=== PATIENT | male | born 1950 | race Caucasian/White ===

== ENCOUNTER → 2016-07-14 | Day surgery (SDC) | payer OTHER ==
[~2016-07-14] VITALS: Ht 165.1 cm; Wt 68.0 kg
[~2016-07-14] MED LIST: ATORVASTATIN CA20 MG PO; CRESTOR10 M1 PO; HYDROCHLOROTH12.5 M1 PO; LISINOPRIL20 MG PO; NORCO 325 MG-51 TAB PO; OMEPRAZOLE40 MG PO; PERCOCET 325 MG1 TA2 PO; TERAZOSIN HCL2 MG PO; VERAPAMIL HCL180 MG PO; ZOFRAN4 MG PO
--- NOTE | 2016-07-14 12:42 | Operative Report ---
Operative/Inv Procedure Report Surgery Date: 07/14/16 Name of Procedure: Right Pleurx catheter Pre-Operative Diagnosis: Symptomatic recurrent right pleural effusion Post-Operative Diagnosis: Same Estimated Blood Loss: none Surgeon/Diet Assistant: NIDHI LYONS,ELDER Núñez JR Anesthesia: local monitored anesthesi Operative/Procedure Note Note: After placement of monitoring lines patient's right chest was prepped and draped in a sterile fashion. 1% lidocaine was used local anesthetic. The thoracic cavity was entered in the midaxillary line off fairly low on the chest. There was brisk return of serosanguineous fluid. The catheter was passed over the needle into the chest and the wire was passed through the catheter with no resistance. Incision was made in the lower chest wall and a counterincision made at the wire entry site. The Pleurx catheter was tunneled from the anterior to posterior incision. The wire tract was then gently dilated and the sheath dilator was passed over the wire with no resistance. The catheter was advanced into the chest through the sheath with no resistance. The posterior incision was closed with a Vicryl subcuticular suture. The catheter was secured to the skin with the silk suture. Approximately 2.3 L of serous effusion was drained and sent for multiple testing. The catheter was capped and dressed with the enclosed dressing. The patient tolerated the procedure well and was brought to the recovery room in stable condition. CC: MARCO LYONS,Anderson MEDEL; KATALINA LYONS,GABBY Gregorio
--- NOTE | 2016-07-14 12:47 | Cons- Thoracic Surgery ---
General Information and HPI Consulting Request Date of Consult: 07/14/16 Requested By: Dr. Corey Reason for Consult: Evaluate for recurrent symptomatic right pleural effusion Source of Information: patient, old records, PCP Exam Limitations: no limitations History of Present Illness: The patient is a 66-year-old gentleman who is a long-standing employee at [employer]. He recently has been having some significant exertional dyspnea. A chest x-ray showed a large right pleural effusion. He had a thoracentesis of 1 L with very prompt reaccumulation. His brass molder is asked him to be evaluated by thoracic surgery for placement of a right Pleurx catheter. Allergies/Medications Allergies: Coded Allergies: NO KNOWN ALLERGIES (02/26/15) Home Med List: Lisinopril 20 MG TAB 20 MG PO DAILY HTN (Reported) Omeprazole 40 MG ECC 40 MG PO D STOMACH (Reported) Rosuvastatin Calcium (Crestor) 10 MG TABLET 1 TAB PO DAILY CHOLESTEROL ( Reported) Terazosin Hydrochloride (Terazosin HCl) 2 MG CAP 2 MG PO DAILY HTN, BPH ( Reported) VERAPAMIL HCL (Verapamil Sr) 180 MG CER 180 MG PO DAILY HTN (Reported) Past History Medical History EENT: NONE Cardiovascular: hypertension, hyperlipidemia Respiratory: NONE Gastrointestinal: INGUINAL HERNIA Hepatic: POLYCYSTIC LIVER ASCITES Renal: POLYCYSTIC KIDNEY Musculoskeletal: NONE Psychiatric: NONE Endocrine: NONE Blood Disorders: NONE Cancer(s): BASAL CELL CARCINOMA 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 He is had no fevers night sweats or chills. There is been no chest pain. The Respess 12 point review systems is unremarkable. Exam & Diagnostic Data Vital Signs and I&O Intake & Output 07/14 1600 05/ 0800 05/03 0000 05/ 1600 05/ 0800 05/ 0000 Intake Total Output Total Balance Patient 150 lb Weight Physical Exam: On physical examination he appears well. His skin is warm and well perfused no suspicious lesions noted. Sclerae are anicteric and his mucous membranes are moist. There is no cervical or subclavicular lymphadenopathy. His breath sounds are diminished significantly on the right base. He is using accessory muscles for breathing. His cardiac exam shows a regular rhythm and rate no murmurs or sounds. His abdomen is distended with obvious cystic masses from his liver disease with significant hepatomegaly. There does not appear to be any ascites or fluid wave. The extremities showed no cyanosis clubbing or edema. His neurologic exam is grossly normal for motor sensory function. Last 24 Hours of Labs: Laboratory Tests 07/14 07/14 1215 1215 Other Body Source Fluid WBC Pending Fld Total RBCs Counted Pending Fluid Total Protein Pending Fluid Tot Bilirubin Pending Fluid LDH Pending Fluid Amylase Pending Imaging Results: CT scan of the chest and plain film chest x-ray show a fairly significant layering right pleural effusion. Assessment/Plan Assessment/Plan The patient has a transudate of recurrent symptomatic right pleural effusion which we suspect may be a secondary process to his liver and kidney cystic disease along with his chronic renal insufficiency. I think a Pleurx catheter will allow for management and allow him to continue to work in keeping him minimally symptomatic. I don't think a thoracoscopy is indicated given the transudate of nature of the fluid. This is was discussed with his brass molder and emissions inspector were in agreement. His echocardiogram shows no evidence of heart failure. The risks and benefits of the procedure been explained to the patient and he understands and agrees. We'll proceed today with a right Pleurx catheter for outpatient management of his recurrent symptomatic right pleural effusion. Consult Acknowledgment - Thank you for your consult request.
--- NOTE | 2016-07-14 13:07 | RADIOLOGY REPORT ---
EXAMINATION: XR PORTABLE CHEST CLINICAL INFORMATION: Pleurx catheter placement. COMPARISON: Chest x-ray 07/13/2016 TECHNIQUE: Portable frontal view of the chest was obtained. FINDINGS: Stable cardiac silhouette. Similar elevation of the right hemidiaphragm. Small to moderate right pleural effusion. No pneumothorax. Poorly visualized right-sided Pleurx catheter. IMPRESSION: No pneumothorax status post Pleurx catheter placement. Similar right pleural effusion.
--- NOTE | 2016-07-14 16:00 | RADIOLOGY REPORT ---
EXAMINATION: XR PORTABLE CHEST CLINICAL INFORMATION: Chest pain COMPARISON: 07/14/2016 at 12:35 pm TECHNIQUE: Portable AP view of the chest was obtained. FINDINGS: The patient reportedly had a pleural drainage catheter placed; however this catheter is not well visualized. Gnyzx-go-mwvihtia right pleural effusion is unchanged in size. No pneumothorax. Cardiac silhouette is partially obscured by the pleural effusion. Thoracic aorta is calcified. There is an old, healed fracture of the right posterolateral sixth rib. IMPRESSION: 1. No acute pulmonary findings compared to the prior radiograph. 2. Xklkb-vj-ichftrjc right pleural effusion is unchanged in size. 3. No pneumothorax.
== END ==
LOC: STS 03:06
DX: J90 Pleural effusion, not elsewhere classified (principal); I12.9 Hypertensive chronic kidney disease with stage 1 through stage 4 chronic kidney disease, or unspecified chronic kidney disease; N18.9 Chronic kidney disease, unspecified; K76.9 Liver disease, unspecified; E78.00 Pure hypercholesterolemia, unspecified; Z87.891 Personal history of nicotine dependence
CPT/HCPCS: 87075; 88305; 93005; 93010; C1729; J0690; J2250

== ENCOUNTER 2017-03-21 14:52 | Inpatient (IN) | payer OTHER ==
[~2017-03-21] VITALS: Ht 167.6 cm; Wt 58.5 kg
[~2017-03-21 14:52] MED LIST changes: +FUROSEMIDE40 M1 PO; -LISINOPRIL20 MG PO; +MEDROL4 M2 PO; +NORCO 5-325 TA1 EACH PO; +OMEPRAZOLE40 M1 PO; -OMEPRAZOLE40 MG PO; +PRINIVIL20 M1 PO; +TERAZOSIN HCL2 M1 PO; -TERAZOSIN HCL2 MG PO; -VERAPAMIL HCL180 MG PO; +VERAPAMIL SR180 MG PO
[2017-03-21 15:37] LABS: ABSOLUTE BASOPHIL COUNT 0 /CUMM (0.0-0.2); ABSOLUTE EOSINOPHIL COUNT 0 /CUMM (0.0-0.7); ABSOLUTE GRANULOCYTE CT 4.2 /CUMM (1.4-6.5); ABSOLUTE LYMPH COUNT 0.6 /CUMM (1.2-3.4); ABSOLUTE MONOCYTE COUNT 0.5 /CUMM (0.10-0.60); BASOPHIL % 0 % (0.0-2.0); EOSINOPHIL % 0.1 % (0-5); GRANULOCYTE % 80.2 % (42.2-75.2); HEMATOCRIT 37.3 % (42-52); MEAN CORPUSCULAR HGB 25.5 PG (27.0-31.0); MEAN CORPUSCULAR VOLUME 79.6 FL (80.0-94.0); MEAN PLATELET VOLUME 11.1 FL (7.4-10.4); PLATELET COUNT 281 /CUMM (130-400); RBC DISTRIBUTION WIDTH 19.5 % (11.5-14.5); RED BLOOD CELL CT 4.69 /CUMM (4.70-6.10); WHITE BLOOD CELL COUNT 5.3 /CUMM (4.8-10.8)
--- NOTE | 2017-03-21 15:38 | ED GENERAL ADULT ---
History of Present Illness General Chief Complaint: General Adult Stated Complaint: "I THINK I GOT THE FLU" Source: patient, family, old records Exam Limitations: no limitations Vital Signs & Intake/Output Vital Signs & Intake/Output Vital Signs Date Time Temp Pulse Resp B/P B/P Pulse O2 O2 Flow FiO2 Mean Ox Delivery Rate 03/22 1200 98 Room Air Room Air 03/22 0800 97 Room Air Room Air 03/22 0800 99.4 109 28 100/64 97 Room Air Room Air 03/22 0400 98 Room Air 03/22 0000 98.3 94 18 90/60 96 Room Air 03/22 0000 99 Room Air 03/21 2225 98 Room Air 03/21 2225 98.3 102 20 94/68 98 Room Air 03/21 2202 101 18 98/71 97 Room Air 03/21 2142 98.3 102 18 86/59 97 Room Air 03/21 2050 96.3 100 18 101/68 96 Room Air 03/21 1903 99.1 100 20 98/63 97 Room Air 03/21 1730 97 Room Air 03/21 1459 98.4 106 20 101/71 96 Room Air ED Intake and Output 03/22 0000 03/21 1200 Intake Total Output Total Balance Patient 150 lb Weight Allergies Coded Allergies: NO KNOWN ALLERGIES (02/26/15) Triage Note: PT TO TRIAGE WITH COMPLAINTS OF N/V/D AND DIFFUSE ABD PAIN THAT STARTED TUESDAY WITH INTERMITTANT FEVERS. ALSO STATES THAT HE IS ACHEY ALL OVER, ABD DISTENDED AND FIRM AT BASE LINE AND STATES THAT HE HAS A CATHETER IN HIS ABD THAT DRAINS INTO A BOTTLE. PT STATES THAT HE HAS POLYCYSTIC LIVER AND KIDNEY Triage Nurses Notes Reviewed? yes Onset: Gradual Duration: day(s): (2) Timing: remote history Injury Environment: home Severity: moderate No Modifying Factors: none HPI: Patient is a 66-year-old male with history of polycystic liver and kidney disease who currently has a Pleurx catheter placed in the abdomen presenting to the emergency department with chief complaint of nausea vomiting and diarrhea times one day. Symptoms started yesterday afternoon. Patient reports about 3-4 episodes of emesis that was nonbloody nonbilious. Patient also reporting 2 episodes of loose watery stool. No blood in the stool. Positive tactile fevers and chills. Positive muscle aches diffusely. Also endorses dry mouth. Decreased by mouth intake since onset of symptoms. No sick contacts or recent travel. Denies recent antibiotic use. Patient also reporting increased abdominal fullness and discomfort. Usually gets his abdomen fluid drained on , has a visiting nurse that comes to his house to do it. (Francie Burgess) Reconcile Medications Furosemide 40 MG TABLET 1 TAB PO Tuesday WATER RETENTION (Reported) Hydrocodone/Acetaminophen ([place] 5-325 Tablet) 5 MG-325 MG TABLET 1-2 TAB PO Q4-6 PRN PRN PAIN Lisinopril (Prinivil) 20 MG TABLET 1 TAB PO DAILY HTN (Reported) Omeprazole 40 MG CAPSULE.DR 1 CAP PO DAILY GI (Reported) Verapamil HCl (Verapamil Sr) 180 MG CAP24H.PEL 1 TAB PO DAILY HTN (Reported) (Jaye LYONS,Quiana) Past History Travel History Traveled to [place] past 21 day No Medical History Any Pertinent Medical History? 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 No (Francie Burgess) Review of Systems Review of Systems Constitutional: Reports: see HPI, chills, fever, malaise. Comments Review of systems: See HPI, All other systems negative. Constitutional, no weight loss HEENT: No visual changes no sore throat no congestion Cardiovascular: No chest pain ,palpitation , orthopnea or ankle swelling Skin, no jaundice no rashes Respiratory: No dyspnea cough sputum or hemoptysis GI: Positive nausea, vomiting, diarrhea : No dysuria No hematuria Muscle skeletal: no back pain, no neck pain, Neurologic: No numbness no confusion, no headache Psych: No stress anxiety or depression,. Heme/endocrine: No bruising no bleeding no polyuria or polydipsia Immunology: No splenectomy or history of AIDS (Francie Burgess) Physical Exam Physical Exam General Appearance: no apparent distress, alert, awake, comfortable, thin Comments: thin person no acute distress HEENT: Pupils equally round and reactive to light and accommodation. Nose is atraumatic. External auditory canal and Tympanic membranes clear. Pharynx normal. No swelling or edema. Dry oral mucosa. Clearing secretions without with the. Neck: Normal inspection, full range of motion. Back: Nontender, no CVA tenderness. Cardiovascular: Tachycardic rate and rhythms no murmurs rubs or gallops, Respiratory: Chest nontender. No respiratory distress.breath sounds slightly diminished to auscultation bilaterally Abdomen: Significantly distended abdomen, diffusely tender to palpation , no appreciable organomegaly. Hypoactive bowel sounds. incresed vascularities on abdomen,. Extremity: No edema, no calf tenderness to palpation, normal and equal pulses. Neuro: Alert oriented x3, motor sensory normal, cranial nerves II through XII grossly intact. Skin: Pale appearing skin. No appreciable rash on exposed skin, skin is warm and dry. Psych: Mood and affect is normal, memory and judgment is normal. Core Measures ACS in differential dx? No CVA/TIA Diagnosis: No Sepsis Present: No Sepsis Focused Exam Completed? No (Ruy GARCIA,Francie) Progress Differential Diagnoses I considered the following diagnoses in my evaluation of the patient: Dehydration, acute kidney injury, peritonitis, worsening ascites, gastroenteritis, electrolyte abnormality, gastritis, colitis, diverticulitis, Plan of Care: Orders Procedure Date/time Status Regular Diet 03/22 L Complete Nothing by Mouth 03/22 D Active Change service to 03/22 1153 Active Change service to 03/22 0919 Active ICU LAB BUNDLE 03/22 0500 Complete CBC WITHOUT DIFFERENTIAL 03/22 0500 Complete LACTIC ACID 03/22 0215 Complete ECHOCARDIOGRAM 03/22 UNK Active Regular Diet 03/21 D Complete LACTIC ACID 03/21 2253 Complete URINE OSMOLALITY 03/21 2246 Complete URINE LYTES, SPOT 03/21 2246 Complete ACTIVE SURVEILLANCE NARES 03/21 2153 Active Intake & Output 03/21 2152 Active Wound Care/Dressing 03/21 2151 Complete Weight 03/21 2151 Active VTE Mechanical Prophylaxis 03/21 2151 Active Vital Signs 03/21 215 Active Turn and Reposition 03/21 215 Active Drains/Tubes 03/21 2150 Active Teach/Educate 03/21 2150 Active Skin Integrity Protocol 03/21 215 Active Skin/Pressure Ulcer Assess (Sk 03/21 2150 Active Precautions 03/21 2150 Active Pain Treatment and Response 03/21 2150 Active Nutritional Intake, Monitor 03/21 2150 Active Isolation 03/21 2150 Active CIWA 03/21 2150 Complete Patient Care Conference 03/21 2150 Active Activity/Ambulation 03/21 2150 Active Pathway - chart 03/21 2101 Active Patient Data 03/21 2022 Active Add-on Test (ER Only) 03/21 2016 Active ARTERIAL BLOOD GAS (GEN) 03/21 2015 Complete Patient Data 03/21 2008 Active Vital Signs 03/21 1914 Active Code Status 03/21 1914 Active ED Holding Orders 03/21 1913 Active Admit to inpatient 03/21 1913 Active BODY FLUID CELL COUNT 03/21 1800 Complete CULTURE,BODY FLUID 03/21 1754 Active Add-on Test (ER Only) 03/21 1556 Active EKG 03/21 1556 Active Add-on Test (ER Only) 03/21 1555 Active PHOSPHORUS 03/21 1513 Complete MAGNESIUM 03/21 1513 Complete LIPASE 03/21 1513 Complete GAMMA GLUTAMYL TRANSFERASE 03/21 1513 Complete AMYLASE 03/21 1513 Complete RAPID VIRAL INFLUENZA A 03/21 1504 Complete URINALYSIS 03/21 1504 Complete COMPREHENSIVE METABOLIC PANEL 03/21 1504 Complete CBC WITHOUT DIFFERENTIAL 03/21 1504 Complete Lab Add-on Test 03/21 UNK Active Current Medications Sig/Lola Start time Last Medication Dose Stop Time Status Admin Ceftriaxone Sodium 1,000 MG DAILY 03/23 1000 AC (Rocephin) Metoclopramide HCl 10 MG Q6P PRN 03/21 2315 AC 03/22 (Reglan) 0652 Sodium Chloride 1,000 ML Q20H 03/21 2245 AC 03/22 (Normal Saline 0.9%) 03/22 1844 0935 Albumin Human 25 GM Q8 03/21 2236 AC 03/22 (Plasbumin) 03/22 1401 0656 Albumin Human 12.5 GM ONCE ONE 03/21 2145 CAN (Plasbumin) 03/21 214 Acetaminophen 325 MG Q4P PRN 03/21 211 AC (Tylenol) Hydrocodone Bitart/ 1 TAB Q6P PRN 03/21 2100 AC Acetaminophen (Vicodin) Morphine Sulfate 2 MG Q4P PRN 03/21 2100 AC 03/22 (Morphine) 1202 Laboratory Tests 03/22/17 0400: Urinalysis MOD H, Urine Color YEL, Urine Clarity HAZY H, Urine pH 5.5, Ur Specific [place] 1.025, Urine Protein 30 H, Urine Ketones NEG, Urine Nitrite NEG, Urine Bilirubin NEG, Urine Urobilinogen 0.2, Ur Leukocyte Esterase NEG, Ur Microscopic SEDIMENT EXAMINED, Urine RBC RARE, Urine WBC 1-3 H, Ur Epithelial Cells RARE, Urine Hemoglobin NEG, Urine Glucose NEG 03/22/17 0400: Urine Osmolality 325, Ur Random Creatinine 127.9, Ur Random Sodium 38, Ur Random Potassium 43.6, Fraction Sodium Excret 0.9 03/22/17 0345: Lactic Acid 1.7 03/22/17 0345: Anion Gap 18 H, Estimated GFR 14 L, Glucose 71, Calcium 7.9 L, Phosphorus 7.8 H, Magnesium 2.1, Total Bilirubin 0.6, AST 27, ALT 31, Albumin 2.8 L, CBC w Diff MAN DIFF ORDERED, RBC 3.97 L, MCV 80.5, MCH 25.8 L, RDW 19.6 H, MPV 10.6 H, Segmented Neutrophils 64, Band Neutrophils 17 H, Lymphocytes 14 L, Monocytes 5, Platelet Estimate ADEQUATE, Hypochromic-Microcytic 1+, Poikilocytosis 2+, Anisocytosis 1+, PUBS MCHC 32.1 L 03/22/17 0145: % Normal PMNs 90, Fluid WBC 8222 H, Fld Mesothelial Cells 10, Fld Total RBCs Counted 794 H 03/21/17 2311: Lactic Acid 2.3 H 03/21/17 2115: pH 7.32 L, pCO2 29 L, pO2 96, HCO3 15 L, ABG O2 Sat (Measured) 97.0, P-50 ( Temp Corrected) N, Carboxyhemoglobin 0.4 L, O2 Concentration % R/A, Temperature 97.3, Phlebotomy Draw Site RIGHT RADIAL 03/21/17 1513: Anion Gap 19 H, Estimated GFR 14 L, BUN/Creatinine Ratio 18.8, Glucose 90, Calcium 8.6, Phosphorus 7.8 H, Magnesium 1.2 L, Total Bilirubin 0.8, GGT 203 H, AST 22, ALT 24, Alkaline Phosphatase 193 H, Total Protein 6.2 L, Albumin 3.0 L, Globulin 3.2, Albumin/Globulin Ratio 0.9 L, Amylase 72, Lipase 28, CBC w Diff MAN DIFF ORDERED, RBC 4.69 L, MCV 79.6 L, MCH 25.5 L, RDW 19.5 H, MPV 11.1 H, Gran % 80.2 H, Lymphocytes % 10.6 L, Monocytes % 9.1, Eosinophils % 0.1, Basophils % 0, Absolute Granulocytes 4.2, Segmented Neutrophils 64, Band Neutrophils 24 H, Absolute Lymphocytes 0.6 L, Lymphocytes 5 L, Monocytes 7, Absolute Monocytes 0.5, Absolute Eosinophils 0, Absolute Basophils 0, Platelet Estimate ADEQUATE, Polychromasia , Hypochromic-Microcytic 1+, Anisocytosis 1+, Microcytic Cells 1+, PUBS MCHC 32.0 L Microbiology 03/22 144 BODY FLUID: Body Fluid Culture - RES 03/22 144 BODY FLUID: Gram Stain - RES 03/21 2199 UPPER RESP: Surveillance Culture - RECD 03/21 2152 GI: Surveillance Culture - CAN Cancelled: PATIENT REFUSED SWAB. 03/21 1506 NASOPHARYN: Influenza Virus A & B Rapid Smear - COMP Diagnostic Imaging: Viewed by Me: CT Scan. Discussed w/RAD: CT Scan. Radiology Impression: PATIENT: AVNI DE SANTIAGO PRESENT AGE: 66 PATIENT ACCOUNT NO: [id number] : 48 LOCATION: [facility] ORDERING PHYSICIAN: Francie GARCIA SERVICE DATE: 03/21/17 EXAM TYPE: CAT - CT ABD & PELVIS W/O IV CONTRAS EXAMINATION: CT ABDOMEN AND PELVIS WITHOUT CONTRAST CLINICAL INFORMATION: Rule out intra-abdominal process. Nausea vomiting and diarrhea. COMPARISON: Chest CT 10/14/[address] of the abdomen and pelvis 02/27/2015. TECHNIQUE: Multidetector volumetric imaging was performed from the superior aspect of the liver through the pubic symphysis. Sagittal and coronal reformatted images were obtained on the technologist's workstation. DLP: 815 mGy -cm FINDINGS: LUNG BASES: The previously seen right-sided pleural effusion has resolved. LIVER, GALLBLADDER, AND BILIARY TREE: There are innumerable cysts replacing the hepatic parenchyma with approximately stable burden of cysts compared with 02/27/2015. For example a large cyst in the left hepatic lobe measures on the order of 13.4 cm, similar compared to prior. The gallbladder is not well seen. A percutaneously inserted catheter is seen along the right hepatic dome, stable in position compared with 10/14/2016. PANCREAS: Poorly defined due to mass effect from numerous hepatic and renal cysts. SPLEEN: Small in size measuring 6.8 cm, previously 9.5 cm. ADRENAL GLANDS: Not well defined. KIDNEYS AND URETERS: The kidneys have been essentially replaced by numerous cysts. A hyperdense lesion is seen in the right renal fossa, which may represent a proteinaceous or hemorrhagic cyst and measures 5.7 cm but is new compared to prior. There are scattered calcifications in both kidneys which may represent calcified cysts however nephrolithiasis cannot be excluded. BLADDER: Grossly normal. GASTROINTESTINAL TRACT: No evidence of bowel obstruction. The appendix is not well delineated. There has been interval development of large amount of ascites. The anterior abdominal wall is markedly protuberant. ABDOMINAL WALL: No focal hernia is seen. LYMPH NODES: No gross lymphadenopathy is seen. VASCULAR: Mild atheromatous changes along the abdominal aorta and its branches. PELVIC VISCERA: Prostate is mildly enlarged. OSSEOUS STRUCTURES: A chronic appearing fracture is seen along the left inferior pubic ramus. IMPRESSION: 1. Numerous cysts effectively replacing the normal hepatic and bilateral renal parenchyma, grossly similar compared to prior. There is a new hyperdense lesion in the right renal fossa which could represent a proteinaceous or hemorrhagic cyst however an underlying mass is not excluded. 2. Interval development of large amount of abdominopelvic ascites. 3. Stable position of a drainage catheter along the right hepatic dome. DICTATED BY: Cliff Woody MD DATE/TIME DICTATED:03/21/171554 RECONCILIATION ANALYST:GAVIOTA DATE/TIME TRANSCRIBED:03/21/171554 CONFIDENTIAL, DO NOT COPY WITHOUT APPROPRIATE AUTHORIZATION. <Electronically signed in Other Vendor System> SIGNED BY: Cliff Woody MD 03/21/17 1618 Initial ED EKG: sinus tachycardia at 105 bpm Comments: We were able to obtain a Pleurx catheter From the operating room, patient refused attempted drainage of his ascites fluid because lumen tip looks different than the typical drainage apparatus that is used to drain his ascites. He did not want him "mess" with the catheter. (Francie Burgess) Departure Departure Time of Disposition: 1845 Disposition: STILL A PATIENT Condition: Stable Clinical Impression Primary Impression: Acute on chronic renal failure Qualifiers: Acute renal failure type: unspecified Chronic kidney disease stage: unspecified stage Qualified Codes: N17.9 - Acute kidney failure, unspecified; N18.9 - Chronic kidney disease, unspecified Secondary Impressions: Hyperkalemia, Hypomagnesemia Referrals: Dominik LYONS,Mervin Fowler (PCP/Family) Departure Forms: Customer Survey General Discharge Information Admission Note Spoke With: Zully Kilpatrick MD Documentation of Exam: Documentation of any treatments & extenuating circumstances including Concerns Regarding Discharge (functional status, medication knowledge or non-compliance, living conditions, etc.) that warrant an admissio rather than observation: pt requiring slow iv hydration, drainage of amniotic fluid, gi consult, nephrology consult, discharge at this time would be medically harmful (Francie Burgess) PA/SECOND CUTTER Co-Sign Statement Statement: ED Attending supervision documentation- [X] I saw and evaluated the patient. I have also reviewed all the pertinent lab results and diagnostic results. I agree with the findings and the plan of care as documented in the PA's/SECOND CUTTER's documentation. [X] I have reviewed the ED Record and agree with the PA's/SECOND CUTTER's documentation. [] Additions or exceptions (if any) to the PAs/SECOND CUTTER's note and plan are summarized below: [] (Jaye LYONS,Quiaan) Critical Care Note Critical Care Note Critical Care Time: 30-74 min (Francie Burgess)
--- NOTE | 2017-03-21 16:18 | CT SCAN REPORT ---
EXAMINATION: CT ABDOMEN AND PELVIS WITHOUT CONTRAST CLINICAL INFORMATION: Rule out intra-abdominal process. Nausea vomiting and diarrhea. COMPARISON: Chest CT 10/14/[address] of the abdomen and pelvis 02/27/2015. TECHNIQUE: Multidetector volumetric imaging was performed from the superior aspect of the liver through the pubic symphysis. Sagittal and coronal reformatted images were obtained on the technologist's workstation. DLP: 815 mGy-cm FINDINGS: LUNG BASES: The previously seen right-sided pleural effusion has resolved. LIVER, GALLBLADDER, AND BILIARY TREE: There are innumerable cysts replacing the hepatic parenchyma with approximately stable burden of cysts compared with 02/27/2015. For example a large cyst in the left hepatic lobe measures on the order of 13.4 cm, similar compared to prior. The gallbladder is not well seen. A percutaneously inserted catheter is seen along the right hepatic dome, stable in position compared with 10/14/2016. PANCREAS: Poorly defined due to mass effect from numerous hepatic and renal cysts. SPLEEN: Small in size measuring 6.8 cm, previously 9.5 cm. ADRENAL GLANDS: Not well defined. KIDNEYS AND URETERS: The kidneys have been essentially replaced by numerous cysts. A hyperdense lesion is seen in the right renal fossa, which may represent a proteinaceous or hemorrhagic cyst and measures 5.7 cm but is new compared to prior. There are scattered calcifications in both kidneys which may represent calcified cysts however nephrolithiasis cannot be excluded. BLADDER: Grossly normal. GASTROINTESTINAL TRACT: No evidence of bowel obstruction. The appendix is not well delineated. There has been interval development of large amount of ascites. The anterior abdominal wall is markedly protuberant. ABDOMINAL WALL: No focal hernia is seen. LYMPH NODES: No gross lymphadenopathy is seen. VASCULAR: Mild atheromatous changes along the abdominal aorta and its branches. PELVIC VISCERA: Prostate is mildly enlarged. OSSEOUS STRUCTURES: A chronic appearing fracture is seen along the left inferior pubic ramus. IMPRESSION: 1. Numerous cysts effectively replacing the normal hepatic and bilateral renal parenchyma, grossly similar compared to prior. There is a new hyperdense lesion in the right renal fossa which could represent a proteinaceous or hemorrhagic cyst however an underlying mass is not excluded. 2. Interval development of large amount of abdominopelvic ascites. 3. Stable position of a drainage catheter along the right hepatic dome.
--- NOTE | 2017-03-21 20:17 | History & Physical ---
General Information and HPI Allergies/Medications Allergies: Coded Allergies: NO KNOWN ALLERGIES (02/26/15) Home Med list Furosemide 40 MG TABLET 1 TAB PO Tuesday WATER RETENTION (Reported) Hydrocodone/Acetaminophen (Mitchells 5-325 Tablet) 5 MG-325 MG TABLET 1-2 TAB PO Q4-6 PRN PRN PAIN Lisinopril (Prinivil) 20 MG TABLET 1 TAB PO DAILY HTN (Reported) Omeprazole 40 MG CAPSULE.DR 1 CAP PO DAILY GI (Reported) Verapamil HCl (Verapamil Sr) 180 MG CAP24H.PEL 1 TAB PO DAILY HTN (Reported) Past History Travel History Traveled to [place] past 21 day No Medical History EENT: NONE Cardiovascular: hypertension, hyperlipidemia Respiratory: NONE Gastrointestinal: INGUINAL HERNIA Hepatic: POLYCYSTIC LIVER ASCITES Renal: POLYCYSTIC KIDNEY Musculoskeletal: NONE Psychiatric: NONE Endocrine: NONE Blood Disorders: NONE Cancer(s): BASAL CELL 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
--- NOTE | 2017-03-21 20:48 | History & Physical ---
Vida Medina 03/21/172046: General Information and HPI MD Statement: I have seen and personally examined AVNI DE SANTIAGO and documented this H&P. The patient is a 66 year old M who presented with a patient stated chief complaint of [nausea vomiting and increase abdominal distention]. Source of Information: patient, family, old records Exam Limitations: no limitations History of Present Illness: This is a pleasant 66-year-old gentleman presented in the emergency room complaining of nausea, and diarrhea and increased abdominal girth and distention for the past 24 hours. PMH: Polycystic kidney disease, cirrhosis/portal hypertension was evaluated in- year-old transplant organ recently according to patient biopsy was done and patient is currently not on any transplant list; x2 pleurex catheter on the right hemithorax: first one first one had migrated, but both remained he has scheduled drained of abdominal ascitic fluid Q tuesday; second catheter was placed on July 2016 and removed in February 2017 for recurrence pleural effusion and another intra abdominal pleurex catheter. His PCP is Dr. Lehman, and he also follows up with Dr. Lisha Moreland, Dr. Carson, Daryl Hearn MD, and Dr. Duque. Patient is a community activity to another lives at home with his . He was at his normal state of health up until yesterday. He became nauseous and vomited 3-4 times and had 3-4 episodes of large-volume brown watery diarrhea without blood and without mucus. Today patient was nauseous and was not able to eat or drink and had fever of 102 at home. He took Tylenol for the fever that suppresses the fever. Patient noticed increasing abdominal distention (more than his usual). Today patient also developed generalized abdominal pain. Patient denies any altered mental status, confusion, constipation, cough, sputum production, chest pain, urinary symptoms. According to patient there has been no unusual incidents preceded his symptoms, patient has not recently times dined outside, no one else with similar symptoms in his household, his last drainage was uneventful on Tuesday. He did not take any of his medication, except Lasix , today including his antihypertensive medications. Upon presentation in the emergency room patient was found to be hypotensive and was started on IV hydration with normal saline and blood pressure relatively improoved. Allergies/Medications Allergies: Coded Allergies: NO KNOWN ALLERGIES (02/26/15) Home Med list Furosemide 40 MG TABLET 1 TAB PO Tuesday WATER RETENTION (Reported) Hydrocodone/Acetaminophen (Two Dot 5-325 Tablet) 5 MG-325 MG TABLET 1-2 TAB PO Q4-6 PRN PRN PAIN Lisinopril (Prinivil) 20 MG TABLET 1 TAB PO DAILY HTN (Reported) Omeprazole 40 MG CAPSULE.DR 1 CAP PO DAILY GI (Reported) Verapamil HCl (Verapamil Sr) 180 MG CAP24H.PEL 1 TAB PO DAILY HTN (Reported) Compliance With Home Meds: GOOD Past History Travel History Traveled to [place] past 21 day No Medical History EENT: NONE Cardiovascular: hypertension, hyperlipidemia Respiratory: NONE Gastrointestinal: INGUINAL HERNIA Hepatic: POLYCYSTIC LIVER ASCITES Renal: POLYCYSTIC KIDNEY Musculoskeletal: NONE Psychiatric: NONE Endocrine: NONE Blood Disorders: NONE Cancer(s): BASAL CELL CARCINOMA 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 SON ( has polycystic kidney disease). Relation not specified for: *No pertinent family history Psychosocial History ETOH Use: denies use Illicit Drug Use: denies illicit drug use Functional Ability ADLs Independent: dressing, eating, toileting, bathing. Ambulation: independent IADLs Independent: shopping, housework, finances, food prep, telephone, transportation , medication admin. 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 Cardiovascular: Reports: no symptoms. Respiratory: Reports: no symptoms. GI: Reports: abdominal pain, diarrhea, distention, vomiting. Genitourinary: Reports: no symptoms. Musculoskeletal: Reports: no symptoms. Skin: Reports: no symptoms. Neurological/Psychological: Reports: no symptoms. All Other Systems: Reviewed and Negative Exam & Diagnostic Data Last 24 Hrs of Vital Signs/I&O Vital Signs Date Time Temp Pulse Resp B/P B/P Pulse O2 O2 Flow FiO2 Mean Ox Delivery Rate 03/21 2202 101 18 98/71 97 Room Air 03/21 2142 98.3 102 18 86/59 97 Room Air 03/210 96.3 100 18 101/68 96 Room Air 03/21 1903 99.1 100 20 98/63 97 Room Air 03/21 1730 97 Room Air 03/21 1459 98.4 106 20 101/71 96 Room Air Intake & Output 03/21 1600 03/21 0800 03/21 0000 Intake Total Output Total Balance Patient 150 lb Weight Physical Exam General Appearance Alert, Oriented X3, Cooperative, No Acute Distress Skin No Rashes, No Breakdown, No Significant Lesion HEENT membranes are dry Neck No JVD, No thryomegaly, +2 Carotid Pulse wo Bruit Lymphatic Axillary nl, Cervical nl Cardiovascular Normal S1, Normal S2, No Murmurs Lungs Clear to Auscultation, Normal Air Movement Abdomen Soft, palpable spleen , abdominal distension and disible abdominal superficial veins , shifting dulness Neurological Normal Speech Extremities No Clubbing, No Cyanosis, weak PT pulses Vascular diminished TP pulses Body Front and Back (Adult) 1) marked abdominal distension Last 24 Hrs of Labs/Clarke: Laboratory Tests 03/21/172114: pH 7.32 L, pCO2 29 L, pO2 96, HCO3 15 L, ABG O2 Sat (Measured) 97.0, P-50 ( Temp Corrected) N, Carboxyhemoglobin 0.4 L, O2 Concentration % R/A, Temperature 97.3, Phlebotomy Draw Site RIGHT RADIAL 03/21/17 1513: Anion Gap 19 H, Estimated GFR 14 L, BUN/Creatinine Ratio 18.8, Glucose 90, Calcium 8.6, Magnesium 1.2 L, Total Bilirubin 0.8, GGT 203 H, AST 22, ALT 24, Alkaline Phosphatase 193 H, Total Protein 6.2 L, Albumin 3.0 L, Globulin 3.2, Albumin/Globulin Ratio 0.9 L, Amylase 72, Lipase 28, CBC w Diff MAN DIFF ORDERED, RBC 4.69 L, MCV 79.6 L, MCH 25.5 L, RDW 19.5 H, MPV 11.1 H, Gran % 80.2 H, Lymphocytes % 10.6 L, Monocytes % 9.1, Eosinophils % 0.1, Basophils % 0, Absolute Granulocytes 4.2, Segmented Neutrophils 64, Band Neutrophils 24 H, Absolute Lymphocytes 0.6 L, Lymphocytes 5 L, Monocytes 7, Absolute Monocytes 0.5, Absolute Eosinophils 0, Absolute Basophils 0, Platelet Estimate ADEQUATE, Polychromasia , Hypochromic-Microcytic 1+, Anisocytosis 1+, Microcytic Cells 1 +, PUBS MCHC 32.0 L Microbiology 03/21 2152 UPPER RESP: Surveillance Culture - ORD 01/08 2153 GI: Surveillance Culture - ORD 03/21 1753 BODY FLUID: Body Fluid Culture - ORD 03/21 1753 BODY FLUID: Gram Stain - ORD 03/21 1506 NASOPHARYN: Influenza Virus A & B Rapid Smear - COMP Diagnostic Data CXR Results pending Other Results abd/pelvis CT scan IMPRESSION: 1. Numerous cysts effectively replacing the normal hepatic and bilateral renal parenchyma, grossly similar compared to prior. There is a new hyperdense lesion in the right renal fossa which could represent a proteinaceous or hemorrhagic cyst however an underlying mass is not excluded. 2. Interval development of large amount of abdominopelvic ascites. 3. Stable position of a drainage catheter along the right hepatic dome. Assessment/Plan Assessment: This is an unfortunate 66-year-old gentleman with advanced polycystic kidney, portal hypertension and ascites secondary to see PCKD chronic pleurex catheter for ascitic fluid drainage presented in the emergency room complaining of increasing abdominal distention and nausea vomiting. Pertinent data WBC: 5.3 and bandemia; H&H: 12/37.3, PLT 281 Sodium 138, potassium 5.8, carbon dioxide 14, Magnesium 1.2, BUN 81, creatinine 4.3 Alkaline phosphatase 193 GGT 203 corrected AG 23 albumin 3 Blood gas: 7.32/29/bicarbonate 15/ 96% in room DD: 11 Lactic acid: List of active problems #1 decompensated cirrhosis/portal hypertension: Possible sepsis secondary to SBP (presence of hypotension tachycardia, elevated BUN and creatinine and significant bandemia). Another possibility could be decompensated cirrhosis/portal hypertension, which was precipitated by episode of gastroenteritis and nausea vomiting and diarrhea and dehydration. #2 SHELBY secondary to possible hepatorenal syndrome versus prerenal azothemia due to dehtdration Vs ATN ( in the setting of hypotension). #3 compensated AGMA and electrolyte derangements Plan * Admit to critical care unit * Ascitic fluid and send samples for microbiology assessment rule out SBP (body fluid Gram stain cell count) * If it was positive for SBP initiates IV ceftriaxone * For now hold off on antibiotic treatment pending above * gentle IV hydration (verbal order by Dr. Oliver) * Hold off Lasix and lisinopril and verapamil- restart as bp and labs alows * Albumin 1.25 g/kg at day 0 and 1 g/kg at day 3 ( 25 g 25% albumin in every 8 h x3 bags) verbally approved by leonila Oliver MD and Dr. Duque * Restrict ins and outs * Replete magnesium and check phosphate level Heparin 5000 units every 8h Pain pathway DNR/DNI As Ranked By This Provider Problem List: 1. Polycystic kidney disease 2. Polycystic liver disease 3. Hyponatremia 4. Renal insufficiency 5. Anemia 6. Sciatica 7. Acute on chronic renal failure Qualifiers Acute renal failure type: unspecified Chronic kidney disease stage: unspecified stage Qualified Codes: N17.9 - Acute kidney failure, unspecified; N18.9 - Chronic kidney disease, unspecified 8. Hypomagnesemia 9. Hyperkalemia Core Measures/Misc (11/28) Acute Coronary Syndrome ACS Diagnosis: No Congestive Heart Failure Congestive Heart Failure Diagnosis No Cerebrovascular Accident CVA/TIA Diagnosis: No VTE (View Protocol) VTE Risk Factors Immobility No Mechanical VTE Prophylaxis d/t N/A MechProphylax Ordered No VTE Pharm Prophylaxis d/t NA PharmProphylax ordered Sepsis (View protocol) Sepsis Present: Yes Resident Review Statement Resident Statement: examined this patient, discussed with planning intern, agreed with planning intern, discussed with family, reviewed EMR data (avail), discussed with nursing , discussed with case mgmt, reviewed images, amended to note Attending MD Review Statement Attending Statement Attending MD Statement: examined this patient, discuss w/resident/PA/CIRCUIT BREAKER MECHANIC, agreed w/resident/PA/CIRCUIT BREAKER MECHANIC, discussed with family, reviewed EMR data (avail), discussed with nursing, discussed with case mgmt, reviewed images, amended to note Finesse,Aarteasha 03/22/17 0418: Attending MD Review Statement Attending Statement Attending MD Statement: examined this patient, discuss w/resident/PA/CIRCUIT BREAKER MECHANIC, agreed w/resident/PA/CIRCUIT BREAKER MECHANIC, discussed with family, reviewed EMR data (avail), reviewed images, amended to note Attending Assessment/Plan: CC: flu like symptoms PMH: Polycystic liver disease, polycystic kidney disease , HTN Patient came to ER for generalized weakness, feeling feverish with a fever of 100 at home, vomiting 3 times and diarrhea 3 times a day since yesterday, nonbloody, associated with abdominal pain which is cracking sensation. Patient states that he usually removes 1 L of ascites fluid through the catheter every week, last time he removed was on february, but compared to his rate of distention this time he noticed "it filled up pretty quick"because of which he is having discomfort and pricking pain in the belly. Patient had Pleurx catheter in the past and was removed in February, does not have any respiratory symptoms with sinus congestion, upper respiratory discharge, cough, expectoration, shortness of breath. No recent dizziness or loss of consciousness episode. Vitals: T max 99.1, pulse 106, RR 20, blood pressure 101/71, saturating well on room air On exam: A O 3, cooperative, no acute distress, neck supple, JVD normal, no lymphadenopathy, mucosa dry, no focal neurological deficit, no dependent edema, no obvious skin rashes or inflammation CVS: S1-S2, RRR. RS: Clear to auscultate bilaterally. Abdomen: Significantly distended, tender, no guarding, no rigidity, palpable spleen, catheter site dressed. , Lower extremities cold and clammy, decreased pulses, radial pulse good volume Labs: WBC 5.3, hemoglobin 11.9, hematocrit 37.3, platelet 281, neutrophils 80%, band 24, sodium 138, potassium 5.8, chloride 104, bicarbonate 14, BUN 81, creatinine 4.3, glucose 90, calcium 8.6, anion gap 19, magnesium 1.2, LFT unremarkable except alkaline phosphatase 193, albumin 3.0, lipase 28 CT abdomen and pelvis: 1. Numerous cysts effectively replacing the normal hepatic and bilateral renal parenchyma, grossly similar compared to prior. There is a new hyperdense lesion in the right renal fossa which could represent a proteinaceous or hemorrhagic cyst however an underlying mass is not excluded. 2. Interval development of large amount of abdominopelvic ascites. 3. Stable position of a drainage catheter along the right hepatic dome. 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 According to him as compared to his usual distention of abdomen since last 6-7 days his abdomen is more distended than usual, having pricking pain in belly. He did not take any of his medications this morning including Lasix or lisinopril or verapamil. Patient's blood pressure was 98/63 in ER, lower extremities cold and clammy, significant abdominal distention with splenomegaly, tender on palpation, no guarding or rigidity. He has left shift on CBC with a band of 24, metabolic acidosis with elevated anion gap and worsening creatinine to 4.3 as compared to 2.9 in February 2017. Patient does not have any runny nose, upper respiratory symptoms, cough or congestion, flu test was negative. CT abdomen was done which confirmed his liver and kidney disease but has significant large volume abdominal pelvis ascites. No evidence of colitis or obstruction. Given his portal hypertension, ascites with bandemia, metabolic acidosis there is a suspicion of SBP. We will send the fluid for differential cell count and cultures. Will also obtain blood cultures, UA urine cultures to rule out any other source of infection. Patient may need antibiotics if evidence of SBP. At the same time patient has developed acute kidney injury on chronic kidney disease probably secondary to dehydration and prerenal in nature. With the current plan of paracentesis, fluid shift will affect her kidney function further, patient may need albumin infusion. Given his current low blood pressure, possibility of further hypotension after paracentesis, suspicion of infection we would admit him to ICU to closely monitor + Acute kidney injury and chronic kidney disease + Suspected SBP + Portal hypertension with ascites + History of polycystic liver disease, polycystic kidney disease , HTN - Admit to ICU - UA urine culture, follow blood culture - Call GI before paracentesis : ? Use of albumin - Replete magnesium - Nephrology consult - Hold all diuretic and antihypertensives - Chest x-ray as patient has history of pleural effusion - Hold off antibiotics till differential cell count is available for paracentesis fluid - Strict I's and O's - Repeat CBC, BMP, LFT in am.
[2017-03-21 22:25] VITALS: BP 94/68
--- NOTE | 2017-03-21 22:54 | RADIOLOGY REPORT ---
EXAMINATION: XR PORTABLE CHEST CLINICAL INFORMATION: Shortness of breath. COMPARISON: 03/03/2017 TECHNIQUE: Portable frontal view of the chest was obtained. FINDINGS: Cardiac leads overlie the chest. Lung volumes are low. Persistent elevation of the right hemidiaphragm. No definite pleural effusion. No consolidation or edema. No pneumothorax. The cardiomediastinal silhouette is unchanged, with a calcified aorta. IMPRESSION: Low lung volumes with elevated right hemidiaphragm. No acute pulmonary findings.
[2017-03-22] VITALS: BP 90/60
--- NOTE | 2017-03-22 04:20 | Admission Certification ---
Admission Certification Certification Statement - As attending physician, I certify that at the time of - admission, based on clinical presentation, severity of - symptoms, need for further diagnostic testing and - therapeutic interventions, and risk of adverse outcomes - without in-hospital treatment, in my clinical assessment, - this patient requires an acute hospital stay for a minimum - of two nights or longer. I have also considered psychsocial - factors such as support system, advanced age, financial - issues, cognitive issues, and failed out-patient treatments, - past re-admission history, safety of patient, and lack of - compliance as applicable. Specific rationale supporting this admission is: Acute kidney injury on chronic kidney disease secondary to polycystic kidney disease, worsening ascites with portal hypertension secondary to polycystic liver disease
[2017-03-22 05:39] LABS: MEAN CORPUSCULAR HGB 25.8 PG (27.0-31.0); MEAN CORPUSCULAR HGB CONC 32.1 G/DL (33.0-37.0); MEAN CORPUSCULAR VOLUME 80.5 FL (80.0-94.0); MEAN PLATELET VOLUME 10.6 FL (7.4-10.4); PLATELET COUNT 224 /CUMM (130-400); RBC DISTRIBUTION WIDTH 19.6 % (11.5-14.5); RED BLOOD CELL CT 3.97 /CUMM (4.70-6.10); WHITE BLOOD CELL COUNT 7.5 /CUMM (4.8-10.8)
[2017-03-22 05:56] LABS: HEMATOCRIT 31.9 % (42-52)
--- NOTE | 2017-03-22 07:33 | PN- Housestaff ---
See Addendum Subjective Follow-up For: Ascites with SBP vs Catheter-associated Peritonitis SHELBY on CKD Hyperkalemia Subjective: Patient had a paracentesis done overnight that drained 1L. He had diarrhea early this morning. He denies nausea, vomiting, abdominal pain or tremors this a.m. Review of Systems Constitutional: Reports: see HPI. Objective Last 24 Hrs of Vital Signs/I&O Vital Signs Date Time Temp Pulse Resp B/P B/P Pulse O2 O2 Flow FiO2 Mean Ox Delivery Rate 03/22 1200 98 Room Air Room Air 03/22 799 97 Room Air Room Air 03/22 799 99.4 109 28 100/64 97 Room Air Room Air 03/22 0400 98 Room Air 03/22 0000 98.3 94 18 90/60 96 Room Air 03/22 0000 99 Room Air 03/21 2225 98 Room Air 03/21 2225 98.3 102 20 94/68 98 Room Air 03/21 2202 101 18 98/71 97 Room Air 03/21 2142 98.3 102 18 86/59 97 Room Air 03/21 2050 96.3 100 18 101/68 96 Room Air 03/21 1903 99.1 100 20 98/63 97 Room Air 03/21 1730 97 Room Air Intake & Output 03/22 1600 03/22 0800 03/22 0000 Intake Total 819 1117 Output Total 1050 Balance 819 67 Intake, Blood 200 Product Intake, IV 619 817 Intake, Oral 200 100 Number 1 Bowel Movements Output, 1000 Drainage Output, Urine 50 Patient 159 lb 150 lb Weight Physical Exam General Appearance: Alert, Oriented X3, Cooperative, No Acute Distress Skin: R pleurx catheter intact, no warmth, drainage or hematoma HEENT: Atraumatic, PERRLA, EOMI Neck: Supple, No JVD, No thryomegaly Cardiovascular: Regular Rate, Normal S1, Normal S2, No Murmurs Lungs: Clear to Auscultation, Normal Air Movement Abdomen: Abdominal distention with caput medusae Extremities: No Edema Current Medications: Current Medications Sig/Lola Start time Last Medication Dose Route Stop Time Status Admin Acetaminophen 325 MG Q4P PRN 03/215 AC PO Albumin Human 25 GM Q8 03/21 2236 DC 03/22 IV 03/22 1401 1512 Albumin Human 12.5 GM ONCE ONE 03/21 2145 CAN IV 03/21 2146 Ceftriaxone Sodium 1,000 MG DAILY 03/23 1000 AC IV Ceftriaxone Sodium 1,000 MG DAILY 03/22 1000 DC 03/22 IV 0943 Hydrocodone Bitart/ 1 TAB Q6P PRN 03/21 2100 AC Acetaminophen PO Magnesium Sulfate 1 GM .STK-MED ONE 03/22 0011 DC IV 03/22 0012 Magnesium Sulfate 1 GM Q2H 03/21 2245 DC 03/22 Dextrose/Water 100 ML IV 03/22 0244 0015 Metoclopramide HCl 10 MG .STK-MED ONE 03/22 0647 DC IM 03/22 0648 Metoclopramide HCl 10 MG .STK-MED ONE 03/22 0011 DC IM 03/22 0012 Metoclopramide HCl 10 MG Q6P PRN 03/21 2315 AC 03/22 IV 0652 Morphine Sulfate 2 MG Q4P PRN 03/21 2100 AC 03/22 IV 1202 Morphine Sulfate 0 .STK-MED ONE 03/21 1725 DC .ROUTE Ondansetron HCl 0 .STK-MED ONE 03/21 1724 DC .ROUTE Sodium Chloride 1,000 ML Q20H 03/21 2245 AC 03/22 IV 03/22 1844 0935 Sodium Chloride 1,000 ML ONCE ONE 03/21 1615 DC 03/21 IV 03/22 0214 1729 Sodium Polystyrene 0 .STK-MED ONE 03/21 1749 DC Sulfonate .ROUTE Sodium Polystyrene 60 ML ONCE ONE 03/21 1730 DC 03/21 Sulfonate PO 03/21 1731 1748 Vancomycin HCl 1,000 MG ONCE ONE 03/22 1200 DC 03/22 Sodium Chloride 250 ML IV 03/22 1259 1308 Last 24 Hrs of Lab/[place]ke Results Last 24 Hrs of Labs/Mics: Laboratory Tests 03/22/17 0400: Urinalysis MOD H, Urine Color YEL, Urine Clarity HAZY H, Urine pH 5.5, Ur Specific [place] 1.025, Urine Protein 30 H, Urine Ketones NEG, Urine Nitrite NEG, Urine Bilirubin NEG, Urine Urobilinogen 0.2, Ur Leukocyte Esterase NEG, Ur Microscopic SEDIMENT EXAMINED, Urine RBC RARE, Urine WBC 1-3 H, Ur Epithelial Cells RARE, Urine Hemoglobin NEG, Urine Glucose NEG 03/22/17 0400: Urine Osmolality 325, Ur Random Creatinine 127.9, Ur Random Sodium 38, Ur Random Potassium 43.6, Fraction Sodium Excret 0.9 03/22/17 0345: Lactic Acid 1.7 03/22/17 0345: Anion Gap 18 H, Estimated GFR 14 L, Glucose 71, Calcium 7.9 L, Phosphorus 7.8 H, Magnesium 2.1, Total Bilirubin 0.6, AST 27, ALT 31, Albumin 2.8 L, CBC w Diff MAN DIFF ORDERED, RBC 3.97 L, MCV 80.5, MCH 25.8 L, RDW 19.6 H, MPV 10.6 H, Segmented Neutrophils 64, Band Neutrophils 17 H, Lymphocytes 14 L, Monocytes 5, Platelet Estimate ADEQUATE, Hypochromic-Microcytic 1+, Poikilocytosis 2+, Anisocytosis 1+, PUBS MCHC 32.1 L 03/22/17 0145: % Normal PMNs 90, Fluid WBC 8222 H, Fld Mesothelial Cells 10, Fld Total RBCs Counted 794 H 03/21/17 2311: Lactic Acid 2.3 H 03/21/175: pH 7.32 L, pCO2 29 L, pO2 96, HCO3 15 L, ABG O2 Sat (Measured) 97.0, P-50 ( Temp Corrected) N, Carboxyhemoglobin 0.4 L, O2 Concentration % R/A, Temperature 97.3, Phlebotomy Draw Site RIGHT RADIAL Microbiology 03/22 1453 URINE ROUT: Urine Culture - COLB 03/22 1453 BLOOD: Blood Culture - COLB 03/22 145 BLOOD: Blood Culture - COLB 03/22 144 BODY FLUID: Body Fluid Culture - RES 03/22 144 BODY FLUID: Gram Stain - RES 03/21 220 UPPER RESP: Surveillance Culture - RECD 03/21 2152 GI: Surveillance Culture - CAN Cancelled: PATIENT REFUSED SWAB. Assessment/Plan Assessment: Mr. Tijerina is a 66 yo m with a PMH of PKD, Polycystic liver disease, portal HTN , HTN, HLD, umbilical hernia repair, colon ademona, GERD who presented to the ED with NVD with progressively worsened abdominal distention from ascitic fluid. Ascites with SBP vs Catheter-associated Peritonitis Patient had an indwelling pleural catheter placed in July 2016 for pleural effusion that migrated into the abdominal cavity. Considering that the patient's catheter was never removed it can be a possible source of infection. He had another catheter placed in the R lung that was eventually removed. CT abdomen/ pelvis on admission demonstrated the resolution of his R-side pleural effusion. He gets 1L of ascitic fluid drained from the migrated Pleurx catheter on . Prior to coming to the hospital it was last drained on Tuesday by his visiting nurse. He had a diagnostic and therapeutic paracentesis performed overnight. His ascitic fluid white count was 8222. * ID recommendations appreciated * GI recommendations appreciated * Continue Ceftriaxone as per GI * Continue Metoclopramide for nausea * Give 1 dose of Vancomycin * Random Vancomycin level in a.m. * Scheduled removal of indwelling catheter in a.m by Dr. Carson * Repeat paracentesis for fluid analysis with total protein * Follow up ascitic fluid culture results SHELBY on CKD most likely 2/2 dehydration in the setting of his CKD from PKD Patient is reported to have a baseline of 2-3. His Cr is now 4.3. He was given 2L of IVF and is currently on an albumin infusion. * Monitor renal function * Continue IV Albumin 25 gm q8 * Continue NS IVF History of PKD, Polycystic liver disease Patient reported he had an appt at [facility] in which he was told he wouldn't receive a transplant until the resolution of his ascitic fluid. CT abd/pel demonstrated numerous cysts effectively replacing the normal hepatic and bilateral renal parenchyma * ECHO to r/o SHD or valvular abnormalities Hyperkalemia * Monitor potassium * Start 2g potassium restriction in diet Diet: NPO DVT ppx: ALPS Problem List: 1. Polycystic kidney disease 2. Polycystic liver disease 3. Renal insufficiency 4. Hyperkalemia Pain Ratin Pain Location: NA Pain Goal: Remain pain free Pain Plan: Hydrocodone Morphine Tomorrow's Labs & Rationales: CBC, Bundle, Vanco level
[2017-03-22 08:00] VITALS: BP 100/64
--- NOTE | 2017-03-22 10:14 | Cons- Nephrology ---
General Information and HPI Consulting Request Date of Consult: 03/22/17 Requested By: Celso Molina MD Reason for Consult: Acute kidney injury Source of Information: patient, old records Exam Limitations: no limitations History of Present Illness: This 66-year-old gentleman has a history of autism will dominant polycystic kidney disease. He presented yesterday to the emergency room with nausea, vomiting and diarrhea. He has not eaten anything essentially since Tuesday. In the course of his evaluation, he was found to have acute kidney injury with an elevated serum creatinine of 4.3, this is an increase from his previous baseline. In addition, he underwent a paracentesis which showed a cell count in his ascitic fluid the very elevated(8222). He has a history of sciatica recently, but does not use any nonsteroidal anti-inflammatory drugs. He is not received any IV contrast. He denies any melena or hematochezia. Is a remote history of kidney stones. He gets up 3 or 4 times a night to void however this is not new. He has not had any dysuria. He is not had any back pain. Allergies/Medications Allergies: Coded Allergies: NO KNOWN ALLERGIES (02/26/15) Home Med List: Furosemide 40 MG TABLET 1 TAB PO Tuesday WATER RETENTION (Reported) Hydrocodone/Acetaminophen ([place] 5-325 Tablet) 5 MG-325 MG TABLET 1-2 TAB PO Q4-6 PRN PRN PAIN Lisinopril (Prinivil) 20 MG TABLET 1 TAB PO DAILY HTN (Reported) Omeprazole 40 MG CAPSULE.DR 1 CAP PO DAILY GI (Reported) Verapamil HCl (Verapamil Sr) 180 MG CAP24H.PEL 1 TAB PO DAILY HTN (Reported) Current Medications: Current Medications Sig/Lola Start time Last Medication Dose Route Stop Time Status Admin Acetaminophen 325 MG Q4P PRN 03/21 2115 AC PO Albumin Human 25 GM Q8 03/21 2236 AC 03/22 IV 03/22 1401 0656 Albumin Human 12.5 GM ONCE ONE 03/21 2145 CAN IV 03/21 2146 Ceftriaxone Sodium 1,000 MG DAILY 03/22 1000 AC 03/22 IV 0943 Hydrocodone Bitart/ 1 TAB Q6P PRN 03/21 2100 AC Acetaminophen PO Magnesium Sulfate 1 GM .STK-MED ONE 03/22 0011 DC IV 03/22 0012 Magnesium Sulfate 1 GM Q2H 03/21 2245 DC 03/22 Dextrose/Water 100 ML IV 03/22 0244 0015 Metoclopramide HCl 10 MG .STK-MED ONE 03/22 0011 DC IM 03/22 0012 Metoclopramide HCl 10 MG Q6P PRN 03/21 2315 AC 03/22 IV 0652 Morphine Sulfate 2 MG Q4P PRN 03/21 2100 AC 03/22 IV 0707 Morphine Sulfate 0 .STK-MED ONE 03/21 1725 DC .ROUTE Morphine Sulfate 4 MG ONCE ONE 03/21 1600 DC 03/21 IV 03/21 1601 1729 Ondansetron HCl 0 .STK-MED ONE 03/21 1724 DC .ROUTE Ondansetron HCl 4 MG ONCE ONE 03/21 1545 DC 03/21 IV 03/21 1546 1729 Sodium Chloride 1,000 ML Q20H 03/21 2245 AC 03/22 IV 03/22 1844 0935 Sodium Chloride 1,000 ML ONCE ONE 03/21 1615 DC 03/21 IV 03/22 0214 1729 Sodium Polystyrene 0 .STK-MED ONE 03/21 1749 DC Sulfonate .ROUTE Sodium Polystyrene 60 ML ONCE ONE 03/21 1730 DC 03/21 Sulfonate PO 03/21 1731 1748 Review of Systems Review of Systems Constitutional: Reports: chills, fever. EENTM: Denies: blurred vision, double vision, visual changes, hearing changes, epistaxis, throat pain. Cardiovascular: Denies: chest pain, edema, orthopena, palpitations, peripheral edema, syncope. Respiratory: Denies: orthopnea, short of breath, sputum production. GI: Reports: bloating, diarrhea, distention, nausea, vomiting. Denies: abdominal pain, bowel incontinence, melena, bloody stool. Genitourinary: Denies: discharge, dysuria, frequency, hematuria, hesitation, nocturia, pain, urgency. Musculoskeletal: Denies: back pain, gout, joint pain, joint swelling, muscle pain, muscle stiffness. Neurological/Psychological: Denies: numbness, paresthesia, other (Sciatica). Hematologic/Endocrine: Denies: polyuria. 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 SON ( has polycystic kidney disease). Relation not specified for: *No pertinent family history Psychosocial History Where Do You Live? Home Smoking Status: Never Smoked ETOH Use: denies use Illicit Drug Use: denies illicit drug use Functional Ability ADLs Independent: dressing, eating, toileting, bathing. Ambulation: independent IADLs Independent: shopping, housework, finances, food prep, telephone, transportation , medication admin. 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 Exam & Diagnostic Data Vital Signs and I&O Vital Signs Date Time Temp Pulse Resp B/P B/P Pulse O2 O2 Flow FiO2 Mean Ox Delivery Rate 03/22 0800 97 Room Air Room Air 03/22 0800 99.4 109 28 100/64 97 Room Air Room Air 03/22 0400 98 Room Air 03/22 0000 98.3 94 18 90/60 96 Room Air 03/22 0000 99 Room Air 03/21 2225 98 Room Air 03/21 2225 98.3 102 20 94/68 98 Room Air 03/21 2202 101 18 98/71 97 Room Air 03/21 2142 98.3 102 18 86/59 97 Room Air 03/21 2050 96.3 100 18 101/68 96 Room Air 03/21 1903 99.1 100 20 98/63 97 Room Air 03/21 1730 97 Room Air 03/21 1459 98.4 106 20 101/71 96 Room Air Intake & Output 03/22 1600 03/22 0400 03/21 1600 03/21 0400 03/20 1600 03/20 0400 Intake Total 1117 Output Total 1050 Balance 67 Intake, Blood 200 Product Intake, IV 817 Intake, Oral 100 Number 1 Bowel Movements Output, 1000 Drainage Output, Urine 50 Patient 159 lb 150 lb 150 lb Weight Physical Exam General Appearance: well developed/nourished, no apparent distress, alert, awake , thin Head: atraumatic, normal appearance Eyes: Bilateral: PERRL, EOMI, pale conjunctivae. Ears, Nose, Throat: normal pharynx, normal ENT inspection, hearing grossly normal Neck: normal inspection, supple, full range of motion Respiratory: normal breath sounds, chest non-tender, lungs clear Cardiovascular: regular rate/rhythm Peripheral Pulses: 3+ popliteal (R), 3+ popliteal (L), 3+ tibialis posterior (R), 3+ tibialis posterior (L), 3+ dorsalis pedis (R), 3+ dorsalis pedis (L) Gastrointestinal: normal bowel sounds, non-tender, distention, hepatomegaly, palpable cysts, caput medusae Back: normal inspection, no vertebral tenderness Extremities: normal inspection Neurologic/Psych: awake, alert, oriented x 3, No grosss neurologic deficit Cranial Nerves: normal hearing, normal speech, PERRL Skin: intact, normal color, warm/dry Results Pertinent Lab Results: Laboratory Tests 03/22 03/22 03/22 03/22 0400 0400 0345 0345 Chemistry Sodium (137 - 145 mmol/L) 139 Potassium (3.5 - 5.1 mmol/L) 5.6 H Chloride (98 - 107 mmol/L) 104 Carbon Dioxide (22 - 30 mmol/L) 17 L Anion Gap (5 - 16) 18 H BUN (9 - 20 mg/dL) 86 H Creatinine (0.7 - 1.2 mg/dL) 4.3 H Estimated GFR (>60 ml/min) 14 L Glucose (65 - 99 mg/dL) 71 Lactic Acid (0.7 - 2.1 mmol/L) 1.7 Calcium (8.4 - 10.2 mg/dL) 7.9 L Phosphorus (2.5 - 4.5 mg/dL) 7.8 H Magnesium (1.6 - 2.3 mg/dL) 2.1 Total Bilirubin (0.2 - 1.3 mg/dL) 0.6 AST (17 - 59 U/L) 27 ALT (21 - 72 U/L) 31 Albumin (3.5 - 5.0 g/dL) 2.8 L Hematology CBC w Diff Pending WBC Pending RBC Pending Hgb Pending Hct Pending MCV Pending MCH Pending RDW Pending Plt Count Pending MPV Pending PUBS MCHC Pending Urines Urinalysis MOD H Urine Color (YEL,AMB,STR) YEL Urine Clarity (CLEAR) HAZY H Urine pH (5.0 - 8.0) 5.5 Ur Specific [place] (1.001 - 1.035) 1.025 Urine Protein (NEG,<30 MG/DL) 30 H Urine Ketones (NEG) NEG Urine Nitrite (NEG) NEG Urine Bilirubin (NEG) NEG Urine Urobilinogen (0.1 - 1.0 EU/dl) 0.2 Ur Leukocyte Esterase (NEG) NEG Ur Microscopic SEDIMENT EXAMINED Urine RBC (0 - 5 /HPF) RARE Urine WBC (0 - 2 /HPF) 1-3 H Ur Epithelial Cells (NONE,FEW) RARE Urine Hemoglobin (NEG) NEG Urine Osmolality (300 - 1000 MOSM/KG) 325 Ur Random Creatinine (mg/dL) 127.9 Ur Random Sodium (30 - 90 mmol/L) 38 Ur Random Potassium (mmol/L) 43.6 Fraction Sodium Excret (<1% %) 0.9 Urine Glucose (N MG/DL) NEG 03/22 03/21 03/21 0145 2311 2115 Blood Gas pH (7.35 - 7.45 PH) 7.32 L pCO2 (35 - 45 TORR) 29 L pO2 (80 - 100 TORR) 96 HCO3 (21 - 28 MEQ/L) 15 L ABG O2 Sat (Measured) (>96.0 %) 97.0 P-50 (Temp Corrected) N Carboxyhemoglobin (1.5 - 5.0 %) 0.4 L O2 Concentration % R/A Temperature (97.0 - 100.0 FARH) 97.3 Chemistry Lactic Acid (0.7 - 2.1 mmol/L) 2.3 H Hematology % Normal PMNs (%) 90 Miscellaneous Phlebotomy Draw Site RIGHT RADIAL Other Body Source Fluid WBC (0 - 5 /CUMM) 8222 H Fld Mesothelial Cells (%) 10 Fld Total RBCs Counted (0 /CUMM) 794 H 03/21 1513 Chemistry Sodium (137 - 145 mmol/L) 138 Potassium (3.5 - 5.1 mmol/L) 5.8 H Chloride (98 - 107 mmol/L) 104 Carbon Dioxide (22 - 30 mmol/L) 14 L Anion Gap (5 - 16) 19 H BUN (9 - 20 mg/dL) 81 H Creatinine (0.7 - 1.2 mg/dL) 4.3 H Estimated GFR (>60 ml/min) 14 L BUN/Creatinine Ratio (7 - 25 %) 18.8 Glucose (65 - 99 mg/dL) 90 Calcium (8.4 - 10.2 mg/dL) 8.6 Phosphorus (2.5 - 4.5 mg/dL) 7.8 H Magnesium (1.6 - 2.3 mg/dL) 1.2 L Total Bilirubin (0.2 - 1.3 mg/dL) 0.8 GGT (15 - 73 U/L) 203 H AST (17 - 59 U/L) 22 ALT (21 - 72 U/L) 24 Alkaline Phosphatase (< 127 U/L) 193 H Total Protein (6.3 - 8.2 g/dL) 6.2 L Albumin (3.5 - 5.0 g/dL) 3.0 L Globulin (1.9 - 4.2 gm/dL) 3.2 Albumin/Globulin Ratio (1.1 - 2.2 %) 0.9 L Amylase (30 - 110 U/L) 72 Lipase (23 - 300 U/L) 28 Hematology CBC w Diff MAN DIFF ORDERED WBC (4.8 - 10.8 /CUMM) 5.3 RBC (4.70 - 6.10 /CUMM) 4.69 L Hgb (14.0 - 18.0 G/DL) 11.9 L Hct (42 - 52 %) 37.3 L MCV (80.0 - 94.0 FL) 79.6 L MCH (27.0 - 31.0 PG) 25.5 L RDW (11.5 - 14.5 %) 19.5 H Plt Count (130 - 400 /CUMM) 281 MPV (7.4 - 10.4 FL) 11.1 H Gran % (42.2 - 75.2 %) 80.2 H Lymphocytes % (20.5 - 51.1 %) 10.6 L Monocytes % (1.7 - 9.3 %) 9.1 Eosinophils % (0 - 5 %) 0.1 Basophils % (0.0 - 2.0 %) 0 Absolute Granulocytes (1.4 - 6.5 /CUMM) 4.2 Segmented Neutrophils (42.2 - 75.2 %) 64 Band Neutrophils (0.0 - 5.0 %) 24 H Absolute Lymphocytes (1.2 - 3.4 /CUMM) 0.6 L Lymphocytes (20.5 - 51.1 %) 5 L Monocytes (1.7 - 9.3 %) 7 Absolute Monocytes (0.10 - 0.60 /CUMM) 0.5 Absolute Eosinophils (0.0 - 0.7 /CUMM) 0 Absolute Basophils (0.0 - 0.2 /CUMM) 0 Platelet Estimate (ADEQUATE) ADEQUATE Polychromasia Hypochromic-Microcytic 1+ Anisocytosis 1+ Microcytic Cells 1+ PUBS MCHC (33.0 - 37.0 G/DL) 32.0 L Assessment/Plan Assessment/Recommendations Assessment: 1. SHELBY-acute kidney injury. This is related both to his poor by mouth intake coupled with the nausea vomiting diarrhea. The hyperkalemia is easily explained by the provider depletion coupled with his taking his blood pressure medicines specifically the lisinopril. At this point, as discussed with housestaff during the night, favor using the 25% albumin every 8 hours. It is very unusual to see liver involvement to this extent with the person actually develops ascites. In addition, he has 8000 white cells on a paracentesis specimen. This a be unusual disease spontaneous bacterial peritonitis in a gentleman with ADPKD. His serum creatinine has been running 2.3-2.9. He recently saw Daryl Hearn MD as an outpatient. Of note, he has not used any nonsteroidal anti-inflammatory drugs or had any changes in his medicines. His last visit with nephrology was on . 2. Chronic kidney disease. This is due to autosomal dominant polycystic kidney disease. On a recent visit with Daryl Hearn MD, renal replacement therapy was discussed. Keep in mind, with a creatinine of 2.9, it would not be expected that he would need dialysis any time soon. The choice of renal replacement therapy was discussed. Of note, his serum creatinine is been ranging anywhere between 2.4-3.1 over the past year. 3. Volume status. Although he has ascites, he looks peripherally as if he needs fluid 4. Liver disease. The presence of cysts in the liver and the kidneys are what dictates or makes the diagnosis of autosomal dominant polycystic kidney disease. It is unusual to see this degree of ascites. He tells me that he had been seen at [facility] and was told he did not have cirrhosis. 5 hypertension 6. Spontaneous bacterial peritonitis 7. Would continue with IV fluids and antibiotics. 8. Would also continue with the salt poor albumin at 25% every 8 hours. 9. There is no urgent dialytic need. . Recommendations: 1. Would continue with IV fluids and antibiotics. 2 . Would also continue with the salt poor albumin at 25% every 8 hours. 3 . There is no urgent dialytic need. 4 . Strict intakes and outputs 5. Daily weights. 6. Daily BMP
--- NOTE | 2017-03-22 13:34 | PN- Att Addend ---
Attending Addendum Attending Brief Note Patient seen and examined. Discussed with medical lab scientist, internet marketing consultant, Dr. Beck and Dr. Carson. This is a 66-year-old male with a past medical history of autosomal dominant polycystic kidney disease with chronic kidney disease whose baseline creatinine on February 22 was 2.9. Off note he's had ascites with multiple liver cysts and since June -July of this year has had a Pleurx catheter placed which migrated into his abdomen. It has been used as a palliative catheter and visiting nurse has been draining 1 L of ascitic fluid every week through this Pleurx catheter. He also had a Pleurx catheter placed into his pleural space in the past, but that achieved necessary pleurodesis and was taken out. He has been evaluated by Dr. Austin as an outpatient and has even seen a [facility] marine scientist for the possibility of a kidney transplant. He was admitted to the ICU yesterday hypotensive, with SHELBY on CKD with hyperkalemia and had a ascitic fluid paracentesis done which revealed 8000 white cells 90% polys. At this point I don't think this is spontaneous bacterial peritonitis and I worry more about catheter associated peritonitis. His last numbers from June- July revealed SAAG of greater than 1.1 but his total protein in the ascitic fluid at that time was >3. He's been started on ceftriaxone empirically to cover for SBP and I've spoken to the resident about calling a formal ID consult and adding vancomycin to cover for MRSA and other skin organisms. He is getting IV albumin per renal and IV fluids per renal. All nephrotoxics are on hold and his potassium is improved to 5.6. We'll continue to watch him in the unit for now, follow-up on formal GI and ID consults, continue antibiotics, continue albumin and watch closely.
--- NOTE | 2017-03-22 15:29 | Cons- Infect Disease ---
General Information and HPI Consulting Request Date of Consult: 03/22/17 Requested By: Celso Molina MD Reason for Consult: Neutrophilic ascites Source of Information: patient, old records History of Present Illness: This is a 66-year-old man with a history of polycystic kidney and liver disease, hypertension and chronic kidney disease, with a recurrent right pleural transudative effusion, for which a pleurx catheter was placed 8 months prior to admission, with apparent migration of this catheter into the peritoneal cavity approximately 5 months prior to admission, with placement of a new Pleurx catheter at that time, with removal of 1 L of ascitic fluid through the Pleurx catheter weekly since this migration, with removal of the replacement pleural catheter one month prior to admission after resolution of the effusion, admitted on March 21 with the acute onset of nausea, vomiting, abdominal pain, diarrhea, fevers and chills. On admission he was afebrile. Laboratory data revealed a white blood cell count of 5000, with 64 segs and 24 bands, BUN/creatinine 81 and 4.3, potassium 5.8, alkaline phosphatase 193. Chest x-ray was negative for any acute process. CT of the abdomen and pelvis revealed numerous liver and renal cysts, with a new hyperdense lesion in the right renal fossa; interval development of a large amount of abdominopelvic ascites. He was begun on Ceftriaxone this morning after the ascitic fluid was found to have an elevated white blood cell count, with one dose of Vancomycin given this afternoon. No blood cultures were obtained. He feels somewhat improved this afternoon with no further vomiting but still notes abdominal discomfort. Allergies/Medications Allergies: Coded Allergies: NO KNOWN ALLERGIES (02/26/15) Home Med List: Furosemide 40 MG TABLET 1 TAB PO Tuesday WATER RETENTION (Reported) Hydrocodone/Acetaminophen ([place] 5-325 Tablet) 5 MG-325 MG TABLET 1-2 TAB PO Q4-6 PRN PRN PAIN Lisinopril (Prinivil) 20 MG TABLET 1 TAB PO DAILY HTN (Reported) Omeprazole 40 MG CAPSULE.DR 1 CAP PO DAILY GI (Reported) Verapamil HCl (Verapamil Sr) 180 MG CAP24H.PEL 1 TAB PO DAILY HTN (Reported) Past History Travel History Traveled to [place] past 21 day No Medical History Blood Transfusion Hx: No Neurological: Sciatica EENT: NONE Cardiovascular: hypertension, hyperlipidemia Respiratory: NONE Gastrointestinal: INGUINAL HERNIA Hepatic: POLYCYSTIC LIVER ASCITES PLEUREX CATH DRAIN TO R ABD Ascites Renal: POLYCYSTIC KIDNEY Musculoskeletal: NONE Psychiatric: NONE Endocrine: NONE Blood Disorders: NONE Cancer(s): BASAL CELL 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 SON ( has polycystic kidney disease). Relation not specified for: *No pertinent family history Psychosocial History Where Do You Live? Home Smoking Status: Never Smoked ETOH Use: denies use Illicit Drug Use: denies illicit drug use Functional Ability ADLs Independent: dressing, eating, toileting, bathing. Ambulation: independent IADLs Independent: shopping, housework, finances, food prep, telephone, transportation , medication admin. 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 Review of Systems Review of Systems All Other Systems: Reviewed and Negative Exam & Diagnostic Data Last 24 Hrs of Vital Signs/I&O Vital Signs Date Time Temp Pulse Resp B/P B/P Pulse O2 O2 Flow FiO2 Mean Ox Delivery Rate 03/22 1200 98 Room Air Room Air 03/22 0800 97 Room Air Room Air 03/22 0800 99.4 109 28 100/64 97 Room Air Room Air 03/22 0400 98 Room Air 03/22 0000 98.3 94 18 90/60 96 Room Air 03/22 0000 99 Room Air 03/21 2225 98 Room Air 03/21 2225 98.3 102 20 94/68 98 Room Air 03/21 2202 101 18 98/71 97 Room Air 03/21 2142 98.3 102 18 86/59 97 Room Air 03/21 2050 96.3 100 18 101/68 96 Room Air 03/21 1903 99.1 100 20 98/63 97 Room Air 03/21 1730 97 Room Air Intake & Output 03/22 1600 03/22 0800 03/22 0000 Intake Total 819 1117 Output Total 1050 Balance 819 67 Intake, Blood 200 Product Intake, IV 619 817 Intake, Oral 200 100 Number 1 Bowel Movements Output, 1000 Drainage Output, Urine 50 Patient 159 lb 150 lb Weight Physical Exam Other Physical Findings: Afebrile. He is awake and alert, cachectic appearing, but in no acute distress. Skin reveals no rash. HEENT negative. Neck is supple with no adenopathy. Chest pleurx catheter in the right lower chest with no inflammation at the site. Lungs are clear. Heart regular rhythm with no murmur. Abdomen is markedly distended, tender to palpation over the left lower quadrant, with positive bowel sounds. Back no CVA tenderness. Extremities 1+ edema both lower extremities. Neuro is without focality. Last 24 Hours of Lab Results: Laboratory Tests 03/22 03/22 03/22 0400 0400 0345 Chemistry Lactic Acid (0.7 - 2.1 mmol/L) 1.7 Urines Urinalysis MOD H Urine Color (YEL,AMB,STR) YEL Urine Clarity (CLEAR) HAZY H Urine pH (5.0 - 8.0) 5.5 Ur Specific [place] (1.001 - 1.035) 1.025 Urine Protein (NEG,<30 MG/DL) 30 H Urine Ketones (NEG) NEG Urine Nitrite (NEG) NEG Urine Bilirubin (NEG) NEG Urine Urobilinogen (0.1 - 1.0 EU/dl) 0.2 Ur Leukocyte Esterase (NEG) NEG Ur Microscopic SEDIMENT EXAMINED Urine RBC (0 - 5 /HPF) RARE Urine WBC (0 - 2 /HPF) 1-3 H Ur Epithelial Cells (NONE,FEW) RARE Urine Hemoglobin (NEG) NEG Urine Osmolality (300 - 1000 MOSM/KG) 325 Ur Random Creatinine (mg/dL) 127.9 Ur Random Sodium (30 - 90 mmol/L) 38 Ur Random Potassium (mmol/L) 43.6 Fraction Sodium Excret (<1% %) 0.9 Urine Glucose (N MG/DL) NEG 03/22 03/22 03/21 0345 0145 2311 Chemistry Sodium (137 - 145 mmol/L) 139 Potassium (3.5 - 5.1 mmol/L) 5.6 H Chloride (98 - 107 mmol/L) 104 Carbon Dioxide (22 - 30 mmol/L) 17 L Anion Gap (5 - 16) 18 H BUN (9 - 20 mg/dL) 86 H Creatinine (0.7 - 1.2 mg/dL) 4.3 H Estimated GFR (>60 ml/min) 14 L Glucose (65 - 99 mg/dL) 71 Lactic Acid (0.7 - 2.1 mmol/L) 2.3 H Calcium (8.4 - 10.2 mg/dL) 7.9 L Phosphorus (2.5 - 4.5 mg/dL) 7.8 H Magnesium (1.6 - 2.3 mg/dL) 2.1 Total Bilirubin (0.2 - 1.3 mg/dL) 0.6 AST (17 - 59 U/L) 27 ALT (21 - 72 U/L) 31 Albumin (3.5 - 5.0 g/dL) 2.8 L Hematology CBC w Diff MAN DIFF ORDERED WBC (4.8 - 10.8 /CUMM) 7.5 RBC (4.70 - 6.10 /CUMM) 3.97 L Hgb (14.0 - 18.0 G/DL) 10.2 L Hct (42 - 52 %) 31.9 L MCV (80.0 - 94.0 FL) 80.5 MCH (27.0 - 31.0 PG) 25.8 L RDW (11.5 - 14.5 %) 19.6 H Plt Count (130 - 400 /CUMM) 224 MPV (7.4 - 10.4 FL) 10.6 H Segmented Neutrophils (42.2 - 75.2 %) 64 Band Neutrophils (0.0 - 5.0 %) 17 H Lymphocytes (20.5 - 51.1 %) 14 L Monocytes (1.7 - 9.3 %) 5 % Normal PMNs (%) 90 Platelet Estimate (ADEQUATE) ADEQUATE Hypochromic-Microcytic 1+ Poikilocytosis 2+ Anisocytosis 1+ PUBS MCHC (33.0 - 37.0 G/DL) 32.1 L Other Body Source Fluid WBC (0 - 5 /CUMM) 8222 H Fld Mesothelial Cells (%) 10 Fld Total RBCs Counted (0 /CUMM) 794 H 03/21 03/21 2115 1513 Blood Gas pH (7.35 - 7.45 PH) 7.32 L pCO2 (35 - 45 TORR) 29 L pO2 (80 - 100 TORR) 96 HCO3 (21 - 28 MEQ/L) 15 L ABG O2 Sat (Measured) (>96.0 %) 97.0 P-50 (Temp Corrected) N Carboxyhemoglobin (1.5 - 5.0 %) 0.4 L O2 Concentration % R/A Temperature (97.0 - 100.0 FARH) 97.3 Chemistry Sodium (137 - 145 mmol/L) 138 Potassium (3.5 - 5.1 mmol/L) 5.8 H Chloride (98 - 107 mmol/L) 104 Carbon Dioxide (22 - 30 mmol/L) 14 L Anion Gap (5 - 16) 19 H BUN (9 - 20 mg/dL) 81 H Creatinine (0.7 - 1.2 mg/dL) 4.3 H Estimated GFR (>60 ml/min) 14 L BUN/Creatinine Ratio (7 - 25 %) 18.8 Glucose (65 - 99 mg/dL) 90 Calcium (8.4 - 10.2 mg/dL) 8.6 Phosphorus (2.5 - 4.5 mg/dL) 7.8 H Magnesium (1.6 - 2.3 mg/dL) 1.2 L Total Bilirubin (0.2 - 1.3 mg/dL) 0.8 GGT (15 - 73 U/L) 203 H AST (17 - 59 U/L) 22 ALT (21 - 72 U/L) 24 Alkaline Phosphatase (< 127 U/L) 193 H Total Protein (6.3 - 8.2 g/dL) 6.2 L Albumin (3.5 - 5.0 g/dL) 3.0 L Globulin (1.9 - 4.2 gm/dL) 3.2 Albumin/Globulin Ratio (1.1 - 2.2 %) 0.9 L Amylase (30 - 110 U/L) 72 Lipase (23 - 300 U/L) 28 Hematology CBC w Diff MAN DIFF ORDERED WBC (4.8 - 10.8 /CUMM) 5.3 RBC (4.70 - 6.10 /CUMM) 4.69 L Hgb (14.0 - 18.0 G/DL) 11.9 L Hct (42 - 52 %) 37.3 L MCV (80.0 - 94.0 FL) 79.6 L MCH (27.0 - 31.0 PG) 25.5 L RDW (11.5 - 14.5 %) 19.5 H Plt Count (130 - 400 /CUMM) 281 MPV (7.4 - 10.4 FL) 11.1 H Gran % (42.2 - 75.2 %) 80.2 H Lymphocytes % (20.5 - 51.1 %) 10.6 L Monocytes % (1.7 - 9.3 %) 9.1 Eosinophils % (0 - 5 %) 0.1 Basophils % (0.0 - 2.0 %) 0 Absolute Granulocytes (1.4 - 6.5 /CUMM) 4.2 Segmented Neutrophils (42.2 - 75.2 %) 64 Band Neutrophils (0.0 - 5.0 %) 24 H Absolute Lymphocytes (1.2 - 3.4 /CUMM) 0.6 L Lymphocytes (20.5 - 51.1 %) 5 L Monocytes (1.7 - 9.3 %) 7 Absolute Monocytes (0.10 - 0.60 /CUMM) 0.5 Absolute Eosinophils (0.0 - 0.7 /CUMM) 0 Absolute Basophils (0.0 - 0.2 /CUMM) 0 Platelet Estimate (ADEQUATE) ADEQUATE Polychromasia Hypochromic-Microcytic 1+ Anisocytosis 1+ Microcytic Cells 1+ PUBS MCHC (33.0 - 37.0 G/DL) 32.0 L Miscellaneous Phlebotomy Draw Site RIGHT RADIAL Last 24 Hours of [place] Results: Ascitic fluid culture March 22 pending, with gram stain revealing moderate white blood cells and no organisms Diagnostic Data Recent Imaging Findings: Chest x-ray negative for any acute process. CT of the abdomen and pelvis revealed numerous liver and renal cysts, with a new hyperdense lesion in the right renal fossa; interval development of a large amount of abdominopelvic ascites. Assessment/Plan Assessment/Plan Impression: This is a 66-year-old man with a history of polycystic kidney and liver disease, hypertension and chronic kidney disease, with migration of a pleurx catheter, initially placed 8 months prior to admission for a recurrent right pleural transudative effusion, into the peritoneal cavity approximately 5 months prior to admission, with removal of 1 L of ascitic fluid weekly through the pleurx catheter since this migration, admitted on March 21 with the acute onset of nausea, vomiting, abdominal pain, diarrhea, fevers and chills, found to be afebrile with bandemia and with a markedly elevated white blood cell count in his ascitic fluid. His clinical picture is consistent with peritonitis, most likely secondary to the pleurx catheter, with no history of cirrhosis to suggest spontaneous bacterial peritonitis and no findings on his CT scan to suggest a secondary peritonitis. Unfortunately no blood cultures were obtained and the yield of a positive culture on the ascitic fluid is low; therefore his antibiotic regimen may need to remain empiric. A skin organism, such as staph or strep, is most likely but, given the chronicity of this catheter and frequent manipulation, feel that gram-negative coverage should also be continued. The catheter is presumably infected; therefore removal will likely be necessary to resolve this infection, and this is apparently planned for tomorrow. His worsening renal failure is likely multifactorial secondary to his vomiting, diarrhea and decreased oral intake prior to admission and sepsis. Suggestion: 1. Blood cultures 2 2. Follow-up ascitic fluid culture 3. Await removal of the pleurx catheter, planned for the a.m. 4. Discontinue Ceftriaxone 5. Begin Ceftazidime 1 g IV every 12 hours 6. Vancomycin random level in the a.m., with further dosing based on this level and his cultures Consult Acknowledgment - Thank you for your consult request.
[2017-03-22 16:00] VITALS: BP 100/70
--- NOTE | 2017-03-22 16:38 | Cons- Gastroenterology ---
General Information and HPI Consulting Request Date of Consult: 03/22/17 Requested By: Kary Grullon MD Reason for Consult: 1. Ascites 2. Polycystic Liver 3. Abdominal Pain 4. Diarrhea, Altered Bowel Habit Source of Information: patient, Electronic Medical Record Exam Limitations: poor historian History of Present Illness: Mr. Rich Tijerina is a 66-year-old white male with autosomal dominant polycystic kidney disease normally followed by Milton Duque MD. He was last seen by Dr. Duque in October of this year with a chief complaint of ascites and to rule out cirrhosis.. Mr. Tijerina was seen at [facility] 01/05/17 for evaluation for renal transplant given his PCKD, potentially liver transplant given polycystic liver. However, per Mr. Tijerina he was refused transplant because of his ascites. The patient was recently found to have a right pleural effusion in 06/2016, which was tapped, and was a benign transudate. On 07/14/16 a Right PleurX catheter was placed, which migrated into the abdominal cavity. A new PleurX catheter was placed in the right lung, after the first one had migrated but has been removed in February of 2017. The abdominal cathether is still being used for removal of approximately one liter of ascites weekly. In September of this year albumin was 4.2, globulin 2.6, TBil 0.5, alk phos 146, AST 15, and ALT 19. In October labs included: PT 13.8, INR 1.32, WBC 8.1, H/H 10.6 /33.1, MCV 78.9, RDW 19.5, PLT 183, BUN/Cr 56/2.7, K 5.0. At that time he had a paracentesis: SAAG 1.2, no cell count or diff or other studies were obtained. On admission He had WBC of 5.3, H/H of 11.9/37.3 with 281,000 platelets which after hydrateion dropped to 10.2/31.9. His BUN/Cr was 86/4.3 with a potassium of 5.6. His albumin was 2.8. Urine Na was 38. WBC in ascitic fluid was 8222. No other parameters were obtained (i.e. LDH, albumin, cytology, cell count and diff). Work up for underlying cirrhosis and other causes of liver disease other than polycystic liver is as follows: 02/17/05: Genetic testing HHC (H63D/C282Y)- negative. 02/20/05: MONICA- neg 1:40, anti-LKM Ab- neg, anti-smooth muscle Ab- neg, AMA < 0.1 ; Hep A Ab, Hep Bs Ag, Hep B core Ab, Hep Bs Ab & Hep C Ab- all neg; Fe 58, TIBC 401, Fe sat 14.5%, ferritin 119.3. Patient has had an endoscopic evaluation as follows: 08/01/91: EGD - mod to severe GERD, without Daley's. 07/19/01: Colonoscopy - benign TA. 02/22/06: Colonoscopy to cecum- tortuous redundant lumen due to PCKD, normal mucosa to cecum, w/o recurrent polyps (*not compliant with suggested colonoscopy advised for 02/2011). 11/21/07: EGD to D2- mod GERD w/o Daley's, Z line at 39 cm, sentinel fold gastric cardia- benign gastritis with IM, HP-neg, suggestion of extrinsic compression of stomach, w/o GOO. Mr. Tijerina now presents with acute onset of diffuse abdominal pain, vomiting, diarrhea and fever. He had acute onset of loose watery stools without visible blood. No one else at home was sick. He has not taken any antibiotics within the past several months. A CT Scan of the abdomen and pelvis was obtained, the results are as follows: FINDINGS: LUNG BASES: The previously seen right-sided pleural effusion has resolved. LIVER, GALLBLADDER, AND BILIARY TREE: There are innumerable cysts replacing the hepatic parenchyma with approximately stable burden of cysts compared with 02/27. For example a large cyst in the left hepatic lobe measures on the order of 13.4 cm, similar compared to prior. The gallbladder is not well seen. A percutaneously inserted catheter is seen along the right hepatic dome, stable in position compared with 10/14/2016. PANCREAS: Poorly defined due to mass effect from numerous hepatic and renal cysts. SPLEEN: Small in size measuring 6.8 cm, previously 9.5 cm. ADRENAL GLANDS: Not well defined. KIDNEYS AND URETERS: The kidneys have been essentially replaced by numerous cysts. A hyperdense lesion is seen in the right renal fossa, which may represent a proteinaceous or hemorrhagic cyst and measures 5.7 cm but is new compared to prior. There are scattered calcifications in both kidneys which may represent calcified cysts however nephrolithiasis cannot be excluded. BLADDER: Grossly normal. GASTROINTESTINAL TRACT: No evidence of bowel obstruction. The appendix is not well delineated. There has been interval development of large amount of ascites. The anterior abdominal wall is markedly protuberant. ABDOMINAL WALL: No focal hernia is seen. LYMPH NODES: No gross lymphadenopathy is seen. VASCULAR: Mild atheromatous changes along the abdominal aorta and its branches. PELVIC VISCERA: Prostate is mildly enlarged. OSSEOUS STRUCTURES: A chronic appearing fracture is seen along the left inferior pubic ramus. IMPRESSION: 1. Numerous cysts effectively replacing the normal hepatic and bilateral renal parenchyma, grossly similar compared to prior. There is a new hyperdense lesion in the right renal fossa which could represent a proteinaceous or hemorrhagic cyst however an underlying mass is not excluded. 2. Interval development of large amount of abdominopelvic ascites. 3. Stable position of a drainage catheter along the right hepatic dome. Allergies/Medications Allergies: Coded Allergies: NO KNOWN ALLERGIES (02/26/15) Home Med List: Furosemide 40 MG TABLET 1 TAB PO Tuesday WATER RETENTION (Reported) Hydrocodone/Acetaminophen ([place] 5-325 Tablet) 5 MG-325 MG TABLET 1-2 TAB PO Q4-6 PRN PRN PAIN Lisinopril (Prinivil) 20 MG TABLET 1 TAB PO DAILY HTN (Reported) Omeprazole 40 MG CAPSULE.DR 1 CAP PO DAILY GI (Reported) Verapamil HCl (Verapamil Sr) 180 MG CAP24H.PEL 1 TAB PO DAILY HTN (Reported) Past History Travel History Traveled to [place] past 21 day No Medical History Blood Transfusion Hx: No Neurological: Sciatica EENT: NONE Cardiovascular: hypertension, hyperlipidemia Respiratory: NONE Gastrointestinal: INGUINAL HERNIA Hepatic: POLYCYSTIC LIVER ASCITES PLEUREX CATH DRAIN TO R ABD Ascites Renal: POLYCYSTIC KIDNEY Musculoskeletal: NONE Psychiatric: NONE Endocrine: NONE Blood Disorders: NONE Cancer(s): BASAL CELL CARCINOMA DATA SCIENTIST/Reproductive: NONE Surgical History Surgical History: non-contributory Family History Relations & Conditions If Any: DAUGHTER (Postoperative have Polycystic kidney disease). SON ( has polycystic kidney disease). Relation not specified for: *No pertinent family history Psychosocial History Where Do You Live? Home Smoking Status: Never Smoked ETOH Use: denies use Illicit Drug Use: denies illicit drug use Functional Ability ADLs Independent: dressing, eating, toileting, bathing. Ambulation: independent IADLs Independent: shopping, housework, finances, food prep, telephone, transportation , medication admin. 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 EENTM: Denies: no symptoms. Cardiovascular: Denies: no symptoms. Respiratory: Reports: see HPI. GI: Reports: see HPI, abdominal pain, diarrhea. Genitourinary: Denies: no symptoms. Musculoskeletal: Denies: no symptoms. Skin: Denies: no symptoms. Neurological/Psychological: Denies: no symptoms. Hematologic/Endocrine: Denies: no symptoms. Exam & Diagnostic Data Vital Signs and I&O Vital Signs Date Time Temp Pulse Resp B/P B/P Pulse O2 O2 Flow FiO2 Mean Ox Delivery Rate 03/22 1600 99 Room Air Room Air 03/22 1600 100.2 114 28 100/70 99 Room Air Room Air 03/22 1200 98 Room Air Room Air 03/22 0800 97 Room Air Room Air 03/22 0800 99.4 109 28 100/64 97 Room Air Room Air 03/22 0400 98 Room Air 03/22 0000 98.3 94 18 90/60 96 Room Air 03/22 0000 99 Room Air 03/21 2225 98 Room Air 03/21 2225 98.3 102 20 94/68 98 Room Air 03/21 2202 101 18 98/71 97 Room Air 03/21 2142 98.3 102 18 86/59 97 Room Air 03/21 2050 96.3 100 18 101/68 96 Room Air 03/21 1903 99.1 100 20 98/63 97 Room Air 03/21 1730 97 Room Air Intake & Output 03/22 1600 03/22 0400 03/21 1600 03/21 0400 03/20 1600 03/20 0400 Intake Total 1936 Output Total 1050 Balance 886 Intake, Blood 200 Product Intake, IV 1436 Intake, Oral 300 Number 1 Bowel Movements Output, 1000 Drainage Output, Urine 50 Patient 159 lb 150 lb 150 lb Weight Physical Exam General Appearance: thin Head: temporal wasting Eyes: Bilateral: normal appearance. Ears, Nose, Throat: hearing grossly normal Neck: normal inspection, supple Respiratory: crackles, crackles at right base, dullness at bases bilaterally, hyperresonant Cardiovascular: regular rate/rhythm, Normal S1 and S2, no rubs, murmurs or gallops Gastrointestinal: normal bowel sounds, distention, there is marked tense ascites. There is a 4X4 in the RUQ at site of catehter. 4X4 is clean and dry. There is no umbilical hernia. There is mild diffuse tenderness, but no rebound or guarding. Back: normal inspection, normal range of motion Extremities: normal inspection, No Edema Neurologic/Psych: no motor/sensory deficits, awake, alert, oriented x 3 Cranial Nerves: cranial nerves II-XII grossly intact Skin: intact, warm/dry Results Pertinent Lab Results: Laboratory Tests 03/22 03/22 03/22 1700 1645 1615 Chemistry Sodium Pending Potassium Pending Chloride Pending Carbon Dioxide Pending Anion Gap Pending BUN Pending Creatinine Pending Glucose Pending Calcium Pending Phosphorus Pending Magnesium Pending Total Bilirubin Pending AST Pending ALT Pending Albumin Pending Coagulation PT (9.4 - 12.5 SEC) 15.3 H INR (0.90 - 1.17) 1.46 H APTT (25 - 37 SEC) 30 Hematology CBC w Diff MAN DIFF ORDERED WBC (4.8 - 10.8 /CUMM) Pending RBC (4.70 - 6.10 /CUMM) Pending Hgb (14.0 - 18.0 G/DL) Pending Hct (42 - 52 %) Pending MCV (80.0 - 94.0 FL) Pending MCH (27.0 - 31.0 PG) Pending RDW (11.5 - 14.5 %) Pending Plt Count (130 - 400 /CUMM) Pending MPV (7.4 - 10.4 FL) Pending Segmented Neutrophils (42.2 - 75.2 %) Pending PUBS MCHC (33.0 - 37.0 G/DL) Pending Other Body Source Fluid WBC Pending Fld Total RBCs Counted Pending 03/22 03/22 03/22 03/22 UNK 0400 0400 0345 Chemistry Lactic Acid (0.7 - 2.1 mmol/L) 1.7 Other Body Source Fluid Glucose Pending Fluid Total Protein Pending Fluid Albumin Pending Fluid LDH Pending Urines Urinalysis MOD H Urine Color (YEL,AMB,STR) YEL Urine Clarity (CLEAR) HAZY H Urine pH (5.0 - 8.0) 5.5 Ur Specific [place] (1.001 - 1.035) 1.025 Urine Protein (NEG,<30 MG/DL) 30 H Urine Ketones (NEG) NEG Urine Nitrite (NEG) NEG Urine Bilirubin (NEG) NEG Urine Urobilinogen (0.1 - 1.0 EU/dl) 0.2 Ur Leukocyte Esterase (NEG) NEG Ur Microscopic SEDIMENT EXAMINED Urine RBC (0 - 5 /HPF) RARE Urine WBC (0 - 2 /HPF) 1-3 H Ur Epithelial Cells (NONE,FEW) RARE Urine Hemoglobin (NEG) NEG Urine Osmolality (300 - 1000 MOSM/KG) 325 Ur Random Creatinine (mg/dL) 127.9 Ur Random Sodium (30 - 90 mmol/L) 38 Ur Random Potassium (mmol/L) 43.6 Fraction Sodium Excret (<1% %) 0.9 Urine Glucose (N MG/DL) NEG 03/22 03/22 03/21 0345 0145 2311 Chemistry Sodium (137 - 145 mmol/L) 139 Potassium (3.5 - 5.1 mmol/L) 5.6 H Chloride (98 - 107 mmol/L) 104 Carbon Dioxide (22 - 30 mmol/L) 17 L Anion Gap (5 - 16) 18 H BUN (9 - 20 mg/dL) 86 H Creatinine (0.7 - 1.2 mg/dL) 4.3 H Estimated GFR (>60 ml/min) 14 L Glucose (65 - 99 mg/dL) 71 Lactic Acid (0.7 - 2.1 mmol/L) 2.3 H Calcium (8.4 - 10.2 mg/dL) 7.9 L Phosphorus (2.5 - 4.5 mg/dL) 7.8 H Magnesium (1.6 - 2.3 mg/dL) 2.1 Total Bilirubin (0.2 - 1.3 mg/dL) 0.6 AST (17 - 59 U/L) 27 ALT (21 - 72 U/L) 31 Albumin (3.5 - 5.0 g/dL) 2.8 L Hematology CBC w Diff MAN DIFF ORDERED WBC (4.8 - 10.8 /CUMM) 7.5 RBC (4.70 - 6.10 /CUMM) 3.97 L Hgb (14.0 - 18.0 G/DL) 10.2 L Hct (42 - 52 %) 31.9 L MCV (80.0 - 94.0 FL) 80.5 MCH (27.0 - 31.0 PG) 25.8 L RDW (11.5 - 14.5 %) 19.6 H Plt Count (130 - 400 /CUMM) 224 MPV (7.4 - 10.4 FL) 10.6 H Segmented Neutrophils (42.2 - 75.2 %) 64 Band Neutrophils (0.0 - 5.0 %) 17 H Lymphocytes (20.5 - 51.1 %) 14 L Monocytes (1.7 - 9.3 %) 5 % Normal PMNs (%) 90 Platelet Estimate (ADEQUATE) ADEQUATE Hypochromic-Microcytic 1+ Poikilocytosis 2+ Anisocytosis 1+ PUBS MCHC (33.0 - 37.0 G/DL) 32.1 L Other Body Source Fluid WBC (0 - 5 /CUMM) 8222 H Fld Mesothelial Cells (%) 10 Fld Total RBCs Counted (0 /CUMM) 794 H 03/21 03/21 2115 1513 Blood Gas pH (7.35 - 7.45 PH) 7.32 L pCO2 (35 - 45 TORR) 29 L pO2 (80 - 100 TORR) 96 HCO3 (21 - 28 MEQ/L) 15 L ABG O2 Sat (Measured) (>96.0 %) 97.0 P-50 (Temp Corrected) N Carboxyhemoglobin (1.5 - 5.0 %) 0.4 L O2 Concentration % R/A Temperature (97.0 - 100.0 FARH) 97.3 Chemistry Sodium (137 - 145 mmol/L) 138 Potassium (3.5 - 5.1 mmol/L) 5.8 H Chloride (98 - 107 mmol/L) 104 Carbon Dioxide (22 - 30 mmol/L) 14 L Anion Gap (5 - 16) 19 H BUN (9 - 20 mg/dL) 81 H Creatinine (0.7 - 1.2 mg/dL) 4.3 H Estimated GFR (>60 ml/min) 14 L BUN/Creatinine Ratio (7 - 25 %) 18.8 Glucose (65 - 99 mg/dL) 90 Calcium (8.4 - 10.2 mg/dL) 8.6 Phosphorus (2.5 - 4.5 mg/dL) 7.8 H Magnesium (1.6 - 2.3 mg/dL) 1.2 L Total Bilirubin (0.2 - 1.3 mg/dL) 0.8 GGT (15 - 73 U/L) 203 H AST (17 - 59 U/L) 22 ALT (21 - 72 U/L) 24 Alkaline Phosphatase (< 127 U/L) 193 H Total Protein (6.3 - 8.2 g/dL) 6.2 L Albumin (3.5 - 5.0 g/dL) 3.0 L Globulin (1.9 - 4.2 gm/dL) 3.2 Albumin/Globulin Ratio (1.1 - 2.2 %) 0.9 L Amylase (30 - 110 U/L) 72 Lipase (23 - 300 U/L) 28 Hematology CBC w Diff MAN DIFF ORDERED WBC (4.8 - 10.8 /CUMM) 5.3 RBC (4.70 - 6.10 /CUMM) 4.69 L Hgb (14.0 - 18.0 G/DL) 11.9 L Hct (42 - 52 %) 37.3 L MCV (80.0 - 94.0 FL) 79.6 L MCH (27.0 - 31.0 PG) 25.5 L RDW (11.5 - 14.5 %) 19.5 H Plt Count (130 - 400 /CUMM) 281 MPV (7.4 - 10.4 FL) 11.1 H Gran % (42.2 - 75.2 %) 80.2 H Lymphocytes % (20.5 - 51.1 %) 10.6 L Monocytes % (1.7 - 9.3 %) 9.1 Eosinophils % (0 - 5 %) 0.1 Basophils % (0.0 - 2.0 %) 0 Absolute Granulocytes (1.4 - 6.5 /CUMM) 4.2 Segmented Neutrophils (42.2 - 75.2 %) 64 Band Neutrophils (0.0 - 5.0 %) 24 H Absolute Lymphocytes (1.2 - 3.4 /CUMM) 0.6 L Lymphocytes (20.5 - 51.1 %) 5 L Monocytes (1.7 - 9.3 %) 7 Absolute Monocytes (0.10 - 0.60 /CUMM) 0.5 Absolute Eosinophils (0.0 - 0.7 /CUMM) 0 Absolute Basophils (0.0 - 0.2 /CUMM) 0 Platelet Estimate (ADEQUATE) ADEQUATE Polychromasia Hypochromic-Microcytic 1+ Anisocytosis 1+ Microcytic Cells 1+ PUBS MCHC (33.0 - 37.0 G/DL) 32.0 L Miscellaneous Phlebotomy Draw Site RIGHT RADIAL Assessment/Plan Assessment/Recommendations: IMPRESSION: 1. N/V/Abdominal Pain, Diarrhea, Fever -- viral vs. bacterial enteritis 2. Acute Kidney Injury -- most likely ATN given dehydration in the setting of diarrhea and fever. Pt has been getting albumin and IV fluids and has put out over 100 cc urine further urine Na is high arguing against hepatorenal syndrome 3. Ascites -- elevated WBC count. ? SBP 4. Polycystic Liver 6. Polycystic Kidney RECOMMENDATIONS 1. Repeat diagnostic paracentesis for cell count and differential, LDH, total protein, and cytology. 2. Would check alpha-fetoprotein 3. Would obtain records from [facility] regarding renal transplant evaluation. Believe patient should be evaluated for both liver kidney transplant. We'll consider transfer to [place] for both liver kidney transplant evaluation. 4. Stool for O and P, C and S, C. difficile toxin 5. Strict I/O 6. Remove catheter as this is a nidus for infection 7. Repeat BUN/Cr, Na, K, CBC given IV fluids and to follow progress 8. Continue albumin Consult Acknowledgment - Thank you for your consult request.
[2017-03-22 17:12] LABS: HEMATOCRIT 31.9 % (42-52); MEAN CORPUSCULAR HGB 25.1 PG (27.0-31.0); MEAN CORPUSCULAR HGB CONC 31.5 G/DL (33.0-37.0); MEAN CORPUSCULAR VOLUME 79.7 FL (80.0-94.0); MEAN PLATELET VOLUME 9.5 FL (7.4-10.4); PLATELET COUNT 195 /CUMM (130-400); RBC DISTRIBUTION WIDTH 20.5 % (11.5-14.5); WHITE BLOOD CELL COUNT 7.5 /CUMM (4.8-10.8)
[2017-03-22 17:34] LABS: PT 15.3 SEC (9.4-12.5); PTT 30 SEC (25-37)
[2017-03-23] VITALS: BP 96/68
[2017-03-23 05:04] LABS: HEMATOCRIT 29.9 % (42-52); MEAN CORPUSCULAR HGB 25.4 PG (27.0-31.0); MEAN CORPUSCULAR VOLUME 79.1 FL (80.0-94.0); MEAN PLATELET VOLUME 10.5 FL (7.4-10.4); PLATELET COUNT 187 /CUMM (130-400); RBC DISTRIBUTION WIDTH 19.7 % (11.5-14.5); RED BLOOD CELL CT 3.78 /CUMM (4.70-6.10); WHITE BLOOD CELL COUNT 8.3 /CUMM (4.8-10.8)
--- NOTE | 2017-03-23 07:30 | PN- Housestaff ---
Subjective Follow-up For: Ascites with SBP vs Catheter-associated Peritonitis SHELBY on CKD Hyperkalemia Subjective: Patient visited today, ill looking gentleman, was lying in bed comfortably in no acute distress, was alert and oriented. No fever or chills, no shortness of breathing, no chest pain, no other events. Cr increased slightly, most likely related to sepsis. He culture grow GNR, verbal communication with Dr Castillo most likely pseudomembranous , vancomycin was stopped due to renal function. We will continue ceftaz. Is planned for cath removal today with Dr Carson. Review of Systems Constitutional: Reports: see HPI. Objective Last 24 Hrs of Vital Signs/I&O Vital Signs Date Time Temp Pulse Resp B/P B/P Pulse O2 O2 Flow FiO2 Mean Ox Delivery Rate 03/23 799 95 Room Air Room Air 03/23 08 98.4 96 20 98/77 95 Room Air Room Air 03/23 0119 98.8 03/23 0020 101.2 03/23 0000 101.2 110 26 96/68 96 Room Air 03/22 1600 99 Room Air Room Air 03/22 1600 100.2 114 28 100/70 99 Room Air Room Air Intake & Output 03/23 1600 03/23 0800 03/23 0000 Intake Total 412 1149 Output Total 150 Balance 262 1149 Intake, IV 412 669 Intake, Oral 480 Output, Urine 150 Patient 163 lb 164 lb Weight Weight Bed scale Measurement Method Physical Exam General Appearance: Alert, Oriented X3, Cooperative, No Acute Distress, ill looking Skin Temp/Moisture Exam: Warm/Dry Sepsis Skin Exam (color): Normal for Ethnicity HEENT: Atraumatic, Mucous Membr. moist/pink Cardiovascular: Regular Rate, Normal S1, Normal S2 Lungs: Clear to Auscultation Abdomen: abdominal distention, mild tenderness no change compared to yesterday Neurological: grossly normal Extremities: trance - +1 edema bilateral leg Current Medications: Current Medications Sig/Lola Start time Last Medication Dose Route Stop Time Status Admin Acetaminophen 325 MG .STK-MED ONE 03/23 0015 DC PO 03/23 0016 Acetaminophen 325 MG Q4P PRN 03/21 2115 AC 03/23 PO 0020 Albumin Human 25 GM Q8 03/23 1400 AC IV 03/24 0601 Albumin Human 25 GM Q8 03/21 2236 DC 03/22 IV 03/22 1401 1512 Ceftazidime 1,000 MG Q12H 03/23 0830 AC 03/23 IV 0820 Ceftazidime 1,000 MG Q12H 03/22 1800 DC 03/22 IV 2035 Ceftriaxone Sodium 1,000 MG DAILY 03/23 1000 CAN IV Hydrocodone Bitart/ 1 TAB Q6P PRN 03/21 2100 AC Acetaminophen PO Magnesium Oxide 400 MG BID 03/22 2200 CAN PO 03/25 1001 Magnesium Sulfate 1 GM Q2H 03/22 1830 DC 03/22 Dextrose/Water 100 ML IV 03/22 2229 2035 Metoclopramide HCl 10 MG Q6P PRN 03/21 2315 AC 03/22 IV 0652 Morphine Sulfate 2 MG Q4P PRN 03/21 2100 AC 03/23 IV 0603 Nitroglycerin 0.4 MG ONCE ONE 03/22 2100 CAN SL 03/22 2101 Sodium Chloride 1,000 ML Q20H 03/21 2245 DC 03/22 IV 03/22 1844 0935 Vancomycin HCl 1,000 MG ONCE ONE 03/22 1200 DC 03/22 Sodium Chloride 250 ML IV 03/22 1259 1308 Last 24 Hrs of Lab/Clarke Results Last 24 Hrs of Labs/Mics: Laboratory Tests 03/23/17 0430: Anion Gap 19 H, Estimated GFR 13 L, Glucose 90, Calcium 7.7 L, Phosphorus 7.9 H, Magnesium 2.3, Total Bilirubin 0.5, AST 27, ALT 42, Albumin 2.8 L, CBC w Diff MAN DIFF ORDERED, RBC 3.78 L, MCV 79.1 L, MCH 25.4 L, RDW 19.7 H, MPV 10.5 H, Segmented Neutrophils 92 H, Band Neutrophils 1, Lymphocytes 4 L, Monocytes 2, Metamyelocytes 1, Platelet Estimate ADEQUATE, Hypochromic- Microcytic 1+, Microcytic Cells 1+, Target Cells RARE, Ahsan Cells 1+, Elliptocytes FEW, PUBS MCHC 32.0 L, Random Vancomycin 9.2 03/22/172048: Troponin I Cancelled 03/22/17 1700: Anion Gap 19 H, Estimated GFR 13 L, Glucose 92, Calcium 7.7 L, Phosphorus 7.5 H, Magnesium 1.8, Total Bilirubin 0.5, AST 27, ALT 34, Albumin 3.3 L, CBC w Diff MAN DIFF ORDERED, RBC 4.00 L, MCV 79.7 L, MCH 25.1 L, RDW 20.5 H, MPV 9.5, Segmented Neutrophils 79 H, Band Neutrophils 10 H, Lymphocytes 6 L, Monocytes 4, Eosinophils 1, Platelet Estimate ADEQUATE, Polychromasia 1+, Hypochromic-Microcytic 1+, Poikilocytosis 1+, Anisocytosis 1+, PUBS MCHC 31.5 L 03/22/17 1645: PT 15.3 H, INR 1.46 H, APTT 30 03/22/17 1615: Lymphocytes 1, % Normal PMNs 91, Misc Hematology Test , Fluid WBC 4250 H, Fld Total RBCs Counted 475 H 03/22/17 1533: Fluid Total Protein Cancelled Microbiology 03/22 180 STOOL: Cryptosporidium Antigen - COLB 03/22 180 STOOL: Giardia Antigen (CLARKE) - COLB 03/22 180 STOOL: Clostridium difficile Toxin A & B - COLB 03/22 1650 BLOOD: Blood Culture - RES 03/22 1646 STOOL: Stool Culture - COLB 03/22 1645 BLOOD: Blood Culture - RES 03/22 1630 URINE ROUT: Urine Culture - RES Assessment/Plan Assessment: Mr. Tijerina is a 66 yo m with a PMH of PKD, Polycystic liver disease, portal HTN , HTN, HLD, umbilical hernia repair, colon ademona, GERD who presented to the ED with NVD with progressively worsened abdominal distention from ascitic fluid. Ascites with SBP vs Catheter-associated Peritonitis Patient had an indwelling pleural catheter placed in July 2016 for pleural effusion that migrated into the abdominal cavity. Considering that the patient's catheter was never removed it can be a possible source of infection. He had another catheter placed in the R lung that was eventually removed. CT abdomen/ pelvis on admission demonstrated the resolution of his R-side pleural effusion. He gets 1L of ascitic fluid drained from the migrated Pleurx catheter on MW. Prior to coming to the hospital it was last drained on Tuesday by his visiting nurse. He had a diagnostic and therapeutic paracentesis performed overnight. His ascitic fluid white count was 8222. * ID recommendations appreciated * GI recommendations appreciated * Continue ceftaz * Continue Metoclopramide for nausea * Hold Vancomycin * Vancomycin level in a.m. done * Removal of indwelling catheter in a.m by Dr. Carson today * follow post op care * Repeat paracentesis for fluid analysis with total protein * Follow up ascitic fluid culture results for identification of the pathogen and sensitivity results SHELBY on CKD most likely 2/2 dehydration in the setting of his CKD from PKD Patient is reported to have a baseline of 2-3. His Cr is now 4.3. He was given 2L of IVF and is currently on an albumin infusion. * Monitor renal function * Continue IV Albumin 25 gm q8 * Continue NS IVF History of PKD, Polycystic liver disease Patient reported he had an appt at [facility] in which he was told he wouldn't receive a transplant until the resolution of his ascitic fluid. CT abd/pel demonstrated numerous cysts effectively replacing the normal hepatic and bilateral renal parenchyma * ECHO to r/o SHD or valvular abnormalities Hyperkalemia * Monitor potassium * Start 2g potassium restriction in diet DVT ppx: ALPS Problem List: 1. Polycystic kidney disease 2. Renal insufficiency Pain Ratin Pain Location: None Pain Goal: Pain 4 or less Pain Plan: Continue current plan Tomorrow's Labs & Rationales: CBC ICU bundle
[2017-03-23 08:00] VITALS: BP 98/77
--- NOTE | 2017-03-23 08:11 | PN- Gastroenterology ---
Assessment/Plan Assessment/Recommendations: (*Covering GI consult per Dr. Springer of 03/22/17 reviewed, along with extensive past records). 66 y/o male, HTN, non-DM, HLD, anxiety, resection BC Ca (face), B/L IH repair, umbilical hernia repair, history of renal stones (? type), remote history of colon adenoma- removed 07/19/01, chronic GERD- dependent on Omeprazole 40 mg daily x years, & PCKD. There is no family history of GI malignancy, IBD, or inherited liver disease. Positive family history of PCKD (all 3 children- 1 son & 2 dtrs). History of colon adenoma & chronic microcytic anemia. He is followed by Dr. Hearn fo renal, Dr. Lehman for primary care, Dr. Hearn for nephrology, Dr. Moreland for pulmonary, Dr. Carson for cardiothoracic surgery, & Dr. Link for cardiology. *Additionally, he saw the [facility] for evaluation of his PCKD, regarding his kidneys & potentially his liver. The transplant notes did not make mention of his liver, and he was declined for a renal transplant, for unknown reasons. His Cr had worsened, peaking at 3.1 earlier in 2017, stabilizing in the upper 2's. The patient was recently found to have a right pleural effusion in 06/2016, which was tapped, revealing a benign transudate. He reportedly had a normal echocardiogram at Dr. Link in 06/2016. 07/12/16: CT chest without contrast- moderate to large right pleural effusion with left shift of the mediastinum, no infiltrate, no suspicious pulmonary nodules. 07/14/16: Right PleurX catheter placed, which migrated into the abdominal cavity. A new PleurX catheter was placed in the right lung, after the first one had migrated, but both remain. Apparently, the abdominal catheter is capped. The previously had 1L fluid drained from the right lung M, W, F with IV SPA infusion, as occasionally he dropped his blood pressure with this. The right pleural catheter was pulled, and he was getting 1 L of ascites removed from his indwelling abdominal catheter each week. 10/01/16: albumin 4.2, globulin 2.6, TBil 0.5, alk phos 146, AST 15, ALT 19 10/21/16: PT 13.8, INR 1.32 10/28/16: WBC 8.1, H/H 10.6/33.1, MCV 78.9, RDW 19.5, PLT 183, BUN/Cr 56/2.7, GFR 24, Na 144, K 5.0, HCO3 20, AG 16 11/05/16: Ascitic tap- elevated SAAG 1.2 (serum albumin 3.5, BF albumin 2.3), but no BF protein sent, nor cell count, gram stain, culture, or cytology. *Please note, the patient's alk phos has fluctuated back to 2004. 10/05/10: +GGT 319. 02/17/05: Genetic testing HHC (H63D/C282Y)- negative. 02/20/05: MONICA- neg 1:40, anti-LKM Ab- neg, anti-smooth muscle Ab- neg, AMA < 0.1 ; Hep A Ab, Hep Bs Ag, Hep B core Ab, Hep Bs Ab & Hep C Ab- all neg; Fe 58, TIBC 401, Fe sat 14.5%, ferritin 119.3. The patient denied any pruritus, jaundice, dark urine, light stool, confusion, or peripheral edema. His abdominal girth was stable. He denied any blood transfusions, needle sticks, tattoos, risk factors for HIV, or IVDA. the patient 's anemia was somewhat chronic. He denied any history of beta thalassemia. He denied any aspirin or NSAID use. He denied any chest pain or shortness of breath. He admitted to mild dyspnea on exertion, related to his right pleural effusion. He denied any hemoptysis, fevers, or chills. He had chronic GERD, stable yet dependent on Omeprazole 40 mg daily. He denied any odynophagia, dysphagia, early satiety, hematemesis, or melena. He noted mild bloating & discomfort, related to the PCKD and ascites, but no significant abdominal pain. He had some mild weight loss since having his right pleural effusion drained repeatedly. 08/01/91: EGD (purged)- mod to severe GERD, without Daley's. 07/19/01: Colonoscopy (purged)- benign TA. 02/22/06: Colonoscopy to cecum- tortuous redundant lumen due to PCKD, normal mucosa to cecum, w/o recurrent polyps (*not compliant with suggested colonoscopy advised for 02/2011). 11/21/07: EGD to D2- mod GERD w/o Daley's, Z line at 39 cm, sentinel fold gastric cardia- benign gastritis with IM, HP-neg, suggestion of extrinsic compression of stomach, w/o GOO. The patient's recurrent right pleural effusion probably was related to his ascites, and is a hepatic hydrothorax, with ascitic fluid traversing the right hemidiaphragm. 02/27/15: CT AP without contrast- moderate ascites, although I did not see any more recent imaging studies of the abdomen. Although it is unusual, he may have progression of PCKD, with overwhelming hepatic cysts replacing his hepatic parenchyma, causing cirrhosis. Other entities to consider would be chronic viral hepatitis, rule out autoimmune hepatitis, rule out PBC ( fluctuating alk phos x years, with +GGT), rule out overload state. Having stated that, he did not have reversal of albumin:globulin ratio (albeit, on IV SPA periodically), nor thrombocytopenia. Additionally, his INR was only borderline elevated. He reportedly had a stable echocardiogram in 06/2016, without any elevated right heart pressures. He remained with 2 PleurX catheters- 1 in the right pleural space, with the initial one now in his abdominal cavity & capped. His 11/05/16: ascitic fluid showed elevated SAAG 1.2, but there was no concurrent BF protein sent (would expect BF protein < 2.0 in conjunction with elevated SAAG > 1.1, if the ascites were from portal HTN). I previously advised that the patient contact Dr. Hearn, to set up a repeat ascitic fluid tap via the migrated right PleurX catheter, to check a cell count, Gram stain, culture, cytology, BF protein, BF albumin & simultaneous serum albumin, to repeat a SAAG (expect high SAAG, low BF protein, if ascites is from portal HTN). A FibroScan would be difficult to interpret with the large amounts of hepatic cysts. I will defer repeating a noncontrast CT of the abdomen for now , as it will be a limited study, in view of his GFR. The patient saw the [facility] for initial evaluation 01/05/17, regarding his PCKD. I think it would be helpful to know whether the patient truly has cirrhosis prior to this. Therefore, my office wset up a transjugular liver biopsy with HV wedge pressure at [facility], prior to his transplant evaluation. As the patient remotely had colon adenomas removed , & last had a clean (albeit tortuous) colonoscopy 02/22/06, I advised a repeat colonoscopy with a pediatric colonoscope after TriLyte (low GFR). He was overdue for a follow-up colonoscopy, advised for 02/2011. The [facility] will want his colonic mucosa cleared of any lesions. The risks and benefits of colonoscopy were discussed with the patient, and he wished to proceed. He realized that he is at higher than average risk for this, in view of his PCKD causing extrinsic compression. I will try to coordinate an abdominal tap prior to the colonoscopy, to help decrease his intra-abdominal pressures. A variety of antireflux measures were discussed with the patient. His Omeprazole 40 mg daily will be continued for now. I advised a follow-up GI visit here in 02/2017, about a month after he is evaluated by the [facility]. At that point, I will consider a repeat EGD in view of his chronic GERD, as well as to exclude potential varices, if the above workup is suggestive of cirrhosis. Additionally, I would consider a small bowel biopsy and perhaps a celiac panel then, if there was evidence of iron deficiency on the blood work. Mr. Tijerina preferred not to have his EGD done simultaneously with his colonoscopy, as he felt it would be too much to go through at one time, keeping in mind his advanced PCKD. Further recommendations will follow, depending on clinical course. 12/01/16: *I spoke with [facility], Dr. Omar Tipton. Liver bx could not be done , as extensive cystic disease. RA 1 mm Hg, HV 4 mm HG, HVWPG 17 mm Hg, suggestive of possible post-sinusoidal obstruction (not sinusoidal), possibly from extensive PCKD. 1) Please get MRI liver (cannot give contrast with low GFR)-> not done. 2) Advise liver consult at [facility] (see if they want to do MRI there) 12/13/16: *PT 12.5, INR 1.19, WBC 8.3, chronic H/H 111.1/34.8, MCV 80.8, RDW 19.2, PLT 263, MONICA- neg 1:40, glu 112, BUN/Cr 56/3.0 (chronic), GFR 21, HCO3 21, AG 11, alb 3.0, glob 3.2, TBil 0.3, alk phos 189, AST 17, ALT 17, HAVM- neg, Hep Bs Ag- neg, Hep Bs Ab- neg, + Hep C Ab, Fe 19, TIBC 232 (chronic disease), ferritin 90.7. AMA < 20, MONICA- neg 1:40, anti-LKM < 20, anti-smooth muscle Ab < 20, *nl AFP 1.5, elev A1AT 314 (not low), nl Hgb electrophoresis phenotype 12/14/16: *HCV RNA RT IU/mL < 15- not detected, HCV RNA LOGIU/mL < 1.18- not detected, HCV genotype- not detected. 12/14/16: *Colonoscopy to cecum- 1. Several sessile diminutive polyps, all completely removed via cold biopsies: (Specimen A- 5 mm proximal right colon polyp, NBI positive. Specimen B- 4 mm transverse colon polyp, NBI positive. Specimen C- 3 mm rectal polyp at 10 cm, NBI negative). 2. Moderate left-sided diverticula. 3. Moderate internal hemorrhoids, without active bleeding. 4. Extensive PCKD, with extrinsic compression and tortuous lumen. I called the pt 12/16/16 p.m. regarding the benign diminuitive sessile polyps (5 mm proximal right colon benign TA, 4 mm normal tissue in transverse colon without true polyp, 3 mm rectal polyp at 10 cm- benign hyperplastic). As the tiny polyps were benign, I advised a follow-up surveillance colonoscopy with the *pediatric colonoscope and a 1 gallon prep in 5 years (i.e.- 12/2021), keeping in mind the past personal history of colon adenoma. [*If he gets a transplant & is put on immunosuppressants, I might consider shortening the interval of follow-up colonoscopy to 3 years]. Add high-fiber diet plus FiberCon 2 tabs daily. Local care as needed, regarding internal hemorrhoids. Consideration for MRI liver at [facility], but cannot give gadolinium with low GFR. To summarize, Mr. 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 He is waiting for his indwelling abdominal catheter to be removed in the OR later on 03/23/17. He had been seen by numerous consultants, including renal and ID. He remained on broad-spectrum antibiotics, including IV Vancomycin & IV Fortaz 1g Q12h (IV Ceftriaxone D/C for better gram negative coverage). 03/22/17: Ascitic fluid- *4250 WBC (*91P/1L/10Meso), 475 RBC, high SAAG, *high protein. The patient has post-obstructive portal hypertension, but uncertain if he has cirrhosis. Previous AFP- WNL. SUGGEST- Continue broad-spectrum antibiotics with IV Vancomycin & Fortaz. Follow-up cultures. Await pulling of intra-abdominal catheter, per CTS. Follow-up with ID and renal. IV SPA 25g Q8h. Agree with checking ascitic cytology for completeness. Maintain in ICU. Check I's and O's. If diarrhea recurs, send stool workup. Follow-up electrolytes, GFR, CBC. Avoid nephrotoxins and hepatotoxins. Once infection clears, reevaluation for both renal and hepatic transplant, either at [facility] or again, by [facility]. Reglan as needed ( watch for EPS side effects). May resume PPI if needed (hx GERD). Diuretics on hold. Await echocardiogram. Consideration for outpt EGD (varices, possible small bowel biopsy with history of iron deficiency). Repeat colonoscopy with pedicolon x 5 years (i.e.- 12/2021), post 1 gallon prep. [*If he gets a transplant & is put on immunosuppressants, I might consider shortening the interval of follow-up colonoscopy to 3 years]. The case was discussed with the patient's , Xochitl, at the bedside, as per his request. The case was previously discussed with the medical housestaff. Further GI recommendations to follow, depending on clinical course. 1/2 hour of ICU care was spent on the patient. Problem List: 1. Peritonitis 2. Polycystic kidney disease 3. Polycystic liver disease 4. Portal hypertension 5. Acute on chronic renal failure 6. Hyperkalemia 7. Ascites 8. Hydrothorax Subjective Subjective: (*Covering GI consult per Dr. Springer of 03/22/17 reviewed, along with extensive past records). *As of 03/23/17, the patient remained with low-normal BP and mildly tachycardic. O2 sat RA 96%. He was defervescing (T 98.8) with Tm 101.2, on broad spectrum antibiotics, currently on IV Vancomycin and Fortaz. His abdominal pain was improving. He denied any chills, confusion, nausea, vomiting, change in bowel habits, overt GI bleeding, melena, jaundice, CP or SOB. He tolerated a renal diet 03/22/17 & was currently NPO, awaiting pulling of his indwelling abdominal catheter in the OR, which most likely is the source of his peritonitis. The patient was examined in the presence of his , Nelli, at the bedside in the ICU. Review of Systems: Full 14 point review of systems otherwise noncontributory, and as above. Constitutional: Reports: see HPI. EENTM: Denies: no symptoms. Cardiovascular: Denies: no symptoms. Respiratory: Reports: see HPI. GI: Reports: see HPI, abdominal pain- improving Genitourinary: Denies: no symptoms. Musculoskeletal: Denies: no symptoms. Skin: Denies: no symptoms. Neurological/Psychological: Denies: no symptoms. Hematologic/Endocrine: Denies: no symptoms. Objective Vital Signs and I&Os Vital Signs Date Time Temp Pulse Resp B/P B/P Pulse O2 O2 Flow FiO2 Mean Ox Delivery Rate 03/23 0119 98.8 03/23 0020 101.2 03/23 0000 101.2 110 26 96/68 96 Room Air 03/22 1600 99 Room Air Room Air 03/22 1600 100.2 114 28 100/70 99 Room Air Room Air 03/22 1200 98 Room Air Room Air Intake & Output 03/23 1600 03/23 0400 03/22 1600 03/22 0400 03/21 1600 03/21 0400 Intake Total 412 1149 1936 Output Total 150 1050 Balance 262 1149 886 Intake, Blood 200 Product Intake, IV 778 449 9579 Intake, Oral 480 300 Number 1 Bowel Movements Output, 1000 Drainage Output, Urine 150 50 Patient 159 lb 150 lb 150 lb Weight Physical Exam: Well-developed, slightly malnourished, chronically ill appearing male, in no apparent distress. Sclera anicteric. Conjunctiva pink. Oropharynx clear. No oral thrush. No aphthous ulcers. There is no adenopathy, thyromegaly, JVD, or HJR. No peripheral stigmata of inflammatory bowel disease on exam. No spiders on the anterior chest wall. No gynecomastia. No CVA tenderness. Lungs: clear to A&P, with decreased BS 1/3 up at right base. No wheezing, rales, or rhonchi. PleurX catheter, right anterior chest wall, near lower right rib cage. Heart exam: mildly tachycardic regular rate rhythm, S1 S2, without any murmur, rub or gallop. Abdominal exam: normal bowel sounds, distended belly, nontender, without guarding or rebound. Enlarged cystic liver, > 22 cm by percussion, with edge > 6 FBBRCM, crossing the midline. No mass. Difficult to tell if there is splenomegaly, due to PCKD. Positive fluid shift with abdominal striae & tense ascites. No pulsatile mass. No epigastric bruit. Digital rectal exam: deferred by patient (done at 12/14/16: colonoscopy). Extremities: without C, C, or E. No palpable cords. Mild DJD. No rash. No palmar erythema. No Dupuytren's contractures. Distal pulses 2+ bilaterally. DTRs 2+ bilaterally. Alert and oriented x 3. Right handed. No tremor. No asterixis. No cogwheeling or EPS signs. Motor 5/5 B/L. A detailed exam for peripheral neuropathy was deferred. Current Medications: Current Medications Sig/Lola Start time Last Medication Dose Route Stop Time Status Admin Acetaminophen 325 MG .STK-MED ONE 03/23 0015 DC PO 03/23 0016 Acetaminophen 325 MG Q4P PRN 03/21 2115 03/23 PO 0020 Albumin Human 25 GM Q8 03/21 2236 DC 03/22 IV 03/22 1401 1512 Ceftazidime 1,000 MG Q12H 03/23 0830 AC 03/23 IV 0820 Ceftazidime 1,000 MG Q12H 03/22 1800 DC 03/22 IV 2035 Ceftriaxone Sodium 1,000 MG DAILY 03/23 1000 CAN IV Ceftriaxone Sodium 1,000 MG DAILY 03/22 1000 DC 03/22 IV 0943 Hydrocodone Bitart/ 1 TAB Q6P PRN 03/21 2100 AC Acetaminophen PO Magnesium Oxide 400 MG BID 03/22 2200 CAN PO 03/25 1001 Magnesium Sulfate 1 GM Q2H 03/22 1830 DC 03/22 Dextrose/Water 100 ML IV 03/22 2229 2035 Metoclopramide HCl 10 MG Q6P PRN 03/21 2315 AC 03/22 IV 0652 Morphine Sulfate 2 MG Q4P PRN 03/21 2100 AC 03/23 IV 0603 Nitroglycerin 0.4 MG ONCE ONE 03/22 2100 CAN SL 03/22 2101 Sodium Chloride 1,000 ML Q20H 03/21 2245 DC 03/22 IV 03/22 1844 0935 Vancomycin HCl 1,000 MG ONCE ONE 03/22 1200 DC 03/22 Sodium Chloride 250 ML IV 03/22 1259 1308 Results Pertinent Lab Results: Laboratory Tests 03/239 Chemistry Sodium (137 - 145 mmol/L) 136 L Potassium (3.5 - 5.1 mmol/L) 5.0 Chloride (98 - 107 mmol/L) 104 Carbon Dioxide (22 - 30 mmol/L) 13 L Anion Gap (5 - 16) 19 H BUN (9 - 20 mg/dL) 92 H Creatinine (0.7 - 1.2 mg/dL) 4.6 H Estimated GFR (>60 ml/min) 13 L Glucose (65 - 99 mg/dL) 90 Calcium (8.4 - 10.2 mg/dL) 7.7 L Phosphorus (2.5 - 4.5 mg/dL) 7.9 H Magnesium (1.6 - 2.3 mg/dL) 2.3 Total Bilirubin (0.2 - 1.3 mg/dL) 0.5 AST (17 - 59 U/L) 27 ALT (21 - 72 U/L) 42 Troponin I Cancelled Albumin (3.5 - 5.0 g/dL) 2.8 L Hematology CBC w Diff MAN DIFF ORDERED WBC (4.8 - 10.8 /CUMM) 8.3 RBC (4.70 - 6.10 /CUMM) 3.78 L Hgb (14.0 - 18.0 G/DL) 9.6 L Hct (42 - 52 %) 29.9 L MCV (80.0 - 94.0 FL) 79.1 L MCH (27.0 - 31.0 PG) 25.4 L RDW (11.5 - 14.5 %) 19.7 H Plt Count (130 - 400 /CUMM) 187 MPV (7.4 - 10.4 FL) 10.5 H Segmented Neutrophils (42.2 - 75.2 %) 92 H Band Neutrophils (0.0 - 5.0 %) 1 Lymphocytes (20.5 - 51.1 %) 4 L Monocytes (1.7 - 9.3 %) 2 Metamyelocytes (0.0 - 1.0 %) 1 Platelet Estimate (ADEQUATE) ADEQUATE Hypochromic-Microcytic 1+ Microcytic Cells 1+ Target Cells RARE [place] Cells 1+ Elliptocytes FEW PUBS MCHC (33.0 - 37.0 G/DL) 32.0 L Toxicology Random Vancomycin (ug/ml) 9.2 03/22 03/22 03/22 1700 1645 1615 Chemistry Sodium (137 - 145 mmol/L) 138 Potassium (3.5 - 5.1 mmol/L) 5.1 Chloride (98 - 107 mmol/L) 102 Carbon Dioxide (22 - 30 mmol/L) 17 L Anion Gap (5 - 16) 19 H BUN (9 - 20 mg/dL) 90 H Creatinine (0.7 - 1.2 mg/dL) 4.4 H Estimated GFR (>60 ml/min) 13 L Glucose (65 - 99 mg/dL) 92 Calcium (8.4 - 10.2 mg/dL) 7.7 L Phosphorus (2.5 - 4.5 mg/dL) 7.5 H Magnesium (1.6 - 2.3 mg/dL) 1.8 Total Bilirubin (0.2 - 1.3 mg/dL) 0.5 AST (17 - 59 U/L) 27 ALT (21 - 72 U/L) 34 Albumin (3.5 - 5.0 g/dL) 3.3 L Coagulation PT (9.4 - 12.5 SEC) 15.3 H INR (0.90 - 1.17) 1.46 H APTT (25 - 37 SEC) 30 Hematology CBC w Diff MAN DIFF ORDERED WBC (4.8 - 10.8 /CUMM) 7.5 RBC (4.70 - 6.10 /CUMM) 4.00 L Hgb (14.0 - 18.0 G/DL) 10.1 L Hct (42 - 52 %) 31.9 L MCV (80.0 - 94.0 FL) 79.7 L MCH (27.0 - 31.0 PG) 25.1 L RDW (11.5 - 14.5 %) 20.5 H Plt Count (130 - 400 /CUMM) 195 MPV (7.4 - 10.4 FL) 9.5 Segmented Neutrophils (42.2 - 75.2 %) 79 H Band Neutrophils (0.0 - 5.0 %) 10 H Lymphocytes (20.5 - 51.1 %) 6 L 1 Monocytes (1.7 - 9.3 %) 4 Eosinophils (0 - 5.0 %) 1 % Normal PMNs (%) 91 Platelet Estimate (ADEQUATE) ADEQUATE Polychromasia 1+ Hypochromic-Microcytic 1+ Poikilocytosis 1+ Anisocytosis 1+ PUBS MCHC (33.0 - 37.0 G/DL) 31.5 L Misc Hematology Test (%) Other Body Source Fluid WBC (0 - 5 /CUMM) 4250 H Fld Total RBCs Counted (0 /CUMM) 475 H 03/22 03/22 03/22 1533 UNK 0400 Other Body Source Fluid Glucose (mg/dL) 78 Fluid Total Protein (g/dL) Cancelled 3.8 Fluid Albumin (g/dL) 1.8 Fluid LDH (U/L) 578 Urines Urinalysis MOD H Urine Color (YEL,AMB,STR) YEL Urine Clarity (CLEAR) HAZY H Urine pH (5.0 - 8.0) 5.5 Ur Specific Baxter (1.001 - 1.035) 1.025 Urine Protein (NEG,<30 MG/DL) 30 H Urine Ketones (NEG) NEG Urine Nitrite (NEG) NEG Urine Bilirubin (NEG) NEG Urine Urobilinogen (0.1 - 1.0 EU/dl) 0.2 Ur Leukocyte Esterase (NEG) NEG Ur Microscopic SEDIMENT EXAMINED Urine RBC (0 - 5 /HPF) RARE Urine WBC (0 - 2 /HPF) 1-3 H Ur Epithelial Cells (NONE,FEW) RARE Urine Hemoglobin (NEG) NEG Urine Glucose (N MG/DL) NEG 03/22 03/22 03/22 03/22 0400 0345 0345 0345 Chemistry Sodium (137 - 145 mmol/L) 139 Potassium (3.5 - 5.1 mmol/L) 5.6 H Chloride (98 - 107 mmol/L) 104 Carbon Dioxide (22 - 30 mmol/L) 17 L Anion Gap (5 - 16) 18 H BUN (9 - 20 mg/dL) 86 H Creatinine (0.7 - 1.2 mg/dL) 4.3 H Estimated GFR (>60 ml/min) 14 L Glucose (65 - 99 mg/dL) 71 Lactic Acid (0.7 - 2.1 mmol/L) 1.7 Calcium (8.4 - 10.2 mg/dL) 7.9 L Phosphorus (2.5 - 4.5 mg/dL) 7.8 H Magnesium (1.6 - 2.3 mg/dL) 2.1 Total Bilirubin (0.2 - 1.3 mg/dL) 0.6 AST (17 - 59 U/L) 27 ALT (21 - 72 U/L) 31 Albumin (3.5 - 5.0 g/dL) 2.8 L Alpha Fetoprotein Pending Hematology CBC w Diff MAN DIFF ORDERED WBC (4.8 - 10.8 /CUMM) 7.5 RBC (4.70 - 6.10 /CUMM) 3.97 L Hgb (14.0 - 18.0 G/DL) 10.2 L Hct (42 - 52 %) 31.9 L MCV (80.0 - 94.0 FL) 80.5 MCH (27.0 - 31.0 PG) 25.8 L RDW (11.5 - 14.5 %) 19.6 H Plt Count (130 - 400 /CUMM) 224 MPV (7.4 - 10.4 FL) 10.6 H Segmented Neutrophils (42.2 - 75.2 %) 64 Band Neutrophils (0.0 - 5.0 %) 17 H Lymphocytes (20.5 - 51.1 %) 14 L Monocytes (1.7 - 9.3 %) 5 Platelet Estimate (ADEQUATE) ADEQUATE Hypochromic-Microcytic 1+ Poikilocytosis 2+ Anisocytosis 1+ PUBS MCHC (33.0 - 37.0 G/DL) 32.1 L Urines Urine Osmolality (300 - 1000 MOSM/KG) 325 Ur Random Creatinine (mg/dL) 127.9 Ur Random Sodium (30 - 90 mmol/L) 38 Ur Random Potassium (mmol/L) 43.6 Fraction Sodium Excret (<1% %) 0.9 03/22 03/21 03/21 0145 2311 2115 Blood Gas pH (7.35 - 7.45 PH) 7.32 L pCO2 (35 - 45 TORR) 29 L pO2 (80 - 100 TORR) 96 HCO3 (21 - 28 MEQ/L) 15 L ABG O2 Sat (Measured) (>96.0 %) 97.0 P-50 (Temp Corrected) N Carboxyhemoglobin (1.5 - 5.0 %) 0.4 L O2 Concentration % R/A Temperature (97.0 - 100.0 FARH) 97.3 Chemistry Lactic Acid (0.7 - 2.1 mmol/L) 2.3 H Hematology % Normal PMNs (%) 90 Miscellaneous Phlebotomy Draw Site RIGHT RADIAL Other Body Source Fluid WBC (0 - 5 /CUMM) 8222 H Fld Mesothelial Cells (%) 10 Fld Total RBCs Counted (0 /CUMM) 794 H 03/21 1513 Chemistry Sodium (137 - 145 mmol/L) 138 Potassium (3.5 - 5.1 mmol/L) 5.8 H Chloride (98 - 107 mmol/L) 104 Carbon Dioxide (22 - 30 mmol/L) 14 L Anion Gap (5 - 16) 19 H BUN (9 - 20 mg/dL) 81 H Creatinine (0.7 - 1.2 mg/dL) 4.3 H Estimated GFR (>60 ml/min) 14 L BUN/Creatinine Ratio (7 - 25 %) 18.8 Glucose (65 - 99 mg/dL) 90 Calcium (8.4 - 10.2 mg/dL) 8.6 Phosphorus (2.5 - 4.5 mg/dL) 7.8 H Magnesium (1.6 - 2.3 mg/dL) 1.2 L Total Bilirubin (0.2 - 1.3 mg/dL) 0.8 GGT (15 - 73 U/L) 203 H AST (17 - 59 U/L) 22 ALT (21 - 72 U/L) 24 Alkaline Phosphatase (< 127 U/L) 193 H Total Protein (6.3 - 8.2 g/dL) 6.2 L Albumin (3.5 - 5.0 g/dL) 3.0 L Globulin (1.9 - 4.2 gm/dL) 3.2 Albumin/Globulin Ratio (1.1 - 2.2 %) 0.9 L Amylase (30 - 110 U/L) 72 Lipase (23 - 300 U/L) 28 Hematology CBC w Diff MAN DIFF ORDERED WBC (4.8 - 10.8 /CUMM) 5.3 RBC (4.70 - 6.10 /CUMM) 4.69 L Hgb (14.0 - 18.0 G/DL) 11.9 L Hct (42 - 52 %) 37.3 L MCV (80.0 - 94.0 FL) 79.6 L MCH (27.0 - 31.0 PG) 25.5 L RDW (11.5 - 14.5 %) 19.5 H Plt Count (130 - 400 /CUMM) 281 MPV (7.4 - 10.4 FL) 11.1 H Gran % (42.2 - 75.2 %) 80.2 H Lymphocytes % (20.5 - 51.1 %) 10.6 L Monocytes % (1.7 - 9.3 %) 9.1 Eosinophils % (0 - 5 %) 0.1 Basophils % (0.0 - 2.0 %) 0 Absolute Granulocytes (1.4 - 6.5 /CUMM) 4.2 Segmented Neutrophils (42.2 - 75.2 %) 64 Band Neutrophils (0.0 - 5.0 %) 24 H Absolute Lymphocytes (1.2 - 3.4 /CUMM) 0.6 L Lymphocytes (20.5 - 51.1 %) 5 L Monocytes (1.7 - 9.3 %) 7 Absolute Monocytes (0.10 - 0.60 /CUMM) 0.5 Absolute Eosinophils (0.0 - 0.7 /CUMM) 0 Absolute Basophils (0.0 - 0.2 /CUMM) 0 Platelet Estimate (ADEQUATE) ADEQUATE Polychromasia Hypochromic-Microcytic 1+ Anisocytosis 1+ Microcytic Cells 1+ PUBS MCHC (33.0 - 37.0 G/DL) 32.0 L Imaging/Other Studies: 03/21/17: EKG- ST @ 105, normal axis, normal intervals, NSST, PRWP 03/21/17: XRY-PORTABLE CHEST XRAY- Low lung volumes with elevated right hemidiaphragm. No acute pulmonary findings. 03/21/17: CT ABDOMEN AND PELVIS WITHOUT CONTRAST- 1. Numerous cysts effectively replacing the normal hepatic and bilateral renal parenchyma, grossly similar compared to prior. There is a new hyperdense lesion in the right renal fossa which could represent a proteinaceous or hemorrhagic cyst however an underlying mass is not excluded. 2. Interval development of large amount of abdominopelvic ascites. 3. Stable position of a drainage catheter along the right hepatic dome. Absolute Granulocytes (1.4 - 6.5 /CUMM) 4.2 Segmented Neutrophils (42.2 - 75.2 %) 64 Band Neutrophils (0.0 - 5.0 %) 24 H Absolute Lymphocytes (1.2 - 3.4 /CUMM) 0.6 L Lymphocytes (20.5 - 51.1 %) 5 L Monocytes (1.7 - 9.3 %) 7 Absolute Monocytes (0.10 - 0.60 /CUMM) 0.5 Absolute Eosinophils (0.0 - 0.7 /CUMM) 0 Absolute Basophils (0.0 - 0.2 /CUMM) 0 Platelet Estimate (ADEQUATE) ADEQUATE Polychromasia Hypochromic-Microcytic 1+ Anisocytosis 1+ Microcytic Cells 1+ PUBS MCHC (33.0 - 37.0 G/DL) 32.0 L Imaging/Other Studies: 03/21/17: EKG- ST @ 105, normal axis, normal intervals, NSST, PRWP 03/21/17: XRY-PORTABLE CHEST XRAY- Low lung volumes with elevated right hemidiaphragm. No acute pulmonary findings. 03/21/17: CT ABDOMEN AND PELVIS WITHOUT CONTRAST-
--- NOTE | 2017-03-23 10:31 | PN- Infect Dx ---
Subjective Subjective: MAXIMUM TEMPERATURE 101.2. He feels improved, with pain controlled on morphine. He has had no further nausea, vomiting or diarrhea. Objective Last 24 Hrs of Vital Signs/I&O Vital Signs Date Time Temp Pulse Resp B/P B/P Pulse O2 O2 Flow FiO2 Mean Ox Delivery Rate 03/23 799 95 Room Air Room Air 03/23 08 98.4 96 20 98/77 95 Room Air Room Air 03/23 0119 98.8 03/23 0020 101.2 03/23 0000 101.2 110 26 96/68 96 Room Air 03/22 1600 99 Room Air Room Air 03/22 1600 100.2 114 28 100/70 99 Room Air Room Air 03/22 1200 98 Room Air Room Air Intake & Output 03/23 1600 03/23 0803/23 0000 Intake Total 412 1149 Output Total 150 Balance 262 1149 Intake, IV 412 669 Intake, Oral 480 Output, Urine 150 Patient 163 lb 164 lb Weight Weight Bed scale Measurement Method Physical Exam Other Physical Findings: He appears comfortable in no acute distress Lungs decreased breath sounds at the left base; Pleurx catheter in the right chest with dressing intact Heart regular rhythm with no murmur Abdomen is markedly distended, tender to palpation, mostly in the left lower quadrant, with no guarding or rebound, positive bowel sounds Extremities 1+ edema both lower extremities Results Last 24 Hours of Lab Results: Laboratory Tests 03/23 03/22 0430 2049 Chemistry Sodium (137 - 145 mmol/L) 136 L Potassium (3.5 - 5.1 mmol/L) 5.0 Chloride (98 - 107 mmol/L) 104 Carbon Dioxide (22 - 30 mmol/L) 13 L Anion Gap (5 - 16) 19 H BUN (9 - 20 mg/dL) 92 H Creatinine (0.7 - 1.2 mg/dL) 4.6 H Estimated GFR (>60 ml/min) 13 L Glucose (65 - 99 mg/dL) 90 Calcium (8.4 - 10.2 mg/dL) 7.7 L Phosphorus (2.5 - 4.5 mg/dL) 7.9 H Magnesium (1.6 - 2.3 mg/dL) 2.3 Total Bilirubin (0.2 - 1.3 mg/dL) 0.5 AST (17 - 59 U/L) 27 ALT (21 - 72 U/L) 42 Troponin I Cancelled Albumin (3.5 - 5.0 g/dL) 2.8 L Hematology CBC w Diff MAN DIFF ORDERED WBC (4.8 - 10.8 /CUMM) 8.3 RBC (4.70 - 6.10 /CUMM) 3.78 L Hgb (14.0 - 18.0 G/DL) 9.6 L Hct (42 - 52 %) 29.9 L MCV (80.0 - 94.0 FL) 79.1 L MCH (27.0 - 31.0 PG) 25.4 L RDW (11.5 - 14.5 %) 19.7 H Plt Count (130 - 400 /CUMM) 187 MPV (7.4 - 10.4 FL) 10.5 H Segmented Neutrophils (42.2 - 75.2 %) 92 H Band Neutrophils (0.0 - 5.0 %) 1 Lymphocytes (20.5 - 51.1 %) 4 L Monocytes (1.7 - 9.3 %) 2 Metamyelocytes (0.0 - 1.0 %) 1 Platelet Estimate (ADEQUATE) ADEQUATE Hypochromic-Microcytic 1+ Microcytic Cells 1+ Target Cells RARE [place] Cells 1+ Elliptocytes FEW PUBS MCHC (33.0 - 37.0 G/DL) 32.0 L Toxicology Random Vancomycin (ug/ml) 9.2 03/22 03/22 03/22 1700 1645 1615 Chemistry Sodium (137 - 145 mmol/L) 138 Potassium (3.5 - 5.1 mmol/L) 5.1 Chloride (98 - 107 mmol/L) 102 Carbon Dioxide (22 - 30 mmol/L) 17 L Anion Gap (5 - 16) 19 H BUN (9 - 20 mg/dL) 90 H Creatinine (0.7 - 1.2 mg/dL) 4.4 H Estimated GFR (>60 ml/min) 13 L Glucose (65 - 99 mg/dL) 92 Calcium (8.4 - 10.2 mg/dL) 7.7 L Phosphorus (2.5 - 4.5 mg/dL) 7.5 H Magnesium (1.6 - 2.3 mg/dL) 1.8 Total Bilirubin (0.2 - 1.3 mg/dL) 0.5 AST (17 - 59 U/L) 27 ALT (21 - 72 U/L) 34 Albumin (3.5 - 5.0 g/dL) 3.3 L Coagulation PT (9.4 - 12.5 SEC) 15.3 H INR (0.90 - 1.17) 1.46 H APTT (25 - 37 SEC) 30 Hematology CBC w Diff MAN DIFF ORDERED WBC (4.8 - 10.8 /CUMM) 7.5 RBC (4.70 - 6.10 /CUMM) 4.00 L Hgb (14.0 - 18.0 G/DL) 10.1 L Hct (42 - 52 %) 31.9 L MCV (80.0 - 94.0 FL) 79.7 L MCH (27.0 - 31.0 PG) 25.1 L RDW (11.5 - 14.5 %) 20.5 H Plt Count (130 - 400 /CUMM) 195 MPV (7.4 - 10.4 FL) 9.5 Segmented Neutrophils (42.2 - 75.2 %) 79 H Band Neutrophils (0.0 - 5.0 %) 10 H Lymphocytes (20.5 - 51.1 %) 6 L 1 Monocytes (1.7 - 9.3 %) 4 Eosinophils (0 - 5.0 %) 1 % Normal PMNs (%) 91 Platelet Estimate (ADEQUATE) ADEQUATE Polychromasia 1+ Hypochromic-Microcytic 1+ Poikilocytosis 1+ Anisocytosis 1+ PUBS MCHC (33.0 - 37.0 G/DL) 31.5 L Misc Hematology Test (%) Other Body Source Fluid WBC (0 - 5 /CUMM) 4250 H Fld Total RBCs Counted (0 /CUMM) 475 H 03/22 1533 Other Body Source Fluid Total Protein Cancelled Last 24 Hours of [place] Results: Blood cultures 2 March 22 negative Ascitic fluid culture March 22 positive for gram-negative rods Urine culture March 22 negative Assessment/Plan Impression: Peritonitis, with gram negative rods isolated from the ascitic fluid, secondary to the Pleurx catheter, initially inserted 8 months prior to admission, with migration into the peritoneal cavity perhaps 5-6 months prior to admission, with plans for removal of this catheter in the OR later today. He was again febrile last night, but his white blood cell count remains normal, with no bands today, on Vancomycin and Ceftazidime. Given the culture results for gram-negative rods he should not require further Vancomycin. Suggestion: 1. Await removal of the Pleurx catheter later today 2. Follow-up final ascitic fluid culture 3. Continue Ceftazidime pending above
--- NOTE | 2017-03-23 12:33 | RADIOLOGY REPORT ---
EXAMINATION: XR PORTABLE CHEST CLINICAL INFORMATION: Status post removal of Pleurx catheter, in PACU COMPARISON: Chest radiograph from 03/21/2017 TECHNIQUE: Portable frontal view of the chest was obtained. FINDINGS: There is new moderate to large right pleural effusion and atelectasis of the underlying lung. There is mild left basilar atelectasis. No evidence of pneumothorax. The cardiomediastinal silhouette is unchanged. Aortic atherosclerosis again noted. Likely similar elevation of the right hemidiaphragm. IMPRESSION: New moderate to large right pleural effusion. Atelectasis of the right mid and lower lung as well as the left base.
--- NOTE | 2017-03-23 12:37 | Cons- Thoracic Surgery ---
General Information and HPI Consulting Request Date of Consult: 03/22/17 Requested By: Yadi LYONS,Kary Schultz Reason for Consult: Management of abdominal drainage catheter in the setting of bacterial peritonitis Source of Information: patient, family, old records, PCP Exam Limitations: no limitations History of Present Illness: The patient is very well known to me. I saw him originally in the spring for evaluation of a symptomatic right pleural effusion that was felt secondary to hepatic hydrothorax. He has a history of polycystic kidney and liver disease with renal insufficiency and a massively enlarged liver. I placed the Pleurx catheter at that time and we subsequently found that the catheter was in fact in the abdominal cavity and that the fluid being drain was ascites. We arranged with interventional radiology place a Pleurx catheter intrathoracic. Over the course of the next few months the patient had a resolution of his pleural effusive process and that pleural catheter was removed by me in the operating room. The abdominal catheter remained in place to manage what was becoming a significantly more symptomatic and larger volume ascites. I was called today because the patient is been admitted to the hospital with evidence of bacterial peritonitis with significant white blood cell count in his peritoneal fluid. Evaluation is asked for possible removal of drainage catheter. Allergies/Medications Allergies: Coded Allergies: NO KNOWN ALLERGIES (02/26/15) Home Med List: Furosemide 40 MG TABLET 1 TAB PO Tuesday WATER RETENTION (Reported) Hydrocodone/Acetaminophen ([place] 5-325 Tablet) 5 MG-325 MG TABLET 1-2 TAB PO Q4-6 PRN PRN PAIN Lisinopril (Prinivil) 20 MG TABLET 1 TAB PO DAILY HTN (Reported) Omeprazole 40 MG CAPSULE.DR 1 CAP PO DAILY GI (Reported) Verapamil HCl (Verapamil Sr) 180 MG CAP24H.PEL 1 TAB PO DAILY HTN (Reported) Current Medications: Current Medications Sig/Lola Start time Last Medication Dose Route Stop Time Status Admin Acetaminophen 325 MG .STK-MED ONE 03/23 0015 DC PO 03/23 0016 Acetaminophen 325 MG Q4P PRN 03/21 2115 AC 03/23 PO 0020 Albumin Human 25 GM Q8 03/23 1400 AC IV 03/24 0601 Albumin Human 25 GM Q8 03/21 2236 DC 03/22 IV 03/22 1401 1512 Ceftazidime 1,000 MG Q12H 03/23 0830 AC 03/23 IV 0820 Ceftazidime 1,000 MG Q12H 03/22 1800 DC 03/22 IV 2035 Ceftriaxone Sodium 1,000 MG DAILY 03/23 1000 CAN IV Hydrocodone Bitart/ 1 TAB Q6P PRN 03/21 2100 AC Acetaminophen PO Magnesium Oxide 400 MG BID 03/22 2200 CAN PO 03/25 1001 Magnesium Sulfate 1 GM Q2H 03/22 1830 DC 03/22 Dextrose/Water 100 ML IV 03/22 2229 2035 Metoclopramide HCl 10 MG Q6P PRN 03/21 2315 AC 03/22 IV 0652 Morphine Sulfate 2 MG Q4P PRN 03/21 2100 AC 03/23 IV 0603 Nitroglycerin 0.4 MG ONCE ONE 03/22 2100 CAN SL 03/22 2101 Sodium Chloride 1,000 ML Q20H 03/21 2245 DC 03/22 IV 03/22 1844 0935 Vancomycin HCl 1,000 MG ONCE ONE 03/22 1200 DC 03/22 Sodium Chloride 250 ML IV 03/22 1259 1308 Past History Medical History Blood Transfusion Hx: No Neurological: Sciatica EENT: NONE Cardiovascular: hypertension, hyperlipidemia Respiratory: NONE Gastrointestinal: INGUINAL HERNIA Hepatic: POLYCYSTIC LIVER ASCITES PLEUREX CATH DRAIN TO R ABD Ascites Renal: POLYCYSTIC KIDNEY Musculoskeletal: NONE Psychiatric: NONE Endocrine: NONE Blood Disorders: NONE Cancer(s): BASAL CELL CARCINOMA GUM PULLER/Reproductive: NONE Surgical History Pertinent Surgical History: non-contributory Family History Relations & Conditions If Any: DAUGHTER (Postoperative have Polycystic kidney disease). SON ( has polycystic kidney disease). Relation not specified for: *No pertinent family history Psychosocial History Where Do You Live? Home Smoking Status: Never Smoked ETOH Use: denies use Illicit Drug Use: denies illicit drug use Functional Ability ADLs Independent: dressing, eating, toileting, bathing. Ambulation: independent IADLs Independent: shopping, housework, finances, food prep, telephone, transportation , medication admin. 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 He has had no recent respiratory symptoms and his shortness of breath has resolved. Exam & Diagnostic Data Vital Signs and I&O Vital Signs Date Time Temp Pulse Resp B/P B/P Pulse O2 O2 Flow FiO2 Mean Ox Delivery Rate 03/23 799 95 Room Air Room Air 01/10 0800 98.4 96 20 98/77 95 Room Air Room Air 03/23 0119 98.8 03/23 0020 101.2 03/23 0000 101.2 110 26 96/68 96 Room Air 03/22 1600 99 Room Air Room Air 03/22 1600 100.2 114 28 100/70 99 Room Air Room Air Intake & Output 03/23 1600 03/23 0800 03/23 0000 03/22 1600 03/22 0800 03/22 0000 Intake Total 412 3635 082 5501 Output Total 150 1050 Balance 262 1149 819 67 Intake, Blood 200 Product Intake, IV 412 669 619 817 Intake, Oral 480 200 100 Number 1 Bowel Movements Output, 1000 Drainage Output, Urine 150 50 Patient 163 lb 164 lb 159 lb 150 lb Weight Weight Bed scale Measurement Method Physical Exam: On physical examination he is resting comfortably in bed. His skin is warm and well perfused no suspicious lesions noted. He has a general role all lack of fibrofatty tissue throughout his body. The sclerae are anicteric and his mucous membranes are moist. There is no cervical or supraclavicular lymphadenopathy. Breath sounds are clear bilaterally. His cardiac exam shows regular rhythm and rate no murmurs or sounds. His abdomen is massively distended and firm secondary to his protruding cystic liver. There is no appreciation of any fluid wave. The periphery shows no cyanosis clubbing or edema. His neurologic exam is grossly normal for motor and sensory function. Report is of 8000 white blood cells and the peritoneal fluid and I have a verbal report from infectious disease that the fluid is culture positive. Last 24 Hours of Labs: Laboratory Tests 03/230 9 Chemistry Sodium (137 - 145 mmol/L) 136 L Potassium (3.5 - 5.1 mmol/L) 5.0 Chloride (98 - 107 mmol/L) 104 Carbon Dioxide (22 - 30 mmol/L) 13 L Anion Gap (5 - 16) 19 H BUN (9 - 20 mg/dL) 92 H Creatinine (0.7 - 1.2 mg/dL) 4.6 H Estimated GFR (>60 ml/min) 13 L Glucose (65 - 99 mg/dL) 90 Calcium (8.4 - 10.2 mg/dL) 7.7 L Phosphorus (2.5 - 4.5 mg/dL) 7.9 H Magnesium (1.6 - 2.3 mg/dL) 2.3 Total Bilirubin (0.2 - 1.3 mg/dL) 0.5 AST (17 - 59 U/L) 27 ALT (21 - 72 U/L) 42 Troponin I Cancelled Albumin (3.5 - 5.0 g/dL) 2.8 L Hematology CBC w Diff MAN DIFF ORDERED WBC (4.8 - 10.8 /CUMM) 8.3 RBC (4.70 - 6.10 /CUMM) 3.78 L Hgb (14.0 - 18.0 G/DL) 9.6 L Hct (42 - 52 %) 29.9 L MCV (80.0 - 94.0 FL) 79.1 L MCH (27.0 - 31.0 PG) 25.4 L RDW (11.5 - 14.5 %) 19.7 H Plt Count (130 - 400 /CUMM) 187 MPV (7.4 - 10.4 FL) 10.5 H Segmented Neutrophils (42.2 - 75.2 %) 92 H Band Neutrophils (0.0 - 5.0 %) 1 Lymphocytes (20.5 - 51.1 %) 4 L Monocytes (1.7 - 9.3 %) 2 Metamyelocytes (0.0 - 1.0 %) 1 Platelet Estimate (ADEQUATE) ADEQUATE Hypochromic-Microcytic 1+ Microcytic Cells 1+ Target Cells RARE [place] Cells 1+ Elliptocytes FEW PUBS MCHC (33.0 - 37.0 G/DL) 32.0 L Toxicology Random Vancomycin (ug/ml) 9.2 03/22 03/22 03/22 1700 1645 1615 Chemistry Sodium (137 - 145 mmol/L) 138 Potassium (3.5 - 5.1 mmol/L) 5.1 Chloride (98 - 107 mmol/L) 102 Carbon Dioxide (22 - 30 mmol/L) 17 L Anion Gap (5 - 16) 19 H BUN (9 - 20 mg/dL) 90 H Creatinine (0.7 - 1.2 mg/dL) 4.4 H Estimated GFR (>60 ml/min) 13 L Glucose (65 - 99 mg/dL) 92 Calcium (8.4 - 10.2 mg/dL) 7.7 L Phosphorus (2.5 - 4.5 mg/dL) 7.5 H Magnesium (1.6 - 2.3 mg/dL) 1.8 Total Bilirubin (0.2 - 1.3 mg/dL) 0.5 AST (17 - 59 U/L) 27 ALT (21 - 72 U/L) 34 Albumin (3.5 - 5.0 g/dL) 3.3 L Coagulation PT (9.4 - 12.5 SEC) 15.3 H INR (0.90 - 1.17) 1.46 H APTT (25 - 37 SEC) 30 Hematology CBC w Diff MAN DIFF ORDERED WBC (4.8 - 10.8 /CUMM) 7.5 RBC (4.70 - 6.10 /CUMM) 4.00 L Hgb (14.0 - 18.0 G/DL) 10.1 L Hct (42 - 52 %) 31.9 L MCV (80.0 - 94.0 FL) 79.7 L MCH (27.0 - 31.0 PG) 25.1 L RDW (11.5 - 14.5 %) 20.5 H Plt Count (130 - 400 /CUMM) 195 MPV (7.4 - 10.4 FL) 9.5 Segmented Neutrophils (42.2 - 75.2 %) 79 H Band Neutrophils (0.0 - 5.0 %) 10 H Lymphocytes (20.5 - 51.1 %) 6 L 1 Monocytes (1.7 - 9.3 %) 4 Eosinophils (0 - 5.0 %) 1 % Normal PMNs (%) 91 Platelet Estimate (ADEQUATE) ADEQUATE Polychromasia 1+ Hypochromic-Microcytic 1+ Poikilocytosis 1+ Anisocytosis 1+ PUBS MCHC (33.0 - 37.0 G/DL) 31.5 L Misc Hematology Test (%) Other Body Source Fluid WBC (0 - 5 /CUMM) 4250 H Fld Total RBCs Counted (0 /CUMM) 475 H 03/22 1533 Other Body Source Fluid Total Protein Cancelled Assessment/Plan Assessment/Plan The patient has an abdominal catheter in place and positive cultures of his peritoneal fluid. After long discussion with the renal service and the medicine service is necessary for this catheter. Removed. The issue is one of continued management of his ascites which has now become problematic. His gastroenterology should be consulted to be involved and the renal services contemplating reevaluation by transplant service. We will take him to the operating room tomorrow for removal of the Pleurx catheter. Unfortunately with his paucity of subcutaneous tissue I'm very concerned that he will continue to have an ascitic leak out of his catheter site but we will deal with that as necessary. Copies To: Merly LYONS,Anderson Rowe; Dunia LOYNS,Milton Darling; Nadiya LYONS,Daryl Ying. Consult Acknowledgment - Thank you for your consult request.
--- NOTE | 2017-03-23 12:39 | Operative Report ---
Operative/Inv Procedure Report Surgery Date: 03/23/17 Name of Procedure: Pleurx catheter removal Pre-Operative Diagnosis: Bacterial peritonitis Post-Operative Diagnosis: Same Estimated Blood Loss: none Surgeon/Beer Cooler: Fransisco Carson MD Anesthesia: local monitored anesthesi Operative/Procedure Note Note: After placement of monitoring lines the patient's catheter site was prepped and draped in a sterile fashion. 1% lidocaine with epinephrine was used local anesthetic. Simple blunt dissection around the catheter cuff allowed for complete freeing of the catheter and removal of the catheter with no resistance. There was noted to be a steady flow of ascites fluid under pressure. This was controlled by horizontal mattress sutures reapproximating the skin edges along with sutures that cinched closed the subcutaneous tract. The wound was then dressed with a sterile dressing. The patient tolerated procedure well and was brought to recovery room in stable condition.
--- NOTE | 2017-03-23 12:40 | PN- Thoracic Surgery ---
Surgical Brief Attending Note Brief Attending Note: I was called to the recovery room post procedures the patient was having significant respiratory distress with an absence of breath sounds on the right side. A stat chest x-ray has shown fluid in the right hemithorax. My suspicion is that the catheter that I removed did indeed enter the thoracic cavity but pierced the diaphragm originally. Now that the catheters removed and there is a connection between the abdomen and the chest and he has translocated ascites fluid under pressure into his right hemithorax. We discussed the situation with interventional radiology and given our previous difficulties with appropriate catheter placement in the right hemithorax they will go ahead and place a pigtail catheter and connected to a Pleur-evac. I suspect there will be a very large volume drainage shortly and we will have to see what the acromial duration is and hopefully we can achieve some degree of sealing of the communication between the abdomen and the hemithorax.
--- NOTE | 2017-03-23 12:49 | Event Note ---
Event Note Event Note: PT SEEN IN RECOVERY ROOM CO R SIDE CHEST PAIN AND SHORTNESS OF BREATH. I EVALUATED HIM IN THE PACU. ABSCENT LUNG SOUNDS ON THE R. HR 115, ELEVATED RESP RATE, O2 SAT 82% ON 3L NC, LABORED BREATHING, TRACHEA MIDLINE. CXR ORDERED TO EVAL FOR PTX/PLEURAL EFFUSION. JOHN TERRELL WHO EVALUATED THE PATIENT. CXR SHOWS LARGE R PLEURAL EFFUSION DW IR, CHEST TUBE WILL BE PLACED TO DRAIN FLUID BY INTERVENTIONAL RADIOLOGY. PT CONTINUES ON SUPPLEMENTAL O2, GUARDED BUT STABLE CONDITION. DW PT AND AT BEDSIDE WHO UNDERSTAND AND AGREE WITH PLAN.
--- NOTE | 2017-03-23 13:26 | Cons- CRCU ---
Escobar Ribera MD,[facility] 03/23/17 1326: General Information and HPI Consulting Request Date of Consult: 03/23/17 Requested By: medicine team CT surgery team Reason for Consult: Respiratory distress after cath removal Source of Information: patient, family, old records History of Present Illness: This is a pleasant 66-year-old gentleman requested to be consulted by medicine team due to repiratory distress after cath removal. Briefly patient was initially presented in the emergency room complaining of nausea, and diarrhea and increased abdominal girth and distention on Mar 21 2017. PMH was significant for Polycystic kidney disease, cirrhosis/portal hypertension was evaluated in-year-old transplant organ recently according to patient biopsy was done and patient is currently not on any transplant list; x2 pleurex catheter on the right hemithorax: first one first one had migrated, but both remained; second catheter was placed on July 2016 and removed in February 2017 for recurrence pleural effusion and another intra abdominal pleurex catheter. Patient was admitted to ICU, being followed with medicine team for sepsis ( associated with positive culture of GNR in ascites fluide) and was sent for abdominal Cath removal on 03/23/[address] surgery team considering infection. After cath removal patient had respiratory distress, CXR revealed significant pleural effusion in the same side, emergent pigtail was placed and patient was transferred back to ICU. Allergies/Medications Allergies: Coded Allergies: NO KNOWN ALLERGIES (02/26/15) Home Med List: Furosemide 40 MG TABLET 1 TAB PO Tuesday WATER RETENTION (Reported) Hydrocodone/Acetaminophen (Amenia 5-325 Tablet) 5 MG-325 MG TABLET 1-2 TAB PO Q4-6 PRN PRN PAIN Lisinopril (Prinivil) 20 MG TABLET 1 TAB PO DAILY HTN (Reported) Omeprazole 40 MG CAPSULE.DR 1 CAP PO DAILY GI (Reported) Verapamil HCl (Verapamil Sr) 180 MG CAP24H.PEL 1 TAB PO DAILY HTN (Reported) Review of Systems Review of Systems Constitutional: Reports: see HPI. 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 SON ( has polycystic kidney disease). Relation not specified for: *No pertinent family history Psychosocial History Where Do You Live? Home Smoking Status: Never Smoked ETOH Use: denies use Illicit Drug Use: denies illicit drug use Functional Ability ADLs Independent: dressing, eating, toileting, bathing. Ambulation: independent IADLs Independent: shopping, housework, finances, food prep, telephone, transportation , medication admin. 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 Exam & Diagnostic Data Last 24 Hrs of Vital Signs/I&O Vital Signs Date Time Temp Pulse Resp B/P B/P Pulse O2 O2 Flow FiO2 Mean Ox Delivery Rate 03/23 1600 97 Nasal 4.0L Cannula 03/23 1600 98.4 104 24 100/70 98 Nasal 4.0L Cannula 03/23 1300 92 Non 100% ReBreather 03/23 0800 95 Room Air Room Air 03/23 0800 98.4 96 20 98/77 95 Room Air Room Air 03/23 0119 98.8 03/23 0020 101.2 03/23 0000 101.2 110 26 96/68 96 Room Air Intake & Output 03/23 1600 03/23 0800 03/23 0000 Intake Total 445 939 3385 Output Total 1850 150 Balance -0181 443 2260 Intake, IV 773 412 669 Intake, Oral 480 Output, Chest 1850 Tube Drainage Output, Urine 150 Patient 163 lb 164 lb Weight Weight Bed scale Measurement Method Physical Exam General Appearance: mild distress, ill looking, Cachectic Head: atraumatic, normal appearance, cachectic Neck: supple Respiratory: decreased breathing sounds in right side Cardiovascular: regular rate/rhythm Gastrointestinal: abdominal distansion, generalized tenderness in palpation, no change comapred to yesterday Extremities: no edema Last 48 Hrs of Labs/Clarke: Laboratory Tests 03/23/17 0430: Anion Gap 19 H, Estimated GFR 13 L, Glucose 90, Calcium 7.7 L, Phosphorus 7.9 H, Magnesium 2.3, Total Bilirubin 0.5, AST 27, ALT 42, Albumin 2.8 L, CBC w Diff MAN DIFF ORDERED, RBC 3.78 L, MCV 79.1 L, MCH 25.4 L, RDW 19.7 H, MPV 10.5 H, Segmented Neutrophils 92 H, Band Neutrophils 1, Lymphocytes 4 L, Monocytes 2, Metamyelocytes 1, Platelet Estimate ADEQUATE, Hypochromic- Microcytic 1+, Microcytic Cells 1+, Target Cells RARE, Ahsan Cells 1+, Elliptocytes FEW, PUBS MCHC 32.0 L, Random Vancomycin 9.2 03/22/17 2049: Troponin I Cancelled 03/22/17 1700: Anion Gap 19 H, Estimated GFR 13 L, Glucose 92, Calcium 7.7 L, Phosphorus 7.5 H, Magnesium 1.8, Total Bilirubin 0.5, AST 27, ALT 34, Albumin 3.3 L, CBC w Diff MAN DIFF ORDERED, RBC 4.00 L, MCV 79.7 L, MCH 25.1 L, RDW 20.5 H, MPV 9.5, Segmented Neutrophils 79 H, Band Neutrophils 10 H, Lymphocytes 6 L, Monocytes 4, Eosinophils 1, Platelet Estimate ADEQUATE, Polychromasia 1+, Hypochromic-Microcytic 1+, Poikilocytosis 1+, Anisocytosis 1+, PUBS MCHC 31.5 L 03/22/17 1645: PT 15.3 H, INR 1.46 H, APTT 30 03/22/17 1615: Lymphocytes 1, % Normal PMNs 91, [facility] Hematology Test , Fluid WBC 4250 H, Fld Total RBCs Counted 475 H 03/22/17 1533: Fluid Total Protein Cancelled 03/22/17 1000: Fluid Glucose 78, Fluid Total Protein 3.8, Fluid Albumin 1.8, Fluid LDH 578 03/22/17 0400: Urinalysis MOD H, Urine Color YEL, Urine Clarity HAZY H, Urine pH 5.5, Ur Specific Castaner 1.025, Urine Protein 30 H, Urine Ketones NEG, Urine Nitrite NEG, Urine Bilirubin NEG, Urine Urobilinogen 0.2, Ur Leukocyte Esterase NEG, Ur Microscopic SEDIMENT EXAMINED, Urine RBC RARE, Urine WBC 1-3 H, Ur Epithelial Cells RARE, Urine Hemoglobin NEG, Urine Glucose NEG 03/22/17 0400: Urine Osmolality 325, Ur Random Creatinine 127.9, Ur Random Sodium 38, Ur Random Potassium 43.6, Fraction Sodium Excret 0.9 03/22/17 0345: Lactic Acid 1.7 03/22/17 0345: Alpha Fetoprotein Pending 03/22/17 0345: Anion Gap 18 H, Estimated GFR 14 L, Glucose 71, Calcium 7.9 L, Phosphorus 7.8 H, Magnesium 2.1, Total Bilirubin 0.6, AST 27, ALT 31, Albumin 2.8 L, CBC w Diff MAN DIFF ORDERED, RBC 3.97 L, MCV 80.5, MCH 25.8 L, RDW 19.6 H, MPV 10.6 H, Segmented Neutrophils 64, Band Neutrophils 17 H, Lymphocytes 14 L, Monocytes 5, Platelet Estimate ADEQUATE, Hypochromic-Microcytic 1+, Poikilocytosis 2+, Anisocytosis 1+, PUBS MCHC 32.1 L 03/22/17 0145: % Normal PMNs 90, Fluid WBC 8222 H, Fld Mesothelial Cells 10, Fld Total RBCs Counted 794 H 03/21/17 2311: Lactic Acid 2.3 H 03/21/17 2115: pH 7.32 L, pCO2 29 L, pO2 96, HCO3 15 L, ABG O2 Sat (Measured) 97.0, P-50 ( Temp Corrected) N, Carboxyhemoglobin 0.4 L, O2 Concentration % R/A, Temperature 97.3, Phlebotomy Draw Site RIGHT RADIAL Microbiology 03/210 UPPER RESP: Surveillance Culture - COMP Assessment/Plan Impression/Plan: Mr. Tijerina is a 66 yo m with a PMH of PKD, Polycystic liver disease, portal HTN , HTN, HLD, umbilical hernia repair, colon ademona, GERD who presented to the ED with NVD with progressively worsened abdominal distention from ascitic fluid. Respiratory distress after Cath removal Most likely the cath removed left connection between abdominal cavity and pleural space, leading to transfer of ascitis to pleural space. PIg tail in place drained fluids. * Continue pig tail drain * O2 supplemet, Patient was saturating >90% with NC * consider HF o2 if needed Ascites with SBP vs Catheter-associated Peritonitis Patient had an indwelling pleural catheter placed in July 2016 for pleural effusion that migrated into the abdominal cavity. Considering that the patient's catheter was never removed it can be a possible source of infection. He had another catheter placed in the R lung that was eventually removed. CT abdomen/ pelvis on admission demonstrated the resolution of his R-side pleural effusion. He gets 1L of ascitic fluid drained from the migrated Pleurx catheter on MWF. Prior to coming to the hospital it was last drained on Tuesday by his visiting nurse. He had a diagnostic and therapeutic paracentesis performed overnight. His ascitic fluid white count was 8222. * ID recommendations appreciated * GI recommendations appreciated * Continue ceftaz * Continue Metoclopramide for nausea * Hold Vancomycin * Vancomycin level in a.m. done * Removal of indwelling catheter in a.m by Dr. Carson today * follow post op care * Repeat paracentesis for fluid analysis with total protein * Follow up ascitic fluid culture results for identification of the pathogen and sensitivity results Initially sepsis in presentation seondary to GNB infection in ascites (could be related to cath (if PA) or SBP if Ecoli) now resolved. will wait for identification of the GNR SHELBY on CKD most likely 2/2 dehydration in the setting of his CKD from PKD Patient is reported to have a baseline of 2-3. His Cr is now 4.3. He was given 2L of IVF and is currently on an albumin infusion. * Monitor renal function * Continue IV Albumin 25 gm q8 * Continue NS IVF History of PKD, Polycystic liver disease Patient reported he had an appt at [place] [facility] in which he was told he wouldn't receive a transplant until the resolution of his ascitic fluid. CT abd/pel demonstrated numerous cysts effectively replacing the normal hepatic and bilateral renal parenchyma * ECHO to r/o SHD or valvular abnormalities Hyperkalemia * Monitor potassium * Start 2g potassium restriction in diet Cachectia related to chronic disease * nutrition support * DVT ppx: ALPS Problem List: 1. Polycystic kidney disease 2. Polycystic liver disease Consult Acknowledgment - Thank you for your consult request. Suhail Morocho MD 03/23/17 1511: Assessment/Plan Other Findings/Comments: Suhail Moran M.D. have examined this patient, reviewed available EMR data, personally reviewed images, discussed with resident/PA/DRY TRANSFER MAN, discussed management plan with housestaff and nursing staff, discussed managment plan all of healthcare providers, discussed management plan with patient and/or family, agreed with resident/PA/DRY TRANSFER MAN. The past history and parts of the chart have been autopopulated. TTS 40 min Consult Acknowledgment - Thank you for your consult request.
--- NOTE | 2017-03-23 15:19 | ULTRASOUND REPORT ---
EXAMINATION: ULTRASOUND-GUIDED RIGHT-SIDED CHEST TUBE PLACEMENT CLINICAL INFORMATION: Large pleural effusion on chest x-ray and shortness of breath.. INTERVENTIONALIST: Easton Lei MD PROCEDURE/FINDINGS: After all the risks, benefits and alternatives were explained to the patient and all questions answered, informed consent was signed. Preliminary ultrasound demonstrates significant right-sided pleural fluid. The patient's back was prepped and draped using maximal sterile barrier technique. All elements of maximal sterile barrier technique followed including use of cap, mask, sterile gown, sterile gloves, a sterile full body drape and hand hygiene. Also followed skin preparation with 2% chlorhexidine for cutaneous antisepsis, and sterile ultrasound preparation with sterile gel and probe cover when applicable. Using ultrasound guidance a 10 Danish locking pigtail catheter/chest tube was placed into the right pleural cavity. There is return of clear yellow Pleural fluid. A chest tube was attached to an Atrium drain sutured in place and fixed to the skin with a StatLock. A sterile dressing was applied to the site. MEDICATIONS: Lidocaine 1% was used for local anesthesia. IMPRESSION: Ultrasound-guided 10 Danish right-sided chest tube placement.
[2017-03-23 16:00] VITALS: BP 100/70
[2017-03-24] VITALS: BP 88/68
[2017-03-24 05:33] LABS: HEMATOCRIT 28.8 % (42-52); MEAN CORPUSCULAR HGB CONC 31.6 G/DL (33.0-37.0); MEAN CORPUSCULAR VOLUME 78.9 FL (80.0-94.0); MEAN PLATELET VOLUME 10.4 FL (7.4-10.4); PLATELET COUNT 163 /CUMM (130-400); RBC DISTRIBUTION WIDTH 19.6 % (11.5-14.5); RED BLOOD CELL CT 3.64 /CUMM (4.70-6.10)
--- NOTE | 2017-03-24 07:52 | PN- Resident CRCU ---
Subjective HPI/CRCU Issues: Catheter-associated Peritonitis SHELBY on CKD Hyperkalemia Acute hypoxic respiratory failure 24 Hour Events: His pigtail drained 900 cc in last 8 hrs. He reports R-sided pleuritic CP with inspiration that subsides temporarily with current pain meds. Objective Vital Signs & I&O Last 8 Hrs of Vitals and I&O: BP:101-122 HR: 82-96 I: 100 O: 1200 Cath output: 900 Exam General Appearance: alert, awake, mild distress Head: atraumatic, normal appearance Ears, Nose, Throat: normal pharynx, normal ENT inspection, hearing grossly normal Neck: normal inspection, supple, full range of motion Respiratory: decreased breath sounds Cardiovascular: regular rate/rhythm Gastrointestinal: distention, Positive fluid wave Extremities: no edema Current Medications: Current Medications Sig/Lola Start time Last Medication Dose Route Stop Time Status Admin Acetaminophen 325 MG Q4P PRN 03/21 2115 AC 03/23 PO 0020 Albumin Human 25 GM Q8 03/23 1400 DC 03/24 IV 03/24 0601 0610 Ceftazidime 1,000 MG Q12H 03/23 0830 AC 03/23 IV 2020 Hydrocodone Bitart/ 1 TAB Q6P PRN 03/21 2100 AC Acetaminophen PO Hydromorphone HCl 2 MG .STK-MED ONE 03/23 1058 DC IM 03/23 1059 Metoclopramide HCl 10 MG .STK-MED ONE 03/23 1657 DC IM 03/23 1658 Metoclopramide HCl 10 MG Q6P PRN 03/21 2315 AC 03/23 IV 1657 Morphine Sulfate 2 MG Q4P PRN 03/21 2100 AC 03/24 IV 0452 Ondansetron HCl 4 MG .STK-MED ONE 03/23 1226 DC IM 03/23 1227 Impression/Plan Impression/Problem List Impression: Mr. Tijerina is a 66 yo m with a PMH of PKD, Polycystic liver disease, portal HTN , HTN, HLD, umbilical hernia repair, colon ademona, GERD who presented to the ED with NVD with progressively worsened abdominal distention from ascitic fluid. Acute hypoxic respiratory failure s/p Pleurx Cath removal Patient has a patent connection between abdominal cavity and pleural space 2/2 migrated indwelling catheter, leading to transfer of ascitic fluid to the pleural space. A pig tail was placed. As per Dr. Carson options are to watch and wait to see if spontaneously resolves vs surgical intervention * Continue pigtail catheter drainage connected to water seal * Continue oxygen supplementation, goal O2 sat >90% * PA/Lateral CXR for pleural effusion * Surgery recommendations appreciated Catheter-associated Peritonitis Patient had an indwelling pleural catheter placed in July 2016 for pleural effusion that migrated into the abdominal cavity. Considering that the patient's catheter was never removed it can be a possible source of infection. He had another catheter placed in the R lung that was eventually removed. CT abdomen/ pelvis on admission demonstrated the resolution of his R-side pleural effusion. He gets 1L of ascitic fluid drained from the migrated Pleurx catheter on . Prior to coming to the hospital it was last drained on Tuesday by his visiting nurse. He had a diagnostic and therapeutic paracentesis performed overnight. His ascitic fluid white count was 8222. Repeat paracentesis demonstrated a transudative ascitic fluid with SAAG > 1. His ascitic fluid culture grew GNR and he was started on Ceftazidime. Vancomycin was discontinued. * ID recommendations appreciated * GI recommendations appreciated * Continue Ceftazidime * Continue Metoclopramide for nausea * Follow up ascitic fluid culture results for identification of the pathogen and sensitivity results SHELBY on CKD most likely 2/2 dehydration in the setting of his CKD from PKD Patient is reported to have a baseline of 2-3. His Cr is trending up. On admission Cr was 4.3>>4.9. He was given 2L of IVF and is currently on an albumin infusion. * Monitor renal function * Continue IV Albumin 25 gm q8 * Continue NS IVF * Nephrology recommendations appreciated * Evin cath placement in a.m for dialysis History of PKD, Polycystic liver disease Patient reported he had an appt at [place] [facility] in which he was told he wouldn't receive a transplant until the resolution of his ascitic fluid. CT abd/pel demonstrated numerous cysts effectively replacing the normal hepatic and bilateral renal parenchyma * ECHO to r/o SHD or valvular abnormalities Hyperkalemia * Monitor potassium * Start 2g potassium restriction in diet DVT ppx: ALPS Problem List: 1. Polycystic kidney disease 2. Polycystic liver disease 3. Renal insufficiency 4. Peritonitis Pain Ratin Tomorrow's Labs & Rationales: CBC, Bundle Plan DVT/Prophylaxis: mechanical
[2017-03-24 08:00] VITALS: BP 120/70
--- NOTE | 2017-03-24 09:34 | RADIOLOGY REPORT ---
EXAMINATION: XR PORTABLE CHEST CLINICAL INFORMATION: Pigtail catheter. Pleural effusion. COMPARISON: Several prior chest x-rays, most recent of which is dated 03/23/2017. TECHNIQUE: Portable AP erect view of the chest was obtained. FINDINGS: The cardiomediastinal silhouette is within normal limits in size. Calcification and ectasia of the aorta is seen. Low lung volumes are noted. There is a pigtail catheter seen projected over the right lung base. Elevation of the right hemidiaphragm is seen and there may be a small subpulmonic pleural effusion. Mild subsegmental atelectasis is seen in the left CP angle. Lungs are otherwise unremarkable. No pneumothorax is seen. Bony structures are unremarkable. IMPRESSION: 1. Pigtail catheter is seen projected over the right lung base, presumably within a subpulmonic small pleural effusion. 2. Mild subsegmental atelectasis in the left CP angle. 3. Low lung volumes.
--- NOTE | 2017-03-24 09:35 | PN- Infect Dx ---
Subjective Subjective: Afebrile. He notes increased shortness of breath with right-sided chest pain. His abdominal pain has improved. Objective Last 24 Hrs of Vital Signs/I&O Vital Signs Date Time Temp Pulse Resp B/P B/P Pulse O2 O2 Flow FiO2 Mean Ox Delivery Rate 03/24 0400 99 Nasal 3.0L Cannula 03/24 0000 98.1 92 12 88/68 99 Nasal 3.0L Cannula 03/24 0000 99 Nasal 3.0L Cannula 03/23 2000 94 Nasal 3.0L Cannula 03/23 1600 97 Nasal 4.0L Cannula 03/23 1600 98.4 104 24 100/70 98 Nasal 4.0L Cannula 03/23 1300 92 Non 100% ReBreather Intake & Output 03/24 1600 03/24 0800 03/24 0000 Intake Total 200 112 Output Total 1200 1400 Balance -1000 -1288 Intake, IV 100 112 Intake, Oral 100 0 Number 0 0 Bowel Movements Output, Chest 900 1300 Tube Drainage Output, Urine 300 100 Physical Exam Other Physical Findings: He appears mildly uncomfortable, on nasal oxygen Lungs bronchial breath sounds at both bases; right sided pigtail catheter in place with 3150 mL output yesterday and 900 mL overnight Heart regular rhythm with no murmur Abdomen is markedly distended, mildly tender to palpation diffusely, with positive bowel sounds Extremities trace edema both lower extremities Results Last 24 Hours of Lab Results: Laboratory Tests 03/24 0440 Chemistry Sodium (137 - 145 mmol/L) 138 Potassium (3.5 - 5.1 mmol/L) 4.8 Chloride (98 - 107 mmol/L) 104 Carbon Dioxide (22 - 30 mmol/L) 15 L Anion Gap (5 - 16) 19 H BUN (9 - 20 mg/dL) 98 H Creatinine (0.7 - 1.2 mg/dL) 4.9 H Estimated GFR (>60 ml/min) 12 L Glucose (65 - 99 mg/dL) 82 Calcium (8.4 - 10.2 mg/dL) 7.8 L Phosphorus (2.5 - 4.5 mg/dL) 8.2 H Magnesium (1.6 - 2.3 mg/dL) 2.2 Total Bilirubin (0.2 - 1.3 mg/dL) 0.5 AST (17 - 59 U/L) 28 ALT (21 - 72 U/L) 37 Albumin (3.5 - 5.0 g/dL) 2.7 L Hematology CBC w Diff MAN DIFF ORDERED WBC (4.8 - 10.8 /CUMM) 8.0 RBC (4.70 - 6.10 /CUMM) 3.64 L Hgb (14.0 - 18.0 G/DL) 9.1 L Hct (42 - 52 %) 28.8 L MCV (80.0 - 94.0 FL) 78.9 L MCH (27.0 - 31.0 PG) 25.0 L RDW (11.5 - 14.5 %) 19.6 H Plt Count (130 - 400 /CUMM) 163 MPV (7.4 - 10.4 FL) 10.4 Segmented Neutrophils (42.2 - 75.2 %) 91 H Lymphocytes (20.5 - 51.1 %) 3 L Monocytes (1.7 - 9.3 %) 6 Platelet Estimate (ADEQUATE) ADEQUATE Polychromasia 1+ Hypochromic-Microcytic 1+ Poikilocytosis 2+ Ovalocytes 1+ [place] Cells 1+ PUBS MCHC (33.0 - 37.0 G/DL) 31.6 L Other Body Source Fld Total RBCs Counted (%) 100 Last 24 Hours of Clarke Results: Ascitic fluid culture March 22 positive for Pseudomonas sensitive to all antibiotics tested and Escherichia coli resistant to Ampicillin and Bactrim Urine culture March 22 negative Blood cultures 2 March 22 negative Recent Imaging Studies: Chest x-ray March 24 reveals resolution of the right pleural effusion, with clear lungs Assessment/Plan Impression: Stable status post removal of the migrated Pleurx catheter yesterday, which was followed by a steady flow of ascitic fluid through the diaphragm resulting in a large right pleural effusion, for which a pigtail catheter was placed yesterday afternoon, with chest x-ray today revealing marked improvement. He remains afebrile with white blood cell count normal on Ceftazidime for gram-negative ( Escherichia coli and Pseudomonas) peritonitis secondary to the Pleurx catheter, initially inserted 8 months prior to admission, and which had migrated into the peritoneal cavity. His renal function continues to deteriorate, most likely secondary to sepsis. Suggestion: 1. Further management of his chest tube and apparent fistula per Thoracic surgery 2. Continue Ceftazidime
--- NOTE | 2017-03-24 11:01 | RADIOLOGY REPORT ---
EXAMINATION: XR CHEST CLINICAL INFORMATION: Respiratory distress. COMPARISON: 03/24/2017. TECHNIQUE: 2 views of the chest were obtained. FINDINGS: The lung volumes are decreased. A pigtail catheter is present at the right lung base and has a kink at the level of the rib margin. Evidence of linear bibasilar atelectasis. No pneumothorax or significant pleural effusions. The mid and upper lungs are clear. IMPRESSION: Low lung volumes with bibasilar subsegmental atelectasis. No significant pleural effusion or evidence of pneumothorax. A kink is noted in the pigtail catheter at the rib margin.
--- NOTE | 2017-03-24 11:01 | PN- Nephrology ---
Assessment/Plan Assessment: 1. AK I superimposed upon advanced chronic kidney disease secondary to autosomal dominant polycystic kidney disease. His urine output is quite concerning. Suspect that this is either severe prerenal azotemia mediated by intravascular volume depletion related both to the ascites and to the pleural accumulation or perhaps ATN related to sepsis. That should inject 3 of his renal function is quite concerning. He does not need dialysis now. Suspect however that he will within the next 3 days and lasts his serum creatinine and urine output begin to improve. 2. Peritonitis/infected catheter. The Pleurx catheter was above the liver. This however led to perhaps is having a rent in the diaphragm with having fluid migrate into the pleural space or perhaps unmasked a rent that was already there. 3. His presentation prior to this hospital stay is most perplexing. On imaging , his liver, as well as his kidneys, appears to be almost completely replaced by cysts. His physiology seems to be almost that of a cirrhotic with portal hypertension. For this reason, given his current issue, it is tempting to continue the salt poor albumin every 8 hours at 25 g, along with IV normal saline, with the possibility of adding midodrine and octreotide. There is no data for this. 4. Of note, his weight today is listed as 143.4 pounds by a standing scale. Yesterday was listed as 163. Suspect that the scale yesterday was not properly zeroed. Suggestion: 1. Would plan on an Evin catheter tomorrow 2. Make nothing by mouth after midnight 3. Please check hepatitis B surface antibody and hepatitis B surface antigen 4. He may benefit from increasing his IV fluids. 5. Please begin Renvela 2 with each meal 6. Increase the IV fluids to 75 mL per hour 7. Would not yet favor a Hall catheter. Instead, would check a post void residual. 8. The possibility of renal replacement therapy was discussed with the patient and his . Subjective Subjective: Patient says his breathing is better C chest tube was placed. His breathing is actually better yesterday than today. Objective Vital Signs and I&Os Vital Signs Date Time Temp Pulse Resp B/P B/P Pulse O2 O2 Flow FiO2 Mean Ox Delivery Rate 03/24 0400 99 Nasal 3.0L Cannula 03/24 0000 98.1 92 12 88/68 99 Nasal 3.0L Cannula 03/24 0000 99 Nasal 3.0L Cannula 03/23 1999 94 Nasal 3.0L Cannula 03/23 1600 97 Nasal 4.0L Cannula 03/23 1600 98.4 104 24 100/70 98 Nasal 4.0L Cannula 03/23 1300 92 Non 100% ReBreather Intake & Output 03/24 1600 03/24 0400 03/23 1600 03/23 0400 03/22 1600 03/22 0400 Intake Total 780 230 3619 1149 1936 Output Total 1200 1400 1999 1050 Balance -1000 -1288 -815 1149 886 Intake, Blood 200 Product Intake, IV 352 158 9550 669 1436 Intake, Oral 100 0 480 300 Number 0 0 1 Bowel Movements Output, Chest 900 1300 1850 Tube Drainage Output, 1000 Drainage Output, Urine 300 100 150 50 Patient 163 lb 159 lb 150 lb Weight Weight Bed scale Measurement Method Physical Exam: General Appearance: well developed/nourished, no apparent distress, alert, awake , thin Head: atraumatic, normal appearance Eyes: Bilateral: PERRL, EOMI, pale conjunctivae. Ears, Nose, Throat: normal pharynx, normal ENT inspection, hearing grossly normal Neck: normal inspection, supple, full range of motion Respiratory: normal breath sounds, chest non-tender, lungs clear Cardiovascular: regular rate/rhythm Gastrointestinal: normal bowel sounds, distention, hepatomegaly, palpable cysts, caput medusae Back: normal inspection, no vertebral tenderness Extremities: normal inspection Neurologic/Psych: awake, alert, oriented x 3, No grosss neurologic deficit Cranial Nerves: normal hearing, normal speech, PERRL Skin: intact, normal color, warm/dry Current Medications: Current Medications Sig/Lola Start time Last Medication Dose Route Stop Time Status Admin Acetaminophen 325 MG Q4P PRN 03/21 2115 AC 03/23 PO 0020 Albumin Human 25 GM Q8 03/23 1400 DC 03/24 IV 03/24 0601 0610 Ceftazidime 1,000 MG Q12H 03/23 0830 AC 03/23 IV 2020 Hydrocodone Bitart/ 1 TAB Q6P PRN 03/21 2100 AC Acetaminophen PO Hydromorphone HCl 2 MG .STK-MED ONE 03/23 1058 DC IM 03/23 1059 Metoclopramide HCl 10 MG .STK-MED ONE 03/23 1657 DC IM 03/23 1658 Metoclopramide HCl 10 MG Q6P PRN 03/21 2315 AC 03/23 IV 1657 Morphine Sulfate 2 MG Q4P PRN 03/21 2100 AC 03/24 IV 0452 Ondansetron HCl 4 MG .STK-MED ONE 03/23 1226 DC IM 03/23 1227 Results Pertinent Lab Results: Laboratory Tests 03/24 03/23 0440 0430 Chemistry Sodium (137 - 145 mmol/L) 138 136 L Potassium (3.5 - 5.1 mmol/L) 4.8 5.0 Chloride (98 - 107 mmol/L) 104 104 Carbon Dioxide (22 - 30 mmol/L) 15 L 13 L Anion Gap (5 - 16) 19 H 19 H BUN (9 - 20 mg/dL) 98 H 92 H Creatinine (0.7 - 1.2 mg/dL) 4.9 H 4.6 H Estimated GFR (>60 ml/min) 12 L 13 L Glucose (65 - 99 mg/dL) 82 90 Calcium (8.4 - 10.2 mg/dL) 7.8 L 7.7 L Phosphorus (2.5 - 4.5 mg/dL) 8.2 H 7.9 H Magnesium (1.6 - 2.3 mg/dL) 2.2 2.3 Total Bilirubin (0.2 - 1.3 mg/dL) 0.5 0.5 AST (17 - 59 U/L) 28 27 ALT (21 - 72 U/L) 37 42 Albumin (3.5 - 5.0 g/dL) 2.7 L 2.8 L Hematology CBC w Diff MAN DIFF ORDERED MAN DIFF ORDERED WBC (4.8 - 10.8 /CUMM) 8.0 8.3 RBC (4.70 - 6.10 /CUMM) 3.64 L 3.78 L Hgb (14.0 - 18.0 G/DL) 9.1 L 9.6 L Hct (42 - 52 %) 28.8 L 29.9 L MCV (80.0 - 94.0 FL) 78.9 L 79.1 L MCH (27.0 - 31.0 PG) 25.0 L 25.4 L RDW (11.5 - 14.5 %) 19.6 H 19.7 H Plt Count (130 - 400 /CUMM) 163 187 MPV (7.4 - 10.4 FL) 10.4 10.5 H Segmented Neutrophils (42.2 - 75.2 %) 91 H 92 H Band Neutrophils (0.0 - 5.0 %) 1 Lymphocytes (20.5 - 51.1 %) 3 L 4 L Monocytes (1.7 - 9.3 %) 6 2 Metamyelocytes (0.0 - 1.0 %) 1 Platelet Estimate (ADEQUATE) ADEQUATE ADEQUATE Polychromasia 1+ Hypochromic-Microcytic 1+ 1+ Poikilocytosis 2+ Microcytic Cells 1+ Target Cells RARE Ovalocytes 1+ Ahsan Cells 1+ 1+ Elliptocytes FEW PUBS MCHC (33.0 - 37.0 G/DL) 31.6 L 32.0 L Other Body Source Fld Total RBCs Counted (%) 100 Toxicology Random Vancomycin (ug/ml) 9.2 03/22 03/22 03/22 2049 1700 1645 Chemistry Sodium (137 - 145 mmol/L) 138 Potassium (3.5 - 5.1 mmol/L) 5.1 Chloride (98 - 107 mmol/L) 102 Carbon Dioxide (22 - 30 mmol/L) 17 L Anion Gap (5 - 16) 19 H BUN (9 - 20 mg/dL) 90 H Creatinine (0.7 - 1.2 mg/dL) 4.4 H Estimated GFR (>60 ml/min) 13 L Glucose (65 - 99 mg/dL) 92 Calcium (8.4 - 10.2 mg/dL) 7.7 L Phosphorus (2.5 - 4.5 mg/dL) 7.5 H Magnesium (1.6 - 2.3 mg/dL) 1.8 Total Bilirubin (0.2 - 1.3 mg/dL) 0.5 AST (17 - 59 U/L) 27 ALT (21 - 72 U/L) 34 Troponin I Cancelled Albumin (3.5 - 5.0 g/dL) 3.3 L Coagulation PT (9.4 - 12.5 SEC) 15.3 H INR (0.90 - 1.17) 1.46 H APTT (25 - 37 SEC) 30 Hematology CBC w Diff MAN DIFF ORDERED WBC (4.8 - 10.8 /CUMM) 7.5 RBC (4.70 - 6.10 /CUMM) 4.00 L Hgb (14.0 - 18.0 G/DL) 10.1 L Hct (42 - 52 %) 31.9 L MCV (80.0 - 94.0 FL) 79.7 L MCH (27.0 - 31.0 PG) 25.1 L RDW (11.5 - 14.5 %) 20.5 H Plt Count (130 - 400 /CUMM) 195 MPV (7.4 - 10.4 FL) 9.5 Segmented Neutrophils (42.2 - 75.2 %) 79 H Band Neutrophils (0.0 - 5.0 %) 10 H Lymphocytes (20.5 - 51.1 %) 6 L Monocytes (1.7 - 9.3 %) 4 Eosinophils (0 - 5.0 %) 1 Platelet Estimate (ADEQUATE) ADEQUATE Polychromasia 1+ Hypochromic-Microcytic 1+ Poikilocytosis 1+ Anisocytosis 1+ PUBS MCHC (33.0 - 37.0 G/DL) 31.5 L 03/22 03/22 03/22 1615 1533 UNK Hematology Lymphocytes (%) 1 % Normal PMNs (%) 91 Misc Hematology Test (%) Other Body Source Fluid WBC (0 - 5 /CUMM) 4250 H Fld Total RBCs Counted (0 /CUMM) 475 H Fluid Glucose (mg/dL) 78 Fluid Total Protein (g/dL) Cancelled 3.8 Fluid Albumin (g/dL) 1.8 Fluid LDH (U/L) 578 03/22 03/22 03/22 03/22 0400 0400 0345 0345 Chemistry Lactic Acid (0.7 - 2.1 mmol/L) 1.7 Alpha Fetoprotein Pending Urines Urinalysis MOD H Urine Color (YEL,AMB,STR) YEL Urine Clarity (CLEAR) HAZY H Urine pH (5.0 - 8.0) 5.5 Ur Specific [place] (1.001 - 1.035) 1.025 Urine Protein (NEG,<30 MG/DL) 30 H Urine Ketones (NEG) NEG Urine Nitrite (NEG) NEG Urine Bilirubin (NEG) NEG Urine Urobilinogen (0.1 - 1.0 EU/dl) 0.2 Ur Leukocyte Esterase (NEG) NEG Ur Microscopic SEDIMENT EXAMINED Urine RBC (0 - 5 /HPF) RARE Urine WBC (0 - 2 /HPF) 1-3 H Ur Epithelial Cells (NONE,FEW) RARE Urine Hemoglobin (NEG) NEG Urine Osmolality (300 - 1000 MOSM/KG) 325 Ur Random Creatinine (mg/dL) 127.9 Ur Random Sodium (30 - 90 mmol/L) 38 Ur Random Potassium (mmol/L) 43.6 Fraction Sodium Excret (<1% %) 0.9 Urine Glucose (N MG/DL) NEG 03/22 03/22 03/21 0345 0145 2311 Chemistry Sodium (137 - 145 mmol/L) 139 Potassium (3.5 - 5.1 mmol/L) 5.6 H Chloride (98 - 107 mmol/L) 104 Carbon Dioxide (22 - 30 mmol/L) 17 L Anion Gap (5 - 16) 18 H BUN (9 - 20 mg/dL) 86 H Creatinine (0.7 - 1.2 mg/dL) 4.3 H Estimated GFR (>60 ml/min) 14 L Glucose (65 - 99 mg/dL) 71 Lactic Acid (0.7 - 2.1 mmol/L) 2.3 H Calcium (8.4 - 10.2 mg/dL) 7.9 L Phosphorus (2.5 - 4.5 mg/dL) 7.8 H Magnesium (1.6 - 2.3 mg/dL) 2.1 Total Bilirubin (0.2 - 1.3 mg/dL) 0.6 AST (17 - 59 U/L) 27 ALT (21 - 72 U/L) 31 Albumin (3.5 - 5.0 g/dL) 2.8 L Hematology CBC w Diff MAN DIFF ORDERED WBC (4.8 - 10.8 /CUMM) 7.5 RBC (4.70 - 6.10 /CUMM) 3.97 L Hgb (14.0 - 18.0 G/DL) 10.2 L Hct (42 - 52 %) 31.9 L MCV (80.0 - 94.0 FL) 80.5 MCH (27.0 - 31.0 PG) 25.8 L RDW (11.5 - 14.5 %) 19.6 H Plt Count (130 - 400 /CUMM) 224 MPV (7.4 - 10.4 FL) 10.6 H Segmented Neutrophils (42.2 - 75.2 %) 64 Band Neutrophils (0.0 - 5.0 %) 17 H Lymphocytes (20.5 - 51.1 %) 14 L Monocytes (1.7 - 9.3 %) 5 % Normal PMNs (%) 90 Platelet Estimate (ADEQUATE) ADEQUATE Hypochromic-Microcytic 1+ Poikilocytosis 2+ Anisocytosis 1+ PUBS MCHC (33.0 - 37.0 G/DL) 32.1 L Other Body Source Fluid WBC (0 - 5 /CUMM) 8222 H Fld Mesothelial Cells (%) 10 Fld Total RBCs Counted (0 /CUMM) 794 H 03/21 03/21 2115 1513 Blood Gas pH (7.35 - 7.45 PH) 7.32 L pCO2 (35 - 45 TORR) 29 L pO2 (80 - 100 TORR) 96 HCO3 (21 - 28 MEQ/L) 15 L ABG O2 Sat (Measured) (>96.0 %) 97.0 P-50 (Temp Corrected) N Carboxyhemoglobin (1.5 - 5.0 %) 0.4 L O2 Concentration % R/A Temperature (97.0 - 100.0 FARH) 97.3 Chemistry Sodium (137 - 145 mmol/L) 138 Potassium (3.5 - 5.1 mmol/L) 5.8 H Chloride (98 - 107 mmol/L) 104 Carbon Dioxide (22 - 30 mmol/L) 14 L Anion Gap (5 - 16) 19 H BUN (9 - 20 mg/dL) 81 H Creatinine (0.7 - 1.2 mg/dL) 4.3 H Estimated GFR (>60 ml/min) 14 L BUN/Creatinine Ratio (7 - 25 %) 18.8 Glucose (65 - 99 mg/dL) 90 Calcium (8.4 - 10.2 mg/dL) 8.6 Phosphorus (2.5 - 4.5 mg/dL) 7.8 H Magnesium (1.6 - 2.3 mg/dL) 1.2 L Total Bilirubin (0.2 - 1.3 mg/dL) 0.8 GGT (15 - 73 U/L) 203 H AST (17 - 59 U/L) 22 ALT (21 - 72 U/L) 24 Alkaline Phosphatase (< 127 U/L) 193 H Total Protein (6.3 - 8.2 g/dL) 6.2 L Albumin (3.5 - 5.0 g/dL) 3.0 L Globulin (1.9 - 4.2 gm/dL) 3.2 Albumin/Globulin Ratio (1.1 - 2.2 %) 0.9 L Amylase (30 - 110 U/L) 72 Lipase (23 - 300 U/L) 28 Hematology CBC w Diff MAN DIFF ORDERED WBC (4.8 - 10.8 /CUMM) 5.3 RBC (4.70 - 6.10 /CUMM) 4.69 L Hgb (14.0 - 18.0 G/DL) 11.9 L Hct (42 - 52 %) 37.3 L MCV (80.0 - 94.0 FL) 79.6 L MCH (27.0 - 31.0 PG) 25.5 L RDW (11.5 - 14.5 %) 19.5 H Plt Count (130 - 400 /CUMM) 281 MPV (7.4 - 10.4 FL) 11.1 H Gran % (42.2 - 75.2 %) 80.2 H Lymphocytes % (20.5 - 51.1 %) 10.6 L Monocytes % (1.7 - 9.3 %) 9.1 Eosinophils % (0 - 5 %) 0.1 Basophils % (0.0 - 2.0 %) 0 Absolute Granulocytes (1.4 - 6.5 /CUMM) 4.2 Segmented Neutrophils (42.2 - 75.2 %) 64 Band Neutrophils (0.0 - 5.0 %) 24 H Absolute Lymphocytes (1.2 - 3.4 /CUMM) 0.6 L Lymphocytes (20.5 - 51.1 %) 5 L Monocytes (1.7 - 9.3 %) 7 Absolute Monocytes (0.10 - 0.60 /CUMM) 0.5 Absolute Eosinophils (0.0 - 0.7 /CUMM) 0 Absolute Basophils (0.0 - 0.2 /CUMM) 0 Platelet Estimate (ADEQUATE) ADEQUATE Polychromasia Hypochromic-Microcytic 1+ Anisocytosis 1+ Microcytic Cells 1+ PUBS MCHC (33.0 - 37.0 G/DL) 32.0 L Miscellaneous Phlebotomy Draw Site RIGHT RADIAL
--- NOTE | 2017-03-24 11:44 | ECHOCARDIOGRAM REPORT ---
AVNI DE SANTIAGO Age: 66 : 1950 Gender: M Exam Date: 03/22/2017 16:55 Exam Location: [facility] Ht (in): 66 Wt (lb): 159 BSA: 1.84 BP: 100 / 64 Ordering Physician: Damian Ohara MD Referring Physician: Krysten Link MD Technologist: Yaquelin Juárez [facility] Room Number: 112 Indications: CHEST PAIN Rhythm: Sinus Technical Quality: Fair, Technically difficult study FINDINGS Left Ventricle Normal size left ventricle. No obvious regional wall motion abnormalities. Normal left ventricular ejection fraction estimated at 55-60%. Right Ventricle Right ventricle not well visualized, grossly normal. Right Atrium Right atrium not well visualized, grossly normal. Left Atrium Left atrial size at the upper limits of normal. Mitral Valve Mitral valve thickened. Mild prolapse of the posterior mitral valve leaflet. Mild mitral regurgitation. Aortic Valve Trileaflet aortic valve. Diffuse thickening (sclerosis) of the aortic valve cusps without reduced excursion. No aortic stenosis. No aortic regurgitation. Tricuspid Valve Tricuspid valve not well visualized, grossly normal. Tricuspid valve not well visualized, grossly normal. Physiologic tricuspid regurgitation. Pulmonic Valve Pericardium Small pericardial effusion. Great Vessels Aortic root and proximal ascending aorta not well visualized, grossly normal. CONCLUSIONS 1. This was a technically difficult study due to the patient's body habitus. 2. Aortic sclerosis is present with no valvular stenosis or insufficiency. 3. Mitral leaflet thickening is present with fibrosis of the chordal structures and mild systolic prolapse of the posterior leaflet with mild mitral insufficiency 4. a very small pericardial effusion is present which is hemodynamically insignificant. 5. The left ventricle chamber size and systolic function appear normal. There are no significant resting wall motion abnormalities. 6. The right heart structures are not well assessed. Minimal tricuspid insufficiency is present. The right ventricular systolic pressure could not be assessed by this examination. Krysten Link M.D. (Electronically Signed) Final Date: 24 March 2017 11:43 MEASUREMENTS (Male / Female) Normal Values 2D ECHO LV Diastolic Diameter PLAX 4.3 cm 4.2 - 5.9 / 3.9 - 5.3 cm LV Systolic Diameter PLAX 2.4 cm 2.1 - 4.0 cm LV Fractional Shortening PLAX 44.2 % 25 - 46 % LV Ejection Fraction 2D Teich 75.7 % IVS Diastolic Thickness 1.0 cm LVPW Diastolic Thickness 1.1 cm LV Relative Wall Thickness 0.5 RV Internal Dim ED PLAX 2.3 cm 1.9 - 3.8 cm LVOT Diameter 2.1 cm Aortic Root Diameter 3.6 cm LA Systolic Diameter LX 4.8 cm 3.0 - 4.0 / 2.7 - 3.8 cm LA Volume 26.0 cm 18 - 58 / 22 - 52 cm Ascending Aorta Diameter 3.5 cm DOPPLER AV Peak Velocity 153.0 cm/s AV Peak Gradient 9.4 mmHg AV Mean Velocity 89.1 cm/s AV Mean Gradient 4.0 mmHg AV Velocity Time Integral 20.0 cm LVOT Peak Velocity 135.0 cm/s LVOT Peak Gradient 7.3 mmHg LVOT Mean Velocity 88.0 cm/s LVOT Mean Gradient 4.0 mmHg LVOT Velocity Time Integral 19.1 cm LVOT Stroke Volume 66.2 cm AV Area Cont Eq vti 3.3 cm AV Area Cont Eq pk 3.1 cm MV Peak Velocity 122.0 cm/s MV Peak Gradient 6.0 mmHg MV Mean Velocity 68.4 cm/s MV Mean Gradient 2.0 mmHg Mitral E Point Velocity 62.7 cm/s Mitral A Point Velocity 102.0 cm/s Mitral E to A Ratio 0.6 MV PHT Velocity 68.8 cm/s MV Deceleration [place] 347.0 cm/s MV Pressure Half Time 59.5 ms MV Area PHT 3.7 cm MV Deceleration Time 137.0 ms PV Peak Velocity 126.0 cm/s PV Peak Gradient 6.4 mmHg PV Mean Velocity 79.8 cm/s PV Mean Gradient 3.0 mmHg PV Velocity Time Integral 17.3 cm LV E' Lateral Velocity 16.9 cm/s Mitral E to LV E' Lateral Ratio 3.7 LV E' Septal Velocity 4.7 cm/s Mitral E to LV E' Septal Ratio 13.3
[2017-03-24 16:00] VITALS: BP 120/80
--- NOTE | 2017-03-24 16:35 | PN- Thoracic Surgery ---
Subjective Subjective: This morning the patient still had reasonable respiratory complaints. A chest x -ray had not been done. Subsequent chest x-rays were done showing significant resolution of the pleural effusion process. This afternoon he seems much more comfortable and breathing a little better. His abdominal pain has subsided. Objective Vital Signs and I&Os Vital Signs Date Time Temp Pulse Resp B/P B/P Pulse O2 O2 Flow FiO2 Mean Ox Delivery Rate 03/24 1600 98.5 74 18 120/80 96 Nasal 3.0L Cannula 03/24 799 100 Nasal 3.0L Cannula 03/24 799 98.4 102 21 120/70 100 Nasal 3.0L Cannula 03/24 0400 99 Nasal 3.0L Cannula 03/24 0000 98.1 92 12 88/68 99 Nasal 3.0L Cannula 03/24 0000 99 Nasal 3.0L Cannula 03/23 1999 94 Nasal 3.0L Cannula Intake & Output 03/24 1600 03/24 0800 03/24 0000 03/23 1600 03/23 0800 03/23 0000 Intake Total 370 200 112 278 599 4973 Output Total 160 1200 1400 1850 150 Balance 210 -1000 -1288 -4062 235 8660 Intake, IV 20 100 112 773 412 669 Intake, Oral 350 100 0 480 Number 0 0 0 Bowel Movements Output, Chest 60 900 1300 1850 Tube Drainage Output, Urine 100 300 100 150 Patient 143 lb 163 lb 164 lb Weight Weight Bed scale Measurement Method Physical Exam: On examination he appears comfortable and is breathing at a regular rate. His breath sounds are clear bilaterally. His pleural catheter had drained 4 L overnight. From this morning until this afternoon there is less than 100 mL of drainage. The fluid is clear serous fluid. Current Medications: Current Medications Sig/Lola Start time Last Medication Dose Route Stop Time Status Admin Acetaminophen 325 MG Q4P PRN 03/21 2115 AC 03/23 PO 0020 Albumin Human 25 GM Q8 03/23 1400 DC 03/24 IV 03/24 0601 0610 Ceftazidime 1,000 MG Q12H 03/23 0830 AC 03/24 IV 0830 Hydrocodone Bitart/ 1 TAB Q6P PRN 03/21 2100 AC Acetaminophen PO Metoclopramide HCl 10 MG .STK-MED ONE 03/23 1657 DC IM 03/23 165 Metoclopramide HCl 10 MG Q6P PRN 03/21 2315 AC 03/24 IV 1020 Morphine Sulfate 2 MG Q4P PRN 03/21 2100 AC 03/24 IV 1000 Sevelamer Carbonate 1,600 MG WITH MEALS 03/24 1700 AC PO Sodium Chloride 1,000 ML Q13H 03/24 1445 AC IV Results Last 48 Hours of Labs: Laboratory Tests 03/24 03/23 0440 0430 Chemistry Sodium (137 - 145 mmol/L) 138 136 L Potassium (3.5 - 5.1 mmol/L) 4.8 5.0 Chloride (98 - 107 mmol/L) 104 104 Carbon Dioxide (22 - 30 mmol/L) 15 L 13 L Anion Gap (5 - 16) 19 H 19 H BUN (9 - 20 mg/dL) 98 H 92 H Creatinine (0.7 - 1.2 mg/dL) 4.9 H 4.6 H Estimated GFR (>60 ml/min) 12 L 13 L Glucose (65 - 99 mg/dL) 82 90 Calcium (8.4 - 10.2 mg/dL) 7.8 L 7.7 L Phosphorus (2.5 - 4.5 mg/dL) 8.2 H 7.9 H Magnesium (1.6 - 2.3 mg/dL) 2.2 2.3 Total Bilirubin (0.2 - 1.3 mg/dL) 0.5 0.5 AST (17 - 59 U/L) 28 27 ALT (21 - 72 U/L) 37 42 Albumin (3.5 - 5.0 g/dL) 2.7 L 2.8 L Hematology CBC w Diff MAN DIFF ORDERED MAN DIFF ORDERED WBC (4.8 - 10.8 /CUMM) 8.0 8.3 RBC (4.70 - 6.10 /CUMM) 3.64 L 3.78 L Hgb (14.0 - 18.0 G/DL) 9.1 L 9.6 L Hct (42 - 52 %) 28.8 L 29.9 L MCV (80.0 - 94.0 FL) 78.9 L 79.1 L MCH (27.0 - 31.0 PG) 25.0 L 25.4 L RDW (11.5 - 14.5 %) 19.6 H 19.7 H Plt Count (130 - 400 /CUMM) 163 187 MPV (7.4 - 10.4 FL) 10.4 10.5 H Segmented Neutrophils (42.2 - 75.2 %) 91 H 92 H Band Neutrophils (0.0 - 5.0 %) 1 Lymphocytes (20.5 - 51.1 %) 3 L 4 L Monocytes (1.7 - 9.3 %) 6 2 Metamyelocytes (0.0 - 1.0 %) 1 Platelet Estimate (ADEQUATE) ADEQUATE ADEQUATE Polychromasia 1+ Hypochromic-Microcytic 1+ 1+ Poikilocytosis 2+ Microcytic Cells 1+ Target Cells RARE Ovalocytes 1+ [place] Cells 1+ 1+ Elliptocytes FEW PUBS MCHC (33.0 - 37.0 G/DL) 31.6 L 32.0 L Other Body Source Fld Total RBCs Counted (%) 100 Serology Hepatitis A IgM Ab (NONREACTIVE) NONREACTIVE Hep Bs Antigen (NONREACTIVE) NONREACTIVE Hep Bs Antibody (NONREACTIVE) NONREACTIVE Hep B Core IgM Ab Conf (NONREACTIVE) NONREACTIVE Hepatitis C Antibody (NONREACTIVE) NONREACTIVE Toxicology Random Vancomycin (ug/ml) 9.2 03/22 03/22 03/22 2049 1700 1645 Chemistry Sodium (137 - 145 mmol/L) 138 Potassium (3.5 - 5.1 mmol/L) 5.1 Chloride (98 - 107 mmol/L) 102 Carbon Dioxide (22 - 30 mmol/L) 17 L Anion Gap (5 - 16) 19 H BUN (9 - 20 mg/dL) 90 H Creatinine (0.7 - 1.2 mg/dL) 4.4 H Estimated GFR (>60 ml/min) 13 L Glucose (65 - 99 mg/dL) 92 Calcium (8.4 - 10.2 mg/dL) 7.7 L Phosphorus (2.5 - 4.5 mg/dL) 7.5 H Magnesium (1.6 - 2.3 mg/dL) 1.8 Total Bilirubin (0.2 - 1.3 mg/dL) 0.5 AST (17 - 59 U/L) 27 ALT (21 - 72 U/L) 34 Troponin I Cancelled Albumin (3.5 - 5.0 g/dL) 3.3 L Coagulation PT (9.4 - 12.5 SEC) 15.3 H INR (0.90 - 1.17) 1.46 H APTT (25 - 37 SEC) 30 Hematology CBC w Diff MAN DIFF ORDERED WBC (4.8 - 10.8 /CUMM) 7.5 RBC (4.70 - 6.10 /CUMM) 4.00 L Hgb (14.0 - 18.0 G/DL) 10.1 L Hct (42 - 52 %) 31.9 L MCV (80.0 - 94.0 FL) 79.7 L MCH (27.0 - 31.0 PG) 25.1 L RDW (11.5 - 14.5 %) 20.5 H Plt Count (130 - 400 /CUMM) 195 MPV (7.4 - 10.4 FL) 9.5 Segmented Neutrophils (42.2 - 75.2 %) 79 H Band Neutrophils (0.0 - 5.0 %) 10 H Lymphocytes (20.5 - 51.1 %) 6 L Monocytes (1.7 - 9.3 %) 4 Eosinophils (0 - 5.0 %) 1 Platelet Estimate (ADEQUATE) ADEQUATE Polychromasia 1+ Hypochromic-Microcytic 1+ Poikilocytosis 1+ Anisocytosis 1+ PUBS MCHC (33.0 - 37.0 G/DL) 31.5 L Assessment/Plan Assessment/Plan This is an exceptionally complicated and difficult situation given the combined renal failure along with what appears to be portal hypertension liver failure. As it stands right now the patient has had minimal drainage into his chest and this is probably secondary to a decreased abdominal pressure. Hopefully with this type of situation weakness achieve some degree of sealing. My only similar experience with this is with a peritoneal dialysis associated hydrothorax. There have been cases that I have had to treat operatively with closure of the connection and I have had cases that have closed themselves with changes in the dialysate management. If we can keep him up right is much as possible and keep his abdomen decompressed then based upon the way he is behaving now there might be a good chance of the ceiling. I am obviously reluctant to do any operative intervention given the status of his kidneys and the fact that he may end up on dialysis this weekend. I have spoken with Dr. Corey and the plan will be for continued pleural fluid decompression with the catheter that is in place. We'll continue this catheter through the weekend into next week and at that point we can reassess. If operative intervention is necessary I Think it can be done via small cutdown at the point where the Pleurx catheter entered through the abdominal and thoracic musculature. My concerns are that because of his poor tissue status that a suture ligation of any communication will not hold and he will continue to leak fluid. Best option right now his abdominal decompression and upright status. He certainly is improved clinically in the last 24 hours.
--- NOTE | 2017-03-24 17:28 | Event Note ---
Event Note Event Note: S: At approximately 17:20 patient was eating moments later became tachycardic to 180s. Patient was asymptomatic. Patient examined by housestaff. Leads were checked and in place. CV: RRR. Lungs: CTAB. Stat Trop, ECG, BEP ordered. B: Mr. Tijerina is a 66 yo m with a PMH of PKD, Polycystic liver disease, portal HTN, HTN, HLD, umbilical hernia repair, colon ademona, GERD who presented to the ED with NVD with progressively worsened abdominal distention from ascitic fluid. A/R: ECG showed ? SVT without identifiable P waves vs Sinus tach vs Afib. HR 181 IV Metoprolol 5 mg given. HR dropped to upper 140s, now 94. BP 112/80s. Cardiology-Dr. Link service informed. Attending-Dr. Moreland made aware. Call back from Dr. Menchaca @ 17:51. Agrees with the plan. Will continue to monitor Patient remains stable and asymptomatic. Family at bedside. If patient becomes tachycardic consider Lopressor vs. Adenosine and inform Cardiology for further recommendations
--- NOTE | 2017-03-24 18:32 | PN- Gastroenterology ---
Assessment/Plan Assessment/Recommendations: (*Covering GI consult per Dr. Springer of 03/22/17 reviewed, along with extensive past records). 66 y/o male, HTN, non-DM, HLD, anxiety, resection BC Ca (face), B/L IH repair, umbilical hernia repair, history of renal stones (? type), remote history of colon adenoma- removed 07/19/01, chronic GERD- dependent on Omeprazole 40 mg daily x years, & PCKD. There is no family history of GI malignancy, IBD, or inherited liver disease. Positive family history of PCKD (all 3 children- 1 son & 2 dtrs). History of colon adenoma & chronic microcytic anemia. He is followed by Dr. Hearn fo renal, Dr. Lehman for primary care, Dr. Hearn for nephrology, Dr. Moreland for pulmonary, Dr. Carson for cardiothoracic surgery, & Dr. Link for cardiology. *Additionally, he saw the [facility] for evaluation of his PCKD, regarding his kidneys & potentially his liver. The transplant notes did not make mention of his liver, and he was declined for a renal transplant, for unknown reasons. His Cr had worsened, peaking at 3.1 earlier in 2017, stabilizing in the upper 2's. The patient was recently found to have a right pleural effusion in 06/2016, which was tapped, revealing a benign transudate. He reportedly had a normal echocardiogram at Dr. Link in 06/2016. 07/12/16: CT chest without contrast- moderate to large right pleural effusion with left shift of the mediastinum, no infiltrate, no suspicious pulmonary nodules. 07/14/16: Right PleurX catheter placed, which migrated into the abdominal cavity. A new PleurX catheter was placed in the right lung, after the first one had migrated, but both remain. Apparently, the abdominal catheter is capped. The previously had 1L fluid drained from the right lung M, W, F with IV SPA infusion, as occasionally he dropped his blood pressure with this. The right pleural catheter was pulled, and he was getting 1 L of ascites removed from his indwelling abdominal catheter each week. 10/01/16: albumin 4.2, globulin 2.6, TBil 0.5, alk phos 146, AST 15, ALT 19 10/21/16: PT 13.8, INR 1.32 10/28/16: WBC 8.1, H/H 10.6/33.1, MCV 78.9, RDW 19.5, PLT 183, BUN/Cr 56/2.7, GFR 24, Na 144, K 5.0, HCO3 20, AG 16 11/05/16: Ascitic tap- elevated SAAG 1.2 (serum albumin 3.5, BF albumin 2.3), but no BF protein sent, nor cell count, gram stain, culture, or cytology. *Please note, the patient's alk phos has fluctuated back to 2004. 10/05/10: +GGT 319. 02/17/05: Genetic testing HHC (H63D/C282Y)- negative. 02/20/05: MONICA- neg 1:40, anti-LKM Ab- neg, anti-smooth muscle Ab- neg, AMA < 0.1 ; Hep A Ab, Hep Bs Ag, Hep B core Ab, Hep Bs Ab & Hep C Ab- all neg; Fe 58, TIBC 401, Fe sat 14.5%, ferritin 119.3. The patient denied any pruritus, jaundice, dark urine, light stool, confusion, or peripheral edema. His abdominal girth was stable. He denied any blood transfusions, needle sticks, tattoos, risk factors for HIV, or IVDA. the patient 's anemia was somewhat chronic. He denied any history of beta thalassemia. He denied any aspirin or NSAID use. He denied any chest pain or shortness of breath. He admitted to mild dyspnea on exertion, related to his right pleural effusion. He denied any hemoptysis, fevers, or chills. He had chronic GERD, stable yet dependent on Omeprazole 40 mg daily. He denied any odynophagia, dysphagia, early satiety, hematemesis, or melena. He noted mild bloating & discomfort, related to the PCKD and ascites, but no significant abdominal pain. He had some mild weight loss since having his right pleural effusion drained repeatedly. 08/01/91: EGD (purged)- mod to severe GERD, without Daley's. 07/19/01: Colonoscopy (purged)- benign TA. 02/22/06: Colonoscopy to cecum- tortuous redundant lumen due to PCKD, normal mucosa to cecum, w/o recurrent polyps (*not compliant with suggested colonoscopy advised for 02/2011). 11/21/07: EGD to D2- mod GERD w/o Daley's, Z line at 39 cm, sentinel fold gastric cardia- benign gastritis with IM, HP-neg, suggestion of extrinsic compression of stomach, w/o GOO. The patient's recurrent right pleural effusion probably was related to his ascites, and is a hepatic hydrothorax, with ascitic fluid traversing the right hemidiaphragm. 02/27/15: CT AP without contrast- moderate ascites, although I did not see any more recent imaging studies of the abdomen. Although it is unusual, he may have progression of PCKD, with overwhelming hepatic cysts replacing his hepatic parenchyma, causing cirrhosis. Other entities to consider would be chronic viral hepatitis, rule out autoimmune hepatitis, rule out PBC ( fluctuating alk phos x years, with +GGT), rule out overload state. Having stated that, he did not have reversal of albumin:globulin ratio (albeit, on IV SPA periodically), nor thrombocytopenia. Additionally, his INR was only borderline elevated. He reportedly had a stable echocardiogram in 06/2016, without any elevated right heart pressures. He remained with 2 PleurX catheters- 1 in the right pleural space, with the initial one now in his abdominal cavity & capped. His 11/05/16: ascitic fluid showed elevated SAAG 1.2, but there was no concurrent BF protein sent (would expect BF protein < 2.0 in conjunction with elevated SAAG > 1.1, if the ascites were from portal HTN). I previously advised that the patient contact Dr. Hearn, to set up a repeat ascitic fluid tap via the migrated right PleurX catheter, to check a cell count, Gram stain, culture, cytology, BF protein, BF albumin & simultaneous serum albumin, to repeat a SAAG (expect high SAAG, low BF protein, if ascites is from portal HTN). A FibroScan would be difficult to interpret with the large amounts of hepatic cysts. I will defer repeating a noncontrast CT of the abdomen for now , as it will be a limited study, in view of his GFR. The patient saw the [facility] for initial evaluation 01/05/17, regarding his PCKD. I think it would be helpful to know whether the patient truly has cirrhosis prior to this. Therefore, my office wset up a transjugular liver biopsy with HV wedge pressure at [facility], prior to his transplant evaluation. As the patient remotely had colon adenomas removed , & last had a clean (albeit tortuous) colonoscopy 02/22/06, I advised a repeat colonoscopy with a pediatric colonoscope after TriLyte (low GFR). He was overdue for a follow-up colonoscopy, advised for 02/2011. The [facility] will want his colonic mucosa cleared of any lesions. The risks and benefits of colonoscopy were discussed with the patient, and he wished to proceed. He realized that he is at higher than average risk for this, in view of his PCKD causing extrinsic compression. I will try to coordinate an abdominal tap prior to the colonoscopy, to help decrease his intra-abdominal pressures. A variety of antireflux measures were discussed with the patient. His Omeprazole 40 mg daily will be continued for now. I advised a follow-up GI visit here in 02/2017, about a month after he is evaluated by the [facility]. At that point, I will consider a repeat EGD in view of his chronic GERD, as well as to exclude potential varices, if the above workup is suggestive of cirrhosis. Additionally, I would consider a small bowel biopsy and perhaps a celiac panel then, if there was evidence of iron deficiency on the blood work. Mr. Tijerina preferred not to have his EGD done simultaneously with his colonoscopy, as he felt it would be too much to go through at one time, keeping in mind his advanced PCKD. Further recommendations will follow, depending on clinical course. 12/01/16: *I spoke with [facility] IR, Dr. Omar Tipton. Liver bx could not be done , as extensive cystic disease. RA 1 mm Hg, HV 4 mm HG, HVWPG 17 mm Hg, suggestive of possible post-sinusoidal obstruction (not sinusoidal), possibly from extensive PCKD. 1) Please get MRI liver (cannot give contrast with low GFR)-> not done. 2) Advise liver consult at [facility] (see if they want to do MRI there) 12/13/16: *PT 12.5, INR 1.19, WBC 8.3, chronic H/H 111.1/34.8, MCV 80.8, RDW 19.2, PLT 263, OMNICA- neg 1:40, glu 112, BUN/Cr 56/3.0 (chronic), GFR 21, HCO3 21, AG 11, alb 3.0, glob 3.2, TBil 0.3, alk phos 189, AST 17, ALT 17, HAVM- neg, Hep Bs Ag- neg, Hep Bs Ab- neg, + Hep C Ab, Fe 19, TIBC 232 (chronic disease), ferritin 90.7. AMA < 20, MONICA- neg 1:40, anti-LKM < 20, anti-smooth muscle Ab < 20, *nl AFP 1.5, elev A1AT 314 (not low), nl Hgb electrophoresis phenotype 12/14/16: *HCV RNA RT IU/mL < 15- not detected, HCV RNA LOGIU/mL < 1.18- not detected, HCV genotype- not detected. 12/14/16: *Colonoscopy to cecum- 1. Several sessile diminutive polyps, all completely removed via cold biopsies: (Specimen A- 5 mm proximal right colon polyp, NBI positive. Specimen B- 4 mm transverse colon polyp, NBI positive. Specimen C- 3 mm rectal polyp at 10 cm, NBI negative). 2. Moderate left-sided diverticula. 3. Moderate internal hemorrhoids, without active bleeding. 4. Extensive PCKD, with extrinsic compression and tortuous lumen. I called the pt 12/16/16 p.m. regarding the benign diminuitive sessile polyps (5 mm proximal right colon benign TA, 4 mm normal tissue in transverse colon without true polyp, 3 mm rectal polyp at 10 cm- benign hyperplastic). As the tiny polyps were benign, I advised a follow-up surveillance colonoscopy with the *pediatric colonoscope and a 1 gallon prep in 5 years (i.e.- 12/2021), keeping in mind the past personal history of colon adenoma. [*If he gets a transplant & is put on immunosuppressants, I might consider shortening the interval of follow-up colonoscopy to 3 years]. Add high-fiber diet plus FiberCon 2 tabs daily. Local care as needed, regarding internal hemorrhoids. Consideration for MRI liver at [facility], but cannot give gadolinium with low GFR. To summarize, Mr. 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 He is waiting for his indwelling abdominal catheter to be removed in the OR later on 03/23/17. He had been seen by numerous consultants, including renal and ID. He remained on broad-spectrum antibiotics, including IV Vancomycin & IV Fortaz 1g Q12h (IV Ceftriaxone D/C for better gram negative coverage). 03/22/17: Ascitic fluid- *8222 WBC (*90P/10Meso), 794 RBC. 03/22/17: Repeat ascitic fluid- *4250 WBC (*91P/1L/10Meso), 475 RBC, high SAAG, *high protein. The patient has post-obstructive portal hypertension, but uncertain if he has cirrhosis. Previous AFP- WNL. 03/22/17: ECHOCARDIOGRAM- CONCLUSIONS 1. This was a technically difficult study due to the patient's body habitus. 2. Aortic sclerosis is present with no valvular stenosis or insufficiency. 3. Mitral leaflet thickening is present with fibrosis of the chordal structures and mild systolic prolapse of the posterior leaflet with mild mitral insufficiency 4. a very small pericardial effusion is present which is hemodynamically insignificant. 5. The left ventricle chamber size and systolic function appear normal, 55-60%. There are no significant resting wall motion abnormalities. 6. The right heart structures are not well assessed. Minimal tricuspid insufficiency is present. The right ventricular systolic pressure could not be assessed by this examination. -Krysten Link M.D. 03/23/17: XRY-PORTABLE CHEST XRAY- Status post removal of Pleurx catheter, in PACU. New moderate to large right pleural effusion. Atelectasis of the right mid and lower lung as well as the left base. 03/23/17: ULTRASOUND-GUIDED RIGHT-SIDED CHEST TUBE PLACEMENT- Ultrasound-guided 10 Vietnamese right-sided chest tube placement. 03/24/17: XRY-PORTABLE CHEST XRAY- 1. Pigtail catheter is seen projected over the right lung base, presumably within a subpulmonic small pleural effusion. 2. Mild subsegmental atelectasis in the left CP angle. 3. Low lung volumes. 03/24/17: XRY-CHEST XRAY, TWO VIEWS- Low lung volumes with bibasilar subsegmental atelectasis. No significant pleural effusion or evidence of pneumothorax. A kink is noted in the pigtail catheter at the rib margin. 03/24/17: WBC 8.0 (91S/3L/6M), H/H 9.1/28.8, MCV 78.9, RDW 19.6, PLT 163, glu 82 , BUN/Cr 98/4.9, GFR 12, Na 138, K 4.8, HCO3 15, AG 19, Mg 2.2, Ca 7.8, PO4 8.2, alb 2.7, TBil 0.5, AST 28, ALT 37, troponin .05. 03/24/17: *Hep A Ab, Hep Bs Ag, Hep C Ab, Hep Bs Ab, Hep B core Ab- all negative. *As of 03/24/17, the patient was defervescing & no longer spiking, with O2 sat 3L nc 96. Numerous consultants' notes appreciated & events reviewed. The patient 's ascitic fluid grew GNR, secondary to the Pleurx catheter, which was removed by CTS on 03/23/17. This was followed by increased fluid in the right hemithorax & hypoxia, & a pigtail catheter was then placed by IR in the right hemithorax to help treat translocated ascites between the abdomen & the chest. IV Fortaz was continued & IV Vancomycin was felt to no longer be needed, based on GNR. 03/22/17: Ascitic C&S: Pseudomonas- pansensitive & E. Coli- resitant to Ampicillin & Bactrim. *BC/UC remained negative. The patient's urine output remained poor & he was suspected to have ATN (note: high U Na+) from sepsis. *The patient's previous outpt HVWPG at [facility] showed portal HTN, with suggestion of post-sinusoidal obstruction, due to PCKD, however a transjugular liver bx could not be done then , as the hepatic parenchyma was essentially replaced by cysts. Renal is anticipating eventual dialysis within the next few days, if his renal output does not improve, with plans for Evin cath placement. He was continued on SPA 25g IVPB Q8h. (No definite data for Midodrine/Octreotide, per discussion with renal, as no definite HRS, especially with elevated Jose Elias+). There is consideration by CTS to surgically close a potential communication in the diaphragm, if conservative therapy with the pigtail catheter does not help. CTS advised abdominal decompression & semi-upright status to help decrease fluid reaccumulation if the right hemithorax. The patient later developed asx SVT @[address] vs. rapid afib, txd with Toprol. BP was stable. IV NS @ 75 cc/hr was added, bu this could exacerbate ascites. *The patient currently denied any CP, SOB, abdominal pain, nausea, vomiting, jaundice, pleuritic pain, hemoptysis, fevers, or chills, and appeared more comfortable than he was earlier. CM: currently ST 101. SUGGEST- *Continue broad-spectrum antibiotics with IV Fortaz (ascitic C&S- Pseudomonas & E. Coli; no need for further Vanco). Follow-up cultures. Follow-up with ID and renal. *Continue IV SPA 25g Q8h. *Await 03/23/17: ascitic cytology for completeness. Maintain in ICU. Check I's and O's. *Defer to renal regarding IV: NS @ 75 cc/hr, but this could exacerbate ascites. *Agree with renal in holding Midodrine/Octreotide for now (HRS less likely, especially with elevated Jose Elias+). Keep in semi-upright posisiton to help decrease reaccumulation of right pleural fluid. *Regarding ascites, difficult to tell how much is fluid vs. PCKD at present- obviously cannot give diuretics now & may ultimately need periodic large volume abdominal taps for abdominal decompression. *Hopefully, conservative tx with pigtail catheter placed in right pleural space will help in healing diaphragmatic communication- if not, may need more definitive CTS intervention next week. *Evin cath per renal with possible dialysis in next few days if renal function continues to deteriorate. If diarrhea recurs, send stool workup. Follow-up electrolytes, GFR, CBC. Avoid nephrotoxins and hepatotoxins. *Assuming the patient stabilizes once peritonitis clears, reevaluation for both renal and hepatic transplant, either at [facility] or again, by [facility]. Reglan as needed (watch for EPS side effects). May resume PPI if needed (hx GERD ). As an aside, consideration for outpt EGD (varices, possible small bowel biopsy with history of iron deficiency). Repeat colonoscopy with nelin x 5 years (i.e.- 12/2021), post 1 gallon prep. [*If he gets a transplant & is put on immunosuppressants, I might consider shortening the interval of follow-up colonoscopy to 3 years]. The case was discussed with the patient's , Xochitl , at the bedside, as per his request & his children. The case was again discussed with the medical housestaff, & with Dr. Beck, Dr. Granda, & Dr. Morocho. Further GI recommendations to follow, depending on clinical course. 1/ 2 hour of ICU care was spent on the patient. Problem List: 1. Peritonitis 2. Polycystic kidney disease 3. Polycystic liver disease 4. Portal hypertension 5. Acute on chronic renal failure 6. Hyperkalemia 7. Ascites 8. Hydrothorax Subjective Subjective: 03/22/17: ECHOCARDIOGRAM- CONCLUSIONS 1. This was a technically difficult study due to the patient's body habitus. 2. Aortic sclerosis is present with no valvular stenosis or insufficiency. 3. Mitral leaflet thickening is present with fibrosis of the chordal structures and mild systolic prolapse of the posterior leaflet with mild mitral insufficiency 4. a very small pericardial effusion is present which is hemodynamically insignificant. 5. The left ventricle chamber size and systolic function appear normal, 55-60%. There are no significant resting wall motion abnormalities. 6. The right heart structures are not well assessed. Minimal tricuspid insufficiency is present. The right ventricular systolic pressure could not be assessed by this examination. -Krysten Link M.D. 03/23/17: XRY-PORTABLE CHEST XRAY- Status post removal of Pleurx catheter, in PACU. New moderate to large right pleural effusion. Atelectasis of the right mid and lower lung as well as the left base. 03/23/17: ULTRASOUND-GUIDED RIGHT-SIDED CHEST TUBE PLACEMENT- Ultrasound-guided 10 Vietnamese right-sided chest tube placement. 03/24/17: XRY-PORTABLE CHEST XRAY- 1. Pigtail catheter is seen projected over the right lung base, presumably within a subpulmonic small pleural effusion. 2. Mild subsegmental atelectasis in the left CP angle. 3. Low lung volumes. 03/24/17: XRY-CHEST XRAY, TWO VIEWS- Low lung volumes with bibasilar subsegmental atelectasis. No significant pleural effusion or evidence of pneumothorax. A kink is noted in the pigtail catheter at the rib margin. 03/24/17: WBC 8.0 (91S/3L/6M), H/H 9.1/28.8, MCV 78.9, RDW 19.6, PLT 163, glu 82 , BUN/Cr 98/4.9, GFR 12, Na 138, K 4.8, HCO3 15, AG 19, Mg 2.2, Ca 7.8, PO4 8.2, alb 2.7, TBil 0.5, AST 28, ALT 37, troponin .05. 03/24/17: *Hep A Ab, Hep Bs Ag, Hep C Ab, Hep Bs Ab, Hep B core Ab- all negative. *As of 03/24/17, the patient was defervescing & no longer spiking, with O2 sat 3L nc 96. Numerous consultants' notes appreciated & events reviewed. The patient 's ascitic fluid grew GNR, secondary to the Pleurx catheter, which was removed by CTS on 03/23/17. This was followed by increased fluid in the right hemithorax & hypoxia, & a pigtail catheeter was then placed by IR in the right hemithorax to help treat translocated ascites between the abdomen & the chest. IV Fortaz was continued & IV Vancomycin was felt to no longer be needed, based on GNR. 03/22/17: Ascitic C&S: Pseudomonas- pansensitive & E. Coli- resitant to Ampicillin & Bactrim. *BC/UC remianed negative. The patient's urine output remained poor & he was suspected to have ATN (note: high U Na+) from sepsis. *The patient's previous outpt HVWPG at [facility] showed portal HTN, with suggestion of post-sinusoidal obstruction, due to PCKD, however a transjugular liver bx could not be done then , as the hepatic parenchyma was essentially replaced by cysts. Renal is anticipating eventual dialysis within the next few days, if his renal output does not improve, with plans for Evin cath placement. He was continued on SPA 25g IVPB Q8h. (No definite data for Midodrine/Octreotide, per discussion with renal, as no definite HRS, especially with elevated Jose Elias+). There is consideration by CTS to surgically close a potential communication in the diaphragm, if conservative therapy with the pigtail catheterdoes not help. CTS advised abdominal decompression & semi-upright status to help decrease fluid reaccumulation if the right hemithorax. The patient later developed asx SVT @[address] vs. rapid afib, txd with Toprol. BP was stable. IV NS @ 75 cc/hr was added, bu this could exacerbate ascites. *The patient currently denied any CP, SOB, abdominal pain, nausea, vomiting, jaundice, pleuritic pain, hemoptysis, fevers, or chills, and appeared more comfortable than he was earlier. CM: currently ST 101. Review of Systems: Review of Systems: Full 14 point review of systems otherwise noncontributory, and as above. Constitutional: Reports: see HPI. EENTM: Reports: no symptoms. Cardiovascular: Reports: no symptoms. Respiratory: Reports: see HPI. GI: Reports: see HPI, abdominal pain- improving Genitourinary: Reports: no symptoms. Musculoskeletal: Reports: no symptoms. Skin: Reports: no symptoms. Neurological/Psychological: Reports: no symptoms. Hematologic/Endocrine: Reports: no symptoms. Objective Vital Signs and I&Os Vital Signs Date Time Temp Pulse Resp B/P B/P Pulse O2 O2 Flow FiO2 Mean Ox Delivery Rate 03/24 1722 172 03/24 1600 96 Nasal 3.0L Cannula 03/24 1600 98.5 74 18 120/80 96 Nasal 3.0L Cannula 03/24 0800 100 Nasal 3.0L Cannula 03/24 0800 98.4 102 21 120/70 100 Nasal 3.0L Cannula 03/24 0400 99 Nasal 3.0L Cannula 03/24 0000 98.1 92 12 88/68 99 Nasal 3.0L Cannula 03/24 0000 99 Nasal 3.0L Cannula 03/23 1999 94 Nasal 3.0L Cannula Intake & Output 03/24 1600 03/24 0400 03/23 1600 03/23 0400 03/22 040 Intake Total 920 221 3652 1149 1936 Output Total 1360 1400 1999 1050 Balance -790 -1288 -815 1149 886 Intake, Blood 200 Product Intake, IV 949 539 5326 669 1436 Intake, Oral 450 0 480 300 Number 0 0 1 Bowel Movements Output, Chest 960 1300 1850 Tube Drainage Output, 1000 Drainage Output, Urine 400 100 150 50 Patient 143 lb 163 lb 159 lb 150 lb Weight Weight Bed scale Measurement Method Physical Exam: Well-developed, malnourished, chronically ill appearing male, in no apparent distress. Sclera anicteric. Conjunctiva pink. Oropharynx clear. No oral thrush. No aphthous ulcers. There is no adenopathy, thyromegaly, JVD, or HJR. No peripheral stigmata of inflammatory bowel disease on exam. No spiders on the anterior chest wall. No gynecomastia. No CVA tenderness. Lungs: clear to A&P, with decreased BS 1/3 up at right base & slight decreased BS at left base. No wheezing, rales, or rhonchi. Pigtail catheter, right posterior chest wall (old site dressed). Heart exam: mildly tachycardic regular rate rhythm, S1 S2, ? mid- systolic click, without any murmur, rub or gallop. Abdominal exam: normal bowel sounds, distended belly, nontender, without guarding or rebound. Enlarged cystic liver, > 22 cm by percussion, with edge > 6 FBBRCM, crossing the midline. No mass. Difficult to tell if there is splenomegaly, due to PCKD. Questionable fluid shift with abdominal striae. (difficult to tell whether ascitic fluid vs. enlarged cysts). No pulsatile mass. No epigastric bruit. Digital rectal exam: deferred by patient (done at 12/14/16: colonoscopy). Extremities: without cyanosis or clubbing. 1+ peripheral edema LE B/L. No palpable cords. Mild DJD. No rash. No palmar erythema. No Dupuytren's contractures. Distal pulses 2+ bilaterally. DTRs 2+ bilaterally. Alert and oriented x 3. Right handed. No tremor. No asterixis. No cogwheeling or EPS signs. Motor 5/5 B/L. A detailed exam for peripheral neuropathy was deferred. Current Medications: Current Medications Sig/Lola Start time Last Medication Dose Route Stop Time Status Admin Acetaminophen 325 MG Q4P PRN 03/21 2115 AC 03/23 PO 0020 Albumin Human 25 GM Q8 03/24 2200 AC IV Albumin Human 25 GM Q8 03/23 1400 DC 03/24 IV 03/24 0601 0610 Ceftazidime 1,000 MG Q12H 03/23 0830 AC 03/24 IV 0830 Hydrocodone Bitart/ 1 TAB Q6P PRN 03/21 2100 AC Acetaminophen PO Metoclopramide HCl 10 MG Q6P PRN 03/21 2315 AC 03/24 IV 1020 Metoprolol Tartrate 5 MG ONCE ONE 03/24 1745 CAN IV 03/24 1746 Metoprolol Tartrate 5 MG ONCE ONE 03/24 1730 DC 03/24 IV 03/24 1731 1722 Morphine Sulfate 2 MG Q4P PRN 03/21 2100 AC 03/24 IV 1000 Ondansetron HCl 4 MG .STK-MED ONE 03/24 1017 DC IM 03/24 1018 Prochlorperazine 10 MG ONCE ONE 03/24 1700 DC IV 03/24 1701 Sevelamer Carbonate 1,600 MG WITH MEALS 03/24 1700 AC 03/24 PO 1812 Sodium Chloride 1,000 ML Q13H 03/24 1445 AC 03/24 IV 1600 Results Pertinent Lab Results: Laboratory Tests 03/24 03/24 1732 0440 Chemistry Sodium (137 - 145 mmol/L) 138 Potassium (3.5 - 5.1 mmol/L) 4.8 Chloride (98 - 107 mmol/L) 104 Carbon Dioxide (22 - 30 mmol/L) 15 L Anion Gap (5 - 16) 19 H BUN (9 - 20 mg/dL) 98 H Creatinine (0.7 - 1.2 mg/dL) 4.9 H Estimated GFR (>60 ml/min) 12 L Glucose (65 - 99 mg/dL) 82 Calcium (8.4 - 10.2 mg/dL) 7.8 L Phosphorus (2.5 - 4.5 mg/dL) 8.2 H Magnesium (1.6 - 2.3 mg/dL) 2.2 Total Bilirubin (0.2 - 1.3 mg/dL) 0.5 AST (17 - 59 U/L) 28 ALT (21 - 72 U/L) 37 Troponin I (<0.11 ng/ml) 0.05 Albumin (3.5 - 5.0 g/dL) 2.7 L Hematology CBC w Diff MAN DIFF ORDERED WBC (4.8 - 10.8 /CUMM) 8.0 RBC (4.70 - 6.10 /CUMM) 3.64 L Hgb (14.0 - 18.0 G/DL) 9.1 L Hct (42 - 52 %) 28.8 L MCV (80.0 - 94.0 FL) 78.9 L MCH (27.0 - 31.0 PG) 25.0 L RDW (11.5 - 14.5 %) 19.6 H Plt Count (130 - 400 /CUMM) 163 MPV (7.4 - 10.4 FL) 10.4 Segmented Neutrophils (42.2 - 75.2 %) 91 H Lymphocytes (20.5 - 51.1 %) 3 L Monocytes (1.7 - 9.3 %) 6 Platelet Estimate (ADEQUATE) ADEQUATE Polychromasia 1+ Hypochromic-Microcytic 1+ Poikilocytosis 2+ Ovalocytes 1+ [place] Cells 1+ PUBS MCHC (33.0 - 37.0 G/DL) 31.6 L Other Body Source Fld Total RBCs Counted (%) 100 Serology Hepatitis A IgM Ab (NONREACTIVE) NONREACTIVE Hep Bs Antigen (NONREACTIVE) NONREACTIVE Hep Bs Antibody (NONREACTIVE) NONREACTIVE Hep B Core IgM Ab Conf (NONREACTIVE) NONREACTIVE Hepatitis C Antibody (NONREACTIVE) NONREACTIVE 03/23 03/22 0430 2049 Chemistry Sodium (137 - 145 mmol/L) 136 L Potassium (3.5 - 5.1 mmol/L) 5.0 Chloride (98 - 107 mmol/L) 104 Carbon Dioxide (22 - 30 mmol/L) 13 L Anion Gap (5 - 16) 19 H BUN (9 - 20 mg/dL) 92 H Creatinine (0.7 - 1.2 mg/dL) 4.6 H Estimated GFR (>60 ml/min) 13 L Glucose (65 - 99 mg/dL) 90 Calcium (8.4 - 10.2 mg/dL) 7.7 L Phosphorus (2.5 - 4.5 mg/dL) 7.9 H Magnesium (1.6 - 2.3 mg/dL) 2.3 Total Bilirubin (0.2 - 1.3 mg/dL) 0.5 AST (17 - 59 U/L) 27 ALT (21 - 72 U/L) 42 Troponin I Cancelled Albumin (3.5 - 5.0 g/dL) 2.8 L Hematology CBC w Diff MAN DIFF ORDERED WBC (4.8 - 10.8 /CUMM) 8.3 RBC (4.70 - 6.10 /CUMM) 3.78 L Hgb (14.0 - 18.0 G/DL) 9.6 L Hct (42 - 52 %) 29.9 L MCV (80.0 - 94.0 FL) 79.1 L MCH (27.0 - 31.0 PG) 25.4 L RDW (11.5 - 14.5 %) 19.7 H Plt Count (130 - 400 /CUMM) 187 MPV (7.4 - 10.4 FL) 10.5 H Segmented Neutrophils (42.2 - 75.2 %) 92 H Band Neutrophils (0.0 - 5.0 %) 1 Lymphocytes (20.5 - 51.1 %) 4 L Monocytes (1.7 - 9.3 %) 2 Metamyelocytes (0.0 - 1.0 %) 1 Platelet Estimate (ADEQUATE) ADEQUATE Hypochromic-Microcytic 1+ Microcytic Cells 1+ Target Cells RARE Ahsan Cells 1+ Elliptocytes FEW PUBS MCHC (33.0 - 37.0 G/DL) 32.0 L Toxicology Random Vancomycin (ug/ml) 9.2 03/22 03/22 03/22 1700 1645 1615 Chemistry Sodium (137 - 145 mmol/L) 138 Potassium (3.5 - 5.1 mmol/L) 5.1 Chloride (98 - 107 mmol/L) 102 Carbon Dioxide (22 - 30 mmol/L) 17 L Anion Gap (5 - 16) 19 H BUN (9 - 20 mg/dL) 90 H Creatinine (0.7 - 1.2 mg/dL) 4.4 H Estimated GFR (>60 ml/min) 13 L Glucose (65 - 99 mg/dL) 92 Calcium (8.4 - 10.2 mg/dL) 7.7 L Phosphorus (2.5 - 4.5 mg/dL) 7.5 H Magnesium (1.6 - 2.3 mg/dL) 1.8 Total Bilirubin (0.2 - 1.3 mg/dL) 0.5 AST (17 - 59 U/L) 27 ALT (21 - 72 U/L) 34 Albumin (3.5 - 5.0 g/dL) 3.3 L Coagulation PT (9.4 - 12.5 SEC) 15.3 H INR (0.90 - 1.17) 1.46 H APTT (25 - 37 SEC) 30 Hematology CBC w Diff MAN DIFF ORDERED WBC (4.8 - 10.8 /CUMM) 7.5 RBC (4.70 - 6.10 /CUMM) 4.00 L Hgb (14.0 - 18.0 G/DL) 10.1 L Hct (42 - 52 %) 31.9 L MCV (80.0 - 94.0 FL) 79.7 L MCH (27.0 - 31.0 PG) 25.1 L RDW (11.5 - 14.5 %) 20.5 H Plt Count (130 - 400 /CUMM) 195 MPV (7.4 - 10.4 FL) 9.5 Segmented Neutrophils (42.2 - 75.2 %) 79 H Band Neutrophils (0.0 - 5.0 %) 10 H Lymphocytes (20.5 - 51.1 %) 6 L 1 Monocytes (1.7 - 9.3 %) 4 Eosinophils (0 - 5.0 %) 1 % Normal PMNs (%) 91 Platelet Estimate (ADEQUATE) ADEQUATE Polychromasia 1+ Hypochromic-Microcytic 1+ Poikilocytosis 1+ Anisocytosis 1+ PUBS MCHC (33.0 - 37.0 G/DL) 31.5 L Misc Hematology Test (%) Other Body Source Fluid WBC (0 - 5 /CUMM) 4250 H Fld Total RBCs Counted (0 /CUMM) 475 H 03/22 03/22 03/22 1533 UNK 0400 Other Body Source Fluid Glucose (mg/dL) 78 Fluid Total Protein (g/dL) Cancelled 3.8 Fluid Albumin (g/dL) 1.8 Fluid LDH (U/L) 578 Urines Urinalysis MOD H Urine Color (YEL,AMB,STR) YEL Urine Clarity (CLEAR) HAZY H Urine pH (5.0 - 8.0) 5.5 Ur Specific [place] (1.001 - 1.035) 1.025 Urine Protein (NEG,<30 MG/DL) 30 H Urine Ketones (NEG) NEG Urine Nitrite (NEG) NEG Urine Bilirubin (NEG) NEG Urine Urobilinogen (0.1 - 1.0 EU/dl) 0.2 Ur Leukocyte Esterase (NEG) NEG Ur Microscopic SEDIMENT EXAMINED Urine RBC (0 - 5 /HPF) RARE Urine WBC (0 - 2 /HPF) 1-3 H Ur Epithelial Cells (NONE,FEW) RARE Urine Hemoglobin (NEG) NEG Urine Glucose (N MG/DL) NEG 03/22 03/22 03/22 03/22 0400 0345 0345 0345 Chemistry Sodium (137 - 145 mmol/L) 139 Potassium (3.5 - 5.1 mmol/L) 5.6 H Chloride (98 - 107 mmol/L) 104 Carbon Dioxide (22 - 30 mmol/L) 17 L Anion Gap (5 - 16) 18 H BUN (9 - 20 mg/dL) 86 H Creatinine (0.7 - 1.2 mg/dL) 4.3 H Estimated GFR (>60 ml/min) 14 L Glucose (65 - 99 mg/dL) 71 Lactic Acid (0.7 - 2.1 mmol/L) 1.7 Calcium (8.4 - 10.2 mg/dL) 7.9 L Phosphorus (2.5 - 4.5 mg/dL) 7.8 H Magnesium (1.6 - 2.3 mg/dL) 2.1 Total Bilirubin (0.2 - 1.3 mg/dL) 0.6 AST (17 - 59 U/L) 27 ALT (21 - 72 U/L) 31 Albumin (3.5 - 5.0 g/dL) 2.8 L Alpha Fetoprotein Pending Hematology CBC w Diff MAN DIFF ORDERED WBC (4.8 - 10.8 /CUMM) 7.5 RBC (4.70 - 6.10 /CUMM) 3.97 L Hgb (14.0 - 18.0 G/DL) 10.2 L Hct (42 - 52 %) 31.9 L MCV (80.0 - 94.0 FL) 80.5 MCH (27.0 - 31.0 PG) 25.8 L RDW (11.5 - 14.5 %) 19.6 H Plt Count (130 - 400 /CUMM) 224 MPV (7.4 - 10.4 FL) 10.6 H Segmented Neutrophils (42.2 - 75.2 %) 64 Band Neutrophils (0.0 - 5.0 %) 17 H Lymphocytes (20.5 - 51.1 %) 14 L Monocytes (1.7 - 9.3 %) 5 Platelet Estimate (ADEQUATE) ADEQUATE Hypochromic-Microcytic 1+ Poikilocytosis 2+ Anisocytosis 1+ PUBS MCHC (33.0 - 37.0 G/DL) 32.1 L Urines Urine Osmolality (300 - 1000 MOSM/KG) 325 Ur Random Creatinine (mg/dL) 127.9 Ur Random Sodium (30 - 90 mmol/L) 38 Ur Random Potassium (mmol/L) 43.6 Fraction Sodium Excret (<1% %) 0.9 03/22 03/21 03/21 0145 2311 2115 Blood Gas pH (7.35 - 7.45 PH) 7.32 L pCO2 (35 - 45 TORR) 29 L pO2 (80 - 100 TORR) 96 HCO3 (21 - 28 MEQ/L) 15 L ABG O2 Sat (Measured) (>96.0 %) 97.0 P-50 (Temp Corrected) N Carboxyhemoglobin (1.5 - 5.0 %) 0.4 L O2 Concentration % R/A Temperature (97.0 - 100.0 FARH) 97.3 Chemistry Lactic Acid (0.7 - 2.1 mmol/L) 2.3 H Hematology % Normal PMNs (%) 90 Miscellaneous Phlebotomy Draw Site RIGHT RADIAL Other Body Source Fluid WBC (0 - 5 /CUMM) 8222 H Fld Mesothelial Cells (%) 10 Fld Total RBCs Counted (0 /CUMM) 794 H Imaging/Other Studies: 03/21/17: EKG- ST @ 105, normal axis, normal intervals, NSST, PRWP 03/21/17: XRY-PORTABLE CHEST XRAY- Low lung volumes with elevated right hemidiaphragm. No acute pulmonary findings. 03/21/17: CT ABDOMEN AND PELVIS WITHOUT CONTRAST- 1. Numerous cysts effectively replacing the normal hepatic and bilateral renal parenchyma, grossly similar compared to prior. There is a new hyperdense lesion in the right renal fossa which could represent a proteinaceous or hemorrhagic cyst however an underlying mass is not excluded. 2. Interval development of large amount of abdominopelvic ascites. 3. Stable position of a drainage catheter along the right hepatic dome. 03/22/17: ECHOCARDIOGRAM- CONCLUSIONS 1. This was a technically difficult study due to the patient's body habitus. 2. Aortic sclerosis is present with no valvular stenosis or insufficiency. 3. Mitral leaflet thickening is present with fibrosis of the chordal structures and mild systolic prolapse of the posterior leaflet with mild mitral insufficiency 4. a very small pericardial effusion is present which is hemodynamically insignificant. 5. The left ventricle chamber size and systolic function appear normal, 55-60%. There are no significant resting wall motion abnormalities. 6. The right heart structures are not well assessed. Minimal tricuspid insufficiency is present. The right ventricular systolic pressure could not be assessed by this examination. -Krysten Link M.D. 03/23/17: XRY-PORTABLE CHEST XRAY- Status post removal of Pleurx catheter, in PACU. New moderate to large right pleural effusion. Atelectasis of the right mid and lower lung as well as the left base. 03/23/17: ULTRASOUND-GUIDED RIGHT-SIDED CHEST TUBE PLACEMENT- Ultrasound-guided 10 Vietnamese right-sided chest tube placement. 03/24/17: XRY-PORTABLE CHEST XRAY- 1. Pigtail catheter is seen projected over the right lung base, presumably within a subpulmonic small pleural effusion. 2. Mild subsegmental atelectasis in the left CP angle. 3. Low lung volumes. 03/24/17: XRY-CHEST XRAY, TWO VIEWS- Low lung volumes with bibasilar subsegmental atelectasis. No significant pleural effusion or evidence of pneumothorax. A kink is noted in the pigtail catheter at the rib margin.
[2017-03-24 23:00] VITALS: BP 104/68
--- NOTE | 2017-03-24 23:39 | Event Note ---
Event Note Event Note: S/B: Around 11:30 patient's heart rate went up to high 170s Completely asymptomatic denied any chest pain shortness of breath or palpitations. Blood pressure noted to be around 87/67 Stat EKG done showed SVT Called and spoke to Dr. Menchaca who recommended giving IV adenosine Patient broke on his own with heart rates going back to 90s prior to giving adenosine Assessment and plan: NSVT, normal electrolytes, troponin negative His home medication of verapamil has been held since admission will bolus 250cc Awning Spreader aware of above events cardio to see in am signout given to night team.
[2017-03-25 04:30] LABS: HEMATOCRIT 29.2 % (42-52); MEAN CORPUSCULAR HGB 24.8 PG (27.0-31.0); MEAN CORPUSCULAR HGB CONC 31.2 G/DL (33.0-37.0); MEAN CORPUSCULAR VOLUME 79.2 FL (80.0-94.0); MEAN PLATELET VOLUME 9.9 FL (7.4-10.4); PLATELET COUNT 188 /CUMM (130-400); RBC DISTRIBUTION WIDTH 20.8 % (11.5-14.5); RED BLOOD CELL CT 3.69 /CUMM (4.70-6.10); WHITE BLOOD CELL COUNT 6.8 /CUMM (4.8-10.8)
[2017-03-25 07:00] VITALS: BP 118/68
--- NOTE | 2017-03-25 07:39 | PN- Resident CRCU ---
Lucía Enciso 03/25/17 0739: Subjective HPI/CRCU Issues: Catheter-associated Peritonitis SHELBY on CKD Hyperkalemia Acute hypoxic respiratory failure 24 Hour Events: His pigtail drained 450 cc in last 8 hrs. He reports his pain meds temporarily subsides his pain. He had 2 episoded of SVT with HR up to 180s yesterday and was given Metoprolol 5 mg on first event. The second event spontaneously resolved. Objective Vital Signs & I&O Last 8 Hrs of Vitals and I&O: Intake & Output 03/25 1600 Intake Total Output Total Balance Patient 144 lb Weight Weight Chair scale Measurement Method BP:91-118/57-74 HR: 86-104 I: 850 O: 740 Cath output: 450 Exam General Appearance: alert, awake, mild distress Head: atraumatic, normal appearance Ears, Nose, Throat: normal pharynx, normal ENT inspection, hearing grossly normal Neck: normal inspection, supple, full range of motion Respiratory: lungs clear Cardiovascular: regular rate/rhythm Gastrointestinal: Abdominal distention. Pigtail on lateral R abdomen with serosanguinous drainage. Extremities: no edema Current Medications: Current Medications Sig/Lola Start time Last Medication Dose Route Stop Time Status Admin Acetaminophen 325 MG Q4P PRN 03/21 2115 AC 03/23 PO 0020 Adenosine 6 MG ONCE ONE 03/24 2345 CAN IV 03/24 2346 Albumin Human 25 GM Q8 03/24 2200 AC 03/25 IV 1443 Ceftazidime 1,000 MG Q12H 03/23 0830 AC 03/25 IV 0830 Fentanyl Citrate 0 .STK-MED ONE 03/25 1027 DC .ROUTE Heparin Sodium 0 .STK-MED ONE 03/25 0932 DC (Porcine) IV Hydrocodone Bitart/ 1 TAB Q6P PRN 03/21 2100 AC 03/25 Acetaminophen PO 0035 Lidocaine 0 .STK-MED ONE 03/25 0932 DC .ROUTE Metoclopramide HCl 10 MG Q6P PRN 03/21 2315 AC 03/24 IV 1020 Metoprolol Tartrate 5 MG ONCE ONE 03/24 1745 CAN IV 03/24 1746 Metoprolol Tartrate 5 MG ONCE ONE 03/24 1730 DC 03/24 IV 03/24 1731 1722 Midazolam HCl 0 .STK-MED ONE 03/25 1028 DC .ROUTE Morphine Sulfate 2 MG Q4P PRN 03/21 2100 AC 03/24 IV 1000 Multivitamins 1 TAB WITH MEALS 03/25 1700 CAN PO Multivitamins 1 TAB 1700 03/25 1700 AC PO Prochlorperazine 10 MG ONCE ONE 03/24 1700 DC IV 03/24 1701 Sevelamer Carbonate 1,600 MG WITH MEALS 03/24 1700 AC 03/24 PO 1812 Sodium Chloride 250 ML BOLUS ONE 03/24 2345 DC 03/25 IV 03/25 0044 0011 Sodium Chloride 1,000 ML Q13H 03/24 1445 DC 03/25 IV 0515 Verapamil HCl 180 MG DAILY 03/25 0745 AC PO Impression/Plan Impression/Problem List Impression: Mr. Tijerina is a 66 yo m with a PMH of PKD, Polycystic liver disease, portal HTN , HTN, HLD, umbilical hernia repair, colon ademona, GERD who presented to the ED with NVD with progressively worsened abdominal distention from ascitic fluid. Acute hypoxic respiratory failure s/p Pleurx Cath removal Patient has a patent connection between abdominal cavity and pleural space 2/2 migrated indwelling catheter, leading to transfer of ascitic fluid to the pleural space. A pig tail was placed. As per Dr. Carson options are to watch and wait to see if spontaneously resolves vs surgical intervention. PA/Lateral CXR for pleural effusio demonstrated no significant pleural effusion or evidence of pneumothorax. ECHO demonstrated Aortic sclerosis is present with no valvular stenosis or insufficiency, a very small pericardial effusion, EF 55-60% * Continue pigtail catheter drainage connected to water seal * Continue oxygen supplementation, goal O2 sat >90% * Surgery recommendations appreciated Catheter-associated Peritonitis Patient had an indwelling pleural catheter placed in July 2016 for pleural effusion that migrated into the abdominal cavity. Considering that the patient's catheter was never removed it can be a possible source of infection. He had another catheter placed in the R lung that was eventually removed. CT abdomen/ pelvis on admission demonstrated the resolution of his R-side pleural effusion. He gets 1L of ascitic fluid drained from the migrated Pleurx catheter on MW. Prior to coming to the hospital it was last drained on Tuesday by his visiting nurse. He had a diagnostic and therapeutic paracentesis performed overnight. His ascitic fluid white count was 8222. Repeat paracentesis demonstrated a transudative ascitic fluid with SAAG > 1. His ascitic fluid culture grew GNR and he was started on Ceftazidime. Vancomycin was discontinued. * ID recommendations appreciated * GI recommendations appreciated * Continue Ceftazidime * Continue Metoclopramide for nausea SHELBY on CKD most likely 2/2 dehydration in the setting of his CKD from PKD Patient is reported to have a baseline of 2-3. His Cr is trending up. On admission Cr was 4.3>>4.9. He was given 2L of IVF and is currently on an albumin infusion. * Monitor renal function * Continue IV Albumin 25 gm q8 * Continue NS IVF * Nephrology recommendations appreciated * Evin cath placement today for dialysis History of PKD, Polycystic liver disease Patient reported he had an appt at [facility] in which he was told he wouldn't receive a transplant until the resolution of his ascitic fluid. CT abd/pel demonstrated numerous cysts effectively replacing the normal hepatic and bilateral renal parenchyma Hyperkalemia * Monitor potassium * Start 2g potassium restriction in diet DVT ppx: ALPS Problem List: 1. Polycystic kidney disease 2. Polycystic liver disease 3. Peritonitis 4. Hydrothorax Pain Ratin Tomorrow's Labs & Rationales: CBC, Bundle Plan DVT/Prophylaxis: mechanical Suhail Morocho MD 03/25/17 0928: Attending MD Review Statement Attending Sign Off Attending Cosign Statement: I have: examined this patient, reviewed [facility] EMR data, personally reviewd images, discussd w/resident/PA/ELECT[employer] HARDWARE DESIGN ENGINEER, discussed mgmt plan w/klever, discussed mgmt plan w/CM, discussed mgmt plan w/pt, agreed w/resident/PA/ELECT[employer] HARDWARE DESIGN ENGINEER, amended to note. Other Findings: Impression 66 year old man * In ICU secondary to acute hypoxemic respiratory failure secondary to ascites that has traversed the diaphgragm causing ascitic fluid in the pleural cavity that is now growing pseudomonas, E.Coli - his respiratory failure has improved to a nasal cannula from a high flow oxygen cannula * Polycystic kidney and liver disease * Narrow complex tachycardia overnight - likely SVT * Peritonitis secondary to an indwelling pleural catheter * SHELBY on CKD Plan Respiratory -now on nasal cannula improved -cont to monitor chest tube output over the weekend, do not remove indwelling pleural catheter as of yet -f/u Dr. Carson's recommendations - we are in agreement to leave the catheter until HD is started ID -ID recommendations are appreciated -ceftazadime 1gm q12h CVS -monitor hemodynamics -cardiology consultation (Dr. Menchaca was called) -currently on verapamil and heart has been controlled -ECHO reviewed from 03/22 - small pericardial effusion Heme -monitor cbc, coags Metabolic -tunneled dialysis catheter today by IR -nephrology appreciated -plan for HD over the weekend -with respect to the future we will treat the acute issues and once hopefully Mr. Tijerina recovers he should be evaluated for a liver/kidney transplantation, having said that the transplantation would be dependent on all of his comorbid conditions -potassium restriction diet Alimentary -nutrition follow up Neuro -no acute issues DVT prophylaixs at all times - chemical prophylaxis is held for IR procedure, in the meantime use ALPS TTS 45 min Merly LYONS,Anderson Rowe 03/25/17 1156: Attending MD Review Statement Attending Sign Off Attending Cosign Statement: I have: examined this patient, reviewed [facility] EMR data, personally reviewd images, discussd w/resident/PA/ELECT[employer] HARDWARE DESIGN ENGINEER, discussed mgmt plan w/klever, discussed mgmt plan w/pt, agreed w/resident/PA/ELECT[employer] HARDWARE DESIGN ENGINEER.
--- NOTE | 2017-03-25 08:35 | PN- Gastroenterology ---
Assessment/Plan Assessment/Recommendations: (*Covering GI consult per Dr. Springer of 03/22/17 reviewed, along with extensive past records). 66 y/o male, HTN, non-DM, HLD, anxiety, resection BC Ca (face), B/L IH repair, umbilical hernia repair, history of renal stones (? type), remote history of colon adenoma- removed 07/19/01, chronic GERD- dependent on Omeprazole 40 mg daily x years, & PCKD. There is no family history of GI malignancy, IBD, or inherited liver disease. Positive family history of PCKD (all 3 children- 1 son & 2 dtrs). History of colon adenoma & chronic microcytic anemia. He is followed by Dr. Hearn fo renal, Dr. Lehman for primary care, Dr. Hearn for nephrology, Dr. Moreland for pulmonary, Dr. Carson for cardiothoracic surgery, & Dr. Link for cardiology. *Additionally, he saw the [facility] for evaluation of his PCKD, regarding his kidneys & potentially his liver. The transplant notes did not make mention of his liver, and he was declined for a renal transplant, for unknown reasons. His Cr had worsened, peaking at 3.1 earlier in 2017, stabilizing in the upper 2's. The patient was recently found to have a right pleural effusion in 06/2016, which was tapped, revealing a benign transudate. He reportedly had a normal echocardiogram at Dr. Link in 06/2016. 07/12/16: CT chest without contrast- moderate to large right pleural effusion with left shift of the mediastinum, no infiltrate, no suspicious pulmonary nodules. 07/14/16: Right PleurX catheter placed, which migrated into the abdominal cavity. A new PleurX catheter was placed in the right lung, after the first one had migrated, but both remain. Apparently, the abdominal catheter is capped. The previously had 1L fluid drained from the right lung M, W, F with IV SPA infusion, as occasionally he dropped his blood pressure with this. The right pleural catheter was pulled, and he was getting 1 L of ascites removed from his indwelling abdominal catheter each week. 10/01/16: albumin 4.2, globulin 2.6, TBil 0.5, alk phos 146, AST 15, ALT 19 10/21/16: PT 13.8, INR 1.32 10/28/16: WBC 8.1, H/H 10.6/33.1, MCV 78.9, RDW 19.5, PLT 183, BUN/Cr 56/2.7, GFR 24, Na 144, K 5.0, HCO3 20, AG 16 11/05/16: Ascitic tap- elevated SAAG 1.2 (serum albumin 3.5, BF albumin 2.3), but no BF protein sent, nor cell count, gram stain, culture, or cytology. *Please note, the patient's alk phos has fluctuated back to 2004. 10/05/10: +GGT 319. 02/17/05: Genetic testing HHC (H63D/C282Y)- negative. 02/20/05: MONICA- neg 1:40, anti-LKM Ab- neg, anti-smooth muscle Ab- neg, AMA < 0.1 ; Hep A Ab, Hep Bs Ag, Hep B core Ab, Hep Bs Ab & Hep C Ab- all neg; Fe 58, TIBC 401, Fe sat 14.5%, ferritin 119.3. The patient denied any pruritus, jaundice, dark urine, light stool, confusion, or peripheral edema. His abdominal girth was stable. He denied any blood transfusions, needle sticks, tattoos, risk factors for HIV, or IVDA. the patient 's anemia was somewhat chronic. He denied any history of beta thalassemia. He denied any aspirin or NSAID use. He denied any chest pain or shortness of breath. He admitted to mild dyspnea on exertion, related to his right pleural effusion. He denied any hemoptysis, fevers, or chills. He had chronic GERD, stable yet dependent on Omeprazole 40 mg daily. He denied any odynophagia, dysphagia, early satiety, hematemesis, or melena. He noted mild bloating & discomfort, related to the PCKD and ascites, but no significant abdominal pain. He had some mild weight loss since having his right pleural effusion drained repeatedly. 08/01/91: EGD (purged)- mod to severe GERD, without Daley's. 07/19/01: Colonoscopy (purged)- benign TA. 02/22/06: Colonoscopy to cecum- tortuous redundant lumen due to PCKD, normal mucosa to cecum, w/o recurrent polyps (*not compliant with suggested colonoscopy advised for 02/2011). 11/21/07: EGD to D2- mod GERD w/o Daley's, Z line at 39 cm, sentinel fold gastric cardia- benign gastritis with IM, HP-neg, suggestion of extrinsic compression of stomach, w/o GOO. The patient's recurrent right pleural effusion probably was related to his ascites, and is a hepatic hydrothorax, with ascitic fluid traversing the right hemidiaphragm. 02/27/15: CT AP without contrast- moderate ascites, although I did not see any more recent imaging studies of the abdomen. Although it is unusual, he may have progression of PCKD, with overwhelming hepatic cysts replacing his hepatic parenchyma, causing cirrhosis. Other entities to consider would be chronic viral hepatitis, rule out autoimmune hepatitis, rule out PBC ( fluctuating alk phos x years, with +GGT), rule out overload state. Having stated that, he did not have reversal of albumin:globulin ratio (albeit, on IV SPA periodically), nor thrombocytopenia. Additionally, his INR was only borderline elevated. He reportedly had a stable echocardiogram in 06/2016, without any elevated right heart pressures. He remained with 2 PleurX catheters- 1 in the right pleural space, with the initial one now in his abdominal cavity & capped. His 11/05/16: ascitic fluid showed elevated SAAG 1.2, but there was no concurrent BF protein sent (would expect BF protein < 2.0 in conjunction with elevated SAAG > 1.1, if the ascites were from portal HTN). I previously advised that the patient contact Dr. Hearn, to set up a repeat ascitic fluid tap via the migrated right PleurX catheter, to check a cell count, Gram stain, culture, cytology, BF protein, BF albumin & simultaneous serum albumin, to repeat a SAAG (expect high SAAG, low BF protein, if ascites is from portal HTN). A FibroScan would be difficult to interpret with the large amounts of hepatic cysts. I will defer repeating a noncontrast CT of the abdomen for now , as it will be a limited study, in view of his GFR. The patient saw the [facility] for initial evaluation 01/05/17, regarding his PCKD. I think it would be helpful to know whether the patient truly has cirrhosis prior to this. Therefore, my office wset up a transjugular liver biopsy with HV wedge pressure at [facility], prior to his transplant evaluation. As the patient remotely had colon adenomas removed , & last had a clean (albeit tortuous) colonoscopy 02/22/06, I advised a repeat colonoscopy with a pediatric colonoscope after TriLyte (low GFR). He was overdue for a follow-up colonoscopy, advised for 02/2011. The [facility] will want his colonic mucosa cleared of any lesions. The risks and benefits of colonoscopy were discussed with the patient, and he wished to proceed. He realized that he is at higher than average risk for this, in view of his PCKD causing extrinsic compression. I will try to coordinate an abdominal tap prior to the colonoscopy, to help decrease his intra-abdominal pressures. A variety of antireflux measures were discussed with the patient. His Omeprazole 40 mg daily will be continued for now. I advised a follow-up GI visit here in 02/2017, about a month after he is evaluated by the [facility]. At that point, I will consider a repeat EGD in view of his chronic GERD, as well as to exclude potential varices, if the above workup is suggestive of cirrhosis. Additionally, I would consider a small bowel biopsy and perhaps a celiac panel then, if there was evidence of iron deficiency on the blood work. Mr. Tijerina preferred not to have his EGD done simultaneously with his colonoscopy, as he felt it would be too much to go through at one time, keeping in mind his advanced PCKD. Further recommendations will follow, depending on clinical course. 12/01/16: *I spoke with [facility] IR, Dr. Omar Tipton. Liver bx could not be done , as extensive cystic disease. RA 1 mm Hg, HV 4 mm HG, HVWPG 17 mm Hg, suggestive of possible post-sinusoidal obstruction (not sinusoidal), possibly from extensive PCKD. 1) Please get MRI liver (cannot give contrast with low GFR)-> not done. 2) Advise liver consult at [facility] (see if they want to do MRI there) 12/13/16: *PT 12.5, INR 1.19, WBC 8.3, chronic H/H 111.1/34.8, MCV 80.8, RDW 19.2, PLT 263, MONICA- neg 1:40, glu 112, BUN/Cr 56/3.0 (chronic), GFR 21, HCO3 21, AG 11, alb 3.0, glob 3.2, TBil 0.3, alk phos 189, AST 17, ALT 17, HAVM- neg, Hep Bs Ag- neg, Hep Bs Ab- neg, + Hep C Ab, Fe 19, TIBC 232 (chronic disease), ferritin 90.7. AMA < 20, MONICA- neg 1:40, anti-LKM < 20, anti-smooth muscle Ab < 20, *nl AFP 1.5, elev A1AT 314 (not low), nl Hgb electrophoresis phenotype 12/14/16: *HCV RNA RT IU/mL < 15- not detected, HCV RNA LOGIU/mL < 1.18- not detected, HCV genotype- not detected. 12/14/16: *Colonoscopy to cecum- 1. Several sessile diminutive polyps, all completely removed via cold biopsies: (Specimen A- 5 mm proximal right colon polyp, NBI positive. Specimen B- 4 mm transverse colon polyp, NBI positive. Specimen C- 3 mm rectal polyp at 10 cm, NBI negative). 2. Moderate left-sided diverticula. 3. Moderate internal hemorrhoids, without active bleeding. 4. Extensive PCKD, with extrinsic compression and tortuous lumen. I called the pt 12/16/16 p.m. regarding the benign diminuitive sessile polyps (5 mm proximal right colon benign TA, 4 mm normal tissue in transverse colon without true polyp, 3 mm rectal polyp at 10 cm- benign hyperplastic). As the tiny polyps were benign, I advised a follow-up surveillance colonoscopy with the *pediatric colonoscope and a 1 gallon prep in 5 years (i.e.- 12/2021), keeping in mind the past personal history of colon adenoma. [*If he gets a transplant & is put on immunosuppressants, I might consider shortening the interval of follow-up colonoscopy to 3 years]. Add high-fiber diet plus FiberCon 2 tabs daily. Local care as needed, regarding internal hemorrhoids. Consideration for MRI liver at [facility], but cannot give gadolinium with low GFR. To summarize, Mr. 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 He is waiting for his indwelling abdominal catheter to be removed in the OR later on 03/23/17. He had been seen by numerous consultants, including renal and ID. He remained on broad-spectrum antibiotics, including IV Vancomycin & IV Fortaz 1g Q12h (IV Ceftriaxone D/C for better gram negative coverage). 03/22/17: Ascitic fluid- *8222 WBC (*90P/10Meso), 794 RBC. 03/22/17: Repeat ascitic fluid- *4250 WBC (*91P/1L/10Meso), 475 RBC, high SAAG, *high protein. The patient has post-obstructive portal hypertension, but uncertain if he has cirrhosis. Previous AFP- WNL. 03/22/17: ECHOCARDIOGRAM- CONCLUSIONS 1. This was a technically difficult study due to the patient's body habitus. 2. Aortic sclerosis is present with no valvular stenosis or insufficiency. 3. Mitral leaflet thickening is present with fibrosis of the chordal structures and mild systolic prolapse of the posterior leaflet with mild mitral insufficiency 4. a very small pericardial effusion is present which is hemodynamically insignificant. 5. The left ventricle chamber size and systolic function appear normal, 55-60%. There are no significant resting wall motion abnormalities. 6. The right heart structures are not well assessed. Minimal tricuspid insufficiency is present. The right ventricular systolic pressure could not be assessed by this examination. -Krysten Link M.D. 03/23/17: XRY-PORTABLE CHEST XRAY- Status post removal of Pleurx catheter, in PACU. New moderate to large right pleural effusion. Atelectasis of the right mid and lower lung as well as the left base. 03/23/17: ULTRASOUND-GUIDED RIGHT-SIDED CHEST TUBE PLACEMENT- Ultrasound-guided 10 Divehi right-sided chest tube placement. 03/24/17: XRY-PORTABLE CHEST XRAY- 1. Pigtail catheter is seen projected over the right lung base, presumably within a subpulmonic small pleural effusion. 2. Mild subsegmental atelectasis in the left CP angle. 3. Low lung volumes. 03/24/17: XRY-CHEST XRAY, TWO VIEWS- Low lung volumes with bibasilar subsegmental atelectasis. No significant pleural effusion or evidence of pneumothorax. A kink is noted in the pigtail catheter at the rib margin. 03/24/17: WBC 8.0 (91S/3L/6M), H/H 9.1/28.8, MCV 78.9, RDW 19.6, PLT 163, glu 82 , BUN/Cr 98/4.9, GFR 12, Na 138, K 4.8, HCO3 15, AG 19, Mg 2.2, Ca 7.8, PO4 8.2, alb 2.7, TBil 0.5, AST 28, ALT 37, troponin .05. 03/24/17: *Hep A Ab, Hep Bs Ag, Hep C Ab, Hep Bs Ab, Hep B core Ab- all negative. *As of 03/24/17, the patient was defervescing & no longer spiking, with O2 sat 3L nc 96. Numerous consultants' notes appreciated & events reviewed. The patient 's ascitic fluid grew GNR, secondary to the Pleurx catheter, which was removed by CTS on 03/23/17. This was followed by increased fluid in the right hemithorax & hypoxia, & a pigtail catheter was then placed by IR in the right hemithorax to help treat translocated ascites between the abdomen & the chest. IV Fortaz was continued & IV Vancomycin was felt to no longer be needed, based on GNR. 03/22/17: Ascitic C&S: Pseudomonas- pansensitive & E. Coli- resitant to Ampicillin & Bactrim. *BC/UC remained negative. The patient's urine output remained poor & he was suspected to have ATN (note: high U Na+) from sepsis. *The patient's previous outpt HVWPG at [facility] showed portal HTN, with suggestion of post-sinusoidal obstruction, due to PCKD, however a transjugular liver bx could not be done then , as the hepatic parenchyma was essentially replaced by cysts. Renal is anticipating eventual dialysis within the next few days, if his renal output does not improve, with plans for Evin cath placement. He was continued on SPA 25g IVPB Q8h. (No definite data for Midodrine/Octreotide, per discussion with renal, as no definite HRS, especially with elevated Jose Elias+). There is consideration by CTS to surgically close a potential communication in the diaphragm, if conservative therapy with the pigtail catheter does not help. CTS advised abdominal decompression & semi-upright status to help decrease fluid reaccumulation if the right hemithorax. The patient later developed asx SVT @[address] vs. rapid afib, txd with Toprol. BP was stable. IV NS @ 75 cc/hr was added, bu this could exacerbate ascites. *The patient currently denied any CP, SOB, abdominal pain, nausea, vomiting, jaundice, pleuritic pain, hemoptysis, fevers, or chills, and appeared more comfortable than he was earlier. CM: currently ST 101. *On 03/24/17 at 11:30 PM, the patient had recurrent SVT to the 170s, with BP 87/ 67, resolved after IV adenosine. There were some associated palpitations. Verapamil was added. 03/25/17: WBC 6.8, H/H 9.1/29.2, MCV 79.2, RDW 20.8, PLT 188, glucose 87, BUN/Cr 102/5.3, Na 138, K 4.6, HCO3 13, AG 20, Ca 7.9, PO4 7.4, alb 2.9, TBil 0.6, AST 21, ALT 31, *As of 03/25/17, the patient was hemodynamically stable & afebrile on IV Fortaz, with O2 sat 3L 95%. BC & UC remained negative. He remained on SPA 25g IV Q8h & was awaiting Evin cath placement. His renal function was worsening with urine output approximately 150cc/8 hrs. Aside from some fatigue, he was currently asymptomatic. His chest tube put out 540cc last shift. SUGGEST- *Continue broad-spectrum antibiotics with IV Fortaz (ascitic C&S- Pseudomonas & E. Coli; no need for further Vanco). Follow-up cultures. Follow-up with ID and renal. *Continue IV SPA 25g Q8h. *Await 03/23/17: ascitic cytology for completeness. Maintain in ICU. Check I's and O's. *Await cardiology input regarding SVT. *Defer to renal regarding IV: NS @ 75 cc/hr, but this could exacerbate ascites. *Agree with renal in holding Midodrine/Octreotide for now ( HRS less likely, especially with elevated Jose Elias+). Keep in semi-upright posisiton to help decrease reaccumulation of right pleural fluid. *Regarding ascites, difficult to tell how much is fluid vs. PCKD at present- obviously cannot give diuretics now & may ultimately need periodic large volume abdominal taps for abdominal decompression. *Hopefully, conservative tx with pigtail catheter placed in right pleural space will help in healing diaphragmatic communication- if not, may need more definitive CTS intervention next week. *Evin cath per renal with possible dialysis in next few days if renal function continues to deteriorate. If diarrhea recurs, send stool workup. Follow-up electrolytes, GFR, CBC. Avoid nephrotoxins and hepatotoxins. *Assuming the patient stabilizes once peritonitis clears, re-evaluation for both renal and hepatic transplant, either at [facility] or again, by [facility]. Reglan as needed ( watch for EPS side effects). May resume PPI if needed (hx GERD). As an aside, consideration for outpt EGD (varices, possible small bowel biopsy with history of iron deficiency). Repeat colonoscopy with pedicolon x 5 years (i.e.- 12/2021) , post 1 gallon prep. [*If he gets a transplant & is put on immunosuppressants, I might consider shortening the interval of follow-up colonoscopy to 3 years]. The case was discussed with the patient's , Xochitl, at the bedside, as per his request & his children. The case was again discussed with the medical housestaff, & previously with Dr. Beck, Dr. Granda, & Dr. Morocho. Further GI recommendations to follow, depending on clinical course. Dr. Dalton will be covering GI over the weekend. Problem List: 1. Peritonitis 2. Hydrothorax 3. Polycystic kidney disease 4. Polycystic liver disease 5. Portal hypertension 6. Acute on chronic renal failure 7. Hyperkalemia 8. Ascites Subjective Subjective: *On 03/24/17 at 11:30 PM, the patient had recurrent SVT to the 170s, with BP 87/ 67, resolved after IV adenosine. There were some associated palpitations. Verapamil was added. 03/25/17: WBC 6.8, H/H 9.1/29.2, MCV 79.2, RDW 20.8, PLT 188, glucose 87, BUN/Cr 102/5.3, Na 138, K 4.6, HCO3 13, AG 20, Ca 7.9, PO4 7.4, alb 2.9, TBil 0.6, AST 21, ALT 31, *As of 03/25/17, the patient was hemodynamically stable & afebrile on IV Fortaz, with O2 sat 3L 95%. BC & UC remained negative. He remained on SPA 25g IV Q8h & was awaiting Evin cath placement. His renal function was worsening with urine output approximately 150cc/8 hrs. Aside from some fatigue, he was currently asymptomatic. His chest tube put out 540cc last shift. Review of Systems: Full 14 point review of systems otherwise noncontributory, and as above. Constitutional: Reports: see HPI. EENTM: Reports: no symptoms. Cardiovascular: Reports: no symptoms. Respiratory: Reports: see HPI. GI: Reports: see HPI, abdominal pain- improving Genitourinary: Reports: no symptoms. Musculoskeletal: Reports: no symptoms. Skin: Reports: no symptoms. Neurological/Psychological: Reports: no symptoms. Hematologic/Endocrine: Reports: no symptoms. Objective Vital Signs and I&Os Vital Signs Date Time Temp Pulse Resp B/P B/P Pulse O2 O2 Flow FiO2 Mean Ox Delivery Rate 03/25 0700 97.9 95 28 118/68 95 Nasal 3.0L Cannula 03/25 0400 99 Nasal 2.0L Cannula 03/25 0000 95 Nasal 3.0L Cannula 03/24 2300 97.6 98 16 104/68 100 Nasal 3.0L Cannula 03/24 2000 100 Nasal 3.0L Cannula 03/24 1722 172 03/24 1600 96 Nasal 3.0L Cannula 03/24 1600 98.5 74 18 120/80 96 Nasal 3.0L Cannula Intake & Output 03/25 1600 03/25 0400 03/24 1600 03/24 0400 03/23 1600 03/23 0400 Intake Total 950 140 554 948 2018 1149 Output Total 296 168 0761 1400 1999 Balance 210 15 -790 -1288 -815 1149 Intake, IV 850 140 913 019 3671 669 Intake, Oral 100 450 0 480 Number 0 0 Bowel Movements Output, Chest 471 035 2607 1850 Tube Drainage Output, Urine 200 125 400 100 150 Patient 143 lb 163 lb Weight Weight Bed scale Measurement Method Physical Exam: Well-developed, malnourished, chronically ill appearing male, in no apparent distress. Sclera anicteric. Conjunctiva pink. Oropharynx clear. No oral thrush. No aphthous ulcers. There is no adenopathy, thyromegaly, JVD, or HJR. No peripheral stigmata of inflammatory bowel disease on exam. No spiders on the anterior chest wall. No gynecomastia. No CVA tenderness. Lungs: clear to A&P, with decreased BS 1/3 up at right base & slight decreased BS at left base. No wheezing, rales, or rhonchi. Pigtail catheter, right posterior chest wall (old site dressed). Heart exam: mildly tachycardic regular rate rhythm, S1 S2, ? mid- systolic click, without any murmur, rub or gallop. Abdominal exam: normal bowel sounds, distended belly, nontender, without guarding or rebound. Enlarged cystic liver, > 22 cm by percussion, with edge > 6 FBBRCM, crossing the midline. No mass. Difficult to tell if there is splenomegaly, due to PCKD. Questionable fluid shift with abdominal striae. (difficult to tell whether ascitic fluid vs. enlarged cysts). No pulsatile mass. No epigastric bruit. Digital rectal exam: deferred by patient (done at 12/14/16: colonoscopy). Extremities: without cyanosis or clubbing. 1+ peripheral edema LE B/L. No palpable cords. Mild DJD. No rash. No palmar erythema. No Dupuytren's contractures. Distal pulses 2+ bilaterally. DTRs 2+ bilaterally. Alert and oriented x 3. Right handed. No tremor. No asterixis. No cogwheeling or EPS signs. Motor 5/5 B/L. A detailed exam for peripheral neuropathy was deferred. Current Medications: Current Medications Sig/Lola Start time Last Medication Dose Route Stop Time Status Admin Acetaminophen 325 MG Q4P PRN 03/21 2115 AC 03/23 PO 0020 Adenosine 6 MG ONCE ONE 03/24 2345 CAN IV 03/24 234 Albumin Human 25 GM Q8 03/24 2200 AC 03/25 IV 0516 Ceftazidime 1,000 MG Q12H 03/23 0830 AC 03/24 IV 2106 Hydrocodone Bitart/ 1 TAB Q6P PRN 03/21 2100 AC 03/25 Acetaminophen PO 0035 Metoclopramide HCl 10 MG Q6P PRN 03/21 2315 AC 03/24 IV 1020 Metoprolol Tartrate 5 MG ONCE ONE 03/24 1745 CAN IV 03/24 1746 Metoprolol Tartrate 5 MG ONCE ONE 03/24 1730 DC 03/24 IV 03/24 1731 1722 Morphine Sulfate 2 MG Q4P PRN 03/21 2100 AC 03/24 IV 1000 Ondansetron HCl 4 MG .STK-MED ONE 03/24 1432 DC IM 03/24 1433 Ondansetron HCl 4 MG .STK-MED ONE 03/24 1017 DC IM 03/24 1018 Prochlorperazine 10 MG ONCE ONE 03/24 1700 DC IV 03/24 1701 Sevelamer Carbonate 1,600 MG WITH MEALS 03/24 1700 AC 03/24 PO 1812 Sodium Chloride 250 ML BOLUS ONE 03/24 2345 DC 03/25 IV 03/25 0044 0011 Sodium Chloride 1,000 ML Q13H 03/24 1445 AC 03/25 IV 0515 Verapamil HCl 180 MG DAILY 03/25 0745 AC PO Results Pertinent Lab Results: Laboratory Tests 03/25 03/24 03/24 0400 1732 1723 Chemistry Sodium (137 - 145 mmol/L) 138 139 Cancelled Potassium (3.5 - 5.1 mmol/L) 4.6 5.2 H Cancelled Chloride (98 - 107 mmol/L) 105 104 Cancelled Carbon Dioxide (22 - 30 mmol/L) 13 L 13 L Cancelled Anion Gap (5 - 16) 20 H 22 H Cancelled BUN (9 - 20 mg/dL) 102 *H 105 *H Cancelled Creatinine (0.7 - 1.2 mg/dL) 5.3 *H 4.9 H Cancelled Estimated GFR (>60 ml/min) 11 L 12 L BUN/Creatinine Ratio (7 - 25 %) 21.4 Cancelled Glucose (65 - 99 mg/dL) 87 Calcium (8.4 - 10.2 mg/dL) 7.9 L Phosphorus (2.5 - 4.5 mg/dL) 7.4 H 7.7 H Magnesium (1.6 - 2.3 mg/dL) 2.2 2.2 Total Bilirubin (0.2 - 1.3 mg/dL) 0.6 AST (17 - 59 U/L) 21 ALT (21 - 72 U/L) 31 Troponin I (<0.11 ng/ml) 0.05 Albumin (3.5 - 5.0 g/dL) 2.9 L Hematology CBC w Diff MAN DIFF ORDERED WBC (4.8 - 10.8 /CUMM) 6.8 RBC (4.70 - 6.10 /CUMM) 3.69 L Hgb (14.0 - 18.0 G/DL) 9.1 L Hct (42 - 52 %) 29.2 L MCV (80.0 - 94.0 FL) 79.2 L MCH (27.0 - 31.0 PG) 24.8 L RDW (11.5 - 14.5 %) 20.8 H Plt Count (130 - 400 /CUMM) 188 MPV (7.4 - 10.4 FL) 9.9 Segmented Neutrophils (42.2 - 75.2 %) 79 H Lymphocytes (20.5 - 51.1 %) 10 L Monocytes (1.7 - 9.3 %) 9 Metamyelocytes (0.0 - 1.0 %) 2 H Nucleated RBCs (0.0 - 0.0 /100WBC) 1 H Platelet Estimate (ADEQUATE) ADEQUATE Polychromasia 1+ Hypochromic-Microcytic 1+ Poikilocytosis 1+ Anisocytosis 1+ Microcytic Cells 1+ Target Cells FEW Stomatocytes FEW Lander Cells 1+ PUBS MCHC (33.0 - 37.0 G/DL) 31.2 L 03/24 03/23 0440 0430 Chemistry Sodium (137 - 145 mmol/L) 138 136 L Potassium (3.5 - 5.1 mmol/L) 4.8 5.0 Chloride (98 - 107 mmol/L) 104 104 Carbon Dioxide (22 - 30 mmol/L) 15 L 13 L Anion Gap (5 - 16) 19 H 19 H BUN (9 - 20 mg/dL) 98 H 92 H Creatinine (0.7 - 1.2 mg/dL) 4.9 H 4.6 H Estimated GFR (>60 ml/min) 12 L 13 L Glucose (65 - 99 mg/dL) 82 90 Calcium (8.4 - 10.2 mg/dL) 7.8 L 7.7 L Phosphorus (2.5 - 4.5 mg/dL) 8.2 H 7.9 H Magnesium (1.6 - 2.3 mg/dL) 2.2 2.3 Total Bilirubin (0.2 - 1.3 mg/dL) 0.5 0.5 AST (17 - 59 U/L) 28 27 ALT (21 - 72 U/L) 37 42 Albumin (3.5 - 5.0 g/dL) 2.7 L 2.8 L Hematology CBC w Diff MAN DIFF ORDERED MAN DIFF ORDERED WBC (4.8 - 10.8 /CUMM) 8.0 8.3 RBC (4.70 - 6.10 /CUMM) 3.64 L 3.78 L Hgb (14.0 - 18.0 G/DL) 9.1 L 9.6 L Hct (42 - 52 %) 28.8 L 29.9 L MCV (80.0 - 94.0 FL) 78.9 L 79.1 L MCH (27.0 - 31.0 PG) 25.0 L 25.4 L RDW (11.5 - 14.5 %) 19.6 H 19.7 H Plt Count (130 - 400 /CUMM) 163 187 MPV (7.4 - 10.4 FL) 10.4 10.5 H Segmented Neutrophils (42.2 - 75.2 %) 91 H 92 H Band Neutrophils (0.0 - 5.0 %) 1 Lymphocytes (20.5 - 51.1 %) 3 L 4 L Monocytes (1.7 - 9.3 %) 6 2 Metamyelocytes (0.0 - 1.0 %) 1 Platelet Estimate (ADEQUATE) ADEQUATE ADEQUATE Polychromasia 1+ Hypochromic-Microcytic 1+ 1+ Poikilocytosis 2+ Microcytic Cells 1+ Target Cells RARE Ovalocytes 1+ [place]hsan Cells 1+ 1+ Elliptocytes FEW PUBS MCHC (33.0 - 37.0 G/DL) 31.6 L 32.0 L Other Body Source Fld Total RBCs Counted (%) 100 Serology Hepatitis A IgM Ab (NONREACTIVE) NONREACTIVE Hep Bs Antigen (NONREACTIVE) NONREACTIVE Hep Bs Antibody (NONREACTIVE) NONREACTIVE Hep B Core IgM Ab Conf (NONREACTIVE) NONREACTIVE Hepatitis C Antibody (NONREACTIVE) NONREACTIVE Toxicology Random Vancomycin (ug/ml) 9.2 03/22 03/22 03/22 2049 1700 1645 Chemistry Sodium (137 - 145 mmol/L) 138 Potassium (3.5 - 5.1 mmol/L) 5.1 Chloride (98 - 107 mmol/L) 102 Carbon Dioxide (22 - 30 mmol/L) 17 L Anion Gap (5 - 16) 19 H BUN (9 - 20 mg/dL) 90 H Creatinine (0.7 - 1.2 mg/dL) 4.4 H Estimated GFR (>60 ml/min) 13 L Glucose (65 - 99 mg/dL) 92 Calcium (8.4 - 10.2 mg/dL) 7.7 L Phosphorus (2.5 - 4.5 mg/dL) 7.5 H Magnesium (1.6 - 2.3 mg/dL) 1.8 Total Bilirubin (0.2 - 1.3 mg/dL) 0.5 AST (17 - 59 U/L) 27 ALT (21 - 72 U/L) 34 Troponin I Cancelled Albumin (3.5 - 5.0 g/dL) 3.3 L Coagulation PT (9.4 - 12.5 SEC) 15.3 H INR (0.90 - 1.17) 1.46 H APTT (25 - 37 SEC) 30 Hematology CBC w Diff MAN DIFF ORDERED WBC (4.8 - 10.8 /CUMM) 7.5 RBC (4.70 - 6.10 /CUMM) 4.00 L Hgb (14.0 - 18.0 G/DL) 10.1 L Hct (42 - 52 %) 31.9 L MCV (80.0 - 94.0 FL) 79.7 L MCH (27.0 - 31.0 PG) 25.1 L RDW (11.5 - 14.5 %) 20.5 H Plt Count (130 - 400 /CUMM) 195 MPV (7.4 - 10.4 FL) 9.5 Segmented Neutrophils (42.2 - 75.2 %) 79 H Band Neutrophils (0.0 - 5.0 %) 10 H Lymphocytes (20.5 - 51.1 %) 6 L Monocytes (1.7 - 9.3 %) 4 Eosinophils (0 - 5.0 %) 1 Platelet Estimate (ADEQUATE) ADEQUATE Polychromasia 1+ Hypochromic-Microcytic 1+ Poikilocytosis 1+ Anisocytosis 1+ PUBS MCHC (33.0 - 37.0 G/DL) 31.5 L 03/22 03/22 03/22 1615 1533 UNK Hematology Lymphocytes (%) 1 % Normal PMNs (%) 91 Misc Hematology Test (%) Other Body Source Fluid WBC (0 - 5 /CUMM) 4250 H Fld Total RBCs Counted (0 /CUMM) 475 H Fluid Glucose (mg/dL) 78 Fluid Total Protein (g/dL) Cancelled 3.8 Fluid Albumin (g/dL) 1.8 Fluid LDH (U/L) 578 Imaging/Other Studies: 03/21/17: EKG- ST @ 105, normal axis, normal intervals, NSST, PRWP 03/21/17: XRY-PORTABLE CHEST XRAY- Low lung volumes with elevated right hemidiaphragm. No acute pulmonary findings. 03/21/17: CT ABDOMEN AND PELVIS WITHOUT CONTRAST- 1. Numerous cysts effectively replacing the normal hepatic and bilateral renal parenchyma, grossly similar compared to prior. There is a new hyperdense lesion in the right renal fossa which could represent a proteinaceous or hemorrhagic cyst however an underlying mass is not excluded. 2. Interval development of large amount of abdominopelvic ascites. 3. Stable position of a drainage catheter along the right hepatic dome. 03/22/17: ECHOCARDIOGRAM- CONCLUSIONS 1. This was a technically difficult study due to the patient's body habitus. 2. Aortic sclerosis is present with no valvular stenosis or insufficiency. 3. Mitral leaflet thickening is present with fibrosis of the chordal structures and mild systolic prolapse of the posterior leaflet with mild mitral insufficiency 4. a very small pericardial effusion is present which is hemodynamically insignificant. 5. The left ventricle chamber size and systolic function appear normal, 55-60%. There are no significant resting wall motion abnormalities. 6. The right heart structures are not well assessed. Minimal tricuspid insufficiency is present. The right ventricular systolic pressure could not be assessed by this examination. Bal Link M.D. 03/23/17: XRY-PORTABLE CHEST XRAY- Status post removal of Pleurx catheter, in PACU. New moderate to large right pleural effusion. Atelectasis of the right mid and lower lung as well as the left base. 03/23/17: ULTRASOUND-GUIDED RIGHT-SIDED CHEST TUBE PLACEMENT- Ultrasound-guided 10 Divehi right-sided chest tube placement. 03/24/17: XRY-PORTABLE CHEST XRAY- 1. Pigtail catheter is seen projected over the right lung base, presumably within a subpulmonic small pleural effusion. 2. Mild subsegmental atelectasis in the left CP angle. 3. Low lung volumes. 03/24/17: XRY-CHEST XRAY, TWO VIEWS- Low lung volumes with bibasilar subsegmental atelectasis. No significant pleural effusion or evidence of pneumothorax. A kink is noted in the pigtail catheter at the rib margin.
--- NOTE | 2017-03-25 09:52 | PN- Nephrology ---
Assessment/Plan Assessment: 1. SHELBY superimposed upon advanced chronic kidney disease, stage IV, secondary to autosomal dominant polycystic kidney disease. He is oligo-anuric. I do not foresee that he will recover any time soon. I'm quite concerned, walking in the room, that he has an emesis basin ready. 2. Peritonitis/infected catheter. I think now that the ceftaz and he needs to be dosed as with a dialysis patient. 3. Autosomal dominant polycystic kidney disease Suggestion: 1. Await Evin catheter 2. Will plan on dialysis tomorrow and again on Tuesday 3. Please add Nephro-Odette Rx with each dinner 4. May need to begin Epogen with dialysis 5. Maintain Renvela 2 with each meal Subjective Subjective: Patient seen. Still not making much urine. Discussed dialysis and the indications for dialysis. There is no absolute indication today, however, his renal function and urine output has not shown any sign of recovery. Objective Vital Signs and I&Os Vital Signs Date Time Temp Pulse Resp B/P B/P Pulse O2 O2 Flow FiO2 Mean Ox Delivery Rate 03/25 0700 97.9 95 28 118/68 95 Nasal 3.0L Cannula 03/25 0400 99 Nasal 2.0L Cannula 03/25 0000 95 Nasal 3.0L Cannula 03/24 2300 97.6 98 16 104/68 100 Nasal 3.0L Cannula 03/24 2000 100 Nasal 3.0L Cannula 03/24 1722 172 03/24 1600 96 Nasal 3.0L Cannula 03/24 1600 98.5 74 18 120/80 96 Nasal 3.0L Cannula Intake & Output 03/25 1600 03/25 0400 03/24 1600 03/24 0400 03/23 1600 03/23 0400 Intake Total 950 140 465 903 3281 1149 Output Total 156 920 8184 1400 1999 Balance 210 15 -790 -1288 -815 1149 Intake, IV 850 140 269 406 1378 669 Intake, Oral 100 450 0 480 Number 0 0 Bowel Movements Output, Chest 840 702 1651 1850 Tube Drainage Output, Urine 200 125 400 100 150 Patient 143 lb 163 lb Weight Weight Bed scale Measurement Method Physical Exam: General Appearance: well developed/nourished, no apparent distress, alert, awake. Head: atraumatic, normal appearance Eyes: Bilateral: PERRL, EOMI, pale conjunctivae. Ears, Nose, Throat: normal pharynx, normal ENT inspection, hearing grossly normal Neck: normal inspection, supple, full range of motion Respiratory: normal breath sounds, chest non-tender, lungs clear Cardiovascular: regular rate/rhythm no murmurs or rubs Gastrointestinal: normal bowel sounds, distention, hepatomegaly, palpable cysts, caput medusae Back: normal inspection, no vertebral tenderness Extremities: normal inspection now with jordy-ankle edema Neurologic/Psych: awake, alert, oriented x 3, No grosss neurologic deficit Cranial Nerves: normal hearing, normal speech, PERRL Skin: intact, normal color, warm/dry Current Medications: Current Medications Sig/Lola Start time Last Medication Dose Route Stop Time Status Admin Acetaminophen 325 MG Q4P PRN 03/21 2115 AC 03/23 PO 0020 Adenosine 6 MG ONCE ONE 03/24 2345 CAN IV 03/24 2346 Albumin Human 25 GM Q8 03/24 2200 AC 03/25 IV 0516 Ceftazidime 1,000 MG Q12H 03/23 0830 AC 03/24 IV 2106 Heparin Sodium 0 .STK-MED ONE 03/25 0932 DC (Porcine) IV Hydrocodone Bitart/ 1 TAB Q6P PRN 03/21 2100 AC 03/25 Acetaminophen PO 0035 Lidocaine 0 .STK-MED ONE 03/25 0932 DC .ROUTE Metoclopramide HCl 10 MG Q6P PRN 03/21 2315 AC 03/24 IV 1020 Metoprolol Tartrate 5 MG ONCE ONE 03/24 1745 CAN IV 03/24 1746 Metoprolol Tartrate 5 MG ONCE ONE 03/24 1730 DC 03/24 IV 03/24 1731 1722 Morphine Sulfate 2 MG Q4P PRN 03/21 2100 03/24 IV 1000 Ondansetron HCl 4 MG .STK-MED ONE 03/24 1432 DC IM 03/24 1433 Ondansetron HCl 4 MG .STK-MED ONE 03/24 1017 DC IM 03/24 1018 Prochlorperazine 10 MG ONCE ONE 03/24 1700 DC IV 03/24 1701 Sevelamer Carbonate 1,600 MG WITH MEALS 03/24 1700 AC 03/24 PO 1812 Sodium Chloride 250 ML BOLUS ONE 03/24 2345 DC 03/25 IV 03/25 0044 0011 Sodium Chloride 1,000 ML Q13H 03/24 1445 AC 03/25 IV 0515 Verapamil HCl 180 MG DAILY 03/25 0745 AC PO Results Pertinent Lab Results: Laboratory Tests 03/25 03/24 03/24 0400 1732 1723 Chemistry Sodium (137 - 145 mmol/L) 138 139 Cancelled Potassium (3.5 - 5.1 mmol/L) 4.6 5.2 H Cancelled Chloride (98 - 107 mmol/L) 105 104 Cancelled Carbon Dioxide (22 - 30 mmol/L) 13 L 13 L Cancelled Anion Gap (5 - 16) 20 H 22 H Cancelled BUN (9 - 20 mg/dL) 102 *H 105 *H Cancelled Creatinine (0.7 - 1.2 mg/dL) 5.3 *H 4.9 H Cancelled Estimated GFR (>60 ml/min) 11 L 12 L BUN/Creatinine Ratio (7 - 25 %) 21.4 Cancelled Glucose (65 - 99 mg/dL) 87 Calcium (8.4 - 10.2 mg/dL) 7.9 L Phosphorus (2.5 - 4.5 mg/dL) 7.4 H 7.7 H Magnesium (1.6 - 2.3 mg/dL) 2.2 2.2 Total Bilirubin (0.2 - 1.3 mg/dL) 0.6 AST (17 - 59 U/L) 21 ALT (21 - 72 U/L) 31 Troponin I (<0.11 ng/ml) 0.05 Albumin (3.5 - 5.0 g/dL) 2.9 L Hematology CBC w Diff MAN DIFF ORDERED WBC (4.8 - 10.8 /CUMM) 6.8 RBC (4.70 - 6.10 /CUMM) 3.69 L Hgb (14.0 - 18.0 G/DL) 9.1 L Hct (42 - 52 %) 29.2 L MCV (80.0 - 94.0 FL) 79.2 L MCH (27.0 - 31.0 PG) 24.8 L RDW (11.5 - 14.5 %) 20.8 H Plt Count (130 - 400 /CUMM) 188 MPV (7.4 - 10.4 FL) 9.9 Segmented Neutrophils (42.2 - 75.2 %) 79 H Lymphocytes (20.5 - 51.1 %) 10 L Monocytes (1.7 - 9.3 %) 9 Metamyelocytes (0.0 - 1.0 %) 2 H Nucleated RBCs (0.0 - 0.0 /100WBC) 1 H Platelet Estimate (ADEQUATE) ADEQUATE Polychromasia 1+ Hypochromic-Microcytic 1+ Poikilocytosis 1+ Anisocytosis 1+ Microcytic Cells 1+ Target Cells FEW Stomatocytes FEW [place] Cells 1+ PUBS MCHC (33.0 - 37.0 G/DL) 31.2 L 03/24 03/23 0440 0430 Chemistry Sodium (137 - 145 mmol/L) 138 136 L Potassium (3.5 - 5.1 mmol/L) 4.8 5.0 Chloride (98 - 107 mmol/L) 104 104 Carbon Dioxide (22 - 30 mmol/L) 15 L 13 L Anion Gap (5 - 16) 19 H 19 H BUN (9 - 20 mg/dL) 98 H 92 H Creatinine (0.7 - 1.2 mg/dL) 4.9 H 4.6 H Estimated GFR (>60 ml/min) 12 L 13 L Glucose (65 - 99 mg/dL) 82 90 Calcium (8.4 - 10.2 mg/dL) 7.8 L 7.7 L Phosphorus (2.5 - 4.5 mg/dL) 8.2 H 7.9 H Magnesium (1.6 - 2.3 mg/dL) 2.2 2.3 Total Bilirubin (0.2 - 1.3 mg/dL) 0.5 0.5 AST (17 - 59 U/L) 28 27 ALT (21 - 72 U/L) 37 42 Albumin (3.5 - 5.0 g/dL) 2.7 L 2.8 L Hematology CBC w Diff MAN DIFF ORDERED MAN DIFF ORDERED WBC (4.8 - 10.8 /CUMM) 8.0 8.3 RBC (4.70 - 6.10 /CUMM) 3.64 L 3.78 L Hgb (14.0 - 18.0 G/DL) 9.1 L 9.6 L Hct (42 - 52 %) 28.8 L 29.9 L MCV (80.0 - 94.0 FL) 78.9 L 79.1 L MCH (27.0 - 31.0 PG) 25.0 L 25.4 L RDW (11.5 - 14.5 %) 19.6 H 19.7 H Plt Count (130 - 400 /CUMM) 163 187 MPV (7.4 - 10.4 FL) 10.4 10.5 H Segmented Neutrophils (42.2 - 75.2 %) 91 H 92 H Band Neutrophils (0.0 - 5.0 %) 1 Lymphocytes (20.5 - 51.1 %) 3 L 4 L Monocytes (1.7 - 9.3 %) 6 2 Metamyelocytes (0.0 - 1.0 %) 1 Platelet Estimate (ADEQUATE) ADEQUATE ADEQUATE Polychromasia 1+ Hypochromic-Microcytic 1+ 1+ Poikilocytosis 2+ Microcytic Cells 1+ Target Cells RARE Ovalocytes 1+ [place] Cells 1+ 1+ Elliptocytes FEW PUBS MCHC (33.0 - 37.0 G/DL) 31.6 L 32.0 L Other Body Source Fld Total RBCs Counted (%) 100 Serology Hepatitis A IgM Ab (NONREACTIVE) NONREACTIVE Hep Bs Antigen (NONREACTIVE) NONREACTIVE Hep Bs Antibody (NONREACTIVE) NONREACTIVE Hep B Core IgM Ab Conf (NONREACTIVE) NONREACTIVE Hepatitis C Antibody (NONREACTIVE) NONREACTIVE Toxicology Random Vancomycin (ug/ml) 9.2 03/2209 03/22 2049 1700 1645 Chemistry Sodium (137 - 145 mmol/L) 138 Potassium (3.5 - 5.1 mmol/L) 5.1 Chloride (98 - 107 mmol/L) 102 Carbon Dioxide (22 - 30 mmol/L) 17 L Anion Gap (5 - 16) 19 H BUN (9 - 20 mg/dL) 90 H Creatinine (0.7 - 1.2 mg/dL) 4.4 H Estimated GFR (>60 ml/min) 13 L Glucose (65 - 99 mg/dL) 92 Calcium (8.4 - 10.2 mg/dL) 7.7 L Phosphorus (2.5 - 4.5 mg/dL) 7.5 H Magnesium (1.6 - 2.3 mg/dL) 1.8 Total Bilirubin (0.2 - 1.3 mg/dL) 0.5 AST (17 - 59 U/L) 27 ALT (21 - 72 U/L) 34 Troponin I Cancelled Albumin (3.5 - 5.0 g/dL) 3.3 L Coagulation PT (9.4 - 12.5 SEC) 15.3 H INR (0.90 - 1.17) 1.46 H APTT (25 - 37 SEC) 30 Hematology CBC w Diff MAN DIFF ORDERED WBC (4.8 - 10.8 /CUMM) 7.5 RBC (4.70 - 6.10 /CUMM) 4.00 L Hgb (14.0 - 18.0 G/DL) 10.1 L Hct (42 - 52 %) 31.9 L MCV (80.0 - 94.0 FL) 79.7 L MCH (27.0 - 31.0 PG) 25.1 L RDW (11.5 - 14.5 %) 20.5 H Plt Count (130 - 400 /CUMM) 195 MPV (7.4 - 10.4 FL) 9.5 Segmented Neutrophils (42.2 - 75.2 %) 79 H Band Neutrophils (0.0 - 5.0 %) 10 H Lymphocytes (20.5 - 51.1 %) 6 L Monocytes (1.7 - 9.3 %) 4 Eosinophils (0 - 5.0 %) 1 Platelet Estimate (ADEQUATE) ADEQUATE Polychromasia 1+ Hypochromic-Microcytic 1+ Poikilocytosis 1+ Anisocytosis 1+ PUBS MCHC (33.0 - 37.0 G/DL) 31.5 L 03/22 03/22 03/22 1615 1533 UNK Hematology Lymphocytes (%) 1 % Normal PMNs (%) 91 Misc Hematology Test (%) Other Body Source Fluid WBC (0 - 5 /CUMM) 4250 H Fld Total RBCs Counted (0 /CUMM) 475 H Fluid Glucose (mg/dL) 78 Fluid Total Protein (g/dL) Cancelled 3.8 Fluid Albumin (g/dL) 1.8 Fluid LDH (U/L) 578
--- NOTE | 2017-03-25 11:15 | PN- Infect Dx ---
Subjective Subjective: Afebrile. He does not report shortness of breath. He does note nausea with some abdominal discomfort. Objective Last 24 Hrs of Vital Signs/I&O Vital Signs Date Time Temp Pulse Resp B/P B/P Pulse O2 O2 Flow FiO2 Mean Ox Delivery Rate 03/25 0700 97.9 95 28 118/68 95 Nasal 3.0L Cannula 03/25 0400 99 Nasal 2.0L Cannula 03/25 0000 95 Nasal 3.0L Cannula 03/24 2300 97.6 98 16 104/68 100 Nasal 3.0L Cannula 03/24 2000 100 Nasal 3.0L Cannula 03/24 1722 172 03/24 1600 96 Nasal 3.0L Cannula 03/24 1600 98.5 74 18 120/80 96 Nasal 3.0L Cannula Intake & Output 03/25 1600 03/25 0800 03/25 0000 Intake Total 950 140 Output Total 740 125 Balance 210 15 Intake, IV 850 140 Intake, Oral 100 Output, Chest 540 Tube Drainage Output, Urine 200 125 Physical Exam Other Physical Findings: He appears comfortable in no acute distress Lungs decreased breath sounds at the right base; pigtail catheter in place with 960 mL output yesterday and 540 mL overnight Heart regular rhythm with no murmur Abdomen is markedly distended, nontender with positive bowel sounds Extremities 2-3+ edema both lower extremities, left greater than right Results Last 24 Hours of Lab Results: Laboratory Tests 03/25 03/24 03/24 0400 1732 1723 Chemistry Sodium (137 - 145 mmol/L) 138 139 Cancelled Potassium (3.5 - 5.1 mmol/L) 4.6 5.2 H Cancelled Chloride (98 - 107 mmol/L) 105 104 Cancelled Carbon Dioxide (22 - 30 mmol/L) 13 L 13 L Cancelled Anion Gap (5 - 16) 20 H 22 H Cancelled BUN (9 - 20 mg/dL) 102 *H 105 *H Cancelled Creatinine (0.7 - 1.2 mg/dL) 5.3 *H 4.9 H Cancelled Estimated GFR (>60 ml/min) 11 L 12 L BUN/Creatinine Ratio (7 - 25 %) 21.4 Cancelled Glucose (65 - 99 mg/dL) 87 Calcium (8.4 - 10.2 mg/dL) 7.9 L Phosphorus (2.5 - 4.5 mg/dL) 7.4 H 7.7 H Magnesium (1.6 - 2.3 mg/dL) 2.2 2.2 Total Bilirubin (0.2 - 1.3 mg/dL) 0.6 AST (17 - 59 U/L) 21 ALT (21 - 72 U/L) 31 Troponin I (<0.11 ng/ml) 0.05 Albumin (3.5 - 5.0 g/dL) 2.9 L Hematology CBC w Diff MAN DIFF ORDERED WBC (4.8 - 10.8 /CUMM) 6.8 RBC (4.70 - 6.10 /CUMM) 3.69 L Hgb (14.0 - 18.0 G/DL) 9.1 L Hct (42 - 52 %) 29.2 L MCV (80.0 - 94.0 FL) 79.2 L MCH (27.0 - 31.0 PG) 24.8 L RDW (11.5 - 14.5 %) 20.8 H Plt Count (130 - 400 /CUMM) 188 MPV (7.4 - 10.4 FL) 9.9 Segmented Neutrophils (42.2 - 75.2 %) 79 H Lymphocytes (20.5 - 51.1 %) 10 L Monocytes (1.7 - 9.3 %) 9 Metamyelocytes (0.0 - 1.0 %) 2 H Nucleated RBCs (0.0 - 0.0 /100WBC) 1 H Platelet Estimate (ADEQUATE) ADEQUATE Polychromasia 1+ Hypochromic-Microcytic 1+ Poikilocytosis 1+ Anisocytosis 1+ Microcytic Cells 1+ Target Cells FEW Stomatocytes FEW [place] Cells 1+ PUBS MCHC (33.0 - 37.0 G/DL) 31.2 L Last 24 Hours of [place] Results: Blood cultures March 22 negative Assessment/Plan Impression: Stable, with temperatures and white blood cell count remaining normal, on Ceftazidime for a gram-negative (Escherichia coli and pseudomonas) peritonitis secondary to the Pleurx catheter, status post removal in the OR 2 days ago because of its migration into the peritoneal cavity, which was followed by a steady flow of ascitic fluid through the diaphragm resulting in a large right pleural effusion, for which a pigtail catheter was placed, with a significant amount of drainage continuing, though his chest x-ray yesterday did show marked improvement. His renal function continues to deteriorate, possibly secondary to sepsis superimposed on his underlying polycystic kidney (and liver) disease, with plans for placement of a tunneled catheter today and probable dialysis in the a.m. Suggestion: 1. Further management of his chest tube and fistula per Thoracic surgery 2. Continue Ceftazidime
--- NOTE | 2017-03-25 13:11 | Cons- Cardiology ---
General Information and HPI Consulting Request Date of Consult: 03/25/17 Requested By: Suhail Morocho MD Reason for Consult: Nonsustained SVT Source of Information: patient, old records Exam Limitations: no limitations History of Present Illness: This is a pleasant 66-year-old gentleman presented in the emergency room complaining of nausea, and diarrhea and increased abdominal girth and distention for the past 24 hours. PMH: Polycystic kidney disease, cirrhosis/portal hypertension was evaluated in- year-old transplant organ recently according to patient biopsy was done and patient is currently not on any transplant list; x2 pleurex catheter on the right hemithorax: first one first one had migrated, but both remained he has scheduled drained of abdominal ascitic fluid Q tuesday; second catheter was placed on July 2016 and removed in February 2017 for recurrence pleural effusion and another intra abdominal pleurex catheter. His PCP is Dr. Lehman, and he also follows up with Dr. Lisha Moreland, Dr. Carson, Daryl Hearn MD, and Dr. Duque. From a cardiac standpoint, I have known the patient for a long time and he has never had any significant cardiac issues. 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 The patient was asymptomatic during the episodes. Allergies/Medications Allergies: Coded Allergies: NO KNOWN ALLERGIES (02/26/15) Home Med List: Furosemide 40 MG TABLET 1 TAB PO Tuesday WATER RETENTION (Reported) Hydrocodone/Acetaminophen ([place] 5-325 Tablet) 5 MG-325 MG TABLET 1-2 TAB PO Q4-6 PRN PRN PAIN Lisinopril (Prinivil) 20 MG TABLET 1 TAB PO DAILY HTN (Reported) Omeprazole 40 MG CAPSULE.DR 1 CAP PO DAILY GI (Reported) Sevelamer Carbonate (Renvela) 800 MG TABLET 1,600 MG PO WITH MEALS kidney Verapamil HCl (Verapamil Sr) 180 MG CAP24H.PEL 1 TAB PO DAILY HTN (Reported) Current Medications: Current Medications Sig/Lola Start time Last Medication Dose Route Stop Time Status Admin Acetaminophen 325 MG Q4P PRN 03/215 AC 03/23 PO 0020 Adenosine 6 MG ONCE ONE 03/24 2345 CAN IV 03/24 2346 Albumin Human 25 GM Q8 03/24 2200 AC 03/25 IV 0516 Ceftazidime 1,000 MG Q12H 03/23 0830 AC 03/24 IV 2106 Fentanyl Citrate 0 .STK-MED ONE 03/25 1027 DC .ROUTE Heparin Sodium 0 .STK-MED ONE 03/25 0932 DC (Porcine) IV Hydrocodone Bitart/ 1 TAB Q6P PRN 03/21 2100 AC 03/25 Acetaminophen PO 0035 Lidocaine 0 .STK-MED ONE 03/25 0932 DC .ROUTE Metoclopramide HCl 10 MG Q6P PRN 03/21 2315 AC 03/24 IV 1020 Metoprolol Tartrate 5 MG ONCE ONE 03/24 1745 CAN IV 03/24 1746 Metoprolol Tartrate 5 MG ONCE ONE 03/24 1730 DC 03/24 IV 03/24 1731 1722 Midazolam HCl 0 .STK-MED ONE 03/25 1028 DC .ROUTE Morphine Sulfate 2 MG Q4P PRN 03/21 2100 AC 03/24 IV 1000 Multivitamins 1 TAB WITH MEALS 03/25 1700 UNVr PO Ondansetron HCl 4 MG .STK-MED ONE 03/24 1432 DC IM 03/24 1433 Prochlorperazine 10 MG ONCE ONE 03/24 1700 DC IV 03/24 1701 Sevelamer Carbonate 1,600 MG WITH MEALS 03/24 1700 AC 03/24 PO 1812 Sodium Chloride 250 ML BOLUS ONE 03/24 2345 DC 03/25 IV 03/25 0044 0011 Sodium Chloride 1,000 ML Q13H 03/24 1445 AC 03/25 IV 0515 Verapamil HCl 180 MG DAILY 03/25 0745 AC PO Past History Travel History Traveled to [place] past 21 day No Medical History Blood Transfusion Hx: No Neurological: Sciatica EENT: NONE Cardiovascular: hypertension, hyperlipidemia Respiratory: NONE Gastrointestinal: INGUINAL HERNIA Hepatic: POLYCYSTIC LIVER ASCITES PLEUREX CATH DRAIN TO R ABD Ascites Renal: POLYCYSTIC KIDNEY Musculoskeletal: NONE Psychiatric: NONE Endocrine: NONE Blood Disorders: NONE Cancer(s): BASAL CELL CARCINOMA 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 SON ( has polycystic kidney disease). Relation not specified for: *No pertinent family history Psychosocial History Where Do You Live? Home Smoking Status: Never Smoked ETOH Use: denies use Illicit Drug Use: denies illicit drug use Functional Ability ADLs Independent: dressing, eating, toileting, bathing. Ambulation: independent IADLs Independent: shopping, housework, finances, food prep, telephone, transportation , medication admin. 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 Exam & Diagnostic Data Vital Signs and I&O Vital Signs Date Time Temp Pulse Resp B/P B/P Pulse O2 O2 Flow FiO2 Mean Ox Delivery Rate 03/25 0800 96 Nasal 3.0L Cannula 03/25 0700 97.9 95 28 118/68 95 Nasal 3.0L Cannula 03/25 0400 99 Nasal 2.0L Cannula 03/25 0000 95 Nasal 3.0L Cannula 03/24 2300 97.6 98 16 104/68 100 Nasal 3.0L Cannula 03/24 2000 100 Nasal 3.0L Cannula 03/24 1722 172 03/24 1600 96 Nasal 3.0L Cannula 03/24 1600 98.5 74 18 120/80 96 Nasal 3.0L Cannula Intake & Output 03/25 1600 03/25 0800 03/25 0000 03/24 1600 03/24 0800 03/24 0000 Intake Total 950 140 370 200 112 Output Total 740 705 039 6010 1400 Balance 210 15 210 -1000 -1288 Intake, IV 850 140 20 100 112 Intake, Oral 100 350 100 0 Number 0 0 0 Bowel Movements Output, Chest 540 60 900 1300 Tube Drainage Output, Urine 200 125 100 300 100 Patient 144 lb 143 lb Weight Weight Chair scale Measurement Method Physical Exam: General Appearance: Alert, Oriented X3, Cooperative, No Acute Distress, ill looking Skin Temp/Moisture Exam: Warm/Dry HEENT: Atraumatic, Mucous Membr. moist/pink Cardiovascular: Regular Rate, Normal S1, Normal S2, 1/6 systolic murmur Lungs: Clear to Auscultation and percussion bilaterally Abdomen: abdominal distention, mild tenderness no change compared to yesterday Neurological: grossly normal/nonfocal Extremities: trace - +1 edema bilateral leg Labs/Clarke Results: Laboratory Tests 03/25 03/24 03/24 0400 1732 1723 Chemistry Sodium (137 - 145 mmol/L) 138 139 Cancelled Potassium (3.5 - 5.1 mmol/L) 4.6 5.2 H Cancelled Chloride (98 - 107 mmol/L) 105 104 Cancelled Carbon Dioxide (22 - 30 mmol/L) 13 L 13 L Cancelled Anion Gap (5 - 16) 20 H 22 H Cancelled BUN (9 - 20 mg/dL) 102 *H 105 *H Cancelled Creatinine (0.7 - 1.2 mg/dL) 5.3 *H 4.9 H Cancelled Estimated GFR (>60 ml/min) 11 L 12 L BUN/Creatinine Ratio (7 - 25 %) 21.4 Cancelled Glucose (65 - 99 mg/dL) 87 Calcium (8.4 - 10.2 mg/dL) 7.9 L Phosphorus (2.5 - 4.5 mg/dL) 7.4 H 7.7 H Magnesium (1.6 - 2.3 mg/dL) 2.2 2.2 Total Bilirubin (0.2 - 1.3 mg/dL) 0.6 AST (17 - 59 U/L) 21 ALT (21 - 72 U/L) 31 Troponin I (<0.11 ng/ml) 0.05 Albumin (3.5 - 5.0 g/dL) 2.9 L Hematology CBC w Diff MAN DIFF ORDERED WBC (4.8 - 10.8 /CUMM) 6.8 RBC (4.70 - 6.10 /CUMM) 3.69 L Hgb (14.0 - 18.0 G/DL) 9.1 L Hct (42 - 52 %) 29.2 L MCV (80.0 - 94.0 FL) 79.2 L MCH (27.0 - 31.0 PG) 24.8 L RDW (11.5 - 14.5 %) 20.8 H Plt Count (130 - 400 /CUMM) 188 MPV (7.4 - 10.4 FL) 9.9 Segmented Neutrophils (42.2 - 75.2 %) 79 H Lymphocytes (20.5 - 51.1 %) 10 L Monocytes (1.7 - 9.3 %) 9 Metamyelocytes (0.0 - 1.0 %) 2 H Nucleated RBCs (0.0 - 0.0 /100WBC) 1 H Platelet Estimate (ADEQUATE) ADEQUATE Polychromasia 1+ Hypochromic-Microcytic 1+ Poikilocytosis 1+ Anisocytosis 1+ Microcytic Cells 1+ Target Cells FEW Stomatocytes FEW Ahsan Cells 1+ PUBS MCHC (33.0 - 37.0 G/DL) 31.2 L 03/24 0440 Chemistry Sodium (137 - 145 mmol/L) 138 Potassium (3.5 - 5.1 mmol/L) 4.8 Chloride (98 - 107 mmol/L) 104 Carbon Dioxide (22 - 30 mmol/L) 15 L Anion Gap (5 - 16) 19 H BUN (9 - 20 mg/dL) 98 H Creatinine (0.7 - 1.2 mg/dL) 4.9 H Estimated GFR (>60 ml/min) 12 L Glucose (65 - 99 mg/dL) 82 Calcium (8.4 - 10.2 mg/dL) 7.8 L Phosphorus (2.5 - 4.5 mg/dL) 8.2 H Magnesium (1.6 - 2.3 mg/dL) 2.2 Total Bilirubin (0.2 - 1.3 mg/dL) 0.5 AST (17 - 59 U/L) 28 ALT (21 - 72 U/L) 37 Albumin (3.5 - 5.0 g/dL) 2.7 L Hematology CBC w Diff MAN DIFF ORDERED WBC (4.8 - 10.8 /CUMM) 8.0 RBC (4.70 - 6.10 /CUMM) 3.64 L Hgb (14.0 - 18.0 G/DL) 9.1 L Hct (42 - 52 %) 28.8 L MCV (80.0 - 94.0 FL) 78.9 L MCH (27.0 - 31.0 PG) 25.0 L RDW (11.5 - 14.5 %) 19.6 H Plt Count (130 - 400 /CUMM) 163 MPV (7.4 - 10.4 FL) 10.4 Segmented Neutrophils (42.2 - 75.2 %) 91 H Lymphocytes (20.5 - 51.1 %) 3 L Monocytes (1.7 - 9.3 %) 6 Platelet Estimate (ADEQUATE) ADEQUATE Polychromasia 1+ Hypochromic-Microcytic 1+ Poikilocytosis 2+ Ovalocytes 1+ Buhler Cells 1+ PUBS MCHC (33.0 - 37.0 G/DL) 31.6 L Other Body Source Fld Total RBCs Counted (%) 100 Serology Hepatitis A IgM Ab (NONREACTIVE) NONREACTIVE Hep Bs Antigen (NONREACTIVE) NONREACTIVE Hep Bs Antibody (NONREACTIVE) NONREACTIVE Hep B Core IgM Ab Conf (NONREACTIVE) NONREACTIVE Hepatitis C Antibody (NONREACTIVE) NONREACTIVE Diagnostic Data EKG Results Rapid AVNRT with nonspecific ST-T changes Assessment/Plan Assessment/Plan Assessment: 1. Nonsustained superventricular tachycardia 2. Ascites with SBP vs Catheter-associated Peritonitis 3. Acute on chronic renal insufficiency with polycystic kidneys 4. Polycystic liver disease 5. Hyperkalemia 6. Microcytic anemia Recreations: -Keep the patient on congressional assistant -I suspect that the nonsustained SVT is likely related to underlying metabolic abnormalities. Continue to monitor potassium, magnesium, etc. -Consider addition of low-dose metoprolol to regimen (sees start with 6.25 mg twice a day and titrate slowly upwards as tolerated by heart rate and blood pressure" sees. Please note the patient does have mild resting sinus tachycardia. -For any episodes of sustained SVT, administer adenosine 6 mg IV -Further plans after the above. Consult Acknowledgment - Thank you for your consult request.
--- NOTE | 2017-03-25 15:43 | PN- Thoracic Surgery ---
Subjective Subjective: Breathing his stabilized. No significant dyspnea or respiratory distress Objective Vital Signs and I&Os Vital Signs Date Time Temp Pulse Resp B/P B/P Pulse O2 O2 Flow FiO2 Mean Ox Delivery Rate 03/25 1200 Nasal 3.0L Cannula 03/25 08 96 Nasal 3.0L Cannula 03/25 07 97.9 95 28 118/68 95 Nasal 3.0L Cannula 03/25 0400 99 Nasal 2.0L Cannula 03/25 0000 95 Nasal 3.0L Cannula 03/24 2300 97.6 98 16 104/68 100 Nasal 3.0L Cannula 03/24 2000 100 Nasal 3.0L Cannula 03/24 1722 172 03/24 1600 96 Nasal 3.0L Cannula 03/24 1600 98.5 74 18 120/80 96 Nasal 3.0L Cannula Intake & Output 03/25 1600 03/25 0800 03/25 0000 03/24 1600 03/24 0800 03/24 0000 Intake Total 950 140 370 200 112 Output Total 740 518 167 5737 1400 Balance 210 15 210 -1000 -1288 Intake, IV 850 140 20 100 112 Intake, Oral 100 350 100 0 Number 0 0 0 Bowel Movements Output, Chest 540 60 900 1300 Tube Drainage Output, Urine 200 125 100 300 100 Patient 144 lb 143 lb Weight Weight Chair scale Measurement Method Physical Exam: Breathing comfortably. Breath sounds equivalent bilaterally. The chest catheter has clear serous fluid. By nursing report 1 the patient was moved to a commode this morning there was a significant output which required changing of the Pleur-evac container Assessment/Plan Assessment/Plan Continued drainage via the chest catheter as a decompression of the ascites. He is headed towards dialysis and given that circumstance we will just continue to monitor with tube drainage and observation. I suspect that at some point surgical closure will be necessary.
--- NOTE | 2017-03-25 17:14 | ULTRASOUND REPORT ---
PROCEDURE: ULTRASOUND AND FLUOROSCOPICALLY GUIDED RIGHT INTERNAL JUGULAR VEIN TUNNELED PERMACATHETER PLACEMENT Interventional radiologist: Kaleb Johnson M.D. CLINICAL HISTORY: 66-year-old male with renal failure. Tunneled hemodialysis catheter requested. COMPARISON: Chest CT 10/14/2016 SEDATION: -Intravenous conscious sedation was not required for today's procedure. 50 mcg of fentanyl was administered intravenously by dedicated radiology nurse under my direct supervision. An independent third-alliance party monitor nurse was utilized for full clinical nurse monitoring. -1% lidocaine and lidocaine with epinephrine was also utilized for local anesthetic. FLUOROSCOPY TIME: 1 minute DOSE AREA PRODUCT: 2.1 mGy-m2 (milligray-meter squared) TECHNIQUE: Informed consent was obtained from the patient prior to the procedure. During this process, the procedure and potential alternatives were explained along with the intended outcome and benefits. The risks of the procedure, including the possibility of an unsuccessful procedure, as well as the risk of not doing the procedure were discussed. The patient was given the opportunity to ask questions regarding the procedure and appeared competent to make medical decisions. A signed consent form which documents this discussion was placed in the medical record. A timeout procedure was performed. Following informed consent the patient was placed supine on the fluoroscopic table. The right neck and chest were prepped and draped in usual sterile fashion. All elements of maximal sterile barrier technique were followed including use of cap, mask, sterile gown, sterile gloves, a sterile full body drape and hand hygiene. The skin was prepared with 2% chlorhexidine for cutaneous antisepsis and sterile ultrasound preparation with sterile gel and probe cover was performed when applicable. Using ultrasound guidance the right internal jugular vein was localized. Ultrasound was utilized to assess the vascular structures for access. A standard puncture into the right internal jugular vein was performed with a Micro-Stick system. Measurements were taken and the wire advanced down the IVC to confirm venous placement. 1% lidocaine with epinephrine was placed along the anterior chest wall tunneling site. A linear incision was made. The 19 cm tip to cuff tunneled hemodialysis catheter was tunneled in the subcutaneous tissues, exiting at the venotomy site. Serial dilatation was performed over the 0.035 inches wire. A peel-away sheath was placed over the wire and the catheter advanced down the peel-away sheath. The peel-away sheath was removed. Fluoroscopic imaging confirmed location of the catheter tip within the right atrium. Dermabond was utilized to close the venotomy site. Silk suture was utilized for catheter securement. The catheter was flushed with 500 units of heparin split between the 2 lumens for dwell. The patient tolerated the procedure well. The patient was transferred to the recovery room in good condition. ULTRASOUND-GUIDED VASCULAR ACCESS: Ultrasound was used to identify the right internal jugular vein. The right internal jugular vein was confirmed to be patent. Real time imaging confirmed needle access into the right internal jugular vein. An image was saved for permanent recording in PACS. IMPRESSION: Successful placement of 19 cm tip to cuff tunneled hemodialysis catheter using fluoroscopic and ultrasound guidance.
[2017-03-25 23:00] VITALS: BP 110/70
[2017-03-26 05:14] LABS: HEMATOCRIT 30.6 % (42-52); MEAN CORPUSCULAR HGB 24.8 PG (27.0-31.0); MEAN CORPUSCULAR HGB CONC 31.6 G/DL (33.0-37.0); MEAN CORPUSCULAR VOLUME 78.4 FL (80.0-94.0); MEAN PLATELET VOLUME 9.6 FL (7.4-10.4); PLATELET COUNT 177 /CUMM (130-400); RBC DISTRIBUTION WIDTH 21.2 % (11.5-14.5); WHITE BLOOD CELL COUNT 7.2 /CUMM (4.8-10.8)
[2017-03-26 07:00] VITALS: BP 98/64
--- NOTE | 2017-03-26 08:23 | PN- Resident CRCU ---
Carri Nino 03/26/17 0823: Subjective HPI/CRCU Issues: Possible catheter-associated Peritonitis SHELBY on CKD Hyperkalemia Acute hypoxic respiratory failure 24 Hour Events: His pigtail drained 300 cc last night, fluid level is 1050 ml now. Patient had one event of SVT last night and was given IV adenosine which terminated it. Patient is doing well this morning and has no complaints. His blood pressure is on the low side with 98/64 and patient is due for dialysis this afternoon. Objective Vital Signs & I&O Last 8 Hrs of Vitals and I&O: BP 98/64, saturating well on 3 L NC, afebrile. Exam General Appearance: well developed/nourished, no apparent distress, alert, awake Head: atraumatic, normal appearance Ears, Nose, Throat: normal pharynx Neck: normal inspection, supple Respiratory: normal breath sounds, chest non-tender Cardiovascular: regular rate/rhythm Gastrointestinal: patient has a distended abdomen. Current Medications: Current Medications Sig/Lola Start time Last Medication Dose Route Stop Time Status Admin Acetaminophen 325 MG Q4P PRN 03/21 2115 AC 03/23 PO 0020 Adenosine 6 MG ONCE ONE 03/26 0345 DC 03/26 IV 03/26 0346 0347 Albumin Human 25 GM Q8 03/24 2200 AC 03/26 IV 0602 Ceftazidime 1,000 MG Q24H 03/27 0800 AC IV Ceftazidime 1,000 MG Q12H 03/23 0830 DC 03/26 IV 0811 Hydrocodone Bitart/ 1 TAB Q6P PRN 03/21 2100 AC 03/25 Acetaminophen PO 0035 Labetalol HCl 5 MG ONCE ONE 03/26 0330 CAN IV 03/26 0331 Metoclopramide HCl 10 MG Q6P PRN 03/21 2315 AC 03/26 IV 0604 Metoprolol Tartrate 6.25 MG BID 03/25 2200 AC 03/25 PO 2135 Morphine Sulfate 2 MG Q4P PRN 03/21 2100 AC 03/25 IV 1800 Multivitamins 1 TAB WITH MEALS 03/25 1700 CAN PO Multivitamins 1 TAB 1700 03/25 1700 AC 03/25 PO 1734 Omeprazole 40 MG DAILY AC 03/25 1648 AC 03/26 PO 0602 Sevelamer Carbonate 1,600 MG WITH MEALS 03/24 1700 AC 03/26 PO 0810 Sodium Chloride 1,000 ML Q13H 03/24 1445 DC 03/25 IV 0515 Verapamil HCl 180 MG DAILY 03/25 0745 AC PO Impression/Plan Impression/Problem List Impression: Patient is 66 year old man admitted to ICU secondary to acute hypoxemic respiratory failure secondary to ascites that has traversed the diaphgragm causing ascitic fluid in the pleural cavity that is now growing pseudomonas, E.Coli - his respiratory failure has improved to a nasal cannula from a high flow oxygen cannula. Other active problems include; 1. Polycystic kidney and liver disease 2. unsustained SVT 3. Peritonitis secondary to an indwelling pleural catheter 4. SHELBY on CKD Plan Respiratory Patient is on 3 L of NC saturating well. He continues to have chest tube with 1050 ml of fluid output. Will follow up with surgical team regarding cath removal. Infectious disease -Patient is closely being followed by ID, his ceftazidime is decreased to 1 g / 24 hours. WBC count 7.2, patient has been afebrile. CVS- Non sustained SVT -Patient is started on low dose metoprolol for non-sustained SVT probably due to metabolic dearrangements Plan is to give IV adenosine in acute episode. Patient is closely being followed by a organizational development consultant. ICU bundle daily Heme -monitor cbc, coags Metabolic Patient has an jus cath and will undergo dialysis today. -Nephrology consult service on board. -With respect to the future we will treat the acute issues and once hopefully Mr. Tijerina recovers he should be evaluated for a liver/kidney transplantation, having said that the transplantation would be dependent on all of his comorbid conditions Alimentary -nutrition follow up -potassium restriction diet Neuro -no acute issues DVT prophylaixs at all times - chemical prophylaxis is held for IR procedure, in the meantime use ALPS Problem List: 1. Polycystic kidney disease 2. Polycystic liver disease Pain Ratin Pain Location: none Tomorrow's Labs & Rationales: cbc icu bundle Plan DVT/Prophylaxis: mechanical Allen LYONS,[facility] 03/26/17 1037: Attending MD Review Statement Attending Sign Off Attending Cosign Statement: I have: examined this patient, reviewed aval EMR data, personally reviewd images, discussd w/resident/PA/JAVA PROGRAMMER ANALYST, discussed mgmt plan w/klever, discussed mgmt plan w/CM, discussed mgmt plan w/pt, agreed w/resident/PA/JAVA PROGRAMMER ANALYST, amended to note. Other Findings: Seen and examined Family at the bed side Had an SVT event s/p adenosine Exam Emaciated gentleman Chest mild crackles Chest tube in place Abd distented with sig asitis mild tenderness Regular rate and rhythm AA x 3 IMPRESSION Mr. Tijerina is a 66 yo m with a PMH of PKD, Polycystic liver disease, portal HTN , HTN, HLD, umbilical hernia repair, colon ademona, GERD who presented to the ED with NVD with progressively worsened abdominal distention from ascitic fluid. ISsues Peritonitis with asitics hepatic hydrothorax PCKD with renal and liver dysfunction CKD with acute renal failure s/p tunneled cath SVT Electrolyte imbalance Anemia Cachexia REC Cont chest tube per cts REnal to see for dialysis cont abx per ID cont to encourage pt to eat will follow PT is critically ill, keep in icu tts 36 mins
--- NOTE | 2017-03-26 10:01 | PN- Infect Dx ---
Subjective Subjective: Afebrile without complaints Objective Last 24 Hrs of Vital Signs/I&O Vital Signs Date Time Temp Pulse Resp B/P B/P Pulse O2 O2 Flow FiO2 Mean Ox Delivery Rate 03/26 08 98 Nasal 3.0L Cannula 03/26 0700 97.2 92 19 98/64 98 Nasal 3.0L Cannula 03/26 0400 97 Nasal 3.0L Cannula 03/26 0347 97.2 182 20 99/76 03/26 0000 98 Nasal 3.0L Cannula 03/25 2300 97.5 96 12 110/70 98 Nasal 3.0L Cannula 03/25 2135 98.2 97 12 104/67 03/25 2000 98 Nasal 3.0L Cannula 03/25 1200 Nasal 3.0L Cannula Intake & Output 03/26 1600 03/26 0800 03/26 0000 Intake Total 250 220 Output Total 420 110 Balance -170 110 Intake, IV 100 120 Intake, Oral 150 100 Output, Chest 300 60 Tube Drainage Output, Urine 120 50 Physical Exam Other Physical Findings: He appears comfortable in no acute distress Neck right IJ tunneled catheter in place Lungs bibasilar crackles; pigtail catheter in the right chest with 2380 mL output yesterday and 300 mL overnight Heart regular rhythm with no murmur Abdomen is distended, nontender with positive bowel sounds Extremities 2+ edema both lower extremities Results Last 24 Hours of Lab Results: Laboratory Tests 03/26 399 Chemistry Sodium (137 - 145 mmol/L) 142 Potassium (3.5 - 5.1 mmol/L) 5.1 Chloride (98 - 107 mmol/L) 107 Carbon Dioxide (22 - 30 mmol/L) 11 L Anion Gap (5 - 16) 24 H BUN (9 - 20 mg/dL) 105 *H Creatinine (0.7 - 1.2 mg/dL) 5.6 *H Estimated GFR (>60 ml/min) 10 L Glucose (65 - 99 mg/dL) 85 Calcium (8.4 - 10.2 mg/dL) 8.5 Phosphorus (2.5 - 4.5 mg/dL) 8.3 H Magnesium (1.6 - 2.3 mg/dL) 2.2 Total Bilirubin (0.2 - 1.3 mg/dL) 0.9 AST (17 - 59 U/L) 19 ALT (21 - 72 U/L) 32 Albumin (3.5 - 5.0 g/dL) 3.5 Hematology CBC w Diff MAN DIFF ORDERED WBC (4.8 - 10.8 /CUMM) 7.2 RBC (4.70 - 6.10 /CUMM) 3.90 L Hgb (14.0 - 18.0 G/DL) 9.7 L Hct (42 - 52 %) 30.6 L MCV (80.0 - 94.0 FL) 78.4 L MCH (27.0 - 31.0 PG) 24.8 L RDW (11.5 - 14.5 %) 21.2 H Plt Count (130 - 400 /CUMM) 177 MPV (7.4 - 10.4 FL) 9.6 Segmented Neutrophils (42.2 - 75.2 %) 89 H Band Neutrophils (0.0 - 5.0 %) 1 Lymphocytes (20.5 - 51.1 %) 5 L Monocytes (1.7 - 9.3 %) 5 Nucleated RBCs (0.0 - 0.0 /100WBC) 1 H Platelet Estimate (ADEQUATE) ADEQUATE Hypochromic-Microcytic 1+ Ahsan Cells 2+ PUBS MCHC (33.0 - 37.0 G/DL) 31.6 L Last 24 Hours of Clarke Results: No new cultures Assessment/Plan Impression: Stable, with temperatures and white blood cell count remaining normal, on Ceftazidime for a gram-negative (Escherichia coli and pseudomonas) peritonitis secondary to a Pleurx catheter, status post its removal, in the OR, 3 days ago from the peritoneal cavity, where it had migrated, resulting in a large right pleural effusion secondary to flow of ascitic fluid through the diaphragm, with placement of a pigtail catheter, which continues to drain a significant amount of fluid. His renal function continues to deteriorate, possibly secondary to sepsis superimposed on his underlying polycystic kidney (and liver) disease, and he is scheduled for dialysis today. Suggestion: 1. Further management of his chest tube and the peritoneal -pleural fistula per Thoracic surgery 2. Await dialysis per Renal 3. Decrease Ceftazidime to 1 g IV every 24 hours
--- NOTE | 2017-03-26 12:38 | PN- Nephrology ---
Assessment/Plan Assessment: 1. SHELBY superimposed upon advanced chronic kidney disease, stage IV, secondary to autosomal dominant polycystic kidney disease. He is oligo-anuric. He is complaining of nausea today. Today, dialysis will be initiated. His next dialysis will likely be on Tuesday. 2. Peritonitis/infected catheter. 3. Autosomal dominant polycystic kidney disease Suggestion: 1. 2.5 hours of dialysis today. 2. Will plan on dialysis today and again on Tuesday 3. Will begin Epogen with his next hemodialysis 4. Maintain Renvela 2 with each meal. Phosphorus will be rechecked on Tuesday. Subjective Subjective: Patient seen. His breathing is better however he remains somewhat nauseated. That the nausea since will chrissy with initiation of hemodialysis. Objective Vital Signs and I&Os Vital Signs Date Time Temp Pulse Resp B/P B/P Pulse O2 O2 Flow FiO2 Mean Ox Delivery Rate 03/26 0800 98 Nasal 3.0L Cannula 03/26 0700 97.2 92 19 98/64 98 Nasal 3.0L Cannula 03/26 0400 97 Nasal 3.0L Cannula 03/26 0347 97.2 182 20 99/76 03/26 0000 98 Nasal 3.0L Cannula 03/25 2300 97.5 96 12 110/70 98 Nasal 3.0L Cannula 03/25 2135 98.2 97 12 104/67 03/25 2000 98 Nasal 3.0L Cannula Intake & Output 03/26 1600 03/26 0400 03/25 1600 03/25 0400 03/24 1600 03/24 0400 Intake Total 821 723 2148 140 570 112 Output Total 873 878 7425 125 1360 1400 Balance -170 110 -1145 15 -790 -1288 Intake, IV 113 571 7175 140 120 112 Intake, Oral 150 100 300 450 0 Number 1 0 0 Bowel Movements Output, Chest 842 84 4037 960 1300 Tube Drainage Output, Urine 120 50 200 125 400 100 Patient 145 lb 144 lb 143 lb Weight Weight Bed scale Chair scale Measurement Method Current Medications: Current Medications Sig/Lola Start time Last Medication Dose Route Stop Time Status Admin Acetaminophen 325 MG Q4P PRN 03/21 2114 AC 03/23 PO 0020 Adenosine 6 MG ONCE ONE 03/26 0345 DC 03/26 IV 03/26 034 0347 Albumin Human 25 GM Q8 03/24 220 AC 03/26 IV 0602 Ceftazidime 1,000 MG Q24H 03/27 0800 AC IV Ceftazidime 1,000 MG Q12H 03/23 0830 DC 03/26 IV 0811 Hydrocodone Bitart/ 1 TAB Q6P PRN 03/21 2100 AC 03/25 Acetaminophen PO 0035 Labetalol HCl 5 MG ONCE ONE 03/26 0330 CAN IV 03/26 0331 Metoclopramide HCl 10 MG Q6P PRN 03/21 2315 AC 03/26 IV 1204 Metoprolol Tartrate 6.25 MG BID 03/25 2200 AC 03/25 PO 2135 Morphine Sulfate 2 MG Q4P PRN 03/21 2100 AC 03/25 IV 1800 Multivitamins 1 TAB WITH MEALS 03/25 1700 CAN PO Multivitamins 1 TAB 1700 03/25 1700 AC 03/25 PO 1734 Omeprazole 40 MG DAILY AC 03/25 1648 AC 03/26 PO 0602 Sevelamer Carbonate 1,600 MG WITH MEALS 03/24 1700 AC 03/26 PO 0810 Sodium Chloride 1,000 ML Q13H 03/24 1445 DC 03/25 IV 0515 Verapamil HCl 180 MG DAILY 03/25 0745 AC PO Results Pertinent Lab Results: Laboratory Tests 03/26 03/25 0400 0400 Chemistry Sodium (137 - 145 mmol/L) 142 138 Potassium (3.5 - 5.1 mmol/L) 5.1 4.6 Chloride (98 - 107 mmol/L) 107 105 Carbon Dioxide (22 - 30 mmol/L) 11 L 13 L Anion Gap (5 - 16) 24 H 20 H BUN (9 - 20 mg/dL) 105 *H 102 *H Creatinine (0.7 - 1.2 mg/dL) 5.6 *H 5.3 *H Estimated GFR (>60 ml/min) 10 L 11 L Glucose (65 - 99 mg/dL) 85 87 Calcium (8.4 - 10.2 mg/dL) 8.5 7.9 L Phosphorus (2.5 - 4.5 mg/dL) 8.3 H 7.4 H Magnesium (1.6 - 2.3 mg/dL) 2.2 2.2 Total Bilirubin (0.2 - 1.3 mg/dL) 0.9 0.6 AST (17 - 59 U/L) 19 21 ALT (21 - 72 U/L) 32 31 Albumin (3.5 - 5.0 g/dL) 3.5 2.9 L Hematology CBC w Diff MAN DIFF ORDERED MAN DIFF ORDERED WBC (4.8 - 10.8 /CUMM) 7.2 6.8 RBC (4.70 - 6.10 /CUMM) 3.90 L 3.69 L Hgb (14.0 - 18.0 G/DL) 9.7 L 9.1 L Hct (42 - 52 %) 30.6 L 29.2 L MCV (80.0 - 94.0 FL) 78.4 L 79.2 L MCH (27.0 - 31.0 PG) 24.8 L 24.8 L RDW (11.5 - 14.5 %) 21.2 H 20.8 H Plt Count (130 - 400 /CUMM) 177 188 MPV (7.4 - 10.4 FL) 9.6 9.9 Segmented Neutrophils (42.2 - 75.2 %) 89 H 79 H Band Neutrophils (0.0 - 5.0 %) 1 Lymphocytes (20.5 - 51.1 %) 5 L 10 L Monocytes (1.7 - 9.3 %) 5 9 Metamyelocytes (0.0 - 1.0 %) 2 H Nucleated RBCs (0.0 - 0.0 /100WBC) 1 H 1 H Platelet Estimate (ADEQUATE) ADEQUATE ADEQUATE Polychromasia 1+ Hypochromic-Microcytic 1+ 1+ Poikilocytosis 1+ Anisocytosis 1+ Microcytic Cells 1+ Target Cells FEW Stomatocytes FEW Ahsan Cells 2+ 1+ PUBS MCHC (33.0 - 37.0 G/DL) 31.6 L 31.2 L 03/24 03/24 03/24 1732 1723 0440 Chemistry Sodium (137 - 145 mmol/L) 139 Cancelled 138 Potassium (3.5 - 5.1 mmol/L) 5.2 H Cancelled 4.8 Chloride (98 - 107 mmol/L) 104 Cancelled 104 Carbon Dioxide (22 - 30 mmol/L) 13 L Cancelled 15 L Anion Gap (5 - 16) 22 H Cancelled 19 H BUN (9 - 20 mg/dL) 105 *H Cancelled 98 H Creatinine (0.7 - 1.2 mg/dL) 4.9 H Cancelled 4.9 H Estimated GFR (>60 ml/min) 12 L 12 L BUN/Creatinine Ratio (7 - 25 %) 21.4 Cancelled Glucose (65 - 99 mg/dL) 82 Calcium (8.4 - 10.2 mg/dL) 7.8 L Phosphorus (2.5 - 4.5 mg/dL) 7.7 H 8.2 H Magnesium (1.6 - 2.3 mg/dL) 2.2 2.2 Total Bilirubin (0.2 - 1.3 mg/dL) 0.5 AST (17 - 59 U/L) 28 ALT (21 - 72 U/L) 37 Troponin I (<0.11 ng/ml) 0.05 Albumin (3.5 - 5.0 g/dL) 2.7 L Hematology CBC w Diff MAN DIFF ORDERED WBC (4.8 - 10.8 /CUMM) 8.0 RBC (4.70 - 6.10 /CUMM) 3.64 L Hgb (14.0 - 18.0 G/DL) 9.1 L Hct (42 - 52 %) 28.8 L MCV (80.0 - 94.0 FL) 78.9 L MCH (27.0 - 31.0 PG) 25.0 L RDW (11.5 - 14.5 %) 19.6 H Plt Count (130 - 400 /CUMM) 163 MPV (7.4 - 10.4 FL) 10.4 Segmented Neutrophils (42.2 - 75.2 %) 91 H Lymphocytes (20.5 - 51.1 %) 3 L Monocytes (1.7 - 9.3 %) 6 Platelet Estimate (ADEQUATE) ADEQUATE Polychromasia 1+ Hypochromic-Microcytic 1+ Poikilocytosis 2+ Ovalocytes 1+ [place] Cells 1+ PUBS MCHC (33.0 - 37.0 G/DL) 31.6 L Other Body Source Fld Total RBCs Counted (%) 100 Serology Hepatitis A IgM Ab (NONREACTIVE) NONREACTIVE Hep Bs Antigen (NONREACTIVE) NONREACTIVE Hep Bs Antibody (NONREACTIVE) NONREACTIVE Hep B Core IgM Ab Conf (NONREACTIVE) NONREACTIVE Hepatitis C Antibody (NONREACTIVE) NONREACTIVE
--- NOTE | 2017-03-26 12:54 | PN- Thoracic Surgery ---
Subjective Subjective: Currently on dialysis. Tolerating well with no complaints. His breathing has been stable. Objective Vital Signs and I&Os Vital Signs Date Time Temp Pulse Resp B/P B/P Pulse O2 O2 Flow FiO2 Mean Ox Delivery Rate 03/26 1200 100 Nasal 2.0L Cannula 03/26 0800 98 Nasal 3.0L Cannula 03/26 07 97.2 92 19 98/64 98 Nasal 3.0L Cannula 03/26 0400 97 Nasal 3.0L Cannula 03/26 0347 97.2 182 20 99/76 03/26 0000 98 Nasal 3.0L Cannula 03/25 2300 97.5 96 12 110/70 98 Nasal 3.0L Cannula 03/25 2135 98.2 97 12 104/67 03/25 2000 98 Nasal 3.0L Cannula Intake & Output 03/26 1600 03/26 0800 03/26 0000 03/25 1600 03/25 0800 03/25 0000 Intake Total 250 220 425 950 140 Output Total 886 269 6948 740 125 Balance -170 110 -1355 210 15 Intake, IV 100 120 225 850 140 Intake, Oral 150 100 200 100 Number 1 Bowel Movements Output, Chest 347 03 7244 540 Tube Drainage Output, Urine 120 50 200 125 Patient 145 lb 144 lb Weight Weight Bed scale Chair scale Measurement Method Physical Exam: Breath sounds clear. No significant dyspnea. There is clear serous drainage in the Pleur-evac. By nursing report it seems to come in episodic volumes rather than as a constant drainage. Current Medications: Current Medications Sig/Lola Start time Last Medication Dose Route Stop Time Status Admin Acetaminophen 325 MG Q4P PRN 03/21 2115 AC 03/23 PO 0020 Adenosine 6 MG ONCE ONE 03/26 0345 DC 03/26 IV 03/26 0346 0347 Albumin Human 25 GM Q8 03/24 2200 AC 03/26 IV 0602 Ceftazidime 1,000 MG Q24H 03/27 0800 AC IV Ceftazidime 1,000 MG Q12H 03/23 0830 DC 03/26 IV 0811 Hydrocodone Bitart/ 1 TAB Q6P PRN 03/21 2100 AC 03/25 Acetaminophen PO 0035 Labetalol HCl 5 MG ONCE ONE 03/26 0330 CAN IV 03/26 0331 Metoclopramide HCl 10 MG Q6P PRN 03/21 2315 AC 03/26 IV 1204 Metoprolol Tartrate 6.25 MG BID 03/25 2200 AC 03/25 PO 2135 Morphine Sulfate 2 MG Q4P PRN 03/21 2100 AC 03/25 IV 1800 Multivitamins 1 TAB WITH MEALS 03/25 1700 CAN PO Multivitamins 1 TAB 1700 03/25 1700 AC 03/25 PO 1734 Omeprazole 40 MG DAILY AC 03/25 1648 AC 03/26 PO 0602 Sevelamer Carbonate 1,600 MG WITH MEALS 03/24 1700 AC 03/26 PO 0810 Sodium Chloride 1,000 ML Q13H 03/24 1445 DC 03/25 IV 0515 Verapamil HCl 180 MG DAILY 03/25 0745 AC PO Assessment/Plan Assessment/Plan 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 Is clinically stable and initiating dialysis. We will make a decision next week in regards to the need for possible surgical intervention.
--- NOTE | 2017-03-26 15:09 | PN- Cardiology ---
Subjective Subjective: Awake and alert. Awaiting dialysis. No specific complaints. Had protracted though nonsustained SVT last evening which required adenosine. Objective Vital Signs and I&Os Vital Signs Date Time Temp Pulse Resp B/P B/P Pulse O2 O2 Flow FiO2 Mean Ox Delivery Rate 03/26 1200 100 Nasal 2.0L Cannula 03/26 0800 98 Nasal 3.0L Cannula 03/26 0700 97.2 92 19 98/64 98 Nasal 3.0L Cannula 03/26 0400 97 Nasal 3.0L Cannula 03/26 0347 97.2 182 20 99/76 03/26 0000 98 Nasal 3.0L Cannula 03/25 2300 97.5 96 12 110/70 98 Nasal 3.0L Cannula 03/25 2135 98.2 97 12 104/67 03/25 2000 98 Nasal 3.0L Cannula Intake & Output 03/26 1600 03/26 0800 03/26 0000 03/25 1600 03/25 0800 03/25 0000 Intake Total 50 250 220 425 950 140 Output Total 90 040 309 0941 740 125 Balance -40 -170 110 -1355 210 15 Intake, IV 100 120 225 850 140 Intake, Oral 50 150 100 200 100 Number 1 1 Bowel Movements Output, Chest 60 184 04 5803 540 Tube Drainage Output, Urine 30 120 50 200 125 Patient 145 lb 144 lb Weight Weight Bed scale Chair scale Measurement Method Physical Exam: General Appearance: Alert, Oriented X3, Cooperative, No Acute Distress, ill looking Skin Temp/Moisture Exam: Warm/Dry HEENT: Atraumatic, Mucous Membr. moist/pink Cardiovascular: Regular Rate, Normal S1, Normal S2, 1/6 systolic murmur Lungs: Clear to Auscultation and percussion bilaterally Abdomen: abdominal distention, mild tenderness no change compared to yesterday Neurological: grossly normal/nonfocal Extremities: trace - +1 edema bilateral leg Current Medications: Current Medications Sig/Lola Start time Last Medication Dose Route Stop Time Status Admin Acetaminophen 325 MG Q4P PRN 03/21 2114 AC 03/23 PO 0020 Adenosine 6 MG ONCE ONE 03/26 344 DC 03/26 IV 03/26 345 0347 Albumin Human 25 GM Q8 03/24 2200 AC 03/26 IV 1440 Ceftazidime 1,000 MG Q24H 03/27 08 AC IV Ceftazidime 1,000 MG Q12H 03/23 0830 DC 03/26 IV 0811 Hydrocodone Bitart/ 1 TAB Q6P PRN 03/21 2100 AC 03/25 Acetaminophen PO 0035 Labetalol HCl 5 MG ONCE ONE 03/26 0330 CAN IV 03/26 0331 Metoclopramide HCl 10 MG Q6P PRN 03/21 2315 AC 03/26 IV 1204 Metoprolol Tartrate 6.25 MG BID 03/25 2200 AC 03/25 PO 2135 Morphine Sulfate 2 MG Q4P PRN 03/21 2100 AC 03/25 IV 1800 Multivitamins 1 TAB 1700 03/25 1700 AC 03/25 PO 1734 Omeprazole 40 MG DAILY AC 03/25 1648 AC 03/26 PO 0602 Sevelamer Carbonate 1,600 MG WITH MEALS 03/24 1700 AC 03/26 PO 0810 Verapamil HCl 180 MG DAILY 03/25 0745 AC PO Results Last 48 Hrs of Labs/Mics: Laboratory Tests 03/26/17 1236: Iron 20 L, TIBC 166 L, Ferritin 131.0 03/26/17 0400: Anion Gap 24 H, Estimated GFR 10 L, Glucose 85, Calcium 8.5, Phosphorus 8.3 H , Magnesium 2.2, Total Bilirubin 0.9, AST 19, ALT 32, Albumin 3.5, CBC w Diff MAN DIFF ORDERED, RBC 3.90 L, MCV 78.4 L, MCH 24.8 L, RDW 21.2 H, MPV 9.6, Segmented Neutrophils 89 H, Band Neutrophils 1, Lymphocytes 5 L, Monocytes 5, Nucleated RBCs 1 H, Platelet Estimate ADEQUATE, Hypochromic-Microcytic 1+, Ahsan Cells 2+, PUBS MCHC 31.6 L 03/25/17 0400: Anion Gap 20 H, Estimated GFR 11 L, Glucose 87, Calcium 7.9 L, Phosphorus 7.4 H, Magnesium 2.2, Total Bilirubin 0.6, AST 21, ALT 31, Albumin 2.9 L, CBC w Diff MAN DIFF ORDERED, RBC 3.69 L, MCV 79.2 L, MCH 24.8 L, RDW 20.8 H, MPV 9.9, Segmented Neutrophils 79 H, Lymphocytes 10 L, Monocytes 9, Metamyelocytes 2 H, Nucleated RBCs 1 H, Platelet Estimate ADEQUATE, Polychromasia 1+, Hypochromic-Microcytic 1+, Poikilocytosis 1+, Anisocytosis 1+, Microcytic Cells 1+, Target Cells FEW, Stomatocytes FEW, Ahsan Cells 1+, PUBS MCHC 31.2 L 03/24/17 1732: Anion Gap 22 H, Estimated GFR 12 L, BUN/Creatinine Ratio 21.4, Phosphorus 7.7 H, Magnesium 2.2, Troponin I 0.05 03/24/17 1723: Sodium Cancelled, Potassium Cancelled, Chloride Cancelled, Carbon Dioxide Cancelled, Anion Gap Cancelled, BUN Cancelled, Creatinine Cancelled, BUN/ Creatinine Ratio Cancelled Assessment/Plan Assessment/Plan Assessment: 1. Nonsustained superventricular tachycardia 2. Ascites with SBP vs Catheter-associated Peritonitis 3. Acute on chronic renal insufficiency with polycystic kidneys 4. Polycystic liver disease 5. Hyperkalemia 6. Microcytic anemia Recreations: -Keep the patient on can tester -I suspect that the nonsustained SVT is likely related to underlying metabolic abnormalities. Continue to monitor potassium, magnesium, etc. -If tolerated by blood pressure, consider increasing metoprolol to 12.5 mg twice a day. -For any episodes of sustained SVT, administer adenosine 6 mg IV; not IV Lopressor since it seems ineffective in resolving the patient's rhythm disorder. -Further plans after the above. Continue telemetry? Yes
[2017-03-26 16:00] VITALS: BP 120/64
[2017-03-26 23:00] VITALS: BP 90/58
[2017-03-27 03:32] LABS: ABSOLUTE BASOPHIL COUNT 0 /CUMM (0.0-0.2); ABSOLUTE EOSINOPHIL COUNT 0 /CUMM (0.0-0.7); ABSOLUTE GRANULOCYTE CT 7.3 /CUMM (1.4-6.5); ABSOLUTE LYMPH COUNT 1.1 /CUMM (1.2-3.4); ABSOLUTE MONOCYTE COUNT 0.9 /CUMM (0.10-0.60); BASOPHIL % 0 % (0.0-2.0); EOSINOPHIL % 0.4 % (0-5); GRANULOCYTE % 77.5 % (42.2-75.2); MEAN CORPUSCULAR HGB 24.3 PG (27.0-31.0); MEAN CORPUSCULAR HGB CONC 31.3 G/DL (33.0-37.0); MEAN CORPUSCULAR VOLUME 77.6 FL (80.0-94.0); MEAN PLATELET VOLUME 9.9 FL (7.4-10.4); PLATELET COUNT 195 /CUMM (130-400); RBC DISTRIBUTION WIDTH 20.8 % (11.5-14.5); RED BLOOD CELL CT 3.73 /CUMM (4.70-6.10); WHITE BLOOD CELL COUNT 9.4 /CUMM (4.8-10.8)
[2017-03-27 08:00] VITALS: BP 108/60
--- NOTE | 2017-03-27 08:45 | PN- Resident CRCU ---
Subjective HPI/CRCU Issues: Possible catheter-associated Peritonitis SHELBY on CKD Hyperkalemia-resolved Acute hypoxic respiratory failure 24 Hour Events: The patient was seen and examined. He offers no complaints. He denies any headache, nausea, vomiting, dizziness, lightheadedness, chest pain , palpitation, shortness of breath, abdominal pain, urinary symptoms. Vital signs stable. No further episodes of SVT so far. Objective Vital Signs & I&O Last 8 Hrs of Vitals and I&O: Vital Signs Date Time Temp Pulse Resp B/P B/P Pulse O2 O2 Flow FiO2 Mean Ox Delivery Rate 03/27 0953 87 103/68 03/27 0800 98 Nasal 1.0L Cannula 03/27 0800 98.0 90 14 108/60 98 Nasal 1.0L Cannula 03/27 0400 99 Nasal 1.0L Cannula 03/27 0000 96 Nasal 1.0L Cannula 03/26 2300 97.3 81 20 90/58 97 Nasal 1.0L Cannula 03/26 2118 86 20 93/62 03/26 2000 97 Nasal 1.0L Cannula 03/26 1657 108 130/70 03/26 1657 108 130/70 03/26 1600 96 Nasal 2.0L Cannula 03/26 1600 97.0 106 14 120/64 100 Nasal 4.0L Cannula 03/26 1200 100 Nasal 2.0L Cannula Intake & Output 03/27 1600 03/27 0800 03/27 0000 Intake Total 200 200 Output Total 20 1790 Balance 180 -1590 Intake, IV 100 200 Intake, Oral 100 Number 2 Bowel Movements Output, Chest 20 40 Tube Drainage Output, 1400 Dialysate Output, Urine 0 350 Exam General Appearance: no apparent distress, alert Head: atraumatic Neck: normal inspection, supple Respiratory: normal breath sounds, chest non-tender, no respiratory distress Cardiovascular: regular rate/rhythm, No murmur Gastrointestinal: normal bowel sounds, non-tender, no organomegaly, distention Extremities: no edema Skin: intact Current Medications: Current Medications Sig/Lola Start time Last Medication Dose Route Stop Time Status Admin Acetaminophen 325 MG .STK-MED ONE 03/26 1704 DC PO 03/26 170 Acetaminophen 325 MG Q4P PRN 03/21 211 AC 03/26 PO 1707 Albumin Human 25 GM Q8 03/24 2200 AC 03/27 IV 0627 Ceftazidime 1,000 MG Q24H 03/27 0800 AC 03/27 IV 0811 Hydrocodone Bitart/ 1 TAB Q6P PRN 03/21 2100 AC 03/25 Acetaminophen PO 0035 Metoclopramide HCl 10 MG .STK-MED ONE 03/27 0012 DC IM 03/27 0013 Metoclopramide HCl 10 MG .STK-MED ONE 03/26 1752 DC IM 03/26 1753 Metoclopramide HCl 10 MG .STK-MED ONE 03/26 1200 DC IM 03/26 1201 Metoclopramide HCl 10 MG Q6P PRN 03/21 2315 AC 03/27 IV 0627 Metoprolol Tartrate 6.25 MG BID 03/25 2200 AC 03/26 PO 2118 Morphine Sulfate 2 MG Q4P PRN 03/21 2100 AC 03/25 IV 1800 Multivitamins 1 TAB 1700 03/25 1700 AC 03/26 PO 1653 Omeprazole 40 MG DAILY AC 03/25 1648 AC 03/27 PO 0708 Sevelamer Carbonate 1,600 MG WITH MEALS 03/24 1700 AC 03/27 PO 0811 Verapamil HCl 180 MG DAILY 03/25 0745 AC 03/27 PO 0953 Impression/Plan Impression/Problem List Impression: This is a 66 year old man admitted to ICU secondary to acute hypoxemic respiratory failure secondary to ascites that has traversed the diaphgragm causing ascitic fluid in the pleural cavity that is now growing pseudomonas, E.Coli - his respiratory failure has improved to a nasal cannula from a high flow oxygen cannula. Other active problems include; #Polycystic kidney and liver disease #Non-sustained SVT #Peritonitis secondary to an indwelling pleural catheter #SHELBY on CKD Problem List: 1. Peritonitis 2. Renal insufficiency Pain Ratin Tomorrow's Labs & Rationales: CBC to monitor H&H BEP to monitor electrolytes Plan Respiratory: * 3 L of NC saturating well. * Follow up with surgical team regarding cath removal Infectious Diseases: * Patient is closely being followed by ID * C/w ceftazidime 1 g / 24 hours * WBC count 9.4, has remained afebrile Cardiovascular: * Patient is on low dose metoprolol for non-sustained SVT probably due to metabolic dearrangements * Plan is to give IV adenosine in acute episode. * Patient is closely being followed by a ornamenter hand. * ICU bundle daily Hematology: * Monitor cbc, coags Metabolic: * Patient has an jus cath for dialysis * Nephrology consult appreciated. * He should be evaluated for a liver/kidney transplantation, after this acute phase recovery dependent on all of his comorbid conditions. Alimentary: * Nutrition follow up * Potassium restricted diet Neurological: * No acute issues DVT/Prophylaxis: mechanical
--- NOTE | 2017-03-27 11:25 | PN- CRCU ---
Subjective HPI/Critical Care Issues: Sleeping Hd dialysis yesterday Objective Current Medications: Current Medications Sig/Lola Start time Last Medication Dose Route Stop Time Status Admin Acetaminophen 325 MG .STK-MED ONE 03/26 1704 DC PO 03/26 1705 Acetaminophen 325 MG Q4P PRN 03/21 2115 AC 03/26 PO 1707 Albumin Human 25 GM Q8 03/24 2200 AC 03/27 IV 0627 Ceftazidime 1,000 MG Q24H 03/27 0800 AC 03/27 IV 0811 Hydrocodone Bitart/ 1 TAB Q6P PRN 03/21 2100 AC 03/25 Acetaminophen PO 0035 Metoclopramide HCl 10 MG .STK-MED ONE 03/27 0012 DC IM 03/27 0013 Metoclopramide HCl 10 MG .STK-MED ONE 03/26 1752 DC IM 03/26 1753 Metoclopramide HCl 10 MG .STK-MED ONE 03/26 1200 DC IM 03/26 1201 Metoclopramide HCl 10 MG Q6P PRN 03/21 2315 AC 03/27 IV 0627 Metoprolol Tartrate 6.25 MG BID 03/25 2200 AC 03/26 PO 2118 Morphine Sulfate 2 MG Q4P PRN 03/21 2100 AC 03/25 IV 1800 Multivitamins 1 TAB 1700 03/25 1700 AC 03/26 PO 1653 Omeprazole 40 MG DAILY AC 03/25 1648 AC 03/27 PO 0708 Sevelamer Carbonate 1,600 MG WITH MEALS 03/24 1700 AC 03/27 PO 0811 Verapamil HCl 180 MG DAILY 03/25 0745 AC 03/27 PO 0953 Vital Signs & I&O Last 24 Hrs of Vitals and I&O: Vital Signs Date Time Temp Pulse Resp B/P B/P Pulse O2 O2 Flow FiO2 Mean Ox Delivery Rate 03/27 0953 87 103/68 03/27 0800 98 Nasal 1.0L Cannula 03/27 0800 98.0 90 14 108/60 98 Nasal 1.0L Cannula 03/27 0400 99 Nasal 1.0L Cannula 03/27 0000 96 Nasal 1.0L Cannula 03/26 2300 97.3 81 20 90/58 97 Nasal 1.0L Cannula 03/26 2117 86 20 93/62 03/26 2000 97 Nasal 1.0L Cannula 01/13 1657 108 130/70 01/13 1657 108 130/70 03/26 1600 96 Nasal 2.0L Cannula 03/26 1600 97.0 106 14 120/64 100 Nasal 4.0L Cannula 03/26 1200 100 Nasal 2.0L Cannula Intake & Output 03/27 1600 03/27 0800 03/27 0000 Intake Total 200 200 Output Total 20 1790 Balance 180 -1590 Intake, IV 100 200 Intake, Oral 100 Number 2 Bowel Movements Output, Chest 20 40 Tube Drainage Output, 1400 Dialysate Output, Urine 0 350 Impression/Plan Impression/Plan Impression/Plan: Emaciated gentleman Chest mild crackles Chest tube in place Abd distented with sig asitis mild tenderness Regular rate and rhythm AA x 3 IMPRESSION Mr. Tijerina is a 66 yo m with a PMH of PKD, Polycystic liver disease, portal HTN , HTN, HLD, umbilical hernia repair, colon ademona, GERD who presented to the ED with NVD with progressively worsened abdominal distention from ascitic fluid. ISsues Peritonitis with asitics hepatic hydrothorax PCKD with renal and liver dysfunction CKD with acute renal failure s/p tunneled cath and first dialysis yesterday SVT now resolved Electrolyte imbalance Anemia Cachexia REC Cont chest tube per cts REnal to to follow cont abx per ID cont to encourage pt to eat will follow PT is critically ill, keep in icu tts 36 mins
--- NOTE | 2017-03-27 12:11 | PN- Infect Dx ---
Subjective Subjective: No fever; HD previous day; next HD on tuesday. Fatigued; c/o nausea; denies abd pain. Review of Systems Comments: 12 points reviewed as noted, otherwise negative. Objective Last 24 Hrs of Vital Signs/I&O Vital Signs Date Time Temp Pulse Resp B/P B/P Pulse O2 O2 Flow FiO2 Mean Ox Delivery Rate 03/27 0953 87 103/68 03/27 0800 98 Nasal 1.0L Cannula 03/27 0800 98.0 90 14 108/60 98 Nasal 1.0L Cannula 03/27 0400 99 Nasal 1.0L Cannula 03/27 0000 96 Nasal 1.0L Cannula 03/26 2300 97.3 81 20 90/58 97 Nasal 1.0L Cannula 03/26 2118 86 20 93/62 03/26 2000 97 Nasal 1.0L Cannula 03/26 1657 108 130/70 03/26 1657 108 130/70 03/26 1600 96 Nasal 2.0L Cannula 03/26 1600 97.0 106 14 120/64 100 Nasal 4.0L Cannula Intake & Output 03/27 1600 03/27 0800 03/27 0000 Intake Total 200 200 Output Total 20 1790 Balance 180 -1590 Intake, IV 100 200 Intake, Oral 100 Number 2 Bowel Movements Output, Chest 20 40 Tube Drainage Output, 1400 Dialysate Output, Urine 0 350 Physical Exam Other Physical Findings: He appears comfortable in no acute distress Neck right IJ tunneled catheter in place Lungs bibasilar crackles; pigtail catheter in the right chest with 2380 mL output yesterday and 300 mL overnight Heart regular rhythm with no murmur Abdomen is distended, nontender with positive bowel sounds Extremities 2+ edema both lower extremities Results Last 24 Hours of Lab Results: Laboratory Tests 03/27 03/26 0314 1236 Chemistry Sodium (137 - 145 mmol/L) 141 Potassium (3.5 - 5.1 mmol/L) 4.7 Chloride (98 - 107 mmol/L) 104 Carbon Dioxide (22 - 30 mmol/L) 15 L Anion Gap (5 - 16) 23 H BUN (9 - 20 mg/dL) 79 H Creatinine (0.7 - 1.2 mg/dL) 4.3 H Estimated GFR (>60 ml/min) 14 L Glucose (65 - 99 mg/dL) 98 Calcium (8.4 - 10.2 mg/dL) 8.7 Phosphorus (2.5 - 4.5 mg/dL) 6.3 H Magnesium (1.6 - 2.3 mg/dL) 2.1 Iron (49 - 181 ug/dL) 20 L TIBC (261 - 462 ug/dL) 166 L Ferritin (17.9 - 464 ng/mL) 131.0 Total Bilirubin (0.2 - 1.3 mg/dL) 1.4 H AST (17 - 59 U/L) 16 L ALT (21 - 72 U/L) 35 Albumin (3.5 - 5.0 g/dL) 3.8 Hematology CBC w Diff NO MAN DIFF REQ WBC (4.8 - 10.8 /CUMM) 9.4 RBC (4.70 - 6.10 /CUMM) 3.73 L Hgb (14.0 - 18.0 G/DL) 9.1 L Hct (42 - 52 %) 29.0 L MCV (80.0 - 94.0 FL) 77.6 L MCH (27.0 - 31.0 PG) 24.3 L RDW (11.5 - 14.5 %) 20.8 H Plt Count (130 - 400 /CUMM) 195 MPV (7.4 - 10.4 FL) 9.9 Gran % (42.2 - 75.2 %) 77.5 H Lymphocytes % (20.5 - 51.1 %) 12.1 L Monocytes % (1.7 - 9.3 %) 10.0 H Eosinophils % (0 - 5 %) 0.4 Basophils % (0.0 - 2.0 %) 0 Absolute Granulocytes (1.4 - 6.5 /CUMM) 7.3 H Absolute Lymphocytes (1.2 - 3.4 /CUMM) 1.1 L Absolute Monocytes (0.10 - 0.60 /CUMM) 0.9 H Absolute Eosinophils (0.0 - 0.7 /CUMM) 0 Absolute Basophils (0.0 - 0.2 /CUMM) 0 PUBS MCHC (33.0 - 37.0 G/DL) 31.3 L Last 24 Hours of [place] Results: COMMENT: > 100ML YELLOW ASCITES FLUID IN STERILE CUP, Procedure Result > GRAM STAIN Final 03/22/17-942 WHITE BLOOD CELLS MODERATE OTHER NO ORGANISMS SEEN > BODY FLUID CULTURE Final 03/24/17-0947 Scant growth of : 1.PSEUDOMONAS AERUGINOSA 2.ESCHERICHIA COLI Called to/Readback by IRVING by [facility] 03/23/17 1124 P. aerugin E.coli RX AB RX AB ------ -- ------ -- AMPICILLIN R CEFAZOLIN S AMOX/CLAV AUGM S AMP/SULB-UNASYN I CEFTAZIDIME S CIPROFLOXACIN S S GENTAMICIN S S MEROPENEM S TRIMETH/SULFA R 1. PSEUDOMONAS AERUGINOSA RX AB ------ -- CEFTAZIDIME S CIPROFLOXACIN S GENTAMICIN S MEROPENEM S 2. ESCHERICHIA COLI RX AB ------ -- AMPICILLIN R CEFAZOLIN S AMOXICILLIN/CLAVULINIC ACID S AMPICILLIN/SULBACTAM I CIPROFLOXACIN S GENTAMICIN S TRIMETHOPRIM/SULFAMETHOXAZOLE R Recent Imaging Studies: ULTRASOUND-GUIDED VASCULAR ACCESS: Ultrasound was used to identify the right internal jugular vein. The right internal jugular vein was confirmed to be patent. Real time imaging confirmed needle access into the right internal jugular vein. An image was saved for permanent recording in PACS. IMPRESSION: Successful placement of 19 cm tip to cuff tunneled hemodialysis catheter using fluoroscopic and ultrasound guidance. DICTATED BY: Kaleb Johnson MD DATE/TIME DICTATED:03/25/171706 MOTEL CLERK:GAVIOTA DATE/TIME TRANSCRIBED:03/25/171706 Assessment/Plan Impression: 66-year-old man with a history of polycystic kidney and liver disease, hypertension and chronic kidney disease admitted 03/21/17. Stable, with temperatures and white blood cell count remaining normal, on Ceftazidime for a gram-negative (Escherichia coli and Pseudomonas) peritonitis secondary to a Pleurex catheter, status post its removal, in the OR, 4 days ago from the peritoneal cavity, where it had migrated, resulting in a large right pleural effusion secondary to flow of ascitic fluid through the diaphragm, with placement of a pigtail catheter, which continues to drain a significant amount of fluid. His renal function continues to deteriorate, possibly secondary to sepsis superimposed on his underlying polycystic kidney (and liver) disease, and underwent HD 03/26/17. . Suggestion: 1. Further management of his chest tube and the peritoneal -pleural fistula per Thoracic surgery 2. Cont Ceftazidime to 1 g IV every 24 hours; give after HD on dialysis days. 3. Symptomativ tx nausea. 4. Monitor CBC, BMP, LFT's.
--- NOTE | 2017-03-27 14:04 | PN- Gastroenterology ---
Assessment/Plan Assessment/Recommendations: Mr. Tijerina is a 66 yo m with a very complicated PMH of PKD, Polycystic liver disease, portal HTN, HTN, HLD, umbilical hernia repair, colon ademona, GERD who presented to the ED with NVD with progressively worsened abdominal distention from ascitic fluid. Peritonitis secondary to a Pleurx catheter, status post its removal, in the OR, 3 days ago from the peritoneal cavity, on Ceftazidime for a gram-negative ( Escherichia coli and pseudomonas). Large right pleural effusion secondary to flow of ascitic fluid through the diaphragm, with placement of a pigtail catheter, which continues to drain a significant amount of fluid. His renal function continues to deteriorate, possibly due to sepsis. On HD. Physical Exam Other Physical Findings: Comfortable in no acute distress e Lungs bibasilar crackles; pigtail catheter in the right chest with 2380 mL output yesterday and 300 mL overnight Heart regular rhythm with no murmur Abdomen is distended, nontender with positive bowel sounds Extremities 2+ edema both lower extremities Tolerated HD. To continue broad spectrum anitibotics. No specific liver recommendations. Subjective Subjective: a Objective Vital Signs and I&Os Vital Signs Date Time Temp Pulse Resp B/P B/P Pulse O2 O2 Flow FiO2 Mean Ox Delivery Rate 03/27 1200 98 Nasal 1.0L Cannula 03/27 0953 87 103/68 03/27 0800 98 Nasal 1.0L Cannula 03/27 0800 98.0 90 14 108/60 98 Nasal 1.0L Cannula 03/27 0400 99 Nasal 1.0L Cannula 03/27 0000 96 Nasal 1.0L Cannula 03/26 2300 97.3 81 20 90/58 97 Nasal 1.0L Cannula 03/26 2118 86 20 93/62 03/26 2000 97 Nasal 1.0L Cannula 03/26 1657 108 130/70 03/26 1657 108 130/70 03/26 1600 96 Nasal 2.0L Cannula 03/26 1600 97.0 106 14 120/64 100 Nasal 4.0L Cannula Intake & Output 03/27 1600 03/27 0400 03/26 1600 03/26 0400 03/25 1600 03/25 0400 Intake Total 200 200 219 597 2784 140 Output Total 20 1790 432 624 7888 125 Balance 180 -1590 -210 110 -1145 15 Intake, IV 100 200 385 172 3775 140 Intake, Oral 100 200 100 300 Number 2 1 1 Bowel Movements Output, Chest 20 40 812 80 6311 Tube Drainage Output, 1400 Dialysate Output, Urine 0 350 150 50 200 125 Patient 145 lb 144 lb Weight Weight Bed scale Chair scale Measurement Method Results Pertinent Lab Results: a Laboratory Tests 03/27 03/26 0314 1236 Chemistry Sodium (137 - 145 mmol/L) 141 Potassium (3.5 - 5.1 mmol/L) 4.7 Chloride (98 - 107 mmol/L) 104 Carbon Dioxide (22 - 30 mmol/L) 15 L Anion Gap (5 - 16) 23 H BUN (9 - 20 mg/dL) 79 H Creatinine (0.7 - 1.2 mg/dL) 4.3 H Estimated GFR (>60 ml/min) 14 L Glucose (65 - 99 mg/dL) 98 Calcium (8.4 - 10.2 mg/dL) 8.7 Phosphorus (2.5 - 4.5 mg/dL) 6.3 H Magnesium (1.6 - 2.3 mg/dL) 2.1 Iron (49 - 181 ug/dL) 20 L TIBC (261 - 462 ug/dL) 166 L Ferritin (17.9 - 464 ng/mL) 131.0 Total Bilirubin (0.2 - 1.3 mg/dL) 1.4 H AST (17 - 59 U/L) 16 L ALT (21 - 72 U/L) 35 Albumin (3.5 - 5.0 g/dL) 3.8 Hematology CBC w Diff NO MAN DIFF REQ WBC (4.8 - 10.8 /CUMM) 9.4 RBC (4.70 - 6.10 /CUMM) 3.73 L Hgb (14.0 - 18.0 G/DL) 9.1 L Hct (42 - 52 %) 29.0 L MCV (80.0 - 94.0 FL) 77.6 L MCH (27.0 - 31.0 PG) 24.3 L RDW (11.5 - 14.5 %) 20.8 H Plt Count (130 - 400 /CUMM) 195 MPV (7.4 - 10.4 FL) 9.9 Gran % (42.2 - 75.2 %) 77.5 H Lymphocytes % (20.5 - 51.1 %) 12.1 L Monocytes % (1.7 - 9.3 %) 10.0 H Eosinophils % (0 - 5 %) 0.4 Basophils % (0.0 - 2.0 %) 0 Absolute Granulocytes (1.4 - 6.5 /CUMM) 7.3 H Absolute Lymphocytes (1.2 - 3.4 /CUMM) 1.1 L Absolute Monocytes (0.10 - 0.60 /CUMM) 0.9 H Absolute Eosinophils (0.0 - 0.7 /CUMM) 0 Absolute Basophils (0.0 - 0.2 /CUMM) 0 PUBS MCHC (33.0 - 37.0 G/DL) 31.3 L 03/26 03/25 0400 0400 Chemistry Sodium (137 - 145 mmol/L) 142 138 Potassium (3.5 - 5.1 mmol/L) 5.1 4.6 Chloride (98 - 107 mmol/L) 107 105 Carbon Dioxide (22 - 30 mmol/L) 11 L 13 L Anion Gap (5 - 16) 24 H 20 H BUN (9 - 20 mg/dL) 105 *H 102 *H Creatinine (0.7 - 1.2 mg/dL) 5.6 *H 5.3 *H Estimated GFR (>60 ml/min) 10 L 11 L Glucose (65 - 99 mg/dL) 85 87 Calcium (8.4 - 10.2 mg/dL) 8.5 7.9 L Phosphorus (2.5 - 4.5 mg/dL) 8.3 H 7.4 H Magnesium (1.6 - 2.3 mg/dL) 2.2 2.2 Total Bilirubin (0.2 - 1.3 mg/dL) 0.9 0.6 AST (17 - 59 U/L) 19 21 ALT (21 - 72 U/L) 32 31 Albumin (3.5 - 5.0 g/dL) 3.5 2.9 L Hematology CBC w Diff MAN DIFF ORDERED MAN DIFF ORDERED WBC (4.8 - 10.8 /CUMM) 7.2 6.8 RBC (4.70 - 6.10 /CUMM) 3.90 L 3.69 L Hgb (14.0 - 18.0 G/DL) 9.7 L 9.1 L Hct (42 - 52 %) 30.6 L 29.2 L MCV (80.0 - 94.0 FL) 78.4 L 79.2 L MCH (27.0 - 31.0 PG) 24.8 L 24.8 L RDW (11.5 - 14.5 %) 21.2 H 20.8 H Plt Count (130 - 400 /CUMM) 177 188 MPV (7.4 - 10.4 FL) 9.6 9.9 Segmented Neutrophils (42.2 - 75.2 %) 89 H 79 H Band Neutrophils (0.0 - 5.0 %) 1 Lymphocytes (20.5 - 51.1 %) 5 L 10 L Monocytes (1.7 - 9.3 %) 5 9 Metamyelocytes (0.0 - 1.0 %) 2 H Nucleated RBCs (0.0 - 0.0 /100WBC) 1 H 1 H Platelet Estimate (ADEQUATE) ADEQUATE ADEQUATE Polychromasia 1+ Hypochromic-Microcytic 1+ 1+ Poikilocytosis 1+ Anisocytosis 1+ Microcytic Cells 1+ Target Cells FEW Stomatocytes FEW [place] Cells 2+ 1+ PUBS MCHC (33.0 - 37.0 G/DL) 31.6 L 31.2 L 03/24 03/24 1732 1723 Chemistry Sodium (137 - 145 mmol/L) 139 Cancelled Potassium (3.5 - 5.1 mmol/L) 5.2 H Cancelled Chloride (98 - 107 mmol/L) 104 Cancelled Carbon Dioxide (22 - 30 mmol/L) 13 L Cancelled Anion Gap (5 - 16) 22 H Cancelled BUN (9 - 20 mg/dL) 105 *H Cancelled Creatinine (0.7 - 1.2 mg/dL) 4.9 H Cancelled Estimated GFR (>60 ml/min) 12 L BUN/Creatinine Ratio (7 - 25 %) 21.4 Cancelled Phosphorus (2.5 - 4.5 mg/dL) 7.7 H Magnesium (1.6 - 2.3 mg/dL) 2.2 Troponin I (<0.11 ng/ml) 0.05
--- NOTE | 2017-03-27 14:48 | PN- Cardiology ---
Subjective Subjective: Doing about the same today. No further significant arrhythmias noted over the last 24 hours. Objective Vital Signs and I&Os Vital Signs Date Time Temp Pulse Resp B/P B/P Pulse O2 O2 Flow FiO2 Mean Ox Delivery Rate 03/27 1200 98 Nasal 1.0L Cannula 03/27 0953 87 103/68 03/27 0800 98 Nasal 1.0L Cannula 03/27 0800 98.0 90 14 108/60 98 Nasal 1.0L Cannula 03/27 0400 99 Nasal 1.0L Cannula 03/27 0000 96 Nasal 1.0L Cannula 03/26 2300 97.3 81 20 90/58 97 Nasal 1.0L Cannula 03/26 2118 86 20 93/62 03/26 2000 97 Nasal 1.0L Cannula 03/26 1657 108 130/70 03/26 1657 108 130/70 03/26 1600 96 Nasal 2.0L Cannula 03/26 1600 97.0 106 14 120/64 100 Nasal 4.0L Cannula Intake & Output 03/27 1600 03/27 0800 03/27 0000 03/26 1600 03/26 0800 03/26 0000 Intake Total 200 200 50 250 220 Output Total 20 1790 90 420 110 Balance 180 -1590 -40 -170 110 Intake, IV 100 200 100 120 Intake, Oral 100 50 150 100 Number 2 1 Bowel Movements Output, Chest 20 40 60 300 60 Tube Drainage Output, 1400 Dialysate Output, Urine 0 350 30 120 50 Patient 145 lb 145 lb Weight Weight Bed scale Bed scale Measurement Method Physical Exam: General Appearance: Sleepy but arousable, Alert, Oriented X3, Cooperative, No Acute Distress, ill looking Skin Temp/Moisture Exam: Warm/Dry HEENT: Atraumatic, Mucous Membr. moist/pink Cardiovascular: Regular Rate, Normal S1, Normal S2, 1/6 systolic murmur Lungs: Clear to Auscultation and percussion bilaterally Abdomen: abdominal distention, mild tenderness no change compared to yesterday Neurological: grossly normal/nonfocal Extremities: trace - +1 edema bilateral leg Current Medications: Current Medications Sig/Lola Start time Last Medication Dose Route Stop Time Status Admin Acetaminophen 325 MG .STK-MED ONE 03/26 1704 DC PO 03/26 170 Acetaminophen 325 MG Q4P PRN 03/21 2114 AC 03/26 PO 170 Albumin Human 25 GM Q8 03/24 2199 AC 03/27 IV 1421 Ceftazidime 1,000 MG Q24H 03/27 0800 AC 03/27 IV 0811 Hydrocodone Bitart/ 1 TAB Q6P PRN 03/21 2100 AC 03/25 Acetaminophen PO 0035 Metoclopramide HCl 10 MG .STK-MED ONE 03/27 0620 DC IM 03/27 0621 Metoclopramide HCl 10 MG .STK-MED ONE 03/27 0012 DC IM 03/27 0013 Metoclopramide HCl 10 MG .STK-MED ONE 03/26 1752 DC IM 03/26 1753 Metoclopramide HCl 10 MG Q6P PRN 03/21 2315 DC 03/27 IV 0627 Metoprolol Tartrate 6.25 MG BID 03/25 2199 AC 03/26 PO 2118 Morphine Sulfate 2 MG Q4P PRN 03/21 2100 AC 03/25 IV 1800 Multivitamins 1 TAB 1700 03/25 1700 AC 03/26 PO 1653 Omeprazole 40 MG DAILY AC 03/25 1648 AC 03/27 PO 0708 Ondansetron HCl 4 MG ONCE ONE 03/27 1345 DC 03/27 IV 03/27 1346 1421 Sevelamer Carbonate 1,600 MG WITH MEALS 03/24 1700 AC 03/27 PO 0811 Verapamil HCl 180 MG DAILY 03/25 0745 AC 03/27 PO 0953 Results Last 48 Hrs of Labs/Mics: Laboratory Tests 03/27/17 0314: Anion Gap 23 H, Estimated GFR 14 L, Glucose 98, Calcium 8.7, Phosphorus 6.3 H , Magnesium 2.1, Total Bilirubin 1.4 H, AST 16 L, ALT 35, Albumin 3.8, CBC w Diff NO MAN DIFF REQ, RBC 3.73 L, MCV 77.6 L, MCH 24.3 L, RDW 20.8 H, MPV 9.9, Gran % 77.5 H, Lymphocytes % 12.1 L, Monocytes % 10.0 H, Eosinophils % 0.4, Basophils % 0, Absolute Granulocytes 7.3 H, Absolute Lymphocytes 1.1 L, Absolute Monocytes 0.9 H, Absolute Eosinophils 0, Absolute Basophils 0, PUBS MCHC 31.3 L 03/26/17 1236: Iron 20 L, TIBC 166 L, Ferritin 131.0 03/26/17 0400: Anion Gap 24 H, Estimated GFR 10 L, Glucose 85, Calcium 8.5, Phosphorus 8.3 H , Magnesium 2.2, Total Bilirubin 0.9, AST 19, ALT 32, Albumin 3.5, CBC w Diff MAN DIFF ORDERED, RBC 3.90 L, MCV 78.4 L, MCH 24.8 L, RDW 21.2 H, MPV 9.6, Segmented Neutrophils 89 H, Band Neutrophils 1, Lymphocytes 5 L, Monocytes 5, Nucleated RBCs 1 H, Platelet Estimate ADEQUATE, Hypochromic-Microcytic 1+, [place] Cells 2+, PUBS MCHC 31.6 L Assessment/Plan Assessment/Plan Assessment: 1. Nonsustained superventricular tachycardia-stable with no significant arrhythmias over the last 24 hours 2. Ascites with SBP vs Catheter-associated Peritonitis 3. Acute on chronic renal insufficiency with polycystic kidneys 4. Polycystic liver disease 5. Hyperkalemia 6. Microcytic anemia Recreations: -Keep the patient on child monitor -I suspect that the nonsustained SVT is likely related to underlying metabolic abnormalities. Continue to monitor potassium, magnesium, etc. -If tolerated by blood pressure, consider increasing metoprolol to 12.5 mg twice a day tomorrow. -For any episodes of sustained SVT, administer adenosine 6 mg IV; not IV Lopressor since it seems ineffective in resolving the patient's rhythm disorder. -Further plans after the above. Continue telemetry? Yes
[2017-03-27 16:00] VITALS: BP 108/60
[2017-03-27 23:00] VITALS: BP 90/60
[2017-03-28 05:37] LABS: HEMATOCRIT 27.5 % (42-52); MEAN CORPUSCULAR HGB 24.7 PG (27.0-31.0); MEAN CORPUSCULAR VOLUME 77.2 FL (80.0-94.0); MEAN PLATELET VOLUME 10.3 FL (7.4-10.4); PLATELET COUNT 182 /CUMM (130-400); RBC DISTRIBUTION WIDTH 19.9 % (11.5-14.5); RED BLOOD CELL CT 3.56 /CUMM (4.70-6.10); WHITE BLOOD CELL COUNT 11.3 /CUMM (4.8-10.8)
--- NOTE | 2017-03-28 07:06 | PN- Gastroenterology ---
See Addendum Assessment/Plan Assessment/Recommendations: (*Covering GI consult per Dr. Springer of 03/22/17 reviewed, along with extensive past records). 66 y/o male, HTN, non-DM, HLD, anxiety, resection BC Ca (face), B/L IH repair, umbilical hernia repair, history of renal stones (? type), remote history of colon adenoma- removed 07/19/01, chronic GERD- dependent on Omeprazole 40 mg daily x years, & PCKD. There is no family history of GI malignancy, IBD, or inherited liver disease. Positive family history of PCKD (all 3 children- 1 son & 2 dtrs). History of colon adenoma & chronic microcytic anemia. He is followed by Dr. Hearn fo renal, Dr. Lehman for primary care, Dr. Hearn for nephrology, Dr. Moreland for pulmonary, Dr. Carson for cardiothoracic surgery, & Dr. Link for cardiology. *Additionally, he saw the [facility] for evaluation of his PCKD, regarding his kidneys & potentially his liver. The transplant notes did not make mention of his liver, and he was declined for a renal transplant, for unknown reasons. His Cr had worsened, peaking at 3.1 earlier in 2017, stabilizing in the upper 2's. The patient was recently found to have a right pleural effusion in 06/2016, which was tapped, revealing a benign transudate. He reportedly had a normal echocardiogram at Dr. Link in 06/2016. 07/12/16: CT chest without contrast- moderate to large right pleural effusion with left shift of the mediastinum, no infiltrate, no suspicious pulmonary nodules. 07/14/16: Right PleurX catheter placed, which migrated into the abdominal cavity. A new PleurX catheter was placed in the right lung, after the first one had migrated, but both remain. Apparently, the abdominal catheter is capped. The previously had 1L fluid drained from the right lung M, W, F with IV SPA infusion, as occasionally he dropped his blood pressure with this. The right pleural catheter was pulled, and he was getting 1 L of ascites removed from his indwelling abdominal catheter each week. 10/01/16: albumin 4.2, globulin 2.6, TBil 0.5, alk phos 146, AST 15, ALT 19 10/21/16: PT 13.8, INR 1.32 10/28/16: WBC 8.1, H/H 10.6/33.1, MCV 78.9, RDW 19.5, PLT 183, BUN/Cr 56/2.7, GFR 24, Na 144, K 5.0, HCO3 20, AG 16 11/05/16: Ascitic tap- elevated SAAG 1.2 (serum albumin 3.5, BF albumin 2.3), but no BF protein sent, nor cell count, gram stain, culture, or cytology. *Please note, the patient's alk phos has fluctuated back to 2004. 10/05/10: +GGT 319. 02/17/05: Genetic testing HHC (H63D/C282Y)- negative. 02/20/05: MONICA- neg 1:40, anti-LKM Ab- neg, anti-smooth muscle Ab- neg, AMA < 0.1 ; Hep A Ab, Hep Bs Ag, Hep B core Ab, Hep Bs Ab & Hep C Ab- all neg; Fe 58, TIBC 401, Fe sat 14.5%, ferritin 119.3. The patient denied any pruritus, jaundice, dark urine, light stool, confusion, or peripheral edema. His abdominal girth was stable. He denied any blood transfusions, needle sticks, tattoos, risk factors for HIV, or IVDA. the patient 's anemia was somewhat chronic. He denied any history of beta thalassemia. He denied any aspirin or NSAID use. He denied any chest pain or shortness of breath. He admitted to mild dyspnea on exertion, related to his right pleural effusion. He denied any hemoptysis, fevers, or chills. He had chronic GERD, stable yet dependent on Omeprazole 40 mg daily. He denied any odynophagia, dysphagia, early satiety, hematemesis, or melena. He noted mild bloating & discomfort, related to the PCKD and ascites, but no significant abdominal pain. He had some mild weight loss since having his right pleural effusion drained repeatedly. 08/01/91: EGD (purged)- mod to severe GERD, without Daley's. 07/19/01: Colonoscopy (purged)- benign TA. 02/22/06: Colonoscopy to cecum- tortuous redundant lumen due to PCKD, normal mucosa to cecum, w/o recurrent polyps (*not compliant with suggested colonoscopy advised for 02/2011). 11/21/07: EGD to D2- mod GERD w/o Daley's, Z line at 39 cm, sentinel fold gastric cardia- benign gastritis with IM, HP-neg, suggestion of extrinsic compression of stomach, w/o GOO. The patient's recurrent right pleural effusion probably was related to his ascites, and is a hepatic hydrothorax, with ascitic fluid traversing the right hemidiaphragm. 02/27/15: CT AP without contrast- moderate ascites, although I did not see any more recent imaging studies of the abdomen. Although it is unusual, he may have progression of PCKD, with overwhelming hepatic cysts replacing his hepatic parenchyma, causing cirrhosis. Other entities to consider would be chronic viral hepatitis, rule out autoimmune hepatitis, rule out PBC ( fluctuating alk phos x years, with +GGT), rule out overload state. Having stated that, he did not have reversal of albumin:globulin ratio (albeit, on IV SPA periodically), nor thrombocytopenia. Additionally, his INR was only borderline elevated. He reportedly had a stable echocardiogram in 06/2016, without any elevated right heart pressures. He remained with 2 PleurX catheters- 1 in the right pleural space, with the initial one now in his abdominal cavity & capped. His 11/05/16: ascitic fluid showed elevated SAAG 1.2, but there was no concurrent BF protein sent (would expect BF protein < 2.0 in conjunction with elevated SAAG > 1.1, if the ascites were from portal HTN). I previously advised that the patient contact Dr. Hearn, to set up a repeat ascitic fluid tap via the migrated right PleurX catheter, to check a cell count, Gram stain, culture, cytology, BF protein, BF albumin & simultaneous serum albumin, to repeat a SAAG (expect high SAAG, low BF protein, if ascites is from portal HTN). A FibroScan would be difficult to interpret with the large amounts of hepatic cysts. I will defer repeating a noncontrast CT of the abdomen for now , as it will be a limited study, in view of his GFR. The patient saw the [facility] for initial evaluation 01/05/17, regarding his PCKD. I think it would be helpful to know whether the patient truly has cirrhosis prior to this. Therefore, my office wset up a transjugular liver biopsy with HV wedge pressure at [facility], prior to his transplant evaluation. As the patient remotely had colon adenomas removed , & last had a clean (albeit tortuous) colonoscopy 02/22/06, I advised a repeat colonoscopy with a pediatric colonoscope after TriLyte (low GFR). He was overdue for a follow-up colonoscopy, advised for 02/2011. The [facility] will want his colonic mucosa cleared of any lesions. The risks and benefits of colonoscopy were discussed with the patient, and he wished to proceed. He realized that he is at higher than average risk for this, in view of his PCKD causing extrinsic compression. I will try to coordinate an abdominal tap prior to the colonoscopy, to help decrease his intra-abdominal pressures. A variety of antireflux measures were discussed with the patient. His Omeprazole 40 mg daily will be continued for now. I advised a follow-up GI visit here in 02/2017, about a month after he is evaluated by the [facility]. At that point, I will consider a repeat EGD in view of his chronic GERD, as well as to exclude potential varices, if the above workup is suggestive of cirrhosis. Additionally, I would consider a small bowel biopsy and perhaps a celiac panel then, if there was evidence of iron deficiency on the blood work. Mr. Tijerina preferred not to have his EGD done simultaneously with his colonoscopy, as he felt it would be too much to go through at one time, keeping in mind his advanced PCKD. Further recommendations will follow, depending on clinical course. 12/01/16: *I spoke with [facility] IR, Dr. Omar Tipton. Liver bx could not be done , as extensive cystic disease. RA 1 mm Hg, HV 4 mm HG, HVWPG 17 mm Hg, suggestive of possible post-sinusoidal obstruction (not sinusoidal), possibly from extensive PCKD. 1) Please get MRI liver (cannot give contrast with low GFR)-> not done. 2) Advise liver consult at [facility] (see if they want to do MRI there) 12/13/16: *PT 12.5, INR 1.19, WBC 8.3, chronic H/H 111.1/34.8, MCV 80.8, RDW 19.2, PLT 263, MONICA- neg 1:40, glu 112, BUN/Cr 56/3.0 (chronic), GFR 21, HCO3 21, AG 11, alb 3.0, glob 3.2, TBil 0.3, alk phos 189, AST 17, ALT 17, HAVM- neg, Hep Bs Ag- neg, Hep Bs Ab- neg, + Hep C Ab, Fe 19, TIBC 232 (chronic disease), ferritin 90.7. AMA < 20, MONICA- neg 1:40, anti-LKM < 20, anti-smooth muscle Ab < 20, *nl AFP 1.5, elev A1AT 314 (not low), nl Hgb electrophoresis phenotype 12/14/16: *HCV RNA RT IU/mL < 15- not detected, HCV RNA LOGIU/mL < 1.18- not detected, HCV genotype- not detected. 12/14/16: *Colonoscopy to cecum- 1. Several sessile diminutive polyps, all completely removed via cold biopsies: (Specimen A- 5 mm proximal right colon polyp, NBI positive. Specimen B- 4 mm transverse colon polyp, NBI positive. Specimen C- 3 mm rectal polyp at 10 cm, NBI negative). 2. Moderate left-sided diverticula. 3. Moderate internal hemorrhoids, without active bleeding. 4. Extensive PCKD, with extrinsic compression and tortuous lumen. I called the pt 12/16/16 p.m. regarding the benign diminuitive sessile polyps (5 mm proximal right colon benign TA, 4 mm normal tissue in transverse colon without true polyp, 3 mm rectal polyp at 10 cm- benign hyperplastic). As the tiny polyps were benign, I advised a follow-up surveillance colonoscopy with the *pediatric colonoscope and a 1 gallon prep in 5 years (i.e.- 12/2021), keeping in mind the past personal history of colon adenoma. [*If he gets a transplant & is put on immunosuppressants, I might consider shortening the interval of follow-up colonoscopy to 3 years]. Add high-fiber diet plus FiberCon 2 tabs daily. Local care as needed, regarding internal hemorrhoids. Consideration for MRI liver at [facility], but cannot give gadolinium with low GFR. To summarize, Mr. 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 He is waiting for his indwelling abdominal catheter to be removed in the OR later on 03/23/17. He had been seen by numerous consultants, including renal and ID. He remained on broad-spectrum antibiotics, including IV Vancomycin & IV Fortaz 1g Q12h (IV Ceftriaxone D/C for better gram negative coverage). 03/22/17: Ascitic fluid- *8222 WBC (*90P/10Meso), 794 RBC. 03/22/17: Repeat ascitic fluid- *4250 WBC (*91P/1L/10Meso), 475 RBC, high SAAG, *high protein. The patient has post-obstructive portal hypertension, but uncertain if he has cirrhosis. Previous AFP- WNL. 03/22/17: ECHOCARDIOGRAM- CONCLUSIONS 1. This was a technically difficult study due to the patient's body habitus. 2. Aortic sclerosis is present with no valvular stenosis or insufficiency. 3. Mitral leaflet thickening is present with fibrosis of the chordal structures and mild systolic prolapse of the posterior leaflet with mild mitral insufficiency 4. a very small pericardial effusion is present which is hemodynamically insignificant. 5. The left ventricle chamber size and systolic function appear normal, 55-60%. There are no significant resting wall motion abnormalities. 6. The right heart structures are not well assessed. Minimal tricuspid insufficiency is present. The right ventricular systolic pressure could not be assessed by this examination. -Krysten Link M.D. 03/23/17: XRY-PORTABLE CHEST XRAY- Status post removal of Pleurx catheter, in PACU. New moderate to large right pleural effusion. Atelectasis of the right mid and lower lung as well as the left base. 03/23/17: ULTRASOUND-GUIDED RIGHT-SIDED CHEST TUBE PLACEMENT- Ultrasound-guided 10 [place] right-sided chest tube placement. 03/24/17: XRY-PORTABLE CHEST XRAY- 1. Pigtail catheter is seen projected over the right lung base, presumably within a subpulmonic small pleural effusion. 2. Mild subsegmental atelectasis in the left CP angle. 3. Low lung volumes. 03/24/17: XRY-CHEST XRAY, TWO VIEWS- Low lung volumes with bibasilar subsegmental atelectasis. No significant pleural effusion or evidence of pneumothorax. A kink is noted in the pigtail catheter at the rib margin. 03/24/17: WBC 8.0 (91S/3L/6M), H/H 9.1/28.8, MCV 78.9, RDW 19.6, PLT 163, glu 82 , BUN/Cr 98/4.9, GFR 12, Na 138, K 4.8, HCO3 15, AG 19, Mg 2.2, Ca 7.8, PO4 8.2, alb 2.7, TBil 0.5, AST 28, ALT 37, troponin .05. 03/24/17: *Hep A Ab, Hep Bs Ag, Hep C Ab, Hep Bs Ab, Hep B core Ab- all negative. *As of 03/24/17, the patient was defervescing & no longer spiking, with O2 sat 3L nc 96. Numerous consultants' notes appreciated & events reviewed. The patient 's ascitic fluid grew GNR, secondary to the Pleurx catheter, which was removed by CTS on 03/23/17. This was followed by increased fluid in the right hemithorax & hypoxia, & a pigtail catheter was then placed by IR in the right hemithorax to help treat translocated ascites between the abdomen & the chest. IV Fortaz was continued & IV Vancomycin was felt to no longer be needed, based on GNR. 03/22/17: Ascitic C&S: Pseudomonas- pansensitive & E. Coli- resitant to Ampicillin & Bactrim. *BC/UC remained negative. The patient's urine output remained poor & he was suspected to have ATN (note: high U Na+) from sepsis. *The patient's previous outpt HVWPG at [facility] showed portal HTN, with suggestion of post-sinusoidal obstruction, due to PCKD, however a transjugular liver bx could not be done then , as the hepatic parenchyma was essentially replaced by cysts. Renal is anticipating eventual dialysis within the next few days, if his renal output does not improve, with plans for Evin cath placement. He was continued on SPA 25g IVPB Q8h. (No definite data for Midodrine/Octreotide, per discussion with renal, as no definite HRS, especially with elevated Jose Elias+). There is consideration by CTS to surgically close a potential communication in the diaphragm, if conservative therapy with the pigtail catheter does not help. CTS advised abdominal decompression & semi-upright status to help decrease fluid reaccumulation if the right hemithorax. The patient later developed asx SVT @[address] vs. rapid afib, txd with Toprol. BP was stable. IV NS @ 75 cc/hr was added, bu this could exacerbate ascites. *The patient currently denied any CP, SOB, abdominal pain, nausea, vomiting, jaundice, pleuritic pain, hemoptysis, fevers, or chills, and appeared more comfortable than he was earlier. CM: currently ST 101. *On 03/24/17 at 11:30 PM, the patient had recurrent SVT to the 170s, with BP 87/ 67, resolved after IV adenosine. There were some associated palpitations. Verapamil was added. 03/25/17: WBC 6.8, H/H 9.1/29.2, MCV 79.2, RDW 20.8, PLT 188, glucose 87, BUN/Cr 102/5.3, Na 138, K 4.6, HCO3 13, AG 20, Ca 7.9, PO4 7.4, alb 2.9, TBil 0.6, AST 21, ALT 31, *As of 03/25/17, the patient was hemodynamically stable & afebrile on IV Fortaz, with O2 sat 3L 95%. BC & UC remained negative. He remained on SPA 25g IV Q8h & was awaiting Evin cath placement. His renal function was worsening with urine output approximately 150cc/8 hrs. Aside from some fatigue, he was currently asymptomatic. His chest tube put out 540cc last shift. 03/22/17: AFP 1.1. 03/26/17: Fe 20, TIBC 166 (c/w chronic disease), ferritin 131. 03/27/17: glu 98, BUN/Cr 79/4.3, GFR 14, Na 141, K 4.7, HCO3 15, AG 23, Mg 2.1, Ca 8.7, PO4 6.3, alb 3.8, TBil 1.4, AST 16, ALT 35, 03/28/17: WBC 11.3, H/H 8.8/27.5, MCV 77.2, RDW 19.9, PLT 182, glu 83, BUN/Cr 90 /5.0, GFR 12, Na 141, K 4.8, HCO3 14, AG 22, Mg 2.0, Ca 8.4, PO4 6.2, alb 3.4, glob 2.2, TBil 1.1, alk phos 132, AST 16, ALT 28. 03/25/17: ULTRASOUND AND FLUOROSCOPICALLY GUIDED RIGHT INTERNAL JUGULAR VEIN TUNNELED PERMACATHETER PLACEMENT- IMPRESSION: Successful placement of 19 cm tip to cuff tunneled hemodialysis catheter using fluoroscopic and ultrasound guidance, via right IJ. *Weekend events noted. Multiple consultants' notes & GI coverage notes appreciated. The patient had an Evin cath placed 03/25/17, and dialysis was initiated 03/26/17. He had some nonsustained SVT over the weekend, treated with adenosine, stabilizing 03/27/17. Pigtail catheter remained in place in right pleural space. Chest tube output decreased to 30 cc/past shift (approx 100 cc/ past 24 hrs), since HD. Awaiting HD again later on 03/28/17. He remained on IV Fortaz for Pseudomonas & E. Coli catheter-induced peritonitis. BC remained negative. UC negative. SPA 25g IVPB Q8h was continued. Reglan & Zofran were switched to Tigan on 03/27/17. He remained on Omeprazole 40 mg daily. *As of , BP 93/59, P 84, R 12, T 98.7, O2 sat RA 96%. CM: NSR. His only plan was nausea without vomiting, which seemed better on Tigan. He denied any CP, SOB, palpitations, fevers, chills, abdominal pain, diarrhea, GI bleeding, jaundice, or confusion. SUGGEST- *Continue broad-spectrum antibiotics with IV Fortaz (ascitic C&S- Pseudomonas & E. Coli; no need for further Vanco). Follow-up cultures. Follow-up with ID, renal, & cardiology. *Continue IV SPA 25g Q8h. *HD per renal (started 03/26/17). *Await 03/23/17: ascitic cytology for completeness. Maintain in ICU. Check I's and O's. *Agree with renal in holding Midodrine/Octreotide for now (HRS less likely, especially with elevated Jose Elias+). Keep in semi-upright position to help decrease reaccumulation of right pleural fluid. *Regarding ascites, difficult to tell how much is fluid vs. PCKD at present- obviously cannot give diuretics now & may ultimately need periodic large volume abdominal taps for abdominal decompression. *Hopefully, conservative tx with pigtail catheter placed in right pleural space will help in healing diaphragmatic communication- if not, may need more definitive CTS intervention (output decreased post HD). Follow-up electrolytes, GFR, CBC. Avoid nephrotoxins and hepatotoxins. *Assuming the patient stabilizes once peritonitis clears, re-evaluation for both renal and hepatic transplant (post-sinusoidal obstruction from PCKD), [facility]. May continue PPI if needed (hx GERD). As an aside, consideration for outpt EGD (r/o varices, possible small bowel biopsy with past history of iron deficiency). Repeat colonoscopy with pedicolon x 5 years (i.e.- 12/2021), post 1 gallon prep. [*If he gets a transplant & is put on immunosuppressants, I might consider shortening the interval of follow-up colonoscopy to 3 years]. The case was again discussed with the patient's , Xochitl, at the bedside, as per his request & previously with his children. The case was previously discussed with the medical housestaff, & previously with Dr. Beck, Dr. Granda, & Dr. Morocho. Further GI recommendations to follow, depending on clinical course. 1/2 hour of ICU care was spent on the patient. Problem List: 1. Peritonitis 2. Hydrothorax 3. Polycystic kidney disease 4. Polycystic liver disease 5. Portal hypertension 6. Acute on chronic renal failure 7. Ascites 8. Hyperkalemia Subjective Subjective: 03/22/17: AFP 1.1. 03/26/17: Fe 20, TIBC 166 (c/w chronic disease), ferritin 131. 03/27/17: glu 98, BUN/Cr 79/4.3, GFR 14, Na 141, K 4.7, HCO3 15, AG 23, Mg 2.1, Ca 8.7, PO4 6.3, alb 3.8, TBil 1.4, AST 16, ALT 35, 03/28/17: WBC 11.3, H/H 8.8/27.5, MCV 77.2, RDW 19.9, PLT 182, glu 83, BUN/Cr 90 /5.0, GFR 12, Na 141, K 4.8, HCO3 14, AG 22, Mg 2.0, Ca 8.4, PO4 6.2, alb 3.4, glob 2.2, TBil 1.1, alk phos 132, AST 16, ALT 28. 03/25/17: ULTRASOUND AND FLUOROSCOPICALLY GUIDED RIGHT INTERNAL JUGULAR VEIN TUNNELED PERMACATHETER PLACEMENT- IMPRESSION: Successful placement of 19 cm tip to cuff tunneled hemodialysis catheter using fluoroscopic and ultrasound guidance, via right IJ. *Weekend events noted. Multiple consultants' notes & GI coverage notes appreciated. The patient had an Evin cath placed 03/25/17, and dialysis was initiated 03/26/17. He had some nonsustained SVT over the weekend, treated with adenosine, stabilizing 03/27/17. Pigtail catheter remained in place in right pleural space. Chest tube output decreased to 30 cc/past shift (approx 100 cc/ past 24 hrs), since HD. Awaiting HD again later on 03/28/17. He remained on IV Fortaz for Pseudomonas & E. Coli catheter-induced peritonitis. BC remained negative. UC negative. SPA 25g IVPB Q8h was continued. Reglan & Zofran were switched to Tigan on 03/27/17. He remained on Omeprazole 40 mg daily. *As of , BP 93/59, P 84, R 12, T 98.7, O2 sat RA 96%. CM: NSR. His only plan was nausea without vomiting, which seemed better on Tigan. He denied any CP, SOB, palpitations, fevers, chills, abdominal pain, diarrhea, GI bleeding, jaundice, or confusion. Review of Systems: Review of Systems: Full 14 point review of systems otherwise noncontributory, and as above. Constitutional: Reports: see HPI. EENTM: Reports: no symptoms. Cardiovascular: Reports: no symptoms. Respiratory: Reports: see HPI. GI: Reports: see HPI, abdominal pain- resolved; + nausea Genitourinary: Reports: no symptoms. Musculoskeletal: Reports: no symptoms. Skin: Reports: no symptoms. Neurological/Psychological: Reports: no symptoms. Hematologic/Endocrine: Reports: no symptoms. Objective Vital Signs and I&Os Vital Signs Date Time Temp Pulse Resp B/P B/P Pulse O2 O2 Flow FiO2 Mean Ox Delivery Rate 03/28 0400 96 Room Air Room Air 03/28 0000 95 Room Air Room Air 03/27 2300 98.1 80 16 90/60 95 Room Air Room Air 03/27 2205 82 12 88/62 03/27 2000 96 Room Air Room Air 03/27 1656 89 90/41 03/27 1600 96 Room Air Room Air 03/27 1600 98.6 92 16 108/60 98 Room Air Room Air 03/27 1200 98 Nasal 1.0L Cannula 03/27 0953 87 103/68 03/27 0800 98 Nasal 1.0L Cannula 03/27 0800 98.0 90 14 108/60 98 Nasal 1.0L Cannula Intake & Output 03/28 1600 03/28 0400 03/27 1600 03/27 0400 03/26 1600 03/26 0400 Intake Total 160 150 250 200 300 220 Output Total 30 70 105 1790 510 110 Balance 130 80 145 -1590 -210 110 Intake, IV 100 100 100 200 100 120 Intake, Oral 60 50 150 200 100 Number 0 3 3 1 Bowel Movements Output, Chest 10 35 40 360 60 Tube Drainage Output, 1400 Dialysate Output, Urine 30 60 70 350 150 50 Patient 145 lb Weight Weight Bed scale Measurement Method Physical Exam: Well-developed, malnourished, chronically ill appearing male, in no apparent distress. Sclera anicteric. Conjunctiva pink. Oropharynx clear. No oral thrush. No aphthous ulcers. There is no adenopathy, thyromegaly, JVD, or HJR. No peripheral stigmata of inflammatory bowel disease on exam. No spiders on the anterior chest wall. No gynecomastia. No CVA tenderness. Lungs: clear to A&P, with decreased BS 1/4 up at right base & slight decreased BS at left base. No wheezing, rales, or rhonchi. Pigtail catheter, right posterior chest wall (old site dressed). Heart exam: mildly tachycardic regular rate rhythm, S1 S2, ? mid- systolic click, without any murmur, rub or gallop. Abdominal exam: normal bowel sounds, distended belly, nontender, without guarding or rebound. Enlarged cystic liver, > 22 cm by percussion, with edge > 6 FBBRCM, crossing the midline. No mass. Difficult to tell if there is splenomegaly, due to PCKD. Questionable fluid shift with abdominal striae. (difficult to tell whether ascitic fluid vs. enlarged cysts). No pulsatile mass. No epigastric bruit. Digital rectal exam: deferred by patient (done at 12/14/16: colonoscopy). Extremities: without cyanosis or clubbing. 1+ peripheral edema LE B/L. No palpable cords. Mild DJD. No rash. No palmar erythema. No Dupuytren's contractures. Distal pulses 2+ bilaterally. DTRs 2+ bilaterally. Alert and oriented x 3. Right handed. No tremor. No asterixis. No cogwheeling or EPS signs (currently off Reglan). Motor 5/5 B/L. A detailed exam for peripheral neuropathy was deferred. Current Medications: Current Medications Sig/Lola Start time Last Medication Dose Route Stop Time Status Admin Acetaminophen 325 MG Q4P PRN 03/21 2115 AC 03/26 PO 1707 Albumin Human 25 GM Q8 03/24 2200 AC 03/28 IV 0634 Ceftazidime 1,000 MG Q24H 03/27 0800 AC 03/27 IV 0811 Hydrocodone Bitart/ 1 TAB Q6P PRN 03/21 2100 AC 03/25 Acetaminophen PO 0035 Metoclopramide HCl 10 MG Q6P PRN 03/21 2315 DC 03/27 IV 0627 Metoprolol Tartrate 6.25 MG BID 03/25 2200 AC 03/26 PO 1657 Morphine Sulfate 2 MG Q4P PRN 03/21 2100 AC 03/25 IV 1800 Multivitamins 1 TAB 1700 03/25 1700 AC 03/27 PO 1655 Omeprazole 40 MG DAILY AC 03/25 1648 AC 03/28 PO 0636 Ondansetron HCl 4 MG ONCE ONE 03/27 1345 DC 03/27 IV 03/27 1346 1421 Sevelamer Carbonate 1,600 MG WITH MEALS 03/24 1700 AC 03/27 PO 1655 Trimethobenzamide HCl 200 MG TID PRN 03/27 2014 AC 03/28 IM 0419 Verapamil HCl 180 MG DAILY 03/25 744 AC 03/27 PO 0953 Results Pertinent Lab Results: Laboratory Tests 03/28 03/28 0614 0413 Chemistry Sodium (137 - 145 mmol/L) 141 Potassium (3.5 - 5.1 mmol/L) 4.8 Chloride (98 - 107 mmol/L) 105 Carbon Dioxide (22 - 30 mmol/L) 14 L Anion Gap (5 - 16) 22 H BUN (9 - 20 mg/dL) 90 H Creatinine (0.7 - 1.2 mg/dL) 5.0 H Estimated GFR (>60 ml/min) 12 L Glucose (65 - 99 mg/dL) 83 Calcium (8.4 - 10.2 mg/dL) 8.4 Phosphorus (2.5 - 4.5 mg/dL) 6.2 H Magnesium (1.6 - 2.3 mg/dL) 2.0 Total Bilirubin (0.2 - 1.3 mg/dL) 1.1 Direct Bilirubin (< 0.4 mg/dL) 0.9 H AST (17 - 59 U/L) 16 L ALT (21 - 72 U/L) 28 Alkaline Phosphatase (< 127 U/L) 132 H Total Protein (6.3 - 8.2 g/dL) 5.6 L Albumin (3.5 - 5.0 g/dL) 3.4 L Hematology CBC w Diff MAN DIFF ORDERED WBC (4.8 - 10.8 /CUMM) 11.3 H RBC (4.70 - 6.10 /CUMM) 3.56 L Hgb (14.0 - 18.0 G/DL) 8.8 L Hct (42 - 52 %) 27.5 L MCV (80.0 - 94.0 FL) 77.2 L MCH (27.0 - 31.0 PG) 24.7 L RDW (11.5 - 14.5 %) 19.9 H Plt Count (130 - 400 /CUMM) 182 MPV (7.4 - 10.4 FL) 10.3 Segmented Neutrophils (42.2 - 75.2 %) 81 H Lymphocytes (20.5 - 51.1 %) 7 L Monocytes (1.7 - 9.3 %) 12 H Platelet Estimate (ADEQUATE) ADEQUATE Hypochromic-Microcytic 1+ Poikilocytosis 2+ Anisocytosis 1+ Microcytic Cells 1+ Ovalocytes 1+ Sullivan Cells 1+ Elliptocytes FEW PUBS MCHC (33.0 - 37.0 G/DL) 32.0 L Other Body Source Fld Total RBCs Counted (%) 100 03/27 03/26 0314 1236 Chemistry Sodium (137 - 145 mmol/L) 141 Potassium (3.5 - 5.1 mmol/L) 4.7 Chloride (98 - 107 mmol/L) 104 Carbon Dioxide (22 - 30 mmol/L) 15 L Anion Gap (5 - 16) 23 H BUN (9 - 20 mg/dL) 79 H Creatinine (0.7 - 1.2 mg/dL) 4.3 H Estimated GFR (>60 ml/min) 14 L Glucose (65 - 99 mg/dL) 98 Calcium (8.4 - 10.2 mg/dL) 8.7 Phosphorus (2.5 - 4.5 mg/dL) 6.3 H Magnesium (1.6 - 2.3 mg/dL) 2.1 Iron (49 - 181 ug/dL) 20 L TIBC (261 - 462 ug/dL) 166 L Ferritin (17.9 - 464 ng/mL) 131.0 Total Bilirubin (0.2 - 1.3 mg/dL) 1.4 H AST (17 - 59 U/L) 16 L ALT (21 - 72 U/L) 35 Albumin (3.5 - 5.0 g/dL) 3.8 Hematology CBC w Diff NO MAN DIFF REQ WBC (4.8 - 10.8 /CUMM) 9.4 RBC (4.70 - 6.10 /CUMM) 3.73 L Hgb (14.0 - 18.0 G/DL) 9.1 L Hct (42 - 52 %) 29.0 L MCV (80.0 - 94.0 FL) 77.6 L MCH (27.0 - 31.0 PG) 24.3 L RDW (11.5 - 14.5 %) 20.8 H Plt Count (130 - 400 /CUMM) 195 MPV (7.4 - 10.4 FL) 9.9 Gran % (42.2 - 75.2 %) 77.5 H Lymphocytes % (20.5 - 51.1 %) 12.1 L Monocytes % (1.7 - 9.3 %) 10.0 H Eosinophils % (0 - 5 %) 0.4 Basophils % (0.0 - 2.0 %) 0 Absolute Granulocytes (1.4 - 6.5 /CUMM) 7.3 H Absolute Lymphocytes (1.2 - 3.4 /CUMM) 1.1 L Absolute Monocytes (0.10 - 0.60 /CUMM) 0.9 H Absolute Eosinophils (0.0 - 0.7 /CUMM) 0 Absolute Basophils (0.0 - 0.2 /CUMM) 0 PUBS MCHC (33.0 - 37.0 G/DL) 31.3 L 03/26 0400 Chemistry Sodium (137 - 145 mmol/L) 142 Potassium (3.5 - 5.1 mmol/L) 5.1 Chloride (98 - 107 mmol/L) 107 Carbon Dioxide (22 - 30 mmol/L) 11 L Anion Gap (5 - 16) 24 H BUN (9 - 20 mg/dL) 105 *H Creatinine (0.7 - 1.2 mg/dL) 5.6 *H Estimated GFR (>60 ml/min) 10 L Glucose (65 - 99 mg/dL) 85 Calcium (8.4 - 10.2 mg/dL) 8.5 Phosphorus (2.5 - 4.5 mg/dL) 8.3 H Magnesium (1.6 - 2.3 mg/dL) 2.2 Total Bilirubin (0.2 - 1.3 mg/dL) 0.9 AST (17 - 59 U/L) 19 ALT (21 - 72 U/L) 32 Albumin (3.5 - 5.0 g/dL) 3.5 Hematology CBC w Diff MAN DIFF ORDERED WBC (4.8 - 10.8 /CUMM) 7.2 RBC (4.70 - 6.10 /CUMM) 3.90 L Hgb (14.0 - 18.0 G/DL) 9.7 L Hct (42 - 52 %) 30.6 L MCV (80.0 - 94.0 FL) 78.4 L MCH (27.0 - 31.0 PG) 24.8 L RDW (11.5 - 14.5 %) 21.2 H Plt Count (130 - 400 /CUMM) 177 MPV (7.4 - 10.4 FL) 9.6 Segmented Neutrophils (42.2 - 75.2 %) 89 H Band Neutrophils (0.0 - 5.0 %) 1 Lymphocytes (20.5 - 51.1 %) 5 L Monocytes (1.7 - 9.3 %) 5 Nucleated RBCs (0.0 - 0.0 /100WBC) 1 H Platelet Estimate (ADEQUATE) ADEQUATE Hypochromic-Microcytic 1+ Ahsan Cells 2+ PUBS MCHC (33.0 - 37.0 G/DL) 31.6 L Imaging/Other Studies: 03/21/17: EKG- ST @ 105, normal axis, normal intervals, NSST, PRWP 03/21/17: XRY-PORTABLE CHEST XRAY- Low lung volumes with elevated right hemidiaphragm. No acute pulmonary findings. 03/21/17: CT ABDOMEN AND PELVIS WITHOUT CONTRAST- 1. Numerous cysts effectively replacing the normal hepatic and bilateral renal parenchyma, grossly similar compared to prior. There is a new hyperdense lesion in the right renal fossa which could represent a proteinaceous or hemorrhagic cyst however an underlying mass is not excluded. 2. Interval development of large amount of abdominopelvic ascites. 3. Stable position of a drainage catheter along the right hepatic dome. 03/22/17: ECHOCARDIOGRAM- CONCLUSIONS 1. This was a technically difficult study due to the patient's body habitus. 2. Aortic sclerosis is present with no valvular stenosis or insufficiency. 3. Mitral leaflet thickening is present with fibrosis of the chordal structures and mild systolic prolapse of the posterior leaflet with mild mitral insufficiency 4. a very small pericardial effusion is present which is hemodynamically insignificant. 5. The left ventricle chamber size and systolic function appear normal, 55-60%. There are no significant resting wall motion abnormalities. 6. The right heart structures are not well assessed. Minimal tricuspid insufficiency is present. The right ventricular systolic pressure could not be assessed by this examination. -Krysten Link M.D. 03/23/17: XRY-PORTABLE CHEST XRAY- Status post removal of Pleurx catheter, in PACU. New moderate to large right pleural effusion. Atelectasis of the right mid and lower lung as well as the left base. 03/23/17: ULTRASOUND-GUIDED RIGHT-SIDED CHEST TUBE PLACEMENT- Ultrasound-guided 10 [place] right-sided chest tube placement. 03/24/17: XRY-PORTABLE CHEST XRAY- 1. Pigtail catheter is seen projected over the right lung base, presumably within a subpulmonic small pleural effusion. 2. Mild subsegmental atelectasis in the left CP angle. 3. Low lung volumes. 03/24/17: XRY-CHEST XRAY, TWO VIEWS- Low lung volumes with bibasilar subsegmental atelectasis. No significant pleural effusion or evidence of pneumothorax. A kink is noted in the pigtail catheter at the rib margin. 03/25/17: ULTRASOUND AND FLUOROSCOPICALLY GUIDED RIGHT INTERNAL JUGULAR VEIN TUNNELED PERMACATHETER PLACEMENT-
--- NOTE | 2017-03-28 07:38 | PN- Resident CRCU ---
Lucía Enciso 03/28/17 0737: Subjective HPI/CRCU Issues: Catheter-associated Peritonitis SHELBY on CKD on HD Nonsustained SVT - resolved Hyperkalemia - resolved Acute hypoxic respiratory failure - resolved 24 Hour Events: Patient has no complaints or acute events overnight. His pigtail drained 30 cc this a.m. He denies palpitations, CP, SOB. No other SVT episodes noted. He will receive dialysis this a.m. via tunneled cath Objective Vital Signs & I&O Last 8 Hrs of Vitals and I&O: Intake & Output 03/28 1600 Intake Total Output Total Balance Patient 134 lb Weight Weight Chair scale Measurement Method Exam General Appearance: lethargic, mild distress, thin Head: atraumatic, normal appearance Respiratory: normal breath sounds Cardiovascular: systolic murmur Gastrointestinal: distention Extremities: no edema Skin: pallor Current Medications: Current Medications Sig/Lola Start time Last Medication Dose Route Stop Time Status Admin Acetaminophen 325 MG Q4P PRN 03/21 2115 AC 03/26 PO 1707 Albumin Human 25 GM Q8 03/24 2200 AC 03/28 IV 0634 Ceftazidime 1,000 MG Q24H 03/27 0800 AC 03/27 IV 0811 Hydrocodone Bitart/ 1 TAB Q6P PRN 03/21 2100 AC 03/25 Acetaminophen PO 0035 Metoclopramide HCl 10 MG Q6P PRN 03/21 2315 DC 03/27 IV 0627 Metoprolol Tartrate 6.25 MG BID 03/25 2200 AC 03/26 PO 1657 Morphine Sulfate 2 MG Q4P PRN 03/21 2100 AC 03/25 IV 1800 Multivitamins 1 TAB 1700 03/25 1700 AC 03/27 PO 1655 Omeprazole 40 MG DAILY AC 03/25 1648 AC 03/28 PO 0636 Ondansetron HCl 4 MG ONCE PRN 03/28 0830 AC 03/28 IV 0833 Ondansetron HCl 4 MG ONCE ONE 03/27 1345 DC 03/27 IV 03/27 1346 1421 Sevelamer Carbonate 1,600 MG WITH MEALS 03/24 1700 AC 03/28 PO 0833 Trimethobenzamide HCl 200 MG TID PRN 03/27 2015 AC 03/28 IM 0419 Verapamil HCl 180 MG DAILY 03/25 0745 AC 03/27 PO 0953 Impression/Plan Impression/Problem List Impression: Mr. Tijerina is a 66 yo m with a PMH of PKD, Polycystic liver disease, portal HTN , HTN, HLD, umbilical hernia repair, colon ademona, GERD who presented to the ED with NVD with progressively worsened abdominal distention from ascitic fluid. Nonsustained SVT - resolved Patient experienced 2 episodes of SVT with HR up to 180s. He was asymptomatic during both events. During the first event he was administered IV Metoprolol 5 mg. The second event spontaneously resolved and did not require medical management * Continue Metoprolol 6.25 mg BID due to low BP, hold increase for now * Cardiology recommendations appreciated * Consider Adenosine for any acute events Acute hypoxic respiratory failure s/p Pleurx Cath removal Patient has a patent connection between abdominal cavity and pleural space 2/2 migrated indwelling catheter, leading to transfer of ascitic fluid to the pleural space. A pig tail was placed. As per Dr. Carson options are to watch and wait to see if spontaneously resolves vs surgical intervention. PA/Lateral CXR for pleural effusio demonstrated no significant pleural effusion or evidence of pneumothorax. ECHO demonstrated Aortic sclerosis is present with no valvular stenosis or insufficiency, a very small pericardial effusion, EF 55-60% * Continue pigtail catheter drainage connected to water seal * Surgery recommendations appreciated * TRC/nebs, oxygen supplementation PRN Catheter-associated Peritonitis Patient had an indwelling pleural catheter placed in July 2016 for pleural effusion that migrated into the abdominal cavity. Considering that the patient's catheter was never removed it can be a possible source of infection. He had another catheter placed in the R lung that was eventually removed. CT abdomen/ pelvis on admission demonstrated the resolution of his R-side pleural effusion. He gets 1L of ascitic fluid drained from the migrated Pleurx catheter on MWF. Prior to coming to the hospital it was last drained on Tuesday by his visiting nurse. He had a diagnostic and therapeutic paracentesis performed overnight. His ascitic fluid white count was 8222. Repeat paracentesis demonstrated a transudative ascitic fluid with SAAG > 1. His ascitic fluid culture grew GNR and he was started on Ceftazidime. Vancomycin was discontinued. * ID recommendations appreciated * GI recommendations appreciated * Continue Ceftazidime daily, dose after dialysis today * Metoclopramide discontinued to avoid EPS SHELBY on CKD most likely 2/2 dehydration in the setting of his CKD from PKD Patient is reported to have a baseline of 2-3. His Cr is trending up. On admission Cr was 4.3>>5. He was given 2L of IVF and is currently on an albumin infusion. Patient had an Evin cath placed * Monitor renal function * Continue IV Albumin 25 gm q8 * Nephrology recommendations appreciated * Dialysis today via tunnel cath History of PKD, Polycystic liver disease Patient reported he had an appt at [place] [facility] [facility] in which he was told he wouldn't receive a transplant until the resolution of his ascitic fluid. CT abd/pel demonstrated numerous cysts effectively replacing the normal hepatic and bilateral renal parenchyma Hyperkalemia * Monitor potassium * Continue 2g potassium restriction in diet DVT ppx: ALPS Problem List: 1. Polycystic kidney disease 2. Polycystic liver disease 3. Ascites 4. Hydrothorax Pain Ratin Tomorrow's Labs & Rationales: CBC, Bundle Plan DVT/Prophylaxis: mechanical Suhail Morocho MD 03/28/17 0900: Attending MD Review Statement Attending Sign Off Attending Cosign Statement: I have: examined this patient, reviewed [facility] EMR data, personally reviewd images, discussd w/resident/PA/COFFEE TASTER, discussed mgmt plan w/klever, discussed mgmt plan w/CM, discussed mgmt plan w/pt, agreed w/resident/PA/COFFEE TASTER, amended to note. Other Findings: Impression 66 year old man * In ICU secondary to acute hypoxemic respiratory failure secondary to ascites that has traversed the diaphgragm causing ascitic fluid in the pleural cavity that is now growing pseudomonas, E.Coli - his respiratory failure has improved to a nasal cannula from a high flow oxygen cannula * Polycystic kidney and liver disease * Narrow complex tachycardia overnight - likely SVT * Peritonitis secondary to an indwelling pleural catheter * SHELBY on CKD Plan Respiratory -now on nasal cannula improved -cont to monitor chest tube output -f/u Dr. Carson's recommendations - we are in agreement to leave the catheter in the meantime ID -ID recommendations are appreciated -ceftazadime 1gm q24h CVS -monitor hemodynamics -cardiology consultation (Dr. Menchaca was called) -currently on verapamil and heart has been controlled -ECHO reviewed from 03/22 - small pericardial effusion Heme -monitor cbc, coags Metabolic -HD per nephrology -with respect to the future we will treat the acute issues and once hopefully Mr. Tijerina recovers he should be evaluated for a liver/kidney transplantation, having said that the transplantation would be dependent on all of his comorbid conditions -potassium restriction diet Alimentary -nutrition follow up Neuro -no acute issues DVT prophylaixs at all times - chemical prophylaxis is held for IR procedure, in the meantime use ALPS TTS 35 min
[2017-03-28 08:00] VITALS: BP 92/60
--- NOTE | 2017-03-28 10:29 | PN- Nephrology ---
Assessment/Plan Assessment: 1. SHELBY superimposed upon advanced chronic kidney disease, stage IV, secondary to autosomal dominant polycystic kidney disease. He is oligo-anuric. There is, as of yet, no sign of renal recovery. He is complaining of nausea today. Today , dialysis will be initiated. His next dialysis will likely be on Tuesday 2. Peritonitis/infected catheter. 3. Autosomal dominant polycystic kidney disease Suggestion: 1. 2.5 hours of dialysis today. The blood flow will be 250. 2. Will plan on dialysis today and again on Tuesday 3. Epogen to be started 4. Maintain Renvela 2 with each meal. 5. In view of his increased anion gap, and his total CO2 of 15, the bicarbonate dialysate will be increased to 37. Subjective Subjective: Patient says his nausea is less today. Seen with hemodialysis in progress. Objective Vital Signs and I&Os Vital Signs Date Time Temp Pulse Resp B/P B/P Pulse O2 O2 Flow FiO2 Mean Ox Delivery Rate 03/28 0800 96 Room Air 03/28 0800 98.2 96 16 92/60 96 Room Air 03/28 0400 96 Room Air Room Air 03/28 0000 95 Room Air Room Air 03/27 2300 98.1 80 16 90/60 95 Room Air Room Air 03/27 2205 82 12 88/62 03/27 2000 96 Room Air Room Air 03/27 1656 89 90/41 03/27 1600 96 Room Air Room Air 03/27 1600 98.6 92 16 108/60 98 Room Air Room Air 03/27 1200 98 Nasal 1.0L Cannula Intake & Output 03/28 1600 03/28 0400 03/27 1600 03/27 0400 03/26 1600 03/26 0400 Intake Total 160 150 250 200 300 220 Output Total 30 70 105 1790 510 110 Balance 130 80 145 -1590 -210 110 Intake, IV 100 100 100 200 100 120 Intake, Oral 60 50 150 200 100 Number 0 3 3 1 Bowel Movements Output, Chest 10 35 40 360 60 Tube Drainage Output, 1400 Dialysate Output, Urine 30 60 70 350 150 50 Patient 134 lb 145 lb Weight Weight Chair scale Bed scale Measurement Method Physical Exam: General Appearance: well developed/nourished, no apparent distress, alert, awake. Head: atraumatic, normal appearance Eyes: Bilateral: PERRL, EOMI, pale conjunctivae. Ears, Nose, Throat: normal pharynx, normal ENT inspection, hearing grossly normal Neck: normal inspection, supple, full range of motion Respiratory: normal breath sounds, chest non-tender, lungs clear Cardiovascular: regular rate/rhythm no murmurs or rubs Gastrointestinal: normal bowel sounds, distention, hepatomegaly, palpable cysts, caput medusae Back: normal inspection, no vertebral tenderness Extremities: normal inspection now with jordy-ankle edema Neurologic/Psych: awake, alert, oriented x 3, No grosss neurologic deficit Cranial Nerves: normal hearing, normal speech, PERRL Skin: intact, normal color, warm/dry Current Medications: Current Medications Sig/Lola Start time Last Medication Dose Route Stop Time Status Admin Acetaminophen 325 MG Q4P PRN 03/21 2115 AC 03/26 PO 1707 Albumin Human 25 GM Q8 03/24 2200 AC 03/28 IV 0634 Ceftazidime 1,000 MG Q24H 03/27 0800 AC 03/27 IV 0811 Hydrocodone Bitart/ 1 TAB Q6P PRN 03/21 2100 AC 03/25 Acetaminophen PO 0035 Metoclopramide HCl 10 MG Q6P PRN 03/21 2315 DC 03/27 IV 0627 Metoprolol Tartrate 6.25 MG BID 03/25 2200 AC 03/26 PO 1657 Morphine Sulfate 2 MG Q4P PRN 03/21 2100 AC 03/25 IV 1800 Multivitamins 1 TAB 1700 03/25 1700 AC 03/27 PO 1655 Omeprazole 40 MG DAILY AC 03/25 1648 AC 03/28 PO 0636 Ondansetron HCl 4 MG ONCE PRN 03/28 0830 03/28 IV 0833 Ondansetron HCl 4 MG ONCE ONE 03/27 1345 DC 03/27 IV 03/27 1346 1421 Sevelamer Carbonate 1,600 MG WITH MEALS 03/24 1700 AC 03/28 PO 0833 Trimethobenzamide HCl 200 MG TID PRN 03/27 2015 AC 03/28 IM 0419 Verapamil HCl 180 MG DAILY 03/25 0745 03/27 PO 0953 Results Pertinent Lab Results: Laboratory Tests 03/28 03/28 0614 0413 Chemistry Sodium (137 - 145 mmol/L) 141 Potassium (3.5 - 5.1 mmol/L) 4.8 Chloride (98 - 107 mmol/L) 105 Carbon Dioxide (22 - 30 mmol/L) 14 L Anion Gap (5 - 16) 22 H BUN (9 - 20 mg/dL) 90 H Creatinine (0.7 - 1.2 mg/dL) 5.0 H Estimated GFR (>60 ml/min) 12 L Glucose (65 - 99 mg/dL) 83 Calcium (8.4 - 10.2 mg/dL) 8.4 Phosphorus (2.5 - 4.5 mg/dL) 6.2 H Magnesium (1.6 - 2.3 mg/dL) 2.0 Total Bilirubin (0.2 - 1.3 mg/dL) 1.1 Direct Bilirubin (< 0.4 mg/dL) 0.9 H AST (17 - 59 U/L) 16 L ALT (21 - 72 U/L) 28 Alkaline Phosphatase (< 127 U/L) 132 H Total Protein (6.3 - 8.2 g/dL) 5.6 L Albumin (3.5 - 5.0 g/dL) 3.4 L Hematology CBC w Diff MAN DIFF ORDERED WBC (4.8 - 10.8 /CUMM) 11.3 H RBC (4.70 - 6.10 /CUMM) 3.56 L Hgb (14.0 - 18.0 G/DL) 8.8 L Hct (42 - 52 %) 27.5 L MCV (80.0 - 94.0 FL) 77.2 L MCH (27.0 - 31.0 PG) 24.7 L RDW (11.5 - 14.5 %) 19.9 H Plt Count (130 - 400 /CUMM) 182 MPV (7.4 - 10.4 FL) 10.3 Segmented Neutrophils (42.2 - 75.2 %) 81 H Lymphocytes (20.5 - 51.1 %) 7 L Monocytes (1.7 - 9.3 %) 12 H Platelet Estimate (ADEQUATE) ADEQUATE Hypochromic-Microcytic 1+ Poikilocytosis 2+ Anisocytosis 1+ Microcytic Cells 1+ Ovalocytes 1+ Ahsan Cells 1+ Elliptocytes FEW PUBS MCHC (33.0 - 37.0 G/DL) 32.0 L Other Body Source Fld Total RBCs Counted (%) 100 03/27 03/26 0314 1236 Chemistry Sodium (137 - 145 mmol/L) 141 Potassium (3.5 - 5.1 mmol/L) 4.7 Chloride (98 - 107 mmol/L) 104 Carbon Dioxide (22 - 30 mmol/L) 15 L Anion Gap (5 - 16) 23 H BUN (9 - 20 mg/dL) 79 H Creatinine (0.7 - 1.2 mg/dL) 4.3 H Estimated GFR (>60 ml/min) 14 L Glucose (65 - 99 mg/dL) 98 Calcium (8.4 - 10.2 mg/dL) 8.7 Phosphorus (2.5 - 4.5 mg/dL) 6.3 H Magnesium (1.6 - 2.3 mg/dL) 2.1 Iron (49 - 181 ug/dL) 20 L TIBC (261 - 462 ug/dL) 166 L Ferritin (17.9 - 464 ng/mL) 131.0 Total Bilirubin (0.2 - 1.3 mg/dL) 1.4 H AST (17 - 59 U/L) 16 L ALT (21 - 72 U/L) 35 Albumin (3.5 - 5.0 g/dL) 3.8 Hematology CBC w Diff NO MAN DIFF REQ WBC (4.8 - 10.8 /CUMM) 9.4 RBC (4.70 - 6.10 /CUMM) 3.73 L Hgb (14.0 - 18.0 G/DL) 9.1 L Hct (42 - 52 %) 29.0 L MCV (80.0 - 94.0 FL) 77.6 L MCH (27.0 - 31.0 PG) 24.3 L RDW (11.5 - 14.5 %) 20.8 H Plt Count (130 - 400 /CUMM) 195 MPV (7.4 - 10.4 FL) 9.9 Gran % (42.2 - 75.2 %) 77.5 H Lymphocytes % (20.5 - 51.1 %) 12.1 L Monocytes % (1.7 - 9.3 %) 10.0 H Eosinophils % (0 - 5 %) 0.4 Basophils % (0.0 - 2.0 %) 0 Absolute Granulocytes (1.4 - 6.5 /CUMM) 7.3 H Absolute Lymphocytes (1.2 - 3.4 /CUMM) 1.1 L Absolute Monocytes (0.10 - 0.60 /CUMM) 0.9 H Absolute Eosinophils (0.0 - 0.7 /CUMM) 0 Absolute Basophils (0.0 - 0.2 /CUMM) 0 PUBS MCHC (33.0 - 37.0 G/DL) 31.3 L 03/26 0400 Chemistry Sodium (137 - 145 mmol/L) 142 Potassium (3.5 - 5.1 mmol/L) 5.1 Chloride (98 - 107 mmol/L) 107 Carbon Dioxide (22 - 30 mmol/L) 11 L Anion Gap (5 - 16) 24 H BUN (9 - 20 mg/dL) 105 *H Creatinine (0.7 - 1.2 mg/dL) 5.6 *H Estimated GFR (>60 ml/min) 10 L Glucose (65 - 99 mg/dL) 85 Calcium (8.4 - 10.2 mg/dL) 8.5 Phosphorus (2.5 - 4.5 mg/dL) 8.3 H Magnesium (1.6 - 2.3 mg/dL) 2.2 Total Bilirubin (0.2 - 1.3 mg/dL) 0.9 AST (17 - 59 U/L) 19 ALT (21 - 72 U/L) 32 Albumin (3.5 - 5.0 g/dL) 3.5 Hematology CBC w Diff MAN DIFF ORDERED WBC (4.8 - 10.8 /CUMM) 7.2 RBC (4.70 - 6.10 /CUMM) 3.90 L Hgb (14.0 - 18.0 G/DL) 9.7 L Hct (42 - 52 %) 30.6 L MCV (80.0 - 94.0 FL) 78.4 L MCH (27.0 - 31.0 PG) 24.8 L RDW (11.5 - 14.5 %) 21.2 H Plt Count (130 - 400 /CUMM) 177 MPV (7.4 - 10.4 FL) 9.6 Segmented Neutrophils (42.2 - 75.2 %) 89 H Band Neutrophils (0.0 - 5.0 %) 1 Lymphocytes (20.5 - 51.1 %) 5 L Monocytes (1.7 - 9.3 %) 5 Nucleated RBCs (0.0 - 0.0 /100WBC) 1 H Platelet Estimate (ADEQUATE) ADEQUATE Hypochromic-Microcytic 1+ Ahsan Cells 2+ PUBS MCHC (33.0 - 37.0 G/DL) 31.6 L
[2017-03-28 12:00] VITALS: BP 90/60
--- NOTE | 2017-03-28 15:01 | PN- Cardiology ---
Subjective Subjective: The patient reports that he is comfortable. No chest pain. No palpitations. No shortness of breath. No diaphoresis. He has had no recent SVT or other significant arrhythmias on telemetry. He will be receiving dialysis today. Objective Vital Signs and I&Os Vital Signs Date Time Temp Pulse Resp B/P B/P Pulse O2 O2 Flow FiO2 Mean Ox Delivery Rate 03/28 1420 104 101/74 03/28 1333 96 80/60 03/28 1200 96 Room Air 03/28 1200 97.9 100 14 90/60 96 Room Air 03/28 0800 96 Room Air 03/28 0800 98.2 96 16 92/60 96 Room Air 03/28 0400 96 Room Air Room Air 03/28 0000 95 Room Air Room Air 03/27 2300 98.1 80 16 90/60 95 Room Air Room Air 03/27 2205 82 12 88/62 03/27 2000 96 Room Air Room Air 03/27 1656 89 90/41 03/27 1600 96 Room Air Room Air 03/27 1600 98.6 92 16 108/60 98 Room Air Room Air Intake & Output 03/28 1600 03/28 0800 03/28 0000 03/27 1600 03/27 0800 03/27 0000 Intake Total 525 160 150 50 200 200 Output Total 1440 30 70 85 20 1790 Balance -915 130 80 -35 180 -1590 Intake, IV 135 100 100 100 200 Intake, Oral 390 60 50 50 100 Number 0 3 1 2 Bowel Movements Output, Chest 10 10 15 20 40 Tube Drainage Output, 1400 1400 Dialysate Output, Urine 30 30 60 70 0 350 Patient 132 lb 134 lb Weight Weight Chair scale Chair scale Measurement Method Physical Exam: Gen: NAD HEENT: normal Lungs: clear to auscultation, normal resp. effort Heart: RRR, S1, S2, 1/6 systolic murmur Abdomen: Soft, nontender, no masses Extremities: 1+ edema Neuro: Alert and oriented x 3, cranial nerves intact Current Medications: Current Medications Sig/Lola Start time Last Medication Dose Route Stop Time Status Admin Acetaminophen 325 MG Q4P PRN 03/21 2114 AC 03/26 PO 1707 Albumin Human 25 GM Q8 03/24 2200 AC 03/28 IV 1406 Ceftazidime 1,000 MG Q24H 03/27 0800 AC 03/28 IV 1230 Heparin Sodium 5,000 UNIT Q8 03/28 1444 AC (Porcine) SC Hydrocodone Bitart/ 1 TAB Q6P PRN 03/21 2100 AC 03/25 Acetaminophen PO 0035 Metoprolol Tartrate 6.25 MG BID 03/25 2200 AC 03/26 PO 1657 Morphine Sulfate 2 MG Q4P PRN 03/21 2100 AC 03/28 IV 1218 Multivitamins 1 TAB 1700 03/25 1700 AC 03/27 PO 1655 Omeprazole 40 MG DAILY AC 03/25 1648 AC 03/28 PO 0636 Ondansetron HCl 4 MG ONCE PRN 03/28 0830 AC 03/28 IV 0833 Sevelamer Carbonate 1,600 MG WITH MEALS 03/24 170 AC 03/28 PO 1437 Trimethobenzamide HCl 200 MG TID PRN 03/27 2015 AC 03/28 IM 0419 Verapamil HCl 180 MG DAILY 03/25 0745 AC 03/28 PO 1420 Results Last 48 Hrs of Labs/Mics: Laboratory Tests 03/28/17 0614: Anion Gap 22 H, Estimated GFR 12 L, Glucose 83, Calcium 8.4, Phosphorus 6.2 H , Magnesium 2.0, Total Bilirubin 1.1, Direct Bilirubin 0.9 H, AST 16 L, ALT 28 , Alkaline Phosphatase 132 H, Total Protein 5.6 L, Albumin 3.4 L 03/28/17 0413: CBC w Diff MAN DIFF ORDERED, RBC 3.56 L, MCV 77.2 L, MCH 24.7 L, RDW 19.9 H, MPV 10.3, Segmented Neutrophils 81 H, Lymphocytes 7 L, Monocytes 12 H, Platelet Estimate ADEQUATE, Hypochromic-Microcytic 1+, Poikilocytosis 2+, Anisocytosis 1+, Microcytic Cells 1+, Ovalocytes 1+, Ahsan Cells 1+, Elliptocytes FEW, PUBS MCHC 32.0 L, Fld Total RBCs Counted 100 03/27/17 0314: Anion Gap 23 H, Estimated GFR 14 L, Glucose 98, Calcium 8.7, Phosphorus 6.3 H , Magnesium 2.1, Total Bilirubin 1.4 H, AST 16 L, ALT 35, Albumin 3.8, CBC w Diff NO MAN DIFF REQ, RBC 3.73 L, MCV 77.6 L, MCH 24.3 L, RDW 20.8 H, MPV 9.9, Gran % 77.5 H, Lymphocytes % 12.1 L, Monocytes % 10.0 H, Eosinophils % 0.4, Basophils % 0, Absolute Granulocytes 7.3 H, Absolute Lymphocytes 1.1 L, Absolute Monocytes 0.9 H, Absolute Eosinophils 0, Absolute Basophils 0, PUBS MCHC 31.3 L Assessment/Plan Assessment/Plan Assessment: 1. Nonsustained superventricular tachycardia-stable with no significant arrhythmias over the last 24 hours 2. Ascites with SBP vs Catheter-associated Peritonitis 3. Acute on chronic renal insufficiency with polycystic kidneys 4. Polycystic liver disease 5. Hyperkalemia 6. Microcytic anemia Recommendations: * Continue oral metoprolol and verapamil * Continue to monitor for recurrent arrhythmia * Episodes of recurrent SVT should be treated with IV adenosine if needed. Continue telemetry? Yes
--- NOTE | 2017-03-28 15:01 | PN- Infect Dx ---
Subjective Subjective: Persistent nausea; abd pain earlier today (received Morphine). No fever. No burning when voiding. Review of Systems Comments: 12 points reviewed as noted, otherwise negative. Objective Last 24 Hrs of Vital Signs/I&O Vital Signs Date Time Temp Pulse Resp B/P B/P Pulse O2 O2 Flow FiO2 Mean Ox Delivery Rate 03/28 1420 104 101/74 03/28 1333 96 80/60 03/28 1200 96 Room Air 03/28 1200 97.9 100 14 90/60 96 Room Air 03/28 0800 96 Room Air 03/28 0800 98.2 96 16 92/60 96 Room Air 03/28 0400 96 Room Air Room Air 03/28 0000 95 Room Air Room Air 03/27 2300 98.1 80 16 90/60 95 Room Air Room Air 03/27 2205 82 12 88/62 03/27 2000 96 Room Air Room Air 03/27 1656 89 90/41 03/27 1600 96 Room Air Room Air 03/27 1600 98.6 92 16 108/60 98 Room Air Room Air Intake & Output 03/28 1600 03/28 0800 03/28 0000 Intake Total 525 160 150 Output Total 1440 30 70 Balance -915 130 80 Intake, IV 135 100 100 Intake, Oral 390 60 50 Number 0 3 Bowel Movements Output, Chest 10 10 Tube Drainage Output, 1400 Dialysate Output, Urine 30 30 60 Patient 132 lb 134 lb Weight Weight Chair scale Chair scale Measurement Method Physical Exam Other Physical Findings: He appears comfortable in no acute distress, cachectic Neck no SIMONE Lungs bibasilar crackles Heart regular rhythm with no murmur, HD cath in place w/o surrounding erythema Abdomen is distended, nontender with positive bowel sounds Extremities 2+ edema both lower extremities Results Last 24 Hours of Lab Results: Laboratory Tests 03/28 03/28 0614 0413 Chemistry Sodium (137 - 145 mmol/L) 141 Potassium (3.5 - 5.1 mmol/L) 4.8 Chloride (98 - 107 mmol/L) 105 Carbon Dioxide (22 - 30 mmol/L) 14 L Anion Gap (5 - 16) 22 H BUN (9 - 20 mg/dL) 90 H Creatinine (0.7 - 1.2 mg/dL) 5.0 H Estimated GFR (>60 ml/min) 12 L Glucose (65 - 99 mg/dL) 83 Calcium (8.4 - 10.2 mg/dL) 8.4 Phosphorus (2.5 - 4.5 mg/dL) 6.2 H Magnesium (1.6 - 2.3 mg/dL) 2.0 Total Bilirubin (0.2 - 1.3 mg/dL) 1.1 Direct Bilirubin (< 0.4 mg/dL) 0.9 H AST (17 - 59 U/L) 16 L ALT (21 - 72 U/L) 28 Alkaline Phosphatase (< 127 U/L) 132 H Total Protein (6.3 - 8.2 g/dL) 5.6 L Albumin (3.5 - 5.0 g/dL) 3.4 L Hematology CBC w Diff MAN DIFF ORDERED WBC (4.8 - 10.8 /CUMM) 11.3 H RBC (4.70 - 6.10 /CUMM) 3.56 L Hgb (14.0 - 18.0 G/DL) 8.8 L Hct (42 - 52 %) 27.5 L MCV (80.0 - 94.0 FL) 77.2 L MCH (27.0 - 31.0 PG) 24.7 L RDW (11.5 - 14.5 %) 19.9 H Plt Count (130 - 400 /CUMM) 182 MPV (7.4 - 10.4 FL) 10.3 Segmented Neutrophils (42.2 - 75.2 %) 81 H Lymphocytes (20.5 - 51.1 %) 7 L Monocytes (1.7 - 9.3 %) 12 H Platelet Estimate (ADEQUATE) ADEQUATE Hypochromic-Microcytic 1+ Poikilocytosis 2+ Anisocytosis 1+ Microcytic Cells 1+ Ovalocytes 1+ Ahsan Cells 1+ Elliptocytes FEW PUBS MCHC (33.0 - 37.0 G/DL) 32.0 L Other Body Source Fld Total RBCs Counted (%) 100 Last 24 Hours of Clarke Results: SPEC #: [id number] ELIZABETH: 03/22/17 STATUS: COMP RECD: 03/22/[address]: [facility] SOURCE: BLOOD ENTR: 03/22/17-[address]: Tracy LYONS,Celso SPDESC: 2ND/VENOUS Finesse LYONS, Zully Lehman MD,Mervin Fowler ORDERED: BLOOD CULTURE Procedure Result > BLOOD CULTURE REPORT Final 03/28/17-804 NO GROWTH AFTER FIVE DAYS Recent Imaging Studies: IMPRESSION: Successful placement of 19 cm tip to cuff tunneled hemodialysis catheter using fluoroscopic and ultrasound guidance. DICTATED BY: Kaleb Johnson MD DATE/TIME DICTATED:03/25/171706 EQUIPMENT OPERATION INSTRUCTOR:[place] DATE/TIME TRANSCRIBED:03/25/171706 Assessment/Plan Impression: 66-year-old man with a history of polycystic kidney and liver disease, hypertension and chronic kidney disease admitted 03/21/17. Stable, with temperatures and white blood cell count remaining normal, on Ceftazidime for a gram-negative (Escherichia coli and Pseudomonas) peritonitis secondary to a Pleurex catheter, status post its removal, in the OR, 4 days ago from the peritoneal cavity, where it had migrated, resulting in a large right pleural effusion secondary to flow of ascitic fluid through the diaphragm, with placement of a pigtail catheter. SHELBY superimposed on his underlying polycystic kidney (and liver) disease, and underwent first HD 03/26/17. Persistent nausea (question if side effect to morphine vs tense ascites) Hypoalbuminemia Mild leukocytosis Suggestion: 1. Further management of his chest tube and the peritoneal -pleural fistula per Thoracic surgery 2. Cont Ceftazidime to 1 g IV every 24 hours; give after HD on dialysis days. 3. Symptomativ tx nausea. 4. Monitor CBC, BMP. Consider repeating paracentesis/ascitic fluid culture. 5. Call if fever.
[2017-03-28 16:00] VITALS: BP 104/60
[2017-03-29] VITALS: BP 92/60
[2017-03-29 05:06] LABS: ABSOLUTE BASOPHIL COUNT 0 /CUMM (0.0-0.2); ABSOLUTE EOSINOPHIL COUNT 0 /CUMM (0.0-0.7); ABSOLUTE GRANULOCYTE CT 12.3 /CUMM (1.4-6.5); ABSOLUTE LYMPH COUNT 0.6 /CUMM (1.2-3.4); ABSOLUTE MONOCYTE COUNT 0.8 /CUMM (0.10-0.60); BASOPHIL % 0 % (0.0-2.0); EOSINOPHIL % 0.3 % (0-5); GRANULOCYTE % 89.4 % (42.2-75.2); HEMATOCRIT 28.5 % (42-52); MEAN CORPUSCULAR HGB 25.2 PG (27.0-31.0); MEAN CORPUSCULAR HGB CONC 32.6 G/DL (33.0-37.0); MEAN CORPUSCULAR VOLUME 77.3 FL (80.0-94.0); MEAN PLATELET VOLUME 11.3 FL (7.4-10.4); RBC DISTRIBUTION WIDTH 20.6 % (11.5-14.5); RED BLOOD CELL CT 3.68 /CUMM (4.70-6.10); WHITE BLOOD CELL COUNT 13.7 /CUMM (4.8-10.8)
[2017-03-29 05:30] LABS: PLATELET COUNT 189 /CUMM (130-400)
[2017-03-29 08:00] VITALS: BP 102/70
--- NOTE | 2017-03-29 08:23 | PN- Resident CRCU ---
Danyelle LYONS,Irasema 03/29/17 0822: Subjective HPI/CRCU Issues: Catheter-associated Peritonitis SHELBY on CKD on HD Nonsustained SVT - resolved Hyperkalemia - resolved Acute hypoxic respiratory failure - resolved 24 Hour Events: Resting comfortably, slept well overnight. No active complaints. White count has been trending up past 48 hours. No fevers. Reports having 2 loose bowel movements since yesterday. Objective Vital Signs & I&O Last 8 Hrs of Vitals and I&O: Intake & Output 03/29 1600 Intake Total Output Total Balance Patient 148 lb Weight Weight Chair scale Measurement Method Exam General Appearance: well developed/nourished, no apparent distress, alert, awake , comfortable Head: atraumatic, normal appearance Respiratory: normal breath sounds, chest non-tender, no respiratory distress Cardiovascular: regular rate/rhythm Gastrointestinal: normal bowel sounds, soft, non-tender, distention, palpable cysts Extremities: no edema Current Medications: Current Medications Sig/Lola Start time Last Medication Dose Route Stop Time Status Admin Acetaminophen 325 MG Q4P PRN 03/21 2115 AC 03/26 PO 1707 Albumin Human 25 GM Q8 03/24 220 AC 03/29 IV 0557 Ceftazidime 1,000 MG Q24H 03/27 0800 AC 03/29 IV 0807 Epoetin Bryan 3,000 UNITS 03/30 1000 AC IV Heparin Sodium 5,000 UNIT Q8 03/28 1444 AC 03/29 (Porcine) SC 0603 Hydrocodone Bitart/ 1 TAB Q6P PRN 03/21 2100 DC 03/25 Acetaminophen PO 0035 Metoprolol Tartrate 6.25 MG BID 03/25 2199 AC 03/29 PO 1057 Morphine Sulfate 2 MG Q4P PRN 03/21 2100 AC 03/29 IV 1243 Multivitamins 1 TAB 1700 03/25 1700 AC 03/28 PO 1708 Omeprazole 40 MG DAILY AC 03/25 1648 AC 03/29 PO 0607 Ondansetron HCl 4 MG ONCE ONE 03/28 2199 DC 03/28 IV 03/28 Ondansetron HCl 4 MG ONCE PRN 03/28 0830 AC 03/28 IV 0833 Sevelamer Carbonate 1,600 MG WITH MEALS 03/24 1700 AC 03/29 PO 1131 Trimethobenzamide HCl 200 MG TID PRN 03/27 2014 03/29 IM 0209 Verapamil HCl 180 MG DAILY 03/25 0745 03/29 PO 0934 Impression/Plan Impression/Problem List Impression: Mr. Tijerina is a 66 yo m with a PMH of PKD, Polycystic liver disease, portal HTN , HTN, HLD, umbilical hernia repair, colon ademona, GERD who presented to the ED with NVD with progressively worsened abdominal distention from ascitic fluid. Assessment and Plan: Nonsustained SVT - resolved Patient experienced 2 episodes of SVT with HR up to 180s. He was asymptomatic during both events. During the first event he was administered IV Metoprolol 5 mg. The second event spontaneously resolved and did not require medical management * Continue Metoprolol 6.25 mg BID * Cardiology recommendations appreciated * Will administer Adenosine for any acute events Acute Hypoxic Respiratory Failure s/p Pleurx Cath removal: Patient has a patent connection between abdominal cavity and pleural space 2/2 migrated indwelling catheter, leading to transfer of ascitic fluid to the pleural space. A pig tail was placed. As per Dr. Carson options are to watch and wait to see if spontaneously resolves vs surgical intervention. PA/Lateral CXR on 03/25 for pleural effusion demonstrated no significant pleural effusion or evidence of pneumothorax. ECHO demonstrated Aortic sclerosis is present with no valvular stenosis or insufficiency, a very small pericardial effusion, EF 55-60 % * Continue pigtail catheter drainage connected to water seal * Surgery recommendations appreciated * TRC/nebs, oxygen supplementation PRN. Currently on room air. * Repeat CXR today to assess for accumulation of pleural fluid. Catheter-associated Peritonitis: Patient had an indwelling pleural catheter placed in July 2016 for pleural effusion that migrated into the abdominal cavity. Considering that the patient's catheter was never removed it can be a possible source of infection. He had another catheter placed in the R lung that was eventually removed. CT abdomen/ pelvis on admission demonstrated the resolution of his R-side pleural effusion. He gets 1L of ascitic fluid drained from the migrated Pleurx catheter on . Prior to coming to the hospital it was last drained on Tuesday by his visiting nurse. He had a diagnostic and therapeutic paracentesis performed. His ascitic fluid white count was 8222. Repeat paracentesis demonstrated a transudative ascitic fluid with SAAG > 1. His ascitic fluid culture grew GNR and he was started on Ceftazidime. Vancomycin was discontinued. * ID recommendations appreciated. * His white count is rising concerning for a new infection. Will monitor for now. * Continue Ceftazidime daily. * Continue IV albumin 25gm q8. * Metoclopramide discontinued to avoid EPS * No plans for surgical closure of the diaphargmatic connection. Will await as long as possible. SHELBY on CKD most likely 2/2 dehydration in the setting of his CKD from PKD: Patient is reported to have a baseline Cr of 2-3. His Cr initially elicoe on admission but has trended down. Patient had an Evin cath placed * Continue to monitor renal function * Continue IV Albumin 25 gm q8 * Nephrology recommendations appreciated * Dialysis M/W/F * Continue Epogen with dialysis. History of PKD, Polycystic liver disease: Patient reported he had an appt at [facility] in which he was told he wouldn't receive a transplant until the resolution of his ascitic fluid. CT abd/pel demonstrated numerous cysts effectively replacing the normal hepatic and bilateral renal parenchyma Diet: Regular Diet with 2g K restriction. DVT Prophylaxis: ALPS Code Status: Full Problem List: 1. Ascites Pain Ratin Tomorrow's Labs & Rationales: CBC, ICU Bundle Plan DVT/Prophylaxis: mechanical Merly LYONS,Anderson Rowe 03/29/17 0901: Attending MD Review Statement Attending Sign Off Attending Cosign Statement: I have: examined this patient, reviewed [facility] EMR data, personally reviewd images, discussd w/resident/PA/CURBING STONECUTTER, discussed mgmt plan w/pt, agreed w/resident/ PA/CURBING STONECUTTER, amended to note. Reason for Cont Hospitalizatn: 1. In ICU secondary to acute hypoxemic respiratory failure secondary to ascites that has traversed the diaphgragm causing ascitic fluid in the pleural cavity that is now growing pseudomonas, E.Coli - his respiratory failure has improved, now on room air. 2. Polycystic kidney and liver disease 3. Narrow complex tachycardia overnight - likely SVT. 3. Peritonitis secondary to an indwelling pleural catheter. 4. SHELBY on CKD. Plan Respiratory -now improved -cont to monitor chest tube output -f/u Dr. Carson's recommendations - we are in agreement to leave the catheter in the meantime ID -ID recommendations are appreciated -continue ceftazadime 1gm q24h as recommended CVS -monitor hemodynamics -cardiology consultation (Dr. Menchaca was called) -currently on verapamil and heart has been controlled -ECHO reviewed from 03/22 - small pericardial effusion Heme -monitor cbc, coags Metabolic -HD per nephrology -with respect to the future we will treat the acute issues and once hopefully Mr. Tijerina recovers he should be evaluated for a liver/kidney transplantation, having said that the transplantation would be dependent on all of his comorbid conditions -potassium restriction diet Alimentary -nutrition follow up Neuro -no acute issues DVT prophylaixs at all times - chemical prophylaxis is held for IR procedure, in the meantime use ALPS
--- NOTE | 2017-03-29 10:26 | PN- Thoracic Surgery ---
Subjective Subjective: So patient this morning with Anderson Moreland MD. He is complaining mostly of his nausea and vomiting and is unable to eat. He has been out of bed to the bathroom. His respiratory status is stable. Objective Vital Signs and I&Os Vital Signs Date Time Temp Pulse Resp B/P B/P Pulse O2 O2 Flow FiO2 Mean Ox Delivery Rate 03/29 0934 96 106/64 03/29 0400 96 Room Air 03/29 0000 99.0 87 16 92/60 97 Room Air 03/29 0000 97 Room Air 03/28 2248 99.8 93 18 108/70 03/28 2000 96 Room Air 03/28 1600 98.4 97 14 104/60 96 Room Air 03/28 1600 96 Room Air 03/28 1420 104 101/74 03/28 1333 96 80/60 03/28 1200 96 Room Air 03/28 1200 97.9 100 14 90/60 96 Room Air Intake & Output 03/29 1600 03/29 0800 03/29 0000 03/28 1600 03/28 0800 03/28 0000 Intake Total 175 340 525 160 150 Output Total 1440 30 70 Balance 175 340 -915 130 80 Intake, Blood 100 100 Product Intake, IV 135 100 100 Intake, Oral 75 240 390 60 50 Number 3 0 3 Bowel Movements Output, Chest 10 10 Tube Drainage Output, 1400 Dialysate Output, Urine 30 30 60 Patient 132 lb 134 lb Weight Weight Chair scale Chair scale Measurement Method Physical Exam: On examination his breath sounds are clear bilaterally. There is very thin light serous fluid in the drainage catheter. He appears to be draining less than 100 mL a day. Current Medications: Current Medications Sig/Lola Start time Last Medication Dose Route Stop Time Status Admin Acetaminophen 325 MG Q4P PRN 03/21 2115 AC 03/26 PO 1707 Albumin Human 25 GM Q8 03/24 2200 AC 03/29 IV 0557 Ceftazidime 1,000 MG Q24H 03/27 0800 AC 03/29 IV 0807 Heparin Sodium 5,000 UNIT Q8 03/28 1444 AC 03/29 (Porcine) SC 0603 Hydrocodone Bitart/ 1 TAB Q6P PRN 03/21 2100 DC 03/25 Acetaminophen PO 0035 Metoprolol Tartrate 6.25 MG BID 03/250 AC 03/28 PO 2248 Morphine Sulfate 2 MG Q4P PRN 03/21 2100 AC 03/28 IV 1218 Multivitamins 1 TAB 1700 03/25 1700 AC 03/28 PO 1708 Omeprazole 40 MG DAILY AC 03/25 1648 AC 03/29 PO 0607 Ondansetron HCl 4 MG ONCE ONE 03/28 2200 DC 03/28 IV 03/28 220 220 Ondansetron HCl 4 MG ONCE PRN 03/28 0830 AC 03/28 IV 0833 Sevelamer Carbonate 1,600 MG WITH MEALS 03/24 170 AC 03/29 PO 0807 Trimethobenzamide HCl 200 MG TID PRN 03/27 2015 AC 03/29 IM 0209 Verapamil HCl 180 MG DAILY 03/25 0745 AC 03/29 PO 0934 Assessment/Plan Assessment/Plan Very clearly since institution of dialysis the drainage is down. It is also notable that his abdomen is significantly decompressed and less tense. The fluid is in the catheter is very clearly ascitic fluid. If we were to remove the catheter I think the fluid would continue to traverse the diaphragm. He is started dialysis and is clearly markedly malnourished. I discussed the situation with Dr. Corey and I think we should wait as long as possible with the catheter in place for drainage. Surgical closure of the connection may be necessary. There is also the discussion as the patient's ultimate status and consideration for hepatic and renal transplant. I would like to wait as long as possible with any thoracic intervention so for now given the control of the situation we will continue with the drainage catheter and observation. Dr. Corey is in agreement with this as a plan.
--- NOTE | 2017-03-29 10:31 | PN- Infect Dx ---
Subjective Subjective: Afebrile. He continues to complain of nausea. He has had some loose stools alternating with formed stools. Objective Last 24 Hrs of Vital Signs/I&O Vital Signs Date Time Temp Pulse Resp B/P B/P Pulse O2 O2 Flow FiO2 Mean Ox Delivery Rate 03/29 0934 96 106/64 03/29 0400 96 Room Air 03/29 0000 99.0 87 16 92/60 97 Room Air 03/29 0000 97 Room Air 03/28 2248 99.8 93 18 108/70 03/28 2000 96 Room Air 03/28 1600 98.4 97 14 104/60 96 Room Air 03/28 1600 96 Room Air 03/28 1420 104 101/74 03/28 1333 96 80/60 03/28 1200 96 Room Air 03/28 1200 97.9 100 14 90/60 96 Room Air Intake & Output 03/29 1600 03/29 0800 03/29 0000 Intake Total 175 340 Output Total Balance 175 340 Intake, Blood 100 100 Product Intake, Oral 75 240 Number 3 Bowel Movements Physical Exam Other Physical Findings: He appears comfortable in no acute distress Neck dialysis catheter in the right IJ with no inflammation at the site Lungs crackles at the left base; pigtail catheter in place on the right with 10 mL output yesterday Heart regular rhythm with no murmur Abdomen decreased distention, nontender with positive bowel sounds Extremities no cyanosis, clubbing or edema Results Last 24 Hours of Lab Results: Laboratory Tests 03/29 0400 Chemistry Sodium (137 - 145 mmol/L) 141 Potassium (3.5 - 5.1 mmol/L) 4.9 Chloride (98 - 107 mmol/L) 101 Carbon Dioxide (22 - 30 mmol/L) 20 L Anion Gap (5 - 16) 20 H BUN (9 - 20 mg/dL) 73 H Creatinine (0.7 - 1.2 mg/dL) 4.2 H Estimated GFR (>60 ml/min) 14 L Glucose (65 - 99 mg/dL) 118 H Calcium (8.4 - 10.2 mg/dL) 9.0 Phosphorus (2.5 - 4.5 mg/dL) 4.2 Magnesium (1.6 - 2.3 mg/dL) 1.9 Total Bilirubin (0.2 - 1.3 mg/dL) 1.4 H AST (17 - 59 U/L) 21 ALT (21 - 72 U/L) 22 Albumin (3.5 - 5.0 g/dL) 3.9 Hematology CBC w Diff NO MAN DIFF REQ WBC (4.8 - 10.8 /CUMM) 13.7 H RBC (4.70 - 6.10 /CUMM) 3.68 L Hgb (14.0 - 18.0 G/DL) 9.3 L Hct (42 - 52 %) 28.5 L MCV (80.0 - 94.0 FL) 77.3 L MCH (27.0 - 31.0 PG) 25.2 L RDW (11.5 - 14.5 %) 20.6 H Plt Count (130 - 400 /CUMM) 189 MPV (7.4 - 10.4 FL) 11.3 H Gran % (42.2 - 75.2 %) 89.4 H Lymphocytes % (20.5 - 51.1 %) 4.2 L Monocytes % (1.7 - 9.3 %) 6.1 Eosinophils % (0 - 5 %) 0.3 Basophils % (0.0 - 2.0 %) 0 Absolute Granulocytes (1.4 - 6.5 /CUMM) 12.3 H Absolute Lymphocytes (1.2 - 3.4 /CUMM) 0.6 L Absolute Monocytes (0.10 - 0.60 /CUMM) 0.8 H Absolute Eosinophils (0.0 - 0.7 /CUMM) 0 Absolute Basophils (0.0 - 0.2 /CUMM) 0 PUBS MCHC (33.0 - 37.0 G/DL) 32.6 L Last 24 Hours of Clarke Results: No new cultures Assessment/Plan Impression: Stable, with temperatures remaining normal, on Ceftazidime for a gram-negative ( Escherichia coli and Pseudomonas) peritonitis secondary to a Pleurex catheter, which had migrated into the peritoneal cavity, status post its removal in the OR , 1 week ago, with placement of a pigtail catheter in the right chest because of the development of a large right pleural effusion secondary to gushing of fluid from the peritoneal cavity to the pleural cavity, with minimal output over the last 2 days. He has been started on dialysis for worsening renal failure, possibly secondary to sepsis superimposed on his underlying polycystic kidney disease (and liver) disease. His white blood cell count is increasing, suggesting the possibility of a new infection, and further evaluation will be necessary. His bilirubin has increased lately, with his alkaline phosphatase decreased and his other liver enzymes normal. Suggestion: 1. Repeat chest x-ray 2. Stool for C. difficile if diarrhea recurs 3. Consider right upper quadrant ultrasound 4. Further management of his chest tube based on above 5. 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 Continue Ceftazidime
--- NOTE | 2017-03-29 10:45 | PN- Nephrology ---
Assessment/Plan Assessment: SHELBY - Likely 2/2 ATN in the setting of volume depletion while on RAAS inhibition in addition to bacterial peritonitis. Currently dialysis dependent. Stage IV CKD - 2/2 polycystic kidney disease. Baseline SCr approx 2.5-3.0. Will need to monitor for recovery. Not yet ESRD. Peritonitis - Pseudomonas and E coli on fluid culture. On abx and pleurex catheter has been removed although requires drainage of fluid in chest. Blood cultures have been negative. WBC rising again - ?reinfected fluid/catheter. Nausea/vomitting - DDx includes uremia for which he has been started on dialysis. If this is the case, would anticipate some improvement after approx 3 treatments. 3rd HD tentatively set for tomorrow. Anemia - Some degree of iron deficiency although given degree of anemia and in the setting of active infection with rising WBC, would plan for just Epogen. Suggestion: -Plan for HD tomorrow and to remain on MWF schedule -Start Epogen 3000U TIW with HD (MWF) -Abx as per ID Please call [phone] with ?'s Subjective Subjective: Remains nauseated No SOB Not eating much 60cc UOP (voiding into urinal) Afebrile; WBC rising No new micro; blood cultures have been negative (only positive culture was the fluid culture from 03/22) Objective Vital Signs and I&Os Vital Signs Date Time Temp Pulse Resp B/P B/P Pulse O2 O2 Flow FiO2 Mean Ox Delivery Rate 03/29 0934 96 106/64 03/29 0400 96 Room Air 03/29 0000 99.0 87 16 92/60 97 Room Air 03/29 0000 97 Room Air 03/28 2248 99.8 93 18 108/70 03/28 2000 96 Room Air 03/28 1600 98.4 97 14 104/60 96 Room Air 03/28 1600 96 Room Air 03/28 1420 104 101/74 03/28 1333 96 80/60 03/28 1200 96 Room Air 03/28 1200 97.9 100 14 90/60 96 Room Air Intake & Output 03/29 1600 03/29 0400 03/28 1600 03/28 0400 03/27 1600 03/27 0400 Intake Total 175 340 685 150 250 200 Output Total 1470 70 105 1790 Balance 175 340 -785 80 145 -1590 Intake, Blood 100 100 Product Intake, IV 235 100 100 200 Intake, Oral 75 240 450 50 150 Number 3 0 3 3 Bowel Movements Output, Chest 10 10 35 40 Tube Drainage Output, 1400 1400 Dialysate Output, Urine 60 60 70 350 Patient 132 lb Weight Weight Chair scale Measurement Method Physical Exam: Gen - cachectic, chronically ill appearing HEENT - supple CV - RRR, no m/r/g Chest - clear, no w/r/r Abd - distended, nontender Ext - no edema Neuro - AOX3, grossly nonfocal Access - CVC Current Medications: Current Medications Sig/Lola Start time Last Medication Dose Route Stop Time Status Admin Acetaminophen 325 MG Q4P PRN 03/21 2115 AC 03/26 PO 1707 Albumin Human 25 GM Q8 03/24 2200 AC 03/29 IV 0557 Ceftazidime 1,000 MG Q24H 03/27 08 AC 03/29 IV 0807 Heparin Sodium 5,000 UNIT Q8 03/28 1444 AC 03/29 (Porcine) SC 0603 Hydrocodone Bitart/ 1 TAB Q6P PRN 03/21 2100 DC 03/25 Acetaminophen PO 0035 Metoprolol Tartrate 6.25 MG BID 03/25 220 AC 03/28 PO 2248 Morphine Sulfate 2 MG Q4P PRN 03/21 2100 AC 03/28 IV 1218 Multivitamins 1 TAB 1700 03/25 1700 AC 03/28 PO 1708 Omeprazole 40 MG DAILY AC 03/25 1648 AC 03/29 PO 0607 Ondansetron HCl 4 MG ONCE ONE 03/28 2199 DC 03/28 IV 03/28 220 220 Ondansetron HCl 4 MG ONCE PRN 03/28 0830 AC 03/28 IV 0833 Sevelamer Carbonate 1,600 MG WITH MEALS 03/24 1700 AC 03/29 PO 0807 Trimethobenzamide HCl 200 MG TID PRN 03/27 2015 AC 03/29 IM 0209 Verapamil HCl 180 MG DAILY 03/25 0745 AC 03/29 PO 0934 Results Pertinent Lab Results: Laboratory Tests 03/29 03/28 0400 0614 Chemistry Sodium (137 - 145 mmol/L) 141 141 Potassium (3.5 - 5.1 mmol/L) 4.9 4.8 Chloride (98 - 107 mmol/L) 101 105 Carbon Dioxide (22 - 30 mmol/L) 20 L 14 L Anion Gap (5 - 16) 20 H 22 H BUN (9 - 20 mg/dL) 73 H 90 H Creatinine (0.7 - 1.2 mg/dL) 4.2 H 5.0 H Estimated GFR (>60 ml/min) 14 L 12 L Glucose (65 - 99 mg/dL) 118 H 83 Calcium (8.4 - 10.2 mg/dL) 9.0 8.4 Phosphorus (2.5 - 4.5 mg/dL) 4.2 6.2 H Magnesium (1.6 - 2.3 mg/dL) 1.9 2.0 Total Bilirubin (0.2 - 1.3 mg/dL) 1.4 H 1.1 Direct Bilirubin (< 0.4 mg/dL) 0.9 H AST (17 - 59 U/L) 21 16 L ALT (21 - 72 U/L) 22 28 Alkaline Phosphatase (< 127 U/L) 132 H Total Protein (6.3 - 8.2 g/dL) 5.6 L Albumin (3.5 - 5.0 g/dL) 3.9 3.4 L Hematology CBC w Diff NO MAN DIFF REQ WBC (4.8 - 10.8 /CUMM) 13.7 H RBC (4.70 - 6.10 /CUMM) 3.68 L Hgb (14.0 - 18.0 G/DL) 9.3 L Hct (42 - 52 %) 28.5 L MCV (80.0 - 94.0 FL) 77.3 L MCH (27.0 - 31.0 PG) 25.2 L RDW (11.5 - 14.5 %) 20.6 H Plt Count (130 - 400 /CUMM) 189 MPV (7.4 - 10.4 FL) 11.3 H Gran % (42.2 - 75.2 %) 89.4 H Lymphocytes % (20.5 - 51.1 %) 4.2 L Monocytes % (1.7 - 9.3 %) 6.1 Eosinophils % (0 - 5 %) 0.3 Basophils % (0.0 - 2.0 %) 0 Absolute Granulocytes (1.4 - 6.5 /CUMM) 12.3 H Absolute Lymphocytes (1.2 - 3.4 /CUMM) 0.6 L Absolute Monocytes (0.10 - 0.60 /CUMM) 0.8 H Absolute Eosinophils (0.0 - 0.7 /CUMM) 0 Absolute Basophils (0.0 - 0.2 /CUMM) 0 PUBS MCHC (33.0 - 37.0 G/DL) 32.6 L 03/28 03/27 6088 0312 Chemistry Sodium (137 - 145 mmol/L) 141 Potassium (3.5 - 5.1 mmol/L) 4.7 Chloride (98 - 107 mmol/L) 104 Carbon Dioxide (22 - 30 mmol/L) 15 L Anion Gap (5 - 16) 23 H BUN (9 - 20 mg/dL) 79 H Creatinine (0.7 - 1.2 mg/dL) 4.3 H Estimated GFR (>60 ml/min) 14 L Glucose (65 - 99 mg/dL) 98 Calcium (8.4 - 10.2 mg/dL) 8.7 Phosphorus (2.5 - 4.5 mg/dL) 6.3 H Magnesium (1.6 - 2.3 mg/dL) 2.1 Total Bilirubin (0.2 - 1.3 mg/dL) 1.4 H AST (17 - 59 U/L) 16 L ALT (21 - 72 U/L) 35 Albumin (3.5 - 5.0 g/dL) 3.8 Hematology CBC w Diff MAN DIFF ORDERED NO MAN DIFF REQ WBC (4.8 - 10.8 /CUMM) 11.3 H 9.4 RBC (4.70 - 6.10 /CUMM) 3.56 L 3.73 L Hgb (14.0 - 18.0 G/DL) 8.8 L 9.1 L Hct (42 - 52 %) 27.5 L 29.0 L MCV (80.0 - 94.0 FL) 77.2 L 77.6 L MCH (27.0 - 31.0 PG) 24.7 L 24.3 L RDW (11.5 - 14.5 %) 19.9 H 20.8 H Plt Count (130 - 400 /CUMM) 182 195 MPV (7.4 - 10.4 FL) 10.3 9.9 Gran % (42.2 - 75.2 %) 77.5 H Lymphocytes % (20.5 - 51.1 %) 12.1 L Monocytes % (1.7 - 9.3 %) 10.0 H Eosinophils % (0 - 5 %) 0.4 Basophils % (0.0 - 2.0 %) 0 Absolute Granulocytes (1.4 - 6.5 /CUMM) 7.3 H Segmented Neutrophils (42.2 - 75.2 %) 81 H Absolute Lymphocytes (1.2 - 3.4 /CUMM) 1.1 L Lymphocytes (20.5 - 51.1 %) 7 L Monocytes (1.7 - 9.3 %) 12 H Absolute Monocytes (0.10 - 0.60 /CUMM) 0.9 H Absolute Eosinophils (0.0 - 0.7 /CUMM) 0 Absolute Basophils (0.0 - 0.2 /CUMM) 0 Platelet Estimate (ADEQUATE) ADEQUATE Hypochromic-Microcytic 1+ Poikilocytosis 2+ Anisocytosis 1+ Microcytic Cells 1+ Ovalocytes 1+ [place] Cells 1+ Elliptocytes FEW PUBS MCHC (33.0 - 37.0 G/DL) 32.0 L 31.3 L Other Body Source Fld Total RBCs Counted (%) 100 03/26 1236 Chemistry Iron (49 - 181 ug/dL) 20 L TIBC (261 - 462 ug/dL) 166 L Ferritin (17.9 - 464 ng/mL) 131.0 Imaging/Other Studies: No new imaging TTE CONCLUSIONS 1. This was a technically difficult study due to the patient's body habitus. 2. Aortic sclerosis is present with no valvular stenosis or insufficiency. 3. Mitral leaflet thickening is present with fibrosis of the chordal structures and mild systolic prolapse of the posterior leaflet with mild mitral insufficiency 4. a very small pericardial effusion is present which is hemodynamically insignificant. 5. The left ventricle chamber size and systolic function appear normal. There are no significant resting wall motion abnormalities. 6. The right heart structures are not well assessed. Minimal tricuspid insufficiency is present. The right ventricular systolic pressure could not be assessed by this examination. CT IMPRESSION: 1. Numerous cysts effectively replacing the normal hepatic and bilateral renal parenchyma, grossly similar compared to prior. There is a new hyperdense lesion in the right renal fossa which could represent a proteinaceous or hemorrhagic cyst however an underlying mass is not excluded. 2. Interval development of large amount of abdominopelvic ascites. 3. Stable position of a drainage catheter along the right hepatic dome.
--- NOTE | 2017-03-29 13:12 | Incdntl Nt Psy ---
Incidental Note Notation: 03/29/17 @ 1300: We plan on visiting the patient on 03/30/17, for evaluation of depression. If indicated, we may suggest a medication for depression with less dependence on liver metabolism, such as Pristiq, a selective norepinephrine reuptake inhibitor. Due to renal impairment, we have asked pharmacy their suggestion for dosing, and they suggest 50 mg PO every other day, after hemodialysis. Please review this with the nephrology and GI specialists who are consulting, and we will discuss with the team tomorrow, 03/30/17.
[2017-03-29 16:00] VITALS: BP 110/70
--- NOTE | 2017-03-29 17:03 | RADIOLOGY REPORT ---
EXAMINATION: XR PORTABLE CHEST CLINICAL INFORMATION: Pleural effusion. COMPARISON: Chest x-ray 03/24/2017 TECHNIQUE: Portable frontal view of the chest was obtained. 4:42 PM FINDINGS: Lung volume is low. Asymmetric elevation of right diaphragm compared to left. Lungs are clear. No pulmonary vascular congestion. No pleural effusion. Heart size is normal. Cardiomediastinal contours are normal. Right IJ catheter tip at caval atrial junction. IMPRESSION: No pleural effusion. No acute abnormality of the chest. Central port catheter tip at cavoatrial junction.
[2017-03-30] VITALS: BP 102/75
[2017-03-30 05:33] LABS: ABSOLUTE BASOPHIL COUNT 0 /CUMM (0.0-0.2); ABSOLUTE EOSINOPHIL COUNT 0.1 /CUMM (0.0-0.7); ABSOLUTE GRANULOCYTE CT 14.4 /CUMM (1.4-6.5); ABSOLUTE MONOCYTE COUNT 1.2 /CUMM (0.10-0.60); BASOPHIL % 0 % (0.0-2.0); EOSINOPHIL % 0.5 % (0-5); GRANULOCYTE % 86.5 % (42.2-75.2); HEMATOCRIT 32.5 % (42-52); MEAN CORPUSCULAR HGB 24.2 PG (27.0-31.0); MEAN PLATELET VOLUME 11.2 FL (7.4-10.4); PLATELET COUNT 201 /CUMM (130-400); RBC DISTRIBUTION WIDTH 20.5 % (11.5-14.5); RED BLOOD CELL CT 4.17 /CUMM (4.70-6.10); WHITE BLOOD CELL COUNT 16.6 /CUMM (4.8-10.8)
[2017-03-30 08:00] VITALS: BP 91/68
--- NOTE | 2017-03-30 08:15 | PN- Resident CRCU ---
Subjective HPI/CRCU Issues: Catheter-associated Peritonitis SHELBY on CKD on HD Nonsustained SVT - resolved Hyperkalemia - resolved Acute hypoxic respiratory failure - resolved 24 Hour Events: Was seen by psych yesterday, suggested started on desvenlafaxine. Undergoing dialysis today. Patient reports sleeping comfortably overnight. Offers no complaints. Objective Vital Signs & I&O Last 8 Hrs of Vitals and I&O: . Exam General Appearance: well developed/nourished, no apparent distress, alert, awake Head: atraumatic, normal appearance Respiratory: normal breath sounds, chest non-tender, lungs clear Cardiovascular: regular rate/rhythm, systolic murmur Gastrointestinal: soft, non-tender, palpable cystic masses Extremities: no edema Cranial Nerves: normal hearing, normal speech Skin: warm/dry Skin Temp/Moisture Exam: Warm/Dry Sepsis Skin Exam (color): Normal for Ethnicity Current Medications: Current Medications Sig/Lola Start time Last Medication Dose Route Stop Time Status Admin Acetaminophen 325 MG Q4P PRN 03/21 2115 AC 03/26 PO 1707 Albumin Human 25 GM Q8 03/24 2200 AC 03/30 IV 0553 Ceftazidime 1,000 MG Q24H 03/27 0800 AC 03/30 IV 0856 Epoetin Bryan 3,000 UNITS 03/30 1000 AC IV Heparin Sodium 5,000 UNIT Q8 03/28 1444 AC 03/30 (Porcine) SC 0553 Metoprolol Tartrate 6.25 MG BID 03/25 2200 AC 03/29 PO 2158 Morphine Sulfate 2 MG Q4P PRN 03/21 2100 AC 03/30 IV 0905 Multivitamins 1 TAB 1700 03/25 1700 AC 03/28 PO 1708 Omeprazole 40 MG DAILY AC 03/25 1648 AC 03/30 PO 0557 Ondansetron HCl 4 MG ONCE PRN 03/28 0830 AC 03/30 IV 0905 Sevelamer Carbonate 1,600 MG WITH MEALS 03/24 1700 AC 03/30 PO 0856 Trimethobenzamide HCl 200 MG TID PRN 03/27 2015 03/29 IM 1650 Verapamil HCl 180 MG DAILY 03/25 0745 AC 03/29 PO 0934 Impression/Plan Impression/Problem List Impression: Mr. Tijerina is a 66 yo m with a PMH of PKD, Polycystic liver disease, portal HTN , HTN, HLD, umbilical hernia repair, colon ademona, GERD who presented to the ED with NVD with progressively worsened abdominal distention from ascitic fluid. Assessment and Plan: Nonsustained SVT - resolved Patient experienced 2 episodes of SVT with HR up to 180s. He was asymptomatic during both events. During the first event he was administered IV Metoprolol 5 mg. The second event spontaneously resolved and did not require medical management * Continue Metoprolol 6.25 mg BID * Cardiology recommendations appreciated * Will administer Adenosine for any acute events Acute Hypoxic Respiratory Failure s/p Pleurx Cath removal: Patient has a patent connection between abdominal cavity and pleural space 2/2 migrated indwelling catheter, leading to transfer of ascitic fluid to the pleural space. A pig tail was placed. As per Dr. Carson options are to watch and wait to see if spontaneously resolves vs surgical intervention. PA/Lateral CXR on 03/25 for pleural effusion demonstrated no significant pleural effusion or evidence of pneumothorax. ECHO demonstrated Aortic sclerosis is present with no valvular stenosis or insufficiency, a very small pericardial effusion, EF 55-60 % * Continue pigtail catheter drainage connected to water seal * Surgery recommends to leave the catheter in place for now. If the connection does not seal on its own, the patient may require surgery. * TRC/nebs, oxygen supplementation PRN. Currently on room air. * CXR 03/29 showed no pleural effusion or acute abnormality. Catheter-associated Peritonitis: Patient had an indwelling pleural catheter placed in July 2016 for pleural effusion that migrated into the abdominal cavity. Considering that the patient's catheter was never removed it can be a possible source of infection. He had another catheter placed in the R lung that was eventually removed. CT abdomen/ pelvis on admission demonstrated the resolution of his R-side pleural effusion. He gets 1L of ascitic fluid drained from the migrated Pleurx catheter on . Prior to coming to the hospital it was last drained on Tuesday by his visiting nurse. He had a diagnostic and therapeutic paracentesis performed. His ascitic fluid white count was 8222. Repeat paracentesis demonstrated a transudative ascitic fluid with SAAG > 1. His ascitic fluid culture grew GNR and he was started on Ceftazidime. Vancomycin was discontinued. * ID recommendations appreciated. * His white count is rising concerning for a new infection. * Will send for another set of blood cultures * RUQ U/S to assess for the bilary tree and underlying pathology. Possible paracentesis if there is enough fluid to be tapped. * C.diff if he has diarrhea. * Continue Ceftazidime daily. * Continue IV albumin 25gm q8. * Metoclopramide discontinued to avoid EPS * No plans for surgical closure of the diaphargmatic connection. Will await as long as possible. SHELBY on CKD most likely 2/2 dehydration in the setting of his CKD from PKD: Patient is reported to have a baseline Cr of 2-3. His Cr initially eliceo on admission but has trended down. Patient had an Evin cath placed * Continue to monitor renal function * Continue IV Albumin 25 gm q8 * Nephrology recommendations appreciated * Dialysis M/W/F * Continue Epogen with dialysis. Depression: * Patient requested for a psych consult as he feels depressed. * Psych has suggested starting him on DesVenlafaxine 50mg daily. * Renal and GI have approved the use of the medication from their standpoint. However, recommend monitoring of LFTs while on the drug. History of PKD, Polycystic liver disease: Patient reported he had an appt at [facility] in which he was told he wouldn't receive a transplant until the resolution of his ascitic fluid. CT abd/pel demonstrated numerous cysts effectively replacing the normal hepatic and bilateral renal parenchyma Diet: Regular Diet with 2g K restriction. DVT Prophylaxis: ALPS Code Status: Full Problem List: 1. Polycystic liver disease 2. Polycystic kidney disease Pain Ratin Tomorrow's Labs & Rationales: CBC, ICU bundle Plan DVT/Prophylaxis: mechanical
--- NOTE | 2017-03-30 08:29 | PN- CRCU ---
Subjective HPI/Critical Care Issues: The patient is awake and alert. He remains intermittently nauseated despite IV medication. His oral intake is poor. He is currently on dialysis. His blood pressure remains in the 90s to low 100s. He is afebrile and on room air. He offers no respiratory complaints today. Objective Current Medications: Current Medications Sig/Lola Start time Last Medication Dose Route Stop Time Status Admin Acetaminophen 325 MG Q4P PRN 03/21 2115 AC 03/26 PO 1707 Albumin Human 25 GM Q8 03/24 2200 AC 03/30 IV 0553 Ceftazidime 1,000 MG Q24H 03/27 0800 AC 03/29 IV 0807 Epoetin Bryan 3,000 UNITS 03/30 1000 AC IV Heparin Sodium 5,000 UNIT Q8 03/28 1444 AC 03/30 (Porcine) SC 0553 Metoprolol Tartrate 6.25 MG BID 03/25 2200 AC 03/29 PO 2158 Morphine Sulfate 2 MG Q4P PRN 03/21 2100 AC 03/30 IV 0034 Multivitamins 1 TAB 1700 03/25 1700 AC 03/28 PO 1708 Omeprazole 40 MG DAILY AC 03/25 1648 AC 03/30 PO 0557 Ondansetron HCl 4 MG ONCE PRN 03/28 0830 AC 03/28 IV 0833 Sevelamer Carbonate 1,600 MG WITH MEALS 03/24 1700 AC 03/29 PO 1131 Trimethobenzamide HCl 200 MG TID PRN 03/27 2015 AC 03/29 IM 1650 Verapamil HCl 180 MG DAILY 03/25 0745 AC 03/29 PO 0934 Vital Signs & I&O Last 24 Hrs of Vitals and I&O: Vital Signs Date Time Temp Pulse Resp B/P B/P Pulse O2 O2 Flow FiO2 Mean Ox Delivery Rate 03/30 0358 97 Room Air 03/30 0000 98.0 90 17 102/75 97 Room Air 03/30 0000 97 Room Air 03/29 2158 96 20 100/78 03/29 1600 98.6 90 19 110/70 97 Room Air 03/29 1057 98 110/70 03/29 0934 96 106/64 Intake & Output 03/30 1600 03/30 0800 03/30 0000 Intake Total 460 Output Total Balance 460 Intake, IV 100 Intake, Oral 360 Patient 133 lb Weight Weight Standing Scale Measurement Method Exam General Appearance: no apparent distress, alert, awake, anxious Head: atraumatic, normal appearance Neck: supple Respiratory: no respiratory distress, quiet respiration, lungs clear Cardiovascular: regular rate/rhythm Abdomen: distended but soft, bowel sounds present Extremities: no edema Skin: intact, normal color, warm/dry Results Last 24 Hrs of Lab Results: Laboratory Tests 03/30/17 0505: Anion Gap 26 H, Estimated GFR 12 L, Glucose 103 H, Calcium 9.3, Phosphorus 4.8 H, Magnesium 2.0, Total Bilirubin 1.3, AST 21, ALT 28, Albumin 4.5, CBC w Diff MAN DIFF ORDERED, RBC 4.17 L, MCV 78.0 L, MCH 24.2 L, RDW 20.5 H, MPV 11.2 H, Gran % 86.5 H, Lymphocytes % 5.8 L, Monocytes % 7.2, Eosinophils % 0.5, Basophils % 0, Absolute Granulocytes 14.4 H, Segmented Neutrophils 89 H, Absolute Lymphocytes 1.0 L, Lymphocytes 3 L, Monocytes 7, Absolute Monocytes 1.2 H, Eosinophils 1, Absolute Eosinophils 0.1, Absolute Basophils 0, Nucleated RBCs 2 H, Platelet Estimate ADEQUATE, Polychromasia 1+, Hypochromic-Microcytic 1+, Poikilocytosis 1+, Anisocytosis 1+, Microcytic Cells 1+, Target Cells RARE, Ovalocytes 1+, Elliptocytes FEW, PUBS MCHC 31.0 L, Fld Total RBCs Counted 100 Diagnostic Data CXR Findings: No pleural effusion. No acute abnormality of the chest. Central port catheter tip at cavoatrial junction. Impression/Plan Impression/Plan Impression/Plan: 1. Increasing leukocytosis, despite ceftazidime for Escherichia coli and Pseudomonas peritonitis. 2. SHELBY superimposed on severe polycystic renal disease with liver complications , and intense ascites. Now on hemodialysis. 3. Resolved respiratory failure. 4. Recent diarrhea, now improved. 5. Peritoneal pulmonary fistula, improved status post chest tube placement. Recommendations: * We will order right upper quadrant ultrasound at the bedside for this morning. * Continue chest tube management as per CT surgery. * Continue Ceftazidime and monitoring of cultures. * Stool for C. difficile if any evidence of diarrhea. * Encourage oral intake. * Continue Neupogen and Renvela as per nephrology. * Morphine as needed for discomfort. * Out of bed to chair. * DVT prophylaxis at all times. * Continue all supportive care. * Downgrade to telemetry. * Discussed plan of care with housestaff, patient and at bedside. I asked them to contact me should the patient's condition change or deteriorate.
--- NOTE | 2017-03-30 08:48 | Transfer of Care Summary ---
Hospital Course Course Hospital Course: Reason for ICU admission: Transferred from for Sepsis HPI: Mr. Tijerina is a 66 yo m with a PMH of PKD, Polycystic liver disease, portal HTN, HTN, HLD, umbilical hernia repair, colon ademona, GERD who presented to the ED with NVD with progressively worsened abdominal distention from ascitic fluid. Interval events: Mr. Tijerina was in the ICU initially as a GM hold but subsequently transferred to the critical care team for further management of Sepsis. Patient is followed by Dr. Carson as an outpatient for his pleural effusion in which a Pluerx catheter was placed that somehow migrated to his abdominal cavity. On admission patient had a paracentesis done that reported an elevated ascitic white count. Initally it was suspected to be due to SBP and placed on Ceftriaxone. He also received 1 dose of Vancomycin. ID was consulted and recommended to change his antibiotic to Ceftazidime for suspicion of catheter-associated peritonitis for the migrated Pleurx catheter. His migrated Pleurx catheter was subsequently removed by Dr. Carson. CXR demonstrated a new moderate to large right pleural effusion and a pigtail was placed. Patient then developed respiratory distress after catheter removal and was given temporary oxygen supplementation. During his stay, he experienced 2 episodes of SVT with HR up to 180s. He was asymptomatic during both events. During the first event he was administered IV Metoprolol 5 mg. The second event spontaneously resolved and did not require medical management. Cardiology was informed. Metoprolol was added to his current regimen. As per Nephrology recommendations a tunnel catheter to RIJ was placed for initiation of hemodialysis. Psych was consulted after patient reported he now feels depressed and he was started on DesVenlafaxine. Towards the end of his ICU stay his pigtail catheter from the chest cavity was removed as it stopped draining fluid and it was believed the connection through his diaphargm has closed on its own. Mechanical ventilation: None NIPPV: No Antibiotics: None Catheters/Lines: Tunneled RIJ hemodialysis catheter, PIV Nutrition: 2g K restriction DVT prophylaxis: sc Heparin Code status: Full Assessment/Plan: Assessment: Catheter-associated Peritonitis SHELBY on CKD on HD Nonsustained SVT - resolved Hyperkalemia - resolved Acute hypoxic respiratory failure - resolved Hypotension: - currently resolved. Plan * Continue to monitor renal function * Continue IV Albumin 25 gm q8 * Dialysis M/W/F * Continue Epogen with dialysis. * monitoring of LFTs while on DesVenlafaxine 50mg daily * Avoid Metoclopramide to avoid EPS * Continue monitoring blood pressure. Currently refuses for a central line placement for administeration of pressors. His blood pressure normally responds well to 500cc of NS bolus. * His beta rose will have to be restarted once his blood pressure is more stable for NSVT. * Follow up most recent ascitic fluid studies. * He will need weekly paracentesis. . * Consider 50gm albumin before and after each paracentesis. * Further recommendations and goals of care per Nephro.
--- NOTE | 2017-03-30 10:02 | PN- Infect Dx ---
Subjective Subjective: Afebrile without complaints. He had 4 bowel movements recorded yesterday, 2 formed and 2 soft but he denies diarrhea and has no abdominal discomfort. He does still reports nausea. He has no shortness of breath. Objective Last 24 Hrs of Vital Signs/I&O Vital Signs Date Time Temp Pulse Resp B/P B/P Pulse O2 O2 Flow FiO2 Mean Ox Delivery Rate 03/30 0857 98 90/73 03/30 0857 98 9003/30 0358 97 Room Air 03/30 0000 98.0 90 102/75 97 Room Air 03/30 0000 97 Room Air 03/29 2158 96 20 100/78 03/29 1600 98.6 90 19 110/70 97 Room Air 03/29 1057 98 110/70 Intake & Output 03/30 1600 03/30 0800 03/30 0000 Intake Total 50 460 Output Total 0 Balance 50 460 Intake, IV 0 100 Intake, Oral 50 360 Number 0 Bowel Movements Output, Chest 0 Tube Drainage Output, Urine 0 Patient 133 lb Weight Weight Standing Scale Measurement Method Physical Exam Other Physical Findings: He appears comfortable in no acute distress, currently undergoing hemodialysis Neck dialysis catheter in the right IJ with no inflammation at the site Lungs are clear; pigtail catheter in the right chest with no drainage; site without inflammation Heart regular rhythm with no murmur Abdomen decreased distention, nontender with positive bowel sounds Extremities no cyanosis, clubbing or edema Results Last 24 Hours of Lab Results: Laboratory Tests 03/30 0505 Chemistry Sodium (137 - 145 mmol/L) 144 Potassium (3.5 - 5.1 mmol/L) 4.8 Chloride (98 - 107 mmol/L) 102 Carbon Dioxide (22 - 30 mmol/L) 17 L Anion Gap (5 - 16) 26 H BUN (9 - 20 mg/dL) 83 H Creatinine (0.7 - 1.2 mg/dL) 5.0 H Estimated GFR (>60 ml/min) 12 L Glucose (65 - 99 mg/dL) 103 H Calcium (8.4 - 10.2 mg/dL) 9.3 Phosphorus (2.5 - 4.5 mg/dL) 4.8 H Magnesium (1.6 - 2.3 mg/dL) 2.0 Total Bilirubin (0.2 - 1.3 mg/dL) 1.3 AST (17 - 59 U/L) 21 ALT (21 - 72 U/L) 28 Albumin (3.5 - 5.0 g/dL) 4.5 Hematology CBC w Diff MAN DIFF ORDERED WBC (4.8 - 10.8 /CUMM) 16.6 H RBC (4.70 - 6.10 /CUMM) 4.17 L Hgb (14.0 - 18.0 G/DL) 10.1 L Hct (42 - 52 %) 32.5 L MCV (80.0 - 94.0 FL) 78.0 L MCH (27.0 - 31.0 PG) 24.2 L RDW (11.5 - 14.5 %) 20.5 H Plt Count (130 - 400 /CUMM) 201 MPV (7.4 - 10.4 FL) 11.2 H Gran % (42.2 - 75.2 %) 86.5 H Lymphocytes % (20.5 - 51.1 %) 5.8 L Monocytes % (1.7 - 9.3 %) 7.2 Eosinophils % (0 - 5 %) 0.5 Basophils % (0.0 - 2.0 %) 0 Absolute Granulocytes (1.4 - 6.5 /CUMM) 14.4 H Segmented Neutrophils (42.2 - 75.2 %) 89 H Absolute Lymphocytes (1.2 - 3.4 /CUMM) 1.0 L Lymphocytes (20.5 - 51.1 %) 3 L Monocytes (1.7 - 9.3 %) 7 Absolute Monocytes (0.10 - 0.60 /CUMM) 1.2 H Eosinophils (0 - 5.0 %) 1 Absolute Eosinophils (0.0 - 0.7 /CUMM) 0.1 Absolute Basophils (0.0 - 0.2 /CUMM) 0 Nucleated RBCs (0.0 - 0.0 /100WBC) 2 H Platelet Estimate (ADEQUATE) ADEQUATE Polychromasia 1+ Hypochromic-Microcytic 1+ Poikilocytosis 1+ Anisocytosis 1+ Microcytic Cells 1+ Target Cells RARE Ovalocytes 1+ Elliptocytes FEW PUBS MCHC (33.0 - 37.0 G/DL) 31.0 L Other Body Source Fld Total RBCs Counted (%) 100 Last 24 Hours of Clarke Results: No new cultures Recent Imaging Studies: Chest x-ray March 29 negative Assessment/Plan Impression: Clinically stable, with temperatures remaining normal on Ceftazidime for a gram- negative (Escherichia coli and Pseudomonas) peritonitis secondary to a Pleurex catheter, which had migrated into the peritoneal cavity, status post its removal in the OR 8 days ago, with placement of a pigtail catheter in the right chest because of the development of a large right pleural effusion secondary to gushing of fluid from the peritoneal cavity to the pleural cavity, with minimal output over the last several days. His white blood cell count continues to increase, raising concern for a new infectious process, though he has no obvious source. He has continued on dialysis for worsening renal failure, possibly secondary to sepsis superimposed on his underlying polycystic kidney disease ( and liver) disease. Suggestion: 1. Abdominal ultrasound to evaluate the biliary tree and assess for ascites 2. Would repeat paracentesis if he has sufficient fluid to tap 3. Blood cultures 2 4. Stool for C. 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 Continue Ceftazidime
--- NOTE | 2017-03-30 11:34 | Cons- Psychiatry ---
Psychiatric Consult Date of Consult: 03/30/17 Reason for Consult: "Family feels patient is depressed amd may benefit from eval" History of Present Illness: 66 M presented to the ED on 03/21/17 with CC of n/v/d and diffuse abdominal pain. He was admitted for decompensated cirrhosis and SHELBY. He has advanced polycystic kidney disease, portal hypertension and ascites, and has recently started on hemodialysis. He is being followed by nephrology, cardiology, GI, pulmonary and infectious disease. Allergies: Coded Allergies: NO KNOWN ALLERGIES (02/26/15) Current Medications: Current Medications Sig/Lola Start time Last Medication Dose Route Stop Time Status Admin Acetaminophen 325 MG Q4P PRN 03/21 2115 AC 03/26 PO 1707 Albumin Human 25 GM Q8 03/24 22003/30 IV 0553 Ceftazidime 1,000 MG Q24H 03/27 0800 AC 03/30 IV 0856 Epoetin Bryan 3,000 UNITS 03/30 1000 CAN IV Epoetin Bryan 3,000 UNIT 03/30 1000 AC IV Heparin Sodium 5,000 UNIT Q8 03/28 1444 AC 03/30 (Porcine) SC 0553 Metoprolol Tartrate 6.25 MG BID 03/25 220 AC 03/29 PO 2158 Morphine Sulfate 2 MG Q4P PRN 03/21 2100 03/30 IV 0905 Multivitamins 1 TAB 1700 03/25 1700 AC 03/28 PO 1708 Omeprazole 40 MG DAILY AC 03/25 1648 03/30 PO 0557 Ondansetron HCl 4 MG ONCE PRN 03/28 0830 03/30 IV 0905 Sevelamer Carbonate 1,600 MG WITH MEALS 03/24 170 AC 03/30 PO 0856 Trimethobenzamide HCl 200 MG TID PRN 03/27 2015 03/29 IM 1650 Verapamil HCl 180 MG DAILY 03/25 0745 AC 03/29 PO 0934 Past History Past Medical History Neurological: Sciatica EENT: NONE Cardiovascular: hypertension, hyperlipidemia Respiratory: NONE Gastrointestinal: INGUINAL HERNIA Hepatic: POLYCYSTIC LIVER ASCITES PLEUREX CATH DRAIN TO R ABD Ascites Renal: POLYCYSTIC KIDNEY Musculoskeletal: NONE Psychiatric: Depression treated with talk therapy in the past, which he did not find helpful. 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 Psychiatric Treatment History Psych Treatment Psychiatric Treatment Yes Inpatient Treatment No Outpatient Treatment Yes Location of Treatment Private office Reason for Treatment Depression Dates of Treatment Remote Response to Treatment Patient denies improvement. Diagnosis: Depressive d/o NOS Risk Factors: age (under 24/over 65), chronic/serious med cond., male Substance Use/Abuse History Drug Use/Abuse Substances Used/Abused No Substance Abuse Treatment Substance Abuse Treatment Past Substance Abuse [place] No Assessment/Plan Mental Status Orientation: Person, Place, Situation Affect: Constricted, Hopeless, Sad Speech: Mumbled, Soft Neuro-vegetative: Appetite Decreased, Helpless Lab Results: Laboratory Tests 03/30 0505 Chemistry Sodium (137 - 145 mmol/L) 144 Potassium (3.5 - 5.1 mmol/L) 4.8 Chloride (98 - 107 mmol/L) 102 Carbon Dioxide (22 - 30 mmol/L) 17 L Anion Gap (5 - 16) 26 H BUN (9 - 20 mg/dL) 83 H Creatinine (0.7 - 1.2 mg/dL) 5.0 H Estimated GFR (>60 ml/min) 12 L Glucose (65 - 99 mg/dL) 103 H Calcium (8.4 - 10.2 mg/dL) 9.3 Phosphorus (2.5 - 4.5 mg/dL) 4.8 H Magnesium (1.6 - 2.3 mg/dL) 2.0 Total Bilirubin (0.2 - 1.3 mg/dL) 1.3 AST (17 - 59 U/L) 21 ALT (21 - 72 U/L) 28 Albumin (3.5 - 5.0 g/dL) 4.5 Hematology CBC w Diff MAN DIFF ORDERED WBC (4.8 - 10.8 /CUMM) 16.6 H RBC (4.70 - 6.10 /CUMM) 4.17 L Hgb (14.0 - 18.0 G/DL) 10.1 L Hct (42 - 52 %) 32.5 L MCV (80.0 - 94.0 FL) 78.0 L MCH (27.0 - 31.0 PG) 24.2 L RDW (11.5 - 14.5 %) 20.5 H Plt Count (130 - 400 /CUMM) 201 MPV (7.4 - 10.4 FL) 11.2 H Gran % (42.2 - 75.2 %) 86.5 H Lymphocytes % (20.5 - 51.1 %) 5.8 L Monocytes % (1.7 - 9.3 %) 7.2 Eosinophils % (0 - 5 %) 0.5 Basophils % (0.0 - 2.0 %) 0 Absolute Granulocytes (1.4 - 6.5 /CUMM) 14.4 H Segmented Neutrophils (42.2 - 75.2 %) 89 H Absolute Lymphocytes (1.2 - 3.4 /CUMM) 1.0 L Lymphocytes (20.5 - 51.1 %) 3 L Monocytes (1.7 - 9.3 %) 7 Absolute Monocytes (0.10 - 0.60 /CUMM) 1.2 H Eosinophils (0 - 5.0 %) 1 Absolute Eosinophils (0.0 - 0.7 /CUMM) 0.1 Absolute Basophils (0.0 - 0.2 /CUMM) 0 Nucleated RBCs (0.0 - 0.0 /100WBC) 2 H Platelet Estimate (ADEQUATE) ADEQUATE Polychromasia 1+ Hypochromic-Microcytic 1+ Poikilocytosis 1+ Anisocytosis 1+ Microcytic Cells 1+ Target Cells RARE Ovalocytes 1+ Elliptocytes FEW PUBS MCHC (33.0 - 37.0 G/DL) 31.0 L Other Body Source Fld Total RBCs Counted (%) 100 Provisional Treatment Plan: 1. Consider Pristiq/desvenlafaxine, a selective norepinephrine reuptake inhibitor, for depression. a. Due to renal impairment, we have asked pharmacy their suggestion for dosing, and they suggest 50 mg PO every other day, after hemodialysis. b. Please request comment on the use of this medication from the nephrology and GI specialists, who are consulting, before initiation. c. The patient is considering starting this medication, and would like to think about it. He is concerned that his nausea will interfere with taking the medication. d. R/B/SE reviewed with the patient. UpToDate monograph is in the chart. 2. We will make an appointment for outpatient psychiatry for talk therapy at a practice he approves of, when the patient's discharge plan is known. We will continue to follow along.
--- NOTE | 2017-03-30 12:46 | PN- Nephrology ---
Assessment/Plan Assessment: SHELBY - Likely 2/2 ATN in the setting of volume depletion while on RAAS inhibition in addition to bacterial peritonitis. Currently dialysis dependent. Stage IV CKD - 2/2 polycystic kidney disease. Baseline SCr approx 2.5-3.0. Will need to monitor for recovery. Not yet ESRD. Peritonitis - Pseudomonas and E coli on fluid culture. On abx and pleurex catheter has been removed although requires drainage of fluid in chest. Blood cultures have been negative. WBC rising again - ?reinfected fluid/catheter. Could probably sample fluid from chest tube if it really is communicating with peritoneum. Nausea/vomitting - DDx includes uremia for which he has been started on dialysis. Improving. Anemia - Some degree of iron deficiency although given degree of anemia and in the setting of active infection with rising WBC, would plan for just Epogen. Suggestion: -HD today - no clear need for fluid removal -Start Epogen 3000U TIW with HD (MWF) -Abx as per ID -?Sample fluid from chest tube for cell count/culture Please call [phone] with ?'s Subjective Subjective: Pt seen and examined on dialysis No UOP Feeling slightly less nauseated WBC rising; afebrile; no more positive cultures Objective Vital Signs and I&Os Vital Signs Date Time Temp Pulse Resp B/P B/P Pulse O2 O2 Flow FiO2 Mean Ox Delivery Rate 03/30 0857 98 90/03/30 0857 98 9073 03/30 0358 97 Room Air 03/30 0000 98.0 90 17 102/75 97 Room Air 03/30 0000 97 Room Air 03/29 2158 96 20 100/78 03/29 1600 98.6 90 19 110/70 97 Room Air Intake & Output 03/30 1600 03/30 0400 03/29 1600 03/29 0400 03/28 1600 03/28 0400 Intake Total 50 460 1025 340 685 150 Output Total 0 1470 70 Balance 50 460 1025 340 -785 80 Intake, Blood 100 100 Product Intake, IV 0 100 130 235 100 Intake, Oral 50 360 795 240 450 50 Number 0 4 0 3 Bowel Movements Output, Chest 0 10 10 Tube Drainage Output, 1400 Dialysate Output, Urine 0 60 60 Patient 133 lb 148 lb 132 lb Weight Weight Standing Scale Chair scale Chair scale Measurement Method Physical Exam: Gen - cachectic, chronically ill appearing HEENT - supple CV - RRR, no m/r/g Chest - clear, no w/r/r Abd - distended, nontender Ext - no edema Neuro - AOX3, grossly nonfocal Access - CVC Current Medications: Current Medications Sig/Lola Start time Last Medication Dose Route Stop Time Status Admin Acetaminophen 325 MG Q4P PRN 03/21 2115 AC 03/26 PO 1707 Albumin Human 25 GM Q8 03/24 2200 AC 03/30 IV 0553 Ceftazidime 1,000 MG Q24H 03/27 0800 AC 03/30 IV 0856 Desvenlafaxine 50 MG MoWeFr@1300 03/30 1300 AC Succinate PO Epoetin Bryan 3,000 UNITS 03/30 1000 CAN IV Epoetin Bryan 3,000 UNIT 03/30 1000 AC 03/30 IV 1035 Heparin Sodium 5,000 UNIT Q8 03/28 1444 AC 03/30 (Porcine) SC 0553 Metoprolol Tartrate 6.25 MG BID 03/25 2200 AC 03/29 PO 2158 Morphine Sulfate 2 MG Q4P PRN 03/21 2100 AC 03/30 IV 0905 Multivitamins 1 TAB 1700 03/25 1700 AC 03/28 PO 1708 Omeprazole 40 MG DAILY AC 03/25 1648 AC 03/30 PO 0557 Ondansetron HCl 4 MG Q8P PRN 03/30 1245 UNVr IV Ondansetron HCl 4 MG ONCE PRN 03/28 0830 AC 03/30 IV 0905 Sevelamer Carbonate 1,600 MG WITH MEALS 03/24 1700 AC 03/30 PO 0856 Trimethobenzamide HCl 200 MG TID PRN 03/27 2015 DC 03/29 IM 1650 Verapamil HCl 180 MG DAILY 03/25 0745 AC 03/29 PO 0934 Results Pertinent Lab Results: Laboratory Tests 03/30 03/29 0505 0400 Chemistry Sodium (137 - 145 mmol/L) 144 141 Potassium (3.5 - 5.1 mmol/L) 4.8 4.9 Chloride (98 - 107 mmol/L) 102 101 Carbon Dioxide (22 - 30 mmol/L) 17 L 20 L Anion Gap (5 - 16) 26 H 20 H BUN (9 - 20 mg/dL) 83 H 73 H Creatinine (0.7 - 1.2 mg/dL) 5.0 H 4.2 H Estimated GFR (>60 ml/min) 12 L 14 L Glucose (65 - 99 mg/dL) 103 H 118 H Calcium (8.4 - 10.2 mg/dL) 9.3 9.0 Phosphorus (2.5 - 4.5 mg/dL) 4.8 H 4.2 Magnesium (1.6 - 2.3 mg/dL) 2.0 1.9 Total Bilirubin (0.2 - 1.3 mg/dL) 1.3 1.4 H AST (17 - 59 U/L) 21 21 ALT (21 - 72 U/L) 28 22 Albumin (3.5 - 5.0 g/dL) 4.5 3.9 Hematology CBC w Diff MAN DIFF ORDERED NO MAN DIFF REQ WBC (4.8 - 10.8 /CUMM) 16.6 H 13.7 H RBC (4.70 - 6.10 /CUMM) 4.17 L 3.68 L Hgb (14.0 - 18.0 G/DL) 10.1 L 9.3 L Hct (42 - 52 %) 32.5 L 28.5 L MCV (80.0 - 94.0 FL) 78.0 L 77.3 L MCH (27.0 - 31.0 PG) 24.2 L 25.2 L RDW (11.5 - 14.5 %) 20.5 H 20.6 H Plt Count (130 - 400 /CUMM) 201 189 MPV (7.4 - 10.4 FL) 11.2 H 11.3 H Gran % (42.2 - 75.2 %) 86.5 H 89.4 H Lymphocytes % (20.5 - 51.1 %) 5.8 L 4.2 L Monocytes % (1.7 - 9.3 %) 7.2 6.1 Eosinophils % (0 - 5 %) 0.5 0.3 Basophils % (0.0 - 2.0 %) 0 0 Absolute Granulocytes (1.4 - 6.5 /CUMM) 14.4 H 12.3 H Segmented Neutrophils (42.2 - 75.2 %) 89 H Absolute Lymphocytes (1.2 - 3.4 /CUMM) 1.0 L 0.6 L Lymphocytes (20.5 - 51.1 %) 3 L Monocytes (1.7 - 9.3 %) 7 Absolute Monocytes (0.10 - 0.60 /CUMM) 1.2 H 0.8 H Eosinophils (0 - 5.0 %) 1 Absolute Eosinophils (0.0 - 0.7 /CUMM) 0.1 0 Absolute Basophils (0.0 - 0.2 /CUMM) 0 0 Nucleated RBCs (0.0 - 0.0 /100WBC) 2 H Platelet Estimate (ADEQUATE) ADEQUATE Polychromasia 1+ Hypochromic-Microcytic 1+ Poikilocytosis 1+ Anisocytosis 1+ Microcytic Cells 1+ Target Cells RARE Ovalocytes 1+ Elliptocytes FEW PUBS MCHC (33.0 - 37.0 G/DL) 31.0 L 32.6 L Other Body Source Fld Total RBCs Counted (%) 100 03/28 03/28 0614 0411 Chemistry Sodium (137 - 145 mmol/L) 141 Potassium (3.5 - 5.1 mmol/L) 4.8 Chloride (98 - 107 mmol/L) 105 Carbon Dioxide (22 - 30 mmol/L) 14 L Anion Gap (5 - 16) 22 H BUN (9 - 20 mg/dL) 90 H Creatinine (0.7 - 1.2 mg/dL) 5.0 H Estimated GFR (>60 ml/min) 12 L Glucose (65 - 99 mg/dL) 83 Calcium (8.4 - 10.2 mg/dL) 8.4 Phosphorus (2.5 - 4.5 mg/dL) 6.2 H Magnesium (1.6 - 2.3 mg/dL) 2.0 Total Bilirubin (0.2 - 1.3 mg/dL) 1.1 Direct Bilirubin (< 0.4 mg/dL) 0.9 H AST (17 - 59 U/L) 16 L ALT (21 - 72 U/L) 28 Alkaline Phosphatase (< 127 U/L) 132 H Total Protein (6.3 - 8.2 g/dL) 5.6 L Albumin (3.5 - 5.0 g/dL) 3.4 L Hematology CBC w Diff MAN DIFF ORDERED WBC (4.8 - 10.8 /CUMM) 11.3 H RBC (4.70 - 6.10 /CUMM) 3.56 L Hgb (14.0 - 18.0 G/DL) 8.8 L Hct (42 - 52 %) 27.5 L MCV (80.0 - 94.0 FL) 77.2 L MCH (27.0 - 31.0 PG) 24.7 L RDW (11.5 - 14.5 %) 19.9 H Plt Count (130 - 400 /CUMM) 182 MPV (7.4 - 10.4 FL) 10.3 Segmented Neutrophils (42.2 - 75.2 %) 81 H Lymphocytes (20.5 - 51.1 %) 7 L Monocytes (1.7 - 9.3 %) 12 H Platelet Estimate (ADEQUATE) ADEQUATE Hypochromic-Microcytic 1+ Poikilocytosis 2+ Anisocytosis 1+ Microcytic Cells 1+ Ovalocytes 1+ Ahsan Cells 1+ Elliptocytes FEW PUBS MCHC (33.0 - 37.0 G/DL) 32.0 L Other Body Source Fld Total RBCs Counted (%) 100 Imaging/Other Studies: EXAM TYPE: RAD - XRY-PORTABLE CHEST XRAY EXAMINATION: XR PORTABLE CHEST CLINICAL INFORMATION: Pleural effusion. COMPARISON: Chest x-ray 03/24/2017 TECHNIQUE: Portable frontal view of the chest was obtained. 4:42 PM FINDINGS: Lung volume is low. Asymmetric elevation of right diaphragm compared to left. Lungs are clear. No pulmonary vascular congestion. No pleural effusion. Heart size is normal. Cardiomediastinal contours are normal. Right IJ catheter tip at caval atrial junction. IMPRESSION: No pleural effusion. No acute abnormality of the chest. Central port catheter tip at cavoatrial junction.
--- NOTE | 2017-03-30 14:10 | PN- Thoracic Surgery ---
Subjective Subjective: Main complaint remains one of nausea. His respiratory status is stable. He is on room air Objective Vital Signs and I&Os Vital Signs Date Time Temp Pulse Resp B/P B/P Pulse O2 O2 Flow FiO2 Mean Ox Delivery Rate 03/30 0857 98 90/73 03/30 0857 98 9073 03/30 0358 97 Room Air 03/30 0000 98.0 90 17 102/75 97 Room Air 03/30 0000 97 Room Air 03/29 2158 96 20 100/78 03/29 1600 98.6 90 19 110/70 97 Room Air Intake & Output 03/30 1600 03/30 0800 03/30 0000 03/29 1600 03/29 0800 03/29 0000 Intake Total 50 460 850 175 340 Output Total 0 Balance 50 460 850 175 340 Intake, Blood 100 100 Product Intake, IV 0 100 130 Intake, Oral 50 360 720 75 240 Number 0 1 3 Bowel Movements Output, Chest 0 Tube Drainage Output, Urine 0 Patient 133 lb 148 lb Weight Weight Standing Scale Chair scale Measurement Method Physical Exam: Breath sounds clear bilaterally. Small amount of clear serous drainage and chest tube tubing. Current Medications: Current Medications Sig/Lola Start time Last Medication Dose Route Stop Time Status Admin Acetaminophen 325 MG Q4P PRN 03/21 21103/26 PO 1707 Albumin Human 25 GM Q8 03/24 IV 0553 Ceftazidime 1,000 MG Q24H 03/27 0800 AC 03/30 IV 0856 Desvenlafaxine 50 MG MoWeFr@1300 03/30 1300 AC Succinate PO Epoetin Bryan 3,000 UNITS 03/30 1000 CAN IV Epoetin Bryan 3,000 UNIT 03/30 1000 AC 03/30 IV 1035 Heparin Sodium 5,000 UNIT Q8 03/28 1444 AC 03/30 (Porcine) SC 0553 Metoprolol Tartrate 6.25 MG BID 03/25 2199 AC 03/29 PO 2158 Morphine Sulfate 2 MG Q4P PRN 03/21 2100 AC 03/30 IV 0905 Multivitamins 1 TAB 1700 03/25 1700 AC 03/28 PO 1708 Omeprazole 40 MG DAILY AC 03/25 1648 AC 03/30 PO 0557 Ondansetron HCl 4 MG Q6-PRN PRN 03/30 1300 AC IV Ondansetron HCl 4 MG Q8P PRN 03/30 1245 DC IV Ondansetron HCl 4 MG ONCE PRN 03/28 0830 DC 03/30 IV 0905 Sevelamer Carbonate 1,600 MG WITH MEALS 03/24 1700 AC 03/30 PO 0856 Trimethobenzamide HCl 200 MG TID PRN 03/27 2014 DC 03/29 IM 1650 Verapamil HCl 180 MG DAILY 03/25 0745 AC 03/29 PO 0934 Results Last 48 Hours of Labs: Laboratory Tests 03/30 03/29 0505 0400 Chemistry Sodium (137 - 145 mmol/L) 144 141 Potassium (3.5 - 5.1 mmol/L) 4.8 4.9 Chloride (98 - 107 mmol/L) 102 101 Carbon Dioxide (22 - 30 mmol/L) 17 L 20 L Anion Gap (5 - 16) 26 H 20 H BUN (9 - 20 mg/dL) 83 H 73 H Creatinine (0.7 - 1.2 mg/dL) 5.0 H 4.2 H Estimated GFR (>60 ml/min) 12 L 14 L Glucose (65 - 99 mg/dL) 103 H 118 H Calcium (8.4 - 10.2 mg/dL) 9.3 9.0 Phosphorus (2.5 - 4.5 mg/dL) 4.8 H 4.2 Magnesium (1.6 - 2.3 mg/dL) 2.0 1.9 Total Bilirubin (0.2 - 1.3 mg/dL) 1.3 1.4 H AST (17 - 59 U/L) 21 21 ALT (21 - 72 U/L) 28 22 Albumin (3.5 - 5.0 g/dL) 4.5 3.9 Hematology CBC w Diff MAN DIFF ORDERED NO MAN DIFF REQ WBC (4.8 - 10.8 /CUMM) 16.6 H 13.7 H RBC (4.70 - 6.10 /CUMM) 4.17 L 3.68 L Hgb (14.0 - 18.0 G/DL) 10.1 L 9.3 L Hct (42 - 52 %) 32.5 L 28.5 L MCV (80.0 - 94.0 FL) 78.0 L 77.3 L MCH (27.0 - 31.0 PG) 24.2 L 25.2 L RDW (11.5 - 14.5 %) 20.5 H 20.6 H Plt Count (130 - 400 /CUMM) 201 189 MPV (7.4 - 10.4 FL) 11.2 H 11.3 H Gran % (42.2 - 75.2 %) 86.5 H 89.4 H Lymphocytes % (20.5 - 51.1 %) 5.8 L 4.2 L Monocytes % (1.7 - 9.3 %) 7.2 6.1 Eosinophils % (0 - 5 %) 0.5 0.3 Basophils % (0.0 - 2.0 %) 0 0 Absolute Granulocytes (1.4 - 6.5 /CUMM) 14.4 H 12.3 H Segmented Neutrophils (42.2 - 75.2 %) 89 H Absolute Lymphocytes (1.2 - 3.4 /CUMM) 1.0 L 0.6 L Lymphocytes (20.5 - 51.1 %) 3 L Monocytes (1.7 - 9.3 %) 7 Absolute Monocytes (0.10 - 0.60 /CUMM) 1.2 H 0.8 H Eosinophils (0 - 5.0 %) 1 Absolute Eosinophils (0.0 - 0.7 /CUMM) 0.1 0 Absolute Basophils (0.0 - 0.2 /CUMM) 0 0 Nucleated RBCs (0.0 - 0.0 /100WBC) 2 H Platelet Estimate (ADEQUATE) ADEQUATE Polychromasia 1+ Hypochromic-Microcytic 1+ Poikilocytosis 1+ Anisocytosis 1+ Microcytic Cells 1+ Target Cells RARE Ovalocytes 1+ Elliptocytes FEW PUBS MCHC (33.0 - 37.0 G/DL) 31.0 L 32.6 L Other Body Source Fld Total RBCs Counted (%) 100 Recent Imaging Studies: Chest x-ray stable with no pleural effusion. Assessment/Plan Assessment/Plan On dialysis with a decompressed abdomen and now minimal to no chest tube drainage. We will continue as is with the catheter in place.
--- NOTE | 2017-03-30 15:29 | PN- Cardiology ---
Subjective Subjective: Stable CV status; nauseous on dialysis Objective Vital Signs and I&Os Vital Signs Date Time Temp Pulse Resp B/P B/P Pulse O2 O2 Flow FiO2 Mean Ox Delivery Rate 03/30 0857 98 90/73 03/30 0857 98 90/73 03/30 0358 97 Room Air 03/30 0000 98.0 90 17 102/75 97 Room Air 03/30 0000 97 Room Air 03/29 2158 96 20 100/78 03/29 1600 98.6 90 19 110/70 97 Room Air Intake & Output 03/30 1600 03/30 0800 03/30 0000 03/29 1600 03/29 0800 03/29 0000 Intake Total 50 460 850 175 340 Output Total 0 Balance 50 460 850 175 340 Intake, Blood 100 100 Product Intake, IV 0 100 130 Intake, Oral 50 360 720 75 240 Number 0 1 3 Bowel Movements Output, Chest 0 Tube Drainage Output, Urine 0 Patient 133 lb 148 lb Weight Weight Standing Scale Chair scale Measurement Method Current Medications: Current Medications Sig/Lola Start time Last Medication Dose Route Stop Time Status Admin Acetaminophen 325 MG Q4P PRN 03/21 2115 AC 03/26 PO 1707 Albumin Human 25 GM Q8 03/24 220 AC 03/30 IV 0553 Ceftazidime 1,000 MG Q24H 03/27 0800 AC 03/30 IV 0856 Desvenlafaxine 50 MG MoWeFr@1300 03/30 1300 AC Succinate PO Epoetin Bryan 3,000 UNITS 03/30 1000 CAN IV Epoetin Bryan 3,000 UNIT 03/30 1000 AC 03/30 IV 1035 Heparin Sodium 5,000 UNIT Q8 03/28 1444 AC 03/30 (Porcine) SC 1455 Metoprolol Tartrate 6.25 MG BID 03/25 2199 AC 03/29 PO 2158 Morphine Sulfate 2 MG Q4P PRN 03/21 2100 AC 03/30 IV 0905 Multivitamins 1 TAB 1700 03/25 1700 AC 03/28 PO 1708 Omeprazole 40 MG DAILY AC 03/25 1648 AC 03/30 PO 0557 Ondansetron HCl 4 MG Q6-PRN PRN 03/30 1300 AC 03/30 IV 1415 Ondansetron HCl 4 MG Q8P PRN 03/30 1245 DC IV Ondansetron HCl 4 MG ONCE PRN 03/28 0830 DC 03/30 IV 0905 Sevelamer Carbonate 1,600 MG WITH MEALS 03/24 1700 AC 03/30 PO 0856 Trimethobenzamide HCl 200 MG TID PRN 03/27 2014 DC 03/29 IM 1650 Verapamil HCl 180 MG DAILY 03/25 0745 AC 03/29 PO 0934 Results Last 48 Hrs of Labs/Mics: Laboratory Tests 03/30/17 0505: Anion Gap 26 H, Estimated GFR 12 L, Glucose 103 H, Calcium 9.3, Phosphorus 4.8 H, Magnesium 2.0, Total Bilirubin 1.3, AST 21, ALT 28, Albumin 4.5, CBC w Diff MAN DIFF ORDERED, RBC 4.17 L, MCV 78.0 L, MCH 24.2 L, RDW 20.5 H, MPV 11.2 H, Gran % 86.5 H, Lymphocytes % 5.8 L, Monocytes % 7.2, Eosinophils % 0.5, Basophils % 0, Absolute Granulocytes 14.4 H, Segmented Neutrophils 89 H, Absolute Lymphocytes 1.0 L, Lymphocytes 3 L, Monocytes 7, Absolute Monocytes 1.2 H, Eosinophils 1, Absolute Eosinophils 0.1, Absolute Basophils 0, Nucleated RBCs 2 H, Platelet Estimate ADEQUATE, Polychromasia 1+, Hypochromic-Microcytic 1+, Poikilocytosis 1+, Anisocytosis 1+, Microcytic Cells 1+, Target Cells RARE, Ovalocytes 1+, Elliptocytes FEW, PUBS MCHC 31.0 L, Fld Total RBCs Counted 100 03/29/17 0400: Anion Gap 20 H, Estimated GFR 14 L, Glucose 118 H, Calcium 9.0, Phosphorus 4.2, Magnesium 1.9, Total Bilirubin 1.4 H, AST 21, ALT 22, Albumin 3.9, CBC w Diff NO MAN DIFF REQ, RBC 3.68 L, MCV 77.3 L, MCH 25.2 L, RDW 20.6 H, MPV 11.3 H, Gran % 89.4 H, Lymphocytes % 4.2 L, Monocytes % 6.1, Eosinophils % 0.3, Basophils % 0, Absolute Granulocytes 12.3 H, Absolute Lymphocytes 0.6 L, Absolute Monocytes 0.8 H, Absolute Eosinophils 0, Absolute Basophils 0, PUBS MCHC 32.6 L Assessment/Plan Assessment/Plan Assessment: 1. Nonsustained superventricular tachycardia-stable with no significant arrhythmias over the last 24 hours 2. Ascites with SBP vs Catheter-associated Peritonitis 3. Acute on chronic renal insufficiency with polycystic kidneys 4. Polycystic liver disease 5. Hyperkalemia 6. Microcytic anemia Recreations: -Keep the patient on monitoring and evaluation advisor -I suspect that the nonsustained SVT is likely related to underlying metabolic abnormalities. Continue to monitor potassium, magnesium, etc. No further significant arrhythmias noted since institution of dialysis. -Continue metoprolol at 6.25 mg BID -For any episodes of sustained SVT, administer adenosine 6 mg IV; not IV Lopressor since it seems ineffective in resolving the patient's rhythm disorder. -Further plans after the above. Continue telemetry? Yes
[2017-03-30 16:00] VITALS: BP 100/56
--- NOTE | 2017-03-30 16:13 | ULTRASOUND REPORT ---
EXAMINATION: US ABDOMEN COMPLETE CLINICAL INFORMATION: Ascites, peritonitis. History of prior catheter associated infection.. COMPARISON: CT scan of the abdomen and pelvis dated 03/21/2017. TECHNIQUE: Real-time imaging of the abdominal viscera. FINDINGS: No normal abdominal organ parenchyma is discernible from the numerous cystic structures which are present throughout the abdomen (refer to the CT study of 03/19/2017). No significant assessment is attainable. Free fluid is identified throughout the abdomen. IMPRESSION: Extensive cystic structures and free fluid present throughout the abdomen, without adequate evaluation of the abdominal organ structures.
[2017-03-31] VITALS: BP 94/50
[2017-03-31 04:55] LABS: ABSOLUTE BASOPHIL COUNT 0 /CUMM (0.0-0.2); ABSOLUTE EOSINOPHIL COUNT 0 /CUMM (0.0-0.7); ABSOLUTE GRANULOCYTE CT 13.9 /CUMM (1.4-6.5); ABSOLUTE LYMPH COUNT 0.5 /CUMM (1.2-3.4); ABSOLUTE MONOCYTE COUNT 1.3 /CUMM (0.10-0.60); BASOPHIL % 0 % (0.0-2.0); EOSINOPHIL % 0.3 % (0-5); GRANULOCYTE % 88.2 % (42.2-75.2); HEMATOCRIT 28.7 % (42-52); MEAN CORPUSCULAR HGB 24.6 PG (27.0-31.0); MEAN CORPUSCULAR HGB CONC 31.5 G/DL (33.0-37.0); MEAN CORPUSCULAR VOLUME 78.1 FL (80.0-94.0); MEAN PLATELET VOLUME 11.5 FL (7.4-10.4); PLATELET COUNT 189 /CUMM (130-400); RED BLOOD CELL CT 3.68 /CUMM (4.70-6.10); WHITE BLOOD CELL COUNT 15.7 /CUMM (4.8-10.8)
[2017-03-31 05:22] LABS: PT 16.9 SEC (9.4-12.5)
--- NOTE | 2017-03-31 07:43 | PN- Cardiology ---
Subjective Subjective: rhythm remained stable. No further SVT. Low blood pressure persistent today. Patient notes fatigue but denies any other cardiac symptoms. Objective Vital Signs and I&Os Vital Signs Date Time Temp Pulse Resp B/P B/P Pulse O2 O2 Flow FiO2 Mean Ox Delivery Rate 03/31 0000 98.2 94 12 94/50 96 Room Air 03/31 0000 96 Room Air 03/30 2238 100 90/50 03/30 1600 97 Room Air 03/30 1600 98.8 106 18 100/56 97 Room Air 03/30 0857 98 90/73 03/30 0857 98 90/73 03/30 0800 97 Room Air 03/30 0800 97.5 92 98 91/68 97 Room Air Intake & Output 03/31 0800 03/31 0000 03/30 1600 03/30 0800 03/30 0000 03/29 1600 Intake Total 150 750 360 50 460 850 Output Total 0 23 350 0 Balance 150 727 10 50 460 850 Intake, IV 100 210 20 0 100 130 Intake, Oral 50 540 340 50 360 720 Number 0 0 0 0 1 Bowel Movements Output, Chest 0 23 50 0 Tube Drainage Output, 300 Dialysate Output, Urine 0 0 0 0 Patient 133 lb 133 lb 148 lb Weight Weight Standing Scale Standing Scale Chair scale Measurement Method Current Medications: Current Medications Sig/Lola Start time Last Medication Dose Route Stop Time Status Admin Acetaminophen 325 MG Q4P PRN 03/21 211 AC 03/26 PO 1707 Albumin Human 25 GM Q8 03/24 220 AC 03/31 IV 0613 Ceftazidime 1,000 MG Q24H 03/27 0800 AC 03/30 IV 0856 Desvenlafaxine 50 MG MoWeFr@1300 03/30 1300 AC 03/30 Succinate PO 1810 Epoetin Bryan 3,000 UNITS 03/30 1000 CAN IV Epoetin Bryan 3,000 UNIT 03/30 1000 AC 03/30 IV 1035 Heparin Sodium 5,000 UNIT Q8 03/28 1444 AC 03/31 (Porcine) SC 0617 Metoprolol Tartrate 6.25 MG BID 03/25 220 AC 03/29 PO 2158 Morphine Sulfate 2 MG Q4P PRN 03/21 2100 AC 03/30 IV 1819 Multivitamins 1 TAB 1700 03/25 1700 AC 03/30 PO 1810 Omeprazole 40 MG DAILY AC 03/25 1648 AC 03/31 PO 0614 Ondansetron HCl 4 MG Q6-PRN PRN 03/30 1300 AC 03/30 IV 2254 Ondansetron HCl 4 MG Q8P PRN 03/30 1245 DC IV Ondansetron HCl 4 MG ONCE PRN 03/28 0830 DC 03/30 IV 0905 Sevelamer Carbonate 1,600 MG WITH MEALS 03/24 1700 AC 03/30 PO 1809 Trimethobenzamide HCl 200 MG .STK-MED ONE 03/30 0824 DC IM 03/30 0825 Trimethobenzamide HCl 200 MG TID PRN 03/27 2014 DC 03/29 IM 165 Verapamil HCl 180 MG DAILY 03/25 0745 AC 03/29 PO 0934 Results Last 48 Hrs of Labs/Mics: Laboratory Tests 03/31/17 0350: Anion Gap 23 H, Estimated GFR 15 L, Glucose 111 H, Calcium 9.5, Phosphorus 4.4, Magnesium 1.9, Total Bilirubin 1.4 H, AST 14 L, ALT 27, Albumin 4.4, PT 16.9 H, INR 1.62 H, CBC w Diff MAN DIFF ORDERED, RBC 3.68 L, MCV 78.1 L, MCH 24.6 L, RDW 21.0 H, MPV 11.5 H, Gran % 88.2 H, Lymphocytes % 3.4 L, Monocytes % 8.1, Eosinophils % 0.3, Basophils % 0, Absolute Granulocytes 13.9 H , Segmented Neutrophils 87 H, Absolute Lymphocytes 0.5 L, Lymphocytes 6 L, Monocytes 7, Absolute Monocytes 1.3 H, Absolute Eosinophils 0, Absolute Basophils 0, Platelet Estimate ADEQUATE, Polychromasia 1+, Hypochromic- Microcytic 2+, Anisocytosis 1+, Microcytic Cells 1+, Target Cells 1+, [place] Cells RARE, PUBS MCHC 31.5 L 03/30/17 0505: Anion Gap 26 H, Estimated GFR 12 L, Glucose 103 H, Calcium 9.3, Phosphorus 4.8 H, Magnesium 2.0, Total Bilirubin 1.3, AST 21, ALT 28, Albumin 4.5, CBC w Diff MAN DIFF ORDERED, RBC 4.17 L, MCV 78.0 L, MCH 24.2 L, RDW 20.5 H, MPV 11.2 H, Gran % 86.5 H, Lymphocytes % 5.8 L, Monocytes % 7.2, Eosinophils % 0.5, Basophils % 0, Absolute Granulocytes 14.4 H, Segmented Neutrophils 89 H, Absolute Lymphocytes 1.0 L, Lymphocytes 3 L, Monocytes 7, Absolute Monocytes 1.2 H, Eosinophils 1, Absolute Eosinophils 0.1, Absolute Basophils 0, Nucleated RBCs 2 H, Platelet Estimate ADEQUATE, Polychromasia 1+, Hypochromic-Microcytic 1+, Poikilocytosis 1+, Anisocytosis 1+, Microcytic Cells 1+, Target Cells RARE, Ovalocytes 1+, Elliptocytes FEW, PUBS MCHC 31.0 L, Fld Total RBCs Counted 100 Assessment/Plan Assessment/Plan Assessment: 1. Nonsustained superventricular tachycardia-stable with no significant arrhythmias over the last 24 hours 2. Ascites with SBP vs Catheter-associated Peritonitis 3. Acute on chronic renal insufficiency with polycystic kidneys 4. Polycystic liver disease 5. Hyperkalemia 6. Microcytic anemia 7. Persistent hypotension Recommendations: -continue as per the ICU team. -Paracentesis pending -Beta blockers and calcium channel blockers on hold. -Continue to monitor closely on traffic monitor specialist. -In view of persistent low blood pressure, check cortisol level if not already checked. Continue telemetry? Yes
[2017-03-31 08:30] VITALS: BP 66/00; BP 88/48
--- NOTE | 2017-03-31 08:51 | PN- Resident CRCU ---
See Addendum Subjective HPI/CRCU Issues: Catheter-associated Peritonitis SHELBY on CKD on HD Nonsustained SVT - resolved Hyperkalemia - resolved Acute hypoxic respiratory failure - resolved 24 Hour Events: Blood pressure has been running on the soft side. Continues to complain of nausea unresolved with zofran/tigan. Appetite remains poor, consumes approx 25% of his meals. Denies any active complaints. Objective Vital Signs & I&O Last 8 Hrs of Vitals and I&O: . Exam General Appearance: no apparent distress, alert, awake, comfortable Head: atraumatic, normal appearance Neck: normal inspection Respiratory: normal breath sounds, chest non-tender, lungs clear Cardiovascular: regular rate/rhythm Gastrointestinal: soft, non-tender, distention, palpable cysts Extremities: no edema Cranial Nerves: normal hearing, normal speech Skin Temp/Moisture Exam: Warm/Dry Sepsis Skin Exam (color): Normal for Ethnicity Current Medications: Current Medications Sig/Lola Start time Last Medication Dose Route Stop Time Status Admin Acetaminophen 325 MG Q4P PRN 03/21 2115 AC 03/26 PO 1707 Albumin Human 25 GM Q8 03/24 2200 AC 03/31 IV 0613 Ceftazidime 1,000 MG Q24H 03/27 0800 AC 03/31 IV 1005 Desvenlafaxine 50 MG MoWeFr@1300 03/30 1300 AC 03/30 Succinate PO 1810 Epoetin Bryan 3,000 UNIT 03/30 1000 AC 03/30 IV 1035 Heparin Sodium 5,000 UNIT Q8 03/28 1444 AC 03/31 (Porcine) SC 0617 Metoprolol Tartrate 6.25 MG BID 03/25 2200 AC 03/29 PO 2158 Morphine Sulfate 2 MG Q4P PRN 03/21 2100 AC 03/30 IV 1819 Multivitamins 1 TAB 1700 03/25 1700 AC 03/30 PO 1810 Omeprazole 40 MG DAILY AC 03/25 1648 AC 03/31 PO 0614 Ondansetron HCl 4 MG Q6-PRN PRN 03/30 1300 AC 03/30 IV 2254 Ondansetron HCl 4 MG Q8P PRN 03/30 1245 DC IV Ondansetron HCl 4 MG ONCE PRN 03/28 0830 DC 03/30 IV 0905 Promethazine HCl 12.5 MG ONCE ONE 03/31 0830 DC 03/31 IV 03/31 0831 1055 Sevelamer Carbonate 1,600 MG WITH MEALS 03/24 1700 AC 03/31 PO 1006 Sodium Chloride 500 ML BOLUS ONE 03/31 1015 DC 03/31 IV 03/31 1114 1045 Trimethobenzamide HCl 200 MG TID PRN 03/27 2014 DC 03/29 IM 1650 Verapamil HCl 180 MG DAILY 03/25 0745 AC 03/29 PO 0934 Impression/Plan Impression/Problem List Impression: Mr. Tijerina is a 66 yo m with a PMH of PKD, Polycystic liver disease, portal HTN , HTN, HLD, umbilical hernia repair, colon ademona, GERD who presented to the ED with NVD with progressively worsened abdominal distention from ascitic fluid. Assessment and Plan: Nonsustained SVT - resolved Patient experienced 2 episodes of SVT with HR up to 180s. He was asymptomatic during both events. During the first event he was administered IV Metoprolol 5 mg. The second event spontaneously resolved and did not require medical management * Continue Metoprolol 6.25 mg BID * Cardiology recommendations appreciated * Will administer Adenosine for any acute events * Patient to continue on tele monitoring for now. Acute Hypoxic Respiratory Failure s/p Pleurx Cath removal: Patient has a patent connection between abdominal cavity and pleural space 2/2 migrated indwelling catheter, leading to transfer of ascitic fluid to the pleural space. A pig tail was placed. As per Dr. Carson options are to watch and wait to see if spontaneously resolves vs surgical intervention. PA/Lateral CXR on 03/25 for pleural effusion demonstrated no significant pleural effusion or evidence of pneumothorax. ECHO demonstrated Aortic sclerosis is present with no valvular stenosis or insufficiency, a very small pericardial effusion, EF 55-60 % * Continue pigtail catheter drainage connected to water seal. His output tends to 10-20ml per shift. * Surgery recommends to leave the catheter in place for now. If the connection does not seal on its own, the patient may require surgery. * TRC/nebs, oxygen supplementation PRN. Remains on room air. * CXR 03/29 showed no pleural effusion or acute abnormality. Catheter-associated Peritonitis: Patient had an indwelling pleural catheter placed in July 2016 for pleural effusion that migrated into the abdominal cavity. Considering that the patient's catheter was never removed it can be a possible source of infection. He had another catheter placed in the R lung that was eventually removed. CT abdomen/ pelvis on admission demonstrated the resolution of his R-side pleural effusion. He gets 1L of ascitic fluid drained from the migrated Pleurx catheter on . Prior to coming to the hospital it was last drained on Tuesday by his visiting nurse. He had a diagnostic and therapeutic paracentesis performed. His ascitic fluid white count was 8222. Repeat paracentesis demonstrated a transudative ascitic fluid with SAAG > 1. His ascitic fluid culture grew GNR and he was started on Ceftazidime. Vancomycin was discontinued. * ID recommendations appreciated. * His white count is rising concerning for a new infection. * Blood cultures - pending * RUQ U/S demonstrated extensive cystic structures and free fluid present throughout the abdomen. * Scheduled for a diagnostic paracentesis today. * Will f/u ascitic fluid studies. * Will send for C.diff if he has diarrhea. * Continue Ceftazidime daily. * Continue IV albumin 25gm q8. * Metoclopramide discontinued to avoid EPS * No plans for surgical closure of the diaphargmatic connection. Will await as long as possible. SHELBY on CKD most likely 2/2 dehydration in the setting of his CKD from PKD: Patient is reported to have a baseline Cr of 2-3. His Cr initially eliceo on admission but has trended down. Patient had an Evin cath placed * Continue to monitor renal function * Continue IV Albumin 25 gm q8 * Nephrology recommendations appreciated * Dialysis M/W/F * Continue Epogen with dialysis. Depression: * Patient requested for a psych consult as he feels depressed. * Psych has suggested starting him on DesVenlafaxine 50mg daily. * Renal and GI have approved the use of the medication from their standpoint. However, recommend monitoring of LFTs while on the drug. * Patient states he wants to think about it before starting on the medication. The nausea is primary concern. History of PKD, Polycystic liver disease: Patient reported he had an appt at [facility] in which he was told he wouldn't receive a transplant until the resolution of his ascitic fluid. CT abd/pel demonstrated numerous cysts effectively replacing the normal hepatic and bilateral renal parenchyma Diet: Regular Diet with 2g K restriction. DVT Prophylaxis: ALPS Code Status: Full Problem List: 1. Polycystic liver disease 2. Polycystic kidney disease Pain Ratin Tomorrow's Labs & Rationales: CBC, ICU bundle Plan DVT/Prophylaxis: mechanical
[2017-03-31 10:09] VITALS: BP 70/50
[2017-03-31 11:00] VITALS: BP 66/00
--- NOTE | 2017-03-31 11:13 | PN- Infect Dx ---
Subjective Subjective: Afebrile. He continues to complain of mild nausea but offers no other complaints. Objective Last 24 Hrs of Vital Signs/I&O Vital Signs Date Time Temp Pulse Resp B/P B/P Pulse O2 O2 Flow FiO2 Mean Ox Delivery Rate 03/31 1009 98.0 96 15 70/50 97 Room Air 03/31 0000 98.2 94 12 94/50 96 Room Air 03/31 0000 96 Room Air 03/30 2238 100 90/50 03/30 1600 97 Room Air 03/30 1600 98.8 106 18 100/56 97 Room Air Intake & Output 03/31 1600 03/31 0800 03/31 0000 Intake Total 150 750 Output Total 0 23 Balance 150 727 Intake, IV 100 210 Intake, Oral 50 540 Number 0 0 Bowel Movements Output, Chest 0 23 Tube Drainage Output, Urine 0 0 Physical Exam Other Physical Findings: He appears weak and cachectic but in no acute distress Neck dialysis catheter in the right IJ with no inflammation at the site Lungs are clear Heart regular rhythm with no murmur Abdomen is distended, nontender with positive bowel sounds Extremities no cyanosis, clubbing or edema Results Last 24 Hours of Lab Results: Laboratory Tests 03/31 0350 Chemistry Sodium (137 - 145 mmol/L) 145 Potassium (3.5 - 5.1 mmol/L) 4.1 Chloride (98 - 107 mmol/L) 102 Carbon Dioxide (22 - 30 mmol/L) 21 L Anion Gap (5 - 16) 23 H BUN (9 - 20 mg/dL) 52 H Creatinine (0.7 - 1.2 mg/dL) 4.1 H Estimated GFR (>60 ml/min) 15 L Glucose (65 - 99 mg/dL) 111 H Calcium (8.4 - 10.2 mg/dL) 9.5 Phosphorus (2.5 - 4.5 mg/dL) 4.4 Magnesium (1.6 - 2.3 mg/dL) 1.9 Total Bilirubin (0.2 - 1.3 mg/dL) 1.4 H AST (17 - 59 U/L) 14 L ALT (21 - 72 U/L) 27 Albumin (3.5 - 5.0 g/dL) 4.4 Coagulation PT (9.4 - 12.5 SEC) 16.9 H INR (0.90 - 1.17) 1.62 H Hematology CBC w Diff MAN DIFF ORDERED WBC (4.8 - 10.8 /CUMM) 15.7 H RBC (4.70 - 6.10 /CUMM) 3.68 L Hgb (14.0 - 18.0 G/DL) 9.0 L Hct (42 - 52 %) 28.7 L MCV (80.0 - 94.0 FL) 78.1 L MCH (27.0 - 31.0 PG) 24.6 L RDW (11.5 - 14.5 %) 21.0 H Plt Count (130 - 400 /CUMM) 189 MPV (7.4 - 10.4 FL) 11.5 H Gran % (42.2 - 75.2 %) 88.2 H Lymphocytes % (20.5 - 51.1 %) 3.4 L Monocytes % (1.7 - 9.3 %) 8.1 Eosinophils % (0 - 5 %) 0.3 Basophils % (0.0 - 2.0 %) 0 Absolute Granulocytes (1.4 - 6.5 /CUMM) 13.9 H Segmented Neutrophils (42.2 - 75.2 %) 87 H Absolute Lymphocytes (1.2 - 3.4 /CUMM) 0.5 L Lymphocytes (20.5 - 51.1 %) 6 L Monocytes (1.7 - 9.3 %) 7 Absolute Monocytes (0.10 - 0.60 /CUMM) 1.3 H Absolute Eosinophils (0.0 - 0.7 /CUMM) 0 Absolute Basophils (0.0 - 0.2 /CUMM) 0 Platelet Estimate (ADEQUATE) ADEQUATE Polychromasia 1+ Hypochromic-Microcytic 2+ Anisocytosis 1+ Microcytic Cells 1+ Target Cells 1+ [place] Cells RARE PUBS MCHC (33.0 - 37.0 G/DL) 31.5 L Last 24 Hours of [place] Results: Pleural fluid culture sent March 30 (found in the refrigerator) pending Blood cultures 2 March 30 negative Recent Imaging Studies: Abdominal ultrasound March 30 reveals free fluid throughout the abdomen Assessment/Plan Impression: Clinically stable, with temperatures remaining normal on Ceftazidime for Escherichia coli and Pseudomonas peritonitis secondary to a migrated Pleurex catheter, removed 9 days ago in the OR, with a persistent leukocytosis, which remains unexplained. The pleural fluid was submitted yesterday for culture and cytology (from the new Pleurx catheter) but not for cell count, and he is scheduled for a repeat paracentesis by IR today. He continues on dialysis for worsening renal failure, possibly secondary to sepsis superimposed on his underlying polycystic kidney (and liver) disease. Suggestion: 1. Await paracentesis 2. Send pleural fluid for cell count, chemistries and pH and follow-up culture and cytology 3. 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 Continue Ceftazidime
[2017-03-31 13:30] VITALS: BP 86/00
[2017-03-31 15:00] VITALS: BP 90/64
--- NOTE | 2017-03-31 16:22 | ULTRASOUND REPORT ---
CLINICAL HISTORY: This patient is a 67 year old male with ascites and concern for infection, who is referred to Interventional Radiology for ultrasound-guided paracentesis. As per Dr. Moreland , a maximum of 2 L of fluid could be removed. PROCEDURE: Ultrasound-guided paracentesis. PHYSICIANS: Dr. Lamont Colon (attending). MEDICATIONS: 10 mL of 1% lidocaine SQ. COMPLICATIONS: None ESTIMATED BLOOD LOSS: <5 mL SPECIMENS: Clear ascites sent for analysis as requested IMPLANT: None. SITE MARKING: As part of the preprocedure verification policy, a site marking procedure was initiated. Due to the nature the procedure, the insertion site could not be predetermined thus invoking the policy of exemption to site laterality and marking. Insertion site marking was performed in the procedure room in conjunction with imaging confirmation. PROCEDURE NOTE: Informed consent was obtained from the patient prior to the procedure. During this process, the procedure and potential alternatives were explained along with the intended outcome and benefits. The risks of the procedure, including the possibility of an unsuccessful procedure, as well as the risk of not doing the procedure, were discussed. The patient was given the opportunity to ask questions regarding the procedure and appeared competent to make decisions. A signed consent form documenting this discussion was placed in the medical record. A time-out procedure was performed. Appropriate preprocedure medical history and imaging studies were reviewed. The patient was brought to the ultrasound room and placed in the supine position. A time-out procedure was performed. Ultrasound images of the abdomen were obtained to localize a moderate collection of ascites. Images were permanently saved to the record. An area of the right lower quadrant was prepped and draped in the standard sterile fashion. All elements of maximal sterile barrier technique followed including use of cap, mask, sterile gown, sterile gloves, a sterile full body drape and hand hygiene. Also followed skin preparation with 2% chlorhexidine for cutaneous antisepsis, and sterile ultrasound preparation with sterile gel and probe cover when applicable. 10 mL of 1% lidocaine was used to obtain local anesthesia of the skin and deeper tissues. A standard small-bore needle was introduced to sample fluid and demonstrated a safe access route. There was no evidence of traversing adjacent organs or vascular structures. A 6-Fr [id number] closed needle/catheter system was utilized for access. 2.0 L of clear yellow fluid was aspirated before drainage ceased. The catheter was removed and sterile dressing applied. The patient tolerated the procedure well without evidence of complications. FINDINGS: Moderate simple abdominal ascites as detailed above. IMPRESSION: Successful ultrasound-guided diagnostic paracentesis. PLAN: The patient was stable after the procedure.
[2017-04-01] VITALS: BP 98/60
[2017-04-01 05:52] LABS: HEMATOCRIT 28.4 % (42-52); MEAN CORPUSCULAR HGB 24.2 PG (27.0-31.0); MEAN CORPUSCULAR HGB CONC 30.8 G/DL (33.0-37.0); MEAN CORPUSCULAR VOLUME 78.5 FL (80.0-94.0); MEAN PLATELET VOLUME 11.8 FL (7.4-10.4); PLATELET COUNT 180 /CUMM (130-400); RED BLOOD CELL CT 3.61 /CUMM (4.70-6.10); WHITE BLOOD CELL COUNT 17.3 /CUMM (4.8-10.8)
--- NOTE | 2017-04-01 07:08 | PN- Resident CRCU ---
Subjective HPI/CRCU Issues: Catheter-associated Peritonitis SHELBY on CKD on HD Nonsustained SVT - resolved Hyperkalemia - resolved Acute hypoxic respiratory failure - resolved 24 Hour Events: His blood pressure has been running low for which he has received fluid boluses. He had a large volume paracentesis (2L) yesterday. Though the radiologist at the time reported that he still had 2-3 L of additional fluid. However, his blood pressure was in the 80-90 systolic and hence further fluid was not drained. He states that he feels weak and nauseaous. though the latter seems to have improved from what he was previously experiencing. Objective Vital Signs & I&O Last 8 Hrs of Vitals and I&O: . Exam General Appearance: no apparent distress, alert, awake, mild distress, thin Head: atraumatic, normal appearance Respiratory: normal breath sounds, chest non-tender, lungs clear Cardiovascular: regular rate/rhythm, systolic murmur Gastrointestinal: soft, non-tender, distention, palpable cysts Extremities: no edema Cranial Nerves: normal hearing, normal speech Skin: intact, normal color Skin Temp/Moisture Exam: Warm/Dry Sepsis Skin Exam (color): Normal for Ethnicity Current Medications: Current Medications Sig/Lola Start time Last Medication Dose Route Stop Time Status Admin Acetaminophen 325 MG Q4P PRN 03/21 2115 AC 03/26 PO 1707 Albumin Human 25 GM ONCE ONE 04/01 0800 DC IV 04/01 0801 Albumin Human 25 GM ONCE ONE 03/31 1530 DC IV 03/31 1531 Albumin Human 25 GM Q8 03/24 2200 AC 04/01 IV 0511 Alteplase, 2 MG ONCE ONE 03/31 1615 DC Recombinant IPL 03/31 1616 Ceftazidime 1,000 MG Q24H 03/27 0800 AC 03/31 IV 1005 Desvenlafaxine 50 MG MoWeFr@1300 03/30 1300 AC 03/30 Succinate PO 1810 Epoetin Bryan 3,000 UNIT 03/30 1000 AC 03/30 IV 1035 Heparin Sodium 5,000 UNIT Q8 03/28 1444 AC 04/01 (Porcine) SC 0605 Metoprolol Tartrate 6.25 MG BID 03/25 2200 DC 03/29 PO 2158 Morphine Sulfate 2 MG Q4P PRN 03/21 2100 AC 03/30 IV 1819 Multivitamins 1 TAB 1700 03/25 1700 AC 03/31 PO 1738 Omeprazole 40 MG DAILY AC 03/25 1648 AC 04/01 PO 0605 Ondansetron HCl 4 MG Q6-PRN PRN 03/30 1300 DC 03/30 IV 2254 Promethazine HCl 12.5 MG Q4P PRN 03/31 1745 AC 03/31 IV 04/07 1744 2343 Sevelamer Carbonate 1,600 MG WITH MEALS 03/24 1700 AC 03/31 PO 1736 Sodium Chloride 500 ML BOLUS ONE 04/01 0815 CAN IV 04/01 0914 Sodium Chloride 500 ML BOLUS ONE 03/31 1300 DC 03/31 IV 03/31 1359 1330 Verapamil HCl 180 MG DAILY 03/25 0745 AC 03/29 PO 0934 Impression/Plan Impression/Problem List Impression: Mr. Tijerina is a 66 yo m with a PMH of PKD, Polycystic liver disease, portal HTN , HTN, HLD, umbilical hernia repair, colon ademona, GERD who presented to the ED with NVD with progressively worsened abdominal distention from ascitic fluid. Assessment and Plan: Nonsustained SVT - resolved Patient experienced 2 episodes of SVT with HR up to 180s. He was asymptomatic during both events. During the first event he was administered IV Metoprolol 5 mg. The second event spontaneously resolved and did not require medical management * Continue Metoprolol 6.25 mg BID * Cardiology recommendations appreciated * Will administer Adenosine for any acute events * Patient to continue on tele monitoring for now. He does have short intermittent runs of SVT on the monitor overnight. Acute Hypoxic Respiratory Failure s/p Pleurx Cath removal: Patient has a patent connection between abdominal cavity and pleural space 2/2 migrated indwelling catheter, leading to transfer of ascitic fluid to the pleural space. A pig tail was placed. As per Dr. Carson options are to watch and wait to see if spontaneously resolves vs surgical intervention. PA/Lateral CXR on 03/25 for pleural effusion demonstrated no significant pleural effusion or evidence of pneumothorax. ECHO demonstrated Aortic sclerosis is present with no valvular stenosis or insufficiency, a very small pericardial effusion, EF 55-60 % * Continue pigtail catheter drainage connected to water seal. His output tends to 10-20ml per shift. * Surgery recommends to leave the catheter in place for now. If the connection does not seal on its own, the patient may require surgery. * His output through the Pleurx catheter has been very low which is suggestive that perhaps the connection is closing on its own. * TRC/nebs, oxygen supplementation PRN. Remains on room air. * CXR 03/29 showed no pleural effusion or acute abnormality. Catheter-associated Peritonitis: Patient had an indwelling pleural catheter placed in July 2016 for pleural effusion that migrated into the abdominal cavity. Considering that the patient's catheter was never removed it can be a possible source of infection. He had another catheter placed in the R lung that was eventually removed. CT abdomen/ pelvis on admission demonstrated the resolution of his R-side pleural effusion. He gets 1L of ascitic fluid drained from the migrated Pleurx catheter on . Prior to coming to the hospital it was last drained on Tuesday by his visiting nurse. He had a diagnostic and therapeutic paracentesis performed. His ascitic fluid white count was 8222. Repeat paracentesis demonstrated a transudative ascitic fluid with SAAG > 1. His ascitic fluid culture grew GNR and he was started on Ceftazidime. Vancomycin was discontinued. * ID recommendations appreciated. * His white count is rising concerning for a new infection. * Blood cultures - pending * RUQ U/S demonstrated extensive cystic structures and free fluid present throughout the abdomen. * Had a diagnostic and therapeutic paracentesis yesterday. * Will f/u ascitic fluid studies. So far no evidence of infection or SBP * Will send for C.diff if he has diarrhea. * Continue Ceftazidime daily. * Continue IV albumin 25gm q8. * Metoclopramide discontinued to avoid EPS * No plans for surgical closure of the diaphargmatic connection. Will await as long as possible. SHELBY on CKD most likely 2/2 dehydration in the setting of his CKD from PKD: Patient is reported to have a baseline Cr of 2-3. His Cr initially eliceo on admission but has trended down. Patient had an Evin cath placed * Continue to monitor renal function * Continue IV Albumin 25 gm q8 * Nephrology recommendations appreciated * Dialysis M/W/F * Continue Epogen with dialysis. Depression: * Patient requested for a psych consult as he feels depressed. * Psych has suggested starting him on DesVenlafaxine 50mg daily. * Renal and GI have approved the use of the medication from their standpoint. However, recommend monitoring of LFTs while on the drug. * Patient is agreeable to start the medication. History of PKD, Polycystic liver disease: Patient reported he had an appt at [facility] [place] [facility] in which he was told he wouldn't receive a transplant until the resolution of his ascitic fluid. CT abd/pel demonstrated numerous cysts effectively replacing the normal hepatic and bilateral renal parenchyma Diet: Regular Diet with 2g K restriction. DVT Prophylaxis: ALPS Code Status: Full Problem List: 1. Polycystic liver disease 2. Polycystic kidney disease Pain Ratin Tomorrow's Labs & Rationales: CBC, ICU bundle Plan DVT/Prophylaxis: mechanical
[2017-04-01 08:00] VITALS: BP 72/00
--- NOTE | 2017-04-01 08:49 | PN- CRCU ---
Subjective HPI/Critical Care Issues: The patient remains weak and frail with a poor oral appetite. His blood pressure is intermittently low. There were no overnight events. Objective Current Medications: Current Medications Sig/Lola Start time Last Medication Dose Route Stop Time Status Admin Acetaminophen 325 MG Q4P PRN 03/21 2115 AC 03/26 PO 1707 Albumin Human 25 GM ONCE ONE 04/01 0800 DC IV 04/01 0801 Albumin Human 25 GM ONCE ONE 03/31 1530 DC IV 03/31 1531 Albumin Human 25 GM Q8 03/24 2200 AC 04/01 IV 0511 Alteplase, 2 MG ONCE ONE 03/31 1615 DC Recombinant IPL 03/31 1616 Ceftazidime 1,000 MG Q24H 03/27 0800 AC 03/31 IV 1005 Desvenlafaxine 50 MG MoWeFr@1300 03/30 1300 AC 03/30 Succinate PO 1810 Epoetin Bryan 3,000 UNIT 03/30 1000 AC 03/30 IV 1035 Heparin Sodium 5,000 UNIT Q8 03/28 1444 AC 04/01 (Porcine) SC 0605 Metoprolol Tartrate 6.25 MG BID 03/25 2200 DC 03/29 PO 2158 Morphine Sulfate 2 MG Q4P PRN 03/21 2100 AC 03/30 IV 1819 Multivitamins 1 TAB 1700 03/25 1700 AC 03/31 PO 1738 Omeprazole 40 MG DAILY AC 03/25 1648 AC 04/01 PO 0605 Ondansetron HCl 4 MG Q6-PRN PRN 03/30 1300 DC 03/30 IV 2254 Promethazine HCl 12.5 MG Q4P PRN 03/31 1745 AC 03/31 IV 04/07 1744 2343 Sevelamer Carbonate 1,600 MG WITH MEALS 03/24 1700 AC 03/31 PO 1736 Sodium Chloride 500 ML BOLUS ONE 04/01 0815 CAN IV 04/01 0914 Sodium Chloride 500 ML BOLUS ONE 03/31 1300 DC 03/31 IV 03/31 1359 1330 Sodium Chloride 500 ML BOLUS ONE 03/31 1015 DC 03/31 IV 03/31 1114 1045 Verapamil HCl 180 MG DAILY 03/25 0745 AC 03/29 PO 0934 Vital Signs & I&O Last 24 Hrs of Vitals and I&O: Vital Signs Date Time Temp Pulse Resp B/P B/P Pulse O2 O2 Flow FiO2 Mean Ox Delivery Rate 04/01 0400 95 Room Air 04/01 0000 96 Room Air 04/01 0000 98.7 95 18 98/60 96 Room Air 03/31 2000 95 Room Air 03/31 1500 97.9 100 20 90/64 97 Room Air 03/31 1330 98.6 95 22 86/00 96 Room Air 03/31 1116 96 70/00 03/31 1115 96 70/00 03/31 1100 94 66/00 03/31 1009 98.0 96 15 70/50 97 Room Air Intake & Output 04/01 1600 04/01 0800 04/01 0000 Intake Total 350 680 Output Total 10 Balance 340 680 Intake, Blood 100 Product Intake, IV 50 100 Intake, Oral 200 580 Number 0 Bowel Movements Output, Chest 10 Tube Drainage Output, Urine 0 Patient 134 lb 133 lb Weight Weight Standing Scale Standing Scale Measurement Method Impression/Plan Impression/Plan Impression/Plan: 1. Increasing leukocytosis, despite ceftazidime for Escherichia coli and Pseudomonas peritonitis. 2. SHELBY superimposed on severe polycystic renal disease with liver complications , and intense ascites. Now on hemodialysis. 3. Resolved respiratory failure. 4. Recent diarrhea, now improved. 5. Nonsustained superventricular tachycardia-stable without arrhythmias over the last 24 hours. 6. Hyperkalemia. 7. Microcytic anemia. 8. Persistent hypotension. Recommendations: * Continue chest tube management as per CT surgery. * Continue Ceftazidime and monitoring of cultures. * Stool for C. difficile if any evidence of diarrhea. * Encourage oral intake. * Continue Neupogen and Renvela as per nephrology. * Morphine as needed for discomfort. * Out of bed to chair. * DVT prophylaxis at all times. * Continue telemetry monitoring. * Appreciate all consultants input. * Discussed plan of care with housestaff, patient and at bedside. I asked them to contact me should the patient's condition change or deteriorate.
[2017-04-01 08:52] LABS: ABSOLUTE BASOPHIL COUNT 0 /CUMM (0.0-0.2); ABSOLUTE EOSINOPHIL COUNT 0 /CUMM (0.0-0.7); ABSOLUTE GRANULOCYTE CT 15.8 /CUMM (1.4-6.5); ABSOLUTE LYMPH COUNT 0.5 /CUMM (1.2-3.4); ABSOLUTE MONOCYTE COUNT 1.4 /CUMM (0.10-0.60); BASOPHIL % 0 % (0.0-2.0); EOSINOPHIL % 0.1 % (0-5); MEAN CORPUSCULAR HGB 24.9 PG (27.0-31.0); MEAN CORPUSCULAR HGB CONC 31.7 G/DL (33.0-37.0); MEAN CORPUSCULAR VOLUME 78.6 FL (80.0-94.0); MEAN PLATELET VOLUME 11.4 FL (7.4-10.4); PLATELET COUNT 181 /CUMM (130-400); RBC DISTRIBUTION WIDTH 21.2 % (11.5-14.5); RED BLOOD CELL CT 3.31 /CUMM (4.70-6.10); WHITE BLOOD CELL COUNT 17.7 /CUMM (4.8-10.8)
[2017-04-01 10:10] LABS: GRANULOCYTE % 89.4 % (42.2-75.2)
--- NOTE | 2017-04-01 10:27 | PN- Infect Dx ---
Subjective Subjective: Afebrile. He continues to complain of nausea and anorexia with poor po intake, but he offers no other complaints. Objective Last 24 Hrs of Vital Signs/I&O Vital Signs Date Time Temp Pulse Resp B/P B/P Pulse O2 O2 Flow FiO2 Mean Ox Delivery Rate 04/01 0400 95 Room Air 04/01 0000 96 Room Air 04/01 0000 98.7 95 18 98/60 96 Room Air 03/31 2000 95 Room Air 03/31 1500 97.9 100 20 90/64 97 Room Air 03/31 1330 98.6 95 22 86/00 96 Room Air 03/31 1116 96 70/00 03/31 1115 96 70/00 03/31 1100 94 66/00 Intake & Output 04/01 1600 04/01 0800 04/01 0000 Intake Total 350 680 Output Total 10 Balance 340 680 Intake, Blood 100 Product Intake, IV 50 100 Intake, Oral 200 580 Number 0 Bowel Movements Output, Chest 10 Tube Drainage Output, Urine 0 Patient 134 lb 133 lb Weight Weight Standing Scale Standing Scale Measurement Method Physical Exam Other Physical Findings: He appears cachectic and weak but in no acute distress Neck dialysis catheter in the right IJ with no inflammation at the site Lungs are clear; pigtail catheter in the right chest with 25 mL output yesterday and 10 mL overnight Heart regular rhythm with no murmur Abdomen is distended, nontender with positive bowel sounds Extremities no cyanosis, clubbing or edema Results Last 24 Hours of Lab Results: Laboratory Tests 04/01 04/01 0810 0445 Chemistry Sodium (137 - 145 mmol/L) 141 143 Potassium (3.5 - 5.1 mmol/L) 4.2 4.3 Chloride (98 - 107 mmol/L) 101 102 Carbon Dioxide (22 - 30 mmol/L) 20 L 18 L Anion Gap (5 - 16) 21 H 23 H BUN (9 - 20 mg/dL) 77 H 74 H Creatinine (0.7 - 1.2 mg/dL) 5.1 *H 4.9 H Estimated GFR (>60 ml/min) 11 L 12 L BUN/Creatinine Ratio (7 - 25 %) 15.1 Glucose (65 - 99 mg/dL) 89 Calcium (8.4 - 10.2 mg/dL) 9.1 Phosphorus (2.5 - 4.5 mg/dL) 5.1 H Magnesium (1.6 - 2.3 mg/dL) 1.9 Total Bilirubin (0.2 - 1.3 mg/dL) 1.3 AST (17 - 59 U/L) 15 L ALT (21 - 72 U/L) 29 Lactate Dehydrogenase (313 - 618 U/L) 351 Albumin (3.5 - 5.0 g/dL) 3.8 Cortisol AM Sample (4.46 - 22.7 ug/dL) 33.4 H Hematology CBC w Diff NO MAN DIFF REQ MAN DIFF ORDERED WBC (4.8 - 10.8 /CUMM) 17.7 H 17.3 H RBC (4.70 - 6.10 /CUMM) 3.31 L 3.61 L Hgb (14.0 - 18.0 G/DL) 8.2 L 8.7 L Hct (42 - 52 %) 26.0 L 28.4 L MCV (80.0 - 94.0 FL) 78.6 L 78.5 L MCH (27.0 - 31.0 PG) 24.9 L 24.2 L RDW (11.5 - 14.5 %) 21.2 H 22.0 H Plt Count (130 - 400 /CUMM) 181 180 MPV (7.4 - 10.4 FL) 11.4 H 11.8 H Gran % (42.2 - 75.2 %) 89.4 H Lymphocytes % (20.5 - 51.1 %) 2.7 L Monocytes % (1.7 - 9.3 %) 7.8 Eosinophils % (0 - 5 %) 0.1 Basophils % (0.0 - 2.0 %) 0 Absolute Granulocytes (1.4 - 6.5 /CUMM) 15.8 H Segmented Neutrophils (42.2 - 75.2 %) 94 H Absolute Lymphocytes (1.2 - 3.4 /CUMM) 0.5 L Lymphocytes (20.5 - 51.1 %) 3 L Monocytes (1.7 - 9.3 %) 2 Absolute Monocytes (0.10 - 0.60 /CUMM) 1.4 H Eosinophils (0 - 5.0 %) 1 Absolute Eosinophils (0.0 - 0.7 /CUMM) 0 Absolute Basophils (0.0 - 0.2 /CUMM) 0 Platelet Estimate (ADEQUATE) ADEQUATE Polychromasia 1+ Hypochromic-Microcytic 2+ Poikilocytosis 1+ Anisocytosis 1+ Microcytic Cells 1+ Ovalocytes 1+ PUBS MCHC (33.0 - 37.0 G/DL) 31.7 L 30.8 L Other Body Source Fld Total RBCs Counted (%) 100 03/31 03/31 03/31 1530 1530 1150 Hematology Lymphocytes (%) 4 18 % Normal PMNs (%) 65 51 Misc Hematology Test (%) 31 Other Body Source Fluid WBC (0 - 5 /CUMM) 402 H 561 H Fld Total RBCs Counted (0 /CUMM) 153 H 03790 H Fluid Glucose (mg/dL) 104 Fluid Total Protein (g/dL) 4.3 Fluid Albumin (g/dL) 2.5 Fluid LDH (U/L) 335 Fluid Amylase (U/L) < 30 Last 24 Hours of [place] Results: Blood cultures 2 March 30 negative Right pleural fluid culture March 30 negative Ascitic fluid culture March 31 negative Assessment/Plan Impression: Clinically stable, with temperatures remaining normal on Ceftazidime for Escherichia coli and Pseudomonas peritonitis secondary to a migrated Pleurex catheter, removed 10 days ago in the OR, with a persistent leukocytosis, which remains unexplained. The cell count of his ascitic fluid is markedly improved and pleural fluid is not suggestive of infection, with cultures so far negative. He continues on dialysis for worsening renal failure, possibly secondary to sepsis superimposed on his underlying polycystic kidney (and liver) disease. Suggestion: 1. 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 Continue Ceftazidime
--- NOTE | 2017-04-01 11:22 | PN- Nephrology ---
Assessment/Plan Assessment: SHELBY - Likely 2/2 ATN in the setting of volume depletion while on RAAS inhibition in addition to bacterial peritonitis. Currently dialysis dependent. Stage IV CKD - 2/2 polycystic kidney disease. Baseline SCr approx 2.5-3.0. Will need to monitor for recovery. If he does not recover renal function, may ultimately be ESRD. Peritonitis - Pseudomonas and E coli on fluid culture - on abx without recent positive cultures. WBC stabilized. Nausea/vomitting - DDx includes uremia for which he has been started on dialysis. Improving. Anemia - Some degree of iron deficiency although given degree of anemia and in the setting of active infection with rising WBC, would plan for just Epogen. Suggestion: -HD today - no fluid removal -Epogen 3000U TIW with HD (MWF) -Abx as per ID -Cont to monitor UOP and BMP for renal recovery Please call [phone] with ?'s Subjective Subjective: Pt seen and examined on dialysis No UOP Had 2L LVP yesterday Recent fluid cultures neg WBC stable at 17 Afebrile Objective Vital Signs and I&Os Vital Signs Date Time Temp Pulse Resp B/P B/P Pulse O2 O2 Flow FiO2 Mean Ox Delivery Rate 04/01 0400 95 Room Air 04/01 0000 96 Room Air 04/01 0000 98.7 95 18 98/60 96 Room Air 03/31 2000 95 Room Air 03/31 1500 97.9 100 20 90/64 97 Room Air 03/31 1330 98.6 95 22 86/00 96 Room Air Intake & Output 04/01 1600 04/01 0400 03/31 1600 03/31 0400 03/30 1600 03/30 0400 Intake Total 232 457 2455 750 410 460 Output Total 2024 23 350 Balance 340 680 -225 727 60 460 Intake, Blood 100 Product Intake, IV 50 100 1150 210 20 100 Intake, Oral 200 580 650 540 390 360 Number 0 0 0 0 Bowel Movements Output, Chest 10 25 23 50 Tube Drainage Output, 300 Dialysate Output, Other 2000 Output, Urine 0 0 0 0 Patient 134 lb 133 lb 133 lb 133 lb Weight Weight Standing Scale Standing Scale Standing Scale Standing Scale Measurement Method Physical Exam: Gen - cachectic, chronically ill appearing HEENT - supple CV - RRR, no m/r/g Chest - clear, no w/r/r Abd - distended, nontender Ext - no edema Neuro - AOX3, grossly nonfocal Access - CVC Current Medications: Current Medications Sig/Lola Start time Last Medication Dose Route Stop Time Status Admin Acetaminophen 325 MG Q4P PRN 03/21 2115 AC 03/26 PO 1707 Albumin Human 25 GM ONCE ONE 04/01 0800 DC IV 04/01 0801 Albumin Human 25 GM ONCE ONE 03/31 1530 DC IV 03/31 1531 Albumin Human 25 GM Q8 03/24 2200 AC 04/01 IV 0511 Alteplase, 2 MG ONCE ONE 03/31 1615 DC Recombinant IPL 03/31 1616 Ceftazidime 1,000 MG Q24H 03/27 0800 AC 03/31 IV 1005 Desvenlafaxine 50 MG MoWeFr@1300 03/30 1300 AC 03/30 Succinate PO 1810 Epoetin Bryan 3,000 UNIT 03/30 1000 AC 03/30 IV 1035 Heparin Sodium 5,000 UNIT Q8 03/28 1444 AC 04/01 (Porcine) SC 0605 Metoprolol Tartrate 6.25 MG BID 03/25 2200 DC 03/29 PO 2158 Morphine Sulfate 2 MG Q4P PRN 03/21 2100 AC 03/30 IV 1819 Multivitamins 1 TAB 1700 03/25 1700 AC 03/31 PO 1738 Omeprazole 40 MG DAILY AC 03/25 1648 AC 04/01 PO 0605 Ondansetron HCl 4 MG Q6-PRN PRN 03/30 1300 DC 03/30 IV 2254 Promethazine HCl 12.5 MG Q4P PRN 03/31 1745 AC 03/31 IV 04/07 1744 2343 Sevelamer Carbonate 1,600 MG WITH MEALS 03/24 1700 AC 03/31 PO 1736 Sodium Chloride 500 ML BOLUS ONE 04/01 0815 CAN IV 04/01 0914 Sodium Chloride 500 ML BOLUS ONE 03/31 1300 DC 03/31 IV 03/31 1359 1330 Verapamil HCl 180 MG DAILY 03/25 0745 AC 03/29 PO 0934 Results Pertinent Lab Results: Laboratory Tests 04/01 04/01 0810 0445 Chemistry Sodium (137 - 145 mmol/L) 141 143 Potassium (3.5 - 5.1 mmol/L) 4.2 4.3 Chloride (98 - 107 mmol/L) 101 102 Carbon Dioxide (22 - 30 mmol/L) 20 L 18 L Anion Gap (5 - 16) 21 H 23 H BUN (9 - 20 mg/dL) 77 H 74 H Creatinine (0.7 - 1.2 mg/dL) 5.1 *H 4.9 H Estimated GFR (>60 ml/min) 11 L 12 L BUN/Creatinine Ratio (7 - 25 %) 15.1 Glucose (65 - 99 mg/dL) 89 Calcium (8.4 - 10.2 mg/dL) 9.1 Phosphorus (2.5 - 4.5 mg/dL) 5.1 H Magnesium (1.6 - 2.3 mg/dL) 1.9 Total Bilirubin (0.2 - 1.3 mg/dL) 1.3 AST (17 - 59 U/L) 15 L ALT (21 - 72 U/L) 29 Lactate Dehydrogenase (313 - 618 U/L) 351 Albumin (3.5 - 5.0 g/dL) 3.8 Cortisol AM Sample (4.46 - 22.7 ug/dL) 33.4 H Hematology CBC w Diff NO MAN DIFF REQ MAN DIFF ORDERED WBC (4.8 - 10.8 /CUMM) 17.7 H 17.3 H RBC (4.70 - 6.10 /CUMM) 3.31 L 3.61 L Hgb (14.0 - 18.0 G/DL) 8.2 L 8.7 L Hct (42 - 52 %) 26.0 L 28.4 L MCV (80.0 - 94.0 FL) 78.6 L 78.5 L MCH (27.0 - 31.0 PG) 24.9 L 24.2 L RDW (11.5 - 14.5 %) 21.2 H 22.0 H Plt Count (130 - 400 /CUMM) 181 180 MPV (7.4 - 10.4 FL) 11.4 H 11.8 H Gran % (42.2 - 75.2 %) 89.4 H Lymphocytes % (20.5 - 51.1 %) 2.7 L Monocytes % (1.7 - 9.3 %) 7.8 Eosinophils % (0 - 5 %) 0.1 Basophils % (0.0 - 2.0 %) 0 Absolute Granulocytes (1.4 - 6.5 /CUMM) 15.8 H Segmented Neutrophils (42.2 - 75.2 %) 94 H Absolute Lymphocytes (1.2 - 3.4 /CUMM) 0.5 L Lymphocytes (20.5 - 51.1 %) 3 L Monocytes (1.7 - 9.3 %) 2 Absolute Monocytes (0.10 - 0.60 /CUMM) 1.4 H Eosinophils (0 - 5.0 %) 1 Absolute Eosinophils (0.0 - 0.7 /CUMM) 0 Absolute Basophils (0.0 - 0.2 /CUMM) 0 Platelet Estimate (ADEQUATE) ADEQUATE Polychromasia 1+ Hypochromic-Microcytic 2+ Poikilocytosis 1+ Anisocytosis 1+ Microcytic Cells 1+ Ovalocytes 1+ PUBS MCHC (33.0 - 37.0 G/DL) 31.7 L 30.8 L Other Body Source Fld Total RBCs Counted (%) 100 03/31 03/31 03/31 1530 1530 1150 Hematology Lymphocytes (%) 4 18 % Normal PMNs (%) 65 51 Misc Hematology Test (%) 31 Other Body Source Fluid WBC (0 - 5 /CUMM) 402 H 561 H Fld Total RBCs Counted (0 /CUMM) 153 H 43476 H Fluid Glucose (mg/dL) 104 Fluid Total Protein (g/dL) 4.3 Fluid Albumin (g/dL) 2.5 Fluid LDH (U/L) 335 Fluid Amylase (U/L) < 30 03/31 03/30 0350 0505 Chemistry Sodium (137 - 145 mmol/L) 145 144 Potassium (3.5 - 5.1 mmol/L) 4.1 4.8 Chloride (98 - 107 mmol/L) 102 102 Carbon Dioxide (22 - 30 mmol/L) 21 L 17 L Anion Gap (5 - 16) 23 H 26 H BUN (9 - 20 mg/dL) 52 H 83 H Creatinine (0.7 - 1.2 mg/dL) 4.1 H 5.0 H Estimated GFR (>60 ml/min) 15 L 12 L Glucose (65 - 99 mg/dL) 111 H 103 H Calcium (8.4 - 10.2 mg/dL) 9.5 9.3 Phosphorus (2.5 - 4.5 mg/dL) 4.4 4.8 H Magnesium (1.6 - 2.3 mg/dL) 1.9 2.0 Total Bilirubin (0.2 - 1.3 mg/dL) 1.4 H 1.3 AST (17 - 59 U/L) 14 L 21 ALT (21 - 72 U/L) 27 28 Albumin (3.5 - 5.0 g/dL) 4.4 4.5 Coagulation PT (9.4 - 12.5 SEC) 16.9 H INR (0.90 - 1.17) 1.62 H Hematology CBC w Diff MAN DIFF ORDERED MAN DIFF ORDERED WBC (4.8 - 10.8 /CUMM) 15.7 H 16.6 H RBC (4.70 - 6.10 /CUMM) 3.68 L 4.17 L Hgb (14.0 - 18.0 G/DL) 9.0 L 10.1 L Hct (42 - 52 %) 28.7 L 32.5 L MCV (80.0 - 94.0 FL) 78.1 L 78.0 L MCH (27.0 - 31.0 PG) 24.6 L 24.2 L RDW (11.5 - 14.5 %) 21.0 H 20.5 H Plt Count (130 - 400 /CUMM) 189 201 MPV (7.4 - 10.4 FL) 11.5 H 11.2 H Gran % (42.2 - 75.2 %) 88.2 H 86.5 H Lymphocytes % (20.5 - 51.1 %) 3.4 L 5.8 L Monocytes % (1.7 - 9.3 %) 8.1 7.2 Eosinophils % (0 - 5 %) 0.3 0.5 Basophils % (0.0 - 2.0 %) 0 0 Absolute Granulocytes (1.4 - 6.5 /CUMM) 13.9 H 14.4 H Segmented Neutrophils (42.2 - 75.2 %) 87 H 89 H Absolute Lymphocytes (1.2 - 3.4 /CUMM) 0.5 L 1.0 L Lymphocytes (20.5 - 51.1 %) 6 L 3 L Monocytes (1.7 - 9.3 %) 7 7 Absolute Monocytes (0.10 - 0.60 /CUMM) 1.3 H 1.2 H Eosinophils (0 - 5.0 %) 1 Absolute Eosinophils (0.0 - 0.7 /CUMM) 0 0.1 Absolute Basophils (0.0 - 0.2 /CUMM) 0 0 Nucleated RBCs (0.0 - 0.0 /100WBC) 2 H Platelet Estimate (ADEQUATE) ADEQUATE ADEQUATE Polychromasia 1+ 1+ Hypochromic-Microcytic 2+ 1+ Poikilocytosis 1+ Anisocytosis 1+ 1+ Microcytic Cells 1+ 1+ Target Cells 1+ RARE Ovalocytes 1+ [place] Cells RARE Elliptocytes FEW PUBS MCHC (33.0 - 37.0 G/DL) 31.5 L 31.0 L Other Body Source Fld Total RBCs Counted (%) 100 Imaging/Other Studies: EXAM TYPE: US - US-COMPLETE ABDOMEN EXAMINATION: US ABDOMEN COMPLETE CLINICAL INFORMATION: Ascites, peritonitis. History of prior catheter associated infection.. COMPARISON: CT scan of the abdomen and pelvis dated 03/21/2017. TECHNIQUE: Real-time imaging of the abdominal viscera. FINDINGS: No normal abdominal organ parenchyma is discernible from the numerous cystic structures which are present throughout the abdomen (refer to the CT study of 03/19/2017). No significant assessment is attainable. Free fluid is identified throughout the abdomen. IMPRESSION: Extensive cystic structures and free fluid present throughout the abdomen, without adequate evaluation of the abdominal organ structures.
[2017-04-01 12:00] VITALS: BP 90/66
--- NOTE | 2017-04-01 12:38 | PN- Cardiology ---
Subjective Subjective: Stable and unchanged. BP remains low. No further SVT. Objective Vital Signs and I&Os Vital Signs Date Time Temp Pulse Resp B/P B/P Pulse O2 O2 Flow FiO2 Mean Ox Delivery Rate 04/01 0400 95 Room Air 04/01 0000 96 Room Air 04/01 0000 98.7 95 18 98/60 96 Room Air 03/31 2000 95 Room Air 03/31 1500 97.9 100 20 90/64 97 Room Air 03/31 1330 98.6 95 22 86/00 96 Room Air Intake & Output 04/01 1600 04/01 0800 04/01 0000 03/31 1600 03/31 0800 03/31 0000 Intake Total 549 987 0495 150 750 Output Total 10 2025 0 23 Balance 340 680 -375 150 727 Intake, Blood 100 Product Intake, IV 50 100 1050 100 210 Intake, Oral 200 580 600 50 540 Number 0 0 0 0 Bowel Movements Output, Chest 10 25 0 23 Tube Drainage Output, Other 2000 Output, Urine 0 0 0 0 Patient 134 lb 133 lb Weight Weight Standing Scale Standing Scale Measurement Method Current Medications: Current Medications Sig/Lola Start time Last Medication Dose Route Stop Time Status Admin Acetaminophen 325 MG Q4P PRN 03/21 2115 AC 03/26 PO 1707 Albumin Human 25 GM ONCE ONE 04/01 0800 DC IV 04/01 0801 Albumin Human 25 GM ONCE ONE 03/31 1530 DC IV 03/31 1531 Albumin Human 25 GM Q8 03/24 2200 AC 04/01 IV 0511 Alteplase, 2 MG ONCE ONE 03/31 1615 DC Recombinant IPL 03/31 1616 Ceftazidime 1,000 MG Q24H 03/27 0800 AC 03/31 IV 1005 Desvenlafaxine 50 MG MoWeFr@1300 03/30 1300 AC 03/30 Succinate PO 1810 Epoetin Bryan 3,000 UNIT 03/30 1000 AC 03/30 IV 1035 Heparin Sodium 5,000 UNIT Q8 03/28 1444 AC 04/01 (Porcine) SC 0605 Morphine Sulfate 2 MG Q4P PRN 03/21 2100 AC 03/30 IV 1819 Multivitamins 1 TAB 1700 03/25 1700 AC 03/31 PO 1738 Omeprazole 40 MG DAILY AC 03/25 1648 AC 04/01 PO 0605 Ondansetron HCl 4 MG Q6-PRN PRN 03/30 1300 DC 03/30 IV 2254 Promethazine HCl 12.5 MG Q4P PRN 03/31 1745 AC 03/31 IV 04/07 1744 2343 Sevelamer Carbonate 1,600 MG WITH MEALS 03/24 1700 AC 03/31 PO 1736 Sodium Chloride 500 ML BOLUS ONE 04/01 0815 CAN IV 04/01 0914 Sodium Chloride 500 ML BOLUS ONE 03/31 1300 DC 03/31 IV 03/31 1359 1330 Verapamil HCl 180 MG DAILY 03/25 0745 AC 03/29 PO 0934 Results Last 48 Hrs of Labs/Mics: Laboratory Tests 04/01/17 0810: Anion Gap 21 H, Estimated GFR 11 L, BUN/Creatinine Ratio 15.1, Lactate Dehydrogenase 351, CBC w Diff NO MAN DIFF REQ, RBC 3.31 L, MCV 78.6 L, MCH 24.9 L, RDW 21.2 H, MPV 11.4 H, Gran % 89.4 H, Lymphocytes % 2.7 L, Monocytes % 7.8, Eosinophils % 0.1, Basophils % 0, Absolute Granulocytes 15.8 H , Absolute Lymphocytes 0.5 L, Absolute Monocytes 1.4 H, Absolute Eosinophils 0 , Absolute Basophils 0, PUBS MCHC 31.7 L 04/01/17 0445: Anion Gap 23 H, Estimated GFR 12 L, Glucose 89, Calcium 9.1, Phosphorus 5.1 H , Magnesium 1.9, Total Bilirubin 1.3, AST 15 L, ALT 29, Albumin 3.8, Cortisol AM Sample 33.4 H, CBC w Diff MAN DIFF ORDERED, RBC 3.61 L, MCV 78.5 L, MCH 24.2 L, RDW 22.0 H, MPV 11.8 H, Segmented Neutrophils 94 H, Lymphocytes 3 L , Monocytes 2, Eosinophils 1, Platelet Estimate ADEQUATE, Polychromasia 1+, Hypochromic-Microcytic 2+, Poikilocytosis 1+, Anisocytosis 1+, Microcytic Cells 1+, Ovalocytes 1+, PUBS MCHC 30.8 L, Fld Total RBCs Counted 100 03/31/17 1530: Fluid WBC 402 H, Fld Total RBCs Counted 153 H 03/31/17 1530: Lymphocytes 4, % Normal PMNs 65, Misc Hematology Test , Fluid Glucose 104, Fluid Total Protein 4.3, Fluid Albumin 2.5, Fluid LDH 335, Fluid Amylase < 30 03/31/17 1150: Lymphocytes 18, % Normal PMNs 51, Misc Hematology Test 31, Fluid WBC 561 H, Fld Total RBCs Counted 44570 H 03/31/17 0350: Anion Gap 23 H, Estimated GFR 15 L, Glucose 111 H, Calcium 9.5, Phosphorus 4.4, Magnesium 1.9, Total Bilirubin 1.4 H, AST 14 L, ALT 27, Albumin 4.4, PT 16.9 H, INR 1.62 H, CBC w Diff MAN DIFF ORDERED, RBC 3.68 L, MCV 78.1 L, MCH 24.6 L, RDW 21.0 H, MPV 11.5 H, Gran % 88.2 H, Lymphocytes % 3.4 L, Monocytes % 8.1, Eosinophils % 0.3, Basophils % 0, Absolute Granulocytes 13.9 H , Segmented Neutrophils 87 H, Absolute Lymphocytes 0.5 L, Lymphocytes 6 L, Monocytes 7, Absolute Monocytes 1.3 H, Absolute Eosinophils 0, Absolute Basophils 0, Platelet Estimate ADEQUATE, Polychromasia 1+, Hypochromic- Microcytic 2+, Anisocytosis 1+, Microcytic Cells 1+, Target Cells 1+, Ahsan Cells RARE, PUBS MCHC 31.5 L Assessment/Plan Assessment/Plan Assessment: 1. Nonsustained superventricular tachycardia-stable with no significant arrhythmias over the last 24 hours. Brief episodes of non sustained SVT noted. 2. Ascites with SBP vs Catheter-associated Peritonitis 3. Acute on chronic renal insufficiency with polycystic kidneys 4. Polycystic liver disease 5. Hyperkalemia 6. Microcytic anemia 7. Persistent hypotension Recommendations: -continue as per the ICU team. Continue telemetry? Yes
[2017-04-01 17:00] VITALS: BP 102/56
--- NOTE | 2017-04-01 17:05 | PN- Psychiatry ---
Assessment/Plan Impression: The patient's supportive is present, and reports that he was feeling a little better yesterday. He had hemodialysis today, and is feeling weak. He is tolerating the desvenlafaxine/Pristiq well so far. We hope he will feel some improvement in his depression within the next week, or two, although it may take approx. 6 weeks to have full effect. Suggestion: 1. Continue desvenlaxaine 50 mg PO every 48 hours after hemodialysis, if possible. Currently ordered as Tuesday, Tuesday and Tuesday at 1300. We will visit again on 04/04/17. 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. Subjective Subjective: Alert, oriented to person, place, month, year. He made a joke about being in another hospital, before supplying the correct answer. He endorses feelings of depression. He denies AH or VH and presents no dieter delusions. He states that earlier, possibly last night, he thought he saw a person walking, but it was not real. He promises to report any visual disturbances to nursing. He denies suicidal or homicidal ideation. Review of Systems Neurological/Psychological: Reports: depressed. Objective Last 24 Hrs of Vital Signs/I&O Vital Signs Date Time Temp Pulse Resp B/P B/P Pulse O2 O2 Flow FiO2 Mean Ox Delivery Rate 04/01 1000 110 72/00 04/01 0400 95 Room Air 04/01 0000 96 Room Air 04/01 0000 98.7 95 18 98/60 96 Room Air 03/31 2000 95 Room Air Intake & Output 04/01 1600 04/01 0800 04/01 0000 Intake Total 350 680 Output Total 10 Balance 340 680 Intake, Blood 100 Product Intake, IV 50 100 Intake, Oral 200 580 Number 0 Bowel Movements Output, Chest 10 Tube Drainage Output, Urine 0 Patient 134 lb 133 lb Weight Weight Standing Scale Standing Scale Measurement Method Physical Exam: Not performed. Physical Exam General Appearance: awake, lethargic, thin Neurologic/Psychiatric: awake, depressed affect Current Medications: Current Medications Sig/Lola Start time Last Medication Dose Route Stop Time Status Admin Acetaminophen 325 MG Q4P PRN 03/21 2115 AC 03/26 PO 1707 Albumin Human 25 GM ONCE ONE 04/01 0800 DC 04/01 IV 04/01 0801 0830 Albumin Human 25 GM Q8 03/24 2200 AC 04/01 IV 1508 Ceftazidime 1,000 MG Q24H 03/27 0800 AC 04/01 IV 1130 Desvenlafaxine 50 MG MoWeFr@1300 03/30 1300 AC 04/01 Succinate PO 1450 Epoetin Bryan 3,000 UNIT 03/30 1000 AC 03/30 IV 1035 Heparin Sodium 5,000 UNIT Q8 03/28 1444 AC 04/01 (Porcine) SC 1507 Morphine Sulfate 2 MG Q4P PRN 03/21 2100 AC 03/30 IV 1819 Multivitamins 1 TAB 1700 03/25 1700 AC 03/31 PO 1738 Omeprazole 40 MG DAILY AC 03/25 1648 AC 04/01 PO 0605 Ondansetron HCl 4 MG Q6-PRN PRN 03/30 1300 DC 03/30 IV 2254 Promethazine HCl 12.5 MG Q4P PRN 03/31 1745 AC 04/01 IV 04/07 1744 1506 Sevelamer Carbonate 1,600 MG WITH MEALS 03/24 1700 AC 04/01 PO 1400 Sodium Chloride 500 ML BOLUS ONE 04/01 0815 CAN IV 04/01 0914 Verapamil HCl 180 MG DAILY 03/25 0745 AC 03/29 PO 0934 Results Last 24 Hrs of Labs/Mics: Laboratory Tests 04/01 04/01 1230 1140 Chemistry Sodium (137 - 145 mmol/L) 144 Potassium (3.5 - 5.1 mmol/L) 3.4 L Chloride (98 - 107 mmol/L) 101 Carbon Dioxide (22 - 30 mmol/L) 26 Anion Gap (5 - 16) 17 H BUN (9 - 20 mg/dL) 21 H Creatinine (0.7 - 1.2 mg/dL) 1.6 H Estimated GFR (>60 ml/min) 43 L BUN/Creatinine Ratio (7 - 25 %) 13.1 Miscellaneous Phlebotomy Draw Site THORACENTESIS Other Body Source Pleural pH (PH) 7.25 04/01 04/01 0810 0445 Chemistry Sodium (137 - 145 mmol/L) 141 143 Potassium (3.5 - 5.1 mmol/L) 4.2 4.3 Chloride (98 - 107 mmol/L) 101 102 Carbon Dioxide (22 - 30 mmol/L) 20 L 18 L Anion Gap (5 - 16) 21 H 23 H BUN (9 - 20 mg/dL) 77 H 74 H Creatinine (0.7 - 1.2 mg/dL) 5.1 *H 4.9 H Estimated GFR (>60 ml/min) 11 L 12 L BUN/Creatinine Ratio (7 - 25 %) 15.1 Glucose (65 - 99 mg/dL) 89 Calcium (8.4 - 10.2 mg/dL) 9.1 Phosphorus (2.5 - 4.5 mg/dL) 5.1 H Magnesium (1.6 - 2.3 mg/dL) 1.9 Total Bilirubin (0.2 - 1.3 mg/dL) 1.3 AST (17 - 59 U/L) 15 L ALT (21 - 72 U/L) 29 Lactate Dehydrogenase (313 - 618 U/L) 351 Albumin (3.5 - 5.0 g/dL) 3.8 Cortisol AM Sample (4.46 - 22.7 ug/dL) 33.4 H Hematology CBC w Diff NO MAN DIFF REQ MAN DIFF ORDERED WBC (4.8 - 10.8 /CUMM) 17.7 H 17.3 H RBC (4.70 - 6.10 /CUMM) 3.31 L 3.61 L Hgb (14.0 - 18.0 G/DL) 8.2 L 8.7 L Hct (42 - 52 %) 26.0 L 28.4 L MCV (80.0 - 94.0 FL) 78.6 L 78.5 L MCH (27.0 - 31.0 PG) 24.9 L 24.2 L RDW (11.5 - 14.5 %) 21.2 H 22.0 H Plt Count (130 - 400 /CUMM) 181 180 MPV (7.4 - 10.4 FL) 11.4 H 11.8 H Gran % (42.2 - 75.2 %) 89.4 H Lymphocytes % (20.5 - 51.1 %) 2.7 L Monocytes % (1.7 - 9.3 %) 7.8 Eosinophils % (0 - 5 %) 0.1 Basophils % (0.0 - 2.0 %) 0 Absolute Granulocytes (1.4 - 6.5 /CUMM) 15.8 H Segmented Neutrophils (42.2 - 75.2 %) 94 H Absolute Lymphocytes (1.2 - 3.4 /CUMM) 0.5 L Lymphocytes (20.5 - 51.1 %) 3 L Monocytes (1.7 - 9.3 %) 2 Absolute Monocytes (0.10 - 0.60 /CUMM) 1.4 H Eosinophils (0 - 5.0 %) 1 Absolute Eosinophils (0.0 - 0.7 /CUMM) 0 Absolute Basophils (0.0 - 0.2 /CUMM) 0 Platelet Estimate (ADEQUATE) ADEQUATE Polychromasia 1+ Hypochromic-Microcytic 2+ Poikilocytosis 1+ Anisocytosis 1+ Microcytic Cells 1+ Ovalocytes 1+ PUBS MCHC (33.0 - 37.0 G/DL) 31.7 L 30.8 L Other Body Source Fld Total RBCs Counted (%) 100
--- NOTE | 2017-04-01 17:22 | PN- Thoracic Surgery ---
Subjective Subjective: Sleeping this afternoon. He gives no respiratory complaints. Paracentesis done yesterday with decompression of his abdomen. Objective Vital Signs and I&Os Vital Signs Date Time Temp Pulse Resp B/P B/P Pulse O2 O2 Flow FiO2 Mean Ox Delivery Rate 04/01 1000 110 72/00 04/01 0400 95 Room Air 04/01 0000 96 Room Air 04/01 0000 98.7 95 18 98/60 96 Room Air 03/31 2000 95 Room Air Intake & Output 04/01 1600 04/01 0800 04/01 0000 03/31 1600 03/31 0800 03/31 0000 Intake Total 282 173 6384 150 750 Output Total 10 2025 0 23 Balance 340 680 -375 150 727 Intake, Blood 100 Product Intake, IV 50 100 1050 100 210 Intake, Oral 200 580 600 50 540 Number 0 0 0 0 Bowel Movements Output, Chest 10 25 0 23 Tube Drainage Output, Other 2000 Output, Urine 0 0 0 0 Patient 134 lb 133 lb Weight Weight Standing Scale Standing Scale Measurement Method Physical Exam: Breath sounds clear full bilaterally. The pleural catheter has minimal drainage over the last 24 hours. Results Recent Imaging Studies: Previous chest x-rays showed no pleural effusion on the right side. Assessment/Plan Assessment/Plan Fluid output from tube is minimal. I spoke with Dr. Corey and we will leave the tube in place over the weekend. If there is continued minimal drainage we can remove the tube early next week and follow the patient clinically.
--- NOTE | 2017-04-01 23:01 | Event Note ---
Event Note Event Note: Around 10:00 PM patient's blood pressure was noted to be running low in the 60/ doppler mmhg range. After bolus with NS 500 CC and 25 g albumin his blood pressure only improved transiently to 80/60 mmhg befor dropping again to 65/40 mmhg. Patient was discussed with attending Dr. Moreland who recommended pressor support with Levophed if blood pressure remained low. At the same time, patient was complaining of vague epigastric discomfort that involved his chest. A stat EKG done showed sinus rhthym with no ST changes compared to previous EKGs. Stat Troponin done was negative. Physical exam -Elderly man, cachectic and weak but in no acute distress -Neck dialysis catheter in the right IJ with no inflammation at the site -Lungs are clear; pigtail catheter in the right chest -Heart regular rhythm with no murmur -Abdomen: distended, nontender, positive fluid thrill with positive bowel sounds -Extremities no cyanosis, clubbing or edema Assessment 1. Catheter-associated Peritonitis 2. Hypotension Plan - Start levophed at 5 mcg/hr peripherally and titrate to MAP of 60 mmhg - Surgical PA consulted for central line insertion and continued pressor support (patient's current dialysis tunneled catheter cannot be used for infusion as per [place] Policy) -If blood pressure normalizes can wean off pressors and bolus normal saline and albumin as needed
[2017-04-01 23:39] VITALS: BP 100/64
[2017-04-02 05:54] LABS: ABSOLUTE BASOPHIL COUNT 0 /CUMM (0.0-0.2); ABSOLUTE EOSINOPHIL COUNT 0 /CUMM (0.0-0.7); ABSOLUTE GRANULOCYTE CT 12.8 /CUMM (1.4-6.5); ABSOLUTE LYMPH COUNT 0.5 /CUMM (1.2-3.4); ABSOLUTE MONOCYTE COUNT 1.6 /CUMM (0.10-0.60); BASOPHIL % 0.1 % (0.0-2.0); EOSINOPHIL % 0.1 % (0-5); GRANULOCYTE % 86.1 % (42.2-75.2); HEMATOCRIT 26.4 % (42-52); MEAN CORPUSCULAR HGB 24.5 PG (27.0-31.0); MEAN CORPUSCULAR HGB CONC 30.9 G/DL (33.0-37.0); MEAN CORPUSCULAR VOLUME 79.2 FL (80.0-94.0); MEAN PLATELET VOLUME 11.9 FL (7.4-10.4); PLATELET COUNT 149 /CUMM (130-400); RBC DISTRIBUTION WIDTH 21.8 % (11.5-14.5); RED BLOOD CELL CT 3.33 /CUMM (4.70-6.10); WHITE BLOOD CELL COUNT 14.8 /CUMM (4.8-10.8)
[2017-04-02 08:00] VITALS: BP 98/64
--- NOTE | 2017-04-02 08:20 | PN- Resident CRCU ---
Subjective HPI/CRCU Issues: Catheter-associated Peritonitis SHELBY on CKD on HD Nonsustained SVT - resolved Hyperkalemia - resolved Acute hypoxic respiratory failure - resolved 24 Hour Events: Patient became hypotensive overnight. He was administered norepinephrine temporarily via peripheral IV and then discontinued as his blood pressure became stable. The patient was inquired about the possibility for a central line for pressor support if needed. However, he refuses a central line at this time. Objective Vital Signs & I&O Last 8 Hrs of Vitals and I&O: . Exam General Appearance: alert, awake, mild distress, thin Head: atraumatic, normal appearance Neck: normal inspection, supple Respiratory: normal breath sounds, chest non-tender, lungs clear Cardiovascular: regular rate/rhythm Gastrointestinal: soft, non-tender Extremities: no edema Cranial Nerves: normal hearing, normal speech Skin: normal color Skin Temp/Moisture Exam: Warm/Dry Sepsis Skin Exam (color): Normal for Ethnicity Current Medications: Current Medications Sig/Lola Start time Last Medication Dose Route Stop Time Status Admin Acetaminophen 650 MG Q4P PRN 04/01 1815 AC PO Acetaminophen 325 MG Q4P PRN 03/21 2115 DC 03/26 PO 1707 Albumin Human 25 GM Q8 03/24 2200 AC 04/02 IV 0614 Ceftazidime 1,000 MG Q24H 03/27 0800 AC 04/02 IV 0736 Desvenlafaxine 50 MG MoWeFr@1300 03/30 1300 AC 04/01 Succinate PO 1450 Epoetin Bryan 3,000 UNIT 03/30 1000 AC 03/30 IV 1035 Glycerin 2 SPRAY Q2P PRN 04/01 2045 AC PO Heparin Sodium 5,000 UNIT Q8 03/28 1444 AC 04/02 (Porcine) SC 0615 Morphine Sulfate 2 MG Q4P PRN 03/21 2100 AC 04/01 IV 1730 Multivitamins 1 TAB 1700 03/25 1700 AC 04/01 PO 1756 Non-Formulary 0 SEE ADMIN CRITERIA 04/02 1100 UNVr Medication ANY Norepinephrine 4 MG Q24H 04/01 2245 AC 04/01 Sodium Chloride 250 ML IV 2247 Norepinephrine 4 MG .STK-MED ONE 04/01 2244 DC IV 04/01 2245 Omeprazole 40 MG DAILY AC 03/25 1648 AC 04/02 PO 0615 Promethazine HCl 12.5 MG Q4P PRN 03/31 1745 AC 04/01 IV 04/07 1744 2159 Sevelamer Carbonate 1,600 MG WITH MEALS 03/24 1700 AC 04/02 PO 0736 Sodium Chloride 500 ML BOLUS ONE 04/01 2100 DC 04/01 IV 04/01 2159 2110 Verapamil HCl 180 MG DAILY 03/25 0745 AC 03/29 PO 0934 Impression/Plan Impression/Problem List Impression: Mr. Tijerina is a 66 yo m with a PMH of PKD, Polycystic liver disease, portal HTN , HTN, HLD, umbilical hernia repair, colon ademona, GERD who presented to the ED with NVD with progressively worsened abdominal distention from ascitic fluid. Assessment and Plan: Hypotension: * His blood pressure has been running on the low side. * He received Levophed for a few hours peripherally last night. * Currently refuses for a central line placement for administeration of pressors. * Will give bolus if necessary to maintain his blood pressure. Nonsustained SVT - resolved Patient experienced 2 episodes of SVT with HR up to 180s. He was asymptomatic during both events. During the first event he was administered IV Metoprolol 5 mg. The second event spontaneously resolved and did not require medical management * Continue Metoprolol 6.25 mg BID * Cardiology recommendations appreciated * Will administer Adenosine for any acute events * Patient to continue on tele monitoring for now. Acute Hypoxic Respiratory Failure s/p Pleurx Cath removal: Patient has a patent connection between abdominal cavity and pleural space 2/2 migrated indwelling catheter, leading to transfer of ascitic fluid to the pleural space. A pig tail was placed. As per Dr. Carson options are to watch and wait to see if spontaneously resolves vs surgical intervention. PA/Lateral CXR on 03/25 for pleural effusion demonstrated no significant pleural effusion or evidence of pneumothorax. ECHO demonstrated Aortic sclerosis is present with no valvular stenosis or insufficiency, a very small pericardial effusion, EF 55-60 % * Continue pigtail catheter drainage connected to water seal. * Surgery recommends to leave the catheter in place for now. If the connection does not seal on its own, the patient may require surgery. * His output through the Pleurx catheter has been very low which is suggestive that perhaps the connection is closing on its own. * TRC/nebs, oxygen supplementation PRN. Remains on room air. * CXR 03/29 showed no pleural effusion or acute abnormality. Catheter-associated Peritonitis: Patient had an indwelling pleural catheter placed in July 2016 for pleural effusion that migrated into the abdominal cavity. Considering that the patient's catheter was never removed it can be a possible source of infection. He had another catheter placed in the R lung that was eventually removed. CT abdomen/ pelvis on admission demonstrated the resolution of his R-side pleural effusion. He gets 1L of ascitic fluid drained from the migrated Pleurx catheter on MWF. Prior to coming to the hospital it was last drained on Tuesday by his visiting nurse. He had a diagnostic and therapeutic paracentesis performed. His ascitic fluid white count was 8222. Repeat paracentesis demonstrated a transudative ascitic fluid with SAAG > 1. His ascitic fluid culture grew GNR and he was started on Ceftazidime. Vancomycin was discontinued. * ID recommendations appreciated. * His white count is downtrending. * Blood cultures - pending * RUQ U/S demonstrated extensive cystic structures and free fluid present throughout the abdomen. * Had a diagnostic and therapeutic paracentesis 03/31. * Ascitic fluid studies not suggestive of SBP. * Will send for C.diff if he has diarrhea. * Continue Ceftazidime daily. * Continue IV albumin 25gm q8. * Metoclopramide discontinued to avoid EPS * No plans for surgical closure of the diaphargmatic connection. Will await as long as possible. SHELBY on CKD most likely 2/2 dehydration in the setting of his CKD from PKD: Patient is reported to have a baseline Cr of 2-3. His Cr initially eliceo on admission but has trended down. Patient had an Evin cath placed * Continue to monitor renal function * Continue IV Albumin 25 gm q8 * Nephrology recommendations appreciated * Dialysis M/W/F * Continue Epogen with dialysis. Depression: * Patient requested for a psych consult as he feels depressed. * Psych has suggested starting him on DesVenlafaxine 50mg daily. * Renal and GI have approved the use of the medication from their standpoint. However, recommend monitoring of LFTs while on the drug. * Patient is agreeable to start the medication. History of PKD, Polycystic liver disease: Patient reported he had an appt at [place] [facility] in which he was told he wouldn't receive a transplant until the resolution of his ascitic fluid. CT abd/pel demonstrated numerous cysts effectively replacing the normal hepatic and bilateral renal parenchyma Diet: Regular Diet with 2g K restriction. DVT Prophylaxis: ALPS Code Status: Full Problem List: 1. Polycystic liver disease 2. Polycystic kidney disease Pain Ratin Tomorrow's Labs & Rationales: CBC, ICU Bundle Plan DVT/Prophylaxis: mechanical
[2017-04-02 16:00] VITALS: BP 100/58
--- NOTE | 2017-04-02 18:11 | PN- Cardiology ---
Subjective Subjective: No specific complaints. Sinus rhythm. Transient hypotension last night requiring peripheral pressors briefly, but hemodynamically stable since that time. Objective Vital Signs and I&Os Vital Signs Date Time Temp Pulse Resp B/P B/P Pulse O2 O2 Flow FiO2 Mean Ox Delivery Rate 04/02 1200 95 Room Air 04/02 1050 99 100/60 04/02 0800 96 Room Air 04/02 0800 98.3 99 20 98/64 96 Room Air 04/02 0400 Room Air 04/02 0000 Room Air 04/01 2339 100.0 96 24 100/64 95 Room Air 04/01 2247 100 68/40 Intake & Output 04/02 1600 04/02 0800 04/02 0000 04/01 1600 04/01 0800 04/01 0000 Intake Total 256 1120 1000 350 680 Output Total 30 25 10 Balance 226 1120 975 340 680 Intake, Blood 100 Product Intake, 300 Dialysate Intake, IV 136 720 100 50 100 Intake, Oral 120 400 600 200 580 Number 0 Bowel Movements Output, Chest 30 25 10 Tube Drainage Output, Urine 0 Patient 132 lb 134 lb 133 lb Weight Weight Chair scale Standing Scale Standing Scale Measurement Method Physical Exam: Appears pale and cachectic, but in no acute distress Neck: dialysis catheter in the right IJ with no inflammation at the site Lungs: Clear to auscultation bilaterally. Pigtail catheter in the right chest. Heart: S1, S2 (regular) with no murmur gallop, or rub Abdomen: Distended, nontender with positive bowel sounds Extremities: No cyanosis, clubbing or edema Assessment/Plan Assessment/Plan [id number] w/ polycystic kidney/liver disease, ESRD on HD, paroxysmal nonsustained SVT responsive to adenosine. * Nonsustained superventricular tachycardia-stable with no significant arrhythmias over the last few days. Brief episodes of non sustained SVT noted. * Ascites with SBP vs Catheter-associated Peritonitis. * Acute on chronic renal insufficiency with polycystic kidneys. * Polycystic liver disease. * Hyperkalemia. * Microcytic anemia. * Persistent hypotension. Recommendations: * Continue all supportive measures. * Adenosine if recurrent significant episodes of SVT. * DVT prophylaxis. -continue as per the ICU team. Continue telemetry? Not applicable (In ICU.)
[2017-04-02 23:32] VITALS: BP 97/67
[2017-04-03 04:58] LABS: ABSOLUTE BASOPHIL COUNT 0 /CUMM (0.0-0.2); ABSOLUTE EOSINOPHIL COUNT 0 /CUMM (0.0-0.7); ABSOLUTE GRANULOCYTE CT 12.8 /CUMM (1.4-6.5); ABSOLUTE LYMPH COUNT 0.7 /CUMM (1.2-3.4); ABSOLUTE MONOCYTE COUNT 1.1 /CUMM (0.10-0.60); BASOPHIL % 0 % (0.0-2.0); EOSINOPHIL % 0.2 % (0-5); HEMATOCRIT 24.1 % (42-52); MEAN CORPUSCULAR HGB 25.1 PG (27.0-31.0); MEAN CORPUSCULAR VOLUME 78.4 FL (80.0-94.0); MEAN PLATELET VOLUME 12.3 FL (7.4-10.4); PLATELET COUNT 149 /CUMM (130-400); RBC DISTRIBUTION WIDTH 21.9 % (11.5-14.5); RED BLOOD CELL CT 3.08 /CUMM (4.70-6.10); WHITE BLOOD CELL COUNT 14.7 /CUMM (4.8-10.8)
[2017-04-03 05:30] LABS: GRANULOCYTE % 87.4 % (42.2-75.2)
[2017-04-03 08:00] VITALS: BP 92/64
--- NOTE | 2017-04-03 08:06 | PN- CRCU ---
Subjective HPI/Critical Care Issues: The patient remains awake and alert. His BP is in the 90's to 100's. He put out 100 ml out of his chest tube over the past 24 hours. He continues with dialysis Tuesday, Wednesdays and Tuesday. He is passing gas. He is ambulating to the commode. He continues to have poor oral intake. Objective Current Medications: Current Medications Sig/Lola Start time Last Medication Dose Route Stop Time Status Admin Acetaminophen 650 MG .STK-MED ONE 04/02 1415 DC PO 04/02 1416 Acetaminophen 650 MG Q4P PRN 04/01 1815 AC 04/02 PO 1415 Albumin Human 25 GM Q8 03/24 2200 AC 04/03 IV 0610 Ceftazidime 1,000 MG Q24H 03/27 0800 AC 04/02 IV 0736 Collagenase 1 BENEDICTO BID 04/02 1100 AC 04/02 TOP 2144 Desvenlafaxine 50 MG MoWeFr@1300 03/30 1300 AC 04/01 Succinate PO 1450 Epoetin Bryan 3,000 UNIT 03/30 1000 AC 03/30 IV 1035 Glycerin 2 SPRAY Q2P PRN 04/01 2045 AC PO Heparin Sodium 5,000 UNIT Q8 03/28 1444 AC 04/03 (Porcine) SC 0617 Morphine Sulfate 2 MG Q4P PRN 03/21 2100 AC 04/01 IV 1730 Multivitamins 1 TAB 17003/25 1700 AC 04/02 PO 1639 Norepinephrine 4 MG Q24H 04/01 2245 DC 04/01 Sodium Chloride 250 ML IV 2247 Omeprazole 40 MG DAILY AC 03/25 1648 AC 04/03 PO 0614 Promethazine HCl 12.5 MG Q4P PRN 03/31 1745 AC 04/01 IV 04/07 1744 2159 Sevelamer Carbonate 1,600 MG WITH MEALS 03/24 1700 AC 04/02 PO 1638 Verapamil HCl 180 MG DAILY 03/25 0745 AC 03/29 PO 0934 Exam General Appearance: no apparent distress, alert, awake, anxious, chronically ill Head: atraumatic, normal appearance Neck: supple Respiratory: no respiratory distress, quiet respiration, lungs clear Cardiovascular: regular rate/rhythm Abdomen: distended but soft, bowel sounds present Extremities: no edema Skin: intact, normal color, warm/dry Vital Signs & I&O Last 24 Hrs of Vitals and I&O: Vital Signs Date Time Temp Pulse Resp B/P B/P Pulse O2 O2 Flow FiO2 Mean Ox Delivery Rate 04/03 0403 100 04/02 2343 97 04/02 2332 98.6 88 16 97/67 97 Room Air 04/02 2000 98 04/02 1600 99.1 99 18 100/58 94 Room Air 04/02 1600 97 Room Air 04/02 1200 95 Room Air 04/02 1050 99 100/60 04/02 0800 96 Room Air 04/02 0800 98.3 99 20 98/64 96 Room Air Intake & Output 04/03 0800 04/03 0000 04/02 1600 Intake Total 150 340 360 Output Total 20 20 Balance 130 320 360 Intake, IV 100 120 Intake, Oral 150 240 240 Number 1 Bowel Movements Output, Chest 20 Tube Drainage Output, 20 Drainage Patient 133 lb Weight Results Last 24 Hrs of Lab Results: Laboratory Tests 04/03/17 0430: Anion Gap 22 H, Estimated GFR 13 L, Glucose 90, Calcium 9.1, Phosphorus 4.3, Magnesium 1.7, Total Bilirubin 2.0 H, AST 25, ALT 25, Albumin 4.0, CBC w Diff NO MAN DIFF REQ, RBC 3.08 L, MCV 78.4 L, MCH 25.1 L, RDW 21.9 H, MPV 12.3 H , Gran % 87.4 H, Lymphocytes % 4.8 L, Monocytes % 7.6, Eosinophils % 0.2, Basophils % 0, Absolute Granulocytes 12.8 H, Absolute Lymphocytes 0.7 L, Absolute Monocytes 1.1 H, Absolute Eosinophils 0, Absolute Basophils 0, PUBS MCHC 32.0 L Impression/Plan Impression/Plan Impression/Plan: 1. Leukocytosis, despite ceftazidime for Escherichia coli and Pseudomonas peritonitis. 2. SHELBY superimposed on severe polycystic renal disease with liver complications , and intense ascites. Now on hemodialysis. 3. Resolved respiratory failure. 4. Recent diarrhea, now improved. 5. Nonsustained superventricular tachycardia-stable without arrhythmias over the last 24 hours. 6. Hyperkalemia. 7. Microcytic anemia, without evidence of active bleeding. 8. Persistent hypotension. 9. Brief episodes of nonsustained supraventricular tachycardia, cardiology following. Recommendations: * Continue chest tube management as per CT surgery. * Continue Ceftazidime and monitoring of cultures. * Stool for C. difficile if any evidence of diarrhea. * Check a follow-up CBC at 5 PM today. Monitor for bleeding. * Check a PA and lateral chest x-ray today. * Encourage oral intake. * Continue IV albumin, Neupogen and Renvela as per nephrology. * Morphine as needed for discomfort. * Out of bed to chair/increase activity. * DVT prophylaxis at all times. * Continue telemetry monitoring. * Continue Zofran and Tigan for nausea. * Appreciate all consultants input. * Discussed plan of care with housestaff. I asked them to contact me should the patient's condition change or deteriorate.
--- NOTE | 2017-04-03 08:49 | PN- Resident CRCU ---
Subjective HPI/CRCU Issues: Catheter-associated Peritonitis SHELBY on CKD on HD Hypotension Nonsustained SVT - resolved Hyperkalemia - resolved Acute hypoxic respiratory failure - resolved 24 Hour Events: The patient remains awake and alert with stable blood pressure ranging from 90- 100 the last 24 hours and has not required any normal saline bolus since last 48 hours. His right chest tube drainage is 100 mL in last 24 hours. And I/O is 950 /100 in the last 24 hours. He had a hard bowel movement yesterday but denies abdominal pain or diarrhea. He is ambulating to the commode but has poor oral intake. He also complains of a dry and sore throat. Objective Vital Signs & I&O Last 8 Hrs of Vitals and I&O: Vital Signs Date Time Temp Pulse Resp B/P B/P Pulse O2 O2 Flow FiO2 Mean Ox Delivery Rate 04/03 0906 82/48 04/03 0800 98.6 90 25 92/64 96 Room Air 04/03 0403 100 04/02 2343 97 04/02 2332 98.6 88 16 97/67 97 Room Air 04/02 2000 98 04/02 1600 99.1 99 18 100/58 94 Room Air 04/02 1600 97 Room Air 04/02 1200 95 Room Air Exam General Appearance: alert, awake, cachetic, lethargic Head: atraumatic, normal appearance Ears, Nose, Throat: normal pharynx, hearing grossly normal, White patches on tongue Neck: normal inspection, supple Respiratory: normal breath sounds, chest non-tender, no respiratory distress, lungs clear, decreased breath sounds (In right lower lung zone), Pleurx catheter in situ in right chest wall Cardiovascular: regular rate/rhythm, normal peripheral pulses, No pedal edema Gastrointestinal: soft, non-tender, distention, Multiple cystic structures palpated in upper abdomen (hepatic and renal cysts) Extremities: no edema Cranial Nerves: normal hearing, normal speech, PERRL Skin: intact, normal color Skin Temp/Moisture Exam: Warm/Dry Sepsis Skin Exam (color): Normal for Ethnicity Evin Cath/Dialysis Site: Right IJ tunneled catheter Nutrition Nutrition: Regular diet Current Medications: Current Medications Sig/Lola Start time Last Medication Dose Route Stop Time Status Admin Acetaminophen 650 MG .STK-MED ONE 04/02 1415 DC PO 04/02 1416 Acetaminophen 650 MG Q4P PRN 04/01 1815 AC 04/02 PO 1415 Albumin Human 25 GM Q8 03/24 2200 AC 04/03 IV 0610 Benzocaine/Menthol 1 MYLES Q2P PRN 04/03 1100 AC PO Ceftazidime 1,000 MG Q24H 03/27 0800 AC 04/03 IV 0754 Collagenase 1 BENEDICTO BID 04/02 1100 AC 04/03 TOP 0906 Desvenlafaxine 50 MG MoWeFr@1300 03/30 1300 AC 04/01 Succinate PO 1450 Epoetin Bryan 3,000 UNIT 03/30 1000 AC 03/30 IV 1035 Glycerin 2 SPRAY Q2P PRN 04/01 2045 AC PO Heparin Sodium 5,000 UNIT Q8 03/28 1444 AC 04/03 (Porcine) SC 0617 Morphine Sulfate 2 MG Q4P PRN 03/21 2100 AC 04/01 IV 1730 Multivitamins 1 TAB 1700 03/25 1700 AC 04/02 PO 1639 Norepinephrine 4 MG Q24H 04/01 2245 DC 04/01 Sodium Chloride 250 ML IV 2247 Omeprazole 40 MG DAILY AC 03/25 1648 AC 04/03 PO 0614 Polyethylene Glycol 17 GM DAILY PRN 04/03 1100 AC PO Promethazine HCl 12.5 MG Q4P PRN 03/31 1745 AC 04/01 IV 04/07 1744 2159 Sevelamer Carbonate 1,600 MG WITH MEALS 03/24 1700 AC 04/03 PO 0754 Verapamil HCl 180 MG DAILY 03/25 0745 AC 03/29 PO 0934 Impression/Plan Impression/Problem List Impression: Mr. Tijerina is a 66 yo m with a PMH of PKD, Polycystic liver disease, portal HTN , HTN, HLD, umbilical hernia repair, colon ademona, GERD who presented to the ED with NVD, progressively worsened abdominal distention from ascitic fluid and hypotension and was subsequently diagnosed with Associated peritonitis complicated by a right chest Pleurx catheter that had migrated into his abdomen. Assessment and Plan: 1. Catheter-associated Peritonitis: Patient had an indwelling pleural catheter placed in July 2016 for pleural effusion that migrated into the abdominal cavity. Considering that the patient's catheter was never removed it can be a possible source of infection. He had another catheter placed in the R lung that was eventually removed. CT abdomen/ pelvis on admission demonstrated the resolution of his R-side pleural effusion. He gets 1L of ascitic fluid drained from the migrated Pleurx catheter on MWF. Prior to coming to the hospital it was last drained on Tuesday by his visiting nurse. He had a diagnostic and therapeutic paracentesis performed. His ascitic fluid white count was 8222. Repeat paracentesis demonstrated a transudative ascitic fluid with SAAG > 1. His ascitic fluid culture grew GNR and he was started on Ceftazidime. Vancomycin was discontinued. A RUQ U/S demonstrated extensive cystic structures and free fluid present throughout the abdomen. He had a diagnostic and therapeutic paracentesis on 03/31. Ascitic fluid studies not suggestive of SBP. * ID recommendations appreciated. * His white count is downtrending. * Blood cultures -no growth so far * Will send for C.diff if he has diarrhea. * Continue IV Ceftazidime * Continue IV albumin 25gm q8. * Continue IV Phenergan when necessary for nausea or vomiting. Metoclopramide discontinued to avoid EPS * No plans for surgical closure of the diaphargmatic connection. Will await as long as possible. 2. SHELBY on CKD most likely 2/2 dehydration in the setting of his CKD from PKD: Patient is reported to have a baseline Cr of 2-3. His Cr initially eliceo on admission but has trended down. Patient had an Evin cath placed * Continue to monitor renal function * Continue IV Albumin 25 gm q8 * Nephrology recommendations appreciated * Dialysis M/W/F * Continue Epogen with dialysis. 3. Hypotension: * His blood pressure appears to have stabilized over the last 24 hours and he has not required any fluid boluses or pressors. * We will monitor blood pressure closely and bolused with normal saline and albumin as needed to maintain map of 60 4. Nonsustained SVT - resolved Patient experienced 2 episodes of SVT with HR up to 180s. He was asymptomatic during both events. During the first event he was administered IV Metoprolol 5 mg. The second event spontaneously resolved and did not require medical management * Continue Metoprolol 6.25 mg BID * Cardiology recommendations appreciated * Will administer Adenosine for any acute events * Patient to continue on tele monitoring for now. 5. Acute Hypoxic Respiratory Failure s/p Pleurx Cath removal: Patient has a patent connection between abdominal cavity and pleural space 2/2 migrated indwelling catheter, leading to transfer of ascitic fluid to the pleural space. A pig tail was placed. As per Dr. Carson options are to watch and wait to see if spontaneously resolves vs surgical intervention. PA/Lateral CXR on 03/25 for pleural effusion demonstrated no significant pleural effusion or evidence of pneumothorax. ECHO demonstrated Aortic sclerosis is present with no valvular stenosis or insufficiency, a very small pericardial effusion, EF 55-60 % * Continue pigtail catheter drainage connected to water seal * His progress catheter drained 100 mL over the last 24 hours. His output through the Pleurx catheter has been very low which is suggestive that perhaps the connection is closing on its own * Surgery recommends to leave the catheter in place for now. If the connection does not seal on its own, the patient may require surgery. * TRC/nebs, oxygen supplementation PRN. Remains on room air. * CXR 03/29 showed no pleural effusion or acute abnormality. 6. Depression: * Patient requested for a psych consult as he feels depressed. * As per Psych we have started him on DesVenlafaxine 50mg daily * Renal and GI have approved the use of the medication from their standpoint. However, recommend monitoring of LFTs while on the drug and his transaminases have been within normal range 7. History of PKD, Polycystic liver disease: Patient reported he had an appt at [facility] in which he was told he wouldn't receive a transplant until the resolution of his ascitic fluid. CT abd/pel demonstrated numerous cysts effectively replacing the normal hepatic and bilateral renal parenchyma Diet: Regular Diet with 2g K restriction. DVT Prophylaxis: ALPS Code Status: Full Problem List: 1. Peritonitis 2. Ascites 3. Hydrothorax 4. Acute on chronic renal failure 5. Polycystic kidney disease 6. Polycystic liver disease Pain Ratin Tomorrow's Labs & Rationales: CBC for leukocytosis, anemia. ICU lab bundle for LFTs, electrolytes and k monitoring Plan DVT/Prophylaxis: mechanical
--- NOTE | 2017-04-03 10:17 | PN- Infect Dx ---
Subjective Subjective: Afebrile, with a temperature to 100.6 on the night before last. He means hypotensive, requiring transient pressors, given peripherally, on the night before last, after his blood pressure dropped to 68/40. He continues to complain of nausea with no complaints of abdominal pain or shortness of breath. Objective Last 24 Hrs of Vital Signs/I&O Vital Signs Date Time Temp Pulse Resp B/P B/P Pulse O2 O2 Flow FiO2 Mean Ox Delivery Rate 04/03 0906 82/48 04/03 0800 98.6 90 25 92/64 96 Room Air 04/03 0403 100 04/02 2343 97 04/02 2332 98.6 88 16 97/67 97 Room Air 04/02 2000 98 04/02 1600 99.1 99 18 100/58 94 Room Air 04/02 1600 97 Room Air 04/02 1200 95 Room Air 04/02 1050 99 100/60 Intake & Output 04/03 1600 04/03 0800 04/03 0000 Intake Total 150 340 Output Total 20 20 Balance 130 320 Intake, IV 100 Intake, Oral 150 240 Output, Chest 20 Tube Drainage Output, 20 Drainage Patient 133 lb Weight Physical Exam Other Physical Findings: He is weak and cachectic appearing but in no acute distress Neck dialysis catheter in the right IJ with no inflammation at the site Lungs are clear; pigtail catheter on the right with 30 mL output yesterday and 20 mL overnight Heart regular rhythm with no murmur Abdomen is distended, mildly tender on palpation, particularly on the right, with no guarding or rebound, with positive bowel sound Extremities no cyanosis, clubbing or edema Results Last 24 Hours of Lab Results: Laboratory Tests 04/03 0430 Chemistry Sodium (137 - 145 mmol/L) 142 Potassium (3.5 - 5.1 mmol/L) 4.2 Chloride (98 - 107 mmol/L) 101 Carbon Dioxide (22 - 30 mmol/L) 19 L Anion Gap (5 - 16) 22 H BUN (9 - 20 mg/dL) 70 H Creatinine (0.7 - 1.2 mg/dL) 4.5 H Estimated GFR (>60 ml/min) 13 L Glucose (65 - 99 mg/dL) 90 Calcium (8.4 - 10.2 mg/dL) 9.1 Phosphorus (2.5 - 4.5 mg/dL) 4.3 Magnesium (1.6 - 2.3 mg/dL) 1.7 Total Bilirubin (0.2 - 1.3 mg/dL) 2.0 H AST (17 - 59 U/L) 25 ALT (21 - 72 U/L) 25 Albumin (3.5 - 5.0 g/dL) 4.0 Hematology CBC w Diff NO MAN DIFF REQ WBC (4.8 - 10.8 /CUMM) 14.7 H RBC (4.70 - 6.10 /CUMM) 3.08 L Hgb (14.0 - 18.0 G/DL) 7.7 L Hct (42 - 52 %) 24.1 L MCV (80.0 - 94.0 FL) 78.4 L MCH (27.0 - 31.0 PG) 25.1 L RDW (11.5 - 14.5 %) 21.9 H Plt Count (130 - 400 /CUMM) 149 MPV (7.4 - 10.4 FL) 12.3 H Gran % (42.2 - 75.2 %) 87.4 H Lymphocytes % (20.5 - 51.1 %) 4.8 L Monocytes % (1.7 - 9.3 %) 7.6 Eosinophils % (0 - 5 %) 0.2 Basophils % (0.0 - 2.0 %) 0 Absolute Granulocytes (1.4 - 6.5 /CUMM) 12.8 H Absolute Lymphocytes (1.2 - 3.4 /CUMM) 0.7 L Absolute Monocytes (0.10 - 0.60 /CUMM) 1.1 H Absolute Eosinophils (0.0 - 0.7 /CUMM) 0 Absolute Basophils (0.0 - 0.2 /CUMM) 0 PUBS MCHC (33.0 - 37.0 G/DL) 32.0 L Last 24 Hours of Clarke Results: Blood cultures April 01 negative Ascitic fluid culture March 31 negative Right pleural fluid culture March 31 negative Blood cultures March 30 negative Assessment/Plan Impression: Overall status is poor, with hypotension and persistent nausea and anorexic, with poor po intake. The source of his recent low-grade fever is unclear but his temperatures have been normal since, and his white blood cell count, though still elevated, has decreased. He remains on Ceftazidime for Escherichia coli and Pseudomonas peritonitis secondary to a migrated Pleurex catheter, removed 12 days ago in the OR, with his recent paracentesis revealing a marked decrease in his white blood cell count. He continues to require dialysis for renal failure, possibly secondary to sepsis superimposed on his underlying polycystic kidney ( and liver) disease. Suggestion: 1. Further management with regard to his nutrition per Medicine 2. 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 Continue Ceftazidime
--- NOTE | 2017-04-03 12:43 | RADIOLOGY REPORT ---
EXAMINATION: XR CHEST CLINICAL INFORMATION: Right hemithorax. Status post Pleurx catheter. COMPARISON: Chest 04/03/2017 at 6:33 AM. TECHNIQUE: 2 views of the chest were obtained. FINDINGS: The lungs are hypoexpanded with bibasilar haziness. There is right basilar Pleurx catheter with decreased pleural effusion. No visible pneumothorax seen. A large bore central catheter is seen with its tip at the atriocaval junction. Minimal atelectatic changes in left lung base. Otherwise the upper lungs are clear. The heart size and pulmonary vascularity is normal. No gross bony abnormality seen. IMPRESSION: New chest catheter at the right lung base without pneumothorax. Slight expansion of right lung with decreased right pleural effusion is noted. Minimal atelectatic changes left lung base.
[2017-04-03 16:00] VITALS: BP 112/69
[2017-04-03 20:17] LABS: ABSOLUTE BASOPHIL COUNT 0 /CUMM (0.0-0.2); ABSOLUTE EOSINOPHIL COUNT 0 /CUMM (0.0-0.7); ABSOLUTE GRANULOCYTE CT 2.8 /CUMM (1.4-6.5); ABSOLUTE LYMPH COUNT 0.5 /CUMM (1.2-3.4); ABSOLUTE MONOCYTE COUNT 0.2 /CUMM (0.10-0.60); BASOPHIL % 0 % (0.0-2.0); EOSINOPHIL % 0.3 % (0-5); GRANULOCYTE % 80.8 % (42.2-75.2); HEMATOCRIT 26.5 % (42-52); MEAN CORPUSCULAR HGB 24.8 PG (27.0-31.0); MEAN CORPUSCULAR HGB CONC 31.6 G/DL (33.0-37.0); MEAN CORPUSCULAR VOLUME 78.3 FL (80.0-94.0); MEAN PLATELET VOLUME 12.6 FL (7.4-10.4); PLATELET COUNT 154 /CUMM (130-400); RBC DISTRIBUTION WIDTH 22.3 % (11.5-14.5); RED BLOOD CELL CT 3.38 /CUMM (4.70-6.10)
[2017-04-03 20:41] LABS: WHITE BLOOD CELL COUNT 3.5 /CUMM (4.8-10.8)
[2017-04-04] VITALS: BP 72/49
[2017-04-04 05:25] LABS: ABSOLUTE BASOPHIL COUNT 0 /CUMM (0.0-0.2); ABSOLUTE EOSINOPHIL COUNT 0 /CUMM (0.0-0.7); ABSOLUTE MONOCYTE COUNT 0.8 /CUMM (0.10-0.60); BASOPHIL % 0 % (0.0-2.0); EOSINOPHIL % 0 % (0-5)
[2017-04-04 05:31] LABS: ABSOLUTE GRANULOCYTE CT 15.2 /CUMM (1.4-6.5); ABSOLUTE LYMPH COUNT 0.3 /CUMM (1.2-3.4); HEMATOCRIT 21.9 % (42-52); MEAN CORPUSCULAR HGB 24.3 PG (27.0-31.0); MEAN CORPUSCULAR VOLUME 78.2 FL (80.0-94.0); MEAN PLATELET VOLUME 13.2 FL (7.4-10.4); RBC DISTRIBUTION WIDTH 22.4 % (11.5-14.5)
[2017-04-04 06:03] LABS: WHITE BLOOD CELL COUNT 16.4 /CUMM (4.8-10.8)
[2017-04-04 06:07] LABS: GRANULOCYTE % 92.9 % (42.2-75.2); PLATELET COUNT 135 /CUMM (130-400)
--- NOTE | 2017-04-04 07:13 | PN- Resident CRCU ---
Subjective HPI/CRCU Issues: Catheter-associated Peritonitis SHELBY on CKD on HD Nonsustained SVT - resolved Hyperkalemia - resolved Acute hypoxic respiratory failure - resolved 24 Hour Events: Intermittent episodes of hypotension overnight which responds well to fluid bolus. This morning his H/H fell down requiring one unit of PRBC. He states feeling weak. His oral intake remains poor. Objective Vital Signs & I&O Last 8 Hrs of Vitals and I&O: . Exam General Appearance: well developed/nourished, no apparent distress, alert, awake Head: atraumatic, normal appearance Ears, Nose, Throat: normal pharynx Neck: normal inspection Respiratory: normal breath sounds, chest non-tender Cardiovascular: regular rate/rhythm Gastrointestinal: soft, non-tender, distention, palpable cysts Extremities: no edema Cranial Nerves: normal hearing, normal speech Skin: intact, normal color, warm/dry Skin Temp/Moisture Exam: Warm/Dry Sepsis Skin Exam (color): Normal for Ethnicity Current Medications: Current Medications Sig/Lola Start time Last Medication Dose Route Stop Time Status Admin Acetaminophen 650 MG Q4P PRN 04/01 1815 AC 04/02 PO 1415 Albumin Human 25 GM Q8 03/24 2200 AC 04/04 IV 0630 Benzocaine/Menthol 1 MYLES Q2P PRN 04/03 1100 AC PO Ceftazidime 1,000 MG Q24H 04/04 0930 AC 04/04 IV 1232 Collagenase 1 BENEDICTO BID 04/02 1100 AC 04/04 TOP 1113 Desvenlafaxine 50 MG MoWeFr@1300 03/30 1300 AC 04/04 Succinate PO 1232 Epoetin Bryan 3,000 UNIT 03/30 1000 AC 04/04 IV 1112 Glycerin 2 SPRAY Q2P PRN 04/01 2045 AC PO Heparin Sodium 5,000 UNIT Q8 03/28 1444 AC 04/04 (Porcine) SC 0630 Magnesium Sulfate 1 GM ONCE ONE 04/04 0930 DC 04/04 Dextrose/Water 100 ML IV 04/04 1329 1232 Morphine Sulfate 2 MG Q4P PRN 03/21 2100 DC 04/03 IV 1726 Multivitamins 1 TAB 1700 03/25 1700 AC 04/03 PO 1701 Omeprazole 40 MG DAILY AC 03/25 1648 AC 04/04 PO 0630 Polyethylene Glycol 17 GM DAILY PRN 04/03 1100 AC PO Promethazine HCl 12.5 MG Q4P PRN 03/31 1745 AC 04/01 IV 04/07 1744 2159 Sevelamer Carbonate 1,600 MG WITH MEALS 03/24 1700 AC 04/04 PO 1232 Sodium Chloride 500 ML BOLUS ONE 04/03 2130 DC IV 04/03 2229 Sodium Chloride 1,000 ML BOLUS ONE 04/03 2100 DC 04/03 IV 04/03 2259 2102 Sodium Chloride 500 ML BOLUS ONE 04/03 1945 DC 04/03 IV 04/03 2044 1935 Verapamil HCl 180 MG DAILY 03/25 0745 AC 03/29 PO 0934 Impression/Plan Impression/Problem List Impression: Mr. Tijerina is a 66 yo m with a PMH of PKD, Polycystic liver disease, portal HTN , HTN, HLD, umbilical hernia repair, colon ademona, GERD who presented to the ED with NVD with progressively worsened abdominal distention from ascitic fluid. Assessment and Plan: Hypotension: * His blood pressure has been running on the low side. * He received Levophed for a few hours peripherally on 04/01 for a couple of hours. . * Currently refuses for a central line placement for administeration of pressors. * Will give bolus if necessary to maintain his blood pressure. Nonsustained SVT - resolved Patient experienced 2 episodes of SVT with HR up to 180s. He was asymptomatic during both events. During the first event he was administered IV Metoprolol 5 mg. The second event spontaneously resolved and did not require medical management * Continue Metoprolol 6.25 mg BID * Cardiology recommendations appreciated * Will administer Adenosine for any acute events * Patient to continue on tele monitoring for now. Acute Hypoxic Respiratory Failure s/p Pleurx Cath removal: Patient has a patent connection between abdominal cavity and pleural space 2/2 migrated indwelling catheter, leading to transfer of ascitic fluid to the pleural space. A pig tail was placed. As per Dr. Carson options are to watch and wait to see if spontaneously resolves vs surgical intervention. PA/Lateral CXR on 03/25 for pleural effusion demonstrated no significant pleural effusion or evidence of pneumothorax. ECHO demonstrated Aortic sclerosis is present with no valvular stenosis or insufficiency, a very small pericardial effusion, EF 55-60 % * Continue pigtail catheter drainage connected to water seal. * Surgery recommends to leave the catheter in place for now. If the connection does not seal on its own, the patient may require surgery. * His output through the Pleurx catheter has been very low which is suggestive that perhaps the connection is closing on its own. * TRC/nebs, oxygen supplementation PRN. Remains on room air. * CXR 03/29 showed no pleural effusion or acute abnormality. Catheter-associated Peritonitis: Patient had an indwelling pleural catheter placed in July 2016 for pleural effusion that migrated into the abdominal cavity. Considering that the patient's catheter was never removed it can be a possible source of infection. He had another catheter placed in the R lung that was eventually removed. CT abdomen/ pelvis on admission demonstrated the resolution of his R-side pleural effusion. He gets 1L of ascitic fluid drained from the migrated Pleurx catheter on . Prior to coming to the hospital it was last drained on Tuesday by his visiting nurse. He had a diagnostic and therapeutic paracentesis performed. His ascitic fluid white count was 8222. Repeat paracentesis demonstrated a transudative ascitic fluid with SAAG > 1. His ascitic fluid culture grew GNR and he was started on Ceftazidime. Vancomycin was discontinued. * ID recommendations appreciated. * His white count is still rising. * Blood cultures - pending * RUQ U/S demonstrated extensive cystic structures and free fluid present throughout the abdomen. * Had a diagnostic and therapeutic paracentesis 03/31. * Ascitic fluid studies not suggestive of SBP. * Will send for C.diff if he has diarrhea. * Continue Ceftazidime daily. * Continue IV albumin 25gm q8. * Will obtain HIDA scan to assess for biliary function. His previous CT&U/S have shown poor visualization of the gallbladder. There has been an uptrend in his LFTs though that could also be due to the DesVenlafaxine that was started. SHELBY on CKD most likely 2/2 dehydration in the setting of his CKD from PKD: Patient is reported to have a baseline Cr of 2-3. His Cr initially eliceo on admission but has trended down. Patient had an Evin cath placed * Continue to monitor renal function * Continue IV Albumin 25 gm q8 * Nephrology recommendations appreciated * Dialysis M/W/F * Continue Epogen with dialysis. Depression: * Patient requested for a psych consult as he feels depressed. * Psych has suggested starting him on DesVenlafaxine 50mg daily. * Renal and GI have approved the use of the medication from their standpoint. However, recommend monitoring of LFTs while on the drug. * Patient is agreeable to start the medication. History of PKD, Polycystic liver disease: Patient reported he had an appt at [facility] in which he was told he wouldn't receive a transplant until the resolution of his ascitic fluid. CT abd/pel demonstrated numerous cysts effectively replacing the normal hepatic and bilateral renal parenchyma Diet: Regular Diet with 2g K restriction. DVT Prophylaxis: ALPS Code Status: Full Problem List: 1. Polycystic liver disease 2. Polycystic kidney disease Pain Ratin Tomorrow's Labs & Rationales: CBC, ICU bundle Plan DVT/Prophylaxis: mechanical
[2017-04-04 08:00] VITALS: BP 94/70
--- NOTE | 2017-04-04 09:56 | PN- CRCU ---
Subjective HPI/Critical Care Issues: The patient is awake and alert. He appears frail. He continues to have difficulty eating. He denies any respiratory distress, noting he has no shortness of breath, cough, sputum production, chest congestion or chest pain. He is awaiting dialysis. The patient's hemoglobin dropped today to 6.8. He will receive 1 unit of packed red cells with dialysis. Objective Current Medications: Current Medications Sig/Lola Start time Last Medication Dose Route Stop Time Status Admin Acetaminophen 650 MG Q4P PRN 04/01 1815 AC 04/02 PO 1415 Albumin Human 25 GM Q8 03/24 2200 AC 04/04 IV 0630 Benzocaine/Menthol 1 MYLES Q2P PRN 04/03 1100 AC PO Ceftazidime 1,000 MG Q24H 04/04 0930 AC IV Ceftazidime 1,000 MG Q24H 03/27 0800 DC 04/03 IV 0754 Collagenase 1 BENEDICTO BID 04/02 1100 AC 04/03 TOP 2133 Desvenlafaxine 50 MG MoWeFr@1300 03/30 1300 AC 04/01 Succinate PO 1450 Epoetin Bryan 3,000 UNIT 03/30 1000 AC 03/30 IV 1035 Glycerin 2 SPRAY Q2P PRN 04/01 2045 AC PO Heparin Sodium 5,000 UNIT Q8 03/28 1444 AC 04/04 (Porcine) SC 0630 Magnesium Sulfate 1 GM ONCE ONE 04/04 0930 AC Dextrose/Water 100 ML IV 04/04 1329 Morphine Sulfate 2 MG Q4P PRN 03/21 2100 AC 04/03 IV 1726 Multivitamins 1 TAB 1700 03/25 1700 AC 04/03 PO 1701 Omeprazole 40 MG DAILY AC 03/25 1648 AC 04/04 PO 0630 Polyethylene Glycol 17 GM DAILY PRN 04/03 1100 AC PO Promethazine HCl 12.5 MG Q4P PRN 03/31 1745 AC 04/01 IV 04/07 1744 2159 Sevelamer Carbonate 1,600 MG WITH MEALS 03/24 1700 AC 04/03 PO 1145 Sodium Chloride 500 ML BOLUS ONE 04/03 2130 DC IV 04/03 2229 Sodium Chloride 1,000 ML BOLUS ONE 04/03 2100 DC 04/03 IV 04/03 2259 2102 Sodium Chloride 500 ML BOLUS ONE 04/03 1945 DC 04/03 IV 01/21 2044 1935 Verapamil HCl 180 MG DAILY 03/25 0745 AC 03/29 PO 0934 Vital Signs & I&O Last 24 Hrs of Vitals and I&O: Vital Signs Date Time Temp Pulse Resp B/P B/P Pulse O2 O2 Flow FiO2 Mean Ox Delivery Rate 04/04 0400 94 04/04 0000 96 Room Air 04/04 0000 97.9 89 18 72/49 96 Room Air 04/03 2000 95 Room Air 04/03 1600 98.3 98 19 112/69 96 Room Air Intake & Output 04/04 1600 04/04 0800 04/04 0000 Intake Total 130 1200 Output Total 0 10 Balance 130 1190 Intake, IV 100 1100 Intake, Oral 30 100 Output, Chest 0 10 Tube Drainage Exam General Appearance: no apparent distress, pale, alert, awake, anxious, chronically ill Head: atraumatic, normal appearance Neck: supple Respiratory: no respiratory distress, quiet respiration, lungs clear Cardiovascular: regular rate/rhythm Abdomen: distended but soft, bowel sounds present Extremities: no edema Skin: intact, normal color, warm/dry Results Last 24 Hrs of Lab Results: Laboratory Tests 04/04/17 0420: Anion Gap 24 H, Estimated GFR 11 L, Glucose 94, Calcium 9.0, Phosphorus 4.7 H , Magnesium 1.7, Total Bilirubin 2.1 H, Direct Bilirubin Pending, GGT Pending, AST 34, ALT 31, Albumin 3.9, CBC w Diff NO MAN DIFF REQ, RBC 2.80 L, MCV 78.2 L, MCH 24.3 L, RDW 22.4 H, MPV 13.2 H, Gran % 92.9 H, Lymphocytes % 2.0 L, Monocytes % 5.1, Eosinophils % 0, Basophils % 0, Absolute Granulocytes 15.2 H, Absolute Lymphocytes 0.3 L, Absolute Monocytes 0.8 H, Absolute Eosinophils 0, Absolute Basophils 0, PUBS MCHC 31.0 L 04/03/17 1825: CBC w Diff MAN DIFF ORDERED, RBC 3.38 L, MCV 78.3 L, MCH 24.8 L, RDW 22.3 H, MPV 12.6 H, Gran % 80.8 H, Lymphocytes % 14.0 L, Monocytes % 4.9, Eosinophils % 0.3, Basophils % 0, Absolute Granulocytes 2.8, Segmented Neutrophils 79 H, Band Neutrophils 12 H, Absolute Lymphocytes 0.5 L, Lymphocytes 7 L, Monocytes 2, Absolute Monocytes 0.2, Absolute Eosinophils 0, Absolute Basophils 0, Platelet Estimate ADEQUATE, Polychromasia 2+, Hypochromic-Microcytic 2+, Poikilocytosis 2+, Target Cells 1+, Ovalocytes 1+, Schistocytes 1+, PUBS MCHC 31.6 L Diagnostic Data CXR Findings: New chest catheter at the right lung base without pneumothorax. Slight expansion of right lung with decreased right pleural effusion is noted. Minimal atelectatic changes left lung base. Impression/Plan Impression/Plan Impression/Plan: 1. Leukocytosis, despite ceftazidime for Escherichia coli and Pseudomonas peritonitis. 2. SHELBY superimposed on severe polycystic renal disease with liver complications , and intense ascites. Now on hemodialysis. 3. Resolved respiratory failure. 4. Recent diarrhea, now improved. 5. Brief episodes of nonsustained supraventricular tachycardia, cardiology following. 6. Hyperkalemia. 7. Microcytic anemia, without evidence of active bleeding. 8. Persistent hypotension. Recommendations: * Agree with transfusing 1 unit of packed red blood cells with dialysis today. * Continue chest tube management as per CT surgery. * Continue Ceftazidime and monitoring of cultures. * Stool for C. difficile if any evidence of diarrhea. * Encourage oral intake. * Continue IV albumin, Neupogen and Renvela as per nephrology. * Morphine as needed for discomfort. * Out of bed to chair/increase activity. * DVT prophylaxis at all times. * Continue telemetry monitoring. * Continue Zofran and Tigan for nausea. * Appreciate all consultants input. * Discussed plan of care with housestaff. I asked them to contact me should the patient's condition change or deteriorate.
--- NOTE | 2017-04-04 10:20 | PN- Psychiatry ---
Assessment/Plan Impression: The patient states that he is feeling better, scales depression as 7/10, denies anxiety, denies SI or HI. He is tolerating the desvenlafaxine/Pristiq well so far. Suggestion: 1. Continue desvenlaxaine 50 mg PO every 48 hours after hemodialysis, if possible. Currently ordered as Tuesday, Tuesday and Tuesday at 1300. We will continue to follow along. Subjective Subjective: See above Objective Last 24 Hrs of Vital Signs/I&O Vital Signs Date Time Temp Pulse Resp B/P B/P Pulse O2 O2 Flow FiO2 Mean Ox Delivery Rate 04/04 0400 94 04/04 0000 96 Room Air 04/04 0000 97.9 89 18 72/49 96 Room Air 04/03 2000 95 Room Air 04/03 1600 98.3 98 19 112/69 96 Room Air Intake & Output 04/04 1600 04/04 0800 04/04 0000 Intake Total 130 1200 Output Total 0 10 Balance 130 1190 Intake, IV 100 1100 Intake, Oral 30 100 Output, Chest 0 10 Tube Drainage Physical Exam: Not performed Physical Exam General Appearance: alert, awake, comfortable Current Medications: Current Medications Sig/Lola Start time Last Medication Dose Route Stop Time Status Admin Acetaminophen 650 MG Q4P PRN 04/01 1815 AC 04/02 PO 1415 Albumin Human 25 GM Q8 03/24 2200 AC 04/04 IV 0630 Benzocaine/Menthol 1 MYLES Q2P PRN 04/03 1100 AC PO Ceftazidime 1,000 MG Q24H 04/04 0930 AC IV Ceftazidime 1,000 MG Q24H 03/27 0800 DC 04/03 IV 0754 Collagenase 1 BENEDICTO BID 04/02 1100 AC 04/03 TOP 2133 Desvenlafaxine 50 MG MoWeFr@1300 03/30 1300 AC 04/01 Succinate PO 1450 Epoetin Bryan 3,000 UNIT 03/30 1000 AC 03/30 IV 1035 Glycerin 2 SPRAY Q2P PRN 04/01 2045 AC PO Heparin Sodium 5,000 UNIT Q8 03/28 1444 AC 04/04 (Porcine) SC 0630 Magnesium Sulfate 1 GM ONCE ONE 04/04 0930 AC Dextrose/Water 100 ML IV 04/04 1329 Morphine Sulfate 2 MG Q4P PRN 03/21 2100 AC 04/03 IV 1726 Multivitamins 1 TAB 1700 03/25 1700 AC 04/03 PO 1701 Omeprazole 40 MG DAILY AC 03/25 1648 AC 04/04 PO 0630 Polyethylene Glycol 17 GM DAILY PRN 04/03 1100 AC PO Promethazine HCl 12.5 MG Q4P PRN 03/31 1745 AC 04/01 IV 04/07 1744 2159 Sevelamer Carbonate 1,600 MG WITH MEALS 03/24 170 AC 04/03 PO 1145 Sodium Chloride 500 ML BOLUS ONE 04/030 DC IV 04/03 2229 Sodium Chloride 1,000 ML BOLUS ONE 04/03 2100 DC 04/03 IV 04/03 2259 2102 Sodium Chloride 500 ML BOLUS ONE 04/03 1945 DC 04/03 IV 04/03 2044 1935 Verapamil HCl 180 MG DAILY 03/25 0745 AC 03/29 PO 0934 Results Last 24 Hrs of Labs/Mics: Laboratory Tests 04/04 04/03 0420 1825 Chemistry Sodium (137 - 145 mmol/L) 143 Potassium (3.5 - 5.1 mmol/L) 4.2 Chloride (98 - 107 mmol/L) 101 Carbon Dioxide (22 - 30 mmol/L) 18 L Anion Gap (5 - 16) 24 H BUN (9 - 20 mg/dL) 81 H Creatinine (0.7 - 1.2 mg/dL) 5.3 *H Estimated GFR (>60 ml/min) 11 L Glucose (65 - 99 mg/dL) 94 Calcium (8.4 - 10.2 mg/dL) 9.0 Phosphorus (2.5 - 4.5 mg/dL) 4.7 H Magnesium (1.6 - 2.3 mg/dL) 1.7 Total Bilirubin (0.2 - 1.3 mg/dL) 2.1 H Direct Bilirubin (< 0.4 mg/dL) Pending GGT (15 - 73 U/L) Pending AST (17 - 59 U/L) 34 ALT (21 - 72 U/L) 31 Albumin (3.5 - 5.0 g/dL) 3.9 Hematology CBC w Diff NO MAN DIFF REQ MAN DIFF ORDERED WBC (4.8 - 10.8 /CUMM) 16.4 H 3.5 L RBC (4.70 - 6.10 /CUMM) 2.80 L 3.38 L Hgb (14.0 - 18.0 G/DL) 6.8 *L 8.4 L Hct (42 - 52 %) 21.9 L 26.5 L MCV (80.0 - 94.0 FL) 78.2 L 78.3 L MCH (27.0 - 31.0 PG) 24.3 L 24.8 L RDW (11.5 - 14.5 %) 22.4 H 22.3 H Plt Count (130 - 400 /CUMM) 135 154 MPV (7.4 - 10.4 FL) 13.2 H 12.6 H Gran % (42.2 - 75.2 %) 92.9 H 80.8 H Lymphocytes % (20.5 - 51.1 %) 2.0 L 14.0 L Monocytes % (1.7 - 9.3 %) 5.1 4.9 Eosinophils % (0 - 5 %) 0 0.3 Basophils % (0.0 - 2.0 %) 0 0 Absolute Granulocytes (1.4 - 6.5 /CUMM) 15.2 H 2.8 Segmented Neutrophils (42.2 - 75.2 %) 79 H Band Neutrophils (0.0 - 5.0 %) 12 H Absolute Lymphocytes (1.2 - 3.4 /CUMM) 0.3 L 0.5 L Lymphocytes (20.5 - 51.1 %) 7 L Monocytes (1.7 - 9.3 %) 2 Absolute Monocytes (0.10 - 0.60 /CUMM) 0.8 H 0.2 Absolute Eosinophils (0.0 - 0.7 /CUMM) 0 0 Absolute Basophils (0.0 - 0.2 /CUMM) 0 0 Platelet Estimate (ADEQUATE) ADEQUATE Polychromasia 2+ Hypochromic-Microcytic 2+ Poikilocytosis 2+ Target Cells 1+ Ovalocytes 1+ Schistocytes 1+ PUBS MCHC (33.0 - 37.0 G/DL) 31.0 L 31.6 L
--- NOTE | 2017-04-04 11:14 | PN- Infect Dx ---
Subjective Subjective: Afebrile. He continues to complain of nausea and some abdominal discomfort. Objective Last 24 Hrs of Vital Signs/I&O Vital Signs Date Time Temp Pulse Resp B/P B/P Pulse O2 O2 Flow FiO2 Mean Ox Delivery Rate 04/04 0400 94 04/04 0000 96 Room Air 04/04 0000 97.9 89 18 72/49 96 Room Air 04/03 2000 95 Room Air 04/03 1600 98.3 98 19 112/69 96 Room Air Intake & Output 04/04 1600 04/04 0800 04/04 0000 Intake Total 130 1200 Output Total 0 10 Balance 130 1190 Intake, IV 100 1100 Intake, Oral 30 100 Output, Chest 0 10 Tube Drainage Physical Exam Other Physical Findings: He appears chronically ill but in no acute distress Neck dialysis catheter in the right IJ with no inflammation at the site Lungs bilateral rhonchi; right pigtail catheter with 80 mL output yesterday Heart regular rhythm with no murmur Abdomen is distended, mildly tender on palpation diffusely, with no guarding or rebound, positive bowel sounds Extremities no cyanosis, clubbing or edema Results Last 24 Hours of Lab Results: Laboratory Tests 04/04 04/03 0420 1825 Chemistry Sodium (137 - 145 mmol/L) 143 Potassium (3.5 - 5.1 mmol/L) 4.2 Chloride (98 - 107 mmol/L) 101 Carbon Dioxide (22 - 30 mmol/L) 18 L Anion Gap (5 - 16) 24 H BUN (9 - 20 mg/dL) 81 H Creatinine (0.7 - 1.2 mg/dL) 5.3 *H Estimated GFR (>60 ml/min) 11 L Glucose (65 - 99 mg/dL) 94 Calcium (8.4 - 10.2 mg/dL) 9.0 Phosphorus (2.5 - 4.5 mg/dL) 4.7 H Magnesium (1.6 - 2.3 mg/dL) 1.7 Total Bilirubin (0.2 - 1.3 mg/dL) 2.1 H Direct Bilirubin (< 0.4 mg/dL) 1.8 H GGT (15 - 73 U/L) 63 AST (17 - 59 U/L) 34 ALT (21 - 72 U/L) 31 Lactate Dehydrogenase (313 - 618 U/L) 477 Albumin (3.5 - 5.0 g/dL) 3.9 Hematology CBC w Diff NO MAN DIFF REQ MAN DIFF ORDERED WBC (4.8 - 10.8 /CUMM) 16.4 H 3.5 L RBC (4.70 - 6.10 /CUMM) 2.80 L 3.38 L Hgb (14.0 - 18.0 G/DL) 6.8 *L 8.4 L Hct (42 - 52 %) 21.9 L 26.5 L MCV (80.0 - 94.0 FL) 78.2 L 78.3 L MCH (27.0 - 31.0 PG) 24.3 L 24.8 L RDW (11.5 - 14.5 %) 22.4 H 22.3 H Plt Count (130 - 400 /CUMM) 135 154 MPV (7.4 - 10.4 FL) 13.2 H 12.6 H Gran % (42.2 - 75.2 %) 92.9 H 80.8 H Lymphocytes % (20.5 - 51.1 %) 2.0 L 14.0 L Monocytes % (1.7 - 9.3 %) 5.1 4.9 Eosinophils % (0 - 5 %) 0 0.3 Basophils % (0.0 - 2.0 %) 0 0 Absolute Granulocytes (1.4 - 6.5 /CUMM) 15.2 H 2.8 Segmented Neutrophils (42.2 - 75.2 %) 79 H Band Neutrophils (0.0 - 5.0 %) 12 H Absolute Lymphocytes (1.2 - 3.4 /CUMM) 0.3 L 0.5 L Lymphocytes (20.5 - 51.1 %) 7 L Monocytes (1.7 - 9.3 %) 2 Absolute Monocytes (0.10 - 0.60 /CUMM) 0.8 H 0.2 Absolute Eosinophils (0.0 - 0.7 /CUMM) 0 0 Absolute Basophils (0.0 - 0.2 /CUMM) 0 0 Platelet Estimate (ADEQUATE) ADEQUATE Polychromasia 2+ Hypochromic-Microcytic 2+ Poikilocytosis 2+ Target Cells 1+ Ovalocytes 1+ Schistocytes 1+ PUBS MCHC (33.0 - 37.0 G/DL) 31.0 L 31.6 L Last 24 Hours of Clarke Results: Blood cultures 2 April 01 negative Recent Imaging Studies: Chest x-ray April 03 negative Assessment/Plan Impression: Condition remains poor, with hypotension and persistent nausea, anorexia and poor po intake, with a persistent leukocytosis of unclear etiology, with recent blood, pleural fluid and ascitic fluid cultures and chest x-ray negative. He remains on Ceftazidime for Escherichia coli and Pseudomonas peritonitis secondary to a migrated Pleurex catheter, removed 13 days ago in the OR, with his recent paracentesis revealing a marked decrease in his white blood cell count. His gallbladder was not imaged on his recent abdominal ultrasound or CT scan and a biliary process cannot be ruled out. Other possible sources of his leukocytosis including an infected renal cyst. He continues to require dialysis for renal failure, possibly secondary to sepsis superimposed on his underlying polycystic kidney (and liver) disease. Suggestion: 1. Would pursue a HIDA scan 2. Consider further evaluation to rule out an infected renal cyst if above negative 3. Further management with regard to his nutrition per Medicine 4. 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 Continue Ceftazidime
--- NOTE | 2017-04-04 11:17 | PN- Cardiology ---
Subjective Subjective: The patient is seen while on dialysis. He is comfortable with no chest pain or shortness of breath. He has continued to have persistent hypotension. No further arrhythmias noted on telemetry Objective Vital Signs and I&Os Vital Signs Date Time Temp Pulse Resp B/P B/P Pulse O2 O2 Flow FiO2 Mean Ox Delivery Rate 04/04 1113 76 90/50 04/04 0400 94 04/04 0000 96 Room Air 04/04 0000 97.9 89 18 72/49 96 Room Air 04/03 2000 95 Room Air 04/03 1600 98.3 98 19 112/69 96 Room Air Intake & Output 04/04 1600 04/04 0800 04/04 0000 04/03 1600 04/03 0800 04/03 0000 Intake Total 130 1200 400 150 340 Output Total 0 10 50 20 20 Balance 130 1190 350 130 320 Intake, IV 100 1100 120 100 Intake, Oral 30 100 280 150 240 Number 1 Bowel Movements Output, Chest 0 10 50 20 Tube Drainage Output, 20 Drainage Output, Urine 0 Patient 133 lb Weight Physical Exam: Gen: NAD HEENT: normal Lungs: clear to auscultation, normal resp. effort Heart: RRR, S1, S2, 1/6 systolic murmur Abdomen: Soft, nontender, no masses Extremities: 1+ edema Neuro: Alert and oriented x 3, cranial nerves intact Current Medications: Current Medications Sig/Lola Start time Last Medication Dose Route Stop Time Status Admin Acetaminophen 650 MG Q4P PRN 04/01 1815 AC 04/02 PO 1415 Albumin Human 25 GM Q8 03/24 2200 AC 04/04 IV 0630 Benzocaine/Menthol 1 MYLES Q2P PRN 04/03 1100 AC PO Ceftazidime 1,000 MG Q24H 04/04 0930 AC IV Ceftazidime 1,000 MG Q24H 03/27 0800 DC 04/03 IV 0754 Collagenase 1 BENEDICTO BID 04/02 1100 AC 04/04 TOP 1113 Desvenlafaxine 50 MG MoWeFr@1300 03/30 1300 AC 04/01 Succinate PO 1450 Epoetin Bryan 3,000 UNIT 03/30 1000 AC 04/04 IV 1112 Glycerin 2 SPRAY Q2P PRN 04/01 2045 AC PO Heparin Sodium 5,000 UNIT Q8 03/28 1444 AC 04/04 (Porcine) SC 0630 Magnesium Sulfate 1 GM ONCE ONE 04/04 0930 AC Dextrose/Water 100 ML IV 04/04 1329 Morphine Sulfate 2 MG Q4P PRN 03/21 2100 AC 04/03 IV 1726 Multivitamins 1 TAB 1700 03/25 1700 AC 04/03 PO 1701 Omeprazole 40 MG DAILY AC 03/25 1648 AC 04/04 PO 0630 Polyethylene Glycol 17 GM DAILY PRN 04/03 1100 AC PO Promethazine HCl 12.5 MG Q4P PRN 03/31 1745 AC 04/01 IV 04/07 1744 2159 Sevelamer Carbonate 1,600 MG WITH MEALS 03/24 1700 AC 04/03 PO 1145 Sodium Chloride 500 ML BOLUS ONE 04/03 2130 DC IV 04/03 2229 Sodium Chloride 1,000 ML BOLUS ONE 04/03 2100 DC 04/03 IV 04/03 2259 2102 Sodium Chloride 500 ML BOLUS ONE 04/03 1945 DC 04/03 IV 04/03 2044 1935 Verapamil HCl 180 MG DAILY 03/25 0745 AC 03/29 PO 0934 Results Last 48 Hrs of Labs/Mics: Laboratory Tests 04/04/17 0420: Anion Gap 24 H, Estimated GFR 11 L, Glucose 94, Calcium 9.0, Phosphorus 4.7 H , Magnesium 1.7, Total Bilirubin 2.1 H, Direct Bilirubin 1.8 H, GGT 63, AST 34 , ALT 31, Lactate Dehydrogenase 477, Albumin 3.9, CBC w Diff NO MAN DIFF REQ, RBC 2.80 L, MCV 78.2 L, MCH 24.3 L, RDW 22.4 H, MPV 13.2 H, Gran % 92.9 H, Lymphocytes % 2.0 L, Monocytes % 5.1, Eosinophils % 0, Basophils % 0, Absolute Granulocytes 15.2 H, Absolute Lymphocytes 0.3 L, Absolute Monocytes 0.8 H, Absolute Eosinophils 0, Absolute Basophils 0, PUBS MCHC 31.0 L 04/03/17 1825: CBC w Diff MAN DIFF ORDERED, RBC 3.38 L, MCV 78.3 L, MCH 24.8 L, RDW 22.3 H, MPV 12.6 H, Gran % 80.8 H, Lymphocytes % 14.0 L, Monocytes % 4.9, Eosinophils % 0.3, Basophils % 0, Absolute Granulocytes 2.8, Segmented Neutrophils 79 H, Band Neutrophils 12 H, Absolute Lymphocytes 0.5 L, Lymphocytes 7 L, Monocytes 2, Absolute Monocytes 0.2, Absolute Eosinophils 0, Absolute Basophils 0, Platelet Estimate ADEQUATE, Polychromasia 2+, Hypochromic-Microcytic 2+, Poikilocytosis 2+, Target Cells 1+, Ovalocytes 1+, Schistocytes 1+, PUBS MCHC 31.6 L 04/03/17 0430: Anion Gap 22 H, Estimated GFR 13 L, Glucose 90, Calcium 9.1, Phosphorus 4.3, Magnesium 1.7, Total Bilirubin 2.0 H, AST 25, ALT 25, Albumin 4.0, CBC w Diff NO MAN DIFF REQ, RBC 3.08 L, MCV 78.4 L, MCH 25.1 L, RDW 21.9 H, MPV 12.3 H , Gran % 87.4 H, Lymphocytes % 4.8 L, Monocytes % 7.6, Eosinophils % 0.2, Basophils % 0, Absolute Granulocytes 12.8 H, Absolute Lymphocytes 0.7 L, Absolute Monocytes 1.1 H, Absolute Eosinophils 0, Absolute Basophils 0, PUBS MCHC 32.0 L Recent Imaging Studies: Chest x-ray 04/03/17: New chest catheter at the right lung base without pneumothorax. Slight expansion of right lung with decreased right pleural effusion is noted. Minimal atelectatic changes left lung base. Assessment/Plan Assessment/Plan Assessment: 1. Nonsustained superventricular tachycardia-stable with no significant arrhythmias over the last 24 hours 2. Ascites with SBP vs Catheter-associated Peritonitis 3. Acute on chronic renal insufficiency with polycystic kidneys 4. Polycystic liver disease 5. Hyperkalemia 6. Microcytic anemia 7. Persistent hypotension Recommendations: * Agree with transfusion. * Agree with IV antibiotics * Hold verapamil for hypotension * Continue supportive care Continue telemetry? Yes
--- NOTE | 2017-04-04 15:29 | PN- Thoracic Surgery ---
Subjective Subjective: Resting comfortably. No respiratory distress. Objective Vital Signs and I&Os Vital Signs Date Time Temp Pulse Resp B/P B/P Pulse O2 O2 Flow FiO2 Mean Ox Delivery Rate 04/04 1113 76 90/50 04/04 0400 94 04/04 0000 96 Room Air 04/04 0000 97.9 89 18 72/49 96 Room Air 04/03 2000 95 Room Air 04/03 1600 98.3 98 19 112/69 96 Room Air Intake & Output 04/04 1600 04/04 0800 04/04 0000 04/03 1600 04/03 0800 04/03 0000 Intake Total 130 1200 400 150 340 Output Total 0 10 50 20 20 Balance 130 1190 350 130 320 Intake, IV 100 1100 120 100 Intake, Oral 30 100 280 150 240 Number 1 Bowel Movements Output, Chest 0 10 50 20 Tube Drainage Output, 20 Drainage Output, Urine 0 Patient 133 lb Weight Physical Exam: Breath sounds clear bilaterally. All drainage and chest tube container. Results Last 48 Hours of Labs: Laboratory Tests 04/04 04/04 1510 0420 Chemistry Sodium (137 - 145 mmol/L) 143 Potassium (3.5 - 5.1 mmol/L) 4.2 Chloride (98 - 107 mmol/L) 101 Carbon Dioxide (22 - 30 mmol/L) 18 L Anion Gap (5 - 16) 24 H BUN (9 - 20 mg/dL) 81 H Creatinine (0.7 - 1.2 mg/dL) 5.3 *H Estimated GFR (>60 ml/min) 11 L Glucose (65 - 99 mg/dL) 94 Calcium (8.4 - 10.2 mg/dL) 9.0 Phosphorus (2.5 - 4.5 mg/dL) 4.7 H Magnesium (1.6 - 2.3 mg/dL) 1.7 Total Bilirubin (0.2 - 1.3 mg/dL) 2.1 H Direct Bilirubin (< 0.4 mg/dL) 1.8 H GGT (15 - 73 U/L) 63 AST (17 - 59 U/L) 34 ALT (21 - 72 U/L) 31 Lactate Dehydrogenase (313 - 618 U/L) 477 Albumin (3.5 - 5.0 g/dL) 3.9 Hematology CBC w Diff Pending NO MAN DIFF REQ WBC (4.8 - 10.8 /CUMM) Pending 16.4 H RBC (4.70 - 6.10 /CUMM) Pending 2.80 L Hgb (14.0 - 18.0 G/DL) Pending 6.8 *L Hct (42 - 52 %) Pending 21.9 L MCV (80.0 - 94.0 FL) Pending 78.2 L MCH (27.0 - 31.0 PG) Pending 24.3 L RDW (11.5 - 14.5 %) Pending 22.4 H Plt Count (130 - 400 /CUMM) Pending 135 MPV (7.4 - 10.4 FL) Pending 13.2 H Gran % (42.2 - 75.2 %) 92.9 H Lymphocytes % (20.5 - 51.1 %) 2.0 L Monocytes % (1.7 - 9.3 %) 5.1 Eosinophils % (0 - 5 %) 0 Basophils % (0.0 - 2.0 %) 0 Absolute Granulocytes (1.4 - 6.5 /CUMM) 15.2 H Absolute Lymphocytes (1.2 - 3.4 /CUMM) 0.3 L Absolute Monocytes (0.10 - 0.60 /CUMM) 0.8 H Absolute Eosinophils (0.0 - 0.7 /CUMM) 0 Absolute Basophils (0.0 - 0.2 /CUMM) 0 PUBS MCHC (33.0 - 37.0 G/DL) Pending 31.0 L 04/03 04/03 1825 0430 Chemistry Sodium (137 - 145 mmol/L) 142 Potassium (3.5 - 5.1 mmol/L) 4.2 Chloride (98 - 107 mmol/L) 101 Carbon Dioxide (22 - 30 mmol/L) 19 L Anion Gap (5 - 16) 22 H BUN (9 - 20 mg/dL) 70 H Creatinine (0.7 - 1.2 mg/dL) 4.5 H Estimated GFR (>60 ml/min) 13 L Glucose (65 - 99 mg/dL) 90 Calcium (8.4 - 10.2 mg/dL) 9.1 Phosphorus (2.5 - 4.5 mg/dL) 4.3 Magnesium (1.6 - 2.3 mg/dL) 1.7 Total Bilirubin (0.2 - 1.3 mg/dL) 2.0 H AST (17 - 59 U/L) 25 ALT (21 - 72 U/L) 25 Albumin (3.5 - 5.0 g/dL) 4.0 Hematology CBC w Diff MAN DIFF ORDERED NO MAN DIFF REQ WBC (4.8 - 10.8 /CUMM) 3.5 L 14.7 H RBC (4.70 - 6.10 /CUMM) 3.38 L 3.08 L Hgb (14.0 - 18.0 G/DL) 8.4 L 7.7 L Hct (42 - 52 %) 26.5 L 24.1 L MCV (80.0 - 94.0 FL) 78.3 L 78.4 L MCH (27.0 - 31.0 PG) 24.8 L 25.1 L RDW (11.5 - 14.5 %) 22.3 H 21.9 H Plt Count (130 - 400 /CUMM) 154 149 MPV (7.4 - 10.4 FL) 12.6 H 12.3 H Gran % (42.2 - 75.2 %) 80.8 H 87.4 H Lymphocytes % (20.5 - 51.1 %) 14.0 L 4.8 L Monocytes % (1.7 - 9.3 %) 4.9 7.6 Eosinophils % (0 - 5 %) 0.3 0.2 Basophils % (0.0 - 2.0 %) 0 0 Absolute Granulocytes (1.4 - 6.5 /CUMM) 2.8 12.8 H Segmented Neutrophils (42.2 - 75.2 %) 79 H Band Neutrophils (0.0 - 5.0 %) 12 H Absolute Lymphocytes (1.2 - 3.4 /CUMM) 0.5 L 0.7 L Lymphocytes (20.5 - 51.1 %) 7 L Monocytes (1.7 - 9.3 %) 2 Absolute Monocytes (0.10 - 0.60 /CUMM) 0.2 1.1 H Absolute Eosinophils (0.0 - 0.7 /CUMM) 0 0 Absolute Basophils (0.0 - 0.2 /CUMM) 0 0 Platelet Estimate (ADEQUATE) ADEQUATE Polychromasia 2+ Hypochromic-Microcytic 2+ Poikilocytosis 2+ Target Cells 1+ Ovalocytes 1+ Schistocytes 1+ PUBS MCHC (33.0 - 37.0 G/DL) 31.6 L 32.0 L Recent Imaging Studies: Chest x-ray shows fairly good clearing of right pleural effusion. Assessment/Plan Assessment/Plan Appears to be stable process with minimal translocation of fluid. I spoke with Dr. Corey today and she is having a family meeting tomorrow. We will leave the catheter in place for now plan on getting it out tomorrow and observe the patient. Hopefully he has eliminated any communication and there will be no further hepatic hydrothorax.
[2017-04-04 15:40] LABS: HEMATOCRIT 24.8 % (42-52); MEAN CORPUSCULAR HGB CONC 32.3 G/DL (33.0-37.0); MEAN CORPUSCULAR VOLUME 77.3 FL (80.0-94.0); MEAN PLATELET VOLUME 12.2 FL (7.4-10.4); RBC DISTRIBUTION WIDTH 20.3 % (11.5-14.5); RED BLOOD CELL CT 3.21 /CUMM (4.70-6.10); WHITE BLOOD CELL COUNT 12.9 /CUMM (4.8-10.8)
[2017-04-04 15:45] LABS: PLATELET COUNT 127 /CUMM (130-400)
[2017-04-04 16:00] VITALS: BP 96/64
--- NOTE | 2017-04-04 17:50 | PN- Nephrology ---
Assessment/Plan Assessment: 1. 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 Peritonitis secondary to Escherichia coli and Pseudomonas in setting of a trans-migrated pleural catheter - appears to be resolving with persistent leukocytosis which now may be improving. If leukocytosis persists or fever recurs we'll need to look for another source i.e. an infected cyst(s). 3. Severe recurrent ascites presumably secondary to portal hypertension 4. Recurrent right pleural effusion - ?hepatic hydrothorax 5. Generalized cachexia Suggestion: 1. Hemodialysis today - completed with no significant fluid removal and with one unit of packed RBC transfusion 2. Next hemodialysis for Thursday 04/06 3. For HIDA scan today 4. If WBC does not normalize and/or he becomes febrile again he will need another CT of abdomen and pelvis to look for a possible infected cyst or cysts 5. He may need another paracentesis soon 6. Once his acute issues have resolved, will address long-term planning 7. Family meeting scheduled for late Tuesday Subjective Subjective: Patient continues to have some nausea, poor appetite and nonfocal abdominal discomfort. He remains afebrile and all recent cultures have been negative with a decreasing ascitic WBC count. He remains oligoanuric in the setting of relatively low blood pressures. Seen with hemodialysis today which was relatively uneventful but which was unable to remove any significant amount of fluid because of his blood pressure. He was transfused 1 unit of packed RBCs with dialysis. Objective Vital Signs and I&Os Vital Signs Date Time Temp Pulse Resp B/P B/P Pulse O2 O2 Flow FiO2 Mean Ox Delivery Rate 04/04 1600 97.8 84 20 96/64 96 Room Air 04/04 1113 76 90/50 04/04 0800 97.4 80 18 94/70 96 Room Air 04/04 0400 94 04/04 0000 96 Room Air 04/04 0000 97.9 89 18 72/49 96 Room Air 04/03 2000 95 Room Air Intake & Output 04/04 1600 04/04 0400 04/03 1600 04/03 0400 04/02 1600 04/02 0400 Intake Total 130 1200 550 329 012 4721 Output Total 0 10 70 20 30 Balance 130 1190 480 238 460 1992 Intake, IV 100 1100 120 100 256 720 Intake, Oral 30 100 430 240 360 400 Number 1 1 Bowel Movements Output, Chest 0 10 70 30 Tube Drainage Output, 20 Drainage Output, Urine 0 Patient 133 lb 132 lb Weight Weight Chair scale Measurement Method Physical Exam: General: Cachectic appearing white male in NAD Skin: No rash or jaundice HEENT: Conjunctivae pale, sclerae anicteric, mucous membranes dry Neck: Without masses or thyromegaly, no supraclavicular or cervical adenopathy Chest: Clear anterolaterally Heart: Regular rate and rhythm without S3 or rub Abdomen: Soft, distended with mild diffuse tenderness and with cystic hepatomegaly and ascites Extremities: Without cyanosis or edema Neuro: No focal findings, no asterixis or myoclonus Results Pertinent Lab Results: Laboratory Tests 04/04 04/04 1510 0420 Chemistry Sodium (137 - 145 mmol/L) 143 Potassium (3.5 - 5.1 mmol/L) 4.2 Chloride (98 - 107 mmol/L) 101 Carbon Dioxide (22 - 30 mmol/L) 18 L Anion Gap (5 - 16) 24 H BUN (9 - 20 mg/dL) 81 H Creatinine (0.7 - 1.2 mg/dL) 5.3 *H Estimated GFR (>60 ml/min) 11 L Glucose (65 - 99 mg/dL) 94 Calcium (8.4 - 10.2 mg/dL) 9.0 Phosphorus (2.5 - 4.5 mg/dL) 4.7 H Magnesium (1.6 - 2.3 mg/dL) 1.7 Total Bilirubin (0.2 - 1.3 mg/dL) 2.1 H Direct Bilirubin (< 0.4 mg/dL) 1.8 H GGT (15 - 73 U/L) 63 AST (17 - 59 U/L) 34 ALT (21 - 72 U/L) 31 Lactate Dehydrogenase (313 - 618 U/L) 477 Albumin (3.5 - 5.0 g/dL) 3.9 Hematology CBC w Diff MAN DIFF ORDERED NO MAN DIFF REQ WBC (4.8 - 10.8 /CUMM) 12.9 H 16.4 H RBC (4.70 - 6.10 /CUMM) 3.21 L 2.80 L Hgb (14.0 - 18.0 G/DL) 8.0 L 6.8 *L Hct (42 - 52 %) 24.8 L 21.9 L MCV (80.0 - 94.0 FL) 77.3 L 78.2 L MCH (27.0 - 31.0 PG) 25.0 L 24.3 L RDW (11.5 - 14.5 %) 20.3 H 22.4 H Plt Count (130 - 400 /CUMM) 127 L 135 MPV (7.4 - 10.4 FL) 12.2 H 13.2 H Gran % (42.2 - 75.2 %) 92.9 H Lymphocytes % (20.5 - 51.1 %) 2.0 L Monocytes % (1.7 - 9.3 %) 5.1 Eosinophils % (0 - 5 %) 0 Basophils % (0.0 - 2.0 %) 0 Absolute Granulocytes (1.4 - 6.5 /CUMM) 15.2 H Segmented Neutrophils (42.2 - 75.2 %) 94 H Absolute Lymphocytes (1.2 - 3.4 /CUMM) 0.3 L Lymphocytes (20.5 - 51.1 %) 3 L Monocytes (1.7 - 9.3 %) 3 Absolute Monocytes (0.10 - 0.60 /CUMM) 0.8 H Absolute Eosinophils (0.0 - 0.7 /CUMM) 0 Absolute Basophils (0.0 - 0.2 /CUMM) 0 Platelet Estimate (ADEQUATE) DECREASED Polychromasia 1+ Hypochromic-Microcytic 2+ Poikilocytosis 1+ Basophilic Stippling RARE Anisocytosis 2+ Microcytic Cells 2+ Target Cells FEW Schistocytes RARE PUBS MCHC (33.0 - 37.0 G/DL) 32.3 L 31.0 L 04/03 04/03 1825 0430 Chemistry Sodium (137 - 145 mmol/L) 142 Potassium (3.5 - 5.1 mmol/L) 4.2 Chloride (98 - 107 mmol/L) 101 Carbon Dioxide (22 - 30 mmol/L) 19 L Anion Gap (5 - 16) 22 H BUN (9 - 20 mg/dL) 70 H Creatinine (0.7 - 1.2 mg/dL) 4.5 H Estimated GFR (>60 ml/min) 13 L Glucose (65 - 99 mg/dL) 90 Calcium (8.4 - 10.2 mg/dL) 9.1 Phosphorus (2.5 - 4.5 mg/dL) 4.3 Magnesium (1.6 - 2.3 mg/dL) 1.7 Total Bilirubin (0.2 - 1.3 mg/dL) 2.0 H AST (17 - 59 U/L) 25 ALT (21 - 72 U/L) 25 Albumin (3.5 - 5.0 g/dL) 4.0 Hematology CBC w Diff MAN DIFF ORDERED NO MAN DIFF REQ WBC (4.8 - 10.8 /CUMM) 3.5 L 14.7 H RBC (4.70 - 6.10 /CUMM) 3.38 L 3.08 L Hgb (14.0 - 18.0 G/DL) 8.4 L 7.7 L Hct (42 - 52 %) 26.5 L 24.1 L MCV (80.0 - 94.0 FL) 78.3 L 78.4 L MCH (27.0 - 31.0 PG) 24.8 L 25.1 L RDW (11.5 - 14.5 %) 22.3 H 21.9 H Plt Count (130 - 400 /CUMM) 154 149 MPV (7.4 - 10.4 FL) 12.6 H 12.3 H Gran % (42.2 - 75.2 %) 80.8 H 87.4 H Lymphocytes % (20.5 - 51.1 %) 14.0 L 4.8 L Monocytes % (1.7 - 9.3 %) 4.9 7.6 Eosinophils % (0 - 5 %) 0.3 0.2 Basophils % (0.0 - 2.0 %) 0 0 Absolute Granulocytes (1.4 - 6.5 /CUMM) 2.8 12.8 H Segmented Neutrophils (42.2 - 75.2 %) 79 H Band Neutrophils (0.0 - 5.0 %) 12 H Absolute Lymphocytes (1.2 - 3.4 /CUMM) 0.5 L 0.7 L Lymphocytes (20.5 - 51.1 %) 7 L Monocytes (1.7 - 9.3 %) 2 Absolute Monocytes (0.10 - 0.60 /CUMM) 0.2 1.1 H Absolute Eosinophils (0.0 - 0.7 /CUMM) 0 0 Absolute Basophils (0.0 - 0.2 /CUMM) 0 0 Platelet Estimate (ADEQUATE) ADEQUATE Polychromasia 2+ Hypochromic-Microcytic 2+ Poikilocytosis 2+ Target Cells 1+ Ovalocytes 1+ Schistocytes 1+ PUBS MCHC (33.0 - 37.0 G/DL) 31.6 L 32.0 L 04/02 04/01 0420 2225 Chemistry Sodium (137 - 145 mmol/L) 144 Potassium (3.5 - 5.1 mmol/L) 3.8 Chloride (98 - 107 mmol/L) 103 Carbon Dioxide (22 - 30 mmol/L) 22 Anion Gap (5 - 16) 19 H BUN (9 - 20 mg/dL) 50 H Creatinine (0.7 - 1.2 mg/dL) 3.7 H Estimated GFR (>60 ml/min) 16 L Glucose (65 - 99 mg/dL) 94 Calcium (8.4 - 10.2 mg/dL) 9.1 Phosphorus (2.5 - 4.5 mg/dL) 3.9 Magnesium (1.6 - 2.3 mg/dL) 1.9 Total Bilirubin (0.2 - 1.3 mg/dL) 1.9 H AST (17 - 59 U/L) 19 ALT (21 - 72 U/L) 27 Troponin I (<0.11 ng/ml) 0.03 Albumin (3.5 - 5.0 g/dL) 3.9 Hematology CBC w Diff NO MAN DIFF REQ WBC (4.8 - 10.8 /CUMM) 14.8 H RBC (4.70 - 6.10 /CUMM) 3.33 L Hgb (14.0 - 18.0 G/DL) 8.2 L Hct (42 - 52 %) 26.4 L MCV (80.0 - 94.0 FL) 79.2 L MCH (27.0 - 31.0 PG) 24.5 L RDW (11.5 - 14.5 %) 21.8 H Plt Count (130 - 400 /CUMM) 149 MPV (7.4 - 10.4 FL) 11.9 H Gran % (42.2 - 75.2 %) 86.1 H Lymphocytes % (20.5 - 51.1 %) 3.2 L Monocytes % (1.7 - 9.3 %) 10.5 H Eosinophils % (0 - 5 %) 0.1 Basophils % (0.0 - 2.0 %) 0.1 Absolute Granulocytes (1.4 - 6.5 /CUMM) 12.8 H Absolute Lymphocytes (1.2 - 3.4 /CUMM) 0.5 L Absolute Monocytes (0.10 - 0.60 /CUMM) 1.6 H Absolute Eosinophils (0.0 - 0.7 /CUMM) 0 Absolute Basophils (0.0 - 0.2 /CUMM) 0 PUBS MCHC (33.0 - 37.0 G/DL) 30.9 L
[2017-04-04 20:00] VITALS: BP 108/68
[2017-04-05] VITALS: BP 130/80
[2017-04-05 04:47] LABS: ABSOLUTE BASOPHIL COUNT 0 /CUMM (0.0-0.2); ABSOLUTE EOSINOPHIL COUNT 0 /CUMM (0.0-0.7); ABSOLUTE GRANULOCYTE CT 10.5 /CUMM (1.4-6.5); ABSOLUTE LYMPH COUNT 0.8 /CUMM (1.2-3.4); ABSOLUTE MONOCYTE COUNT 1.2 /CUMM (0.10-0.60); BASOPHIL % 0 % (0.0-2.0); EOSINOPHIL % 0.1 % (0-5); GRANULOCYTE % 83.7 % (42.2-75.2); HEMATOCRIT 27.7 % (42-52); MEAN CORPUSCULAR HGB 24.8 PG (27.0-31.0); MEAN CORPUSCULAR HGB CONC 31.8 G/DL (33.0-37.0); MEAN PLATELET VOLUME 12.6 FL (7.4-10.4); PLATELET COUNT 134 /CUMM (130-400); RBC DISTRIBUTION WIDTH 20.9 % (11.5-14.5); RED BLOOD CELL CT 3.55 /CUMM (4.70-6.10); WHITE BLOOD CELL COUNT 12.5 /CUMM (4.8-10.8)
--- NOTE | 2017-04-05 07:35 | PN- Resident CRCU ---
See Addendum Subjective HPI/CRCU Issues: Catheter-associated Peritonitis SHELBY on CKD on HD Nonsustained SVT - resolved Hyperkalemia - resolved Acute hypoxic respiratory failure - resolved 24 Hour Events: s/p 1 unit of PRBC yesterday. Repeat CBC shows acceptable rise in Hb. No acute events overnight. Patient scheduled for HIDA scan this morning to assess for biliary stasis. His direct/total bilirubin show a steady increase. Objective Vital Signs & I&O Last 8 Hrs of Vitals and I&O: Intake & Output 04/05 1600 Intake Total Output Total Balance Patient 144 lb Weight Exam General Appearance: no apparent distress, alert, awake, comfortable Head: atraumatic, normal appearance Respiratory: normal breath sounds, chest non-tender Cardiovascular: regular rate/rhythm Gastrointestinal: soft, non-tender, distention, palpable cysts Extremities: no edema Cranial Nerves: normal hearing, normal speech Skin: intact, normal color Skin Temp/Moisture Exam: Warm/Dry Sepsis Skin Exam (color): Normal for Ethnicity Current Medications: Current Medications Sig/Lola Start time Last Medication Dose Route Stop Time Status Admin Acetaminophen 1,000 MG ONCE ONE 04/05 0600 DC 04/05 N/A 1 UNIT IV 04/05 0614 0556 Acetaminophen 650 MG Q4P PRN 04/01 1815 AC 04/02 PO 1415 Albumin Human 25 GM Q8 03/24 2200 04/05 IV 0515 Benzocaine/Menthol 1 MYLES Q2P PRN 04/03 1100 AC PO Ceftazidime 1,000 MG Q24H 04/04 0930 04/05 IV 0857 Collagenase 1 BENEDICTO BID 04/02 1100 AC 04/04 TOP 2136 Desvenlafaxine 50 MG MoWeFr@1300 03/30 1300 AC 04/04 Succinate PO 1232 Epoetin Bryan 3,000 UNIT 03/30 1000 AC 04/04 IV 1112 Glycerin 2 SPRAY Q2P PRN 04/01 2045 AC PO Heparin Sodium 5,000 UNIT Q8 03/28 1444 AC 04/05 (Porcine) SC 0515 Magnesium Sulfate 1 GM ONCE ONE 04/04 0930 NJ 04/04 Dextrose/Water 100 ML IV 04/04 1329 1232 Morphine Sulfate 2 MG ONCE ONE 04/04 1730 DC 04/04 IV 04/04 1731 1729 Multivitamins 1 TAB 1700 03/25 1700 AC 04/04 PO 1853 Omeprazole 40 MG DAILY AC 03/25 1648 AC 04/04 PO 0630 Polyethylene Glycol 17 GM DAILY PRN 04/03 1100 AC 04/04 PO 1426 Promethazine HCl 12.5 MG Q4P PRN 03/31 1745 AC 04/05 IV 04/07 1744 0344 Sevelamer Carbonate 1,600 MG WITH MEALS 03/24 1700 AC 04/04 PO 1853 Verapamil HCl 180 MG DAILY 03/25 0745 AC 03/29 PO 0934 Impression/Plan Impression/Problem List Impression: Mr. Tijerina is a 66 yo m with a PMH of PKD, Polycystic liver disease, portal HTN , HTN, HLD, umbilical hernia repair, colon ademona, GERD who presented to the ED with NVD with progressively worsened abdominal distention from ascitic fluid. Assessment and Plan: Hypotension: * His blood pressure has been running on the low side. * He received Levophed for a few hours peripherally on 04/01 for a couple of hours. . * Currently refuses for a central line placement for administeration of pressors. * Will give bolus if necessary to maintain his blood pressure. Nonsustained SVT - resolved Patient experienced 2 episodes of SVT with HR up to 180s. He was asymptomatic during both events. During the first event he was administered IV Metoprolol 5 mg. The second event spontaneously resolved and did not require medical management * Continue Metoprolol 6.25 mg BID * Cardiology recommendations appreciated * Will administer Adenosine for any acute events * Patient to continue on tele monitoring for now. Acute Hypoxic Respiratory Failure s/p Pleurx Cath removal: Patient has a patent connection between abdominal cavity and pleural space 2/2 migrated indwelling catheter, leading to transfer of ascitic fluid to the pleural space. A pig tail was placed. As per Dr. Carson options are to watch and wait to see if spontaneously resolves vs surgical intervention. PA/Lateral CXR on 03/25 for pleural effusion demonstrated no significant pleural effusion or evidence of pneumothorax. ECHO demonstrated Aortic sclerosis is present with no valvular stenosis or insufficiency, a very small pericardial effusion, EF 55-60 % * Continue pigtail catheter drainage connected to water seal. * Surgery recommended to leave the catheter in place for now. If the connection does not seal on its own, the patient may require surgery. * Since output through the chest tube has been minimal, the chest tube may be taken out. * His output through the Pleurx catheter has been very low which is suggestive that perhaps the connection is closing on its own. * TRC/nebs, oxygen supplementation PRN. Remains on room air. * CXR 03/29 showed no pleural effusion or acute abnormality. Catheter-associated Peritonitis: Patient had an indwelling pleural catheter placed in July 2016 for pleural effusion that migrated into the abdominal cavity. Considering that the patient's catheter was never removed it can be a possible source of infection. He had another catheter placed in the R lung that was eventually removed. CT abdomen/ pelvis on admission demonstrated the resolution of his R-side pleural effusion. He gets 1L of ascitic fluid drained from the migrated Pleurx catheter on . Prior to coming to the hospital it was last drained on Tuesday by his visiting nurse. He had a diagnostic and therapeutic paracentesis performed. His ascitic fluid white count was 8222. Repeat paracentesis demonstrated a transudative ascitic fluid with SAAG > 1. His ascitic fluid culture grew GNR and he was started on Ceftazidime. Vancomycin was discontinued. * ID recommendations appreciated. * His white count has been trending down. * Blood cultures - pending * RUQ U/S demonstrated extensive cystic structures and free fluid present throughout the abdomen. * Had a diagnostic and therapeutic paracentesis 03/31. * Ascitic fluid studies not suggestive of SBP. * Will send for C.diff if he has diarrhea. * Continue Ceftazidime daily. Today is day 14th. * Continue IV albumin 25gm q8. * Will obtain HIDA scan to assess for biliary function. His previous CT&U/S have shown poor visualization of the gallbladder. There has been an uptrend in his LFTs though that could also be due to the DesVenlafaxine that was started. * HIDA scan pending SHELBY on CKD most likely 2/2 dehydration in the setting of his CKD from PKD: Patient is reported to have a baseline Cr of 2-3. His Cr initially eliceo on admission but has trended down. Patient had an Evin cath placed * Continue to monitor renal function * Continue IV Albumin 25 gm q8 * Nephrology recommendations appreciated. * He likely has ESRD secondary to ADPKD * Dialysis M/W/F * Continue Epogen with dialysis. Depression: * Patient requested for a psych consult as he feels depressed. * Psych has suggested starting him on DesVenlafaxine 50mg daily. * Renal and GI have approved the use of the medication from their standpoint. However, recommend monitoring of LFTs while on the drug. * Patient is agreeable to start the medication. History of PKD, Polycystic liver disease: Patient reported he had an appt at [facility] in which he was told he wouldn't receive a transplant until the resolution of his ascitic fluid. CT abd/pel demonstrated numerous cysts effectively replacing the normal hepatic and bilateral renal parenchyma Diet: Regular Diet with 2g K restriction. DVT Prophylaxis: ALPS Code Status: Full Problem List: 1. Polycystic liver disease 2. Polycystic kidney disease Pain Ratin Tomorrow's Labs & Rationales: CBC, ICU bundle Plan DVT/Prophylaxis: mechanical
--- NOTE | 2017-04-05 09:28 | RADIOLOGY REPORT ---
EXAMINATION: XR PORTABLE CHEST , dated 04/03/2017 at 6:33 AM CLINICAL INFORMATION: Follow-up. COMPARISON: 03/29/2017 at 4:42 PM. TECHNIQUE: Portable frontal view of the chest was obtained. FINDINGS: The lung volumes are low. No focal findings are identified. No significant abnormality is noted involving the heart, lungs, mediastinum, bony thorax or soft tissues. The chest tube in the right lung base is again visualized, not significantly changed by comparison with the prior study. A large caliber central catheter is present with the tip in the distal SVC. IMPRESSION: Low lung volumes, stable compared to the prior study of 03/29/2017 at 4:42 PM.
--- NOTE | 2017-04-05 15:06 | PN- Infect Dx ---
Subjective Subjective: Afebrile. He continues to complain of nausea and some abdominal discomfort. Objective Last 24 Hrs of Vital Signs/I&O Vital Signs Date Time Temp Pulse Resp B/P B/P Pulse O2 O2 Flow FiO2 Mean Ox Delivery Rate 04/05 0800 97 Room Air 04/05 0400 94 Room Air 04/05 0000 94 Room Air 04/05 0000 98.6 58 18 130/80 94 Room Air 04/04 2000 96 Room Air 04/04 2000 98.6 90 24 108/68 96 Room Air 04/04 1600 97.8 84 20 96/64 96 Room Air 04/04 1600 96 Room Air Intake & Output 04/05 1600 04/05 0800 04/05 0000 Intake Total 0 250 370 Output Total 90 0 Balance -90 250 370 Intake, IV 250 100 Intake, Oral 0 270 Number 0 Bowel Movements Output, Chest 90 Tube Drainage Output, Urine 0 Patient 144 lb Weight Physical Exam Other Physical Findings: He appears chronically ill but in no acute distress Neck dialysis catheter in the right IJ with no inflammation at the site Lungs are clear; pigtail catheter on the right with no output recorded yesterday but 90 mL overnight Heart regular rhythm with no murmur Abdomen is distended, mildly tender on palpation, decreased bowel sounds Extremities no cyanosis, clubbing or edema Results Last 24 Hours of Lab Results: Laboratory Tests 04/05 04/04 0355 1510 Chemistry Sodium (137 - 145 mmol/L) 144 Potassium (3.5 - 5.1 mmol/L) 3.3 L Chloride (98 - 107 mmol/L) 100 Carbon Dioxide (22 - 30 mmol/L) 23 Anion Gap (5 - 16) 21 H BUN (9 - 20 mg/dL) 45 H Creatinine (0.7 - 1.2 mg/dL) 3.2 H Estimated GFR (>60 ml/min) 19 L Glucose (65 - 99 mg/dL) 105 H Calcium (8.4 - 10.2 mg/dL) 9.0 Phosphorus (2.5 - 4.5 mg/dL) 2.8 Magnesium (1.6 - 2.3 mg/dL) 2.1 Total Bilirubin (0.2 - 1.3 mg/dL) 2.6 H Direct Bilirubin (< 0.4 mg/dL) 2.0 H AST (17 - 59 U/L) 34 ALT (21 - 72 U/L) 32 Alkaline Phosphatase (< 127 U/L) 131 H Total Protein (6.3 - 8.2 g/dL) 6.4 Albumin (3.5 - 5.0 g/dL) 4.1 Hematology CBC w Diff MAN DIFF ORDERED MAN DIFF ORDERED WBC (4.8 - 10.8 /CUMM) 12.5 H 12.9 H RBC (4.70 - 6.10 /CUMM) 3.55 L 3.21 L Hgb (14.0 - 18.0 G/DL) 8.8 L 8.0 L Hct (42 - 52 %) 27.7 L 24.8 L MCV (80.0 - 94.0 FL) 78.0 L 77.3 L MCH (27.0 - 31.0 PG) 24.8 L 25.0 L RDW (11.5 - 14.5 %) 20.9 H 20.3 H Plt Count (130 - 400 /CUMM) 134 127 L MPV (7.4 - 10.4 FL) 12.6 H 12.2 H Gran % (42.2 - 75.2 %) 83.7 H Lymphocytes % (20.5 - 51.1 %) 6.8 L Monocytes % (1.7 - 9.3 %) 9.4 H Eosinophils % (0 - 5 %) 0.1 Basophils % (0.0 - 2.0 %) 0 Absolute Granulocytes (1.4 - 6.5 /CUMM) 10.5 H Segmented Neutrophils (42.2 - 75.2 %) 90 H 94 H Band Neutrophils (0.0 - 5.0 %) 1 Absolute Lymphocytes (1.2 - 3.4 /CUMM) 0.8 L Lymphocytes (20.5 - 51.1 %) 4 L 3 L Monocytes (1.7 - 9.3 %) 5 3 Absolute Monocytes (0.10 - 0.60 /CUMM) 1.2 H Absolute Eosinophils (0.0 - 0.7 /CUMM) 0 Absolute Basophils (0.0 - 0.2 /CUMM) 0 Platelet Estimate (ADEQUATE) DECREASED DECREASED Polychromasia 1+ Hypochromic-Microcytic 2+ 2+ Poikilocytosis 1+ Basophilic Stippling RARE Anisocytosis 1+ 2+ Microcytic Cells 2+ Target Cells 1+ FEW Ovalocytes 1+ Schistocytes RARE PUBS MCHC (33.0 - 37.0 G/DL) 31.8 L 32.3 L Last 24 Hours of Clarke Results: Blood cultures April 01 negative Assessment/Plan Impression: Condition remains poor, with intermittent hypotension and persistent nausea, anorexia and poor po intake. He remains afebrile with his white blood cell count decreased on Ceftazidime now 2 weeks status post removal of the migrated Pleurx catheter, which resulted in a peritonitis secondary to Escherichia coli and Pseudomonas, with his recent paracentesis revealing a marked decrease in his white blood cell count. He is undergoing a HIDA scan today to rule out cholecystitis, given the persistent nausea and increasing bilirubin. The possibility of an infected renal cyst must also be considered and, if his white blood cell count remains elevated, further evaluation for this may be necessary.. He continues to require dialysis for renal failure, possibly secondary to sepsis superimposed on his underlying polycystic kidney (and liver) disease. Suggestion: 1. Follow-up HIDA scan 2. Consider further evaluation to rule out an infected renal cyst if his HIDA is negative and his white blood cell count remains elevated 3. Further management with regard to his nutrition per Medicine 4. Further management of his pigtail catheter and pleural-peritoneal fistula per Pulmonary and Thoracic surgery 5. If the HIDA is negative discontinue Ceftazidime and follow off antibiotics
--- NOTE | 2017-04-05 15:48 | PN- Nephrology ---
Assessment/Plan Assessment: 1. 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 Peritonitis secondary to Escherichia coli and Pseudomonas in setting of a trans-migrated pleural catheter - appears to be resolving with persistent leukocytosis which now seems to be slowly improving. If leukocytosis persists or fever recurs we'll need to look for another source i.e. an infected cyst(s). 3. Severe recurrent ascites presumably secondary to portal hypertension 4. Recurrent right pleural effusion - ?hepatic hydrothorax 5. Generalized cachexia Suggestion: 1. HIDA scan results pending 2. If HIDA scan negative for indeterminate and WBC fails to normalize or he develops fever again then we should try to assess for a possible infected cyst(s ). 3. Hemodialysis tomorrow 4. He may need another paracentesis 5. Once his acute issues have resolved, will address long-term planning 6. Family meeting scheduled for late tomorrow afternoon Subjective Subjective: Feels about the same with nausea and no appetite. Denies shortness of breath. Had HIDA scan earlier today which has profoundly tired him out. Results pending. WBC is slowly falling and he remains afebrile. Objective Vital Signs and I&Os Vital Signs Date Time Temp Pulse Resp B/P B/P Pulse O2 O2 Flow FiO2 Mean Ox Delivery Rate 04/05 0800 97 Room Air 04/05 0400 94 Room Air 04/05 0000 94 Room Air 04/05 0000 98.6 58 18 130/80 94 Room Air 04/04 2000 96 Room Air 04/04 2000 98.6 90 24 108/68 96 Room Air 04/04 1600 97.8 84 20 96/64 96 Room Air 04/04 1600 96 Room Air Intake & Output 04/05 1600 04/05 0400 04/04 1600 04/04 0400 04/03 1600 04/03 0400 Intake Total 095 213 2306 1200 550 340 Output Total 90 0 0 10 70 20 Balance 616 523 9469 1190 480 320 Intake, Blood 350 Product Intake, 800 Dialysate Intake, IV 250 237 067 4038 120 100 Intake, Oral 0 270 270 100 430 240 Number 0 3 1 Bowel Movements Output, Chest 90 0 10 70 Tube Drainage Output, 20 Drainage Output, Urine 0 0 Patient 144 lb 141 lb 133 lb Weight Weight Chair scale Measurement Method Physical Exam: General: Cachectic appearing white male in NAD Skin: No rash or jaundice HEENT: Conjunctivae pale, sclerae anicteric, mucous membranes dry Neck: Without masses or thyromegaly, no supraclavicular or cervical adenopathy Chest: Clear anterolaterally Heart: Regular rate and rhythm without S3 or rub Abdomen: Soft, distended with mild diffuse tenderness and with cystic hepatomegaly and ascites Extremities: Without cyanosis or edema Neuro: No focal findings, no asterixis or myoclonus Results Pertinent Lab Results: Laboratory Tests 04/05 04/04 0355 1510 Chemistry Sodium (137 - 145 mmol/L) 144 Potassium (3.5 - 5.1 mmol/L) 3.3 L Chloride (98 - 107 mmol/L) 100 Carbon Dioxide (22 - 30 mmol/L) 23 Anion Gap (5 - 16) 21 H BUN (9 - 20 mg/dL) 45 H Creatinine (0.7 - 1.2 mg/dL) 3.2 H Estimated GFR (>60 ml/min) 19 L Glucose (65 - 99 mg/dL) 105 H Calcium (8.4 - 10.2 mg/dL) 9.0 Phosphorus (2.5 - 4.5 mg/dL) 2.8 Magnesium (1.6 - 2.3 mg/dL) 2.1 Total Bilirubin (0.2 - 1.3 mg/dL) 2.6 H Direct Bilirubin (< 0.4 mg/dL) 2.0 H AST (17 - 59 U/L) 34 ALT (21 - 72 U/L) 32 Alkaline Phosphatase (< 127 U/L) 131 H Total Protein (6.3 - 8.2 g/dL) 6.4 Albumin (3.5 - 5.0 g/dL) 4.1 Hematology CBC w Diff MAN DIFF ORDERED MAN DIFF ORDERED WBC (4.8 - 10.8 /CUMM) 12.5 H 12.9 H RBC (4.70 - 6.10 /CUMM) 3.55 L 3.21 L Hgb (14.0 - 18.0 G/DL) 8.8 L 8.0 L Hct (42 - 52 %) 27.7 L 24.8 L MCV (80.0 - 94.0 FL) 78.0 L 77.3 L MCH (27.0 - 31.0 PG) 24.8 L 25.0 L RDW (11.5 - 14.5 %) 20.9 H 20.3 H Plt Count (130 - 400 /CUMM) 134 127 L MPV (7.4 - 10.4 FL) 12.6 H 12.2 H Gran % (42.2 - 75.2 %) 83.7 H Lymphocytes % (20.5 - 51.1 %) 6.8 L Monocytes % (1.7 - 9.3 %) 9.4 H Eosinophils % (0 - 5 %) 0.1 Basophils % (0.0 - 2.0 %) 0 Absolute Granulocytes (1.4 - 6.5 /CUMM) 10.5 H Segmented Neutrophils (42.2 - 75.2 %) 90 H 94 H Band Neutrophils (0.0 - 5.0 %) 1 Absolute Lymphocytes (1.2 - 3.4 /CUMM) 0.8 L Lymphocytes (20.5 - 51.1 %) 4 L 3 L Monocytes (1.7 - 9.3 %) 5 3 Absolute Monocytes (0.10 - 0.60 /CUMM) 1.2 H Absolute Eosinophils (0.0 - 0.7 /CUMM) 0 Absolute Basophils (0.0 - 0.2 /CUMM) 0 Platelet Estimate (ADEQUATE) DECREASED DECREASED Polychromasia 1+ Hypochromic-Microcytic 2+ 2+ Poikilocytosis 1+ Basophilic Stippling RARE Anisocytosis 1+ 2+ Microcytic Cells 2+ Target Cells 1+ FEW Ovalocytes 1+ Schistocytes RARE PUBS MCHC (33.0 - 37.0 G/DL) 31.8 L 32.3 L 04/04 04/03 0420 1825 Chemistry Sodium (137 - 145 mmol/L) 143 Potassium (3.5 - 5.1 mmol/L) 4.2 Chloride (98 - 107 mmol/L) 101 Carbon Dioxide (22 - 30 mmol/L) 18 L Anion Gap (5 - 16) 24 H BUN (9 - 20 mg/dL) 81 H Creatinine (0.7 - 1.2 mg/dL) 5.3 *H Estimated GFR (>60 ml/min) 11 L Glucose (65 - 99 mg/dL) 94 Calcium (8.4 - 10.2 mg/dL) 9.0 Phosphorus (2.5 - 4.5 mg/dL) 4.7 H Magnesium (1.6 - 2.3 mg/dL) 1.7 Total Bilirubin (0.2 - 1.3 mg/dL) 2.1 H Direct Bilirubin (< 0.4 mg/dL) 1.8 H GGT (15 - 73 U/L) 63 AST (17 - 59 U/L) 34 ALT (21 - 72 U/L) 31 Lactate Dehydrogenase (313 - 618 U/L) 477 Albumin (3.5 - 5.0 g/dL) 3.9 Hematology CBC w Diff NO MAN DIFF REQ MAN DIFF ORDERED WBC (4.8 - 10.8 /CUMM) 16.4 H 3.5 L RBC (4.70 - 6.10 /CUMM) 2.80 L 3.38 L Hgb (14.0 - 18.0 G/DL) 6.8 *L 8.4 L Hct (42 - 52 %) 21.9 L 26.5 L MCV (80.0 - 94.0 FL) 78.2 L 78.3 L MCH (27.0 - 31.0 PG) 24.3 L 24.8 L RDW (11.5 - 14.5 %) 22.4 H 22.3 H Plt Count (130 - 400 /CUMM) 135 154 MPV (7.4 - 10.4 FL) 13.2 H 12.6 H Gran % (42.2 - 75.2 %) 92.9 H 80.8 H Lymphocytes % (20.5 - 51.1 %) 2.0 L 14.0 L Monocytes % (1.7 - 9.3 %) 5.1 4.9 Eosinophils % (0 - 5 %) 0 0.3 Basophils % (0.0 - 2.0 %) 0 0 Absolute Granulocytes (1.4 - 6.5 /CUMM) 15.2 H 2.8 Segmented Neutrophils (42.2 - 75.2 %) 79 H Band Neutrophils (0.0 - 5.0 %) 12 H Absolute Lymphocytes (1.2 - 3.4 /CUMM) 0.3 L 0.5 L Lymphocytes (20.5 - 51.1 %) 7 L Monocytes (1.7 - 9.3 %) 2 Absolute Monocytes (0.10 - 0.60 /CUMM) 0.8 H 0.2 Absolute Eosinophils (0.0 - 0.7 /CUMM) 0 0 Absolute Basophils (0.0 - 0.2 /CUMM) 0 0 Platelet Estimate (ADEQUATE) ADEQUATE Polychromasia 2+ Hypochromic-Microcytic 2+ Poikilocytosis 2+ Target Cells 1+ Ovalocytes 1+ Schistocytes 1+ PUBS MCHC (33.0 - 37.0 G/DL) 31.0 L 31.6 L 04/03 0430 Chemistry Sodium (137 - 145 mmol/L) 142 Potassium (3.5 - 5.1 mmol/L) 4.2 Chloride (98 - 107 mmol/L) 101 Carbon Dioxide (22 - 30 mmol/L) 19 L Anion Gap (5 - 16) 22 H BUN (9 - 20 mg/dL) 70 H Creatinine (0.7 - 1.2 mg/dL) 4.5 H Estimated GFR (>60 ml/min) 13 L Glucose (65 - 99 mg/dL) 90 Calcium (8.4 - 10.2 mg/dL) 9.1 Phosphorus (2.5 - 4.5 mg/dL) 4.3 Magnesium (1.6 - 2.3 mg/dL) 1.7 Total Bilirubin (0.2 - 1.3 mg/dL) 2.0 H AST (17 - 59 U/L) 25 ALT (21 - 72 U/L) 25 Albumin (3.5 - 5.0 g/dL) 4.0 Hematology CBC w Diff NO MAN DIFF REQ WBC (4.8 - 10.8 /CUMM) 14.7 H RBC (4.70 - 6.10 /CUMM) 3.08 L Hgb (14.0 - 18.0 G/DL) 7.7 L Hct (42 - 52 %) 24.1 L MCV (80.0 - 94.0 FL) 78.4 L MCH (27.0 - 31.0 PG) 25.1 L RDW (11.5 - 14.5 %) 21.9 H Plt Count (130 - 400 /CUMM) 149 MPV (7.4 - 10.4 FL) 12.3 H Gran % (42.2 - 75.2 %) 87.4 H Lymphocytes % (20.5 - 51.1 %) 4.8 L Monocytes % (1.7 - 9.3 %) 7.6 Eosinophils % (0 - 5 %) 0.2 Basophils % (0.0 - 2.0 %) 0 Absolute Granulocytes (1.4 - 6.5 /CUMM) 12.8 H Absolute Lymphocytes (1.2 - 3.4 /CUMM) 0.7 L Absolute Monocytes (0.10 - 0.60 /CUMM) 1.1 H Absolute Eosinophils (0.0 - 0.7 /CUMM) 0 Absolute Basophils (0.0 - 0.2 /CUMM) 0 PUBS MCHC (33.0 - 37.0 G/DL) 32.0 L
[2017-04-05 16:00] VITALS: BP 110/60
--- NOTE | 2017-04-05 18:22 | NUCLEAR MEDICINE REPORT ---
EXAMINATION: BILIARY TRACT IMAGING STUDY CLINICAL INFORMATION: Ascites, pleural peritoneal fistula. Evaluate for biliary obstruction or infection. Elevated LFTs, history of polycystic liver and kidney disease.. COMPARISON: No previous biliary scan is available for comparison. CT of the abdomen dated 03/21/2017 is available for comparison.. TECHNIQUE: Serial gamma scintillation camera images were obtained over the abdomen for a total observation period 4 hours following the intravenous administration of 5.5 mCi Tc-99m Choletec. Initial images were obtained several minutes following injection of the radiopharmaceutical, the patient was then imaged with sequential 1 minute images for 90 minutes. Additional delayed images in the right lateral and FROY projections were obtained at 4 hours post injection. FINDINGS: Continue with the initial image, there is very heterogeneous distribution of activity in the liver consistent with the appearance of the liver on the MRI study dated 03/21/2017. The most intense activity is in a crescent shaped focus in the lower mid abdomen that correlates very well with a portion of liver at this site which is located at the anterior inferior aspect of one of many intrahepatic cysts. Additional activity superior to this in the distorted liver is noted, in the distribution of this activity does not change at all of the initial 90 minutes of imaging. An approximately 1 hour postinjection there is some activity in a changing pattern in the left lower quadrant of the abdomen which gradually moves to the right in the mid lower abdomen and likely represents some small amount of biliary activity in loops of small bowel at this site. The delayed images obtained at 4 hours show additional tubular activity in this region as well as more intense activity in the right lower quadrant of the abdomen that is also likely in loops of bowel, and appears to correspond to bowel loops in this region on the recent CT study. Less likely this may represent accumulation in the gallbladder, but the gallbladder is not well visualized on the MRI study. IMPRESSION: A markedly distorted liver architecture due to the patient's known extensive polycystic liver disease is noted with uptake predominantly in several regions of liver parenchyma which are well matched to the distorted appearance on the recent CT study. Additional activity eventually visualized in the left lower quadrant and more intensely in the right lower quadrant of the abdomen likely represents some biliary excretion into bowel. Definite gallbladder activity is not visualized, but the clinical significance of this is uncertain in this patient whose gallbladder cannot be well identified with anatomic imaging.
[2017-04-05 23:30] VITALS: BP 98/60
[2017-04-06 04:00] VITALS: BP 110/68
[2017-04-06 06:04] LABS: ABSOLUTE BASOPHIL COUNT 0 /CUMM (0.0-0.2); ABSOLUTE EOSINOPHIL COUNT 0 /CUMM (0.0-0.7); BASOPHIL % 0 % (0.0-2.0); EOSINOPHIL % 0.2 % (0-5); GRANULOCYTE % 83.5 % (42.2-75.2); MEAN CORPUSCULAR HGB 24.6 PG (27.0-31.0); MEAN CORPUSCULAR HGB CONC 31.9 G/DL (33.0-37.0); MEAN CORPUSCULAR VOLUME 77.1 FL (80.0-94.0); MEAN PLATELET VOLUME 12.7 FL (7.4-10.4); RBC DISTRIBUTION WIDTH 21.2 % (11.5-14.5); RED BLOOD CELL CT 3.63 /CUMM (4.70-6.10); WHITE BLOOD CELL COUNT 11.9 /CUMM (4.8-10.8)
[2017-04-06 06:27] LABS: PLATELET COUNT 136 /CUMM (130-400)
--- NOTE | 2017-04-06 07:02 | PN- Resident CRCU ---
See Addendum Subjective HPI/CRCU Issues: Catheter-associated Peritonitis SHELBY on CKD on HD Nonsustained SVT - resolved Hyperkalemia - resolved Acute hypoxic respiratory failure - resolved 24 Hour Events: No acute events overnight. Had a HIDA scan yesterday which did not reveal anything significant. Nephrology suggests a therapeutic paracentesis to relieve pressure and for interval improvement in nausea. LFTs continue to uptrend patient was seen and examined this morning. Does not offer any complaints. Continues to experience nausea with some improvement with his IV meds. PO intake remains poor. Objective Vital Signs & I&O Last 8 Hrs of Vitals and I&O: . Exam General Appearance: no apparent distress, alert, awake, comfortable Head: atraumatic, normal appearance Respiratory: normal breath sounds, chest non-tender, lungs clear Cardiovascular: regular rate/rhythm, systolic murmur Gastrointestinal: soft, non-tender, distention, palpable cysts Extremities: no edema Cranial Nerves: normal hearing, normal speech Skin: intact Skin Temp/Moisture Exam: Warm/Dry Sepsis Skin Exam (color): Normal for Ethnicity Current Medications: Current Medications Sig/Lola Start time Last Medication Dose Route Stop Time Status Admin Acetaminophen 1,000 MG ONCE ONE 04/06 1115 DC 04/06 N/A 1 UNIT IV 04/06 1129 1109 Acetaminophen 650 MG Q4P PRN 04/01 1815 AC 04/02 PO 1415 Albumin Human 25 GM Q8 03/24 2200 AC 04/06 IV 0551 Benzocaine/Menthol 1 MYLES Q2P PRN 04/03 1100 AC PO Ceftazidime 1,000 MG Q24H 04/04 0930 DC 04/05 IV 0857 Collagenase 1 BENEDICTO BID 04/02 1100 AC 04/06 TOP 0800 Desvenlafaxine 50 MG MoWeFr@1300 03/30 1300 AC 04/04 Succinate PO 1232 Epoetin Bryan 3,000 UNIT 03/30 1000 AC 04/04 IV 1112 Glycerin 2 SPRAY Q2P PRN 04/01 2045 AC PO Heparin Sodium 5,000 UNIT Q8 03/28 1444 AC 04/06 (Porcine) SC 0606 Morphine Sulfate 2 MG Q4P PRN 04/05 1730 AC 04/05 IV 1740 Multivitamins 1 TAB 1700 03/25 1700 AC 04/05 PO 1802 Omeprazole 40 MG DAILY AC 03/25 1648 AC 04/06 PO 0553 Polyethylene Glycol 17 GM DAILY PRN 04/03 1100 AC 04/04 PO 1426 Potassium Chloride 60 MEQ ONCE ONE 04/05 1830 CAN PO 04/05 1831 Potassium Chloride 10 MEQ Q1H 04/05 1830 DC 04/05 IV 04/05 1931 2215 Potassium Chloride 40 MEQ ONCE ONE 04/05 1315 DC 04/05 PO 04/05 1316 1802 Promethazine HCl 25 MG .STK-MED ONE 04/06 0010 DC IM 04/06 0011 Promethazine HCl 25 MG .STK-MED ONE 04/05 1805 DC IM 04/05 1806 Promethazine HCl 12.5 MG Q4P PRN 03/31 1745 AC 04/06 IV 04/07 1744 0018 Sevelamer Carbonate 1,600 MG WITH MEALS 03/24 1700 AC 04/04 PO 1853 Verapamil HCl 180 MG DAILY 03/25 0745 AC 03/29 PO 0934 Impression/Plan Impression/Problem List Impression: Mr. Tijerina is a 66 yo m with a PMH of PKD, Polycystic liver disease, portal HTN , HTN, HLD, umbilical hernia repair, colon ademona, GERD who presented to the ED with NVD with progressively worsened abdominal distention from ascitic fluid. Assessment and Plan: Hypotension: * His blood pressure has been running on the low side. * He received Levophed for a few hours peripherally on 04/01 for a couple of hours. . * Currently refuses for a central line placement for administeration of pressors. * Will give bolus if necessary to maintain his blood pressure. Nonsustained SVT - resolved Patient experienced 2 episodes of SVT with HR up to 180s. He was asymptomatic during both events. During the first event he was administered IV Metoprolol 5 mg. The second event spontaneously resolved and did not require medical management * Cardiology recommendations appreciated * Will administer Adenosine for any acute events * Patient to continue on tele monitoring for now. Acute Hypoxic Respiratory Failure s/p Pleurx Cath removal: Patient has a patent connection between abdominal cavity and pleural space 2/2 migrated indwelling catheter, leading to transfer of ascitic fluid to the pleural space. A pig tail was placed. As per Dr. Carson options are to watch and wait to see if spontaneously resolves vs surgical intervention. PA/Lateral CXR on 03/25 for pleural effusion demonstrated no significant pleural effusion or evidence of pneumothorax. ECHO demonstrated Aortic sclerosis is present with no valvular stenosis or insufficiency, a very small pericardial effusion, EF 55-60 % * Continue pigtail catheter drainage connected to water seal. * Surgery recommended to leave the catheter in place for now. If the connection does not seal on its own, the patient may require surgery. * His output through the Pleurx catheter has been very low which is suggestive that perhaps the connection is closing on its own. * TRC/nebs, oxygen supplementation PRN. Remains on room air. * CXR 03/29 showed no pleural effusion or acute abnormality. Catheter-associated Peritonitis: Patient had an indwelling pleural catheter placed in July 2016 for pleural effusion that migrated into the abdominal cavity. Considering that the patient's catheter was never removed it can be a possible source of infection. He had another catheter placed in the R lung that was eventually removed. CT abdomen/ pelvis on admission demonstrated the resolution of his R-side pleural effusion. He gets 1L of ascitic fluid drained from the migrated Pleurx catheter on . Prior to coming to the hospital it was last drained on Tuesday by his visiting nurse. He had a diagnostic and therapeutic paracentesis performed. His ascitic fluid white count was 8222. Repeat paracentesis demonstrated a transudative ascitic fluid with SAAG > 1. His ascitic fluid culture grew GNR and he was started on Ceftazidime. Vancomycin was discontinued. * ID recommendations appreciated. * His white count has been trending down. * Blood cultures - pending * RUQ U/S demonstrated extensive cystic structures and free fluid present throughout the abdomen. * Had a diagnostic and therapeutic paracentesis 03/31. * Ascitic fluid studies not suggestive of SBP. * Will send for C.diff if he has diarrhea. * Ceftazidime has been discontinued * Continue IV albumin 25gm q8. * HIDA scan did not reveal any significant abnormalities. There has been an uptrend in his LFTs though that could also be due to the DesVenlafaxine that was started. * Will obtain another diagnostic/therapeutic paracentesis tomorrow. He had dialysis today and paracentesis would lead to a further drop in blood pressure. SHELBY on CKD most likely 2/2 dehydration in the setting of his CKD from PKD: Patient is reported to have a baseline Cr of 2-3. His Cr initially eliceo on admission but has trended down. Patient had an Evin cath placed * Continue to monitor renal function * Continue IV Albumin 25 gm q8 * Nephrology recommendations appreciated. * He likely has ESRD secondary to ADPKD * Dialysis M/W/F * Continue Epogen with dialysis. Depression: * Patient requested for a psych consult as he feels depressed. * Psych has suggested starting him on DesVenlafaxine 50mg daily. * Renal and GI have approved the use of the medication from their standpoint. However, recommend monitoring of LFTs while on the drug. * Patient is agreeable to start the medication. History of PKD, Polycystic liver disease: Patient reported he had an appt at [place] [facility] in which he was told he wouldn't receive a transplant until the resolution of his ascitic fluid. CT abd/pel demonstrated numerous cysts effectively replacing the normal hepatic and bilateral renal parenchyma Diet: Regular Diet with 2g K restriction. DVT Prophylaxis: ALPS Code Status: Full Problem List: 1. Polycystic liver disease 2. Polycystic kidney disease Pain Ratin Tomorrow's Labs & Rationales: CBC, ICU bundle, LFTs. Plan DVT/Prophylaxis: mechanical DVT/Prophylaxis: mechanical
[2017-04-06 08:00] VITALS: BP 110/70
--- NOTE | 2017-04-06 10:23 | PN- Infect Dx ---
Subjective Subjective: Afebrile. He continues to complain of nausea and mild abdominal discomfort. Objective Last 24 Hrs of Vital Signs/I&O Vital Signs Date Time Temp Pulse Resp B/P B/P Pulse O2 O2 Flow FiO2 Mean Ox Delivery Rate 04/06 0800 98.8 90 20 110/70 96 Room Air 04/06 0800 96 Room Air 04/06 0400 97.6 92 27 110/68 96 Nasal 2.0L Cannula 04/06 0400 96 Room Air 04/05 2330 98.2 90 18 98/60 97 Room Air 04/05 1600 98.0 90 18 110/60 96 Room Air Intake & Output 04/06 1600 04/06 0800 04/06 0000 Intake Total 270 300 Output Total 10 Balance 260 300 Intake, IV 250 300 Intake, Oral 20 Output, Chest 10 Tube Drainage Patient 143 lb Weight Weight Chair scale Measurement Method Physical Exam Other Physical Findings: He is awake and alert, appearing chronically ill, but in no acute distress, currently on dialysis Neck dialysis catheter in the right IJ with no inflammation at the site Lungs are clear; pigtail catheter on the right with 90 mL output yesterday Heart regular rhythm with no murmur Abdomen increased distention, mildly tender to palpation, with positive bowel sounds Extremities no cyanosis, clubbing or edema Results Last 24 Hours of Lab Results: Laboratory Tests 04/06 0415 Chemistry Sodium (137 - 145 mmol/L) 144 Potassium (3.5 - 5.1 mmol/L) 4.2 Chloride (98 - 107 mmol/L) 103 Carbon Dioxide (22 - 30 mmol/L) 20 L Anion Gap (5 - 16) 21 H BUN (9 - 20 mg/dL) 56 H Creatinine (0.7 - 1.2 mg/dL) 3.9 H Estimated GFR (>60 ml/min) 15 L Glucose (65 - 99 mg/dL) 76 Calcium (8.4 - 10.2 mg/dL) 8.8 Phosphorus (2.5 - 4.5 mg/dL) 3.2 Magnesium (1.6 - 2.3 mg/dL) 2.0 Total Bilirubin (0.2 - 1.3 mg/dL) 2.9 H Direct Bilirubin (< 0.4 mg/dL) 2.3 H AST (17 - 59 U/L) 19 ALT (21 - 72 U/L) 28 Alkaline Phosphatase (< 127 U/L) 156 H Total Protein (6.3 - 8.2 g/dL) 6.2 L Albumin (3.5 - 5.0 g/dL) 3.8 Hematology CBC w Diff NO MAN DIFF REQ WBC (4.8 - 10.8 /CUMM) 11.9 H RBC (4.70 - 6.10 /CUMM) 3.63 L Hgb (14.0 - 18.0 G/DL) 8.9 L Hct (42 - 52 %) 28.0 L MCV (80.0 - 94.0 FL) 77.1 L MCH (27.0 - 31.0 PG) 24.6 L RDW (11.5 - 14.5 %) 21.2 H Plt Count (130 - 400 /CUMM) 136 MPV (7.4 - 10.4 FL) 12.7 H Gran % (42.2 - 75.2 %) 83.5 H Lymphocytes % (20.5 - 51.1 %) 8.2 L Monocytes % (1.7 - 9.3 %) 8.1 Eosinophils % (0 - 5 %) 0.2 Basophils % (0.0 - 2.0 %) 0 Absolute Granulocytes (1.4 - 6.5 /CUMM) 10.0 H Absolute Lymphocytes (1.2 - 3.4 /CUMM) 1.0 L Absolute Monocytes (0.10 - 0.60 /CUMM) 1.0 H Absolute Eosinophils (0.0 - 0.7 /CUMM) 0 Absolute Basophils (0.0 - 0.2 /CUMM) 0 PUBS MCHC (33.0 - 37.0 G/DL) 31.9 L Last 24 Hours of Clarke Results: No new cultures Recent Imaging Studies: HIDA scan April 05, a limited study secondary to his distorted liver architecture, reveals probable biliary excretion into the bowel, though no definite gallbladder activity is visualized Assessment/Plan Impression: Condition remains poor, with intermittent hypotension and persistent nausea, anorexia and poor po intake, though his temperatures remain normal and his white blood cell count continues to decrease on Ceftazidime now 15 days status post removal of the migrated Pleurx catheter, which resulted in a peritonitis secondary to Escherichia coli and Pseudomonas, with his recent paracentesis revealing a marked decrease in his white blood cell count. Though the HIDA scan was limited, there was some biliary excretion; therefore cholecystitis is felt to be unlikely, though his bilirubin and alkaline phosphatase continue to increase. He appears to have increased abdominal distention and, as discussed with Renal, a therapeutic paracentesis could be considered. Suggestion: 1. Consider MRCP 2. Would pursue a therapeutic paracentesis and send fluid for cell count and culture 3. Further management with regard to his nutrition per Medicine 4. Further management of his pigtail catheter and pleural-peritoneal fistula per Pulmonary and Thoracic surgery 5. Discontinue Ceftazidime and follow off antibiotics pending above
--- NOTE | 2017-04-06 13:32 | PN- Nephrology ---
Assessment/Plan Assessment: 1. 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 Peritonitis secondary to Escherichia coli and Pseudomonas in setting of a trans-migrated pleural catheter - appears to be resolving with persistent leukocytosis which continues to slowly improve. If leukocytosis persists or fever recurs we'll need to look for another source i.e. an infected cyst(s). 3. Severe recurrent ascites presumably secondary to portal hypertension 4. Recurrent right pleural effusion - ?hepatic hydrothorax 5. Generalized cachexia Suggestion: 1. Hemodialysis today relatively uneventful with improved blood pressure compared to recent values 2. Next hemodialysis for Saturday 04/08 3. Would strongly consider another paracentesis, perhaps tomorrow, with ~2 L fluid removal, covering with 25% albumin 50 g pre-and 50 g post aspiration. Fluid should be sent for cell count with differential and culture 4. Antibiotics to be discontinued - per ID 5. Family meeting scheduled for later today 6. Once his acute issues have resolved, will address long-term planning Subjective Subjective: Seen with hemodialysis. Patient continues to feel poorly in general. No shortness of breath but has persistent nausea and no appetite. Abdomen remains distended and uncomfortable. He remains afebrile with a slowly falling WBC. Still oliguric. Calcium, phosphorus, magnesium and electrolytes okay. Objective Vital Signs and I&Os Vital Signs Date Time Temp Pulse Resp B/P B/P Pulse O2 O2 Flow FiO2 Mean Ox Delivery Rate 04/06 1200 98 Room Air 04/06 0800 98.8 90 20 110/70 96 Room Air 04/06 0800 96 Room Air 04/06 0400 97.6 92 27 110/68 96 Nasal 2.0L Cannula 04/06 0400 96 Room Air 04/05 2330 98.2 90 18 98/60 97 Room Air 04/05 1600 98.0 90 18 110/60 96 Room Air Intake & Output 04/06 1600 04/06 0400 04/05 1600 04/05 0400 04/04 1600 04/04 0400 Intake Total 270 300 154 918 6339 1200 Output Total 10 90 0 0 10 Balance 260 300 124 906 9640 1190 Intake, Blood 350 Product Intake, 800 Dialysate Intake, IV 250 300 250 311 690 0469 Intake, Oral 20 0 270 270 100 Number 0 3 Bowel Movements Output, Chest 10 90 0 10 Tube Drainage Output, Urine 0 Patient 143 lb 144 lb 141 lb Weight Weight Chair scale Chair scale Measurement Method Physical Exam: General: Cachectic appearing white male in NAD Skin: No rash or jaundice HEENT: Conjunctivae pale, sclerae anicteric, mucous membranes dry Neck: Without masses or thyromegaly, no supraclavicular or cervical adenopathy Chest: Clear anterolaterally Heart: Regular rate and rhythm without S3 or rub Abdomen: Soft, distended with mild diffuse tenderness and with cystic hepatomegaly and ascites Extremities: Without cyanosis or edema Neuro: No focal findings, no asterixis or myoclonus Results Pertinent Lab Results: Laboratory Tests 04/06 04/05 0415 0355 Chemistry Sodium (137 - 145 mmol/L) 144 144 Potassium (3.5 - 5.1 mmol/L) 4.2 3.3 L Chloride (98 - 107 mmol/L) 103 100 Carbon Dioxide (22 - 30 mmol/L) 20 L 23 Anion Gap (5 - 16) 21 H 21 H BUN (9 - 20 mg/dL) 56 H 45 H Creatinine (0.7 - 1.2 mg/dL) 3.9 H 3.2 H Estimated GFR (>60 ml/min) 15 L 19 L Glucose (65 - 99 mg/dL) 76 105 H Calcium (8.4 - 10.2 mg/dL) 8.8 9.0 Phosphorus (2.5 - 4.5 mg/dL) 3.2 2.8 Magnesium (1.6 - 2.3 mg/dL) 2.0 2.1 Total Bilirubin (0.2 - 1.3 mg/dL) 2.9 H 2.6 H Direct Bilirubin (< 0.4 mg/dL) 2.3 H 2.0 H AST (17 - 59 U/L) 19 34 ALT (21 - 72 U/L) 28 32 Alkaline Phosphatase (< 127 U/L) 156 H 131 H Total Protein (6.3 - 8.2 g/dL) 6.2 L 6.4 Albumin (3.5 - 5.0 g/dL) 3.8 4.1 Hematology CBC w Diff NO MAN DIFF REQ MAN DIFF ORDERED WBC (4.8 - 10.8 /CUMM) 11.9 H 12.5 H RBC (4.70 - 6.10 /CUMM) 3.63 L 3.55 L Hgb (14.0 - 18.0 G/DL) 8.9 L 8.8 L Hct (42 - 52 %) 28.0 L 27.7 L MCV (80.0 - 94.0 FL) 77.1 L 78.0 L MCH (27.0 - 31.0 PG) 24.6 L 24.8 L RDW (11.5 - 14.5 %) 21.2 H 20.9 H Plt Count (130 - 400 /CUMM) 136 134 MPV (7.4 - 10.4 FL) 12.7 H 12.6 H Gran % (42.2 - 75.2 %) 83.5 H 83.7 H Lymphocytes % (20.5 - 51.1 %) 8.2 L 6.8 L Monocytes % (1.7 - 9.3 %) 8.1 9.4 H Eosinophils % (0 - 5 %) 0.2 0.1 Basophils % (0.0 - 2.0 %) 0 0 Absolute Granulocytes (1.4 - 6.5 /CUMM) 10.0 H 10.5 H Segmented Neutrophils (42.2 - 75.2 %) 90 H Band Neutrophils (0.0 - 5.0 %) 1 Absolute Lymphocytes (1.2 - 3.4 /CUMM) 1.0 L 0.8 L Lymphocytes (20.5 - 51.1 %) 4 L Monocytes (1.7 - 9.3 %) 5 Absolute Monocytes (0.10 - 0.60 /CUMM) 1.0 H 1.2 H Absolute Eosinophils (0.0 - 0.7 /CUMM) 0 0 Absolute Basophils (0.0 - 0.2 /CUMM) 0 0 Platelet Estimate (ADEQUATE) DECREASED Hypochromic-Microcytic 2+ Anisocytosis 1+ Target Cells 1+ Ovalocytes 1+ PUBS MCHC (33.0 - 37.0 G/DL) 31.9 L 31.8 L 04/04 04/04 1510 0420 Chemistry Sodium (137 - 145 mmol/L) 143 Potassium (3.5 - 5.1 mmol/L) 4.2 Chloride (98 - 107 mmol/L) 101 Carbon Dioxide (22 - 30 mmol/L) 18 L Anion Gap (5 - 16) 24 H BUN (9 - 20 mg/dL) 81 H Creatinine (0.7 - 1.2 mg/dL) 5.3 *H Estimated GFR (>60 ml/min) 11 L Glucose (65 - 99 mg/dL) 94 Calcium (8.4 - 10.2 mg/dL) 9.0 Phosphorus (2.5 - 4.5 mg/dL) 4.7 H Magnesium (1.6 - 2.3 mg/dL) 1.7 Total Bilirubin (0.2 - 1.3 mg/dL) 2.1 H Direct Bilirubin (< 0.4 mg/dL) 1.8 H GGT (15 - 73 U/L) 63 AST (17 - 59 U/L) 34 ALT (21 - 72 U/L) 31 Lactate Dehydrogenase (313 - 618 U/L) 477 Albumin (3.5 - 5.0 g/dL) 3.9 Hematology CBC w Diff MAN DIFF ORDERED NO MAN DIFF REQ WBC (4.8 - 10.8 /CUMM) 12.9 H 16.4 H RBC (4.70 - 6.10 /CUMM) 3.21 L 2.80 L Hgb (14.0 - 18.0 G/DL) 8.0 L 6.8 *L Hct (42 - 52 %) 24.8 L 21.9 L MCV (80.0 - 94.0 FL) 77.3 L 78.2 L MCH (27.0 - 31.0 PG) 25.0 L 24.3 L RDW (11.5 - 14.5 %) 20.3 H 22.4 H Plt Count (130 - 400 /CUMM) 127 L 135 MPV (7.4 - 10.4 FL) 12.2 H 13.2 H Gran % (42.2 - 75.2 %) 92.9 H Lymphocytes % (20.5 - 51.1 %) 2.0 L Monocytes % (1.7 - 9.3 %) 5.1 Eosinophils % (0 - 5 %) 0 Basophils % (0.0 - 2.0 %) 0 Absolute Granulocytes (1.4 - 6.5 /CUMM) 15.2 H Segmented Neutrophils (42.2 - 75.2 %) 94 H Absolute Lymphocytes (1.2 - 3.4 /CUMM) 0.3 L Lymphocytes (20.5 - 51.1 %) 3 L Monocytes (1.7 - 9.3 %) 3 Absolute Monocytes (0.10 - 0.60 /CUMM) 0.8 H Absolute Eosinophils (0.0 - 0.7 /CUMM) 0 Absolute Basophils (0.0 - 0.2 /CUMM) 0 Platelet Estimate (ADEQUATE) DECREASED Polychromasia 1+ Hypochromic-Microcytic 2+ Poikilocytosis 1+ Basophilic Stippling RARE Anisocytosis 2+ Microcytic Cells 2+ Target Cells FEW Schistocytes RARE PUBS MCHC (33.0 - 37.0 G/DL) 32.3 L 31.0 L 04/03 1824 Hematology CBC w Diff MAN DIFF ORDERED WBC (4.8 - 10.8 /CUMM) 3.5 L RBC (4.70 - 6.10 /CUMM) 3.38 L Hgb (14.0 - 18.0 G/DL) 8.4 L Hct (42 - 52 %) 26.5 L MCV (80.0 - 94.0 FL) 78.3 L MCH (27.0 - 31.0 PG) 24.8 L RDW (11.5 - 14.5 %) 22.3 H Plt Count (130 - 400 /CUMM) 154 MPV (7.4 - 10.4 FL) 12.6 H Gran % (42.2 - 75.2 %) 80.8 H Lymphocytes % (20.5 - 51.1 %) 14.0 L Monocytes % (1.7 - 9.3 %) 4.9 Eosinophils % (0 - 5 %) 0.3 Basophils % (0.0 - 2.0 %) 0 Absolute Granulocytes (1.4 - 6.5 /CUMM) 2.8 Segmented Neutrophils (42.2 - 75.2 %) 79 H Band Neutrophils (0.0 - 5.0 %) 12 H Absolute Lymphocytes (1.2 - 3.4 /CUMM) 0.5 L Lymphocytes (20.5 - 51.1 %) 7 L Monocytes (1.7 - 9.3 %) 2 Absolute Monocytes (0.10 - 0.60 /CUMM) 0.2 Absolute Eosinophils (0.0 - 0.7 /CUMM) 0 Absolute Basophils (0.0 - 0.2 /CUMM) 0 Platelet Estimate (ADEQUATE) ADEQUATE Polychromasia 2+ Hypochromic-Microcytic 2+ Poikilocytosis 2+ Target Cells 1+ Ovalocytes 1+ Schistocytes 1+ PUBS MCHC (33.0 - 37.0 G/DL) 31.6 L
--- NOTE | 2017-04-06 13:33 | PN- Cardiology ---
Subjective Subjective: Stable post dialysis. Brief episode of wide complex tachycardia noted. Brief nonsustained SVT also noted. Objective Vital Signs and I&Os Vital Signs Date Time Temp Pulse Resp B/P B/P Pulse O2 O2 Flow FiO2 Mean Ox Delivery Rate 04/06 1200 98 Room Air 04/06 0800 98.8 90 20 110/70 96 Room Air 04/06 0800 96 Room Air 04/06 0400 97.6 92 27 110/68 96 Nasal 2.0L Cannula 04/06 0400 96 Room Air 04/05 2330 98.2 90 18 98/60 97 Room Air 04/05 1600 98.0 90 18 110/60 96 Room Air Intake & Output 04/06 1600 04/06 0800 04/06 0000 04/05 1600 04/05 0800 04/05 0000 Intake Total 270 300 0 250 370 Output Total 10 90 0 Balance 260 300 -90 250 370 Intake, IV 250 300 250 100 Intake, Oral 20 0 270 Number 0 Bowel Movements Output, Chest 10 90 Tube Drainage Output, Urine 0 Patient 143 lb 144 lb Weight Weight Chair scale Measurement Method Current Medications: Current Medications Sig/Lola Start time Last Medication Dose Route Stop Time Status Admin Acetaminophen 1,000 MG ONCE ONE 04/06 1115 DC 04/06 N/A 1 UNIT IV 04/06 1129 1109 Acetaminophen 650 MG Q4P PRN 04/01 1815 AC 04/02 PO 1415 Albumin Human 25 GM Q8 03/24 2200 AC 04/06 IV 0551 Benzocaine/Menthol 1 MYLES Q2P PRN 04/03 1100 AC PO Ceftazidime 1,000 MG Q24H 04/04 0930 DC 04/05 IV 0857 Collagenase 1 BENEDICTO BID 04/02 1100 AC 04/06 TOP 0800 Desvenlafaxine 50 MG MoWeFr@1300 03/30 1300 AC 04/06 Succinate PO 1310 Epoetin Bryan 3,000 UNIT 03/30 1000 AC 04/04 IV 1112 Glycerin 2 SPRAY Q2P PRN 04/01 2045 AC PO Heparin Sodium 5,000 UNIT Q8 03/28 1444 AC 04/06 (Porcine) SC 0606 Morphine Sulfate 2 MG Q4P PRN 04/05 1730 AC 04/05 IV 1740 Multivitamins 1 TAB 1700 03/25 1700 AC 04/05 PO 1802 Omeprazole 40 MG DAILY AC 03/25 1648 AC 04/06 PO 0553 Polyethylene Glycol 17 GM DAILY PRN 04/03 1100 AC 04/04 PO 1426 Potassium Chloride 60 MEQ ONCE ONE 04/05 1830 CAN PO 04/05 183 Potassium Chloride 10 MEQ Q1H 04/05 1830 DC 04/05 IV 04/05 1931 2215 Promethazine HCl 25 MG .STK-MED ONE 04/06 0010 DC IM 04/06 001 Promethazine HCl 25 MG .STK-MED ONE 04/05 1805 DC IM 04/05 180 Promethazine HCl 12.5 MG Q4P PRN 03/31 1745 AC 04/06 IV 04/07 174 0018 Sevelamer Carbonate 1,600 MG WITH MEALS 03/24 1700 AC 04/06 PO 1310 Verapamil HCl 180 MG DAILY 03/25 0745 AC 03/29 PO 0934 Results Last 48 Hrs of Labs/Mics: Laboratory Tests 04/06/17 0415: Anion Gap 21 H, Estimated GFR 15 L, Glucose 76, Calcium 8.8, Phosphorus 3.2, Magnesium 2.0, Total Bilirubin 2.9 H, Direct Bilirubin 2.3 H, AST 19, ALT 28, Alkaline Phosphatase 156 H, Total Protein 6.2 L, Albumin 3.8, CBC w Diff NO MAN DIFF REQ, RBC 3.63 L, MCV 77.1 L, MCH 24.6 L, RDW 21.2 H, MPV 12.7 H, Gran % 83.5 H, Lymphocytes % 8.2 L, Monocytes % 8.1, Eosinophils % 0.2, Basophils % 0, Absolute Granulocytes 10.0 H, Absolute Lymphocytes 1.0 L, Absolute Monocytes 1.0 H, Absolute Eosinophils 0, Absolute Basophils 0, PUBS MCHC 31.9 L 04/05/17 0355: Anion Gap 21 H, Estimated GFR 19 L, Glucose 105 H, Calcium 9.0, Phosphorus 2.8, Magnesium 2.1, Total Bilirubin 2.6 H, Direct Bilirubin 2.0 H, AST 34, ALT 32, Alkaline Phosphatase 131 H, Total Protein 6.4, Albumin 4.1, CBC w Diff MAN DIFF ORDERED, RBC 3.55 L, MCV 78.0 L, MCH 24.8 L, RDW 20.9 H, MPV 12.6 H, Gran % 83.7 H, Lymphocytes % 6.8 L, Monocytes % 9.4 H, Eosinophils % 0.1, Basophils % 0, Absolute Granulocytes 10.5 H, Segmented Neutrophils 90 H, Band Neutrophils 1, Absolute Lymphocytes 0.8 L, Lymphocytes 4 L, Monocytes 5, Absolute Monocytes 1.2 H, Absolute Eosinophils 0, Absolute Basophils 0, Platelet Estimate DECREASED, Hypochromic-Microcytic 2+, Anisocytosis 1+, Target Cells 1+, Ovalocytes 1+, PUBS MCHC 31.8 L 04/04/17 1510: CBC w Diff MAN DIFF ORDERED, RBC 3.21 L, MCV 77.3 L, MCH 25.0 L, RDW 20.3 H, MPV 12.2 H, Segmented Neutrophils 94 H, Lymphocytes 3 L, Monocytes 3, Platelet Estimate DECREASED, Polychromasia 1+, Hypochromic-Microcytic 2+, Poikilocytosis 1+, Basophilic Stippling RARE, Anisocytosis 2+, Microcytic Cells 2+, Target Cells FEW, Schistocytes RARE, PUBS MCHC 32.3 L Assessment/Plan Assessment/Plan Assessment: 1. Nonsustained superventricular tachycardia-stable with no significant arrhythmias over the last 24 hours. Brief episodes of non sustained SVT noted. 2. Ascites with SBP vs Catheter-associated Peritonitis 3. Acute on chronic renal insufficiency with polycystic kidneys 4. Polycystic liver disease 5. Hyperkalemia 6. Microcytic anemia 7. Persistent hypotension Recommendations: -continue as per the ICU team. -Continue to monitor on telemetry - Followup labs pending Continue telemetry? Yes
[2017-04-06 16:00] VITALS: BP 100/60
[2017-04-06 23:00] VITALS: BP 98/78
[2017-04-07 05:04] LABS: ABSOLUTE BASOPHIL COUNT 0 /CUMM (0.0-0.2); ABSOLUTE EOSINOPHIL COUNT 0 /CUMM (0.0-0.7); ABSOLUTE LYMPH COUNT 0.7 /CUMM (1.2-3.4); ABSOLUTE MONOCYTE COUNT 1.2 /CUMM (0.10-0.60); BASOPHIL % 0 % (0.0-2.0); EOSINOPHIL % 0.2 % (0-5); GRANULOCYTE % 84.1 % (42.2-75.2); HEMATOCRIT 26.1 % (42-52); MEAN CORPUSCULAR HGB 24.6 PG (27.0-31.0); MEAN CORPUSCULAR VOLUME 76.9 FL (80.0-94.0); MEAN PLATELET VOLUME 12.9 FL (7.4-10.4); PLATELET COUNT 140 /CUMM (130-400); RBC DISTRIBUTION WIDTH 21.5 % (11.5-14.5); WHITE BLOOD CELL COUNT 11.9 /CUMM (4.8-10.8)
--- NOTE | 2017-04-07 07:07 | PN- Resident CRCU ---
Subjective HPI/CRCU Issues: Catheter-associated Peritonitis SHELBY on CKD on HD Nonsustained SVT - resolved Hyperkalemia - resolved Acute hypoxic respiratory failure - resolved 24 Hour Events: No acute events overnight. Patient scheduled for therapeutic paracentesis today. Objective Vital Signs & I&O Last 8 Hrs of Vitals and I&O: Intake & Output 04/07 1600 Intake Total 700 Output Total 2500 Balance -1800 Intake, IV 400 Intake, Oral 300 Output, Other 2500 Patient 142 lb Weight Weight Chair scale Measurement Method Exam General Appearance: no apparent distress, alert, awake, mild distress Head: atraumatic, normal appearance Respiratory: normal breath sounds, chest non-tender, lungs clear Cardiovascular: regular rate/rhythm Gastrointestinal: soft, non-tender Extremities: no edema Cranial Nerves: normal hearing, normal speech Skin: stage 3 ulcer on coccyx Skin Temp/Moisture Exam: Warm/Dry Sepsis Skin Exam (color): Normal for Ethnicity Current Medications: Current Medications Sig/Lola Start time Last Medication Dose Route Stop Time Status Admin Acetaminophen 650 MG Q4P PRN 04/01 1815 AC 04/02 PO 1415 Albumin Human 25 GM ONCE ONE 04/07 1345 DC 04/07 IV 04/07 1346 1401 Albumin Human 50 GM ONCE ONE 04/07 1130 DC 04/07 IV 04/07 1131 1209 Albumin Human 25 GM Q8 03/24 2200 AC 04/07 IV 1401 Benzocaine/Menthol 1 MYLES Q2P PRN 04/03 1100 AC PO Collagenase 1 BENEDICTO BID 04/02 1100 AC 04/07 TOP 0930 Desvenlafaxine 50 MG MoWeFr@1300 03/30 1300 AC 04/06 Succinate PO 1310 Epoetin Bryan 3,000 UNIT 03/30 1000 AC 04/06 IV 1357 Glycerin 2 SPRAY Q2P PRN 04/01 2045 AC PO Heparin Sodium 5,000 UNIT Q8 03/28 1444 AC 04/07 (Porcine) SC 1419 Morphine Sulfate 2 MG Q4P PRN 04/05 1730 AC 04/07 IV 0756 Multivitamins 1 TAB 1700 03/25 1700 AC 04/06 PO 1648 Omeprazole 40 MG DAILY AC 03/25 1648 AC 04/07 PO 0616 Polyethylene Glycol 17 GM DAILY PRN 04/03 1100 AC 04/06 PO 1850 Promethazine HCl 12.5 MG Q4P PRN 03/31 1745 AC 04/06 IV 04/07 1744 0018 Senna/Docusate Sodium 1 TAB BID PRN 04/06 1500 AC 04/06 PO 1850 Sevelamer Carbonate 1,600 MG WITH MEALS 03/24 1700 AC 04/07 PO 1100 Verapamil HCl 180 MG DAILY 03/25 0745 AC 03/29 PO 0934 Impression/Plan Impression/Problem List Impression: Mr. Tijerina is a 66 yo m with a PMH of PKD, Polycystic liver disease, portal HTN , HTN, HLD, umbilical hernia repair, colon ademona, GERD who presented to the ED with NVD with progressively worsened abdominal distention from ascitic fluid. Assessment and Plan: Hypotension: - currently resolved. * His blood pressure had been running on the low side past couple of days. * He received Levophed for a few hours peripherally on 04/01 for a couple of hours. . * Currently refuses for a central line placement for administeration of pressors. * Will give bolus if necessary to maintain his blood pressure. Nonsustained SVT - resolved Patient experienced 2 episodes of SVT with HR up to 180s. He was asymptomatic during both events. During the first event he was administered IV Metoprolol 5 mg. The second event spontaneously resolved and did not require medical management * Cardiology recommendations appreciated * Will administer Adenosine for any acute events * Patient to continue on tele monitoring for now. ?Catheter-associated Peritonitis: Patient had an indwelling pleural catheter placed in July 2016 for pleural effusion that migrated into the abdominal cavity. Considering that the patient's catheter was never removed it could have been a possible source of infection. He had another catheter placed in the R lung that was eventually removed. CT abdomen/pelvis on admission demonstrated the resolution of his R-side pleural effusion. He gets 1L of ascitic fluid drained from the migrated Pleurx catheter on MWF. Prior to coming to the hospital it was last drained by his visiting nurse. * ID recommendations appreciated. * His white count has been trending down. * Blood cultures - pending * RUQ U/S demonstrated extensive cystic structures and free fluid present throughout the abdomen. * Had a diagnostic and therapeutic paracentesis again today 04/07 * Ascitic fluid studies - pending * Will send for C.diff if he has diarrhea. * Ceftazidime has been discontinued * Continue IV albumin 25gm q8. * HIDA scan did not reveal any significant abnormalities. There has been an uptrend in his LFTs though that could also be due to the DesVenlafaxine that was started. * Will obtain MRCP to evaluate for uptrending LFTs SHELBY on CKD most likely 2/2 dehydration in the setting of his CKD from PKD: Patient is reported to have a baseline Cr of 2-3. His Cr initially elieco on admission but has trended down. Patient had an Evin cath placed * Continue to monitor renal function * Continue IV Albumin 25 gm q8 * Nephrology recommendations appreciated. * He likely has ESRD secondary to ADPKD * Dialysis M/W/F * Continue Epogen with dialysis. Depression: * Patient requested for a psych consult as he feels depressed. * Psych has suggested starting him on DesVenlafaxine 50mg daily. * Renal and GI have approved the use of the medication from their standpoint. However, recommend monitoring of LFTs while on the drug. * Patient is agreeable to start the medication. History of PKD, Polycystic liver disease: Patient reported he had an appt at [facility] in which he was told he wouldn't receive a transplant until the resolution of his ascitic fluid. CT abd/pel demonstrated numerous cysts effectively replacing the normal hepatic and bilateral renal parenchyma Diet: Regular Diet with 2g K restriction. DVT Prophylaxis: ALPS Code Status: Full Problem List: 1. Polycystic kidney disease 2. Polycystic liver disease Pain Ratin Tomorrow's Labs & Rationales: CBC, ICU bundle, LFTs Plan DVT/Prophylaxis: mechanical Regular Diet with 2g K restriction. DVT Prophylaxis: ALPS Code Status: Full Problem List: 1. Polycystic kidney disease 2. Polycystic liver disease Pain Ratin Tomorrow's Labs & Rationales: CBC, ICU bundle, LFTs Plan DVT/Prophylaxis: mechanical
--- NOTE | 2017-04-07 07:27 | PN- CRCU ---
Subjective HPI/Critical Care Issues: The patient remains awake and alert, but appears depressed. He is hemodynamically stable. He offers no new complaints. Objective Current Medications: Current Medications Sig/Lola Start time Last Medication Dose Route Stop Time Status Admin Acetaminophen 1,000 MG ONCE ONE 04/06 1115 DC 04/06 N/A 1 UNIT IV 04/06 1129 1109 Acetaminophen 650 MG Q4P PRN 04/01 1815 AC 04/02 PO 1415 Albumin Human 25 GM Q8 03/24 2200 AC 04/07 IV 0616 Benzocaine/Menthol 1 MYLES Q2P PRN 04/03 1100 AC PO Ceftazidime 1,000 MG Q24H 04/04 0930 DC 04/05 IV 0857 Collagenase 1 BENEDICTO BID 04/02 1100 AC 04/06 TOP 2234 Desvenlafaxine 50 MG MoWeFr@1300 03/30 1300 AC 04/06 Succinate PO 1310 Epoetin Bryan 3,000 UNIT 03/30 1000 AC 04/06 IV 1357 Glycerin 2 SPRAY Q2P PRN 04/01 2045 AC PO Heparin Sodium 5,000 UNIT Q8 03/28 1444 AC 04/07 (Porcine) SC 0616 Morphine Sulfate 2 MG Q4P PRN 04/05 1730 AC 04/07 IV 0235 Multivitamins 1 TAB 1700 03/25 1700 AC 04/06 PO 1648 Omeprazole 40 MG DAILY AC 03/25 1648 AC 04/07 PO 0616 Polyethylene Glycol 17 GM DAILY PRN 04/03 1100 AC 04/06 PO 1850 Promethazine HCl 12.5 MG Q4P PRN 03/31 1745 AC 04/06 IV 04/07 1744 0018 Senna/Docusate Sodium 1 TAB BID PRN 04/06 1500 AC 04/06 PO 1850 Sevelamer Carbonate 1,600 MG WITH MEALS 03/24 1700 AC 04/06 PO 1648 Verapamil HCl 180 MG DAILY 03/25 0745 AC 03/29 PO 0934 Vital Signs & I&O Last 24 Hrs of Vitals and I&O: Vital Signs Date Time Temp Pulse Resp B/P B/P Pulse O2 O2 Flow FiO2 Mean Ox Delivery Rate 04/07 0400 96 Room Air 04/07 0000 96 Room Air 04/06 2300 98.3 99 16 98/78 98 Room Air 04/06 2000 98 Room Air 04/06 1600 98.2 96 20 100/60 96 Room Air 04/06 1600 96 Room Air 04/06 1356 98 90/58 04/06 1200 98 Room Air 04/06 0800 98.8 90 20 110/70 96 Room Air 04/06 0800 96 Room Air Intake & Output 04/07 0800 04/07 0000 04/06 1600 Intake Total 170 240 420 Output Total 25 0 1000 Balance 145 240 -580 Intake, IV 120 0 220 Intake, Oral 50 240 200 Number 0 1 Bowel Movements Output, Chest 0 Tube Drainage Output, 1000 Dialysate Output, 25 Emesis Output, Urine 0 0 Patient 141 lb Weight Weight Chair scale Measurement Method Exam General Appearance: no apparent distress, pale, alert, awake, anxious, chronically ill Head: atraumatic, normal appearance Neck: supple Respiratory: no respiratory distress, quiet respiration, lungs clear Cardiovascular: regular rate/rhythm Abdomen: distended but soft, bowel sounds present Extremities: no edema Skin: intact, normal color, warm/dry Results Last 24 Hrs of Lab Results: Laboratory Tests 04/07/17 0407: Anion Gap 22 H, Estimated GFR 23 L, Glucose 100 H, Calcium 9.4, Phosphorus 2.6, Magnesium 2.0, Total Bilirubin 3.2 H, Direct Bilirubin 2.4 H, AST 18, ALT 32, Alkaline Phosphatase 158 H, Total Protein 6.8, Albumin 4.2, CBC w Diff MAN DIFF ORDERED, RBC 3.40 L, MCV 76.9 L, MCH 24.6 L, MCHC 32.0 L, RDW 21.5 H, MPV 12.9 H, Gran % 84.1 H, Lymphocytes % 5.9 L, Monocytes % 9.8 H, Eosinophils % 0.2, Basophils % 0, Absolute Granulocytes 10.0 H, Segmented Neutrophils 89 H, Absolute Lymphocytes 0.7 L, Lymphocytes 2 L, Monocytes 7, Absolute Monocytes 1.2 H, Eosinophils 1, Absolute Eosinophils 0, Basophils 1, Absolute Basophils 0, Platelet Estimate ADEQUATE, Polychromasia 1+, Hypochromic- Microcytic 1+, Poikilocytosis 2+, Basophilic Stippling SLIGHT, Anisocytosis 1+, Microcytic Cells 1+, Ovalocytes 1+, Ahsan Cells 1+, Fld Total RBCs Counted 100 Impression/Plan Impression/Plan Impression/Plan: 1. Leukocytosis, despite ceftazidime for Escherichia coli and Pseudomonas peritonitis. 2. SHELBY superimposed on severe polycystic renal disease with liver complications , and intense ascites. Now on hemodialysis. 3. Resolved respiratory failure. 4. Recent diarrhea, now improved. 5. Brief episodes of nonsustained supraventricular tachycardia, cardiology following. 6. Hyperkalemia. 7. Microcytic anemia, without evidence of active bleeding. 8. Intermittent hypotension. Recommendations: * Agree with transfusing 1 unit of packed red blood cells with dialysis today. * Continue chest tube management as per CT surgery. * Continue Ceftazidime and monitoring of cultures. * Stool for C. difficile if any evidence of diarrhea. * Encourage oral intake. * Continue IV albumin, Neupogen and Renvela as per nephrology. * Morphine as needed for discomfort. * Out of bed to chair/increase activity. * DVT prophylaxis at all times. * Continue telemetry monitoring. * Continue Zofran and Tigan for nausea. * Appreciate all consultants input. * Discussed plan of care with housestaff. I asked them to contact me should the patient's condition change or deteriorate.
[2017-04-07 08:00] VITALS: BP 120/70
--- NOTE | 2017-04-07 10:22 | PN- Infect Dx ---
Subjective Subjective: Afebrile. He notes discomfort in the left chest. He also continues to report nausea and mild abdominal discomfort. Objective Last 24 Hrs of Vital Signs/I&O Vital Signs Date Time Temp Pulse Resp B/P B/P Pulse O2 O2 Flow FiO2 Mean Ox Delivery Rate 04/07 0800 99.1 92 20 120/70 95 Room Air 04/07 0800 95 Room Air 04/07 0400 96 Room Air 04/07 0000 96 Room Air 04/06 2300 98.3 99 16 98/78 98 Room Air 04/06 2000 98 Room Air 04/06 1600 98.2 96 20 100/60 96 Room Air 04/06 1600 96 Room Air 04/06 1356 98 90/58 04/06 1200 98 Room Air Intake & Output 04/07 0800 04/07 0000 Intake Total 170 240 Output Total 25 0 Balance 145 240 Intake, IV 120 0 Intake, Oral 50 240 Number 0 1 Bowel Movements Output, 25 Emesis Output, Urine 0 0 Patient 142 lb Weight Weight Chair scale Measurement Method Physical Exam Other Physical Findings: He is awake and alert in no acute distress Neck dialysis catheter in the right IJ with no inflammation at the site Lungs decreased breath sounds at both bases; pigtail catheter in the right chest with 10 mL output yesterday Heart regular rhythm with no murmur Abdomen is distended, mildly tender to palpation, with no guarding or rebound, positive bowel sounds Extremities no cyanosis, clubbing or edema Results Last 24 Hours of Lab Results: Laboratory Tests 04/07 406 Chemistry Sodium (137 - 145 mmol/L) 146 H Potassium (3.5 - 5.1 mmol/L) 3.8 Chloride (98 - 107 mmol/L) 102 Carbon Dioxide (22 - 30 mmol/L) 22 Anion Gap (5 - 16) 22 H BUN (9 - 20 mg/dL) 38 H Creatinine (0.7 - 1.2 mg/dL) 2.8 H Estimated GFR (>60 ml/min) 23 L Glucose (65 - 99 mg/dL) 100 H Calcium (8.4 - 10.2 mg/dL) 9.4 Phosphorus (2.5 - 4.5 mg/dL) 2.6 Magnesium (1.6 - 2.3 mg/dL) 2.0 Total Bilirubin (0.2 - 1.3 mg/dL) 3.2 H Direct Bilirubin (< 0.4 mg/dL) 2.4 H AST (17 - 59 U/L) 18 ALT (21 - 72 U/L) 32 Alkaline Phosphatase (< 127 U/L) 158 H Total Protein (6.3 - 8.2 g/dL) 6.8 Albumin (3.5 - 5.0 g/dL) 4.2 Hematology CBC w Diff MAN DIFF ORDERED WBC (4.8 - 10.8 /CUMM) 11.9 H RBC (4.70 - 6.10 /CUMM) 3.40 L Hgb (14.0 - 18.0 G/DL) 8.4 L Hct (42 - 52 %) 26.1 L MCV (80.0 - 94.0 FL) 76.9 L MCH (27.0 - 31.0 PG) 24.6 L MCHC (33.0 - 37.0 G/DL) 32.0 L RDW (11.5 - 14.5 %) 21.5 H Plt Count (130 - 400 /CUMM) 140 MPV (7.4 - 10.4 FL) 12.9 H Gran % (42.2 - 75.2 %) 84.1 H Lymphocytes % (20.5 - 51.1 %) 5.9 L Monocytes % (1.7 - 9.3 %) 9.8 H Eosinophils % (0 - 5 %) 0.2 Basophils % (0.0 - 2.0 %) 0 Absolute Granulocytes (1.4 - 6.5 /CUMM) 10.0 H Segmented Neutrophils (42.2 - 75.2 %) 89 H Absolute Lymphocytes (1.2 - 3.4 /CUMM) 0.7 L Lymphocytes (20.5 - 51.1 %) 2 L Monocytes (1.7 - 9.3 %) 7 Absolute Monocytes (0.10 - 0.60 /CUMM) 1.2 H Eosinophils (0 - 5.0 %) 1 Absolute Eosinophils (0.0 - 0.7 /CUMM) 0 Basophils (0.0 - 2.0 %) 1 Absolute Basophils (0.0 - 0.2 /CUMM) 0 Platelet Estimate (ADEQUATE) ADEQUATE Polychromasia 1+ Hypochromic-Microcytic 1+ Poikilocytosis 2+ Basophilic Stippling SLIGHT Anisocytosis 1+ Microcytic Cells 1+ Ovalocytes 1+ Guthrie Cells 1+ Other Body Source Fld Total RBCs Counted (%) 100 Last 24 Hours of Clarke Results: No new cultures Assessment/Plan Impression: Condition remains poor, with intermittent hypotension and persistent nausea, anorexia and poor po intake, though his temperatures remain normal and his white blood cell count has decreased now off antibiotics after 15 days of treatment for peritonitis secondary to Escherichia coli and Pseudomonas secondary to a migrated Pleurx catheter, which has been removed. 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 His bilirubin and alkaline phosphatase continue to increase, of unclear etiology, with his HIDA scan nondiagnostic, and further evaluation of his biliary tree may be helpful. He is scheduled for a therapeutic paracentesis later today, which may alleviate some of his nausea and abdominal discomfort. Suggestion: 1. Consider MRCP and/or GI evaluation to further evaluate his elevated bilirubin and alkaline phosphatase 2. Await therapeutic paracentesis and send fluid for cell count and culture 3. Further management with regard to his nutrition per Medicine 4. Await removal of his pigtail catheter, scheduled for later today 5. Continue to follow off antibiotics
--- NOTE | 2017-04-07 14:47 | ULTRASOUND REPORT ---
EXAMINATION: PARA/PERITONEOCENTESIS CLINICAL INFORMATION: Recurrent ascites TECHNIQUE: Informed consent was obtained from the patient prior to the procedure. During this process, the procedure and potential alternatives were explained, along with the intended outcome and benefits. The risks of the procedure, as wall as the risk of not doing the procedure, were discussed. The patient was given the opportunity to ask questions regarding the procedure and appeared competent to make medical decisions. A signed consent form which documents this discussion was placed in the medical record. A timeout procedure was performed. Ultrasound evaluation of the abdomen for ascites was performed. Hard copy images were stored in our PACS system. A large amount of ascites is noted throughout the abdomen with multiple loculations.. Using standard interventional and sterile techniques, under direct US guidance, a 6 Wolof pigtail catheter was introduced into the right lower quadrant using a standard safety needle technique. Only 2.5 L of clear yellow fluid was removed into the standard Vacutainer bottles per the desire of the medical team caring for the patient. The catheter was then removed. A significant amount of fluid remained. Dermabond was applied to the entry site. Sample of the specimen was sent for the requested lab analysis. The patient demonstrated symptomatic relief. The patient tolerated the procedure well. Complications: None Impression: 1. Successful ultrasound-guided paracentesis of 2.5 L of fluid. Significant amount of fluid remains
--- NOTE | 2017-04-07 17:46 | MRI REPORT ---
EXAMINATION: MR ABDOMEN WITHOUT CONTRAST CLINICAL INFORMATION: Polycystic liver, kidney disease massive ascites. MRCP. Rising liver function tests. COMPARISON: HIDA scan 04/05/2017. CT abdomen pelvis without contrast 03/21/2017 TECHNIQUE: MR abdomen without contrast was obtained using routine sequences. FINDINGS: The study is limited, not only by the lack of intravenous contrast but due to the patient's body habitus and motion artifact. There are innumerable well-circumscribed T2 hyperintense hepatic cysts enlarging the liver consistent with the history of polycystic kidney disease. Dilated the common bile duct, nor the intrahepatic ducts are well visualized, presumably they are not dilated. There is a fluid fluid level within a 15+ cm cyst in the left lobe of the liver, presumably from internal hemorrhage. The liver is not completely imaged, extending off the inferior margin of the sequences. There are innumerable bilateral renal cysts enlarging the bilateral kidneys. The kidneys are not imaged in their entirety. No definite hydronephrosis is seen. More complete evaluation is limited by lack of IV contrast. Normal-appearing spleen seen, displaced posteriorly in the left upper quadrant. There is mass effect on the stomach. Moderate volume of partially imaged ascites. Normal caliber abdominal aorta. The flow-void from the inferior vena cava is visible. No definite retroperitoneal lymphadenopathy. IMPRESSION: Very limited study. The biliary tree is not seen, suggesting that it is not significantly dilated.
[2017-04-07 20:00] VITALS: BP 122/66
[2017-04-08] VITALS: BP 110/76
[2017-04-08 05:20] LABS: ABSOLUTE BASOPHIL COUNT 0 /CUMM (0.0-0.2); ABSOLUTE EOSINOPHIL COUNT 0 /CUMM (0.0-0.7); ABSOLUTE GRANULOCYTE CT 8.9 /CUMM (1.4-6.5); ABSOLUTE LYMPH COUNT 0.5 /CUMM (1.2-3.4); ABSOLUTE MONOCYTE COUNT 1.1 /CUMM (0.10-0.60); BASOPHIL % 0 % (0.0-2.0); EOSINOPHIL % 0.2 % (0-5); GRANULOCYTE % 84.4 % (42.2-75.2); HEMATOCRIT 24.5 % (42-52); MEAN CORPUSCULAR HGB CONC 32.2 G/DL (33.0-37.0); MEAN PLATELET VOLUME 12.4 FL (7.4-10.4); RBC DISTRIBUTION WIDTH 21.1 % (11.5-14.5); WHITE BLOOD CELL COUNT 10.5 /CUMM (4.8-10.8)
[2017-04-08 05:55] LABS: MEAN CORPUSCULAR VOLUME 76.8 FL (80.0-94.0); PLATELET COUNT 152 /CUMM (130-400)
[2017-04-08 05:56] LABS: MEAN CORPUSCULAR HGB 24.7 PG (27.0-31.0); RED BLOOD CELL CT 3.18 /CUMM (4.70-6.10)
--- NOTE | 2017-04-08 07:25 | PN- Resident CRCU ---
Subjective HPI/CRCU Issues: Catheter-associated Peritonitis SHELBY on CKD on HD Nonsustained SVT - resolved Hyperkalemia - resolved Acute hypoxic respiratory failure - resolved 24 Hour Events: Had a diagnostic and therapeutic paracentesis yesterday with removal of 2.5L of ascitic fluid. He received 50gm albumin prior and after the procedure. No acute events overnight. Ascitic fluid studies show decrease in his white blood cell count, with no evidence of peritonitis. Patient complains of LUQ pain with tenderness to palpation. He did have an MRCP yesterday which does reveal any acute process. Objective Vital Signs & I&O Last 8 Hrs of Vitals and I&O: . Exam General Appearance: no apparent distress, alert, awake, cachetic Head: atraumatic, normal appearance Respiratory: normal breath sounds, chest non-tender, lungs clear Cardiovascular: regular rate/rhythm Gastrointestinal: soft, tenderness Extremities: no edema Cranial Nerves: normal hearing, normal speech Skin: stage 3 coccygeal ulcer Skin Temp/Moisture Exam: Warm/Dry Sepsis Skin Exam (color): Normal for Ethnicity Current Medications: Current Medications Sig/Lola Start time Last Medication Dose Route Stop Time Status Admin Acetaminophen 650 MG Q4P PRN 04/01 1815 AC 04/02 PO 1415 Albumin Human 25 GM ONCE ONE 04/07 1345 DC 04/07 IV 04/07 1346 1401 Albumin Human 25 GM Q8 03/24 2200 AC 04/08 IV 0623 Benzocaine/Menthol 1 MYLES Q2P PRN 04/03 1100 AC PO Collagenase 1 BENEDICTO BID 04/02 1100 AC 04/07 TOP 2152 Desvenlafaxine 50 MG MoWeFr@1300 03/30 1300 AC 04/06 Succinate PO 1310 Epoetin Bryan 3,000 UNIT 03/30 1000 AC 04/06 IV 1357 Glycerin 2 SPRAY Q2P PRN 04/01 2045 AC PO Heparin Sodium 5,000 UNIT Q8 03/28 1444 AC 04/08 (Porcine) SC 0607 Morphine Sulfate 2 MG Q4P PRN 04/05 1730 04/08 IV 0747 Multivitamins 1 TAB 1700 03/25 1700 AC 04/07 PO 1757 Omeprazole 40 MG DAILY AC 03/25 1648 04/08 PO 0654 Polyethylene Glycol 17 GM DAILY PRN 04/03 1100 AC 04/06 PO 1850 Promethazine HCl 12.5 MG ONCE ONE 04/08 0745 DC 04/08 IV 04/08 0746 0747 Promethazine HCl 12.5 MG Q4P PRN 03/31 1745 DC 04/06 IV 04/07 1744 0018 Senna/Docusate Sodium 1 TAB BID PRN 04/06 1500 AC 04/06 PO 1850 Sevelamer Carbonate 1,600 MG WITH MEALS 03/24 1700 AC 04/07 PO 1100 Verapamil HCl 180 MG DAILY 03/25 0745 AC 03/29 PO 0934 Impression/Plan Impression/Problem List Impression: Mr. Tijerina is a 66 yo m with a PMH of PKD, Polycystic liver disease, portal HTN , HTN, HLD, umbilical hernia repair, colon ademona, GERD who presented to the ED with NVD with progressively worsened abdominal distention from ascitic fluid. Assessment and Plan: Ascites secondary to Portal Hypertension: * He had a removal of 2.5L of ascitic fluid removal yesterday * Ascitic fluid studies show decreasing white count with no evidence of infection * MRCP yesterday does not reveal any acute abdominal process. * He does have rising LFTs which could be secondary to biliary compression by the cysts. * Per nephrology, he will require weekly paracentesis. * Will follow up ascitic fluid culture - pending. * Continue IV albumin 25gm q8, Neupogen and Renvela Hypotension: - currently resolved. * His blood pressure had been running on the low side past couple of days. * He received Levophed for a few hours peripherally on 04/01 for a couple of hours. . * Currently refuses for a central line placement for administeration of pressors. * Will give bolus if necessary to maintain his blood pressure. Nonsustained SVT (currently resolved) Patient experienced 2 episodes of SVT with HR up to 180s. He was asymptomatic during both events. During the first event he was administered IV Metoprolol 5 mg. The second event spontaneously resolved and did not require medical management * Cardiology recommendations appreciated * Will administer Adenosine for any acute events * Patient to continue on tele monitoring for now. * His beta rose will have to be restarted once his blood pressure is more stable. Catheter-associated Peritonitis - resolved Patient had an indwelling pleural catheter placed in July 2016 for pleural effusion that migrated into the abdominal cavity. Considering that the patient's catheter was never removed it could have been a possible source of infection. He had another catheter placed in the R lung that was eventually removed. CT abdomen/pelvis on admission demonstrated the resolution of his R-side pleural effusion. He gets 1L of ascitic fluid drained from the migrated Pleurx catheter on MWF. Prior to coming to the hospital it was last drained by his visiting nurse. * Had a diagnostic and therapeutic paracentesis again 04/07 * Ceftazidime has been discontinued Depression: * Patient requested for a psych consult as he feels depressed. * Psych has suggested starting him on DesVenlafaxine 50mg daily. * Renal and GI have approved the use of the medication from their standpoint. However, recommend monitoring of LFTs while on the drug. * His LFTs have been uptrending. Will need to discuss about the possibility of continuing the medication. History of PKD, Polycystic liver disease: Patient reported he had an appt at [facility] in which he was told he wouldn't receive a transplant until the resolution of his ascitic fluid. CT abd/pel demonstrated numerous cysts effectively replacing the normal hepatic and bilateral renal parenchyma Diet: Regular Diet with 2g K restriction. DVT Prophylaxis: ALPS Code Status: Full Problem List: 1. Polycystic liver disease 2. Polycystic kidney disease Pain Ratin Tomorrow's Labs & Rationales: CBC, ICU bundle Plan DVT/Prophylaxis: mechanical Tomorrow's Labs & Rationales: CBC, ICU bundle Plan DVT/Prophylaxis: mechanical
[2017-04-08 08:00] VITALS: BP 120/70
--- NOTE | 2017-04-08 08:54 | PN- CRCU ---
Subjective HPI/Critical Care Issues: The patient is resting comfortably. He is currently on dialysis. He continues to feel weak and fatigued. He has had no overnight events. He remains afebrile. He tolerated paracentesis noting 2.5 L were removed without issue. Objective Current Medications: Current Medications Sig/Lola Start time Last Medication Dose Route Stop Time Status Admin Acetaminophen 650 MG Q4P PRN 04/01 1815 AC 04/02 PO 1415 Albumin Human 25 GM ONCE ONE 04/07 1345 DC 04/07 IV 04/07 1346 1401 Albumin Human 50 GM ONCE ONE 04/07 1130 DC 04/07 IV 04/07 1131 1209 Albumin Human 25 GM Q8 03/24 2200 AC 04/08 IV 0623 Benzocaine/Menthol 1 MYLES Q2P PRN 04/03 1100 AC PO Collagenase 1 BENEDICTO BID 04/02 1100 AC 04/07 TOP 2152 Desvenlafaxine 50 MG MoWeFr@1300 03/30 1300 AC 04/06 Succinate PO 1310 Epoetin Bryan 3,000 UNIT 03/30 1000 AC 04/06 IV 1357 Glycerin 2 SPRAY Q2P PRN 04/01 2045 AC PO Heparin Sodium 5,000 UNIT Q8 03/28 1444 AC 04/08 (Porcine) SC 0607 Morphine Sulfate 2 MG Q4P PRN 04/05 1730 AC 04/08 IV 0747 Multivitamins 1 TAB 1700 03/25 1700 AC 04/07 PO 1757 Omeprazole 40 MG DAILY AC 03/25 1648 AC 04/08 PO 0654 Polyethylene Glycol 17 GM DAILY PRN 04/03 1100 AC 04/06 PO 1850 Promethazine HCl 12.5 MG ONCE ONE 04/08 0745 DC 04/08 IV 04/08 0746 0747 Promethazine HCl 12.5 MG Q4P PRN 03/31 1745 DC 04/06 IV 04/07 1744 0018 Senna/Docusate Sodium 1 TAB BID PRN 04/06 1500 AC 04/06 PO 1850 Sevelamer Carbonate 1,600 MG WITH MEALS 03/24 1700 AC 04/07 PO 1100 Verapamil HCl 180 MG DAILY 03/25 0745 AC 03/29 PO 0934 Vital Signs & I&O Last 24 Hrs of Vitals and I&O: Vital Signs Date Time Temp Pulse Resp B/P B/P Pulse O2 O2 Flow FiO2 Mean Ox Delivery Rate 04/08 0400 96 Nasal 2.0L Cannula 04/08 0015 95 Nasal 2.0L Cannula 04/08 0000 95 Nasal 2.0L Cannula 04/08 0000 98.4 93 24 110/76 95 Nasal 2.0L Cannula 04/07 1999 96 Room Air 04/07 1999 98.8 89 18 122/66 96 Room Air 04/07 1209 101 120/70 04/07 1200 94 Room Air Room Air Intake & Output 04/08 1600 04/08 0800 04/08 0000 Intake Total 300 220 Output Total 50 Balance 250 220 Intake, IV 200 100 Intake, Oral 100 120 Output, Urine 50 Exam General Appearance: no apparent distress, pale, alert, awake, anxious, chronically ill Head: atraumatic, normal appearance Neck: supple Respiratory: no respiratory distress, quiet respiration, lungs clear Cardiovascular: regular rate/rhythm Abdomen: distended but soft, bowel sounds present Extremities: no edema Skin: intact, normal color, warm/dry Results Last 24 Hrs of Lab Results: Laboratory Tests 04/08/17 0400: Anion Gap 24 H, Estimated GFR 16 L, Glucose 87, Calcium 9.6, Phosphorus 3.0, Magnesium 2.0, Total Bilirubin 3.5 H, Direct Bilirubin 2.7 H, AST 20, ALT 20 L, Alkaline Phosphatase 118, Total Protein 7.2, Albumin 4.7, CBC w Diff NO MAN DIFF REQ, RBC 3.18 L, MCV 76.8 L, MCH 24.7 L, MCHC 32.2 L, RDW 21.1 H, MPV 12.4 H, Gran % 84.4 H, Lymphocytes % 4.7 L, Monocytes % 10.7 H, Eosinophils % 0.2, Basophils % 0, Absolute Granulocytes 8.9 H, Absolute Lymphocytes 0.5 L, Absolute Monocytes 1.1 H, Absolute Eosinophils 0, Absolute Basophils 0 04/07/17 1349: Fluid Glucose 68, Fluid Total Protein 4.6, Fluid Albumin 2.8, Fluid LDH 365, Fluid Amylase < 30 04/07/17 1348: Lymphocytes 5, % Normal PMNs 30, Misc Hematology Test , Fluid WBC 347 H, Fld Total RBCs Counted 6188 H Impression/Plan Impression/Plan Impression/Plan: 1. Leukocytosis, despite ceftazidime for Escherichia coli and Pseudomonas peritonitis. 2. SHELBY superimposed on severe polycystic renal disease with liver complications , and intense ascites. Now on hemodialysis. The patient is s/p repeat paracentesis 04/07/17, noting 2.5 L of fluid was removed with significant residual ascites. 3. Resolved respiratory failure. 4. Recent diarrhea, now improved. 5. Brief episodes of nonsustained supraventricular tachycardia, cardiology following. 6. Hyperkalemia. 7. Microcytic anemia, without evidence of active bleeding. 8. Intermittent hypotension. 9. Malnutrition with poor by mouth intake. Recommendations: * Monitor off antibiotics as per ID. * Encourage oral intake. * Continue IV albumin, Neupogen and Renvela as per nephrology. * Morphine as needed for discomfort. * Out of bed to chair/increase activity. * DVT prophylaxis at all times. * Continue telemetry monitoring. * Continue Zofran and Tigan for nausea. * Appreciate all consultants input. * Discussed plan of care with housestaff. I asked them to contact me should the patient's condition change or deteriorate. * Downgrade to telemetry.
--- NOTE | 2017-04-08 10:13 | PN- Infect Dx ---
Subjective Subjective: Afebrile without new complaints. He continues to complain of nausea and abdominal discomfort. Objective Last 24 Hrs of Vital Signs/I&O Vital Signs Date Time Temp Pulse Resp B/P B/P Pulse O2 O2 Flow FiO2 Mean Ox Delivery Rate 04/08 0800 92 Room Air 04/08 0800 99.8 94 24 120/70 93 Room Air 04/08 0400 96 Nasal 2.0L Cannula 04/08 0015 95 Nasal 2.0L Cannula 04/08 0000 95 Nasal 2.0L Cannula 04/08 0000 98.4 93 24 110/76 95 Nasal 2.0L Cannula 04/07 1999 96 Room Air 04/07 1999 98.8 89 18 122/66 96 Room Air 04/07 1209 101 120/70 04/07 1200 94 Room Air Room Air Intake & Output 04/08 1600 04/08 0800 04/08 0000 Intake Total 300 220 Output Total 50 Balance 250 220 Intake, IV 200 100 Intake, Oral 100 120 Output, Urine 50 Physical Exam Other Physical Findings: He is chronically ill-appearing but in no acute distress Neck dialysis catheter in the right IJ with no inflammation at the site Lungs are clear Heart regular rhythm with no murmur Abdomen is markedly distended, tender on palpation, with no guarding or rebound, with positive bowel sounds Extremities no cyanosis, clubbing or edema Results Last 24 Hours of Lab Results: Laboratory Tests 04/08 04/07 04/07 0400 1349 1348 Chemistry Sodium (137 - 145 mmol/L) 146 H Potassium (3.5 - 5.1 mmol/L) 4.0 Chloride (98 - 107 mmol/L) 102 Carbon Dioxide (22 - 30 mmol/L) 20 L Anion Gap (5 - 16) 24 H BUN (9 - 20 mg/dL) 54 H Creatinine (0.7 - 1.2 mg/dL) 3.7 H Estimated GFR (>60 ml/min) 16 L Glucose (65 - 99 mg/dL) 87 Calcium (8.4 - 10.2 mg/dL) 9.6 Phosphorus (2.5 - 4.5 mg/dL) 3.0 Magnesium (1.6 - 2.3 mg/dL) 2.0 Total Bilirubin (0.2 - 1.3 mg/dL) 3.5 H Direct Bilirubin (< 0.4 mg/dL) 2.7 H AST (17 - 59 U/L) 20 ALT (21 - 72 U/L) 20 L Alkaline Phosphatase (< 127 U/L) 118 Total Protein (6.3 - 8.2 g/dL) 7.2 Albumin (3.5 - 5.0 g/dL) 4.7 Hematology CBC w Diff NO MAN DIFF REQ WBC (4.8 - 10.8 /CUMM) 10.5 RBC (4.70 - 6.10 /CUMM) 3.18 L Hgb (14.0 - 18.0 G/DL) 7.9 L Hct (42 - 52 %) 24.5 L MCV (80.0 - 94.0 FL) 76.8 L MCH (27.0 - 31.0 PG) 24.7 L MCHC (33.0 - 37.0 G/DL) 32.2 L RDW (11.5 - 14.5 %) 21.1 H Plt Count (130 - 400 /CUMM) 152 MPV (7.4 - 10.4 FL) 12.4 H Gran % (42.2 - 75.2 %) 84.4 H Lymphocytes % (20.5 - 51.1 %) 4.7 L Monocytes % (1.7 - 9.3 %) 10.7 H Eosinophils % (0 - 5 %) 0.2 Basophils % (0.0 - 2.0 %) 0 Absolute Granulocytes (1.4 - 6.5 /CUMM) 8.9 H Absolute Lymphocytes (1.2 - 3.4 /CUMM) 0.5 L Lymphocytes (%) 5 Absolute Monocytes (0.10 - 0.60 /CUMM) 1.1 H Absolute Eosinophils (0.0 - 0.7 /CUMM) 0 Absolute Basophils (0.0 - 0.2 /CUMM) 0 % Normal PMNs (%) 30 Misc Hematology Test (%) Other Body Source Fluid WBC (0 - 5 /CUMM) 347 H Fld Total RBCs Counted (0 /CUMM) 6188 H Fluid Glucose (mg/dL) 68 Fluid Total Protein (g/dL) 4.6 Fluid Albumin (g/dL) 2.8 Fluid LDH (U/L) 365 Fluid Amylase (U/L) < 30 Last 24 Hours of Clarke Results: Ascitic fluid culture April 07 negative Recent Imaging Studies: MRI of the abdomen April 07, a limited study, reveals innumerable well- circumscribed hyperintense hepatic cysts and innumerable bilateral renal cysts, with no hydronephrosis; the biliary tree is not seen, suggesting that there is no biliary dilatation Assessment/Plan Impression: Condition remains poor, with persistent nausea, anorexia and poor po intake, though his temperatures remain normal and his white blood cell count is also now normal off antibiotics after 15 days of treatment for peritonitis secondary to Escherichia coli and Pseudomonas secondary to a migrated Pleurx catheter, which has been removed. His pigtail catheter was removed yesterday. His bilirubin continues to increase but his alkaline phosphatase has normalized and his MRI of the abdomen does not suggest any biliary process. His repeat paracentesis reveals a continued decrease in his white blood cell count, with no evidence of peritonitis. Suggestion: 1. Further management with regard to his nutrition per Medicine 2. Follow-up ascitic fluid culture 3. Continue to follow off antibiotics
--- NOTE | 2017-04-08 11:25 | PN- Nephrology ---
Assessment/Plan Assessment: 1. 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 Peritonitis secondary to Escherichia coli and Pseudomonas in setting of a trans-migrated pleural catheter, since removed - appears to have resolved, leukocytosis also improving. Peritoneal fluid white cell count from yesterday down to 347. Final culture results pending. 3. Severe recurrent ascites secondary to portal hypertension 4. 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 Generalized cachexia Suggestion: 1. Hemodialysis today in progress with 1 L ultrafiltration as blood pressure will allow 2. Next hemodialysis for Tuesday 04/11 3. Weekly paracentesis 4. I will meet with family again later today to share with them the crux of my extensive conversation with [facility] yesterday 5. Continue rehabilitation 6. Nutritional support including caloric supplements i.e. Nepro Subjective Subjective: Patient feels only slightly less bloated since his paracentesis yesterday. Appetite continues to be nonexistent and he still has some nausea. I spoke extensively with [facility] nephrology yesterday who confirmed to me that he is not a viable candidate for organ transplantation. Objective Vital Signs and I&Os Vital Signs Date Time Temp Pulse Resp B/P B/P Pulse O2 O2 Flow FiO2 Mean Ox Delivery Rate 04/08 0800 92 Room Air 04/08 0800 99.8 94 24 120/70 93 Room Air 04/08 0400 96 Nasal 2.0L Cannula 04/08 0015 95 Nasal 2.0L Cannula 04/08 0000 95 Nasal 2.0L Cannula 04/08 0000 98.4 93 24 110/76 95 Nasal 2.0L Cannula 04/07 2000 96 Room Air 04/07 2000 98.8 89 18 122/66 96 Room Air 04/07 1209 101 120/70 04/07 1200 94 Room Air Room Air Intake & Output 04/08 1600 04/08 0400 04/07 1600 04/07 0400 04/06 1600 04/06 0400 Intake Total 300 220 870 240 690 300 Output Total 50 2525 0 1010 Balance 250 220 -1655 240 -320 300 Intake, IV 200 100 520 0 470 300 Intake, Oral 100 120 350 240 220 Number 0 1 Bowel Movements Output, Chest 10 Tube Drainage Output, 1000 Dialysate Output, 25 Emesis Output, Other 2500 Output, Urine 50 0 0 Patient 142 lb 141 lb Weight Weight Chair scale Chair scale Measurement Method Physical Exam: General: Cachectic white male in NAD Skin: No rash or jaundice HEENT: Conjunctivae pale, sclerae anicteric, mucous membranes dry Neck: Without masses or thyromegaly, no supraclavicular or cervical adenopathy Chest: Clear anterolaterally Heart: Regular rate and rhythm without S3 or rub Abdomen: Soft, distended with mild diffuse tenderness and with cystic hepatomegaly and ascites Extremities: Without cyanosis or edema Neuro: No focal findings, no asterixis or myoclonus Results Pertinent Lab Results: Laboratory Tests 04/08 04/07 04/07 0400 1349 1348 Chemistry Sodium (137 - 145 mmol/L) 146 H Potassium (3.5 - 5.1 mmol/L) 4.0 Chloride (98 - 107 mmol/L) 102 Carbon Dioxide (22 - 30 mmol/L) 20 L Anion Gap (5 - 16) 24 H BUN (9 - 20 mg/dL) 54 H Creatinine (0.7 - 1.2 mg/dL) 3.7 H Estimated GFR (>60 ml/min) 16 L Glucose (65 - 99 mg/dL) 87 Calcium (8.4 - 10.2 mg/dL) 9.6 Phosphorus (2.5 - 4.5 mg/dL) 3.0 Magnesium (1.6 - 2.3 mg/dL) 2.0 Total Bilirubin (0.2 - 1.3 mg/dL) 3.5 H Direct Bilirubin (< 0.4 mg/dL) 2.7 H AST (17 - 59 U/L) 20 ALT (21 - 72 U/L) 20 L Alkaline Phosphatase (< 127 U/L) 118 Total Protein (6.3 - 8.2 g/dL) 7.2 Albumin (3.5 - 5.0 g/dL) 4.7 Hematology CBC w Diff NO MAN DIFF REQ WBC (4.8 - 10.8 /CUMM) 10.5 RBC (4.70 - 6.10 /CUMM) 3.18 L Hgb (14.0 - 18.0 G/DL) 7.9 L Hct (42 - 52 %) 24.5 L MCV (80.0 - 94.0 FL) 76.8 L MCH (27.0 - 31.0 PG) 24.7 L MCHC (33.0 - 37.0 G/DL) 32.2 L RDW (11.5 - 14.5 %) 21.1 H Plt Count (130 - 400 /CUMM) 152 MPV (7.4 - 10.4 FL) 12.4 H Gran % (42.2 - 75.2 %) 84.4 H Lymphocytes % (20.5 - 51.1 %) 4.7 L Monocytes % (1.7 - 9.3 %) 10.7 H Eosinophils % (0 - 5 %) 0.2 Basophils % (0.0 - 2.0 %) 0 Absolute Granulocytes (1.4 - 6.5 /CUMM) 8.9 H Absolute Lymphocytes (1.2 - 3.4 /CUMM) 0.5 L Lymphocytes (%) 5 Absolute Monocytes (0.10 - 0.60 /CUMM) 1.1 H Absolute Eosinophils (0.0 - 0.7 /CUMM) 0 Absolute Basophils (0.0 - 0.2 /CUMM) 0 % Normal PMNs (%) 30 Misc Hematology Test (%) Other Body Source Fluid WBC (0 - 5 /CUMM) 347 H Fld Total RBCs Counted (0 /CUMM) 6188 H Fluid Glucose (mg/dL) 68 Fluid Total Protein (g/dL) 4.6 Fluid Albumin (g/dL) 2.8 Fluid LDH (U/L) 365 Fluid Amylase (U/L) < 30 04/07 04/06 0407 1057 Chemistry Sodium (137 - 145 mmol/L) 146 H Potassium (3.5 - 5.1 mmol/L) 3.8 Chloride (98 - 107 mmol/L) 102 Carbon Dioxide (22 - 30 mmol/L) 22 Anion Gap (5 - 16) 22 H BUN (9 - 20 mg/dL) 38 H Creatinine (0.7 - 1.2 mg/dL) 2.8 H Estimated GFR (>60 ml/min) 23 L Glucose (65 - 99 mg/dL) 100 H Calcium (8.4 - 10.2 mg/dL) 9.4 Phosphorus (2.5 - 4.5 mg/dL) 2.6 Magnesium (1.6 - 2.3 mg/dL) 2.0 Total Bilirubin (0.2 - 1.3 mg/dL) 3.2 H Direct Bilirubin (< 0.4 mg/dL) 2.4 H AST (17 - 59 U/L) 18 ALT (21 - 72 U/L) 32 Alkaline Phosphatase (< 127 U/L) 158 H Total Protein (6.3 - 8.2 g/dL) 6.8 Albumin (3.5 - 5.0 g/dL) 4.2 Hematology CBC w Diff MAN DIFF ORDERED WBC (4.8 - 10.8 /CUMM) 11.9 H RBC (4.70 - 6.10 /CUMM) 3.40 L Hgb (14.0 - 18.0 G/DL) 8.4 L Hct (42 - 52 %) 26.1 L MCV (80.0 - 94.0 FL) 76.9 L MCH (27.0 - 31.0 PG) 24.6 L MCHC (33.0 - 37.0 G/DL) 32.0 L RDW (11.5 - 14.5 %) 21.5 H Plt Count (130 - 400 /CUMM) 140 MPV (7.4 - 10.4 FL) 12.9 H Gran % (42.2 - 75.2 %) 84.1 H Lymphocytes % (20.5 - 51.1 %) 5.9 L Monocytes % (1.7 - 9.3 %) 9.8 H Eosinophils % (0 - 5 %) 0.2 Basophils % (0.0 - 2.0 %) 0 Absolute Granulocytes (1.4 - 6.5 /CUMM) 10.0 H Segmented Neutrophils (42.2 - 75.2 %) 89 H Absolute Lymphocytes (1.2 - 3.4 /CUMM) 0.7 L Lymphocytes (20.5 - 51.1 %) 2 L Monocytes (1.7 - 9.3 %) 7 Absolute Monocytes (0.10 - 0.60 /CUMM) 1.2 H Eosinophils (0 - 5.0 %) 1 Absolute Eosinophils (0.0 - 0.7 /CUMM) 0 Basophils (0.0 - 2.0 %) 1 Absolute Basophils (0.0 - 0.2 /CUMM) 0 Platelet Estimate (ADEQUATE) ADEQUATE Polychromasia 1+ Hypochromic-Microcytic 1+ Poikilocytosis 2+ Basophilic Stippling SLIGHT Anisocytosis 1+ Microcytic Cells 1+ Ovalocytes 1+ Ahsan Cells 1+ Other Body Source Fluid WBC Cancelled Fld Total RBCs Counted (%) 100 Cancelled 04/06 04/06 3620 3830 Chemistry Sodium (137 - 145 mmol/L) 144 Potassium (3.5 - 5.1 mmol/L) 4.2 Chloride (98 - 107 mmol/L) 103 Carbon Dioxide (22 - 30 mmol/L) 20 L Anion Gap (5 - 16) 21 H BUN (9 - 20 mg/dL) 56 H Creatinine (0.7 - 1.2 mg/dL) 3.9 H Estimated GFR (>60 ml/min) 15 L Glucose (65 - 99 mg/dL) 76 Calcium (8.4 - 10.2 mg/dL) 8.8 Phosphorus (2.5 - 4.5 mg/dL) 3.2 Magnesium (1.6 - 2.3 mg/dL) 2.0 Total Bilirubin (0.2 - 1.3 mg/dL) 2.9 H Direct Bilirubin (< 0.4 mg/dL) 2.3 H AST (17 - 59 U/L) 19 ALT (21 - 72 U/L) 28 Alkaline Phosphatase (< 127 U/L) 156 H Total Protein (6.3 - 8.2 g/dL) 6.2 L Albumin (3.5 - 5.0 g/dL) 3.8 Hematology CBC w Diff NO MAN DIFF REQ WBC (4.8 - 10.8 /CUMM) 11.9 H RBC (4.70 - 6.10 /CUMM) 3.63 L Hgb (14.0 - 18.0 G/DL) 8.9 L Hct (42 - 52 %) 28.0 L MCV (80.0 - 94.0 FL) 77.1 L MCH (27.0 - 31.0 PG) 24.6 L RDW (11.5 - 14.5 %) 21.2 H Plt Count (130 - 400 /CUMM) 136 MPV (7.4 - 10.4 FL) 12.7 H Gran % (42.2 - 75.2 %) 83.5 H Lymphocytes % (20.5 - 51.1 %) 8.2 L Monocytes % (1.7 - 9.3 %) 8.1 Eosinophils % (0 - 5 %) 0.2 Basophils % (0.0 - 2.0 %) 0 Absolute Granulocytes (1.4 - 6.5 /CUMM) 10.0 H Absolute Lymphocytes (1.2 - 3.4 /CUMM) 1.0 L Absolute Monocytes (0.10 - 0.60 /CUMM) 1.0 H Absolute Eosinophils (0.0 - 0.7 /CUMM) 0 Absolute Basophils (0.0 - 0.2 /CUMM) 0 PUBS MCHC (33.0 - 37.0 G/DL) 31.9 L Other Body Source Fluid Albumin Cancelled
--- NOTE | 2017-04-08 12:10 | PN- Cardiology ---
Subjective Subjective: Currently undergoing dialysis. Cardiac status appears stable. Objective Vital Signs and I&Os Vital Signs Date Time Temp Pulse Resp B/P B/P Pulse O2 O2 Flow FiO2 Mean Ox Delivery Rate 04/08 0800 92 Room Air 04/08 0800 99.8 94 24 120/70 93 Room Air 04/08 0400 96 Nasal 2.0L Cannula 04/08 0015 95 Nasal 2.0L Cannula 04/08 0000 95 Nasal 2.0L Cannula 04/08 0000 98.4 93 24 110/76 95 Nasal 2.0L Cannula 04/07 1999 96 Room Air 04/07 1999 98.8 89 18 122/66 96 Room Air Intake & Output 04/08 1600 04/08 0800 04/08 0000 04/07 1600 04/07 0800 04/07 0000 Intake Total 300 220 700 170 240 Output Total 50 2500 25 0 Balance 250 220 -1800 145 240 Intake, IV 200 100 400 120 0 Intake, Oral 100 120 300 50 240 Number 0 1 Bowel Movements Output, 25 Emesis Output, Other 2500 Output, Urine 50 0 0 Patient 148 lb 142 lb Weight Weight Chair scale Chair scale Measurement Method Current Medications: Current Medications Sig/Lola Start time Last Medication Dose Route Stop Time Status Admin Acetaminophen 650 MG Q4P PRN 04/01 1815 AC 04/02 PO 1415 Albumin Human 25 GM ONCE ONE 04/07 1345 DC 04/07 IV 04/07 1346 1401 Albumin Human 25 GM Q8 03/24 2200 AC 04/08 IV 0623 Benzocaine/Menthol 1 MYLES Q2P PRN 04/03 1100 AC PO Collagenase 1 BENEDICTO BID 04/02 1100 AC 04/07 TOP 2152 Desvenlafaxine 50 MG MoWeFr@1300 03/30 1300 AC 04/06 Succinate PO 1310 Epoetin Bryan 3,000 UNIT 03/30 1000 AC 04/06 IV 1357 Glycerin 2 SPRAY Q2P PRN 04/01 2045 AC PO Heparin Sodium 5,000 UNIT Q8 03/28 1444 AC 04/08 (Porcine) SC 0607 Morphine Sulfate 2 MG Q4P PRN 04/05 1730 AC 04/08 IV 0747 Multivitamins 1 TAB 1700 03/25 1700 AC 04/07 PO 1757 Omeprazole 40 MG DAILY AC 03/25 1648 04/08 PO 0654 Polyethylene Glycol 17 GM DAILY PRN 04/03 1100 AC 04/06 PO 1850 Promethazine HCl 12.5 MG ONCE ONE 04/08 0745 DC 04/08 IV 04/08 0746 0747 Promethazine HCl 12.5 MG Q4P PRN 03/31 1745 DC 04/06 IV 04/07 1744 0018 Senna/Docusate Sodium 1 TAB BID PRN 04/06 1500 AC 04/06 PO 1850 Sevelamer Carbonate 1,600 MG WITH MEALS 03/24 1700 AC 04/07 PO 1100 Verapamil HCl 180 MG DAILY 03/25 0745 AC 03/29 PO 0934 Results Last 48 Hrs of Labs/Mics: Laboratory Tests 04/08/17 0400: Anion Gap 24 H, Estimated GFR 16 L, Glucose 87, Calcium 9.6, Phosphorus 3.0, Magnesium 2.0, Total Bilirubin 3.5 H, Direct Bilirubin 2.7 H, AST 20, ALT 20 L, Alkaline Phosphatase 118, Total Protein 7.2, Albumin 4.7, CBC w Diff NO MAN DIFF REQ, RBC 3.18 L, MCV 76.8 L, MCH 24.7 L, MCHC 32.2 L, RDW 21.1 H, MPV 12.4 H, Gran % 84.4 H, Lymphocytes % 4.7 L, Monocytes % 10.7 H, Eosinophils % 0.2, Basophils % 0, Absolute Granulocytes 8.9 H, Absolute Lymphocytes 0.5 L, Absolute Monocytes 1.1 H, Absolute Eosinophils 0, Absolute Basophils 0 04/07/17 1349: Fluid Glucose 68, Fluid Total Protein 4.6, Fluid Albumin 2.8, Fluid LDH 365, Fluid Amylase < 30 04/07/17 1348: Lymphocytes 5, % Normal PMNs 30, Misc Hematology Test , Fluid WBC 347 H, Fld Total RBCs Counted 6188 H 04/07/17 0407: Anion Gap 22 H, Estimated GFR 23 L, Glucose 100 H, Calcium 9.4, Phosphorus 2.6, Magnesium 2.0, Total Bilirubin 3.2 H, Direct Bilirubin 2.4 H, AST 18, ALT 32, Alkaline Phosphatase 158 H, Total Protein 6.8, Albumin 4.2, CBC w Diff MAN DIFF ORDERED, RBC 3.40 L, MCV 76.9 L, MCH 24.6 L, MCHC 32.0 L, RDW 21.5 H, MPV 12.9 H, Gran % 84.1 H, Lymphocytes % 5.9 L, Monocytes % 9.8 H, Eosinophils % 0.2, Basophils % 0, Absolute Granulocytes 10.0 H, Segmented Neutrophils 89 H, Absolute Lymphocytes 0.7 L, Lymphocytes 2 L, Monocytes 7, Absolute Monocytes 1.2 H, Eosinophils 1, Absolute Eosinophils 0, Basophils 1, Absolute Basophils 0, Platelet Estimate ADEQUATE, Polychromasia 1+, Hypochromic- Microcytic 1+, Poikilocytosis 2+, Basophilic Stippling SLIGHT, Anisocytosis 1+, Microcytic Cells 1+, Ovalocytes 1+, Ahsan Cells 1+, Fld Total RBCs Counted 100 Assessment/Plan Assessment/Plan Assessment: 1. Nonsustained superventricular tachycardia-stable with no significant arrhythmias over the last 24 hours. Brief episodes of non sustained SVT noted. 2. Ascites with SBP vs Catheter-associated Peritonitis 3. Acute on chronic renal insufficiency with polycystic kidneys 4. Polycystic liver disease 5. Hyperkalemia 6. Microcytic anemia 7. Persistent hypotension Recommendations: -continue as per the ICU team. -Continue to monitor on telemetry - Followup labs pending -At some point, when more stable, consider reinstituting low-dose beta rose or low-dose verapamil in the hopes of preventing future episodes of nonsustained SVT. Continue telemetry? Yes
[2017-04-08 16:00] VITALS: BP 102/70
--- NOTE | 2017-04-08 16:53 | RADIOLOGY REPORT ---
EXAMINATION: XR PORTABLE CHEST CLINICAL INFORMATION: Hydrothorax status post Pleurx catheter removal COMPARISON: Chest x-ray 04/03/2017 TECHNIQUE: Portable frontal view of the chest was obtained. FINDINGS: Low lung volumes which limits evaluation. Interval removal of drainage catheter at the right lung base. No pneumothorax. Right-sided Port-A-Cath is stable in position. No lobar consolidation or gross right-sided pleural effusion. Blunting of the left costophrenic angle likely represents a small amount of pleural fluid. Evaluation of the heart is limited given low lung volumes. IMPRESSION: Low lung volumes without lobar consolidation or pneumothorax.
[2017-04-08 22:00] VITALS: BP 122/78
[2017-04-09 06:44] VITALS: BP 126/72
[2017-04-09 08:17] LABS: ABSOLUTE BASOPHIL COUNT 0 /CUMM (0.0-0.2); ABSOLUTE EOSINOPHIL COUNT 0 /CUMM (0.0-0.7); ABSOLUTE GRANULOCYTE CT 7.8 /CUMM (1.4-6.5); ABSOLUTE LYMPH COUNT 0.7 /CUMM (1.2-3.4); ABSOLUTE MONOCYTE COUNT 1.2 /CUMM (0.10-0.60); BASOPHIL % 0.1 % (0.0-2.0); EOSINOPHIL % 0.4 % (0-5); GRANULOCYTE % 80.3 % (42.2-75.2); HEMATOCRIT 25.5 % (42-52); MEAN CORPUSCULAR HGB 24.6 PG (27.0-31.0); MEAN CORPUSCULAR VOLUME 76.9 FL (80.0-94.0); PLATELET COUNT 156 /CUMM (130-400); RBC DISTRIBUTION WIDTH 21.5 % (11.5-14.5); RED BLOOD CELL CT 3.31 /CUMM (4.70-6.10); WHITE BLOOD CELL COUNT 9.7 /CUMM (4.8-10.8)
--- NOTE | 2017-04-09 09:26 | PN- Housestaff ---
Escobar Ribera MD,[facility] 04/09/17 0926: Subjective Follow-up For: Ascites secondary to Portal Hypertension Hypotension: - currently resolved Nonsustained SVT (currently resolved) Catheter-associated Peritonitis - resolved Depression History of PKD, Polycystic liver disease Tele-Events Since Last Visit: NSR Sr [id number] Subjective: Patient visited today, relatively ill looking gentleman, was lying in bed comfortably in no acute distress, was alert and oriented. Patient did not have any complaint at the time of interview, no fever or chills, no shortness of breathing, no chest pain, no other events. Review of Systems Constitutional: Reports: see HPI. Objective Last 24 Hrs of Vital Signs/I&O Vital Signs Date Time Temp Pulse Resp B/P B/P Pulse O2 O2 Flow FiO2 Mean Ox Delivery Rate 04/09 1416 98.1 96 20 102/64 92 Room Air 04/09 0933 90 110/70 04/09 0644 98.4 94 18 126/72 93 Room Air 04/09 0000 Room Air 04/08 2200 98.4 97 18 122/78 91 Intake & Output 04/09 1600 04/09 0800 04/09 0000 Intake Total 160 220 Output Total 0 Balance 160 220 Intake, IV 60 100 Intake, Oral 100 120 Output, Urine 0 Physical Exam General Appearance: Alert, Oriented X3, Cooperative, No Acute Distress, in looking, cachectic Skin: Stage 3 Cpccygeal ulcer Skin Temp/Moisture Exam: Warm/Dry Sepsis Skin Exam (color): Normal for Ethnicity HEENT: Atraumatic, EOMI, Mucous Membr. moist/pink Cardiovascular: Regular Rate, Normal S1, Normal S2 Lungs: Clear to Auscultation Abdomen: distanded, non tender Neurological: Normal Speech Extremities: No Edema Current Medications: Current Medications Sig/Lola Start time Last Medication Dose Route Stop Time Status Admin Acetaminophen 650 MG Q4P PRN 04/01 1815 AC 04/02 PO 1415 Albumin Human 25 GM Q8 03/24 2200 AC 04/09 IV 1336 Benzocaine/Menthol 1 MYLES Q2P PRN 04/03 1100 AC PO Bisacodyl 10 MG ONCE PRN 04/09 1330 AC CA Collagenase 1 BENEDICTO BID 04/02 1100 AC 04/09 TOP 1000 Desvenlafaxine 50 MG MoWeFr@1300 03/30 1300 AC 01/26 Succinate PO 1316 Dronabinol 2.5 MG DAILY 04/09 1400 AC 04/09 PO 1625 Epoetin Bryan 3,000 UNIT 03/30 1000 AC 04/08 IV 1317 Glycerin 2 SPRAY Q2P PRN 04/01 2045 AC PO Heparin Sodium 5,000 UNIT Q8 03/28 1444 AC 04/09 (Porcine) SC 1335 Morphine Sulfate 2 MG Q4P PRN 04/05 1730 AC 04/08 IV 1438 Multivitamins 1 TAB 1700 03/25 1700 AC 04/09 PO 1624 Omeprazole 40 MG DAILY AC 03/25 1648 AC 04/09 PO 0529 Polyethylene Glycol 17 GM DAILY PRN 04/03 1100 AC 04/06 PO 1850 Senna/Docusate Sodium 1 TAB BID PRN 04/06 1500 AC 04/09 PO 1625 Sevelamer Carbonate 1,600 MG WITH MEALS 03/24 1700 AC 04/09 PO 1626 Verapamil HCl 180 MG DAILY 03/25 0745 AC 04/09 PO 0933 Last 24 Hrs of Lab/Clarke Results Last 24 Hrs of Labs/Mics: Laboratory Tests 04/09/17 0710: Anion Gap 25 H, Estimated GFR 23 L, BUN/Creatinine Ratio 13.2, Total Bilirubin 4.1 H, Direct Bilirubin 3.1 H, AST 18, ALT 20 L, Alkaline Phosphatase 144 H, Total Protein 7.5, Albumin 4.8, CBC w Diff NO MAN DIFF REQ, RBC 3.31 L, MCV 76.9 L, MCH 24.6 L, MCHC 32.0 L, RDW 21.5 H, MPV 12.0 H, Gran % 80.3 H, Lymphocytes % 6.7 L, Monocytes % 12.5 H, Eosinophils % 0.4, Basophils % 0.1, Absolute Granulocytes 7.8 H, Absolute Lymphocytes 0.7 L, Absolute Monocytes 1.2 H, Absolute Eosinophils 0, Absolute Basophils 0 Assessment/Plan Assessment: Mr. Tijerina is a 66 yo m with a PMH of PKD, Polycystic liver disease, portal HTN , HTN, HLD, umbilical hernia repair, colon ademona, GERD who presented to the ED with NVD with progressively worsened abdominal distention from ascitic fluid. Patient was initially managed in ICU and with stabilization was transferred to telemetry floor for management of following conditions. Ascites secondary to Portal Hypertension: * s/p removal of ascitic fluid several times * Ascitic fluid studies show decreasing white count with no evidence of infection * MRCP does not reveal any acute abdominal process. * He does have rising LFTs which could be secondary to biliary compression by the cysts. * Per nephrology, he will require weekly paracentesis. * Will follow up ascitic fluid culture - pending. * Continue IV albumin 25gm q8, Neupogen and Renvela Hypotension: - currently resolved. * His blood pressure had been running on the low side past couple of days. * He received Levophed for a few hours peripherally on 04/01 for a couple of hours. * Currently refuses for a central line placement for administeration of pressors. * Will give bolus if necessary to maintain his blood pressure. Nonsustained SVT (currently resolved) Patient experienced 2 episodes of SVT with HR up to 180s. He was asymptomatic during both events. During the first event he was administered IV Metoprolol 5 mg. The second event spontaneously resolved and did not require medical management * Cardiology recommendations appreciated * Will administer Adenosine for any acute events * Patient to continue on tele monitoring for now. * His beta rose will have to be restarted once his blood pressure is more stable. Catheter-associated Peritonitis - resolved Patient had an indwelling pleural catheter placed in July 2016 for pleural effusion that migrated into the abdominal cavity. Considering that the patient's catheter was never removed it could have been a possible source of infection. He had another catheter placed in the R lung that was eventually removed. CT abdomen/pelvis on admission demonstrated the resolution of his R-side pleural effusion. He gets 1L of ascitic fluid drained from the migrated Pleurx catheter on MWF. Prior to coming to the hospital it was last drained by his visiting nurse. * Had a diagnostic and therapeutic paracentesis again 04/07 * Ceftazidime has been discontinued Depression: * Patient requested for a psych consult as he feels depressed. * Psych has suggested starting him on DesVenlafaxine 50mg daily. * Renal and GI have approved the use of the medication from their standpoint. However, recommend monitoring of LFTs while on the drug. * His LFTs have been uptrending. Will need to discuss about the possibility of continuing the medication. History of PKD, Polycystic liver disease: Patient reported he had an appt at [facility] in which he was told he wouldn't receive a transplant until the resolution of his ascitic fluid. CT abd/pel demonstrated numerous cysts effectively replacing the normal hepatic and bilateral renal parenchyma Diet: Regular Diet with 2g K restriction. DVT Prophylaxis: ALPS Code Status: Full Problem List: 1. Polycystic kidney disease 2. Polycystic liver disease 3. Renal insufficiency 4. Ascites 5. Peritonitis Pain Ratin Pain Location: none at time of interview Pain Goal: Pain 4 or less Pain Plan: Continue current plan Tomorrow's Labs & Rationales: CBC BEP Lucero Rueda 04/09/17 1716: Attending MD Review Statement Attending Statement Attending MD Statement: examined this patient, discuss w/resident/PA/PYROTECHNIC ASSEMBLER, agreed w/resident/PA/PYROTECHNIC ASSEMBLER, reviewed EMR data (avail) Attending Assessment/Plan: agree with the above assessement and plan. d/w pt the care plan.
--- NOTE | 2017-04-09 10:15 | PN- Pulmonary ---
Subjective HPI/Critical Care Issues: Patient is out of bed comfortable on room air Objective Current Medications: Current Medications Sig/Lola Start time Last Medication Dose Route Stop Time Status Admin Acetaminophen 650 MG Q4P PRN 04/01 1815 AC 04/02 PO 1415 Albumin Human 25 GM Q8 03/24 2200 AC 04/09 IV 0528 Benzocaine/Menthol 1 MLYES Q2P PRN 04/03 1100 AC PO Collagenase 1 BENEDICTO BID 04/02 1100 AC 04/08 TOP 2204 Desvenlafaxine 50 MG MoWeFr@1300 03/30 1300 AC 04/08 Succinate PO 1316 Epoetin Bryan 3,000 UNIT 03/30 1000 AC 04/08 IV 1317 Glycerin 2 SPRAY Q2P PRN 04/01 2045 AC PO Heparin Sodium 5,000 UNIT Q8 03/28 1444 AC 04/09 (Porcine) SC 0529 Morphine Sulfate 2 MG Q4P PRN 04/05 1730 AC 04/08 IV 1438 Multivitamins 1 TAB 1700 03/25 1700 AC 04/08 PO 1842 Omeprazole 40 MG DAILY AC 03/25 1648 AC 04/09 PO 0529 Polyethylene Glycol 17 GM DAILY PRN 04/03 1100 AC 04/06 PO 1850 Senna/Docusate Sodium 1 TAB BID PRN 04/06 1500 AC 04/06 PO 1850 Sevelamer Carbonate 1,600 MG WITH MEALS 03/24 1700 AC 04/08 PO 1315 Verapamil HCl 180 MG DAILY 03/25 0745 AC 04/09 PO 0933 Vital Signs & I&O Last 24 Hrs of Vitals and I&O: Vital Signs Date Time Temp Pulse Resp B/P B/P Pulse O2 O2 Flow FiO2 Mean Ox Delivery Rate 04/09 0933 90 110/70 04/09 0644 98.4 94 18 126/72 93 Room Air 04/09 0000 Room Air 04/08 220 98.4 97 18 122/78 91 04/08 1600 98.2 96 20 102/70 95 Room Air 04/08 1600 95 Room Air Intake & Output 04/09 1600 04/09 0800 04/09 0000 Intake Total 160 220 Output Total 0 Balance 160 220 Intake, IV 60 100 Intake, Oral 100 120 Output, Urine 0 Room air oxygen saturation 93% exam of his chest shows diminished breath sounds at the bases there are no wheezes cardiac exam shows a regular S1 and S2 without murmurs Impression/Plan Impression/Plan Impression/Plan: 67-year-old gentleman with acute kidney injury in the setting of polycystic disease has improved and was transferred out of the ICU. Yesterday status remains stable on room air Recommendations: No further pulmonary recommendations please call for further issues
[2017-04-09 14:16] VITALS: BP 102/64
[2017-04-09 22:33] VITALS: BP 100/62
[2017-04-10 07:03] VITALS: BP 124/74
[2017-04-10 07:51] LABS: ABSOLUTE BASOPHIL COUNT 0 /CUMM (0.0-0.2); ABSOLUTE EOSINOPHIL COUNT 0.1 /CUMM (0.0-0.7); ABSOLUTE GRANULOCYTE CT 7.6 /CUMM (1.4-6.5); ABSOLUTE LYMPH COUNT 0.7 /CUMM (1.2-3.4); BASOPHIL % 0.3 % (0.0-2.0); EOSINOPHIL % 0.7 % (0-5); MEAN CORPUSCULAR HGB 24.2 PG (27.0-31.0); MEAN CORPUSCULAR HGB CONC 31.8 G/DL (33.0-37.0); MEAN CORPUSCULAR VOLUME 76.2 FL (80.0-94.0); MEAN PLATELET VOLUME 12.4 FL (7.4-10.4); PLATELET COUNT 160 /CUMM (130-400); RED BLOOD CELL CT 3.16 /CUMM (4.70-6.10); WHITE BLOOD CELL COUNT 9.4 /CUMM (4.8-10.8)
--- NOTE | 2017-04-10 12:08 | PN- Cardiology ---
Subjective Subjective: The patient complains of mild left-sided chest discomfort which he notes has been intermittent over days. No diaphoresis. No palpitations. No lightheadedness or dizziness. No shortness of breath. Objective Vital Signs and I&Os Vital Signs Date Time Temp Pulse Resp B/P B/P Pulse O2 O2 Flow FiO2 Mean Ox Delivery Rate 04/10 1045 93 124/74 04/10 0703 98.6 93 20 124/74 90 Room Air 04/09 2233 98.8 92 20 100/62 90 Room Air 04/09 1416 98.1 96 20 102/64 92 Room Air Intake & Output 04/10 1600 04/10 0800 04/10 0000 04/09 1600 04/09 0800 04/09 0000 Intake Total 200 100 300 160 220 Output Total 350 0 Balance 200 100 -50 160 220 Intake, IV 100 100 60 100 Intake, Oral 100 300 100 120 Number 1 1 Bowel Movements Output, Urine 350 0 Patient 135 lb 138 lb Weight Weight Chair scale Chair scale Measurement Method Physical Exam: Gen: NAD HEENT: normal Lungs: clear to auscultation, normal resp. effort Heart: RRR, S1, S2, 2/6 systolic murmur Abdomen: Soft, nontender, no masses Extremities: No edema Neuro: Alert and oriented x 3, cranial nerves intact Current Medications: Current Medications Sig/Lola Start time Last Medication Dose Route Stop Time Status Admin Acetaminophen 650 MG Q4P PRN 04/01 1815 AC 04/02 PO 1415 Albumin Human 25 GM Q8 03/24 2200 AC 04/10 IV 0516 Benzocaine/Menthol 1 MYLES Q2P PRN 04/03 1100 AC PO Bisacodyl 10 MG ONCE PRN 04/09 1330 AC PA Collagenase 1 BENEDICTO BID 04/02 1100 AC 04/09 TOP 2211 Desvenlafaxine 50 MG MoWeFr@1300 03/30 1300 AC 04/08 Succinate PO 1316 Dronabinol 2.5 MG DAILY 04/09 1400 AC 04/10 PO 1044 Epoetin Bryan 3,000 UNIT 03/30 1000 AC 04/08 IV 1317 Glycerin 2 SPRAY Q2P PRN 04/01 2045 AC PO Heparin Sodium 5,000 UNIT Q8 03/28 1444 AC 04/10 (Porcine) SC 0523 Morphine Sulfate 2 MG Q4P PRN 01/23 1730 AC 04/09 IV 2015 Multivitamins 1 TAB 1700 03/25 1700 AC 04/09 PO 1624 Omeprazole 40 MG DAILY AC 03/25 1648 AC 04/10 PO 0521 Polyethylene Glycol 17 GM DAILY PRN 04/03 1100 AC 04/06 PO 1850 Potassium Chloride 20 MEQ ONCE ONE 04/10 1000 DC 04/10 PO 04/10 1001 1048 Senna/Docusate Sodium 1 TAB BID PRN 04/06 1500 AC 04/09 PO 1625 Sevelamer Carbonate 1,600 MG WITH MEALS 03/24 1700 AC 04/10 PO 1045 Verapamil HCl 180 MG DAILY 03/25 0745 AC 04/10 PO 1045 Results Last 48 Hrs of Labs/Mics: Laboratory Tests 04/10/17 0615: Anion Gap 24 H, Estimated GFR 16 L, BUN/Creatinine Ratio 13.8, CBC w Diff NO MAN DIFF REQ, RBC 3.16 L, MCV 76.2 L, MCH 24.2 L, MCHC 31.8 L, RDW 22.0 H, MPV 12.4 H, Gran % 81.0 H, Lymphocytes % 7.1 L, Monocytes % 10.9 H, Eosinophils % 0.7, Basophils % 0.3, Absolute Granulocytes 7.6 H, Absolute Lymphocytes 0.7 L, Absolute Monocytes 1.0 H, Absolute Eosinophils 0.1, Absolute Basophils 0 04/09/17 0710: Anion Gap 25 H, Estimated GFR 23 L, BUN/Creatinine Ratio 13.2, Total Bilirubin 4.1 H, Direct Bilirubin 3.1 H, AST 18, ALT 20 L, Alkaline Phosphatase 144 H, Total Protein 7.5, Albumin 4.8, CBC w Diff NO MAN DIFF REQ, RBC 3.31 L, MCV 76.9 L, MCH 24.6 L, MCHC 32.0 L, RDW 21.5 H, MPV 12.0 H, Gran % 80.3 H, Lymphocytes % 6.7 L, Monocytes % 12.5 H, Eosinophils % 0.4, Basophils % 0.1, Absolute Granulocytes 7.8 H, Absolute Lymphocytes 0.7 L, Absolute Monocytes 1.2 H, Absolute Eosinophils 0, Absolute Basophils 0 Assessment/Plan Assessment/Plan Assessment: 1. Nonsustained superventricular tachycardia-stable with no significant arrhythmias over the last 24 hours 2. Ascites with SBP vs Catheter-associated Peritonitis 3. Acute on chronic renal insufficiency with polycystic kidneys 4. Polycystic liver disease 5. Hyperkalemia 6. Microcytic anemia 7. Persistent hypotension Recommendations: * Would check repeat EKG and troponin today given chest discomfort * Continue telemetry monitoring * Continue cardiac medications Continue telemetry? Yes
[2017-04-10 14:14] VITALS: BP 126/80
--- NOTE | 2017-04-10 15:01 | PN- Att Addend ---
Attending MD Review Statement Attending Statement Attending MD Statement: examined this patient, discuss w/resident/PA/NEWS CORRESPONDENT, reviewed EMR data (avail) Attending Assessment/Plan: Laboratory Tests 04/10/17 1300: Troponin I < 0.01 04/10/17 0615: Anion Gap 24 H, Estimated GFR 16 L, BUN/Creatinine Ratio 13.8, CBC w Diff NO MAN DIFF REQ, RBC 3.16 L, MCV 76.2 L, MCH 24.2 L, MCHC 31.8 L, RDW 22.0 H, MPV 12.4 H, Gran % 81.0 H, Lymphocytes % 7.1 L, Monocytes % 10.9 H, Eosinophils % 0.7, Basophils % 0.3, Absolute Granulocytes 7.6 H, Absolute Lymphocytes 0.7 L, Absolute Monocytes 1.0 H, Absolute Eosinophils 0.1, Absolute Basophils 0 Vital Signs Date Time Temp Pulse Resp B/P B/P Pulse O2 O2 Flow FiO2 Mean Ox Delivery Rate 04/10 1414 98.2 95 20 126/80 90 Room Air 04/10 1045 93 124/74 04/10 0703 98.6 93 20 124/74 90 Room Air 04/09 2233 98.8 92 20 100/62 90 Room Air Pt seen and examined at bedside. Recurrent ascites secondary to portal hypertension and pleural effusion secondary to hydrothorax - paracentesis as needed. SBP- resolved now. off abx. APKD with ESRD on HD- f/u on nephrology recommendations. NSVT- d/w cardiology dr griffin. will get EKG and trop today due to chest discomfort. Cont tele monitoring for now. Poor appetite- started on marinol. see if that helps. Will d/w nephrology goals of care and disposition plan.
[2017-04-10 21:43] VITALS: BP 110/78
[2017-04-11 06:23] VITALS: BP 98/64
--- NOTE | 2017-04-11 08:08 | PN- Housestaff ---
Escobar Ribera MD,[facility] 04/11/17 0808: Subjective Follow-up For: Ascites secondary to Portal Hypertension Hypotension: - currently resolved Nonsustained SVT (currently resolved) Catheter-associated Peritonitis - resolved Depression History of PKD, Polycystic liver disease, on dialysis Tele-Events Since Last Visit: SR 77-80 Subjective: Patient visited today, ill looking, cachectic, was lying in bed comfortably in no acute distress, was alert and oriented. No fever or chills, no chest pain, no other events. Daryl Hearn MD is following regarding possibility of hepatorenal transplant in [facility]. Contacted Dr. Dr. Welch who recommended to consider PEG line placement by IR to improve nutrition. Dex venlafaxin was help temproraily due to deterioration of hypertension function. Review of Systems Constitutional: Reports: no symptoms. Objective Last 24 Hrs of Vital Signs/I&O Vital Signs Date Time Temp Pulse Resp B/P B/P Pulse O2 O2 Flow FiO2 Mean Ox Delivery Rate 04/11 1149 84 120/84 04/11 0623 98.1 81 18 98/64 89 Room Air 04/11 0000 90 Room Air Room Air 04/10 2143 98.4 87 18 110/78 89 Intake & Output 04/11 1600 04/11 0800 04/11 0000 Intake Total 1000 210 170 Output Total Balance 1000 210 170 Intake, 1000 Dialysate Intake, IV 110 120 Intake, Oral 100 50 Patient 134 lb Weight Physical Exam General Appearance: Alert, Oriented X3, Cooperative, No Acute Distress, ill looking cachectic Skin: Stage 3 Cpccygeal ulcer Skin Temp/Moisture Exam: Warm/Dry Sepsis Skin Exam (color): Normal for Ethnicity HEENT: Atraumatic, EOMI, Mucous Membr. moist/pink Cardiovascular: Regular Rate, Normal S1, Normal S2 Lungs: Clear to Auscultation Abdomen: distended, no tenderness Neurological: Normal Speech Extremities: No Edema Current Medications: Current Medications Sig/Lola Start time Last Medication Dose Route Stop Time Status Admin Acetaminophen 650 MG Q4P PRN 04/01 1815 AC 04/02 PO 1415 Albumin Human 25 GM Q8 03/24 2200 AC 04/11 IV 1153 Benzocaine/Menthol 1 MYLES Q2P PRN 04/03 1100 AC PO Bisacodyl 10 MG ONCE PRN 04/09 1330 AC SD Collagenase 1 BENEDICTO BID 04/02 1100 AC 04/11 TOP 1153 Desvenlafaxine 50 MG MoWeFr@1300 03/30 1300 DC 04/11 Succinate PO 1149 Dronabinol 2.5 MG DAILY 04/09 1400 AC 04/11 PO 1151 Epoetin Bryan 3,000 UNIT 03/30 1000 AC 04/08 IV 1317 Glycerin 2 SPRAY Q2P PRN 04/01 2045 AC PO Heparin Sodium 5,000 UNIT Q8 03/28 1444 AC 04/11 (Porcine) SC 0525 Morphine Sulfate 2 MG Q4P PRN 04/05 1730 AC 04/10 IV 2135 Multivitamins 1 TAB 1700 03/25 1700 AC 04/10 PO 1713 Omeprazole 40 MG DAILY AC 03/25 1648 AC 04/11 PO 0525 Polyethylene Glycol 17 GM DAILY PRN 04/03 1100 AC 04/06 PO 1850 Senna/Docusate Sodium 1 TAB BID PRN 04/06 1500 AC 04/09 PO 1625 Sevelamer Carbonate 1,600 MG WITH MEALS 03/24 1700 AC 04/11 PO 1149 Verapamil HCl 180 MG DAILY 03/25 0745 AC 04/11 PO 1149 Last 24 Hrs of Lab/Clarke Results Last 24 Hrs of Labs/Mics: Laboratory Tests 04/11/17 0734: Anion Gap 25 H, Estimated GFR 13 L, BUN/Creatinine Ratio 15.1, Glucose 87, Calcium 10.0, Total Bilirubin 4.3 H, Direct Bilirubin 3.4 H, AST 22, ALT 11 L , Alkaline Phosphatase 144 H, Total Protein 7.6, Albumin 4.7, Prealbumin 8.0 L , CBC w Diff NO MAN DIFF REQ, RBC 3.20 L, MCV 75.9 L, MCH 24.4 L, MCHC 32.2 L, RDW 22.1 H, MPV 10.0, Gran % 81.1 H, Lymphocytes % 7.3 L, Monocytes % 10.3 H, Eosinophils % 1.0, Basophils % 0.3, Absolute Granulocytes 8.2 H, Absolute Lymphocytes 0.7 L, Absolute Monocytes 1.0 H, Absolute Eosinophils 0.1, Absolute Basophils 0 04/11/17 0720: Anion Gap 27 H, Estimated GFR 13 L, BUN/Creatinine Ratio 15.0, CBC w Diff MAN DIFF ORDERED, RBC 3.33 L, MCV 76.2 L, MCH 24.1 L, MCHC 31.6 L, RDW 22.8 H, MPV 12.1 H, Gran % 81.3 H, Lymphocytes % 7.2 L, Monocytes % 10.3 H, Eosinophils % 1.1, Basophils % 0.1, Absolute Granulocytes 7.3 H, Absolute Lymphocytes 0.6 L, Absolute Monocytes 0.9 H, Absolute Eosinophils 0.1, Absolute Basophils 0, Hypochromic-Microcytic 3+, Poikilocytosis 2+, Anisocytosis 3+, Microcytic Cells 3+ 04/10/17 1622: Troponin I < 0.01 Assessment/Plan Assessment: Mr. Tijerina is a 66 yo m with a PMH of PKD, Polycystic liver disease, portal HTN , HTN, HLD, umbilical hernia repair, colon ademona, GERD who presented to the ED with NVD with progressively worsened abdominal distention from ascitic fluid. Patient was initially managed in ICU and with stabilization was transferred to telemetry floor for management of following conditions. Hepatic cirrhosis Ascites secondary to PHT: * s/p removal of ascitic fluid several times * Ascitic fluid studies show decreasing white count with no evidence of infection * MRCP does not reveal any acute abdominal process. * He does have rising LFTs which could be secondary to biliary compression by the cysts * Detoriation of liver function today, one possibility could be related adrienne- venlafaxin, will hold temprorilary * Per nephrology, he will require weekly paracentesis. * Will follow up ascitic fluid culture - pending. * will hold IV albumin 25gm q8 today, considering Albumin of 4.8, prealb 8 which is low * Neupogen and Renvela Hypotension: - currently resolved. * His blood pressure had been running on the low side past couple of days. * He received Levophed for a few hours peripherally on 04/01 for a couple of hours. * Currently refuses for a central line placement for administeration of pressors. * Will give bolus if necessary to maintain his blood pressure. Nonsustained SVT (currently resolved) Patient experienced 2 episodes of SVT with HR up to 180s. He was asymptomatic during both events. During the first event he was administered IV Metoprolol 5 mg. The second event spontaneously resolved and did not require medical management * Cardiology recommendations appreciated * Will administer Adenosine for any acute events * Patient to continue on tele monitoring for now. * His beta rose will have to be restarted once his blood pressure is more stable. Catheter-associated Peritonitis - resolved Patient had an indwelling pleural catheter placed in July 2016 for pleural effusion that migrated into the abdominal cavity. Considering that the patient's catheter was never removed it could have been a possible source of infection. He had another catheter placed in the R lung that was eventually removed. CT abdomen/pelvis on admission demonstrated the resolution of his R-side pleural effusion. He gets 1L of ascitic fluid drained from the migrated Pleurx catheter on MWF. Prior to coming to the hospital it was last drained by his visiting nurse. * Had a diagnostic and therapeutic paracentesis again 04/07 * Ceftazidime has been discontinued Depression: * Patient requested for a psych consult as he feels depressed. * Psych has suggested starting him on DesVenlafaxine 50mg daily. * We will hold desvenlafaxine today and monitor LFT * Renal and GI have approved the use of the medication from their standpoint. However, recommend monitoring of LFTs while on the drug. * His LFTs have been uptrending. Will need to discuss about the possibility of continuing the medication. History of PKD, Polycystic liver disease: Patient reported he had an appt at [facility] in which he was told he wouldn't receive a transplant until the resolution of his ascitic fluid. CT abd/pel demonstrated numerous cysts effectively replacing the normal hepatic and bilateral renal parenchyma * follow up hepatorenal transplant Diet: Regular Diet with 2g K restriction. DVT Prophylaxis: ALPS Code Status: Full Problem List: 1. Ascites 2. Portal hypertension 3. Renal insufficiency 4. Polycystic liver disease 5. Polycystic kidney disease Pain Ratin Pain Location: none Pain Goal: Pain 4 or less Pain Plan: continue current plan Tomorrow's Labs & Rationales: cbc ramonp Lucero Rueda 04/11/17 1433: Attending MD Review Statement Attending Statement Attending MD Statement: examined this patient, discuss w/resident/PA/CONTROLLED ATMOSPHERIC FURNACE BRAZER, agreed w/resident/PA/CONTROLLED ATMOSPHERIC FURNACE BRAZER, reviewed EMR data (avail) Attending Assessment/Plan: Agree with the above assessment and plan. Pt still does not have good appetite - cont on marinol and pt still on iv albumin , will d/w nephrology to see if we need to decrease the dose of iv albumin and taper off . ESRD on HD- pt feeling weak after HD. Had some chest pressure yesterday- trop times 2 negative. EKG was ok.
[2017-04-11 08:37] LABS: ABSOLUTE BASOPHIL COUNT 0 /CUMM (0.0-0.2); ABSOLUTE EOSINOPHIL COUNT 0.1 /CUMM (0.0-0.7); ABSOLUTE GRANULOCYTE CT 7.3 /CUMM (1.4-6.5); ABSOLUTE LYMPH COUNT 0.6 /CUMM (1.2-3.4); ABSOLUTE MONOCYTE COUNT 0.9 /CUMM (0.10-0.60); BASOPHIL % 0.1 % (0.0-2.0); EOSINOPHIL % 1.1 % (0-5); GRANULOCYTE % 81.3 % (42.2-75.2); HEMATOCRIT 25.4 % (42-52); MEAN CORPUSCULAR HGB 24.1 PG (27.0-31.0); MEAN CORPUSCULAR HGB CONC 31.6 G/DL (33.0-37.0); MEAN CORPUSCULAR VOLUME 76.2 FL (80.0-94.0); MEAN PLATELET VOLUME 12.1 FL (7.4-10.4); PLATELET COUNT 168 /CUMM (130-400); RBC DISTRIBUTION WIDTH 22.8 % (11.5-14.5); RED BLOOD CELL CT 3.33 /CUMM (4.70-6.10); WHITE BLOOD CELL COUNT 8.9 /CUMM (4.8-10.8)
[2017-04-11 08:42] LABS: ABSOLUTE BASOPHIL COUNT 0 /CUMM (0.0-0.2); ABSOLUTE EOSINOPHIL COUNT 0.1 /CUMM (0.0-0.7); ABSOLUTE GRANULOCYTE CT 8.2 /CUMM (1.4-6.5); ABSOLUTE LYMPH COUNT 0.7 /CUMM (1.2-3.4); BASOPHIL % 0.3 % (0.0-2.0); GRANULOCYTE % 81.1 % (42.2-75.2); HEMATOCRIT 24.2 % (42-52); MEAN CORPUSCULAR HGB 24.4 PG (27.0-31.0); MEAN CORPUSCULAR HGB CONC 32.2 G/DL (33.0-37.0); MEAN CORPUSCULAR VOLUME 75.9 FL (80.0-94.0); PLATELET COUNT 146 /CUMM (130-400); RBC DISTRIBUTION WIDTH 22.1 % (11.5-14.5); WHITE BLOOD CELL COUNT 10.1 /CUMM (4.8-10.8)
--- NOTE | 2017-04-11 10:18 | Discharge Summary ---
Hospital Course Allergies: Coded Allergies: NO KNOWN ALLERGIES (02/26/15)
--- NOTE | 2017-04-11 10:31 | PN- Nephrology ---
Assessment/Plan Assessment: ESRD. polycystic kidney / liver disease. portal hypertension with ascites. Pt on dialysis now Main issue at this point is trying to improve nutrition. Would discuss with GI options for nutrition and control of nausea. He will not make progress unless we are able to get on top of the nutrition issue. Suggestion: . Subjective Subjective: Pt on dialysis now. Still poor po intake. c/o nausea/poor appetite. Objective Vital Signs and I&Os Ill appearing gentleman in bed 98/64 81 98.1 Skin neg rash ENT moist Lungs clear Cor RRR Abd soft pos ascites Ext neg edema Results Pertinent Lab Results: Laboratory Tests 04/11 04/11 04/10 0734 0720 1622 Chemistry Sodium (137 - 145 mmol/L) 144 145 Potassium (3.5 - 5.1 mmol/L) 4.1 4.0 Chloride (98 - 107 mmol/L) 98 99 Carbon Dioxide (22 - 30 mmol/L) 21 L 19 L Anion Gap (5 - 16) 25 H 27 H BUN (9 - 20 mg/dL) 68 H 66 H Creatinine (0.7 - 1.2 mg/dL) 4.5 H 4.4 H Estimated GFR (>60 ml/min) 13 L 13 L BUN/Creatinine Ratio (7 - 25 %) 15.1 15.0 Glucose (65 - 99 mg/dL) 87 Calcium (8.4 - 10.2 mg/dL) 10.0 Total Bilirubin (0.2 - 1.3 mg/dL) 4.3 H Direct Bilirubin (< 0.4 mg/dL) 3.4 H AST (17 - 59 U/L) 22 ALT (21 - 72 U/L) 11 L Alkaline Phosphatase (< 127 U/L) 144 H Troponin I (<0.11 ng/ml) < 0.01 Total Protein (6.3 - 8.2 g/dL) 7.6 Albumin (3.5 - 5.0 g/dL) 4.7 Prealbumin (17.6 - 36.0 mg/dL) 8.0 L Hematology CBC w Diff NO MAN DIFF REQ Pending WBC (4.8 - 10.8 /CUMM) 10.1 Pending RBC (4.70 - 6.10 /CUMM) 3.20 L Pending Hgb (14.0 - 18.0 G/DL) 7.8 L Pending Hct (42 - 52 %) 24.2 L Pending MCV (80.0 - 94.0 FL) 75.9 L Pending MCH (27.0 - 31.0 PG) 24.4 L Pending MCHC (33.0 - 37.0 G/DL) 32.2 L Pending RDW (11.5 - 14.5 %) 22.1 H Pending Plt Count (130 - 400 /CUMM) 146 Pending MPV (7.4 - 10.4 FL) 10.0 Pending Gran % (42.2 - 75.2 %) 81.1 H Lymphocytes % (20.5 - 51.1 %) 7.3 L Monocytes % (1.7 - 9.3 %) 10.3 H Eosinophils % (0 - 5 %) 1.0 Basophils % (0.0 - 2.0 %) 0.3 Absolute Granulocytes (1.4 - 6.5 /CUMM) 8.2 H Absolute Lymphocytes (1.2 - 3.4 /CUMM) 0.7 L Absolute Monocytes (0.10 - 0.60 /CUMM) 1.0 H Absolute Eosinophils (0.0 - 0.7 /CUMM) 0.1 Absolute Basophils (0.0 - 0.2 /CUMM) 0 04/10 04/10 1300 0615 Chemistry Sodium (137 - 145 mmol/L) 145 Potassium (3.5 - 5.1 mmol/L) 3.7 Chloride (98 - 107 mmol/L) 99 Carbon Dioxide (22 - 30 mmol/L) 21 L Anion Gap (5 - 16) 24 H BUN (9 - 20 mg/dL) 51 H Creatinine (0.7 - 1.2 mg/dL) 3.7 H Estimated GFR (>60 ml/min) 16 L BUN/Creatinine Ratio (7 - 25 %) 13.8 Troponin I (<0.11 ng/ml) < 0.01 Hematology CBC w Diff NO MAN DIFF REQ WBC (4.8 - 10.8 /CUMM) 9.4 RBC (4.70 - 6.10 /CUMM) 3.16 L Hgb (14.0 - 18.0 G/DL) 7.6 L Hct (42 - 52 %) 24.0 L MCV (80.0 - 94.0 FL) 76.2 L MCH (27.0 - 31.0 PG) 24.2 L MCHC (33.0 - 37.0 G/DL) 31.8 L RDW (11.5 - 14.5 %) 22.0 H Plt Count (130 - 400 /CUMM) 160 MPV (7.4 - 10.4 FL) 12.4 H Gran % (42.2 - 75.2 %) 81.0 H Lymphocytes % (20.5 - 51.1 %) 7.1 L Monocytes % (1.7 - 9.3 %) 10.9 H Eosinophils % (0 - 5 %) 0.7 Basophils % (0.0 - 2.0 %) 0.3 Absolute Granulocytes (1.4 - 6.5 /CUMM) 7.6 H Absolute Lymphocytes (1.2 - 3.4 /CUMM) 0.7 L Absolute Monocytes (0.10 - 0.60 /CUMM) 1.0 H Absolute Eosinophils (0.0 - 0.7 /CUMM) 0.1 Absolute Basophils (0.0 - 0.2 /CUMM) 0 04/09 0710 Chemistry Sodium (137 - 145 mmol/L) 145 Potassium (3.5 - 5.1 mmol/L) 3.7 Chloride (98 - 107 mmol/L) 100 Carbon Dioxide (22 - 30 mmol/L) 21 L Anion Gap (5 - 16) 25 H BUN (9 - 20 mg/dL) 37 H Creatinine (0.7 - 1.2 mg/dL) 2.8 H Estimated GFR (>60 ml/min) 23 L BUN/Creatinine Ratio (7 - 25 %) 13.2 Total Bilirubin (0.2 - 1.3 mg/dL) 4.1 H Direct Bilirubin (< 0.4 mg/dL) 3.1 H AST (17 - 59 U/L) 18 ALT (21 - 72 U/L) 20 L Alkaline Phosphatase (< 127 U/L) 144 H Total Protein (6.3 - 8.2 g/dL) 7.5 Albumin (3.5 - 5.0 g/dL) 4.8 Hematology CBC w Diff NO MAN DIFF REQ WBC (4.8 - 10.8 /CUMM) 9.7 RBC (4.70 - 6.10 /CUMM) 3.31 L Hgb (14.0 - 18.0 G/DL) 8.2 L Hct (42 - 52 %) 25.5 L MCV (80.0 - 94.0 FL) 76.9 L MCH (27.0 - 31.0 PG) 24.6 L MCHC (33.0 - 37.0 G/DL) 32.0 L RDW (11.5 - 14.5 %) 21.5 H Plt Count (130 - 400 /CUMM) 156 MPV (7.4 - 10.4 FL) 12.0 H Gran % (42.2 - 75.2 %) 80.3 H Lymphocytes % (20.5 - 51.1 %) 6.7 L Monocytes % (1.7 - 9.3 %) 12.5 H Eosinophils % (0 - 5 %) 0.4 Basophils % (0.0 - 2.0 %) 0.1 Absolute Granulocytes (1.4 - 6.5 /CUMM) 7.8 H Absolute Lymphocytes (1.2 - 3.4 /CUMM) 0.7 L Absolute Monocytes (0.10 - 0.60 /CUMM) 1.2 H Absolute Eosinophils (0.0 - 0.7 /CUMM) 0 Absolute Basophils (0.0 - 0.2 /CUMM) 0
--- NOTE | 2017-04-11 11:23 | PN- Infect Dx ---
Subjective Subjective: Afebrile. He continues to complain of nausea and poor po intake with mild abdominal discomfort. Objective Last 24 Hrs of Vital Signs/I&O Vital Signs Date Time Temp Pulse Resp B/P B/P Pulse O2 O2 Flow FiO2 Mean Ox Delivery Rate 04/11 0623 98.1 81 18 98/64 89 Room Air 04/11 0000 90 Room Air Room Air 04/10 2143 98.4 87 18 110/78 89 04/10 1414 98.2 95 20 126/80 90 Room Air Intake & Output 04/11 1600 04/11 0800 04/11 0000 Intake Total 210 170 Output Total Balance 210 170 Intake, IV 110 120 Intake, Oral 100 50 Physical Exam Other Physical Findings: He is awake and alert in no acute distress, currently being dialyzed Neck dialysis catheter in the right IJ with no inflammation at the site Lungs are clear Heart regular rhythm with no murmur Abdomen is distended, minimally tender on palpation, with positive bowel sounds Extremities no cyanosis, clubbing or edema Results Last 24 Hours of Lab Results: Laboratory Tests 04/11 04/11 0734 0720 Chemistry Sodium (137 - 145 mmol/L) 144 145 Potassium (3.5 - 5.1 mmol/L) 4.1 4.0 Chloride (98 - 107 mmol/L) 98 99 Carbon Dioxide (22 - 30 mmol/L) 21 L 19 L Anion Gap (5 - 16) 25 H 27 H BUN (9 - 20 mg/dL) 68 H 66 H Creatinine (0.7 - 1.2 mg/dL) 4.5 H 4.4 H Estimated GFR (>60 ml/min) 13 L 13 L BUN/Creatinine Ratio (7 - 25 %) 15.1 15.0 Glucose (65 - 99 mg/dL) 87 Calcium (8.4 - 10.2 mg/dL) 10.0 Total Bilirubin (0.2 - 1.3 mg/dL) 4.3 H Direct Bilirubin (< 0.4 mg/dL) 3.4 H AST (17 - 59 U/L) 22 ALT (21 - 72 U/L) 11 L Alkaline Phosphatase (< 127 U/L) 144 H Total Protein (6.3 - 8.2 g/dL) 7.6 Albumin (3.5 - 5.0 g/dL) 4.7 Prealbumin (17.6 - 36.0 mg/dL) 8.0 L Hematology CBC w Diff NO MAN DIFF REQ MAN DIFF ORDERED WBC (4.8 - 10.8 /CUMM) 10.1 8.9 RBC (4.70 - 6.10 /CUMM) 3.20 L 3.33 L Hgb (14.0 - 18.0 G/DL) 7.8 L 8.0 L Hct (42 - 52 %) 24.2 L 25.4 L MCV (80.0 - 94.0 FL) 75.9 L 76.2 L MCH (27.0 - 31.0 PG) 24.4 L 24.1 L MCHC (33.0 - 37.0 G/DL) 32.2 L 31.6 L RDW (11.5 - 14.5 %) 22.1 H 22.8 H Plt Count (130 - 400 /CUMM) 146 168 MPV (7.4 - 10.4 FL) 10.0 12.1 H Gran % (42.2 - 75.2 %) 81.1 H 81.3 H Lymphocytes % (20.5 - 51.1 %) 7.3 L 7.2 L Monocytes % (1.7 - 9.3 %) 10.3 H 10.3 H Eosinophils % (0 - 5 %) 1.0 1.1 Basophils % (0.0 - 2.0 %) 0.3 0.1 Absolute Granulocytes (1.4 - 6.5 /CUMM) 8.2 H 7.3 H Absolute Lymphocytes (1.2 - 3.4 /CUMM) 0.7 L 0.6 L Absolute Monocytes (0.10 - 0.60 /CUMM) 1.0 H 0.9 H Absolute Eosinophils (0.0 - 0.7 /CUMM) 0.1 0.1 Absolute Basophils (0.0 - 0.2 /CUMM) 0 0 Hypochromic-Microcytic 3+ Poikilocytosis 2+ Anisocytosis 3+ Microcytic Cells 3+ 04/10 04/10 1622 1300 Chemistry Troponin I (<0.11 ng/ml) < 0.01 < 0.01 Last 24 Hours of [place] Results: Ascitic fluid culture April 07 negative Assessment/Plan Impression: Condition remains poor, though stable, with persistent nausea, anorexia and poor po intake, though his temperatures and white blood cell count are normal status post 15 days of treatment for peritonitis secondary to Escherichia coli and Pseudomonas secondary to a migrated Pleurx catheter, which has been removed. His bilirubin continues to increase with his alkaline phosphatase also slightly increased of unclear etiology, with an MRI of the abdomen negative for any obvious biliary process. His repeat paracentesis reveals a continued decrease in his white blood cell count, with no evidence of peritonitis. Suggestion: 1. Further management with regard to his nutrition per Medicine 2. Consider GI evaluation of his increasing bilirubin and alkaline phosphatase 3. Continue to follow off antibiotics Will no longer follow at this time, but please call with any questions
[2017-04-11 14:40] VITALS: BP 102/60
[2017-04-11 22:46] VITALS: BP 108/72
[2017-04-12 06:33] VITALS: BP 108/74
--- NOTE | 2017-04-12 07:22 | PN- Housestaff ---
Escobar Ribera MD,[facility] 04/12/17 0722: Subjective Follow-up For: Ascites secondary to Portal Hypertension Hypotension: - currently resolved Nonsustained SVT (currently resolved) Catheter-associated Peritonitis - resolved Depression History of PKD, Polycystic liver disease, on dialysis Tele-Events Since Last Visit: SR 84-86 Subjective: Patient visited today, ill looking, cachectic, was lying in bed comfortably in no acute distress, was alert and oriented. He feels weak. He reported decreased appetite and nausea. also complained of abdominal discomfort. No fever or chills, no chest pain, no other events. We will follow with Dr. Hearn regarding long-term plans. Review of Systems Constitutional: Reports: see HPI. Objective Last 24 Hrs of Vital Signs/I&O Vital Signs Date Time Temp Pulse Resp B/P B/P Pulse O2 O2 Flow FiO2 Mean Ox Delivery Rate 04/12 0633 97.9 82 12 108/74 92 Room Air 04/11 2246 98.3 89 22 108/72 89 04/11 2152 Room Air 04/11 1440 98.6 97 16 102/60 90 Room Air 04/11 1149 84 120/84 Intake & Output 04/12 1600 04/12 0800 04/12 0000 Intake Total 300 160 Output Total 50 Balance 300 110 Intake, IV 60 60 Intake, Oral 240 100 Number 1 Bowel Movements Output, Urine 50 Physical Exam General Appearance: Alert, Oriented X3, Cooperative, cachectic, ill looking, Skin: skin lesion over sacral area Skin Temp/Moisture Exam: Warm/Dry Sepsis Skin Exam (color): Normal for Ethnicity HEENT: Atraumatic, EOMI, Mucous Membr. moist/pink Cardiovascular: Regular Rate, Normal S1, Normal S2 Lungs: Clear to Auscultation Abdomen: distanded, no tenderness Extremities: No Edema Current Medications: Current Medications Sig/Lola Start time Last Medication Dose Route Stop Time Status Admin Acetaminophen 650 MG Q4P PRN 04/01 1815 AC 04/02 PO 1415 Albumin Human 25 GM Q8 03/24 2200 AC 04/12 IV 0608 Benzocaine/Menthol 1 MYLES Q2P PRN 04/03 1100 AC PO Bisacodyl 10 MG ONCE PRN 04/09 1330 AC GA Collagenase 1 BENEDICTO BID 04/02 1100 AC 04/11 [facility] 2136 Desvenlafaxine 50 MG MoWeFr@1300 03/30 1300 DC 04/11 Succinate PO 1149 Dronabinol 2.5 MG DAILY 04/09 1400 AC 04/11 PO 1151 Epoetin Bryan 3,000 UNIT 03/30 1000 AC 04/08 IV 1317 Glycerin 2 SPRAY Q2P PRN 04/01 2045 AC PO Heparin Sodium 5,000 UNIT Q8 03/28 1444 AC 04/12 (Porcine) SC 0608 Morphine Sulfate 2 MG Q4P PRN 04/05 1730 AC 04/11 IV 1956 Multivitamins 1 TAB 1700 03/25 1700 AC 04/11 PO 1624 Omeprazole 40 MG DAILY AC 03/25 1648 AC 04/12 PO 0608 Ondansetron HCl 4 MG Q6P PRN 04/12 0845 UNVr IV Polyethylene Glycol 17 GM DAILY PRN 04/03 1100 AC 04/06 PO 1850 Senna/Docusate Sodium 1 TAB BID PRN 04/06 1500 AC 04/09 PO 1625 Sevelamer Carbonate 1,600 MG WITH MEALS 03/24 1700 AC 04/11 PO 1624 Verapamil HCl 180 MG DAILY 03/25 0745 AC 04/11 PO 1149 Last 24 Hrs of Lab/[place] Results Last 24 Hrs of Labs/Mics: Laboratory Tests 04/12/17 0620: Anion Gap 25 H, Estimated GFR 20 L, BUN/Creatinine Ratio 13.5, CBC w Diff NO MAN DIFF REQ, RBC 3.47 L, MCV 76.8 L, MCH 24.1 L, MCHC 31.3 L, RDW 23.1 H, MPV 12.1 H, Gran % 82.6 H, Lymphocytes % 5.7 L, Monocytes % 11.0 H, Eosinophils % 0.5, Basophils % 0.2, Absolute Granulocytes 9.0 H, Absolute Lymphocytes 0.6 L, Absolute Monocytes 1.2 H, Absolute Eosinophils 0.1, Absolute Basophils 0 Assessment/Plan Assessment: Mr. Tijerina is a 66 yo m with a PMH of PKD, Polycystic liver disease, portal HTN , HTN, HLD, umbilical hernia repair, colon ademona, GERD who presented to the ED with NVD with progressively worsened abdominal distention from ascitic fluid. Patient was initially managed in ICU and with stabilization was transferred to telemetry floor for management of following conditions. Hepatic cirrhosis Ascites secondary to PHT: * s/p removal of ascitic fluid several times * Ascitic fluid studies show decreasing white count with no evidence of infection * MRCP does not reveal any acute abdominal process. * He does have rising LFTs which could be secondary to biliary compression by the cysts * Detoriation of liver function today, one possibility could be related adrienne- venlafaxin, will hold temprorilary * Per nephrology, he will require weekly paracentesis. * Will follow up ascitic fluid culture - pending. * will hold IV albumin 25gm q8 today, considering Albumin of 4.8, prealb 8 which is low * Neupogen and Renvela Hypotension: - currently resolved. * His blood pressure had been running on the low side past couple of days. * He received Levophed for a few hours peripherally on 04/01 for a couple of hours. * Currently refuses for a central line placement for administeration of pressors. * Will give bolus if necessary to maintain his blood pressure. Nonsustained SVT (currently resolved) Patient experienced 2 episodes of SVT with HR up to 180s. He was asymptomatic during both events. During the first event he was administered IV Metoprolol 5 mg. The second event spontaneously resolved and did not require medical management * Cardiology recommendations appreciated * Will administer Adenosine for any acute events * Patient to continue on tele monitoring for now. * His beta rose will have to be restarted once his blood pressure is more stable. Catheter-associated Peritonitis - resolved Patient had an indwelling pleural catheter placed in July 2016 for pleural effusion that migrated into the abdominal cavity. Considering that the patient's catheter was never removed it could have been a possible source of infection. He had another catheter placed in the R lung that was eventually removed. CT abdomen/pelvis on admission demonstrated the resolution of his R-side pleural effusion. He gets 1L of ascitic fluid drained from the migrated Pleurx catheter on MWF. Prior to coming to the hospital it was last drained by his visiting nurse. * Had a diagnostic and therapeutic paracentesis again 04/07 * Ceftazidime has been discontinued Depression: * Patient requested for a psych consult as he feels depressed. * Psych has suggested starting him on DesVenlafaxine 50mg daily. * We will hold desvenlafaxine today and monitor LFT * Renal and GI have approved the use of the medication from their standpoint. However, recommend monitoring of LFTs while on the drug. * His LFTs have been uptrending. Will need to discuss about the possibility of continuing the medication. History of PKD, Polycystic liver disease: Patient reported he had an appt at [facility] in which he was told he wouldn't receive a transplant until the resolution of his ascitic fluid. CT abd/pel demonstrated numerous cysts effectively replacing the normal hepatic and bilateral renal parenchyma * follow up hepatorenal transplant Diet: Regular Diet with 2g K restriction. DVT Prophylaxis: ALPS Code Status: Full Problem List: 1. Ascites 2. Renal insufficiency 3. Polycystic liver disease 4. Polycystic kidney disease Pain Ratin Pain Location: abdominal discomfrot Pain Goal: Pain 4 or less Pain Plan: Continue current plan Tomorrow's Labs & Rationales: CBC BEP RuedaCyrus dotsonindy 04/12/17 1444: Attending MD Review Statement Attending Statement Attending MD Statement: examined this patient, discuss w/resident/PA/DOOR TECHNICIAN, agreed w/resident/PA/DOOR TECHNICIAN, reviewed EMR data (avail), discussed with nursing, discussed with case mgmt Attending Assessment/Plan: spoke with Dr Hearn, Pt not a candidate for transplant at present. Will d/w Dr Conley nephrology about arranging the outpatient dialysis . Will arrange for weekly paracentesis with IR. case management to work on finding LING for the pt. Will d/w nutrition to see what things we can do to improve his nutritional status. Will dc iv albumin for now. d/w pt the care plan.
[2017-04-12 08:01] LABS: ABSOLUTE BASOPHIL COUNT 0 /CUMM (0.0-0.2); ABSOLUTE EOSINOPHIL COUNT 0.1 /CUMM (0.0-0.7); ABSOLUTE LYMPH COUNT 0.6 /CUMM (1.2-3.4); ABSOLUTE MONOCYTE COUNT 1.2 /CUMM (0.10-0.60); BASOPHIL % 0.2 % (0.0-2.0); EOSINOPHIL % 0.5 % (0-5); GRANULOCYTE % 82.6 % (42.2-75.2); HEMATOCRIT 26.6 % (42-52); MEAN CORPUSCULAR HGB 24.1 PG (27.0-31.0); MEAN CORPUSCULAR HGB CONC 31.3 G/DL (33.0-37.0); MEAN CORPUSCULAR VOLUME 76.8 FL (80.0-94.0); MEAN PLATELET VOLUME 12.1 FL (7.4-10.4); PLATELET COUNT 192 /CUMM (130-400); RBC DISTRIBUTION WIDTH 23.1 % (11.5-14.5); RED BLOOD CELL CT 3.47 /CUMM (4.70-6.10); WHITE BLOOD CELL COUNT 10.9 /CUMM (4.8-10.8)
[2017-04-12 14:00] VITALS: BP 100/62
--- NOTE | 2017-04-12 15:56 | RADIOLOGY REPORT ---
EXAMINATION: XR PORTABLE CHEST CLINICAL INFORMATION: Stabbing chest pain 9 out of 10 for 2 hours. COMPARISON: Chest done on 04/08/2017. TECHNIQUE: Portable frontal view of the chest was obtained. FINDINGS: Low lung volume is present with evidence of bilateral small pleural effusions. Diffuse hazy opacities noted within the visualized upper abdomen, consistent with likely ascites. There is no radiographic evidence of any pneumothorax identified. There is a right-sided central line present, appeared in good position. Overall, no significant change. IMPRESSION: No acute cardiopulmonary disease, appears stable since 04/08/2017.
[2017-04-12] MEDS ORDERED: RENVELA800 M1 PO (16:18)
--- NOTE | 2017-04-12 17:22 | PN- Cardiology ---
Subjective Subjective: The patient again complained of left-sided chest discomfort. No shortness of breath. No palpitations. No lightheadedness or dizziness. No nausea or vomiting. No recent arrhythmias on telemetry. Objective Vital Signs and I&Os Vital Signs Date Time Temp Pulse Resp B/P B/P Pulse O2 O2 Flow FiO2 Mean Ox Delivery Rate 04/12 1557 Room Air Room Air 04/12 1545 Room Air Room Air 04/12 1400 97.8 80 20 100/62 98 04/12 1223 Room Air Room Air 04/12 0859 88 110/68 04/12 0633 97.9 82 12 108/74 92 Room Air 04/11 2246 98.3 89 22 108/72 89 04/11 2152 Room Air Intake & Output 04/12 1600 04/12 0800 04/12 0000 04/11 1600 04/11 0800 04/11 0000 Intake Total 400 406 872 1224 210 170 Output Total 350 50 200 Balance 50 051 388 8608 210 170 Intake, 1000 Dialysate Intake, IV 60 60 100 110 120 Intake, Oral 400 240 100 300 100 50 Number 1 1 1 Bowel Movements Output, Urine 350 50 200 Patient 134 lb 134 lb Weight Physical Exam: Gen: NAD HEENT: normal Lungs: clear to auscultation, normal resp. effort Heart: RRR, S1, S2, 2/6 systolic murmur Abdomen: Soft, nontender, no masses Extremities: No edema Neuro: Alert and oriented x 3, cranial nerves intact Current Medications: Current Medications Sig/Lola Start time Last Medication Dose Route Stop Time Status Admin Acetaminophen 650 MG Q4P PRN 04/01 1815 AC 04/02 PO 1415 Albumin Human 25 GM Q12 04/12 1000 DC IV Albumin Human 25 GM Q8 03/24 2200 DC 04/12 IV 0608 Benzocaine/Menthol 1 MYLES Q2P PRN 04/03 1100 AC PO Bisacodyl 10 MG ONCE PRN 04/09 1330 AC IL Collagenase 1 BENEDICTO BID 04/02 1100 AC 04/12 TOP 0900 Dronabinol 2.5 MG DAILY 04/09 1400 AC 04/12 PO 0902 Epoetin Bryan 3,000 UNIT 03/30 1000 AC 04/08 IV 1317 Glycerin 2 SPRAY Q2P PRN 04/01 2045 AC PO Heparin Sodium 5,000 UNIT Q8 03/28 1444 AC 04/12 (Porcine) SC 1232 Morphine Sulfate 2 MG Q4P PRN 04/05 1730 AC 04/12 IV 1213 Multivitamins 1 TAB 1700 03/25 1700 AC 04/12 PO 1614 Omeprazole 40 MG DAILY AC 03/25 1648 AC 04/12 PO 0608 Ondansetron HCl 4 MG Q6P PRN 04/12 0845 AC IV Polyethylene Glycol 17 GM DAILY PRN 04/03 1100 AC 04/06 PO 1850 Senna/Docusate Sodium 1 TAB BID PRN 04/06 1500 AC 04/09 PO 1625 Sevelamer Carbonate 1,600 MG WITH MEALS 03/24 1700 AC 04/12 PO 1614 Verapamil HCl 180 MG DAILY 03/25 0745 AC 04/12 PO 0859 Results Last 48 Hrs of Labs/Mics: Laboratory Tests 04/12/17 1444: Troponin I < 0.01 04/12/17 0620: Anion Gap 25 H, Estimated GFR 20 L, BUN/Creatinine Ratio 13.5, CBC w Diff NO MAN DIFF REQ, RBC 3.47 L, MCV 76.8 L, MCH 24.1 L, MCHC 31.3 L, RDW 23.1 H, MPV 12.1 H, Gran % 82.6 H, Lymphocytes % 5.7 L, Monocytes % 11.0 H, Eosinophils % 0.5, Basophils % 0.2, Absolute Granulocytes 9.0 H, Absolute Lymphocytes 0.6 L, Absolute Monocytes 1.2 H, Absolute Eosinophils 0.1, Absolute Basophils 0 04/11/17 0734: Anion Gap 25 H, Estimated GFR 13 L, BUN/Creatinine Ratio 15.1, Glucose 87, Calcium 10.0, Total Bilirubin 4.3 H, Direct Bilirubin 3.4 H, AST 22, ALT 11 L , Alkaline Phosphatase 144 H, Total Protein 7.6, Albumin 4.7, Prealbumin 8.0 L , CBC w Diff NO MAN DIFF REQ, RBC 3.20 L, MCV 75.9 L, MCH 24.4 L, MCHC 32.2 L, RDW 22.1 H, MPV 10.0, Gran % 81.1 H, Lymphocytes % 7.3 L, Monocytes % 10.3 H, Eosinophils % 1.0, Basophils % 0.3, Absolute Granulocytes 8.2 H, Absolute Lymphocytes 0.7 L, Absolute Monocytes 1.0 H, Absolute Eosinophils 0.1, Absolute Basophils 0 04/11/17 0720: Anion Gap 27 H, Estimated GFR 13 L, BUN/Creatinine Ratio 15.0, CBC w Diff MAN DIFF ORDERED, RBC 3.33 L, MCV 76.2 L, MCH 24.1 L, MCHC 31.6 L, RDW 22.8 H, MPV 12.1 H, Gran % 81.3 H, Lymphocytes % 7.2 L, Monocytes % 10.3 H, Eosinophils % 1.1, Basophils % 0.1, Absolute Granulocytes 7.3 H, Absolute Lymphocytes 0.6 L, Absolute Monocytes 0.9 H, Absolute Eosinophils 0.1, Absolute Basophils 0, Hypochromic-Microcytic 3+, Poikilocytosis 2+, Anisocytosis 3+, Microcytic Cells 3+ Recent Imaging Studies: Chest x-ray: Negative EKG: Normal sinus rhythm. No acute ischemic changes Assessment/Plan Assessment/Plan Assessment: 1. Nonsustained superventricular tachycardia, resolved 2. Ascites with SBP vs Catheter-associated Peritonitis 3. Acute on chronic renal insufficiency with polycystic kidneys 4. Polycystic liver disease 5. Hyperkalemia 6. Microcytic anemia 7. intermittent chest discomfort Recommendations: * Repeat EKG for chest pain shows no new ischemic changes. * Repeat troponin is negative * Continue telemetry monitoring * Continue cardiac medications Continue telemetry? Yes
[2017-04-12 22:00] VITALS: BP 80/00
--- NOTE | 2017-04-12 22:28 | Event Note ---
Event Note Event Note: S: Approximately 2215 was alerted by nurse that the patient's BP was 80 over Doppler. B: Since admission patient has had numerous episodes of hypotension and responded well to fluid boluses. AR: Patient was seen and assessed at bedside. He was AO3, denied any lightheadedness, dizziness, nausea, vomiting, chest pain, shortness of breath, abdominal pain, fever, chills. On exam patient appeared cachectic and in no apparent distress. Cardiac and pulmonary were within normal limits. Abdomen was mildly distended but nontender. Plan to give one 500 mL NS bolus and repeat pressure. Plan discussed with resident Dr. Calvo. BP improved to 92/60
[2017-04-13 00:55] VITALS: BP 92/50
[2017-04-13 06:38] VITALS: BP 102/64
--- NOTE | 2017-04-13 08:01 | PN- Housestaff ---
Escobar Ribera MD,[facility] 04/13/17 0801: Subjective Follow-up For: Ascites secondary to Portal Hypertension Hypotension, currently partially resolved Nonsustained SVT, currently resolved Catheter-associated Peritonitis - resolved Depression History of PKD, Polycystic liver disease ESRD on dialysis Tele-Events Since Last Visit: SR 75-83 Subjective: Patient visited today, ill looking cachectic gentelaman, was lying in bed comfortably in no acute distress, was alert and oriented. yesterday her chest pain, cardiology recommended to continue telemetry, labs EKG and CXR no change to baseline, no event overnight no chest pain today. Plan to go for dialysis today. WBC increased to 19 (later 15 today). we will request ID re-evalaution. No fever or chills, no shortness of breathing, no chest pain, no other events. Dr Link informed that telemetry can be discontinued and patient can be transferred to general medicine floor. Review of Systems Constitutional: Reports: see HPI. Objective Last 24 Hrs of Vital Signs/I&O Vital Signs Date Time Temp Pulse Resp B/P B/P Pulse O2 O2 Flow FiO2 Mean Ox Delivery Rate 04/13 0638 97.8 92 24 102/64 89 Room Air 04/13 0055 75 92/50 04/12 2219 98.3 71 18 94 Room Air 04/12 2200 Room Air 04/12 2200 76 80/00 04/12 1557 Room Air Room Air 04/12 1545 Room Air Room Air 04/12 1400 97.8 80 20 100/62 98 04/12 1223 Room Air Room Air Intake & Output 04/13 1600 04/13 0800 04/13 0000 Intake Total 100 100 Output Total 0 Balance 100 100 Intake, Oral 100 100 Number 1 0 Bowel Movements Output, Urine 0 Patient 138 lb Weight Weight Standing Scale Measurement Method Physical Exam General Appearance: Alert, Oriented X3, Cooperative, No Acute Distress Skin: skin ulcer over coccygeal area Skin Temp/Moisture Exam: Warm/Dry Sepsis Skin Exam (color): Normal for Ethnicity HEENT: Atraumatic, EOMI, Mucous Membr. moist/pink Cardiovascular: Regular Rate, Normal S1, Normal S2 Lungs: Clear to Auscultation, Normal Air Movement Abdomen: distanded, no tenderness Neurological: Normal Speech Extremities: No Edema Current Medications: Current Medications Sig/Lola Start time Last Medication Dose Route Stop Time Status Admin Acetaminophen 650 MG Q4P PRN 04/01 1815 AC 04/02 PO 1415 Albumin Human 25 GM Q12 04/12 1000 DC IV Benzocaine/Menthol 1 MYLES Q2P PRN 04/03 1100 AC PO Bisacodyl 10 MG ONCE PRN 04/09 1330 AC FL Collagenase 1 BENEDICTO BID 04/02 1100 AC 04/12 TOP 2145 Dronabinol 2.5 MG DAILY 04/09 1400 AC 04/12 PO 0902 Epoetin Bryan 3,000 UNIT 03/30 1000 AC 04/08 IV 1317 Glycerin 2 SPRAY Q2P PRN 04/01 2045 AC PO Heparin Sodium 5,000 UNIT Q8 03/28 1444 AC 04/13 (Porcine) SC 0620 Morphine Sulfate 2 MG Q4P PRN 04/05 1730 AC 04/13 IV 0633 Multivitamins 1 TAB 1700 03/25 1700 AC 04/12 PO 1614 Omeprazole 40 MG DAILY AC 03/25 1648 AC 04/12 PO 0608 Ondansetron HCl 4 MG Q6P PRN 04/12 0845 AC 04/13 IV 0631 Polyethylene Glycol 17 GM DAILY PRN 04/03 1100 AC 04/06 PO 1850 Senna/Docusate Sodium 1 TAB BID PRN 04/06 1500 AC 04/09 PO 1625 Sevelamer Carbonate 1,600 MG WITH MEALS 03/24 1700 AC 04/12 PO 1614 Sodium Chloride 500 ML BOLUS ONE 04/12 2230 DC 04/12 IV 04/12 2329 2300 Verapamil HCl 180 MG DAILY 03/25 0745 AC 04/12 PO 0859 Last 24 Hrs of Lab/Clarke Results Last 24 Hrs of Labs/Mics: Laboratory Tests 04/13/17 0750: Anion Gap 24 H, Glucose 93, Phosphorus 2.8, Magnesium 1.8, Albumin 4.2, CBC w Diff NO MAN DIFF REQ, RBC 3.43 L, MCV 75.1 L, MCH 23.3 L, MCHC 31.1 L, RDW 22.1 H, MPV 12.4 H, Gran % 88.3 H, Lymphocytes % 3.6 L, Monocytes % 7.4, Eosinophils % 0.7, Basophils % 0, Absolute Granulocytes 13.5 H, Absolute Lymphocytes 0.6 L, Absolute Monocytes 1.1 H, Absolute Eosinophils 0.1, Absolute Basophils 0 04/13/17 0636: Anion Gap 28 H, Estimated GFR 15 L, BUN/Creatinine Ratio 14.1, Total Bilirubin 5.1 H, Direct Bilirubin 3.9 H, AST 23, ALT 13 L, Alkaline Phosphatase 196 H, Total Protein 7.7, Albumin 4.6, CBC w Diff NO MAN DIFF REQ, RBC 3.79 L, MCV 75.8 L, MCH 23.9 L, MCHC 31.5 L, RDW 22.6 H, MPV 12.1 H, Gran % 80.8 H, Lymphocytes % 10.1 L, Monocytes % 8.8, Eosinophils % 0.3, Basophils % 0, Absolute Granulocytes 15.4 H, Absolute Lymphocytes 1.9, Absolute Monocytes 1.7 H, Absolute Eosinophils 0.1, Absolute Basophils 0 04/12/17 1444: Troponin I < 0.01 Assessment/Plan Assessment: Mr. Tijerina is a 66 yo m with a PMH of PKD, Polycystic liver disease, portal HTN , HTN, HLD, umbilical hernia repair, colon ademona, GERD who presented to the ED with NVD with progressively worsened abdominal distention from ascitic fluid. Patient was initially managed in ICU and with stabilization was transferred to telemetry floor for management of following conditions. Hepatic cirrhosis Ascites secondary to PHT: * s/p removal of ascitic fluid several times * Ascitic fluid studies show decreasing white count with no evidence of infection * MRCP does not reveal any acute abdominal process. * He does have rising LFTs which could be secondary to biliary compression by the cysts * Detoriation of liver function today, one possibility could be related adrienne- venlafaxin, will hold temprorilary * Per nephrology, he will require weekly paracentesis. * Will follow up ascitic fluid culture - pending. * will hold IV albumin 25gm q8 today, considering Albumin of 4.8, prealb 8 which is low * Neupogen and Renvela * IR paracenthesis today, Albumon 8gr/1lit infusion, follow body fluid analysis Hypotension: - currently resolved. * His blood pressure had been running on the low side past couple of days. * He received Levophed for a few hours peripherally on 04/01 for a couple of hours. * Currently refuses for a central line placement for administeration of pressors. * Will give bolus if necessary to maintain his blood pressure. Nonsustained SVT (currently resolved) Patient experienced 2 episodes of SVT with HR up to 180s. He was asymptomatic during both events. During the first event he was administered IV Metoprolol 5 mg. The second event spontaneously resolved and did not require medical management * Cardiology recommendations appreciated * Will administer Adenosine for any acute events * Patient to continue on tele monitoring for now. * His beta rose will have to be restarted once his blood pressure is more stable. Catheter-associated Peritonitis - resolved Patient had an indwelling pleural catheter placed in July 2016 for pleural effusion that migrated into the abdominal cavity. Considering that the patient's catheter was never removed it could have been a possible source of infection. He had another catheter placed in the R lung that was eventually removed. CT abdomen/pelvis on admission demonstrated the resolution of his R-side pleural effusion. He gets 1L of ascitic fluid drained from the migrated Pleurx catheter on MWF. Prior to coming to the hospital it was last drained by his visiting nurse. * Had a diagnostic and therapeutic paracentesis again 04/07 * Ceftazidime has been discontinued Depression: * Patient requested for a psych consult as he feels depressed. * Psych has suggested starting him on DesVenlafaxine 50mg daily. * We will hold desvenlafaxine today and monitor LFT * Renal and GI have approved the use of the medication from their standpoint. However, recommend monitoring of LFTs while on the drug. * His LFTs have been uptrending. Will need to discuss about the possibility of continuing the medication. History of PKD, Polycystic liver disease: Patient reported he had an appt at [facility] in which he was told he wouldn't receive a transplant until the resolution of his ascitic fluid. CT abd/pel demonstrated numerous cysts effectively replacing the normal hepatic and bilateral renal parenchyma * follow up hepatorenal transplant Diet: Regular Diet with 2g K restriction. DVT Prophylaxis: ALPS Code Status: Full Problem List: 1. Ascites 2. Polycystic kidney disease 3. Polycystic liver disease 4. Renal insufficiency Pain Ratin Pain Location: none Pain Goal: Pain 4 or less Pain Plan: Continue current plan Tomorrow's Labs & Rationales: CBC BEP Lucero Rueda 04/13/17 1339: Attending MD Review Statement Attending Statement Attending MD Statement: examined this patient, discuss w/resident/PA/TECHNICAL LEAD, agreed w/resident/PA/TECHNICAL LEAD, reviewed EMR data (avail), discussed with nursing, discussed with case mgmt Attending Assessment/Plan: pt seen and examined at bedside . d/w pt the placement of NG tube for nutrition and he is agreeable to it but does not want it today. Will try putting a NG tube tomorrow and start him on tube feeds and see how he does. Leucocytosis- pt afebrile. Dialysis cath site looks ok. No diarrhea. pt feels his abdominal pain is better. will get IR to do the diagnostic and therapeutic tap to look at the wbc count in ascitic fluid. will closely monitor for deterioration. will d/w ID the leucocytosis.
[2017-04-13 08:02] LABS: ABSOLUTE BASOPHIL COUNT 0 /CUMM (0.0-0.2); ABSOLUTE EOSINOPHIL COUNT 0.1 /CUMM (0.0-0.7); ABSOLUTE GRANULOCYTE CT 15.4 /CUMM (1.4-6.5); ABSOLUTE LYMPH COUNT 1.9 /CUMM (1.2-3.4); ABSOLUTE MONOCYTE COUNT 1.7 /CUMM (0.10-0.60); BASOPHIL % 0 % (0.0-2.0); EOSINOPHIL % 0.3 % (0-5); HEMATOCRIT 28.7 % (42-52); MEAN CORPUSCULAR HGB 23.9 PG (27.0-31.0); MEAN CORPUSCULAR HGB CONC 31.5 G/DL (33.0-37.0); MEAN CORPUSCULAR VOLUME 75.8 FL (80.0-94.0); MEAN PLATELET VOLUME 12.1 FL (7.4-10.4); RBC DISTRIBUTION WIDTH 22.6 % (11.5-14.5); RED BLOOD CELL CT 3.79 /CUMM (4.70-6.10)
[2017-04-13 08:36] LABS: GRANULOCYTE % 80.8 % (42.2-75.2); PLATELET COUNT 247 /CUMM (130-400)
--- NOTE | 2017-04-13 08:56 | PN- Cardiology ---
Subjective Subjective: He was seen and Examined today. Patient alert, awake, oriented. No shortness of breath. No palpitations. No lightheadedness or dizziness. No nausea or vomiting. No recent arrhythmias on telemetry. He underwent hemodialysis session today. his BP 92 to 102 SBP. Objective Vital Signs and I&Os Vital Signs Date Time Temp Pulse Resp B/P B/P Pulse O2 O2 Flow FiO2 Mean Ox Delivery Rate 04/13 0638 97.8 92 24 102/64 89 Room Air 04/13 0055 75 92/50 04/12 2219 98.3 71 18 94 Room Air 04/12 2200 Room Air 04/12 2200 76 80/00 04/12 1557 Room Air Room Air 04/12 1545 Room Air Room Air 04/12 1400 97.8 80 20 100/62 98 Intake & Output 04/13 1600 04/13 0800 04/13 0000 04/12 1600 04/12 0800 04/12 0000 Intake Total 100 100 400 300 160 Output Total 0 350 50 Balance 100 100 50 300 110 Intake, IV 60 60 Intake, Oral 100 100 400 240 100 Number 1 0 1 1 Bowel Movements Output, Urine 0 350 50 Patient 138 lb 134 lb Weight Weight Standing Scale Measurement Method Physical Exam: Gen: NAD HEENT: normal Lungs: clear to auscultation, normal resp. effort Heart: RRR, S1, S2, 2/6 systolic murmur Abdomen: Soft, nontender, no masses Extremities: No edema Neuro: Alert and oriented x 3, cranial nerves intact Current Medications: Current Medications Sig/Lola Start time Last Medication Dose Route Stop Time Status Admin Acetaminophen 650 MG Q4P PRN 04/01 1815 AC 04/02 PO 1415 Albumin Human 25 GM Q12 04/12 1000 DC IV Benzocaine/Menthol 1 MYLES Q2P PRN 04/03 1100 AC PO Bisacodyl 10 MG ONCE PRN 04/09 1330 AC NM Collagenase 1 BNEEDICTO BID 04/02 1100 AC 04/12 TOP 2145 Dronabinol 2.5 MG DAILY 04/09 1400 AC 04/12 PO 0902 Epoetin Bryan 3,000 UNIT 03/30 1000 AC 04/08 IV 1317 Glycerin 2 SPRAY Q2P PRN 04/01 2045 AC PO Heparin Sodium 5,000 UNIT Q8 03/28 1444 AC 04/13 (Porcine) SC 0620 Morphine Sulfate 2 MG Q4P PRN 04/05 1730 AC 04/13 IV 0633 Multivitamins 1 TAB 1700 03/25 1700 AC 04/12 PO 1614 Omeprazole 40 MG DAILY AC 03/25 1648 AC 04/12 PO 0608 Ondansetron HCl 4 MG Q6P PRN 04/12 0845 AC 04/13 IV 0631 Polyethylene Glycol 17 GM DAILY PRN 04/03 1100 AC 04/06 PO 1850 Senna/Docusate Sodium 1 TAB BID PRN 04/06 1500 AC 04/09 PO 1625 Sevelamer Carbonate 1,600 MG WITH MEALS 03/24 1700 AC 04/12 PO 1614 Sodium Chloride 500 ML BOLUS ONE 04/12 2230 DC 04/12 IV 04/12 2329 2300 Verapamil HCl 180 MG DAILY 03/25 0745 AC 04/12 PO 0859 Results Last 48 Hrs of Labs/Mics: Laboratory Tests 04/13/17 1125: BUN Pending 04/13/17 0750: Anion Gap 24 H, Glucose 93, Phosphorus 2.8, Magnesium 1.8, Albumin 4.2, CBC w Diff NO MAN DIFF REQ, RBC 3.43 L, MCV 75.1 L, MCH 23.3 L, MCHC 31.1 L, RDW 22.1 H, MPV 12.4 H, Gran % 88.3 H, Lymphocytes % 3.6 L, Monocytes % 7.4, Eosinophils % 0.7, Basophils % 0, Absolute Granulocytes 13.5 H, Absolute Lymphocytes 0.6 L, Absolute Monocytes 1.1 H, Absolute Eosinophils 0.1, Absolute Basophils 0 04/13/17 0636: Anion Gap 28 H, Estimated GFR 15 L, BUN/Creatinine Ratio 14.1, Total Bilirubin 5.1 H, Direct Bilirubin 3.9 H, AST 23, ALT 13 L, Alkaline Phosphatase 196 H, Total Protein 7.7, Albumin 4.6, CBC w Diff NO MAN DIFF REQ, RBC 3.79 L, MCV 75.8 L, MCH 23.9 L, MCHC 31.5 L, RDW 22.6 H, MPV 12.1 H, Gran % 80.8 H, Lymphocytes % 10.1 L, Monocytes % 8.8, Eosinophils % 0.3, Basophils % 0, Absolute Granulocytes 15.4 H, Absolute Lymphocytes 1.9, Absolute Monocytes 1.7 H, Absolute Eosinophils 0.1, Absolute Basophils 0 04/12/17 1444: Troponin I < 0.01 04/12/17 0620: Anion Gap 25 H, Estimated GFR 20 L, BUN/Creatinine Ratio 13.5, CBC w Diff NO MAN DIFF REQ, RBC 3.47 L, MCV 76.8 L, MCH 24.1 L, MCHC 31.3 L, RDW 23.1 H, MPV 12.1 H, Gran % 82.6 H, Lymphocytes % 5.7 L, Monocytes % 11.0 H, Eosinophils % 0.5, Basophils % 0.2, Absolute Granulocytes 9.0 H, Absolute Lymphocytes 0.6 L, Absolute Monocytes 1.2 H, Absolute Eosinophils 0.1, Absolute Basophils 0 Assessment/Plan Assessment/Plan Assessment: 1. Nonsustained superventricular tachycardia, resolved(most likely metabolic) 2. Ascites with SBP vs Catheter-associated Peritonitis 3. Acute on chronic renal insufficiency with polycystic kidneys 4. Polycystic liver disease 5. Hyperkalemia 6. Microcytic anemia 7. intermittent chest discomfort Recommendations: * We Will follow and if his BP improve we will readdress restarting him on low dose beta rose. * Continue telemetry monitoring * Continue cardiac medications Continue telemetry? Yes
--- NOTE | 2017-04-13 09:11 | Event Note ---
Event Note Event Note: I have been following the patient from [facility] after signing off 03/28/17, and have had multiple conversations with Dr. Hearn, Dr. Morocho, & Dr. Rueda. There were questions about his TBil & about the patient's nutritional status, as he only had fair po intake. 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 TJ liver bx could not be performed by [facility] IR, as his liver parenchyma was replaced by cysts. The bump in his TBil correlated with rx Pristiq for depression, & I advised the medical team to hold this. A limited MRCP was unrevealing. Regarding the latter issue, although his serum albumin was normal (post SPA), his prealbumin was low. His peritonitis had resolved. He was off antibiotics. His pigtail catheter in the right pleural space was pulled. He still had issues with ascites. He remained dialysis dependent. Dr. Hearn spoke with Dr. Valdez, of the [facility] renal transplant team. At present, based on the patient's current condition, he was felt not to be a candidate for kidney/liver transplant. The [facility] was brought up as an option for this, once the patient's parameters hopefully stabilized. Dr. Hearn told me that for similar reasons, [facility] currently was no an option, either. The patient had been put on Marinol and Zofran for nausea. The patient's severe PCKD makes him an impossible candidate for PEG placement by GI. Hopefully, his po intake will improve. Another probable unlikely option would be placement of a feeding tube by IR under sono/CT guidance, but the patient's PCKD would make this very difficult due to his altered anatomy, & would defer to IR for this, if he cannot sustain himself. Advise nutritional consult follow-up & calorie count. *If the patient cannot sustain himself, consideration for temporary NGT feeds, prior to the above. Finally, if all options fail, as peritonitis has resolved, consider open surgical placement of jejunal feeding tube, after his ascites is tapped as dry as possible (with simultaneous IV SPA 25g/every 3L removed, to maintain his BP). With portal HTN & elevated LFTs, would prefer to avoid parenteral nutrition with TPN. Ideally, the patient needs liver/kidney transplant after he hopefully stabilizes at rehab. He remains a full code. The above was discussed with the patient at the bedside in the [facility] inpatient dialysis unit, in great detail 04/13/17.
[2017-04-13 09:43] LABS: ABSOLUTE BASOPHIL COUNT 0 /CUMM (0.0-0.2); ABSOLUTE EOSINOPHIL COUNT 0.1 /CUMM (0.0-0.7); ABSOLUTE GRANULOCYTE CT 13.5 /CUMM (1.4-6.5); ABSOLUTE LYMPH COUNT 0.6 /CUMM (1.2-3.4); ABSOLUTE MONOCYTE COUNT 1.1 /CUMM (0.10-0.60); BASOPHIL % 0 % (0.0-2.0); EOSINOPHIL % 0.7 % (0-5); HEMATOCRIT 25.8 % (42-52); MEAN CORPUSCULAR HGB 23.3 PG (27.0-31.0); MEAN CORPUSCULAR HGB CONC 31.1 G/DL (33.0-37.0); MEAN CORPUSCULAR VOLUME 75.1 FL (80.0-94.0); MEAN PLATELET VOLUME 12.4 FL (7.4-10.4); PLATELET COUNT 216 /CUMM (130-400); RBC DISTRIBUTION WIDTH 22.1 % (11.5-14.5); RED BLOOD CELL CT 3.43 /CUMM (4.70-6.10); WHITE BLOOD CELL COUNT 15.3 /CUMM (4.8-10.8)
[2017-04-13 10:18] LABS: GRANULOCYTE % 88.3 % (42.2-75.2)
--- NOTE | 2017-04-13 13:36 | PN- Nephrology ---
Assessment/Plan Assessment: ESRD. polycystic kidney / liver disease. portal hypertension with ascites. Dialyzed this morning without problems. Next HD on Tuesday. Encourage po. Deejay Conley MD Suggestion: . Subjective Subjective: Pt comfortable. eating a bit now. Objective Vital Signs and I&Os M NAD 118/58 Lungs clear Cor RRR Abd soft pos ascites Ext tr edema Results Pertinent Lab Results: Laboratory Tests 04/13 04/13 1125 0750 Chemistry Sodium (137 - 145 mmol/L) 144 Potassium (3.5 - 5.1 mmol/L) 4.0 Chloride (98 - 107 mmol/L) 99 Carbon Dioxide (22 - 30 mmol/L) 22 Anion Gap (5 - 16) 24 H BUN (9 - 20 mg/dL) 14 Glucose (65 - 99 mg/dL) 93 Phosphorus (2.5 - 4.5 mg/dL) 2.8 Magnesium (1.6 - 2.3 mg/dL) 1.8 Albumin (3.5 - 5.0 g/dL) 4.2 Hematology CBC w Diff NO MAN DIFF REQ WBC (4.8 - 10.8 /CUMM) 15.3 H RBC (4.70 - 6.10 /CUMM) 3.43 L Hgb (14.0 - 18.0 G/DL) 8.0 L Hct (42 - 52 %) 25.8 L MCV (80.0 - 94.0 FL) 75.1 L MCH (27.0 - 31.0 PG) 23.3 L MCHC (33.0 - 37.0 G/DL) 31.1 L RDW (11.5 - 14.5 %) 22.1 H Plt Count (130 - 400 /CUMM) 216 MPV (7.4 - 10.4 FL) 12.4 H Gran % (42.2 - 75.2 %) 88.3 H Lymphocytes % (20.5 - 51.1 %) 3.6 L Monocytes % (1.7 - 9.3 %) 7.4 Eosinophils % (0 - 5 %) 0.7 Basophils % (0.0 - 2.0 %) 0 Absolute Granulocytes (1.4 - 6.5 /CUMM) 13.5 H Absolute Lymphocytes (1.2 - 3.4 /CUMM) 0.6 L Absolute Monocytes (0.10 - 0.60 /CUMM) 1.1 H Absolute Eosinophils (0.0 - 0.7 /CUMM) 0.1 Absolute Basophils (0.0 - 0.2 /CUMM) 0 04/13 04/12 0636 1444 Chemistry Sodium (137 - 145 mmol/L) 145 Potassium (3.5 - 5.1 mmol/L) 4.4 Chloride (98 - 107 mmol/L) 97 L Carbon Dioxide (22 - 30 mmol/L) 20 L Anion Gap (5 - 16) 28 H BUN (9 - 20 mg/dL) 58 H Creatinine (0.7 - 1.2 mg/dL) 4.1 H Estimated GFR (>60 ml/min) 15 L BUN/Creatinine Ratio (7 - 25 %) 14.1 Total Bilirubin (0.2 - 1.3 mg/dL) 5.1 H Direct Bilirubin (< 0.4 mg/dL) 3.9 H AST (17 - 59 U/L) 23 ALT (21 - 72 U/L) 13 L Alkaline Phosphatase (< 127 U/L) 196 H Troponin I (<0.11 ng/ml) < 0.01 Total Protein (6.3 - 8.2 g/dL) 7.7 Albumin (3.5 - 5.0 g/dL) 4.6 Hematology CBC w Diff NO MAN DIFF REQ WBC (4.8 - 10.8 /CUMM) 19.0 H RBC (4.70 - 6.10 /CUMM) 3.79 L Hgb (14.0 - 18.0 G/DL) 9.1 L Hct (42 - 52 %) 28.7 L MCV (80.0 - 94.0 FL) 75.8 L MCH (27.0 - 31.0 PG) 23.9 L MCHC (33.0 - 37.0 G/DL) 31.5 L RDW (11.5 - 14.5 %) 22.6 H Plt Count (130 - 400 /CUMM) 247 MPV (7.4 - 10.4 FL) 12.1 H Gran % (42.2 - 75.2 %) 80.8 H Lymphocytes % (20.5 - 51.1 %) 10.1 L Monocytes % (1.7 - 9.3 %) 8.8 Eosinophils % (0 - 5 %) 0.3 Basophils % (0.0 - 2.0 %) 0 Absolute Granulocytes (1.4 - 6.5 /CUMM) 15.4 H Absolute Lymphocytes (1.2 - 3.4 /CUMM) 1.9 Absolute Monocytes (0.10 - 0.60 /CUMM) 1.7 H Absolute Eosinophils (0.0 - 0.7 /CUMM) 0.1 Absolute Basophils (0.0 - 0.2 /CUMM) 0 04/12 04/11 0620 0734 Chemistry Sodium (137 - 145 mmol/L) 145 144 Potassium (3.5 - 5.1 mmol/L) 3.7 4.1 Chloride (98 - 107 mmol/L) 98 98 Carbon Dioxide (22 - 30 mmol/L) 23 21 L Anion Gap (5 - 16) 25 H 25 H BUN (9 - 20 mg/dL) 42 H 68 H Creatinine (0.7 - 1.2 mg/dL) 3.1 H 4.5 H Estimated GFR (>60 ml/min) 20 L 13 L BUN/Creatinine Ratio (7 - 25 %) 13.5 15.1 Glucose (65 - 99 mg/dL) 87 Calcium (8.4 - 10.2 mg/dL) 10.0 Total Bilirubin (0.2 - 1.3 mg/dL) 4.3 H Direct Bilirubin (< 0.4 mg/dL) 3.4 H AST (17 - 59 U/L) 22 ALT (21 - 72 U/L) 11 L Alkaline Phosphatase (< 127 U/L) 144 H Total Protein (6.3 - 8.2 g/dL) 7.6 Albumin (3.5 - 5.0 g/dL) 4.7 Prealbumin (17.6 - 36.0 mg/dL) 8.0 L Hematology CBC w Diff NO MAN DIFF REQ NO MAN DIFF REQ WBC (4.8 - 10.8 /CUMM) 10.9 H 10.1 RBC (4.70 - 6.10 /CUMM) 3.47 L 3.20 L Hgb (14.0 - 18.0 G/DL) 8.3 L 7.8 L Hct (42 - 52 %) 26.6 L 24.2 L MCV (80.0 - 94.0 FL) 76.8 L 75.9 L MCH (27.0 - 31.0 PG) 24.1 L 24.4 L MCHC (33.0 - 37.0 G/DL) 31.3 L 32.2 L RDW (11.5 - 14.5 %) 23.1 H 22.1 H Plt Count (130 - 400 /CUMM) 192 146 MPV (7.4 - 10.4 FL) 12.1 H 10.0 Gran % (42.2 - 75.2 %) 82.6 H 81.1 H Lymphocytes % (20.5 - 51.1 %) 5.7 L 7.3 L Monocytes % (1.7 - 9.3 %) 11.0 H 10.3 H Eosinophils % (0 - 5 %) 0.5 1.0 Basophils % (0.0 - 2.0 %) 0.2 0.3 Absolute Granulocytes (1.4 - 6.5 /CUMM) 9.0 H 8.2 H Absolute Lymphocytes (1.2 - 3.4 /CUMM) 0.6 L 0.7 L Absolute Monocytes (0.10 - 0.60 /CUMM) 1.2 H 1.0 H Absolute Eosinophils (0.0 - 0.7 /CUMM) 0.1 0.1 Absolute Basophils (0.0 - 0.2 /CUMM) 0 0 04/11 04/10 0720 1622 Chemistry Sodium (137 - 145 mmol/L) 145 Potassium (3.5 - 5.1 mmol/L) 4.0 Chloride (98 - 107 mmol/L) 99 Carbon Dioxide (22 - 30 mmol/L) 19 L Anion Gap (5 - 16) 27 H BUN (9 - 20 mg/dL) 66 H Creatinine (0.7 - 1.2 mg/dL) 4.4 H Estimated GFR (>60 ml/min) 13 L BUN/Creatinine Ratio (7 - 25 %) 15.0 Troponin I (<0.11 ng/ml) < 0.01 Hematology CBC w Diff MAN DIFF ORDERED WBC (4.8 - 10.8 /CUMM) 8.9 RBC (4.70 - 6.10 /CUMM) 3.33 L Hgb (14.0 - 18.0 G/DL) 8.0 L Hct (42 - 52 %) 25.4 L MCV (80.0 - 94.0 FL) 76.2 L MCH (27.0 - 31.0 PG) 24.1 L MCHC (33.0 - 37.0 G/DL) 31.6 L RDW (11.5 - 14.5 %) 22.8 H Plt Count (130 - 400 /CUMM) 168 MPV (7.4 - 10.4 FL) 12.1 H Gran % (42.2 - 75.2 %) 81.3 H Lymphocytes % (20.5 - 51.1 %) 7.2 L Monocytes % (1.7 - 9.3 %) 10.3 H Eosinophils % (0 - 5 %) 1.1 Basophils % (0.0 - 2.0 %) 0.1 Absolute Granulocytes (1.4 - 6.5 /CUMM) 7.3 H Absolute Lymphocytes (1.2 - 3.4 /CUMM) 0.6 L Absolute Monocytes (0.10 - 0.60 /CUMM) 0.9 H Absolute Eosinophils (0.0 - 0.7 /CUMM) 0.1 Absolute Basophils (0.0 - 0.2 /CUMM) 0 Hypochromic-Microcytic 3+ Poikilocytosis 2+ Anisocytosis 3+ Microcytic Cells 3+
[2017-04-13 15:02] VITALS: BP 100/62
--- NOTE | 2017-04-13 17:01 | ULTRASOUND REPORT ---
CLINICAL HISTORY: This patient is a 67 years old Male with ascites found on physical exam, who is referred to Interventional Radiology for ultrasound-guided paracentesis. As per request from the referring physicians, the drainage will be stopped if the patient's systolic blood pressure dips below 100 mmHg. PROCEDURE: Ultrasound-guided paracentesis. PHYSICIANS: Dr. Jami Parker (attending). MEDICATIONS: 10 mL of 1% lidocaine SQ. COMPLICATIONS: None ESTIMATED BLOOD LOSS: <5 mL SPECIMENS: Ascitic fluid IMPLANT: None. SITE MARKING: As part of the preprocedure verification policy, a site marking procedure was initiated. Due to the nature the procedure, the insertion site could not be predetermined thus invoking the policy of exemption to site laterality and marking. Insertion site marking was performed in the procedure room in conjunction with imaging confirmation. PROCEDURE NOTE: Informed consent was obtained from the patient prior to the procedure. During this process, the procedure and potential alternatives were explained along with the intended outcome and benefits. The risks of the procedure, including the possibility of an unsuccessful procedure, as well as the risk of not doing the procedure, were discussed. The patient was given the opportunity to ask questions regarding the procedure and appeared competent to make decisions. A signed consent form documenting this discussion was placed in the medical record. A time-out procedure was performed. Appropriate preprocedure medical history and imaging studies were reviewed. The patient was brought to the ultrasound room and placed in the supine position. A time-out procedure was performed. Ultrasound images of the abdomen were obtained to localize a large collection of ascites. Images were permanently saved to the record. An area of the right lower quadrant was prepped and draped in the standard sterile fashion. All elements of maximal sterile barrier technique followed including use of cap, mask, sterile gown, sterile gloves, a sterile full body drape and hand hygiene. Also followed skin preparation with 2% chlorhexidine for cutaneous antisepsis, and sterile ultrasound preparation with sterile gel and probe cover when applicable. 10 mL of 1% lidocaine was used to obtain local anesthesia of the skin and deeper tissues. A standard small-bore needle was introduced to sample fluid and demonstrated a safe access route. There was no evidence of traversing adjacent organs or vascular structures. A 6-Fr Grcl-S-Mxtnahuj closed needle/catheter system was utilized for access. 4.2 L of clear bright yellow fluid was aspirated before drainage ceased and the patient's pressure dipped below 100 mmHg. The catheter was removed and sterile dressing applied. The patient tolerated the procedure well without evidence of complications. FINDINGS: Large simple appearing abdominal ascites as detailed above. IMPRESSION: Successful ultrasound-guided therapeutic and diagnostic paracentesis. PLAN: The patient was stable after the procedure. The patient will be transferred to the floor.
[2017-04-13 20:42] VITALS: BP 90/52
[2017-04-14 06:19] VITALS: BP 84/58
--- NOTE | 2017-04-14 08:04 | Transfer of Care Summary ---
Hospital Course Course Hospital Course: Reason telemetry admission: Transferred from ICU after treating for sepsis, telemetry for chest pain and SVT HPI: Mr. Tijerina is a 66 yo m with a PMH of PKD, Polycystic liver disease, portal HTN, HTN, HLD, umbilical hernia repair, colon ademona, GERD presented to the ED with NVD with progressively worsened abdominal distention from ascitic fluid. Interval events: Mr. Tijerina was in the ICU initially as a GM hold but subsequently transferred to the critical care team for further management of Sepsis. Patient is followed by Dr. Carson as an outpatient for his pleural effusion in which a Pluerx catheter was placed that somehow migrated to his abdominal cavity. On admission patient had a paracentesis done that reported an elevated ascitic white count. Initally it was suspected to be due to SBP and placed on Ceftriaxone. He also received 1 dose of Vancomycin. ID was consulted and recommended to change his antibiotic to Ceftazidime for suspicion of catheter-associated peritonitis for the migrated Pleurx catheter. His migrated Pleurx catheter was subsequently removed by Dr. Carson. CXR demonstrated a new moderate to large right pleural effusion and a pigtail was placed. Patient then developed respiratory distress after catheter removal and was given temporary oxygen supplementation. During his stay, he experienced 2 episodes of SVT with HR up to 180s. He was asymptomatic during both events. During the first event he was administered IV Metoprolol 5 mg. The second event spontaneously resolved and did not require medical management. Cardiology was informed. Metoprolol was added to his current regimen. As per Nephrology recommendations a tunnel catheter to RIJ was placed for initiation of hemodialysis. Psych was consulted after patient reported he now feels depressed and he was started on DesVenlafaxine. Towards the end of his ICU stay his pigtail catheter from the chest cavity was removed as it stopped draining fluid and it was believed the connection through his diaphargm has closed on its own. After stablization patient was to telemetry for episodes of chest pain and SVT. During admission in telemetry patient had at least 2 episodes of chest pain for which ACS was ruled out. On 04/13/17 we realized an increase in WBC count. Upon communication with David Granda MD we were asked to do an early paracentesis (scheduled weekly) which and results need to be followed up. Patient was also receiving IV albumin which was discontinued during admission in telemetry due to relatively normal albumin levels (yet prealbumin level was low) with recommendations to reevaluate regularly. An increase in LFTs were noted during tele admission, which based on communication with GI it was related to a cystic disease of the liver, yet Desvenlafaxin was help after approval from psychiatry. To improve nutrition so from was administered and patient was considering to undergo NG tube placement and tube feeding for short term, while IR and surgery team needed to be consulted for probably PEG/J tube placement. Patient was not considered a candidate for transplant at this time pending improvement in overall condition and nutrition (Daryl Hearn MD following transplant goals). Mechanical ventilation: None NIPPV: No Antibiotics: None Catheters/Lines: Tunneled RIJ hemodialysis catheter, PIV Nutrition: Renal dialysis diet DVT prophylaxis: sc Heparin Code status: Full Assessment/Plan: Assessment: Increased in WBC (need to be followed) Catheter-associated Peritonitis - resolved SHELBY on CKD on HD Nonsustained SVT - resolved Hyperkalemia - resolved Acute hypoxic respiratory failure - resolved Hypotension: - currently resolved. Plan * Continue to monitor renal function * HOLD IV Albumin 25 gm q8 for now * Dialysis M/W/F * Continue Epogen with dialysis. * monitoring of LFTs while we held DesVenlafaxine * Avoid Metoclopramide to avoid EPS * Continue monitoring blood pressure. His blood pressure normally responds well to 500cc of NS bolus. Specifically after paracentesis (despite it is not expected unless Rahal volume drained) * His beta rose will have to be restarted once his blood pressure is more stable for NSVT. * Follow up most recent ascitic fluid studies. * He will need weekly paracentesis. * Please follow the paracenthesis result from 04/14/17 * Consider 50gm albumin before and after each paracentesis. * Further recommendations and goals of care per Dr Hearn * Please follow improving nutrition, NG tube short term, PEG/J with IR/surgery team Significant Procedures: None, HD 3/w Assessment/Plan: As noted above
[2017-04-14 08:42] LABS: ABSOLUTE BASOPHIL COUNT 0 /CUMM (0.0-0.2); ABSOLUTE EOSINOPHIL COUNT 0.1 /CUMM (0.0-0.7); ABSOLUTE GRANULOCYTE CT 10.6 /CUMM (1.4-6.5); ABSOLUTE LYMPH COUNT 0.7 /CUMM (1.2-3.4); ABSOLUTE MONOCYTE COUNT 0.9 /CUMM (0.10-0.60); BASOPHIL % 0.1 % (0.0-2.0); EOSINOPHIL % 0.4 % (0-5); HEMATOCRIT 25.7 % (42-52); MEAN CORPUSCULAR HGB 23.8 PG (27.0-31.0); MEAN CORPUSCULAR HGB CONC 31.2 G/DL (33.0-37.0); MEAN CORPUSCULAR VOLUME 76.3 FL (80.0-94.0); MEAN PLATELET VOLUME 12.9 FL (7.4-10.4); RBC DISTRIBUTION WIDTH 23.4 % (11.5-14.5); RED BLOOD CELL CT 3.36 /CUMM (4.70-6.10); WHITE BLOOD CELL COUNT 12.3 /CUMM (4.8-10.8)
[2017-04-14 09:40] VITALS: BP 90/60
[2017-04-14 09:51] LABS: GRANULOCYTE % 85.9 % (42.2-75.2); PLATELET COUNT 208 /CUMM (130-400)
--- NOTE | 2017-04-14 11:13 | PN- Housestaff ---
LeeCastillo 04/14/17 1113: Subjective Follow-up For: Ascites secondary to Portal Hypertension Intermittent Hypotension Depression ESRD on dialysis Subjective: No overnight events. Patient remained afebrile. Seen and examined this morning. He is using 2 L O2 of oxygen maintaining saturation 93%. Patient denied any chest pain, short of breath, vomiting, abdominal pain, melena, blood in stool, blood in vomitus and dysuria. Patient reported nausea. He has poor appetite. Review of Systems Constitutional: Reports: see HPI. Objective Last 24 Hrs of Vital Signs/I&O Vital Signs Date Time Temp Pulse Resp B/P B/P Pulse O2 O2 Flow FiO2 Mean Ox Delivery Rate 04/14 1545 86/51 04/14 1510 97.0 71 20 80/56 93 Nasal 2.0L Cannula 04/14 0940 97.4 73 18 90/60 96 Nasal Cannula 04/14 0829 66 84/58 04/14 0800 93 Nasal 2.0L Cannula 04/14 0619 98.2 67 18 84/58 96 Nasal Cannula 04/14 0000 Nasal 2.0L Cannula 04/13 2042 98.2 86 18 90/52 94 Nasal 2.0L Cannula Intake & Output 04/14 1600 04/14 0800 04/14 0000 Intake Total 610 100 450 Output Total 200 Balance 410 100 450 Intake, IV 250 150 Intake, Oral 360 100 300 Number 0 Bowel Movements Output, Urine 200 Patient 138 lb Weight Physical Exam General Appearance: Alert, Cooperative Skin: ULCER ON COCCYGEAL AREA Skin Temp/Moisture Exam: Warm/Dry Sepsis Skin Exam (color): Normal for Ethnicity HEENT: Atraumatic, PERRLA, EOMI Neck: Supple Cardiovascular: Normal S1, Normal S2 Lungs: Decreased breath sounds b/l Abdomen: Distended Neurological: Normal Speech Extremities: No Edema Assessment/Plan Assessment: Mr. Tijerina is a 66 yo m with a PMH of PKD, Polycystic liver disease, portal HTN , HTN, HLD, umbilical hernia repair, colon ademona, GERD who presented to the ED with NVD with progressively worsened abdominal distention from ascitic fluid. Patient was initially managed in ICU and with stabilization was transferred to telemetry floor for management of following conditions. Now downgraded to general medicine to continue the care. Hepatic cirrhosis Ascites secondary to PHT: -s/p removal of ascitic fluid several times. -Ascitic fluid studies show decreasing white count with no evidence of infection -He does have rising LFTs which could be secondary to biliary compression by the cysts -Per nephrology, he will require weekly paracentesis. -Neupogen and Renvela Hypotension: -He has intermittent hypotension that responded to IV fluids. -His antihypertensive medications were discontinued considering his hypotension. Nonsustained SVT (currently resolved) Patient experienced 2 episodes of SVT with HR up to 180s. He was asymptomatic during both events. During the first event he was administered IV Metoprolol 5 mg. The second event spontaneously resolved and did not require medical management -Cardiology recommendations appreciated -Will administer Adenosine for any acute events -His beta rose will have to be restarted once his blood pressure is more stable. Catheter-associated Peritonitis - resolved Patient had an indwelling pleural catheter placed in July 2016 for pleural effusion that migrated into the abdominal cavity. Considering that the patient's catheter was never removed it could have been a possible source of infection. He had another catheter placed in the R lung that was eventually removed. CT abdomen/pelvis on admission demonstrated the resolution of his R-side pleural effusion. He gets 1L of ascitic fluid drained from the migrated Pleurx catheter on MWF. Prior to coming to the hospital it was last drained by his visiting nurse. -Had a diagnostic and therapeutic paracentesis again 04/07 -Ceftazidime has been discontinued Depression: -Patient requested for a psych consult as he feels depressed. -Psych has suggested starting him on DesVenlafaxine 50mg daily. -We will hold desvenlafaxine today and monitor LFT -Renal and GI have approved the use of the medication from their standpoint. However, recommend monitoring of LFTs while on the drug. -His LFTs have been uptrending. Will need to discuss about the possibility of continuing the medication. History of PKD, Polycystic liver disease: Patient reported he had an appt at [facility] in which he was told he wouldn't receive a transplant until the resolution of his ascitic fluid. CT abd/pel demonstrated numerous cysts effectively replacing the normal hepatic and bilateral renal parenchyma -Follow up hepatorenal transplant. Diet: Regular Diet with 2g K restriction. DVT Prophylaxis: ALPS Code Status: Full code Problem List: 1. Ascites 2. Polycystic kidney disease 3. Polycystic liver disease 4. Renal insufficiency Pain Ratin Pain Location: none Pain Goal: Remain pain free Pain Plan: pain pathway Tomorrow's Labs & Rationales: cbc/bep Tracy LYONSCelso 04/14/17 1632: Attending MD Review Statement Attending Statement Attending MD Statement: examined this patient, discuss w/resident/PA/SURG TECH, agreed w/resident/PA/SURG TECH, reviewed EMR data (avail) Attending Assessment/Plan: 67M PMH polycystic kidney and liver disease, portal HTN, HTN, HLD, umbilical hernia repair, colon ademona, GERD, admitted initially to ICU with sepsis secondary to abdominal peritonitis due to displaced Pleurex catheter into the abdomen, with cultures growing E.coli and Pseudomonas, completed course of Ceftazidime, now on hemodialysis, with decompensated cirrhosis requiring weekly paracentesis, unable to eat due to compression and mass effect of fluid and cysts, with course complicated by two episodes of SVT as well as unstageable coccyx ulcer, now hemodynamically stable. Patient was unable to tolerate NG tube today. It was placed, but was too uncomfortable and had to be removed. Ascites still present on exam. Vitals stable. Plan - Continue on general medicine - GI consult for plan going forward for nutrition (NG vs J-tube vs TPN) - Monitor off antibiotics - Follow nephrology, cardiology, ID, wound care recommendations - Continue Verapamil for SVT - Continue gentle hydration as necessary - Monitor electrolytes - DVT PPx - Monitor off antibiotics - Follow nephrology, cardiology, ID, wound care recommendations - Continue Verapamil for SVT - Continue gentle hydration as necessary - Monitor electrolytes - DVT PPx - Monitor electrolytes - DVT PPx
--- NOTE | 2017-04-14 12:07 | PN- Wound Care ---
Subjective Subjective: Patient is seen for review of a pressure ulcer of his coccyx, the time he was first evaluated he had a 3.5 x 2.5 and minerals with 90% dry yellow fill. Been treated with Santyl and Xeroform. Now measures approximately 2.5 x 1.5 cm with very thin yellow slough and areas of granulation tissue developing. Derik to this is another minute wound measuring approximately 3 mm. Continue offloading with Clinitron bed Santyl and Xeroform as wound appears to be improving Objective Vital Signs and I&Os Vital Signs Result Date Time Pulse Ox 96 04/14 09 B/P 90/60 04/14 09 O2 Delivery Nasal Cannula 04/14 939 Temp 97.4 04/14 939 Pulse 73 04/14 09 Resp 18 04/14 09 O2 Flow Rate 2.0L 04/14 0000 Intake & Output 04/14 0000 04/13 1600 04/13 0800 Intake Total 450 200 600 Output Total 4200 0 Balance 450 -4000 600 Intake, IV 150 500 Intake, Oral 300 200 100 Number 1 Bowel Movements Output, Other 4200 Output, Urine 0 Patient 138 lb Weight Weight Standing Scale Measurement Method Wound measures 2.5 x 1.5 cm with a thin yellow fill. There are areas of granulation tissue present. There is a small satellite ulcer approximately 3 mm Impression/Plan Impression/Plan Impression/Plan: Unstageable pressure ulcer now appears to be improving and measures smaller continue Santyl Xeroform and a Clinitron bed
[2017-04-14 15:10] VITALS: BP 80/56
[2017-04-14 15:45] VITALS: BP 86/51
[2017-04-14 20:00] VITALS: BP 96/60
[2017-04-15 04:00] VITALS: BP 92/60
--- NOTE | 2017-04-15 07:49 | PN- Housestaff ---
LeeCastillo 04/15/17 0748: Subjective Follow-up For: Ascites secondary to Portal Hypertension Intermittent Hypotension Depression ESRD on dialysis Subjective: No overnight events. Patient remained afebrile overnight. Seen and examined this morning. He is using 2 units of oxygen maintaining saturation 93%. Patient denied any chest pain, short of breath, nausea, vomiting, chills, fever, abdominal pain dysuria. His appetite is poor. We will consult GI for NG tube vs G-tube or TPN for nutrition. We will follow the nutrition recommendations. Review of Systems Constitutional: Reports: see HPI. Objective Last 24 Hrs of Vital Signs/I&O Vital Signs Date Time Temp Pulse Resp B/P B/P Pulse O2 O2 Flow FiO2 Mean Ox Delivery Rate 04/15 0819 97.5 91 19 90/56 96 Nasal Cannula 04/15 0400 97.5 94 16 92/60 91 Room Air 04/14 2000 97.6 76 16 96/60 99 Nasal 2.0L Cannula 04/14 1545 86/51 04/14 1510 97.0 71 20 80/56 93 Nasal 2.0L Cannula Intake & Output 04/15 1600 04/15 0800 04/15 0000 Intake Total 240 Output Total Balance 240 Intake, Oral 240 Number 1 Bowel Movements Patient 130 lb Weight Weight Chair scale Measurement Method Physical Exam General Appearance: Alert, Oriented X3, Cooperative Skin Temp/Moisture Exam: Warm/Dry Sepsis Skin Exam (color): Normal for Ethnicity HEENT: Atraumatic, PERRLA, EOMI Neck: Supple Cardiovascular: Normal S1, Normal S2 Lungs: Clear to Auscultation Abdomen: DISTENDED due to ascites. Neurological: Normal Speech Extremities: No Edema Assessment/Plan Assessment: Mr. Tijerina is a 66 yo m with a PMH of PKD, Polycystic liver disease, portal HTN , HTN, HLD, umbilical hernia repair, colon ademona, GERD who presented to the ED with NVD with progressively worsened abdominal distention from ascitic fluid. Patient was initially managed in ICU and with stabilization was transferred to telemetry floor for management of following conditions. Now downgraded to general medicine for continuation of care. Hepatic cirrhosis Ascites secondary to PHT: -S/P removal of ascitic fluid several times. -Ascitic fluid studies show decreasing white count with no evidence of infection -MRCP does not reveal any acute abdominal process. -He does have rising LFTs which could be secondary to biliary compression by the cysts -Per nephrology, he will require weekly paracentesis. -Neupogen and Renvela Malnutrition: -Patient having poor appetite. -His malnutrition is multifactorial considering his disease process. -We will consult IR or surgery regarding NG tube feeding vs J-tube feeding ot TPN. -We will follow the nutrition recommendations. Hypotension: -Patient having intermittent hypotension that responded to IV fluids. -His antihypertensive medications were discontinued. Nonsustained SVT (currently resolved) Patient experienced 2 episodes of SVT with HR up to 180s. He was asymptomatic during both events. During the first event he was administered IV Metoprolol 5 mg. The second event spontaneously resolved and did not require medical management -Cardiology recommendations appreciated -Will administer Adenosine for any acute events -His beta rose will have to be restarted once his blood pressure is more stable. Catheter-associated Peritonitis - resolved Patient had an indwelling pleural catheter placed in July 2016 for pleural effusion that migrated into the abdominal cavity. Considering that the patient's catheter was never removed it could have been a possible source of infection. He had another catheter placed in the R lung that was eventually removed. CT abdomen/pelvis on admission demonstrated the resolution of his R-side pleural effusion. He gets 1L of ascitic fluid drained from the migrated Pleurx catheter on MWF. Prior to coming to the hospital it was last drained by his visiting nurse. -Had a diagnostic and therapeutic paracentesis again 04/07 -Ceftazidime has been discontinued Depression: -Patient requested for a psych consult as he feels depressed. -Psych has suggested starting him on DesVenlafaxine 50mg daily. -We will hold desvenlafaxine today and monitor LFT -Renal and GI have approved the use of the medication from their standpoint. However, recommend monitoring of LFTs while on the drug. -His LFTs have been uptrending. Will need to discuss about the possibility of continuing the medication. History of PKD, Polycystic liver disease: Patient reported he had an appt at [facility] in which he was told he wouldn't receive a transplant until the resolution of his ascitic fluid. CT abd/pel demonstrated numerous cysts effectively replacing the normal hepatic and bilateral renal parenchyma -Patient is getting dialysis. Diet: Regular Diet with 2g K restriction. DVT Prophylaxis: ALPS Code Status: Full code Problem List: 1. Ascites 2. Portal hypertension 3. Renal insufficiency Pain Ratin Pain Location: none Pain Goal: Remain pain free Pain Plan: pain pathway Tomorrow's Labs & Rationales: cbc/bep Celso Molina MD 04/15/17 1331: Attending MD Review Statement Attending Statement Attending MD Statement: examined this patient, discuss w/resident/PA/ENGINEERING PROFESSOR, agreed w/resident/PA/ENGINEERING PROFESSOR, reviewed EMR data (avail) Attending Assessment/Plan: 67M PMH polycystic kidney and liver disease, portal HTN, HTN, HLD, umbilical hernia repair, colon ademona, GERD, admitted initially to ICU with sepsis secondary to abdominal peritonitis due to displaced Pleurex catheter into the abdomen, with cultures growing E.coli and Pseudomonas, completed course of Ceftazidime, now on hemodialysis, with decompensated cirrhosis requiring weekly paracentesis, unable to eat due to compression and mass effect of fluid and cysts, with course complicated by two episodes of SVT as well as unstageable coccyx ulcer, now hemodynamically stable. Patient was unable to tolerate NG tube 04/14. It was placed, but was too uncomfortable and had to be removed. Ascites still present on exam. Vitals stable. Plan - Continue on general medicine - Spoke with GI, impossible to place PEG due to cystic disease - Will contact IR and Dr. Robles of surgery for IR-guided vs open J-tube placement - Monitor off antibiotics - Follow nephrology, cardiology, ID, wound care recommendations - Continue Verapamil for SVT - Continue gentle hydration as necessary - Monitor electrolytes - DVT PPx
[2017-04-15 08:19] VITALS: BP 90/56
[2017-04-15 08:21] LABS: ABSOLUTE BASOPHIL COUNT 0 /CUMM (0.0-0.2); ABSOLUTE EOSINOPHIL COUNT 0 /CUMM (0.0-0.7); ABSOLUTE GRANULOCYTE CT 10.6 /CUMM (1.4-6.5); ABSOLUTE LYMPH COUNT 0.7 /CUMM (1.2-3.4); BASOPHIL % 0 % (0.0-2.0); EOSINOPHIL % 0.3 % (0-5); GRANULOCYTE % 86.3 % (42.2-75.2); HEMATOCRIT 28.9 % (42-52); MEAN CORPUSCULAR HGB 23.5 PG (27.0-31.0); MEAN CORPUSCULAR HGB CONC 30.9 G/DL (33.0-37.0); MEAN CORPUSCULAR VOLUME 76.2 FL (80.0-94.0); MEAN PLATELET VOLUME 12.1 FL (7.4-10.4); RBC DISTRIBUTION WIDTH 22.5 % (11.5-14.5); RED BLOOD CELL CT 3.79 /CUMM (4.70-6.10); WHITE BLOOD CELL COUNT 12.3 /CUMM (4.8-10.8)
[2017-04-15 09:01] LABS: PLATELET COUNT 245 /CUMM (130-400)
--- NOTE | 2017-04-15 12:47 | PN- Nephrology ---
Assessment/Plan Assessment: ESRD. polycystic kidney / liver disease. portal hypertension with ascites. On dialysis now. Encourage po. Deejay Conley MD Suggestion: . Subjective Subjective: Pt on dialysis now Objective Vital Signs and I&Os Pt comfortable 90/56 97.5 Lungs clear Cor RRR Abd soft Ext neg edmea Results Pertinent Lab Results: 142 /99 / 60 / 3.9 / 21 / 3.6\
[2017-04-15 15:52] VITALS: BP 100/72
[2017-04-15 21:00] VITALS: BP 100/60
[2017-04-16] VITALS (8 sets, daily range): BP systolic 82–108; BP diastolic 52–70
[2017-04-16 09:08] LABS: ABSOLUTE BASOPHIL COUNT 0 /CUMM (0.0-0.2); ABSOLUTE EOSINOPHIL COUNT 0 /CUMM (0.0-0.7); ABSOLUTE GRANULOCYTE CT 9.6 /CUMM (1.4-6.5); ABSOLUTE LYMPH COUNT 0.8 /CUMM (1.2-3.4); ABSOLUTE MONOCYTE COUNT 0.8 /CUMM (0.10-0.60); BASOPHIL % 0.2 % (0.0-2.0); EOSINOPHIL % 0.2 % (0-5); GRANULOCYTE % 84.9 % (42.2-75.2); HEMATOCRIT 25.8 % (42-52); MEAN CORPUSCULAR HGB 23.6 PG (27.0-31.0); MEAN CORPUSCULAR HGB CONC 31.2 G/DL (33.0-37.0); MEAN CORPUSCULAR VOLUME 75.8 FL (80.0-94.0); MEAN PLATELET VOLUME 11.8 FL (7.4-10.4); PLATELET COUNT 219 /CUMM (130-400); WHITE BLOOD CELL COUNT 11.3 /CUMM (4.8-10.8)
--- NOTE | 2017-04-16 12:31 | PN- Housestaff ---
ShelleyGilberto 04/16/17 1231: Subjective Follow-up For: ADPKD ESRD Portal HTN Nonsustained SVT, resolved depression Subjective: Mr. Tijerina was seen and examined at the bedside. He had no acute events overnight and remained stable. This morning, he had an intermittent episode of hypotension which responded appropriately to fluid challenge. He remains on 2L of oxygen maintaining saturation in the mid 90s. He remains unable to tolerate food PO. Review of Systems Constitutional: Reports: see HPI. Objective Last 24 Hrs of Vital Signs/I&O Vital Signs Date Time Temp Pulse Resp B/P B/P Pulse O2 O2 Flow FiO2 Mean Ox Delivery Rate 04/16 1954 98.0 89 18 98/52 94 Nasal 2.0L Cannula 04/16 1214 81 92/54 04/16 0905 104/52 04/16 0900 97.6 80 17 82/60 91 Nasal 2.0L Cannula 04/16 0800 Nasal 2.0L Cannula 04/16 0500 98.0 81 18 104/52 91 04/16 0100 97.8 86 18 96/58 91 04/16 0000 94 Nasal 2.0L Cannula Intake & Output 04/16 1600 04/16 0800 04/16 0000 Intake Total 650 250 240 Output Total 200 Balance 650 50 240 Intake, IV 250 Intake, Oral 400 250 240 Output, Urine 200 Patient 58.967 kg Weight Weight Chair scale Measurement Method Physical Exam General Appearance: Alert, cachectic appearing male. NAD HEENT: Atraumatic, EOMI, Mucous Membr. moist/pink Neck: Supple Cardiovascular: Regular Rate, Normal S1, Normal S2, RCW jus cath Lungs: Clear to Auscultation, Normal Air Movement Abdomen: Soft, distended. non significant tenderness Extremities: No Cyanosis, No Tenderness/Swelling Current Medications: Current Medications Sig/Lola Start time Last Medication Dose Route Stop Time Status Admin Acetaminophen 650 MG .STK-MED ONE 04/16 0612 DC PO 04/16 0613 Acetaminophen 650 MG Q4P PRN 04/01 1815 AC 04/16 PO 1930 Albumin Human 25 GM ONCE ONE 04/16 1230 DC 04/16 IV 04/16 1231 1402 Benzocaine/Menthol 1 MYLES Q2P PRN 04/03 1100 AC PO Bisacodyl 10 MG ONCE PRN 04/[address] Collagenase 1 BENEDICTO BID 04/02 1100 AC 04/16 TOP 0911 Dronabinol 2.5 MG DAILY 04/09 1400 DC 04/16 PO 1009 Epoetin Bryan 3,000 UNIT 03/30 1000 AC 04/08 IV 1317 Glycerin 2 SPRAY Q2P PRN 04/01 2045 AC PO Heparin Sodium 5,000 UNIT Q8 03/28 1444 AC 04/16 (Porcine) SC 1402 Morphine Sulfate 2 MG Q4P PRN 04/05 1730 AC 04/15 IV 1456 Multivitamins 1 TAB 1700 03/25 1700 AC 04/16 PO 1930 Omeprazole 40 MG DAILY AC 03/25 1648 AC 04/16 PO 0606 Ondansetron HCl 4 MG Q6P PRN 04/12 0845 AC 04/16 IV 1734 Polyethylene Glycol 17 GM DAILY PRN 04/03 1100 AC 04/06 PO 1850 Senna/Docusate Sodium 1 TAB BID PRN 04/06 1500 AC 04/13 PO 1308 Sevelamer Carbonate 1,600 MG WITH MEALS 03/24 1700 AC 04/16 PO 0905 Sodium Chloride 250 ML BOLUS ONE 04/16 1015 DC 04/16 IV 04/16 1114 1009 Verapamil HCl 180 MG DAILY 03/25 0745 AC 04/16 PO 0905 Last 24 Hrs of Lab/Clarke Results Last 24 Hrs of Labs/Mics: Laboratory Tests 04/16/17 0712: Anion Gap 20 H, Estimated GFR 25 L, BUN/Creatinine Ratio 13.8, CBC w Diff NO MAN DIFF REQ, RBC 3.40 L, MCV 75.8 L, MCH 23.6 L, MCHC 31.2 L, RDW 23.0 H, MPV 11.8 H, Gran % 84.9 H, Lymphocytes % 7.3 L, Monocytes % 7.4, Eosinophils % 0.2, Basophils % 0.2, Absolute Granulocytes 9.6 H, Absolute Lymphocytes 0.8 L, Absolute Monocytes 0.8 H, Absolute Eosinophils 0, Absolute Basophils 0 Assessment/Plan Assessment: Mr. Tijerina is a 66 yo m with a PMH of ADPKD/polycystic liver disease with resultant portal HTN. He also has HTN, HLD, colon ademona, and GERD. He presented with complaints of NVD and worsening abdominal distention. Patient was initially managed in ICU and with stabilization was transferred to telemetry floor for management of following conditions. Now downgraded to general medicine for continuation of care. Problem List/Assessment and Plan Hepatic cirrhosis with ascites * s/p multiple paracenteses with ascitic fluid studies show decreasing white count with no evidence of infection * s/p -ve MRCP * Per nephrology, he will require weekly paracentesis in addition to HD to remove fluid. He is on neupogen and renvela ' * Another episode of hypotension. Given his cirrhotic state, consider albumin infusion to increase oncotic pressure, maintain BP and reduce thrid spacing. * continue to hold HTN meds obviously Malnutrition * Persistent poor appetite. * His malnutrition is multifactorial considering his disease process. * ? NG tube feeding vs J-tube feeding or TPN. * Family meeting planned for tuesday Depression * psych consult appreciated. * Continue meds, and f/u psych re-evaluation History of PKD, Polycystic liver disease * Unfortunately not a candidate for transplant at the moment. * CT abd/pelvis demonstrated numerous cysts effectively replacing the normal hepatic and bilateral renal parenchyma * Currently on HD MWF * Goals of care to be discussed tuesday at the family meeting. FULL CODE Renal dialysis diet ALPS pain path as ordered Problem List: 1. Polycystic kidney disease 2. Polycystic liver disease 3. Portal hypertension 4. Ascites Pain Ratin Pain Location: abdomen Pain Goal: Pain 4 or less Pain Plan: contnue Tomorrow's Labs & Rationales: cnc/luana Hensley MD,B 04/17/17 0824: Attending MD Review Statement Attending Statement Attending MD Statement: examined this patient (pt seen and examined on 04/16), discuss w/resident/PA/SENIOR PROJECT ACCOUNTANT, agreed w/resident/PA/SENIOR PROJECT ACCOUNTANT, discussed with family, discussed with case mgmt
[2017-04-17 04:00] VITALS: BP 100/54
--- NOTE | 2017-04-17 07:32 | PN- Housestaff ---
LeeJonathan 04/17/17 0732: Subjective Follow-up For: Ascites secondary to Portal Hypertension Intermittent Hypotension Depression ESRD on dialysis Subjective: No overnight events. Patient remained afebrile overnight. Seen and examined this morning. He is using 2 L of oxygen maintaining saturation 92%. He maintaining his blood pressure 100 today. We will discuss with surgery or IR if they can place a J-tube for feeding. May be patient needs TPN. Review of Systems Constitutional: Reports: see HPI. Objective Last 24 Hrs of Vital Signs/I&O Vital Signs Date Time Temp Pulse Resp B/P B/P Pulse O2 O2 Flow FiO2 Mean Ox Delivery Rate 04/17 0820 83 16 98/62 93 Nasal 2.0L Cannula 04/17 0818 83 98/62 04/17 0400 97.4 84 18 100/54 92 04/17 0000 Nasal 2.0L Cannula 04/16 2356 98.0 81 18 102/56 93 / 2000 98.0 89 18 98/62 94 Nasal 2.0L Cannula 04/16 1954 98.0 89 18 98/52 94 Nasal 2.0L Cannula 04/16 1600 95 Nasal 2.0L Cannula 04/16 1600 97.6 87 16 108/70 91 Nasal 2.0L Cannula 04/16 1214 81 92/54 Intake & Output 04/17 1600 04/17 0800 04/17 0000 Intake Total 240 410 Output Total 251 Balance 240 159 Intake, IV 10 Intake, Oral 240 400 Number 1 Bowel Movements Output, Stool 1 Output, Urine 250 Patient 131 lb Weight Physical Exam General Appearance: Alert, Cooperative Skin Temp/Moisture Exam: Warm/Dry Sepsis Skin Exam (color): Normal for Ethnicity HEENT: Atraumatic Neck: Supple Cardiovascular: Normal S1, Normal S2 Lungs: Decreased breath sounds b/l Abdomen: Distended Neurological: Normal Speech Extremities: No Edema Assessment/Plan Assessment: Mr. Tijerina is a 66 yo m with a PMH of ADPKD/polycystic liver disease with resultant portal HTN. He also has HTN, HLD, colon ademona, and GERD. He presented with complaints of NVD and worsening abdominal distention. Patient was initially managed in ICU and with stabilization was transferred to telemetry floor for management of following conditions. Now downgraded to general medicine for continuation of care. Problem List/Assessment and Plan Hepatic cirrhosis with ascites * s/p multiple paracenteses with ascitic fluid studies show decreasing white count with no evidence of infection * s/p -ve MRCP * Per nephrology, he will require weekly paracentesis in addition to HD to remove fluid. He is on neupogen and renvela ' * Another episode of hypotension. Given his cirrhotic state, consider albumin infusion to increase oncotic pressure, maintain BP and reduce thrid spacing. * continue to hold HTN meds obviously Malnutrition * Persistent poor appetite. * His malnutrition is multifactorial considering his disease process. * ? NG tube feeding vs J-tube feeding or TPN. * Family meeting planned for tuesday Depression * psych consult appreciated. * Continue meds, and f/u psych re-evaluation History of PKD, Polycystic liver disease * Unfortunately not a candidate for transplant at the moment. * CT abd/pelvis demonstrated numerous cysts effectively replacing the normal hepatic and bilateral renal parenchyma * Currently on HD MWF * Goals of care to be discussed tuesday at the family meeting. FULL CODE Renal dialysis diet ALPS pain path as ordered Problem List: 1. Ascites 2. Portal hypertension 3. Polycystic kidney disease Pain Ratin Pain Location: none Pain Goal: Remain pain free Pain Plan: pain pathway Tomorrow's Labs & Rationales: cbc/bep Ayden LYONS,B 04/17/17 1112: Attending MD Review Statement Attending Statement Attending MD Statement: examined this patient, discuss w/resident/PA/PERFORMANCE SOLUTIONS SPECIALIST, agreed w/resident/PA/PERFORMANCE SOLUTIONS SPECIALIST, discussed with nursing, discussed with case mgmt Attending Assessment/Plan: 67 y/o male with PMH s/f PCKD, portal hypertension c/b ascites admitted with abdominal E coli and pseudomonal peritonitis 2/2 displaced pleurex cath completed abx course. ESRD on dialysis, not a candidate for transplant for PCKD. decompenstated cirrhosis c/b recurrent ascites requiring paracentsis. Malnutrition in the setting of poor po intake - failed NG tube, now planning on J tube with either surgery or IR. Hypotension: BP is on the softer side - received NSB and albumin yesetrday. Family is meeting with social work lecturer and team on tuesday. It will be worthwhile discussing goals of care with the patient and family given poor prognosis.
[2017-04-17 08:20] VITALS: BP 98/62
[2017-04-17 09:07] LABS: ABSOLUTE BASOPHIL COUNT 0 /CUMM (0.0-0.2); ABSOLUTE EOSINOPHIL COUNT 0 /CUMM (0.0-0.7); ABSOLUTE GRANULOCYTE CT 9.2 /CUMM (1.4-6.5); ABSOLUTE LYMPH COUNT 0.9 /CUMM (1.2-3.4); ABSOLUTE MONOCYTE COUNT 0.8 /CUMM (0.10-0.60); BASOPHIL % 0 % (0.0-2.0); EOSINOPHIL % 0.1 % (0-5); GRANULOCYTE % 84.5 % (42.2-75.2); HEMATOCRIT 27.1 % (42-52); MEAN CORPUSCULAR HGB 23.4 PG (27.0-31.0); MEAN CORPUSCULAR VOLUME 75.5 FL (80.0-94.0); MEAN PLATELET VOLUME 11.5 FL (7.4-10.4); PLATELET COUNT 237 /CUMM (130-400); RBC DISTRIBUTION WIDTH 22.7 % (11.5-14.5); WHITE BLOOD CELL COUNT 10.9 /CUMM (4.8-10.8)
--- NOTE | 2017-04-17 09:09 | Cons- General Surgery ---
General Information and HPI Consulting Request Date of Consult: 04/17/17 Requested By: Lucero Rueda MD Reason for Consult: jejunostomy tube placement History of Present Illness: Patient presents for evaluation of feeding jejunostomy tube placement. He has polycystic liver and kidney disease, now with renal failure on dialysis and tenuous liver function. He is becoming a emaciated due to poor oral intake. Feeding gastrostomy tube cannot be placed due to presence of large liver edge and cystic disease. The only avenue for enteric feedings is that of jejunostomy tube. Apparently he failed naso gastric feeding due to intolerance from gagging. Allergies/Medications Allergies: Coded Allergies: NO KNOWN ALLERGIES (02/26/15) Home Med List: Furosemide 40 MG TABLET 1 TAB PO Tuesday WATER RETENTION (Reported) Hydrocodone/Acetaminophen ([place] 5-325 Tablet) 5 MG-325 MG TABLET 1-2 TAB PO Q4-6 PRN PRN PAIN Lisinopril (Prinivil) 20 MG TABLET 1 TAB PO DAILY HTN (Reported) Omeprazole 40 MG CAPSULE.DR 1 CAP PO DAILY GI (Reported) Sevelamer Carbonate (Renvela) 800 MG TABLET 1,600 MG PO WITH MEALS kidney Verapamil HCl (Verapamil Sr) 180 MG CAP24H.PEL 1 TAB PO DAILY HTN (Reported) Current Medications: Current Medications Sig/Lola Start time Last Medication Dose Route Stop Time Status Admin Acetaminophen 650 MG .STK-MED ONE 04/16 1727 DC PO 04/16 1728 Acetaminophen 650 MG Q4P PRN 04/01 1815 AC 04/16 PO 1930 Albumin Human 25 GM ONCE ONE 04/16 1230 DC 04/16 IV 04/16 1231 1402 Benzocaine/Menthol 1 MYLES Q2P PRN 04/03 1100 AC PO Bisacodyl 10 MG ONCE PRN 04/09 1330 AC MI Collagenase 1 BENEDICTO BID 04/02 1100 AC 04/17 TOP 0818 Dronabinol 2.5 MG DAILY 04/09 1400 DC 04/16 PO 1009 Epoetin Bryan 3,000 UNIT 03/30 1000 AC 04/08 IV 1317 Glycerin 2 SPRAY Q2P PRN 04/01 2045 AC PO Heparin Sodium 5,000 UNIT Q8 03/28 1444 AC 04/17 (Porcine) SC 0546 Morphine Sulfate 2 MG Q4P PRN 04/05 1730 AC 04/15 IV 1456 Multivitamins 1 TAB 1700 03/25 1700 AC 04/16 PO 1930 Omeprazole 40 MG DAILY AC 03/25 1648 AC 04/17 PO 0547 Ondansetron HCl 4 MG .STK-MED ONE 04/16 1731 DC IM 04/16 1732 Ondansetron HCl 4 MG Q6P PRN 04/12 0845 AC 04/16 IV 1734 Polyethylene Glycol 17 GM DAILY PRN 04/03 1100 AC 04/06 PO 1850 Senna/Docusate Sodium 1 TAB BID PRN 04/06 1500 AC 04/13 PO 1308 Sevelamer Carbonate 1,600 MG WITH MEALS 03/24 1700 AC 04/17 PO 0818 Verapamil HCl 180 MG DAILY 03/25 0745 AC 04/17 PO 0818 Past History Medical History Blood Transfusion Hx: No Neurological: Sciatica EENT: NONE Cardiovascular: hypertension, hyperlipidemia Respiratory: NONE Gastrointestinal: INGUINAL HERNIA Hepatic: POLYCYSTIC LIVER ASCITES PLEUREX CATH DRAIN TO R ABD Ascites Renal: POLYCYSTIC KIDNEY Musculoskeletal: NONE Psychiatric: Depression treated with talk therapy in the past, which he did not find helpful. 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 SON ( has polycystic kidney disease). Relation not specified for: *No pertinent family history Psychosocial History Where Do You Live? Home Smoking Status: Never Smoked ETOH Use: denies use Illicit Drug Use: denies illicit drug use Functional Ability ADLs Independent: dressing, eating, toileting, bathing. Ambulation: independent IADLs Independent: shopping, housework, finances, food prep, telephone, transportation , medication admin. 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 Malaise. Nausea. Weakness. No dyspnea or chest pain. Exam & Diagnostic Data Vital Signs and I&O Vital Signs Date Time Temp Pulse Resp B/P B/P Pulse O2 O2 Flow FiO2 Mean Ox Delivery Rate 04/17 819 83 16 98/62 93 Nasal 2.0L Cannula 04/17 08 83 98/62 04/17 0400 97.4 84 18 100/54 92 04/17 0000 Nasal 2.0L Cannula 04/166 98.0 81 18 102/56 93 04/16 1999 98.0 89 18 98/62 94 Nasal 2.0L Cannula 04/16 195 98.0 89 18 98/52 94 Nasal 2.0L Cannula 04/16 1600 95 Nasal 2.0L Cannula 04/16 1599 97.6 87 16 108/70 91 Nasal 2.0L Cannula 04/16 1214 81 92/54 Intake & Output 04/17 0800 04/17 0000 04/16 1600 04/16 0804/16 0000 Intake Total 240 410 650 250 240 Output Total 251 200 Balance 240 159 650 50 240 Intake, IV 10 250 Intake, Oral 240 400 400 250 240 Number 1 Bowel Movements Output, Stool 1 Output, Urine 250 200 Patient 131 lb 130 lb Weight Weight Chair scale Measurement Method Physical Exam: Gen.: Temporal wasting no distress looks tired HEENT: Scleral icterus PERRL EOMI Abdomen: Soft distended fluid wave. Hepatomegaly Last 24 Hours of Labs: Laboratory Tests 04/17 844 Chemistry Sodium Pending Potassium Pending Chloride Pending Carbon Dioxide Pending Anion Gap Pending BUN Pending Creatinine Pending BUN/Creatinine Ratio Pending Hematology CBC w Diff Pending WBC Pending RBC Pending Hgb Pending Hct Pending MCV Pending MCH Pending MCHC Pending RDW Pending Plt Count Pending MPV Pending Assessment/Plan Assessment/Plan Patient with inadequate caloric intake in need of supplemental feeds. Given anatomy with hepatomegaly, the best option would be surgically placed feeding jejunostomy. This would require general anesthesia, evacuation of ascites. The most concerning anticipated complications would be transient hypotension related to fluid shifts from evacuation of ascities. The other problem that can occur would be worseing of his liver function related to general anesthesia ( alterations of tenuous perfusion). Finally, there exists the potential for ascities leak from midline incision. Discussed with the and patient. Although his operation is fairly minor in nature, there is higher than average risk for complication. They will discuss it amongst themselves whether or not they wish to proceed with feeding jejunostomy placement. Consult Acknowledgment - Thank you for your consult request.
[2017-04-17 11:52] VITALS: BP 90/50
[2017-04-17 16:23] VITALS: BP 118/64
[2017-04-17 20:19] VITALS: BP 114/64
[2017-04-17 23:31] VITALS: BP 100/60
[2017-04-18 03:45] VITALS: BP 118/60
--- NOTE | 2017-04-18 07:23 | PN- Housestaff ---
LeeCastillo 04/18/17 0723: Subjective Follow-up For: Ascites secondary to Portal Hypertension Intermittent Hypotension Depression ESRD on dialysis Subjective: No overnight events. Patient remained afebrile overnight. Seen and examined this morning. He reported decrease in appetite and weakness. He denied any chest pain, short of breath, nausea, vomiting, chills, fever, abdominal pain dysuria. Patient is using 2 L of oxygen maintaining saturation 93%. Patient is going for dialysis today. Review of Systems Constitutional: Reports: see HPI. Objective Last 24 Hrs of Vital Signs/I&O Vital Signs Date Time Temp Pulse Resp B/P B/P Pulse O2 O2 Flow FiO2 Mean Ox Delivery Rate 04/18 0748 97.7 81 18 110/80 94 Room Air 04/18 0345 97.6 76 20 118/60 93 Nasal 2.0L Cannula 04/18 0000 Nasal 2.0L Cannula 04/17 2331 98.0 72 20 100/60 92 / 2019 98.2 78 16 114/64 91 Nasal 2.0L Cannula 04/17 1623 97.5 82 18 118/64 93 Nasal 2.0L Cannula 04/17 1600 95 Nasal 2.0L Cannula 04/17 1152 97.9 83 18 90/50 96 Nasal 2.0L Cannula Intake & Output 04/18 1600 04/18 0800 02 0000 Intake Total 240 410 Output Total 30 Balance 240 380 Intake, IV 10 Intake, Oral 240 400 Number 0 Bowel Movements Output, Urine 30 Patient 131 lb Weight Physical Exam General Appearance: Alert, Oriented X3, Cooperative Skin Temp/Moisture Exam: Warm/Dry Sepsis Skin Exam (color): Normal for Ethnicity HEENT: Atraumatic, PERRLA, EOMI Neck: Supple Cardiovascular: Normal S1, Normal S2 Lungs: Clear to Auscultation, Decreased breath sounds Abdomen: Soft, No Tenderness Neurological: Normal Speech, Normal Tone Extremities: No Edema Assessment/Plan Assessment: Mr. Tijerina is a 66 yo m with a PMH of ADPKD/polycystic liver disease with resultant portal HTN. He also has HTN, HLD, colon ademona, and GERD. He presented with complaints of NVD and worsening abdominal distention. Patient was initially managed in ICU and with stabilization was transferred to telemetry floor for management of following conditions. Now downgraded to general medicine for continuation of care. Hepatic cirrhosis with ascites -s/p multiple paracenteses with ascitic fluid studies show decreasing white count with no evidence of infection -s/p -ve MRCP -Per nephrology, he will require weekly paracentesis in addition to HD to remove fluid. He is on neupogen and renvela ' -Another episode of hypotension. Given his cirrhotic state, consider albumin infusion to increase oncotic pressure, maintain BP and reduce thrid spacing. -continue to hold HTN meds obviously Malnutrition -Persistent poor appetite. -His malnutrition is multifactorial considering his disease process. - J-tube vs TPN for feeding. -Family meeting planned by surgery to discuss the risks and benefits of the J- tube with family. Depression -psych consult appreciated. -Continue meds, and f/u psych re-evaluation History of PKD, Polycystic liver disease -Unfortunately not a candidate for transplant at the moment. -CT abd/pelvis demonstrated numerous cysts effectively replacing the normal hepatic and bilateral renal parenchyma -Currently on HD MWF -Goals of care to be discussed tuesday at the family meeting. CODE STATUS full Code DVT prophylaxis: ALPS Problem List: 1. Ascites 2. Portal hypertension 3. Polycystic kidney disease Pain Ratin Pain Location: none Pain Goal: Remain pain free Pain Plan: pain pathway Tomorrow's Labs & Rationales: cbc/bep Celso Molina MD 04/18/17 1229: Attending MD Review Statement Attending Statement Attending MD Statement: examined this patient, discuss w/resident/PA/ADULT EDUCATION PROFESSIONAL, agreed w/resident/PA/ADULT EDUCATION PROFESSIONAL, reviewed EMR data (avail) Attending Assessment/Plan: 67M PMH polycystic kidney and liver disease, portal HTN, HTN, HLD, umbilical hernia repair, colon ademona, GERD, admitted initially to ICU with sepsis secondary to abdominal peritonitis due to displaced Pleurex catheter into the abdomen, with cultures growing E.coli and Pseudomonas, completed course of Ceftazidime, now on hemodialysis, with decompensated cirrhosis requiring weekly paracentesis, unable to eat due to compression and mass effect of fluid and cysts, with course complicated by two episodes of SVT as well as unstageable coccyx ulcer, now hemodynamically stable. Patient was unable to tolerate NG tube 2/. It was placed, but was too uncomfortable and had to be removed. Ascites still present on exam. Vitals stable. Plan - Continue on general medicine - Spoke with GI, impossible to place PEG due to cystic disease - Follow surgery recommendations - Monitor off antibiotics - Follow nephrology, cardiology, ID, wound care recommendations - Continue Verapamil for SVT - Continue gentle hydration as necessary - Monitor electrolytes - DVT PPx - Goals of care discussion with patient
[2017-04-18 07:48] VITALS: BP 110/80
[2017-04-18 09:41] LABS: RBC DISTRIBUTION WIDTH 22.6 % (11.5-14.5)
[2017-04-18 09:46] LABS: HEMATOCRIT 26.9 % (42-52); MEAN CORPUSCULAR HGB CONC 30.9 G/DL (33.0-37.0); MEAN CORPUSCULAR VOLUME 74.4 FL (80.0-94.0); MEAN PLATELET VOLUME 12.1 FL (7.4-10.4); PLATELET COUNT 263 /CUMM (130-400); RED BLOOD CELL CT 3.61 /CUMM (4.70-6.10); WHITE BLOOD CELL COUNT 12.5 /CUMM (4.8-10.8)
--- NOTE | 2017-04-18 11:34 | PN- Nephrology ---
Assessment/Plan Assessment: ESRD. polycystic kidney / liver disease. portal hypertension with ascites. On dialysis now. Encourage po/activity. Deejay Conley MD Suggestion: . Subjective Subjective: Pt on dialysis . still not eating well. Objective Vital Signs and I&Os M comfortable 110/80 81 97 Lungs clear Cor RRR Abd soft pos ascites Ext neg edema Results Pertinent Lab Results: Laboratory Tests 04/18 04/18 04/17 UNK 0600 0845 Chemistry Sodium (137 - 145 mmol/L) 141 Cancelled Potassium (3.5 - 5.1 mmol/L) 3.7 Cancelled Chloride (98 - 107 mmol/L) 98 Cancelled Carbon Dioxide (22 - 30 mmol/L) 24 Cancelled Anion Gap (5 - 16) 19 H Cancelled BUN (9 - 20 mg/dL) 66 H Cancelled Creatinine (0.7 - 1.2 mg/dL) 4.1 H Cancelled Estimated GFR (>60 ml/min) 15 L BUN/Creatinine Ratio (7 - 25 %) 16.1 Cancelled Hemoglobin A1c (4.2 - 5.8 %) 5.3 Calcium (8.4 - 10.2 mg/dL) 9.7 Hematology CBC w Diff MAN DIFF ORDERED WBC (4.8 - 10.8 /CUMM) 12.5 H RBC (4.70 - 6.10 /CUMM) 3.61 L Hgb (14.0 - 18.0 G/DL) 8.3 L Hct (42 - 52 %) 26.9 L MCV (80.0 - 94.0 FL) 74.4 L MCH (27.0 - 31.0 PG) 23.0 L MCHC (33.0 - 37.0 G/DL) 30.9 L RDW (11.5 - 14.5 %) 22.6 H Plt Count (130 - 400 /CUMM) 263 MPV (7.4 - 10.4 FL) 12.1 H Segmented Neutrophils (42.2 - 75.2 %) 80 H Band Neutrophils (0.0 - 5.0 %) 7 H Lymphocytes (20.5 - 51.1 %) 11 L Monocytes (1.7 - 9.3 %) 2 Platelet Estimate (ADEQUATE) ADEQUATE Hypochromic-Microcytic 2+ Poikilocytosis 1+ Basophilic Stippling RARE Anisocytosis 1+ 04/17 04/16 0845 0712 Chemistry Sodium (137 - 145 mmol/L) 142 143 Potassium (3.5 - 5.1 mmol/L) 3.6 3.4 L Chloride (98 - 107 mmol/L) 101 99 Carbon Dioxide (22 - 30 mmol/L) 21 L 24 Anion Gap (5 - 16) 20 H 20 H BUN (9 - 20 mg/dL) 52 H 36 H Creatinine (0.7 - 1.2 mg/dL) 3.3 H 2.6 H Estimated GFR (>60 ml/min) 19 L 25 L BUN/Creatinine Ratio (7 - 25 %) 15.8 13.8 Hematology CBC w Diff NO MAN DIFF REQ NO MAN DIFF REQ WBC (4.8 - 10.8 /CUMM) 10.9 H 11.3 H RBC (4.70 - 6.10 /CUMM) 3.60 L 3.40 L Hgb (14.0 - 18.0 G/DL) 8.4 L 8.0 L Hct (42 - 52 %) 27.1 L 25.8 L MCV (80.0 - 94.0 FL) 75.5 L 75.8 L MCH (27.0 - 31.0 PG) 23.4 L 23.6 L MCHC (33.0 - 37.0 G/DL) 31.0 L 31.2 L RDW (11.5 - 14.5 %) 22.7 H 23.0 H Plt Count (130 - 400 /CUMM) 237 219 MPV (7.4 - 10.4 FL) 11.5 H 11.8 H Gran % (42.2 - 75.2 %) 84.5 H 84.9 H Lymphocytes % (20.5 - 51.1 %) 8.3 L 7.3 L Monocytes % (1.7 - 9.3 %) 7.1 7.4 Eosinophils % (0 - 5 %) 0.1 0.2 Basophils % (0.0 - 2.0 %) 0 0.2 Absolute Granulocytes (1.4 - 6.5 /CUMM) 9.2 H 9.6 H Absolute Lymphocytes (1.2 - 3.4 /CUMM) 0.9 L 0.8 L Absolute Monocytes (0.10 - 0.60 /CUMM) 0.8 H 0.8 H Absolute Eosinophils (0.0 - 0.7 /CUMM) 0 0 Absolute Basophils (0.0 - 0.2 /CUMM) 0 0
[2017-04-18 13:47] VITALS: BP 114/80
[2017-04-18 16:00] VITALS: BP 114/82
[2017-04-18 20:05] VITALS: BP 118/60
[2017-04-19 00:24] VITALS: BP 117/74
[2017-04-19 06:43] VITALS: BP 123/81
--- NOTE | 2017-04-19 07:24 | PN- Housestaff ---
LeeJonathan 04/19/17 0724: Subjective Follow-up For: Ascites secondary to Portal Hypertension Intermittent Hypotension Depression ESRD on dialysis Subjective: Over night events. Patient remained afebrile overnight. Seen and examined this morning. Patient is using 2 L of oxygen maintaining saturation 93%. Patient having decreased appetite. He denied any chest pain, short of breath, nausea, vomiting, chills, fever and dysuria. This morning patient reported having abdominal distention and pain 7/10 but no nausea or vomiting. Patient reported that his abdomen looks more distended. Review of Systems Constitutional: Reports: see HPI. Objective Last 24 Hrs of Vital Signs/I&O Vital Signs Date Time Temp Pulse Resp B/P B/P Pulse O2 O2 Flow FiO2 Mean Ox Delivery Rate 04/19 0836 84 110/60 04/19 0643 97.6 86 16 123/81 93 Nasal 2.0L Cannula 04/19 0024 97.6 85 18 117/74 96 Nasal 2.0L Cannula 04/19 0000 Nasal 2.0L Cannula 04/18 2004 98.4 93 16 118/60 93 Nasal 2.0L Cannula 04/18 1600 84 114/82 04/18 1347 97.5 86 20 114/80 95 Nasal 2.0L Cannula 04/18 1345 88 116/82 Intake & Output 04/19 1600 04/19 0800 04/19 0000 Intake Total 250 Output Total 0 1 Balance 250 -1 Intake, IV 10 Intake, Oral 240 Number 0 Bowel Movements Output, Stool 1 Output, Urine 0 Patient 129 lb Weight Physical Exam General Appearance: Alert, Oriented X3, Cooperative Skin Temp/Moisture Exam: Warm/Dry Sepsis Skin Exam (color): Normal for Ethnicity HEENT: Atraumatic, PERRLA, EOMI Neck: Supple Cardiovascular: Normal S1, Normal S2 Lungs: Clear to Auscultation Abdomen: Distended and cysts can be felt Neurological: Normal Speech, Normal Tone Extremities: No Edema Assessment/Plan Assessment: Mr. Tijerina is a 66 yo m with a PMH of ADPKD/polycystic liver disease with resultant portal HTN. He also has HTN, HLD, colon ademona, and GERD. He presented with complaints of NVD and worsening abdominal distention. Patient was initially managed in ICU and with stabilization was transferred to telemetry floor for management of following conditions. Now downgraded to general medicine for continuation of care. Hepatic cirrhosis with ascites -s/p multiple paracenteses with ascitic fluid studies show decreasing white count with no evidence of infection -s/p -ve MRCP -continue epogen -continue to hold HTN meds. Malnutrition -Persistent poor appetite. -His malnutrition is multifactorial considering his disease process. -Family agreed to get the J-tube for feeding and he is schedule for surgery on . Depression -psych consult appreciated. -Continue meds, and f/u psych re-evaluation History of PKD, Polycystic liver disease -Unfortunately not a candidate for transplant at the moment. -CT abd/pelvis demonstrated numerous cysts effectively replacing the normal hepatic and bilateral renal parenchyma -Currently on dialysis -Goals of care to be discussed tuesday at the family meeting. CODE STATUS full Code DVT prophylaxis: ALPS Problem List: 1. Ascites 2. Portal hypertension 3. Polycystic kidney disease Pain Ratin Pain Location: abdomen Pain Goal: Pain 4 or less Pain Plan: pain pathway Tomorrow's Labs & Rationales: cbc/bep Celso Molina MD 04/19/17 1145: Attending MD Review Statement Attending Statement Attending MD Statement: examined this patient, discuss w/resident/PA/RANGE MASTER, agreed w/resident/PA/RANGE MASTER, reviewed EMR data (avail) Attending Assessment/Plan: 67M PMH polycystic kidney and liver disease, portal HTN, HTN, HLD, umbilical hernia repair, colon ademona, GERD, admitted initially to ICU with sepsis secondary to abdominal peritonitis due to displaced Pleurex catheter into the abdomen, with cultures growing E.coli and Pseudomonas, completed course of Ceftazidime, now on hemodialysis, with decompensated cirrhosis requiring weekly paracentesis, unable to eat due to compression and mass effect of fluid and cysts, with course complicated by two episodes of SVT as well as unstageable coccyx ulcer, now hemodynamically stable. Patient was unable to tolerate NG tube 2/. Complains of 7/10 abdominal pain today. Appears sleepy but responsive. Plan at this point is to go forward with surgical J-tube placement. Will coordinate with surgery and IR regarding timing of paracentesis pre-operatively. Plan - Continue on general medicine - Follow surgery recommendations - Monitor off antibiotics - Follow nephrology, cardiology, ID, wound care recommendations - Continue Verapamil for SVT - Continue gentle hydration as necessary - Monitor electrolytes - DVT PPx
[2017-04-19 12:13] VITALS: BP 84/60
--- NOTE | 2017-04-19 14:21 | PN- General Surgery ---
Subjective Subjective: feeling stable. he wants to go ahead with feeding tube. Objective Vital Signs and I&Os Vital Signs Date Time Temp Pulse Resp B/P B/P Pulse O2 O2 Flow FiO2 Mean Ox Delivery Rate 04/19 1213 97.3 78 20 84/60 93 Nasal Cannula 04/19 0836 84 110/60 04/19 0643 97.6 86 16 123/81 93 Nasal 2.0L Cannula 04/19 0024 97.6 85 18 117/74 96 Nasal 2.0L Cannula 04/19 0000 Nasal 2.0L Cannula 04/18 2004 98.4 93 16 118/60 93 Nasal 2.0L Cannula 04/18 1600 84 114/82 Intake & Output 04/19 1600 04/19 0804/19 0000 04/18 0000 Intake Total 250 240 240 410 Output Total 0 1 200 30 Balance 250 -1 40 240 380 Intake, IV 10 10 Intake, Oral 240 240 240 400 Number 0 1 0 Bowel Movements Output, Stool 1 Output, Urine 0 200 30 Patient 129 lb 131 lb 131 lb Weight Weight Chair scale Measurement Method Physical Exam: gen; emaciated. nad. tired abd; soft, distended, tense ascites. Current Medications: Current Medications Sig/Lola Start time Last Medication Dose Route Stop Time Status Admin Acetaminophen 650 MG .STK-MED ONE 04/19 0549 DC PO 04/19 0550 Acetaminophen 650 MG .STK-MED ONE 04/18 1746 DC PO 04/18 1747 Acetaminophen 650 MG Q4P PRN 04/17 1645 AC 04/19 PO 1142 Benzocaine/Menthol 1 MYLES Q2P PRN 04/03 1100 AC PO Bisacodyl 10 MG ONCE PRN 04/09 1330 AC LA Collagenase 1 BENEDICTO BID 04/02 1100 AC 04/19 TOP 0838 Epoetin Bryan 3,000 UNIT 03/30 1000 AC 04/08 IV 1317 Glycerin 2 SPRAY Q2P PRN 04/01 2045 AC PO Heparin Sodium 5,000 UNIT Q8 03/28 1444 AC 04/19 (Porcine) SC 0551 Morphine Sulfate 2 MG Q4P PRN 04/19 1145 AC IV Morphine Sulfate 2 MG Q4P PRN 04/05 1730 DC 04/19 IV 0836 Multivitamins 1 TAB 1700 03/25 1700 AC 04/18 PO 1751 Omeprazole 40 MG DAILY AC 03/25 1648 AC 04/19 PO 0550 Ondansetron HCl 4 MG Q6P PRN 04/12 0845 AC 04/18 IV 2141 Polyethylene Glycol 17 GM DAILY PRN 04/03 1100 AC 04/06 PO 1850 Senna/Docusate Sodium 1 TAB BID PRN 04/06 1500 AC 04/13 PO 1308 Sevelamer Carbonate 1,600 MG WITH MEALS 03/24 1700 AC 04/19 PO 0836 Verapamil HCl 180 MG DAILY 03/25 0745 AC 04/19 PO 0836 Results Last 48 Hours of Labs: Laboratory Tests 04/19 04/18 04/18 0745 UNK 0600 Chemistry Sodium (137 - 145 mmol/L) 142 141 Cancelled Potassium (3.5 - 5.1 mmol/L) 3.5 3.7 Cancelled Chloride (98 - 107 mmol/L) 99 98 Cancelled Carbon Dioxide (22 - 30 mmol/L) 24 24 Cancelled Anion Gap (5 - 16) 18 H 19 H Cancelled BUN (9 - 20 mg/dL) 41 H 66 H Cancelled Creatinine (0.7 - 1.2 mg/dL) 3.0 H 4.1 H Cancelled Estimated GFR (>60 ml/min) 21 L 15 L BUN/Creatinine Ratio (7 - 25 %) 13.7 16.1 Cancelled Calcium (8.4 - 10.2 mg/dL) 9.7 Hematology CBC w Diff MAN DIFF ORDERED Cancelled WBC (4.8 - 10.8 /CUMM) 12.5 H Cancelled RBC (4.70 - 6.10 /CUMM) 3.61 L Cancelled Hgb (14.0 - 18.0 G/DL) 8.3 L Cancelled Hct (42 - 52 %) 26.9 L Cancelled MCV (80.0 - 94.0 FL) 74.4 L Cancelled MCH (27.0 - 31.0 PG) 23.0 L Cancelled MCHC (33.0 - 37.0 G/DL) 30.9 L Cancelled RDW (11.5 - 14.5 %) 22.6 H Cancelled Plt Count (130 - 400 /CUMM) 263 Cancelled MPV (7.4 - 10.4 FL) 12.1 H Cancelled Segmented Neutrophils (42.2 - 75.2 %) 80 H Band Neutrophils (0.0 - 5.0 %) 7 H Lymphocytes (20.5 - 51.1 %) 11 L Monocytes (1.7 - 9.3 %) 2 Platelet Estimate (ADEQUATE) ADEQUATE Hypochromic-Microcytic 2+ Poikilocytosis 1+ Basophilic Stippling RARE Anisocytosis 1+ Assessment/Plan Assessment/Plan malnutrition in setting of hepatorenal failure. PEG or surgical Gtube not an option given hepatomegaly. plan for feeding jejunostomy tube. Plan for to avoid conflict with hemodialysis timing. Surgery scheduled for 04/21/17 at 1200.
[2017-04-19 16:47] VITALS: BP 100/60
[2017-04-19 20:00] VITALS: BP 102/64
[2017-04-19 23:54] VITALS: BP 92/64
[2017-04-20 04:23] VITALS: BP 88/60
--- NOTE | 2017-04-20 07:25 | PN- Housestaff ---
LeeJonathan 04/20/17 0725: Subjective Follow-up For: Ascites secondary to Portal Hypertension Intermittent Hypotension Depression ESRD on dialysis Moderate protein malnutrition Subjective: No overnight events. Patient remained afebrile overnight. Seen and examined this morning. He is using 2 L of oxygen maintaining saturation 93%. His blood pressure always and lower side in low 90s. Patient reported no appetite and abdominal pain 7/10. His abdomen is distended. Patient denied any chest pain, short of breath, nausea, vomiting, lightheadedness and dysuria. Review of Systems Constitutional: Reports: see HPI. Objective Last 24 Hrs of Vital Signs/I&O Vital Signs Date Time Temp Pulse Resp B/P B/P Pulse O2 O2 Flow FiO2 Mean Ox Delivery Rate 04/20 0423 97.5 79 20 88/60 93 04/20 0000 Nasal 2.0L Cannula 04/19 2354 97.4 74 18 92/64 93 04/19 2000 97.5 72 15 102/64 93 Nasal 2.0L Cannula 04/19 1647 97.6 73 15 100/60 93 Nasal 2.0L Cannula 04/19 1600 Nasal 2.0L Cannula 04/19 1213 97.3 78 20 84/60 93 Nasal Cannula Intake & Output 04/20 1600 04/20 0800 04/20 0000 Intake Total 240 790 Output Total Balance 240 790 Intake, IV 250 Intake, Oral 240 540 Number 0 Bowel Movements Patient 130 lb Weight Physical Exam General Appearance: Alert, Oriented X3, Cooperative Skin Temp/Moisture Exam: Warm/Dry Sepsis Skin Exam (color): Normal for Ethnicity HEENT: Atraumatic, PERRLA, EOMI Neck: Supple Cardiovascular: Normal S1, Normal S2 Lungs: Clear to Auscultation Abdomen: Distended Neurological: Normal Speech, Sensation Intact Extremities: No Edema Assessment/Plan Assessment: Mr. Tijerina is a 66 yo m with a PMH of ADPKD/polycystic liver disease with resultant portal HTN. He also has HTN, HLD, colon ademona, and GERD. He presented with complaints of NVD and worsening abdominal distention. Patient was initially managed in ICU and with stabilization was transferred to telemetry floor for management of following conditions. Now downgraded to general medicine for continuation of care. Hepatic cirrhosis with ascites -s/p multiple paracenteses with ascitic fluid studies show decreasing white count with no evidence of infection -s/p -ve MRCP -continue epogen -continue to hold HTN meds. Moderate protein malnutrition: -Persistent poor appetite. -His malnutrition is multifactorial considering his disease process. -Family agreed to get the J-tube for feeding and he is schedule for surgery on tomorrow. Depression -psych consult appreciated. -continue his home med (pristiq) for depression. History of PKD, Polycystic liver disease -Unfortunately not a candidate for transplant at the moment. -CT abd/pelvis demonstrated numerous cysts effectively replacing the normal hepatic and bilateral renal parenchyma -Currently on dialysis -Goals of care to be discussed tuesday at the family meeting. CODE STATUS full Code DVT prophylaxis: ALPS Problem List: 1. Ascites 2. Portal hypertension 3. Polycystic kidney disease 4. ESRD (end stage renal disease) 5. Malnutrition Pain Ratin Pain Location: abdomen Pain Goal: Pain 4 or less Pain Plan: pain pathway Tomorrow's Labs & Rationales: cbc/bep Celso Molina MD 04/20/17 1139: Attending MD Review Statement Attending Statement Attending MD Statement: examined this patient, discuss w/resident/PA/RESERVE OPERATOR, agreed w/resident/PA/RESERVE OPERATOR, reviewed EMR data (avail) Attending Assessment/Plan: 67M PMH polycystic kidney and liver disease, portal HTN, HTN, HLD, umbilical hernia repair, colon ademona, GERD, admitted initially to ICU with sepsis secondary to abdominal peritonitis due to displaced Pleurex catheter into the abdomen, with cultures growing E.coli and Pseudomonas, completed course of Ceftazidime, now on hemodialysis, with decompensated cirrhosis requiring weekly paracentesis, unable to eat due to compression and mass effect of fluid and cysts, with course complicated by two episodes of SVT as well as unstageable coccyx ulcer, now hemodynamically stable. Patient was unable to tolerate NG tube 2. Plan - Continue on general medicine - NPO after midnight - Central line should be placed in OR for adjustment of sudden changes in BP, particularly with shifting ascites - GI recommendations for perioperative management prior to surgery - Follow surgery recommendations - Monitor off antibiotics - Follow nephrology, cardiology, ID, wound care recommendations - Continue Verapamil for SVT - Continue Pristiq - Continue gentle hydration as necessary - Monitor electrolytes - DVT PPx
--- NOTE | 2017-04-20 09:13 | PN- Nephrology ---
Assessment/Plan Assessment: ESRD. polycystic kidney / liver disease. portal hypertension with ascites. On dialysis now. Encourage po/activity. Will change dialysis bath to 3K. Deejay Conley MD Suggestion: . Subjective Subjective: Pt on dialysis. K 3's. Objective Vital Signs and I&Os M weak NAD 88/60 79 97.5 Lungs clear Cor RRR Abd pos ascites Ext neg edema Results Pertinent Lab Results: Laboratory Tests 04/20 04/19 04/18 0735 0745 UNK Chemistry Sodium (137 - 145 mmol/L) 142 142 141 Potassium (3.5 - 5.1 mmol/L) 4.0 3.5 3.7 Chloride (98 - 107 mmol/L) 99 99 98 Carbon Dioxide (22 - 30 mmol/L) 23 24 24 Anion Gap (5 - 16) 20 H 18 H 19 H BUN (9 - 20 mg/dL) 52 H 41 H 66 H Creatinine (0.7 - 1.2 mg/dL) 3.8 H 3.0 H 4.1 H Estimated GFR (>60 ml/min) 16 L 21 L 15 L BUN/Creatinine Ratio (7 - 25 %) 13.7 13.7 16.1 Calcium (8.4 - 10.2 mg/dL) 9.7 Hematology CBC w Diff Pending MAN DIFF ORDERED WBC (4.8 - 10.8 /CUMM) Pending 12.5 H RBC (4.70 - 6.10 /CUMM) Pending 3.61 L Hgb (14.0 - 18.0 G/DL) Pending 8.3 L Hct (42 - 52 %) Pending 26.9 L MCV (80.0 - 94.0 FL) Pending 74.4 L MCH (27.0 - 31.0 PG) Pending 23.0 L MCHC (33.0 - 37.0 G/DL) Pending 30.9 L RDW (11.5 - 14.5 %) Pending 22.6 H Plt Count (130 - 400 /CUMM) Pending 263 MPV (7.4 - 10.4 FL) Pending 12.1 H Segmented Neutrophils (42.2 - 75.2 %) 80 H Band Neutrophils (0.0 - 5.0 %) 7 H Lymphocytes (20.5 - 51.1 %) 11 L Monocytes (1.7 - 9.3 %) 2 Platelet Estimate (ADEQUATE) ADEQUATE Hypochromic-Microcytic 2+ Poikilocytosis 1+ Basophilic Stippling RARE Anisocytosis 1+ 02/05 0600 Chemistry Sodium Cancelled Potassium Cancelled Chloride Cancelled Carbon Dioxide Cancelled Anion Gap Cancelled BUN Cancelled Creatinine Cancelled BUN/Creatinine Ratio Cancelled Hematology CBC w Diff Cancelled WBC Cancelled RBC Cancelled Hgb Cancelled Hct Cancelled MCV Cancelled MCH Cancelled MCHC Cancelled RDW Cancelled Plt Count Cancelled MPV Cancelled
[2017-04-20 09:22] LABS: HEMATOCRIT 28.5 % (42-52); MEAN CORPUSCULAR HGB CONC 30.5 G/DL (33.0-37.0); MEAN CORPUSCULAR VOLUME 75.3 FL (80.0-94.0); MEAN PLATELET VOLUME 11.2 FL (7.4-10.4); PLATELET COUNT 260 /CUMM (130-400); RBC DISTRIBUTION WIDTH 22.7 % (11.5-14.5); RED BLOOD CELL CT 3.78 /CUMM (4.70-6.10); WHITE BLOOD CELL COUNT 9.1 /CUMM (4.8-10.8)
--- NOTE | 2017-04-20 12:11 | PN- General Surgery ---
Surgical Brief Attending Note Brief Attending Note: feeding tube placement scheduled tomorrow at noon.
[2017-04-20 12:42] VITALS: BP 110/70
[2017-04-20 16:00] VITALS: BP 98/72
--- NOTE | 2017-04-20 17:10 | PN- Psychiatry ---
Assessment/Plan Impression: Desvenlafaxine/Pristiq has been re-started today, after being held since to rule out a possible contribution to hypertension. We will continue to monitor this therapy, but he will need to be on it for as much as 3-4 weeks, to patrol judge efficacy, and whether an increase should be discussed with the patient. He has some suicidal thoughts, mainly passive, but denies plan or intent. This should be monitored every shift. If this worsens, he will need a safety monitor. When the patient is feeling better, we will make an appointment for him at Outpatient Psychiatry for further treatment of anxiety and depression. Suggestion: 1. Continue desvenlaxaine 50 mg PO every 48 hours after hemodialysis, if possible. Currently ordered as Tuesday, Tuesday and Tuesday at 1300. 2. If active suicidal ideation, he will need a safety monitor. We will continue to follow along. Subjective Subjective: Drowsy after hemodialysis, supportive , Nelli, present. Oriented to person, place, day, off by one month, does not know the year. He reports feeling confusion. He endorses feeling that things would be better if he were not alive, but denies intent, and when asked if he had a plan, smiles and says that he does not. He makes little eye contact, but engages in some conversation about his granddaughters, and states that he watched the Superbowl, "But I didn't know what I was looking at." He is anticipating that a feeding tube will be placed tomorrow, and he is worried about that. He denies any feelings of hunger. He told his over the weekend that he wants to get better and get back to being his old self, which is an encouraging change of mood. Review of Systems Constitutional: Reports: weakness. Neurological/Psychological: Reports: anxiety, confusion, depressed. Objective Last 24 Hrs of Vital Signs/I&O Vital Signs Date Time Temp Pulse Resp B/P B/P Pulse O2 O2 Flow FiO2 Mean Ox Delivery Rate 04/20 1600 97.9 94 18 98/72 95 Nasal 2.0L Cannula 04/20 1242 97.4 94 20 110/70 95 Nasal Cannula 04/20 0800 Nasal 2.0L Cannula 04/20 0423 97.5 79 20 88/60 93 04/20 0000 Nasal 2.0L Cannula 04/19 2354 97.4 74 18 92/64 93 04/19 1999 97.5 72 15 102/64 93 Nasal 2.0L Cannula Intake & Output 04/20 1600 04/20 0800 04/20 0000 Intake Total 240 790 Output Total Balance 240 790 Intake, IV 250 Intake, Oral 240 540 Number 0 Bowel Movements Patient 130 lb Weight Physical Exam: Not performed. Physical Exam General Appearance: no apparent distress, awake, comfortable, lethargic, thin Current Medications: Current Medications Sig/Lola Start time Last Medication Dose Route Stop Time Status Admin Acetaminophen 650 MG Q4P PRN 04/17 1645 AC 04/19 PO 1142 Benzocaine/Menthol 1 MYLES Q2P PRN 04/03 1100 AC PO Bisacodyl 10 MG ONCE PRN 04/09 1330 AC VT Collagenase 1 BENEDICTO BID 04/02 1100 AC 04/20 TOP 0745 Desvenlafaxine 50 MG MoWeFr@1300 04/20 1300 AC 04/20 Succinate PO 1252 Epoetin Bryan 3,000 UNIT 03/30 1000 AC 04/08 IV 1317 Glycerin 2 SPRAY Q2P PRN 04/01 2045 AC PO Heparin Sodium 5,000 UNIT Q8 03/28 1444 AC 04/20 (Porcine) SC 1421 Morphine Sulfate 2 MG Q4P PRN 04/19 1145 AC 04/20 IV 1252 Multivitamins 1 TAB 1700 03/25 1700 AC 04/19 PO 1720 Omeprazole 40 MG DAILY AC 03/25 1648 AC 04/20 PO 0536 Ondansetron HCl 4 MG Q6P PRN 04/12 0845 AC 04/18 IV 2141 Polyethylene Glycol 17 GM DAILY PRN 04/03 1100 AC 04/06 PO 1850 Senna/Docusate Sodium 1 TAB BID PRN 04/06 1500 AC 04/13 PO 1308 Sevelamer Carbonate 1,600 MG WITH MEALS 03/24 1700 AC 04/20 PO 1252 Verapamil HCl 180 MG DAILY 03/25 0745 AC 04/19 PO 0836 Results Last 24 Hrs of Labs/Mics: Laboratory Tests 04/20 04/20 0810 0735 Chemistry Sodium (137 - 145 mmol/L) 142 Potassium (3.5 - 5.1 mmol/L) 4.0 Chloride (98 - 107 mmol/L) 99 Carbon Dioxide (22 - 30 mmol/L) 23 Anion Gap (5 - 16) 20 H BUN (9 - 20 mg/dL) 52 H Creatinine (0.7 - 1.2 mg/dL) 3.8 H Estimated GFR (>60 ml/min) 16 L BUN/Creatinine Ratio (7 - 25 %) 13.7 Hematology CBC w Diff MAN DIFF ORDERED WBC (4.8 - 10.8 /CUMM) 9.1 RBC (4.70 - 6.10 /CUMM) 3.78 L Hgb (14.0 - 18.0 G/DL) 8.7 L Hct (42 - 52 %) 28.5 L MCV (80.0 - 94.0 FL) 75.3 L MCH (27.0 - 31.0 PG) 23.0 L MCHC (33.0 - 37.0 G/DL) 30.5 L RDW (11.5 - 14.5 %) 22.7 H Plt Count (130 - 400 /CUMM) 260 MPV (7.4 - 10.4 FL) 11.2 H Segmented Neutrophils (42.2 - 75.2 %) 82 H Band Neutrophils (0.0 - 5.0 %) 1 Lymphocytes (20.5 - 51.1 %) 11 L Monocytes (1.7 - 9.3 %) 5 Basophils (0.0 - 2.0 %) 1 Platelet Estimate (ADEQUATE) ADEQUATE Hypochromic-Microcytic 3+ Poikilocytosis 3+ Anisocytosis 2+ Microcytic Cells 2+ Ovalocytes 1+ Schistocytes Serology Hep Bs Antigen (NONREACTIVE) NONREACTIVE Hep Bs Antibody (NONREACTIVE) NONREACTIVE
[2017-04-20 22:33] VITALS: BP 122/70
[2017-04-21 02:10] VITALS: BP 117/71
[2017-04-21 06:59] VITALS: BP 113/78
--- NOTE | 2017-04-21 07:14 | PN- Housestaff ---
LeeArabi 04/21/17 0714: Subjective Follow-up For: Ascites secondary to Portal Hypertension Intermittent Hypotension Depression ESRD on dialysis Moderate protein malnutrition Subjective: No overnight events. Patient remained afebrile overnight. Seen and examined this morning. Patient denied any chest pain, short of breath, nausea, vomiting, chills, fever and dysuria. He is using 2 units of oxygen maintaining saturation 92%. Patient is nothing by mouth and he will go for J-tube placement today. Patient needs central venous line and also paracentesis before J-tube placement. Patient reported weakness and abdominal distention with pain 08/21. Review of Systems Constitutional: Reports: weakness. EENTM: Reports: no symptoms. Cardiovascular: Reports: no symptoms. Respiratory: Reports: no symptoms. Gastrointestinal: Reports: abdominal pain, distention. Genitourinary: Reports: no symptoms. Musculoskeletal: Reports: no symptoms. Neurological/Psychological: Reports: no symptoms. Objective Last 24 Hrs of Vital Signs/I&O Vital Signs Date Time Temp Pulse Resp B/P B/P Pulse O2 O2 Flow FiO2 Mean Ox Delivery Rate 04/21 0659 97.7 93 18 113/78 92 Nasal 2.0L Cannula 04/21 0210 97.8 93 18 117/71 93 Nasal 2.0L Cannula 04/21 0000 Nasal 2.0L Cannula 04/20 2233 98.3 96 20 122/70 94 Nasal 2.0L Cannula 04/20 1600 97.9 94 18 98/72 95 Nasal 2.0L Cannula 04/20 1242 97.4 94 20 110/70 95 Nasal Cannula Intake & Output 04/21 1600 04/21 0800 04/21 0000 Intake Total 0 240 Output Total Balance 0 240 Intake, Oral 0 240 Output, Urine Patient 129 lb Weight Weight Chair scale Measurement Method Physical Exam General Appearance: Alert, Cooperative Skin Temp/Moisture Exam: Warm/Dry Sepsis Skin Exam (color): Normal for Ethnicity HEENT: Atraumatic, PERRLA, EOMI Neck: Supple Cardiovascular: Normal S1, Normal S2 Lungs: Clear to Auscultation, Tunneled catheter right chest Abdomen: Distended Neurological: Normal Speech, Sensation Intact Extremities: No Edema Assessment/Plan Assessment: Mr. Tjierina is a 66 yo m with a PMH of ADPKD/polycystic liver disease with resultant portal HTN. He also has HTN, HLD, colon ademona, and GERD. He presented with complaints of NVD and worsening abdominal distention. Patient was initially managed in ICU and with stabilization was transferred to telemetry floor for management of following conditions. Now downgraded to general medicine for continuation of care. Hepatic cirrhosis with ascites -s/p multiple paracenteses with ascitic fluid studies show decreasing white count with no evidence of infection -s/p -ve MRCP -continue epogen -continue to hold HTN meds. Moderate protein malnutrition: -Persistent poor appetite. -His malnutrition is multifactorial considering his disease process. -Family agreed to get the J-tube for feeding and he is schedule for surgery today. Depression -psych consult appreciated. -continue his home med (pristiq) for depression. History of PKD, Polycystic liver disease -Unfortunately not a candidate for transplant at the moment. -CT abd/pelvis demonstrated numerous cysts effectively replacing the normal hepatic and bilateral renal parenchyma -Currently on dialysis. CODE STATUS full Code DVT prophylaxis: ALPS Problem List: 1. ESRD (end stage renal disease) 2. Malnutrition 3. Ascites 4. Portal hypertension 5. Polycystic kidney disease Pain Ratin Pain Location: abdomen Pain Goal: Pain 4 or less Pain Plan: pain pathway Tomorrow's Labs & Rationales: cbc/bep Celso Molina MD 04/21/17 1312: Attending MD Review Statement Attending Statement Attending MD Statement: examined this patient, discuss w/resident/PA/SURGICAL TERRITORY MANAGER, agreed w/resident/PA/SURGICAL TERRITORY MANAGER, reviewed EMR data (avail) Attending Assessment/Plan: 67M PMH polycystic kidney and liver disease, portal HTN, HTN, HLD, umbilical hernia repair, colon ademona, GERD, admitted initially to ICU with sepsis secondary to abdominal peritonitis due to displaced Pleurex catheter into the abdomen, with cultures growing E.coli and Pseudomonas, completed course of Ceftazidime, now on hemodialysis, with decompensated cirrhosis requiring weekly paracentesis, unable to eat due to compression and mass effect of fluid and cysts, with course complicated by two episodes of SVT as well as unstageable coccyx ulcer, now hemodynamically stable. Patient was unable to tolerate NG tube 04/14. Plan - Continue on general medicine - Give albumin jordy-operatively - Central line should be placed in OR for adjustment of sudden changes in BP, particularly with shifting ascites - GI recommendations for perioperative management prior to surgery - Follow surgery recommendations - Monitor off antibiotics - Follow nephrology, cardiology, ID, wound care recommendations - Continue Verapamil for SVT - Continue Pristiq - Continue gentle hydration as necessary - Monitor electrolytes - DVT PPx
[2017-04-21 08:20] LABS: ABSOLUTE BASOPHIL COUNT 0 /CUMM (0.0-0.2); ABSOLUTE EOSINOPHIL COUNT 0 /CUMM (0.0-0.7); ABSOLUTE GRANULOCYTE CT 7.1 /CUMM (1.4-6.5); ABSOLUTE LYMPH COUNT 1.1 /CUMM (1.2-3.4); BASOPHIL % 0.1 % (0.0-2.0); EOSINOPHIL % 0.1 % (0-5); HEMATOCRIT 27.5 % (42-52); MEAN CORPUSCULAR HGB 23.5 PG (27.0-31.0); MEAN CORPUSCULAR HGB CONC 30.9 G/DL (33.0-37.0); MEAN PLATELET VOLUME 10.9 FL (7.4-10.4); PLATELET COUNT 241 /CUMM (130-400); RBC DISTRIBUTION WIDTH 24.1 % (11.5-14.5); RED BLOOD CELL CT 3.62 /CUMM (4.70-6.10); WHITE BLOOD CELL COUNT 9.2 /CUMM (4.8-10.8)
[2017-04-21 11:58] VITALS: BP 100/76
--- NOTE | 2017-04-21 16:09 | Operative Report ---
Operative/Inv Procedure Report Surgery Date: 04/21/17 Name of Procedure: 1. Feeding jejunostomy tube 2. Lysis adhesions 3. Drainage peritoneal abscess 4. Ultrasound-guided left axillary central venous catheter placement Pre-Operative Diagnosis: Malnutrition Post-Operative Diagnosis: same Estimated Blood Loss: 50ml to 100ml Surgeon/Spray Gun Striper: Bharath Robles MD/RADHA Shipley Anesthesia: general endotracheal tube Implants: Clarke crain j tube Microbiology: peritoneal abscess fluid Condition: critical Operative Indication: 67yo male with hepatorenal syndrome from polycystic disease. He has worsening malnutrition. Operative/Procedure Note Note: patient was brought to the operative laid supine. Gen. anesthesia was obtained and his abdomen was prepped and draped. Skin in the supraumbilical region was incised sharply after local anesthesia was instilled. We dissected down to the fascia with cautery and incised it with cautery. The peritoneum was entered sharply. Ascitic fluid was evacuated with a pool tip suction. Approximately 5 L of clear ascites was evacuated. The abdomen was then explored. Visualization was difficult due to the severe hepatomegaly. Furthermore the entire small bowel was encased in chronic inflammatory adhesions, likely related to his episode of bacterial peritonitis. There is no way around dissecting all the bowel loops as I couldn't elucidate which was proximal or distal. I spent about 1 hour of lysis of adhesions. Every bowel loop was encased in adhesions. There are subacute in nature bloody and many of which could be finger fractured. We encountered 3 separate interloop abscesses. A specimen sent for culture. All 3 were evacuated and sharply lysed. We eventually could run the small bowel from the terminal ileum to the ligament of Treitz. Then chose a proximal loop that could come to the anterior abdominal wall for a jejunostomy. A pursestring of 3 -0 silk was placed and enterotomy performed. The tube was placed into the bowel and cinched down. In a Witzel fashion the tube was imbricated into the small bowel. A stab incision in the left mid abdomen was then created and the catheter brought up through the incision. The catheter was secured to peritoneum with 3-0 Vicryl sutures. The catheter was attached the skin with 2-0 nylon. Perineal cavity was then suction irrigated normal saline. The fascia was closed with running 0 Maxon suture. Skin was closed with irina. Patient was critically ill throughout the case with hypotension requiring Mike-Synephrine drip. After sterile dressings were applied I then prepped his left chest. Using ultrasound guidance, central venous cath was placed into the left axillary vein. The needle was placed into the vein and guidewire placed. The tract was dilated and triple lumen catheter placed to 20 cm. It was sutured to the skin with silk sutures and a sterile dressing applied. Findings: severe adhesive disease, likley from peritonititis. Three small residual 1ml pockets of purulence. Discharge Disposition: Critical Care Unit
[2017-04-21 16:30] VITALS: BP 70/40
--- NOTE | 2017-04-21 16:39 | RADIOLOGY REPORT ---
EXAMINATION: XR PORTABLE CHEST CLINICAL INFORMATION: Status post central line placement. COMPARISON: Chest done on 04/12/2017. TECHNIQUE: Portable frontal view of the chest was obtained. FINDINGS: Interval placement of a left subclavian central catheter identified, the tip is projecting at the cavoatrial junction. There is no evidence of any left-sided pneumothorax. Bilateral [id number]-qz-yqzds pleural effusions are noted. Bilateral low lung volume is seen. Diffuse haziness is noted throughout both aerated lung castellanos with features suggestive of compression atelectasis, infiltrate at both lung bases. There is a right-sided central line present, tip projecting at the cavoatrial junction, unchanged. The tip of the endotracheal tube is located approximately 3 cm above the level of the holley. When compared to prior study, the size of the effusion appears to have increased. Diffuse haziness involving both lung castellanos appears new and may represent changes secondary to effusion. IMPRESSION: 1. A new left subclavian central catheter is present. The tip is projecting at the cavoatrial junction. There is no left-sided pneumothorax seen. 2. Interval placement of endotracheal tube present. The tip is seen projecting approximately 3 cm above the level of the holley. 3. Bilateral jrxsgbcs-[id number]-izlac pleural effusions and bilateral diffuse haziness within the lung castellanos noted appear new since prior study.
--- NOTE | 2017-04-21 16:55 | PN- General Surgery ---
See Addendum Subjective Subjective: postop check: Awake and alert, intubated Objective Vital Signs and I&Os Vital Signs Date Time Temp Pulse Resp B/P B/P Pulse O2 O2 Flow FiO2 Mean Ox Delivery Rate 04/21 1535 100 04/21 1158 97.7 91 16 100/76 95 Nasal Cannula 04/21 0659 97.7 93 18 113/78 92 Nasal 2.0L Cannula 04/21 0210 97.8 93 18 117/71 93 Nasal 2.0L Cannula 04/21 0000 Nasal 2.0L Cannula 04/20 2233 98.3 96 20 122/70 94 Nasal 2.0L Cannula Intake & Output 04/21 1600 04/21 0800 04/21 0000 04/20 1600 04/20 0000 Intake Total 0 240 125 240 790 Output Total Balance 0 240 125 240 790 Intake, IV 250 Intake, Oral 0 240 125 240 540 Number 0 Bowel Movements Output, Urine Patient 129 lb 130 lb Weight Weight Chair scale Measurement Method Physical Exam: Cachectic male, awake and alert, intubated, no respiratory distress Abdomen: Dressings clean dry and intact J-tube in place Assessment/Plan Assessment/Plan Postop day 0 status post open extensive lysis of adhesion, drainage of ascites approximately 4.5 L, drainage of small intra-abdominal abscess, placement of J- tube Nothing by mouth Start using J-tube tomorrow Intra-abdominal abscess noted, possibly from previous Pleurx catheter and source of patient's bacterial peritonitis, intraoperative culture obtained, we'll defer to ID for antibiotics if necessary Dressing change postop day 2. reinforce when necessary, expecting drainage of ascites through incision and around DARIO site Recommend CBC this evening and transfuse as needed, concern for baseline anemia combined with acute blood loss anemia from surgery Critical care per primary team , watch for fluid shifts.
[2017-04-21 17:49] LABS: ABSOLUTE BASOPHIL COUNT 0 /CUMM (0.0-0.2); ABSOLUTE EOSINOPHIL COUNT 0 /CUMM (0.0-0.7); BASOPHIL % 0 % (0.0-2.0)
[2017-04-21 17:57] LABS: ABSOLUTE GRANULOCYTE CT 14.7 /CUMM (1.4-6.5); ABSOLUTE LYMPH COUNT 0.7 /CUMM (1.2-3.4); ABSOLUTE MONOCYTE COUNT 0.9 /CUMM (0.10-0.60); EOSINOPHIL % 0.1 % (0-5); HEMATOCRIT 23.9 % (42-52); MEAN CORPUSCULAR HGB 22.3 PG (27.0-31.0); MEAN CORPUSCULAR HGB CONC 28.9 G/DL (33.0-37.0); MEAN CORPUSCULAR VOLUME 77.1 FL (80.0-94.0); MEAN PLATELET VOLUME 10.2 FL (7.4-10.4); PLATELET COUNT 294 /CUMM (130-400); RBC DISTRIBUTION WIDTH 24.1 % (11.5-14.5); RED BLOOD CELL CT 3.11 /CUMM (4.70-6.10)
[2017-04-21 17:59] LABS: WHITE BLOOD CELL COUNT 16.4 /CUMM (4.8-10.8)
[2017-04-21 18:12] LABS: GRANULOCYTE % 89.9 % (42.2-75.2)
--- NOTE | 2017-04-21 21:22 | Acceptance Note - Resident/Int ---
Subjective Background: Mr. Tijerina is a 66 yo m with a PMH of PKD, Polycystic liver disease, portal HTN , HTN, HLD, umbilical hernia repair, colon ademona, GERD presented to the ED with NVD with progressively worsening abdominal distention from ascitic fluid. He was initially managed in the ICU for a pleural effusion, sepsis and peritonitis complicated by a pluerx catheter that miigrated to his abdominal cavity and SVT for which he was placed on metoprolol. He had ESRD and is not a transplant candidate and is on dialysis MWF. On account of his poor nutrition and by mouth intake, he was taken for laparoscopy with feeding jejunostomy tube placement today. Intraoperatively he was found to have numerous adhesions which were lysed with moderate amounts of blood loss. He also had drainage of a peritoneal abscess with cultures sent to the lab. A total of 4750 mL of ascites was drained and the patient was hypotensive intraoperatively and started on Mike-Synephrine and Levophed. He was subsequently transferred to the ICU on account of postoperative hypotension. His blood pressures on arrival on the ICU was 79/55 Hg. He is intubated and sedated and is unable to offer complaints. Review of Systems Constitutional: Reports: see HPI. Objective Last 24 Hrs of Vital Signs/I&O Vital Signs Date Time Temp Pulse Resp B/P B/P Pulse O2 O2 Flow FiO2 Mean Ox Delivery Rate 04/21 1926 98.0 98 14 90/66 04/21 1922 50 04/21 1738 98.2 84 15 79/55 04/21 1535 100 04/21 1158 97.7 91 16 100/76 95 Nasal Cannula 04/21 0800 Nasal 2.0L Cannula 04/21 0659 97.7 93 18 113/78 92 Nasal 2.0L Cannula 04/21 0210 97.8 93 18 117/71 93 Nasal 2.0L Cannula 04/21 0000 Nasal 2.0L Cannula 04/20 2233 98.3 96 20 122/70 94 Nasal 2.0L Cannula Intake & Output 04/21 1600 04/21 0800 04/21 0000 Intake Total 0 240 Output Total Balance 0 240 Intake, Oral 0 240 Output, Urine Patient 129 lb Weight Weight Chair scale Measurement Method Physical Exam General Appearance: No Acute Distress, Thin Skin: No Rashes, No Breakdown Skin Temp/Moisture Exam: Warm/Dry Sepsis Skin Exam (color): Normal for Ethnicity HEENT: Atraumatic, PERRLA, EOMI, intubated Neck: Supple, No JVD Lymphatic: Cervical nl Cardiovascular: Regular Rate, Normal S1, Normal S2, No Murmurs Lungs: Clear to Auscultation, Normal Air Movement Abdomen: Soft, hepatomegaly from polycystic liver, abdomen is less distended with no palpable ascites Neurological: Normal Tone, sedated Extremities: No Edema Current Medications: Current Medications Sig/Lola Start time Last Medication Dose Route Stop Time Status Admin Acetaminophen 650 MG Q4P PRN 04/17 1645 AC 04/19 PO 1142 Albumin Human 25 GM ONCE ONE 04/21 2000 DC IV 04/21 2000 Albumin Human 75 GM ONE TIME ONE 04/21 1300 CAN IV 04/21 1301 Albumin Human 37.5 GM ONCE ONE 04/21 1300 DC IV 04/21 1301 Benzocaine/Menthol 1 MYLES Q2P PRN 04/03 1100 AC PO Bisacodyl 10 MG ONCE PRN 04/09 1330 AC ID Collagenase 1 BENEDICTO BID 04/02 1100 AC 04/21 TOP 1122 Desvenlafaxine 50 MG MoWeFr@1300 04/20 1300 AC 04/20 Succinate PO 1252 Dextrose 25 GM ONCE ONE 04/21 1830 DC 04/21 IV 04/21 1831 1834 Dextrose/Sodium 1,000 ML Q13H 04/21 1845 AC 04/21 Chloride IV 1927 Epoetin Bryan 3,000 UNIT 03/30 1000 AC 04/08 IV 1317 Fentanyl Citrate 200 MCG .STK-MED ONE 04/21 1147 DC IM 04/21 1148 Glycerin 2 SPRAY Q2P PRN 04/01 2045 AC PO Heparin Sodium 5,000 UNIT Q8 03/28 1444 AC 04/20 (Porcine) SC 2117 Midazolam HCl 2 MG .STK-MED ONE 04/21 1147 DC IM 04/21 1148 Morphine Sulfate 2 MG Q4P PRN 04/19 1145 AC 04/20 IV 1808 Multivitamins 1 TAB 1700 03/25 1700 AC 04/20 PO 1801 Norepinephrine 4 MG Q24H 04/21 1645 AC 04/21 Sodium Chloride 250 ML IV 1927 Omeprazole 40 MG DAILY AC 03/25 1648 AC 04/20 PO 0536 Ondansetron HCl 4 MG Q6P PRN 04/12 0845 AC 04/18 IV 2141 Phenylephrine HCl 40 MG Q24H 04/21 2014 AC Dextrose/Water 250 ML IV Polyethylene Glycol 17 GM DAILY PRN 04/03 1100 AC 04/06 PO 1850 Senna/Docusate Sodium 1 TAB BID PRN 04/06 1500 AC 04/13 PO 1308 Sevelamer Carbonate 1,600 MG WITH MEALS 03/24 1700 AC 04/20 PO 1252 Sodium Chloride 500 ML BOLUS ONE 04/21 1800 DC 04/21 IV 04/21 1859 1834 Sodium Chloride 500 ML BOLUS ONE 04/21 1645 DC 04/21 IV 04/21 1744 1738 Vasopressin 40 UNITS Q16H 04/21 170 AC 04/21 Sodium Chloride 100 ML IV 1738 Verapamil HCl 180 MG DAILY 03/25 0745 AC 04/19 PO 0836 Last 24 Hrs of Lab/Clarke Results Last 24 Hrs of Labs/Mics: Laboratory Tests 04/21/17 171: Anion Gap 20 H, Estimated GFR 20 L, Glucose 40 *L, Calcium 8.6, Phosphorus 6.1 H, Magnesium 1.7, Total Bilirubin 3.9 H, AST 195 H, ALT 62, Albumin 3.0 L, CBC w Diff NO MAN DIFF REQ, RBC 3.11 L, MCV 77.1 L, MCH 22.3 L, MCHC 28.9 L, RDW 24.1 H, MPV 10.2, Gran % 89.9 H, Lymphocytes % 4.2 L, Monocytes % 5.8, Eosinophils % 0.1, Basophils % 0, Absolute Granulocytes 14.7 H, Absolute Lymphocytes 0.7 L, Absolute Monocytes 0.9 H, Absolute Eosinophils 0, Absolute Basophils 0 04/21/17 171: Sodium Cancelled, Potassium Cancelled, Chloride Cancelled, Carbon Dioxide Cancelled, Anion Gap Cancelled, BUN Cancelled, Creatinine Cancelled, Glucose Cancelled, Calcium Cancelled, Phosphorus Cancelled, Magnesium Cancelled, Total Bilirubin Cancelled, AST Cancelled, ALT Cancelled, Albumin Cancelled 04/21/17 0710: Anion Gap 21 H, Estimated GFR 24 L, BUN/Creatinine Ratio 13.3, CBC w Diff NO MAN DIFF REQ, RBC 3.62 L, MCV 76.0 L, MCH 23.5 L, MCHC 30.9 L, RDW 24.1 H, MPV 10.9 H, Gran % 77.0 H, Lymphocytes % 12.4 L, Monocytes % 10.4 H, Eosinophils % 0.1, Basophils % 0.1, Absolute Granulocytes 7.1 H, Absolute Lymphocytes 1.1 L, Absolute Monocytes 1.0 H, Absolute Eosinophils 0, Absolute Basophils 0 Microbiology 04/21 1630 UPPER RESP: Surveillance Culture - RECD 04/21 1630 GI: Surveillance Culture - RECD 04/21 1325 TRUNK/O.R.: Culture & Sensitivity - RECD 04/21 1325 TRUNK/O.R.: Gram Stain - RECD Assessment/Plan Assessment: Mr. Tijerina is a 66 yo m with a PMH of PKD, Polycystic liver disease, portal HTN , HTN, HLD, umbilical hernia repair, colon ademona, GERD presented to the ED with NVD with progressively worsening abdominal distention from ascitic fluid. He was initially managed in the ICU for a pleural effusion, sepsis and peritonitis complicated by a pluerx catheter that migrated to his abdominal cavity, and SVT for which he was placed on metoprolol. He had ESRD from his polycystic kidney disease and was deemed not to be a transplant candidate. He is on hemodialysis MWF. On account of his poor nutrition and by mouth intake he was taken for laparoscopy with feeding jejunostomy tube placement today. Intraoperatively he was found to have numerous adhesions which were lysed with moderate amounts of blood loss. He also had drainage of a peritoneal abscess with cultures sent to the lab. A total of 4750 mL of ascites was drained with 37.5 g of albumin (150 mls) replacement given. He was hypotensive intraoperatively and started on Mike- Synephrine and Levophed. He was subsequently transferred to the ICU intubated and on the ventilator on account of postoperative hypotension. He has received two 500 mL boluses of normal saline and was started on levophed and vasopressin, but his blood pressure remains low in the 80/40 mmhg range. Plan 1. Postoperative hypotension from hypovolemia and fluid shifts * Add neosyneprine and titrate to keep map greater than 65 mmhg * The patient has lost approximately 5 L of ascitic fluid and received 37.5 g of albumin * Would give additional 20 gram albumin tonight and continue albumin 25 G Q 8 hours in the morning if his volume status remains low * Postop CBC check shows postoperative anemia with Hb 6.9 will transfuse 2 PRBC and keep hemoglobin greater than 7 g/dl * ICU bundle and replete electrolytes accordingly * Hold antihypertensive medications-Verapamil * Monitor blood pressure vital signs closely * There is a possibility of peritonitis and sepsis so we will send blood cultures X 2, and urine cultures if patient passes urine * As patient had previous ascitic fluid cultures from this admission growing E- Coli and Pseudomonas, we will start broad spectrum empiric antibiotics with ceftazidime and flagyl * ID consult in the morning * Follow-up postoperative cultures from peritoneal abscess 2. Post operative respiratory failure * ABG now * Continue ventilatory support and adjust settings as needed 3. Hypoglycemia * Patient's blood glucose was 40 mg per DL post op * He received 50% dextrose 1 amp in the ICU * Accu-Cheks every 4 hours * Start D5 normal saline at 75 mL an hour 4. Hepatic cirrhosis with ascites * Patient had drainage of about approximately 5 L of ascitic fluid this afternoon * He will have massive fluid shifts from the ascitic fluid drainage * patient received 37.5 g of albumin intraop. Will give additional 25 gram albumin tonight and continue albumin 25 G Q 8 hours in the morning after blood transfusions if volume status remains low 4. Protein malnutrition * For surgery can start using tube feeds tomorrow 5. Depression * Continue management as per psych * Continue his home med (pristiq) for depression 6. History of PKD, Polycystic liver disease * Unfortunately not a candidate for transplant at the moment. * CT abd/pelvis demonstrated numerous cysts effectively replacing the normal hepatic and bilateral renal parenchyma * Currently on dialysis Tuesday CODE STATUS full Code DVT prophylaxis: ALPS Problem List: 1. Hypotension 2. Anemia 3. Ascites 4. Peritonitis Pain Ratin Pain Location: Abdomen Pain Goal: Pain 4 or less Pain Plan: Morphine when necessary Tomorrow's Labs & Rationales: ICU bundle, CBC for critical ill patient
[2017-04-22] VITALS: BP 78/52
--- NOTE | 2017-04-22 01:06 | Event Note ---
Event Note Event Note: S: informed by the nurse that the patient had a temp of 100.4 orally, and 101.1 of the temporal artery before when a unit of PRBCs was to be given B: Patient was brought to the intensive care unit for an acute drop in H/H and hypotension postoperatively. Is currently on 3 pressors, Mike-Synephrine, levothyroid, vasopressin, and he has finished 1 unit of PRBC. AR: Patient was seen at bedside and his condition appeared to be stable HR: 103, BP 103/74, T 100.4 Ice packs were placed on the patient and his temperature dropped to 99, we will proceed with the next unit of PRBCs while monitoring her closely. This plan was discussed with the nocturnal with Dr. Winchester.
[2017-04-22 04:00] VITALS: BP 96/00
[2017-04-22 06:07] LABS: ABSOLUTE BASOPHIL COUNT 0.1 /CUMM (0.0-0.2); ABSOLUTE EOSINOPHIL COUNT 0.1 /CUMM (0.0-0.7)
[2017-04-22 06:16] LABS: ABSOLUTE GRANULOCYTE CT 15.3 /CUMM (1.4-6.5); ABSOLUTE LYMPH COUNT 1.9 /CUMM (1.2-3.4); ABSOLUTE MONOCYTE COUNT 0.7 /CUMM (0.10-0.60); BASOPHIL % 0.4 % (0.0-2.0); EOSINOPHIL % 0.3 % (0-5); GRANULOCYTE % 84.8 % (42.2-75.2); MEAN CORPUSCULAR VOLUME 79.7 FL (80.0-94.0); MEAN PLATELET VOLUME 11.4 FL (7.4-10.4); RBC DISTRIBUTION WIDTH 20.5 % (11.5-14.5)
[2017-04-22 06:38] LABS: HEMATOCRIT 31.9 % (42-52); MEAN CORPUSCULAR HGB 25.3 PG (27.0-31.0)
--- NOTE | 2017-04-22 06:38 | RADIOLOGY REPORT ---
EXAMINATION: XR PORTABLE CHEST CLINICAL INFORMATION: Intubation. Emesis. Postop. COMPARISON: Chest x-ray April,, 3:50 PM TECHNIQUE: Portable frontal view of the chest was obtained. 6:12 AM FINDINGS: Endotracheal tube catheter approximately 3 cm above the holley. Right IJ catheter tip at the cavoatrial junction. Left PICC line catheter tip at cavoatrial junction. Cardiomediastinal contour normal. No significant central pulmonary vascular congestion. There are bilateral moderate to large pleural effusions with haziness at lung bases. Bibasilar infiltrate and/or atelectasis may be present. The aeration of the lungs is similar to prior chest x-ray. IMPRESSION: 1. Endotracheal tube catheter 3 cm above holley. 2. Right IJ catheter tip at caval atrial junction. 3. Left PICC line catheter tip at caval atrial junction. 4. Continued density at both lung bases due to pleural effusions and possible underlying infiltrate and/or atelectasis
[2017-04-22 06:39] LABS: PLATELET COUNT 201 /CUMM (130-400)
[2017-04-22 06:40] LABS: MEAN CORPUSCULAR HGB CONC 31.8 G/DL (33.0-37.0)
--- NOTE | 2017-04-22 07:48 | Cons- CRCU ---
Danyelle LYONS,[facility] 04/22/17 0747: General Information and HPI Consulting Request Date of Consult: 04/22/17 Requested By: Dr Moreland Reason for Consult: Hypotension Respiratory Distress Source of Information: patient, family Exam Limitations: no limitations History of Present Illness: Mr. Tijerina is a 66 yo m with a PMH of PKD, Polycystic liver disease, portal HTN , HTN, HLD, umbilical hernia repair, colon ademona, GERD presented to the ED with NVD with progressively worsened abdominal distention from ascitic fluid. He was admitted to the initially for catheter associated peritonitis and acute hypoxic respiratory failure. After a long stay in the ICU and stablization of his condition he was downgraded to general medicine floor. Yesterday, he underwent a J tube placement, to optimize his nutrition status, in the OR where he had 5 L of ascitic fluid drained along with lysis of adhesions and drainage of 3 small abscesses. Post procedure he developed hypotension and received phenylephrine. He was difficult to exhubate and hence continued on mechanical ventilation. Due to persistent hypotension, he was brought to the ICU where he subsequently required support of 3 vasopressors. He was given 2 units of pRBC along with albumin and fluid resuscitation with normal saline. Today he was scheduled for dialysis which further dropped his blood pressure, requiring multiple fluid bolus and albumin. He currently remains on 3 pressors. He has an elevated white count and has intermittently been spiking fevers. Allergies/Medications Allergies: Coded Allergies: NO KNOWN ALLERGIES (02/26/15) Home Med List: Furosemide 40 MG TABLET 1 TAB PO Tuesday WATER RETENTION (Reported) Hydrocodone/Acetaminophen ([place] 5-325 Tablet) 5 MG-325 MG TABLET 1-2 TAB PO Q4-6 PRN PRN PAIN Lisinopril (Prinivil) 20 MG TABLET 1 TAB PO DAILY HTN (Reported) Omeprazole 40 MG CAPSULE.DR 1 CAP PO DAILY GI (Reported) Sevelamer Carbonate (Renvela) 800 MG TABLET 1,600 MG PO WITH MEALS kidney Verapamil HCl (Verapamil Sr) 180 MG CAP24H.PEL 1 TAB PO DAILY HTN (Reported) Review of Systems Review of Systems Constitutional: Reports: weakness. Cardiovascular: Denies: chest pain. Respiratory: Reports: no symptoms. GI: Reports: nausea. Musculoskeletal: Reports: no symptoms. Skin: Reports: no symptoms. Past History Travel History Traveled to [place] past 21 day No Medical History Blood Transfusion Hx: No Neurological: Sciatica EENT: NONE Cardiovascular: hypertension, hyperlipidemia Respiratory: NONE Gastrointestinal: INGUINAL HERNIA Hepatic: POLYCYSTIC LIVER ASCITES PLEUREX CATH DRAIN TO R ABD Ascites Renal: POLYCYSTIC KIDNEY Musculoskeletal: NONE Psychiatric: Depression treated with talk therapy in the past, which he did not find helpful. Endocrine: NONE Blood Disorders: NONE Cancer(s): BASAL CELL CARCINOMA DIRECTOR OF PROPERTY MANAGEMENT/Reproductive: NONE Surgical History Surgical History: non-contributory Family History Relations & Conditions If Any: DAUGHTER (Postoperative have Polycystic kidney disease). SON ( has polycystic kidney disease). Relation not specified for: *No pertinent family history Psychosocial History Where Do You Live? Home Smoking Status: Never Smoked ETOH Use: denies use Illicit Drug Use: denies illicit drug use Functional Ability ADLs Independent: dressing, eating, toileting, bathing. Ambulation: independent IADLs Independent: shopping, housework, finances, food prep, telephone, transportation , medication admin. 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 Exam & Diagnostic Data Last 24 Hrs of Vital Signs/I&O Vital Signs Date Time Temp Pulse Resp B/P B/P Pulse O2 O2 Flow FiO2 Mean Ox Delivery Rate / 1101 45 / 0939 101.6 93 26 77/52 02/ 0930 101.6 93 26 77/52 /09 0811 45 02/ 0800 94 Ventilator 45% / 0800 101.6 100 26 79/56 94 Ventilator 45% / 0633 45 02/ 0532 99.6 99 26 87/66 02/ 0400 94 Ventilator 45% / 0400 99.6 100 26 96/00 94 Ventilator 45% 02/ 0343 45 02/ 0227 99.7 02/ 0205 99.7 102 26 114/78 02/09 0135 101.0 02/09 0050 45 02/09 0000 100.4 104 26 78/52 96 Ventilator 45% 02/09 0000 99 Ventilator 45% 02/ 2241 102 14 87/63 02/08 2223 45 02/ 1927 98.0 98 14 90/66 02/08 1922 50 02/08 1738 98.2 84 15 79/55 02/08 1630 100 Ventilator 100% 02/ 1630 98.2 84 15 70/40 100 Ventilator 100% 04/21 1535 100 04/21 1158 97.7 91 16 100/76 95 Nasal Cannula Intake & Output 04/22 1600 04/22 0800 04/22 0000 Intake Total 1932 2761.2 Output Total 100 Balance 1832 2761.2 Intake, Blood 350 350 Product Intake, IV 1582 2411.2 Intake, Oral 0 Output, 100 Emesis Output, Urine 0 Physical Exam General Appearance: awake, cachetic, intubated, mild distress Head: atraumatic, normal appearance Eyes: Bilateral: normal appearance. Respiratory: normal breath sounds, chest non-tender, lungs clear Cardiovascular: systolic murmur Gastrointestinal: soft, non-tender, distention, palpable cystic masses Neurologic/Psych: awake, depressed affect Last 48 Hrs of Labs/Clarke: Laboratory Tests 04/22/17 0535: Anion Gap 21 H, Estimated GFR 19 L, Glucose 68, Calcium 8.5, Phosphorus 3.5, Magnesium 1.5 L, Total Bilirubin 5.9 H, AST 1560 H, ALT 350 H, Albumin 3.0 L, Cortisol AM Sample 25.0 H, CBC w Diff NO MAN DIFF REQ, RBC 4.00 L, MCV 79.7 L, MCH 25.3 L, MCHC 31.8 L, RDW 20.5 H, MPV 11.4 H, Gran % 84.8 H, Lymphocytes % 10.6 L, Monocytes % 3.9, Eosinophils % 0.3, Basophils % 0.4, Absolute Granulocytes 15.3 H, Absolute Lymphocytes 1.9, Absolute Monocytes 0.7 H, Absolute Eosinophils 0.1, Absolute Basophils 0.1 04/22/17 0035: pH 7.37, pCO2 24 L, pO2 85, HCO3 14 L, ABG O2 Sat (Measured) 96.0, P-50 (Temp Corrected) N, Carboxyhemoglobin 1.2 L, O2 Concentration % .45, Respiration Rate 26, O2 Delivery Method VENT, Vent Mode A/C, Expiratory Pressure 5, Tidal Volume 500, Phlebotomy Draw Site RIGHT BRACHIAL 04/21/17 2030: pH 7.29 *L, pCO2 33 L, pO2 114 H, HCO3 16 L, ABG O2 Sat (Measured) 96.0, P-50 (Temp Corrected) N, Carboxyhemoglobin 1.3 L, O2 Concentration % 50%, Temperature 98.2, Respiration Rate 14, O2 Delivery Method ESPRIT VENT, Vent Mode AC, Expiratory Pressure 5, Tidal Volume 500, Phlebotomy Draw Site RIGHT RADIAL 04/21/17 1719: Anion Gap 20 H, Estimated GFR 20 L, Glucose 40 *L, Calcium 8.6, Phosphorus 6.1 H, Magnesium 1.7, Total Bilirubin 3.9 H, AST 195 H, ALT 62, Albumin 3.0 L, CBC w Diff NO MAN DIFF REQ, RBC 3.11 L, MCV 77.1 L, MCH 22.3 L, MCHC 28.9 L, RDW 24.1 H, MPV 10.2, Gran % 89.9 H, Lymphocytes % 4.2 L, Monocytes % 5.8, Eosinophils % 0.1, Basophils % 0, Absolute Granulocytes 14.7 H, Absolute Lymphocytes 0.7 L, Absolute Monocytes 0.9 H, Absolute Eosinophils 0, Absolute Basophils 0 04/21/17 1710: Sodium Cancelled, Potassium Cancelled, Chloride Cancelled, Carbon Dioxide Cancelled, Anion Gap Cancelled, BUN Cancelled, Creatinine Cancelled, Glucose Cancelled, Calcium Cancelled, Phosphorus Cancelled, Magnesium Cancelled, Total Bilirubin Cancelled, AST Cancelled, ALT Cancelled, Albumin Cancelled 04/21/17 0710: Anion Gap 21 H, Estimated GFR 24 L, BUN/Creatinine Ratio 13.3, CBC w Diff NO MAN DIFF REQ, RBC 3.62 L, MCV 76.0 L, MCH 23.5 L, MCHC 30.9 L, RDW 24.1 H, MPV 10.9 H, Gran % 77.0 H, Lymphocytes % 12.4 L, Monocytes % 10.4 H, Eosinophils % 0.1, Basophils % 0.1, Absolute Granulocytes 7.1 H, Absolute Lymphocytes 1.1 L, Absolute Monocytes 1.0 H, Absolute Eosinophils 0, Absolute Basophils 0 Assessment/Plan Impression/Plan: Assessment 1. Hypotension 2. Ascites likely secondary to Portal Hypertension 3. Depression 4. Catheter-associated Peritonitis - resolved 5. Nonsustained SVT - currently resolved 6. Acute Hypoxic Respiratory Failure - resolved 7. SHELBY on CKD - resolved 8. History of Polycystic Kidney and Liver disease Plan: * Currently on three pressors with blood pressure stable in the 110-120 systolics. Will wean off pressors as tolerated. * Per nephrology can give additional fluid after dialysis including 5% albumin to restore intravascular volume. * He has been spiking fevers intermittently. He does have a white count. Could be explained by the intraabdominal abscess that were drained. One time dose of 1g Vancomycin was given. * Started on daily Meropenem 500mg. * Will follow sputum cultures. * If he continues third spacing in his abdomen, there is a risk of his loosening the sutures and he may require paracentesis. * Continue IV Albumin 25mg q8. Can give additional doses if needed. * Continue DesVenlafaxine for depression. * Tigan/Zofran for nausea as needed * He will need to be restarted on his Metoprolol once his blood pressure becomes more stable. * Diet: NPO - intubated and running on 3 pressors. Can start tube feeds once off pressors. * DVT Prophylaxis: * Code: Full Code Problem List: 1. Polycystic kidney disease 2. Polycystic liver disease Consult Acknowledgment - Thank you for your consult request. Merly LYONS,[facility] 04/22/17 0915: Assessment/Plan Impression/Plan: 1. Leukocytosis, despite ceftazidime for Escherichia coli and Pseudomonas peritonitis. 2. SHELBY superimposed on severe polycystic renal disease with liver complications , and intense ascites. Now on hemodialysis. The patient is s/p repeat paracentesis 04/07/17, noting 2.5 L of fluid was removed with significant residual ascites. 3. Resolved respiratory failure. 4. Recent diarrhea, now improved. 5. Brief episodes of nonsustained supraventricular tachycardia, cardiology following. 6. Hyperkalemia. 7. Microcytic anemia, without evidence of active bleeding. 8. Intermittent hypotension. 9. Malnutrition with poor by mouth intake. Recommendations: * Monitor off antibiotics as per ID. * Encourage oral intake. * Continue IV albumin, Neupogen and Renvela as per nephrology. * Morphine as needed for discomfort. * Out of bed to chair/increase activity. * DVT prophylaxis at all times. * Continue telemetry monitoring. * Continue Zofran and Tigan for nausea. * Appreciate all consultants input. * Discussed plan of care with housestaff. I asked them to contact me should the patient's condition change or deteriorate. * Downgrade to telemetry. Other Findings/Comments: I have personally seen and examined the patient and agree with the resident's assessment and plan as detailed above. I have reviewed the patient's chart and have provided the housestaff with instructions, once again as detailed above. I asked him to contact me should the patient's condition change or deteriorate. Consult Acknowledgment - Thank you for your consult request.
[2017-04-22 08:00] VITALS: BP 79/56
--- NOTE | 2017-04-22 09:37 | PN- General Surgery ---
Surgical Brief Attending Note Brief Attending Note: Patient remains critically ill on 3 pressors. Currently is under dialysis with temporary need for increase in his pressors. He is awake on the vent answers simple questions. His abdomen is becoming more distended with ascitic fluid. Prognosis is guarded after lysis of adhesions and placement of feeding jejunostomy tube. His bowel function is not adequate to start tube feeds. Would hold for now. If his ascites becomes tense, he may need paracentesis.
--- NOTE | 2017-04-22 11:26 | PN- Infect Dx ---
Subjective Subjective: MAXIMUM TEMPERATURE 101.6. His blood pressure has decreased postoperatively and he is now on 3 pressors. Objective Last 24 Hrs of Vital Signs/I&O Vital Signs Date Time Temp Pulse Resp B/P B/P Pulse O2 O2 Flow FiO2 Mean Ox Delivery Rate 04/22 1101 45 04/22 0939 101.6 93 26 77/52 / 0930 101.6 93 26 77/52 / 0811 45 04/22 0633 45 04/22 0532 99.6 99 26 87/66 04/22 0400 94 Ventilator 45% 04/22 0400 99.6 100 26 96/00 94 Ventilator 45% 04/22 0343 45 04/22 0227 99.7 / 0205 99.7 102 26 114/78 / 0135 101.0 02/ 0050 45 02/ 0000 100.4 104 26 78/52 96 Ventilator 45% / 0000 99 Ventilator 45% 04/21 2241 102 14 87/63 04/21 2223 45 04/21 1927 98.0 98 14 90/66 08 1922 50 02/08 1738 98.2 84 15 79/55 02/08 1630 100 Ventilator 100% 04/21 1630 98.2 84 15 70/40 100 Ventilator 100% 04/21 1535 100 /08 1158 97.7 91 16 100/76 95 Nasal Cannula Intake & Output 04/22 1600 04/22 0800 02/09 0000 Intake Total 1932 2761.2 Output Total 100 Balance 1832 2761.2 Intake, Blood 350 350 Product Intake, IV 1582 2411.2 Intake, Oral 0 Output, 100 Emesis Output, Urine 0 Physical Exam Other Physical Findings: He is awake and alert, currently undergoing dialysis, appearing quite cachectic on the ventilator Neck dialysis catheter in the right IJ with no inflammation at the site; triple- lumen catheter in the left subclavian with no inflammation at the site Lungs are clear Heart regular rhythm with no murmur Abdomen is distended, tender on palpation, with positive bowel sounds Extremities no cyanosis, clubbing or edema Results Last 24 Hours of Lab Results: Laboratory Tests 04/22 04/22 0535 0035 Blood Gas pH (7.35 - 7.45 PH) 7.37 pCO2 (35 - 45 TORR) 24 L pO2 (80 - 100 TORR) 85 HCO3 (21 - 28 MEQ/L) 14 L ABG O2 Sat (Measured) (>96.0 %) 96.0 P-50 (Temp Corrected) N Carboxyhemoglobin (1.5 - 5.0 %) 1.2 L O2 Concentration % .45 Respiration Rate (BPM) 26 O2 Delivery Method VENT Vent Mode A/C Expiratory Pressure (CMH2O/P) 5 Tidal Volume (CC) 500 Chemistry Sodium (137 - 145 mmol/L) 144 Potassium (3.5 - 5.1 mmol/L) 3.6 Chloride (98 - 107 mmol/L) 106 Carbon Dioxide (22 - 30 mmol/L) 18 L Anion Gap (5 - 16) 21 H BUN (9 - 20 mg/dL) 42 H Creatinine (0.7 - 1.2 mg/dL) 3.2 H Estimated GFR (>60 ml/min) 19 L Glucose (65 - 99 mg/dL) 68 Calcium (8.4 - 10.2 mg/dL) 8.5 Phosphorus (2.5 - 4.5 mg/dL) 3.5 Magnesium (1.6 - 2.3 mg/dL) 1.5 L Total Bilirubin (0.2 - 1.3 mg/dL) 5.9 H AST (17 - 59 U/L) 1560 H ALT (21 - 72 U/L) 350 H Albumin (3.5 - 5.0 g/dL) 3.0 L Cortisol AM Sample (4.46 - 22.7 ug/dL) 25.0 H Hematology CBC w Diff NO MAN DIFF REQ WBC (4.8 - 10.8 /CUMM) 18.0 H RBC (4.70 - 6.10 /CUMM) 4.00 L Hgb (14.0 - 18.0 G/DL) 10.1 L Hct (42 - 52 %) 31.9 L MCV (80.0 - 94.0 FL) 79.7 L MCH (27.0 - 31.0 PG) 25.3 L MCHC (33.0 - 37.0 G/DL) 31.8 L RDW (11.5 - 14.5 %) 20.5 H Plt Count (130 - 400 /CUMM) 201 MPV (7.4 - 10.4 FL) 11.4 H Gran % (42.2 - 75.2 %) 84.8 H Lymphocytes % (20.5 - 51.1 %) 10.6 L Monocytes % (1.7 - 9.3 %) 3.9 Eosinophils % (0 - 5 %) 0.3 Basophils % (0.0 - 2.0 %) 0.4 Absolute Granulocytes (1.4 - 6.5 /CUMM) 15.3 H Absolute Lymphocytes (1.2 - 3.4 /CUMM) 1.9 Absolute Monocytes (0.10 - 0.60 /CUMM) 0.7 H Absolute Eosinophils (0.0 - 0.7 /CUMM) 0.1 Absolute Basophils (0.0 - 0.2 /CUMM) 0.1 Miscellaneous Phlebotomy Draw Site RIGHT BRACHIAL 04/21 1719 Blood Gas pH (7.35 - 7.45 PH) 7.29 *L pCO2 (35 - 45 TORR) 33 L pO2 (80 - 100 TORR) 114 H HCO3 (21 - 28 MEQ/L) 16 L ABG O2 Sat (Measured) (>96.0 %) 96.0 P-50 (Temp Corrected) N Carboxyhemoglobin (1.5 - 5.0 %) 1.3 L O2 Concentration % 50% Temperature (97.0 - 100.0 FARH) 98.2 Respiration Rate (BPM) 14 O2 Delivery Method ESPRIT VENT Vent Mode AC Expiratory Pressure (CMH2O/P) 5 Tidal Volume (CC) 500 Chemistry Sodium (137 - 145 mmol/L) 141 Potassium (3.5 - 5.1 mmol/L) 3.7 Chloride (98 - 107 mmol/L) 103 Carbon Dioxide (22 - 30 mmol/L) 18 L Anion Gap (5 - 16) 20 H BUN (9 - 20 mg/dL) 37 H Creatinine (0.7 - 1.2 mg/dL) 3.1 H Estimated GFR (>60 ml/min) 20 L Glucose (65 - 99 mg/dL) 40 *L Calcium (8.4 - 10.2 mg/dL) 8.6 Phosphorus (2.5 - 4.5 mg/dL) 6.1 H Magnesium (1.6 - 2.3 mg/dL) 1.7 Total Bilirubin (0.2 - 1.3 mg/dL) 3.9 H AST (17 - 59 U/L) 195 H ALT (21 - 72 U/L) 62 Albumin (3.5 - 5.0 g/dL) 3.0 L Hematology CBC w Diff NO MAN DIFF REQ WBC (4.8 - 10.8 /CUMM) 16.4 H RBC (4.70 - 6.10 /CUMM) 3.11 L Hgb (14.0 - 18.0 G/DL) 6.9 *L Hct (42 - 52 %) 23.9 L MCV (80.0 - 94.0 FL) 77.1 L MCH (27.0 - 31.0 PG) 22.3 L MCHC (33.0 - 37.0 G/DL) 28.9 L RDW (11.5 - 14.5 %) 24.1 H Plt Count (130 - 400 /CUMM) 294 MPV (7.4 - 10.4 FL) 10.2 Gran % (42.2 - 75.2 %) 89.9 H Lymphocytes % (20.5 - 51.1 %) 4.2 L Monocytes % (1.7 - 9.3 %) 5.8 Eosinophils % (0 - 5 %) 0.1 Basophils % (0.0 - 2.0 %) 0 Absolute Granulocytes (1.4 - 6.5 /CUMM) 14.7 H Absolute Lymphocytes (1.2 - 3.4 /CUMM) 0.7 L Absolute Monocytes (0.10 - 0.60 /CUMM) 0.9 H Absolute Eosinophils (0.0 - 0.7 /CUMM) 0 Absolute Basophils (0.0 - 0.2 /CUMM) 0 Miscellaneous Phlebotomy Draw Site RIGHT RADIAL 04/21 1710 Chemistry Sodium Cancelled Potassium Cancelled Chloride Cancelled Carbon Dioxide Cancelled Anion Gap Cancelled BUN Cancelled Creatinine Cancelled Glucose Cancelled Calcium Cancelled Phosphorus Cancelled Magnesium Cancelled Total Bilirubin Cancelled AST Cancelled ALT Cancelled Albumin Cancelled Last 24 Hours of Clarke Results: OR culture April 21 labeled peritoneal abscess negative Blood cultures 2 April 21 negative Recent Imaging Studies: Chest x-ray April 22 revealed bibasilar densities with bilateral moderate to large pleural effusions Assessment/Plan Impression: Critically ill, now with hypotension, requiring 3 pressors, and remaining on the ventilator status post placement of a feeding jejunostomy tube in the OR yesterday, with lysis of adhesions, removal of 5 L of ascitic fluid and drainage of 3 1 mL interloop abscesses in the peritoneum. He has developed fevers and leukocytosis, possibly related to the intra-abdominal abscesses, though these were quite small and seem unlikely to explain his current condition, versus healthcare associated infections, including line sepsis or pneumonia. His liver enzymes have increased, likely secondary to shock liver, though his bilirubin was already elevated, for unclear reasons, with the workup for a biliary process , including MRI of the abdomen and HIDA scan, negative. His chest x-ray suggests bilateral pleural effusions and further evaluation of these, including possible thoracentesis, may need to be considered. Suggestion: 1. Follow-up recent cultures 2. Send a sputum culture 3. Discontinue Ceftazidime and Flagyl 4. Vancomycin 1 g IV 1 pending above 5. Begin Meropenem 500 mg IV every 24 hours pending above
--- NOTE | 2017-04-22 11:37 | PN- Nephrology ---
Assessment/Plan Assessment: ESRD. polycystic kidney / liver disease. portal hypertension with ascites. On dialysis now. Will give an additional 1L NS with HD (2.7 L total) May need additional fluid after dialysis (could use 5% albumin) to restore intravascular volume. If BP remains low might place TLC and follow CVP especially in light of sepsis (needs volume resussitation). Deejay Conley MD ADDENUM: Tolerating dialysis 2L NS given so far will give additional 300-400 cc before completing HD. Watch BP. Give additional fluid as needed. He will need fortaz given after HD (removed with HD). Might use 5% Albumin or NS after HD. could easily need additional 2-3L crystalloid to help BP. Deejay Conley MD Suggestion: . Subjective Subjective: Events noted. Pt went to OR for feeding jejunostomy. 5L ascites were evacuated and he was found to have multiple intrabdominal abcesses. He is now on fortaz/ flagyl. He has gotted 4 x 12.5 g albumin and 1.7 L NS so far with dialysis with SBP around 95 now. Objective Vital Signs and I&Os Ill M in ICU intubated awake 97/50 93 101.6 Lungs clear Cor RRR Abd soft pos ascites Ext neg edema Results Pertinent Lab Results: Laboratory Tests 04/22 04/22 0535 0035 Blood Gas pH (7.35 - 7.45 PH) 7.37 pCO2 (35 - 45 TORR) 24 L pO2 (80 - 100 TORR) 85 HCO3 (21 - 28 MEQ/L) 14 L ABG O2 Sat (Measured) (>96.0 %) 96.0 P-50 (Temp Corrected) N Carboxyhemoglobin (1.5 - 5.0 %) 1.2 L O2 Concentration % .45 Respiration Rate (BPM) 26 O2 Delivery Method VENT Vent Mode A/C Expiratory Pressure (CMH2O/P) 5 Tidal Volume (CC) 500 Chemistry Sodium (137 - 145 mmol/L) 144 Potassium (3.5 - 5.1 mmol/L) 3.6 Chloride (98 - 107 mmol/L) 106 Carbon Dioxide (22 - 30 mmol/L) 18 L Anion Gap (5 - 16) 21 H BUN (9 - 20 mg/dL) 42 H Creatinine (0.7 - 1.2 mg/dL) 3.2 H Estimated GFR (>60 ml/min) 19 L Glucose (65 - 99 mg/dL) 68 Calcium (8.4 - 10.2 mg/dL) 8.5 Phosphorus (2.5 - 4.5 mg/dL) 3.5 Magnesium (1.6 - 2.3 mg/dL) 1.5 L Total Bilirubin (0.2 - 1.3 mg/dL) 5.9 H AST (17 - 59 U/L) 1560 H ALT (21 - 72 U/L) 350 H Albumin (3.5 - 5.0 g/dL) 3.0 L Cortisol AM Sample (4.46 - 22.7 ug/dL) 25.0 H Hematology CBC w Diff NO MAN DIFF REQ WBC (4.8 - 10.8 /CUMM) 18.0 H RBC (4.70 - 6.10 /CUMM) 4.00 L Hgb (14.0 - 18.0 G/DL) 10.1 L Hct (42 - 52 %) 31.9 L MCV (80.0 - 94.0 FL) 79.7 L MCH (27.0 - 31.0 PG) 25.3 L MCHC (33.0 - 37.0 G/DL) 31.8 L RDW (11.5 - 14.5 %) 20.5 H Plt Count (130 - 400 /CUMM) 201 MPV (7.4 - 10.4 FL) 11.4 H Gran % (42.2 - 75.2 %) 84.8 H Lymphocytes % (20.5 - 51.1 %) 10.6 L Monocytes % (1.7 - 9.3 %) 3.9 Eosinophils % (0 - 5 %) 0.3 Basophils % (0.0 - 2.0 %) 0.4 Absolute Granulocytes (1.4 - 6.5 /CUMM) 15.3 H Absolute Lymphocytes (1.2 - 3.4 /CUMM) 1.9 Absolute Monocytes (0.10 - 0.60 /CUMM) 0.7 H Absolute Eosinophils (0.0 - 0.7 /CUMM) 0.1 Absolute Basophils (0.0 - 0.2 /CUMM) 0.1 Miscellaneous Phlebotomy Draw Site RIGHT BRACHIAL 04/21 04/21 4760 9905 Blood Gas pH (7.35 - 7.45 PH) 7.29 *L pCO2 (35 - 45 TORR) 33 L pO2 (80 - 100 TORR) 114 H HCO3 (21 - 28 MEQ/L) 16 L ABG O2 Sat (Measured) (>96.0 %) 96.0 P-50 (Temp Corrected) N Carboxyhemoglobin (1.5 - 5.0 %) 1.3 L O2 Concentration % 50% Temperature (97.0 - 100.0 FARH) 98.2 Respiration Rate (BPM) 14 O2 Delivery Method ESPRIT VENT Vent Mode AC Expiratory Pressure (CMH2O/P) 5 Tidal Volume (CC) 500 Chemistry Sodium (137 - 145 mmol/L) 141 Potassium (3.5 - 5.1 mmol/L) 3.7 Chloride (98 - 107 mmol/L) 103 Carbon Dioxide (22 - 30 mmol/L) 18 L Anion Gap (5 - 16) 20 H BUN (9 - 20 mg/dL) 37 H Creatinine (0.7 - 1.2 mg/dL) 3.1 H Estimated GFR (>60 ml/min) 20 L Glucose (65 - 99 mg/dL) 40 *L Calcium (8.4 - 10.2 mg/dL) 8.6 Phosphorus (2.5 - 4.5 mg/dL) 6.1 H Magnesium (1.6 - 2.3 mg/dL) 1.7 Total Bilirubin (0.2 - 1.3 mg/dL) 3.9 H AST (17 - 59 U/L) 195 H ALT (21 - 72 U/L) 62 Albumin (3.5 - 5.0 g/dL) 3.0 L Hematology CBC w Diff NO MAN DIFF REQ WBC (4.8 - 10.8 /CUMM) 16.4 H RBC (4.70 - 6.10 /CUMM) 3.11 L Hgb (14.0 - 18.0 G/DL) 6.9 *L Hct (42 - 52 %) 23.9 L MCV (80.0 - 94.0 FL) 77.1 L MCH (27.0 - 31.0 PG) 22.3 L MCHC (33.0 - 37.0 G/DL) 28.9 L RDW (11.5 - 14.5 %) 24.1 H Plt Count (130 - 400 /CUMM) 294 MPV (7.4 - 10.4 FL) 10.2 Gran % (42.2 - 75.2 %) 89.9 H Lymphocytes % (20.5 - 51.1 %) 4.2 L Monocytes % (1.7 - 9.3 %) 5.8 Eosinophils % (0 - 5 %) 0.1 Basophils % (0.0 - 2.0 %) 0 Absolute Granulocytes (1.4 - 6.5 /CUMM) 14.7 H Absolute Lymphocytes (1.2 - 3.4 /CUMM) 0.7 L Absolute Monocytes (0.10 - 0.60 /CUMM) 0.9 H Absolute Eosinophils (0.0 - 0.7 /CUMM) 0 Absolute Basophils (0.0 - 0.2 /CUMM) 0 Miscellaneous Phlebotomy Draw Site RIGHT RADIAL 04/21 04/21 1710 0710 Chemistry Sodium (137 - 145 mmol/L) Cancelled 143 Potassium (3.5 - 5.1 mmol/L) Cancelled 4.0 Chloride (98 - 107 mmol/L) Cancelled 100 Carbon Dioxide (22 - 30 mmol/L) Cancelled 22 Anion Gap (5 - 16) Cancelled 21 H BUN (9 - 20 mg/dL) Cancelled 36 H Creatinine (0.7 - 1.2 mg/dL) Cancelled 2.7 H Estimated GFR (>60 ml/min) 24 L BUN/Creatinine Ratio (7 - 25 %) 13.3 Glucose Cancelled Calcium Cancelled Phosphorus Cancelled Magnesium Cancelled Total Bilirubin Cancelled AST Cancelled ALT Cancelled Albumin Cancelled Hematology CBC w Diff NO MAN DIFF REQ WBC (4.8 - 10.8 /CUMM) 9.2 RBC (4.70 - 6.10 /CUMM) 3.62 L Hgb (14.0 - 18.0 G/DL) 8.5 L Hct (42 - 52 %) 27.5 L MCV (80.0 - 94.0 FL) 76.0 L MCH (27.0 - 31.0 PG) 23.5 L MCHC (33.0 - 37.0 G/DL) 30.9 L RDW (11.5 - 14.5 %) 24.1 H Plt Count (130 - 400 /CUMM) 241 MPV (7.4 - 10.4 FL) 10.9 H Gran % (42.2 - 75.2 %) 77.0 H Lymphocytes % (20.5 - 51.1 %) 12.4 L Monocytes % (1.7 - 9.3 %) 10.4 H Eosinophils % (0 - 5 %) 0.1 Basophils % (0.0 - 2.0 %) 0.1 Absolute Granulocytes (1.4 - 6.5 /CUMM) 7.1 H Absolute Lymphocytes (1.2 - 3.4 /CUMM) 1.1 L Absolute Monocytes (0.10 - 0.60 /CUMM) 1.0 H Absolute Eosinophils (0.0 - 0.7 /CUMM) 0 Absolute Basophils (0.0 - 0.2 /CUMM) 0 04/20 04/20 0810 0735 Chemistry Sodium (137 - 145 mmol/L) 142 Potassium (3.5 - 5.1 mmol/L) 4.0 Chloride (98 - 107 mmol/L) 99 Carbon Dioxide (22 - 30 mmol/L) 23 Anion Gap (5 - 16) 20 H BUN (9 - 20 mg/dL) 52 H Creatinine (0.7 - 1.2 mg/dL) 3.8 H Estimated GFR (>60 ml/min) 16 L BUN/Creatinine Ratio (7 - 25 %) 13.7 Hematology CBC w Diff MAN DIFF ORDERED WBC (4.8 - 10.8 /CUMM) 9.1 RBC (4.70 - 6.10 /CUMM) 3.78 L Hgb (14.0 - 18.0 G/DL) 8.7 L Hct (42 - 52 %) 28.5 L MCV (80.0 - 94.0 FL) 75.3 L MCH (27.0 - 31.0 PG) 23.0 L MCHC (33.0 - 37.0 G/DL) 30.5 L RDW (11.5 - 14.5 %) 22.7 H Plt Count (130 - 400 /CUMM) 260 MPV (7.4 - 10.4 FL) 11.2 H Segmented Neutrophils (42.2 - 75.2 %) 82 H Band Neutrophils (0.0 - 5.0 %) 1 Lymphocytes (20.5 - 51.1 %) 11 L Monocytes (1.7 - 9.3 %) 5 Basophils (0.0 - 2.0 %) 1 Platelet Estimate (ADEQUATE) ADEQUATE Hypochromic-Microcytic 3+ Poikilocytosis 3+ Anisocytosis 2+ Microcytic Cells 2+ Ovalocytes 1+ Schistocytes Serology Hep Bs Antigen (NONREACTIVE) NONREACTIVE Hep Bs Antibody (NONREACTIVE) NONREACTIVE
[2017-04-22 16:00] VITALS: BP 122/80
--- NOTE | 2017-04-22 16:26 | RADIOLOGY REPORT ---
EXAMINATION: CR PORTABLE CHEST CLINICAL INFORMATION: Confirm placement of orogastric tube. COMPARISON: Several prior chest x-rays, most recent of which is from earlier today. TECHNIQUE: Portable AP semierect view of the chest was obtained. FINDINGS: An enteric tube has been placed and is seen coursing into the abdomen with tip not visualized. Endotracheal tube is in place with tip 3 cm above the holley. Right jugular large bore catheter is seen at the cavoatrial junction. Left subclavian PICC line tip is seen in the deep SVC. Multiple EKG leads are seen overlying the chest. Bibasilar opacities are again noted, likely representing effusions and associated atelectatic changes or consolidation in the lungs. There are some curvilinear lucencies seen in region of the right lung base as well as in the upper abdomen. These are poorly defined and may represent free air under the diaphragm. Bony structures are grossly unremarkable. IMPRESSION: 1. Enteric tube extends into the abdomen with tip not visualized. 2. Other tubes and lines in place as discussed above. 3. Prominent lucency is seen in the upper abdomen, raising the suspicion of free air. Evaluation is limited. Recommend left side down decubitus view of the abdomen for further assessment and close clinical correlation. In discussion with Dr. Abel, the patient is 1 day status post intraoperative lysis of adhesions, which would explain free air in the abdomen. This critical result was discussed with Dr. Irasema Bassett 04/22/2017, 4:17 PM and it was ascertained that the content and urgency of this report was understood at the time of direct communication.
[2017-04-23] VITALS: BP 130/80
[2017-04-23 05:16] LABS: ABSOLUTE BASOPHIL COUNT 0 /CUMM (0.0-0.2); ABSOLUTE EOSINOPHIL COUNT 0 /CUMM (0.0-0.7); ABSOLUTE GRANULOCYTE CT 19.7 /CUMM (1.4-6.5); BASOPHIL % 0 % (0.0-2.0); EOSINOPHIL % 0 % (0-5); GRANULOCYTE % 86.9 % (42.2-75.2); HEMATOCRIT 28.3 % (42-52); MEAN CORPUSCULAR HGB 25.5 PG (27.0-31.0); MEAN CORPUSCULAR HGB CONC 32.3 G/DL (33.0-37.0); MEAN PLATELET VOLUME 9.4 FL (7.4-10.4); PLATELET COUNT 111 /CUMM (130-400); RBC DISTRIBUTION WIDTH 21.4 % (11.5-14.5); RED BLOOD CELL CT 3.58 /CUMM (4.70-6.10); WHITE BLOOD CELL COUNT 22.7 /CUMM (4.8-10.8)
[2017-04-23 08:00] VITALS: BP 126/80
--- NOTE | 2017-04-23 08:26 | PN- Resident CRCU ---
Subjective HPI/CRCU Issues: He was comfortable in the am, but appearted somnolent. He responded to verbal stimuli. After he was brought from operating room yesterday, he continued to have persistent hypotension for which he required pressors. Currently been weaned off. In the last 24-48hrs: He underwent a J tube placement, to optimize his nutrition status, in the OR where he had 5 L of ascitic fluid drained along with lysis of adhesions and drainage of 3 small abscesses; Due to persistent hypotension, after the procedure he was brought to the ICU where he subsequently required to be on pressors- levophed, neosynephrine, vasopressin- which are being tapered off gradually with monitoring. He was also given 2 units of pRBC,albumin, and fluid resuscitation with normal saline. He underwent a session of HD, during which time, he dropped his BP and was fluid resucitated to make up for the peritoneal fluid drainage of approximately 5L. He has an elevated white count and has intermittently been spiking fevers. 24 Hour Events: Tmax 101.6 at 8 AM and 100.8 at 8 PM. Heart rate in the range of 74-100 Normal sinus rhythm Respiratory rate 26 Blood pressure systolic 79-147/42-86 CVP 4-9 Blood sugars ranged in between 55-108 Ventilator settings: Volume control-assist Tidal volume 500, FiO2 45%, RR 26, PEEP of 5, pulse ox 92-96%. Fluids-intake in the last 24 hours 7814 ml, output 850 ml. Objective Vital Signs & I&O Last 8 Hrs of Vitals and I&O: Intake & Output 04/23 1600 Intake Total 980 Output Total 25 Balance 955 Intake, IV 940 Intake, Other 40 Output, 25 Gastric Drainage Exam General Appearance: awake, intubated, lethargic, mild distress Head: atraumatic Ears, Nose, Throat: limited exam Neck: normal inspection, supple Respiratory: normal breath sounds Cardiovascular: regular rate/rhythm Gastrointestinal: distention, no tenderness no erythema or leakage around the tube placement site no rashes Extremities: normal inspection, normal capillary refill, normal range of motion, no edema Cranial Nerves: PERRL Skin: intact, normal color, warm/dry Skin Temp/Moisture Exam: Warm/Dry Sepsis Skin Exam (color): Normal for Ethnicity, Cyanotic, picc line in place Sepsis Peripheral Pulse Location: Dorsalis Pedis Sepsis Peripheral Pulse Exam: Normal Sepsis Cap Refill Exam: <2 Sec Current Medications: Current Medications Sig/Lola Start time Last Medication Dose Route Stop Time Status Admin Acetaminophen 650 MG .STK-MED ONE 04/24 1444 DC PO 04/24 1445 Acetaminophen 650 MG Q4P PRN 04/17 1645 AC 04/24 PO 1452 Albumin Human 25 GM ONCE ONE 04/25 0845 DC 04/25 IV 04/25 0846 0908 Albumin Human 25 GM Q8 04/22 1400 AC 04/25 IV 0533 Benzocaine/Menthol 1 MYLES Q2P PRN 04/03 1100 AC PO Bisacodyl 10 MG ONCE PRN 04/09 1330 AC NE Collagenase 1 BENEDICTO BID 04/02 1100 AC 04/24 TOP 2100 Desvenlafaxine 50 MG MoWeFr@1300 04/20 1300 AC 04/20 Succinate PO 1252 Dextrose 12.5 GM ONCE ONE 04/24 2345 DC 04/24 IV 04/24 2346 2343 Dextrose/Sodium 1,000 ML Q16H 04/24 1745 AC 04/24 Chloride IV 2052 Dextrose/Sodium 1,000 ML Q13H 04/21 2345 DC 04/24 Chloride IV 1300 Epoetin Bryan 3,000 UNIT 03/30 1000 AC 04/22 IV 0945 Glycerin 2 SPRAY Q2P PRN 04/01 2045 AC PO Heparin Sodium 5,000 UNIT Q8 03/28 1444 DC 04/24 (Porcine) SC 1451 Meropenem 1 GM DAILY 04/24 1000 AC 04/25 IV 0940 Morphine Sulfate 2 MG Q4P PRN 04/19 1145 AC 04/25 IV 0254 Multivitamins 1 TAB 1700 03/25 1700 AC 04/24 PO 1525 Ondansetron HCl 4 MG Q6P PRN 04/12 0845 AC 04/22 IV 0130 Pantoprazole Sodium 40 MG DAILY 04/21 2230 AC 04/25 IV 0940 Polyethylene Glycol 17 GM DAILY PRN 04/03 1100 AC 04/06 PO 1850 Potassium Phosphate 15 mMol ONE ONE 04/25 0745 AC 04/25 Sodium Chloride 250 ML IV 04/25 1149 0940 Senna/Docusate Sodium 1 TAB BID PRN 04/06 1500 AC 04/13 PO 1308 Verapamil HCl 180 MG DAILY 03/25 0745 AC 04/19 PO 0836 Impression/Plan Impression/Problem List Impression: Mr. Tijerina is a 66 yo m with a PMH of PKD, Polycystic liver disease, portal HTN , HTN, HLD, umbilical hernia repair, colon ademona, GERD presented to the ED with NVD with progressively worsened abdominal distention from ascitic fluid. 1. Hypotension 2. Ascites likely secondary to Portal Hypertension 3. Depression 4. Catheter-associated Peritonitis - resolved 5. Nonsustained SVT - currently resolved 6. Acute Hypoxic Respiratory Failure - resolved 7. SHELBY on CKD - resolved 8. History of Polycystic Kidney and Liver disease Pertinent lab findings in the last 24-48 hrs: WBC 16.4 (04/21)-->18.0 (04/22)-->22.7 (04/23) Hemoglobin 6.9 (04/21)--> 10.1 (04/22)--> 9.1 (04/23)-status post PRBC T Platelets 294(04/21)--> 201 (04/22)--> 111 (04/23) Sr Cr 3.1(04/21)--> 3.2 (04/22) x HD--> 2.0 (04/23) AST 195(04/21)--> 1560 (04/22)--> 678 (04/23) ALT 62 (04/21)--> 350 (04/22)--> 175 (04/23) ABG pH 7.49, PCO2 22, PO2 76 OR cultures show growth of anaerobic gram-negative rods, likely Bacteroides. Plan: 1. Respiratory: Continues to be intubated. Currently on RR of 26, which could be decreased to correct the respiratory acidosis. 2. Infectious: Continues to be febrile, although low grade. WBC increased from 18.0 (04/22)-->22.7 (04/23), and is currently on Meropenem with renal adjusted dose of 0.5mg q24hr ( as for IHD protocol). OR cultures showed growth of anerobic gram negative rods, which is most likely Bacteroides, but question remains-how did this intestinal microbe end up in the peritoneal abscess without any questionable breach in the intestinal barrier ? Regardless, the pt currently is being treated emperically. Increased the dose of meropenem to 1gm for now, till he is evaluated by Dr. Davis.( Discussed w/ Dr. Davis ). 3. Metabolic- Underwent dialysis on 04/22/17, and continued to be hypotensive. He was started on neosynephrine, vasopressin and levofed. Currently on a very low dose of levo. Wean off pressors, as tolerated. He was also given fluids, and albumin to make up for the lost volume due to paracentesis. Replete electrolytes accordingly. If needed, we can start 5% albumin. 4. Hematology- There has been an acute drop in platelets, likely due to sepsis. If the platelets continue to drop, then would discontinue heparin sc. Follow results on DIC panel. 6. Alimentary- Currently off feeds, and had a new Jej tube placed. As per surgery, no tube feeds until further evaluation. Continue to monitor blood sugars. He has abbdominal distention which is increasing in size relatively quickly, and the site of jej incision has to monitored for drainage in the event of increasing ascites. Housekeepin. DVT Ppx- heparin sc 2. GI Ppx- Protonix 3. Ventilator- on Volume AC ( Tidal volume 500, FiO2 45%, RR 26, PEEP of 5, pulse ox 92-96%. ). 4. Lines- PICC line 5. Hall cath- in place. 6. Pressors- Levophed. 7. Code- Full code. Discussed the results and the plan with the family. Problem List: 1. Hypotension 2. ESRD (end stage renal disease) Pain Ratin (unable to assess) Tomorrow's Labs & Rationales: cbc icu Plan DVT/Prophylaxis: mechanical
--- NOTE | 2017-04-23 10:08 | PN- Pulmonary ---
Subjective HPI/Critical Care Issues: Patient remains intubated and pressor dependent though Haemonetics are improving and Mike-Synephrine was able to be discontinued. He remains on levo fed and vasopressin Objective Current Medications: Current Medications Sig/Lola Start time Last Medication Dose Route Stop Time Status Admin Acetaminophen 650 MG Q4P PRN 04/17 1645 AC 04/19 PO 1142 Albumin Human 25 GM Q8 04/22 1400 AC 04/23 IV 0641 Albumin Human 25 GM ONCE ONE 04/22 1015 DC 04/22 IV 04/22 1016 1015 Benzocaine/Menthol 1 MYLES Q2P PRN 04/03 1100 AC PO Bisacodyl 10 MG ONCE PRN 04/09 1330 AC UT Ceftazidime 1,000 MG 2200 04/21 220 DC 04/21 IV 2240 Collagenase 1 BENEDICTO BID 04/02 1100 AC 04/22 TOP 2118 Desvenlafaxine 50 MG MoWeFr@1300 04/20 1300 AC 04/20 Succinate PO 1252 Dextrose/Sodium 1,000 ML Q13H 04/21 2345 AC 04/22 Chloride IV 2020 Epoetin Bryan 3,000 UNIT 03/30 1000 AC 04/22 IV 0945 Glycerin 2 SPRAY Q2P PRN 04/01 2045 AC PO Heparin Sodium 5,000 UNIT Q8 03/28 1444 AC 04/23 (Porcine) SC 0640 Magnesium Sulfate 1 GM Q2H 04/22 09 DC 04/22 Dextrose/Water 100 ML IV 04/22 1259 1042 Meropenem 0.5 GM DAILY 04/22 1307 AC 04/22 IV 1404 Metronidazole 500 MG Q8H 04/21 2200 DC 04/22 N/A 1 UNIT IV 0532 Morphine Sulfate 2 MG Q4P PRN 04/19 1145 AC 04/23 IV 0851 Multivitamins 1 TAB 1700 03/25 1700 AC 04/20 PO 1801 Norepinephrine 4 MG Q3H 04/22 0900 AC 04/23 Sodium Chloride 250 ML IV 0705 Ondansetron HCl 4 MG Q6P PRN 04/12 0845 AC 04/22 IV 0130 Pantoprazole Sodium 40 MG DAILY 04/21 2230 AC 04/22 IV 1010 Phenylephrine HCl 40 MG Q13H 04/22 1930 DC 04/22 Dextrose/Water 250 ML IV 1253 Phenylephrine HCl 40 MG Q6H 04/22 1900 AC 04/22 Dextrose/Water 250 ML IV 2341 Phenylephrine HCl 40 MG Q24H 04/21 2014 DC 04/22 Dextrose/Water 250 ML IV 04/22 185 0549 Phosphate 250 MG ONCE ONE 04/23 914 DC PO 04/23 0916 Polyethylene Glycol 17 GM DAILY PRN 04/03 1100 AC 04/06 PO 1850 Senna/Docusate Sodium 1 TAB BID PRN 04/06 1500 AC 04/13 PO 1308 Sevelamer Carbonate 1,600 MG WITH MEALS 03/24 1700 AC 04/20 PO 1252 Vancomycin HCl 1,000 MG ONCE ONE 04/22 1315 DC 04/22 Dextrose/Water 250 ML IV 04/22 1414 1405 Vasopressin 40 UNITS Q16H 04/21 1700 AC 04/22 Sodium Chloride 100 ML IV 1821 Verapamil HCl 180 MG DAILY 03/25 0745 AC 04/19 PO 0836 Vital Signs & I&O Last 24 Hrs of Vitals and I&O: Vital Signs Date Time Temp Pulse Resp B/P B/P Pulse O2 O2 Flow FiO2 Mean Ox Delivery Rate 04/23 0853 45 04/23 0800 97 Ventilator 45% 04/23 0800 100.1 78 26 126/80 97 Ventilator 45% 04/23 0705 100.1 82 26 136/92 04/23 0704 100.1 78 26 136/92 04/23 0645 45 04/23 0400 96 Ventilator 45% 04/23 0359 45 04/23 0143 45 02 0000 95 Ventilator 45% 02/ 0000 100.6 91 27 130/80 95 Ventilator 55% 04/22 2338 100.6 88 26 143/90 / 2216 45 04/22 2021 100.8 98 25 120/75 04/22 2000 93 Ventilator 55% 04/22 1938 55 / 1630 55 04/22 1600 96 Ventilator 55% 04/22 1600 99.2 97 26 122/80 96 Ventilator 55% / 1500 93 26 131/79 04/22 1408 55 04/22 1403 92 Ventilator 50% 04/22 1253 98.9 94 26 132/84 04/22 1200 91 Ventilator 45% 04/22 1101 45 Intake & Output 04/23 1600 04/23 0800 02/10 0000 Intake Total 1369 2014 Output Total 150 300 Balance 1219 1714 Intake, Blood 100 100 Product Intake, IV 1269 1914 Output, 150 300 Gastric Drainage Since saturation 0.45 97% exam of his chest shows decreased breath sounds there are no wheezes cardiac exam shows a regular S1 and S2 abdomen is markedly distended arterial blood gases show a respiratory alkalosis and metabolic acidosis. Impression/Plan Impression/Plan Impression/Plan: Remains pressor dependent status post surgery. His hemodynamics are improving. Weaning is unrealistic. Recommendations: Taper FiO2 his saturations allow. Reduce respiratory rate to 22 and repeat arterial blood gas. Follow up on cultures. Taper levo fed and if blood pressure remains stable begin to taper vasopressin. Initiation of tube feedings per surgery and nutrition
--- NOTE | 2017-04-23 10:48 | RADIOLOGY REPORT ---
EXAMINATION: XR PORTABLE CHEST CLINICAL INFORMATION: Confirmation tubes and lines. COMPARISON: Chest x-ray 04/22/2017. TECHNIQUE: Portable frontal view of the chest was obtained. FINDINGS: Endotracheal tube tip is 3.7 cm above the holley. Enteric tube courses below the diaphragm projecting over the stomach. Right IJ dialysis catheter tip terminates over the right atrium in unchanged position to Left subclavian central venous catheter tip projects over the cavoatrial junction. Low lung volumes. Stable appearing bibasilar opacities, likely pleural effusions with adjacent airspace disease. There is no pneumothorax. No acute osseous findings. Previously seen lucency projecting over the upper abdomen is no longer visualized. IMPRESSION: - Endotracheal tube 3.7 cm above the holley. Additional tubes and lines as discussed above. - Stable appearing bilateral pleural effusions with adjacent airspace disease. - Previously seen lucency projecting over the upper abdomen is no longer visualized.
--- NOTE | 2017-04-23 11:59 | PN- Nephrology ---
Assessment/Plan Assessment: Electrolytes acceptable, not volume overloaded. Suggestion: No dialysis need today, plan again on 04/23 Subjective Subjective: Patient on vent, pressor requirement better. Objective Vital Signs and I&Os Vital Signs Date Time Temp Pulse Resp B/P B/P Pulse O2 O2 Flow FiO2 Mean Ox Delivery Rate 04/23 0853 45 04/23 0800 97 Ventilator 45% 04/23 0800 100.1 78 26 126/80 97 Ventilator 45% 04/23 0705 100.1 82 26 136/92 04/23 0704 100.1 78 26 136/92 04/23 0645 45 04/23 0400 96 Ventilator 45% 04/23 0359 45 04/23 0143 45 04/23 0000 95 Ventilator 45% 04/23 0000 100.6 91 27 130/80 95 Ventilator 55% 04/22 2338 100.6 88 26 143/90 04/22 2216 45 04/22 2021 100.8 98 25 120/75 04/22 2000 93 Ventilator 55% 04/22 1938 55 04/22 1630 55 04/22 1600 96 Ventilator 55% 04/22 1600 99.2 97 26 122/80 96 Ventilator 55% 04/22 1500 93 26 131/79 04/22 1408 55 04/22 1403 92 Ventilator 50% 04/22 1253 98.9 94 26 132/84 04/22 1200 91 Ventilator 45% Intake & Output 04/23 1600 04/23 0400 04/22 1600 04/22 0400 04/21 1600 04/21 0400 Intake Total 1369 2014 6363 2761.2 0 240 Output Total 150 300 500 Balance 1219 1714 5863 2761.2 0 240 Intake, Blood 100 100 350 350 Product Intake, IV 1269 1914 6013 2411.2 Intake, Oral 0 0 240 Output, 100 Emesis Output, 150 300 400 Gastric Drainage Output, Urine 0 Patient 129 lb Weight Weight Chair scale Measurement Method Physical Exam: NAD VS as above Lungs: clear anteriorly CV: nor rub Abd: quiet bowel sounds Exts: no edema Neuro: sedated. Current Medications: Current Medications Sig/Lola Start time Last Medication Dose Route Stop Time Status Admin Acetaminophen 650 MG Q4P PRN 04/17 1645 AC 04/19 PO 1142 Albumin Human 25 GM Q8 04/22 1400 AC 04/23 IV 0641 Benzocaine/Menthol 1 MYLES Q2P PRN 04/03 1100 AC PO Bisacodyl 10 MG ONCE PRN 04/09 1330 AC AL Ceftazidime 1,000 MG 2200 04/21 220 DC 04/21 IV 2240 Collagenase 1 BENEDITCO BID 04/02 1100 AC 04/22 TOP 2118 Desvenlafaxine 50 MG MoWeFr@1300 04/20 1300 AC 04/20 Succinate PO 1252 Dextrose/Sodium 1,000 ML Q13H 04/21 2345 AC 04/23 Chloride IV 0930 Epoetin Bryan 3,000 UNIT 03/30 1000 AC 04/22 IV 0945 Glycerin 2 SPRAY Q2P PRN 04/01 2045 AC PO Heparin Sodium 5,000 UNIT Q8 03/28 1444 AC 04/23 (Porcine) SC 0640 Magnesium Sulfate 1 GM Q2H 04/22 09 DC 04/22 Dextrose/Water 100 ML IV 04/22 1259 1042 Meropenem 0.5 GM DAILY 04/22 1307 AC 04/23 IV 1009 Metronidazole 500 MG Q8H 04/21 220 DC 04/22 N/A 1 UNIT IV 0532 Morphine Sulfate 2 MG Q4P PRN 04/19 1145 AC 04/23 IV 0851 Multivitamins 1 TAB 1700 03/25 1700 AC 04/20 PO 1801 Norepinephrine 4 MG Q3H 04/22 0900 AC 04/23 Sodium Chloride 250 ML IV 0705 Ondansetron HCl 4 MG Q6P PRN 04/12 0845 AC 04/22 IV 0130 Pantoprazole Sodium 40 MG DAILY 04/21 2230 AC 04/23 IV 1009 Phenylephrine HCl 40 MG Q13H 04/22 1930 DC 04/22 Dextrose/Water 250 ML IV 1253 Phenylephrine HCl 40 MG Q6H 04/22 1900 AC 04/22 Dextrose/Water 250 ML IV 2341 Phenylephrine HCl 40 MG Q24H 04/21 2015 DC 04/22 Dextrose/Water 250 ML IV 04/22 1859 0549 Phosphate 250 MG ONCE ONE 04/23 914 DC 04/23 PO 04/23 0916 1145 Polyethylene Glycol 17 GM DAILY PRN 04/03 1100 AC 04/06 PO 1850 Senna/Docusate Sodium 1 TAB BID PRN 04/06 1500 AC 04/13 PO 1308 Sevelamer Carbonate 1,600 MG WITH MEALS 03/24 1700 DC 04/20 PO 1252 Vancomycin HCl 1,000 MG ONCE ONE 04/22 1315 DC 04/22 Dextrose/Water 250 ML IV 04/22 1414 1405 Vasopressin 40 UNITS Q16H 04/21 1700 AC 04/23 Sodium Chloride 100 ML IV 1128 Verapamil HCl 180 MG DAILY 03/25 0745 AC 04/19 PO 0836 Results Pertinent Lab Results: Laboratory Tests 04/23 04/23 0645 6539 Blood Gas pH (7.35 - 7.45 PH) 7.49 H pCO2 (35 - 45 TORR) 22 L pO2 (80 - 100 TORR) 76 L HCO3 (21 - 28 MEQ/L) 16 L ABG O2 Sat (Measured) (>96.0 %) 94.0 L Carboxyhemoglobin (1.5 - 5.0 %) 0.8 L O2 Concentration % 45 Respiration Rate (BPM) 26 O2 Delivery Method VENT Vent Mode AC Expiratory Pressure (CMH2O/P) 5 Tidal Volume (CC) 500 Chemistry Sodium (137 - 145 mmol/L) 139 Potassium (3.5 - 5.1 mmol/L) 3.6 Chloride (98 - 107 mmol/L) 103 Carbon Dioxide (22 - 30 mmol/L) 19 L Anion Gap (5 - 16) 17 H BUN (9 - 20 mg/dL) 22 H Creatinine (0.7 - 1.2 mg/dL) 2.0 H Estimated GFR (>60 ml/min) 33 L Glucose (65 - 99 mg/dL) 81 Calcium (8.4 - 10.2 mg/dL) 8.1 L Phosphorus (2.5 - 4.5 mg/dL) 2.1 L Magnesium (1.6 - 2.3 mg/dL) 1.8 Total Bilirubin (0.2 - 1.3 mg/dL) 6.1 H Direct Bilirubin (< 0.4 mg/dL) 4.5 H AST (17 - 59 U/L) 678 H ALT (21 - 72 U/L) 175 H Alkaline Phosphatase (< 127 U/L) 265 H Total Protein (6.3 - 8.2 g/dL) 5.0 L Albumin (3.5 - 5.0 g/dL) 2.8 L Hematology CBC w Diff MAN DIFF ORDERED WBC (4.8 - 10.8 /CUMM) 22.7 H RBC (4.70 - 6.10 /CUMM) 3.58 L Hgb (14.0 - 18.0 G/DL) 9.1 L Hct (42 - 52 %) 28.3 L MCV (80.0 - 94.0 FL) 79.0 L MCH (27.0 - 31.0 PG) 25.5 L MCHC (33.0 - 37.0 G/DL) 32.3 L RDW (11.5 - 14.5 %) 21.4 H Plt Count (130 - 400 /CUMM) 111 L MPV (7.4 - 10.4 FL) 9.4 Gran % (42.2 - 75.2 %) 86.9 H Lymphocytes % (20.5 - 51.1 %) 8.8 L Monocytes % (1.7 - 9.3 %) 4.3 Eosinophils % (0 - 5 %) 0 Basophils % (0.0 - 2.0 %) 0 Absolute Granulocytes (1.4 - 6.5 /CUMM) 19.7 H Segmented Neutrophils (42.2 - 75.2 %) 88 H Band Neutrophils (0.0 - 5.0 %) 4 Absolute Lymphocytes (1.2 - 3.4 /CUMM) 2.0 Lymphocytes (20.5 - 51.1 %) 4 L Monocytes (1.7 - 9.3 %) 3 Absolute Monocytes (0.10 - 0.60 /CUMM) 1.0 H Absolute Eosinophils (0.0 - 0.7 /CUMM) 0 Absolute Basophils (0.0 - 0.2 /CUMM) 0 Metamyelocytes (0.0 - 1.0 %) 1 Platelet Estimate (ADEQUATE) DECREASED Hypochromic-Microcytic 3+ Poikilocytosis 2+ Ovalocytes 1+ Miscellaneous Phlebotomy Draw Site RIGHT RADIAL 04/22 04/22 0535 0035 Blood Gas pH (7.35 - 7.45 PH) 7.37 pCO2 (35 - 45 TORR) 24 L pO2 (80 - 100 TORR) 85 HCO3 (21 - 28 MEQ/L) 14 L ABG O2 Sat (Measured) (>96.0 %) 96.0 P-50 (Temp Corrected) N Carboxyhemoglobin (1.5 - 5.0 %) 1.2 L O2 Concentration % .45 Respiration Rate (BPM) 26 O2 Delivery Method VENT Vent Mode A/C Expiratory Pressure (CMH2O/P) 5 Tidal Volume (CC) 500 Chemistry Sodium (137 - 145 mmol/L) 144 Potassium (3.5 - 5.1 mmol/L) 3.6 Chloride (98 - 107 mmol/L) 106 Carbon Dioxide (22 - 30 mmol/L) 18 L Anion Gap (5 - 16) 21 H BUN (9 - 20 mg/dL) 42 H Creatinine (0.7 - 1.2 mg/dL) 3.2 H Estimated GFR (>60 ml/min) 19 L Glucose (65 - 99 mg/dL) 68 Calcium (8.4 - 10.2 mg/dL) 8.5 Phosphorus (2.5 - 4.5 mg/dL) 3.5 Magnesium (1.6 - 2.3 mg/dL) 1.5 L Total Bilirubin (0.2 - 1.3 mg/dL) 5.9 H AST (17 - 59 U/L) 1560 H ALT (21 - 72 U/L) 350 H Albumin (3.5 - 5.0 g/dL) 3.0 L Cortisol AM Sample (4.46 - 22.7 ug/dL) 25.0 H Hematology CBC w Diff NO MAN DIFF REQ WBC (4.8 - 10.8 /CUMM) 18.0 H RBC (4.70 - 6.10 /CUMM) 4.00 L Hgb (14.0 - 18.0 G/DL) 10.1 L Hct (42 - 52 %) 31.9 L MCV (80.0 - 94.0 FL) 79.7 L MCH (27.0 - 31.0 PG) 25.3 L MCHC (33.0 - 37.0 G/DL) 31.8 L RDW (11.5 - 14.5 %) 20.5 H Plt Count (130 - 400 /CUMM) 201 MPV (7.4 - 10.4 FL) 11.4 H Gran % (42.2 - 75.2 %) 84.8 H Lymphocytes % (20.5 - 51.1 %) 10.6 L Monocytes % (1.7 - 9.3 %) 3.9 Eosinophils % (0 - 5 %) 0.3 Basophils % (0.0 - 2.0 %) 0.4 Absolute Granulocytes (1.4 - 6.5 /CUMM) 15.3 H Absolute Lymphocytes (1.2 - 3.4 /CUMM) 1.9 Absolute Monocytes (0.10 - 0.60 /CUMM) 0.7 H Absolute Eosinophils (0.0 - 0.7 /CUMM) 0.1 Absolute Basophils (0.0 - 0.2 /CUMM) 0.1 Miscellaneous Phlebotomy Draw Site RIGHT BRACHIAL 04/21 04/21 2030 1717 Blood Gas pH (7.35 - 7.45 PH) 7.29 *L pCO2 (35 - 45 TORR) 33 L pO2 (80 - 100 TORR) 114 H HCO3 (21 - 28 MEQ/L) 16 L ABG O2 Sat (Measured) (>96.0 %) 96.0 P-50 (Temp Corrected) N Carboxyhemoglobin (1.5 - 5.0 %) 1.3 L O2 Concentration % 50% Temperature (97.0 - 100.0 FARH) 98.2 Respiration Rate (BPM) 14 O2 Delivery Method ESPRIT VENT Vent Mode AC Expiratory Pressure (CMH2O/P) 5 Tidal Volume (CC) 500 Chemistry Sodium (137 - 145 mmol/L) 141 Potassium (3.5 - 5.1 mmol/L) 3.7 Chloride (98 - 107 mmol/L) 103 Carbon Dioxide (22 - 30 mmol/L) 18 L Anion Gap (5 - 16) 20 H BUN (9 - 20 mg/dL) 37 H Creatinine (0.7 - 1.2 mg/dL) 3.1 H Estimated GFR (>60 ml/min) 20 L Glucose (65 - 99 mg/dL) 40 *L Calcium (8.4 - 10.2 mg/dL) 8.6 Phosphorus (2.5 - 4.5 mg/dL) 6.1 H Magnesium (1.6 - 2.3 mg/dL) 1.7 Total Bilirubin (0.2 - 1.3 mg/dL) 3.9 H AST (17 - 59 U/L) 195 H ALT (21 - 72 U/L) 62 Albumin (3.5 - 5.0 g/dL) 3.0 L Hematology CBC w Diff NO MAN DIFF REQ WBC (4.8 - 10.8 /CUMM) 16.4 H RBC (4.70 - 6.10 /CUMM) 3.11 L Hgb (14.0 - 18.0 G/DL) 6.9 *L Hct (42 - 52 %) 23.9 L MCV (80.0 - 94.0 FL) 77.1 L MCH (27.0 - 31.0 PG) 22.3 L MCHC (33.0 - 37.0 G/DL) 28.9 L RDW (11.5 - 14.5 %) 24.1 H Plt Count (130 - 400 /CUMM) 294 MPV (7.4 - 10.4 FL) 10.2 Gran % (42.2 - 75.2 %) 89.9 H Lymphocytes % (20.5 - 51.1 %) 4.2 L Monocytes % (1.7 - 9.3 %) 5.8 Eosinophils % (0 - 5 %) 0.1 Basophils % (0.0 - 2.0 %) 0 Absolute Granulocytes (1.4 - 6.5 /CUMM) 14.7 H Absolute Lymphocytes (1.2 - 3.4 /CUMM) 0.7 L Absolute Monocytes (0.10 - 0.60 /CUMM) 0.9 H Absolute Eosinophils (0.0 - 0.7 /CUMM) 0 Absolute Basophils (0.0 - 0.2 /CUMM) 0 Miscellaneous Phlebotomy Draw Site RIGHT RADIAL 04/21 04/21 1710 0710 Chemistry Sodium (137 - 145 mmol/L) Cancelled 143 Potassium (3.5 - 5.1 mmol/L) Cancelled 4.0 Chloride (98 - 107 mmol/L) Cancelled 100 Carbon Dioxide (22 - 30 mmol/L) Cancelled 22 Anion Gap (5 - 16) Cancelled 21 H BUN (9 - 20 mg/dL) Cancelled 36 H Creatinine (0.7 - 1.2 mg/dL) Cancelled 2.7 H Estimated GFR (>60 ml/min) 24 L BUN/Creatinine Ratio (7 - 25 %) 13.3 Glucose Cancelled Calcium Cancelled Phosphorus Cancelled Magnesium Cancelled Total Bilirubin Cancelled AST Cancelled ALT Cancelled Albumin Cancelled Hematology CBC w Diff NO MAN DIFF REQ WBC (4.8 - 10.8 /CUMM) 9.2 RBC (4.70 - 6.10 /CUMM) 3.62 L Hgb (14.0 - 18.0 G/DL) 8.5 L Hct (42 - 52 %) 27.5 L MCV (80.0 - 94.0 FL) 76.0 L MCH (27.0 - 31.0 PG) 23.5 L MCHC (33.0 - 37.0 G/DL) 30.9 L RDW (11.5 - 14.5 %) 24.1 H Plt Count (130 - 400 /CUMM) 241 MPV (7.4 - 10.4 FL) 10.9 H Gran % (42.2 - 75.2 %) 77.0 H Lymphocytes % (20.5 - 51.1 %) 12.4 L Monocytes % (1.7 - 9.3 %) 10.4 H Eosinophils % (0 - 5 %) 0.1 Basophils % (0.0 - 2.0 %) 0.1 Absolute Granulocytes (1.4 - 6.5 /CUMM) 7.1 H Absolute Lymphocytes (1.2 - 3.4 /CUMM) 1.1 L Absolute Monocytes (0.10 - 0.60 /CUMM) 1.0 H Absolute Eosinophils (0.0 - 0.7 /CUMM) 0 Absolute Basophils (0.0 - 0.2 /CUMM) 0
[2017-04-23 16:00] VITALS: BP 102/56
--- NOTE | 2017-04-23 17:29 | PN- General Surgery ---
Surgical Brief Attending Note Brief Attending Note: Patient seen and discussed, on full support weaning pressors down, at this point would still hold off on starting tube feeds because of the peritonitis we'll reevaluate tomorrow.
[2017-04-24] VITALS: BP 92/50
[2017-04-24 05:30] LABS: ABSOLUTE BASOPHIL COUNT 0 /CUMM (0.0-0.2); ABSOLUTE EOSINOPHIL COUNT 0 /CUMM (0.0-0.7); ABSOLUTE GRANULOCYTE CT 14.7 /CUMM (1.4-6.5); ABSOLUTE LYMPH COUNT 1.2 /CUMM (1.2-3.4); ABSOLUTE MONOCYTE COUNT 0.7 /CUMM (0.10-0.60); BASOPHIL % 0.3 % (0.0-2.0); EOSINOPHIL % 0.2 % (0-5); GRANULOCYTE % 87.7 % (42.2-75.2); HEMATOCRIT 23.6 % (42-52); MEAN CORPUSCULAR HGB 25.9 PG (27.0-31.0); MEAN CORPUSCULAR HGB CONC 32.5 G/DL (33.0-37.0); MEAN CORPUSCULAR VOLUME 79.8 FL (80.0-94.0); MEAN PLATELET VOLUME 9.8 FL (7.4-10.4); PLATELET COUNT 76 /CUMM (130-400); RBC DISTRIBUTION WIDTH 22.4 % (11.5-14.5); RED BLOOD CELL CT 2.95 /CUMM (4.70-6.10)
[2017-04-24 06:08] LABS: WHITE BLOOD CELL COUNT 16.7 /CUMM (4.8-10.8)
[2017-04-24 06:51] LABS: PT 31.5 SEC (9.4-12.5); PTT 83 SEC (25-37)
--- NOTE | 2017-04-24 07:29 | PN- General Surgery ---
See Addendum Subjective Subjective: No acute overnight events reported. Was called by nursing staff regarding dressing. There was drainage around J tube site, dark blood mixed with serous drainage. J tube site dressing changed by nursing staff, OR island dressing remained intact. There was concern regarding skin blistering around main dressing site. Objective Vital Signs and I&Os Vital Signs Date Time Temp Pulse Resp B/P B/P Pulse O2 O2 Flow FiO2 Mean Ox Delivery Rate 04/24 0610 40 04/24 0400 98 Ventilator 40% 04/24 0320 40 04/24 0044 70 100/72 04/24 0025 40 04/24 0000 97 Ventilator 40% 04/24 0000 98.0 72 18 92/50 97 Ventilator 40% 04/23 2213 40 04/23 2030 40 04/23 2000 96 Ventilator 40% 04/23 1645 40 04/23 1600 96 Ventilator 40% 04/23 1600 98.4 85 18 102/56 96 Ventilator 40% 04/23 1358 40 04/23 1203 40 04/23 1200 95 Ventilator 40% 04/23 0853 45 04/23 0800 97 Ventilator 45% 04/23 0800 100.1 78 26 126/80 97 Ventilator 45% Intake & Output 04/24 0800 04/24 0000 04/23 1600 04/23 0800 04/23 0000 09 1600 Intake Total 753 180 4134 2014 4431 Output Total 200 25 150 300 400 Balance 008 510 1707 1714 4031 Intake, Blood 100 100 Product Intake, IV 961 285 7361 1914 4431 Intake, Other 40 Number 2 Bowel Movements Output, 200 25 150 300 400 Gastric Drainage Physical Exam: General: Intubated and sedated, did not respond to verbal stimuli Abdomen: Distended. J tube site dressing saturated now with serous drainage with yellow tint suggestive of bilious component. Skin blistering appears popped, no evidence of active leaking from sites. No purulence. Main island dressing taken down. Joe intact, skin edges well approximated, no erythema, no evidence of wound dehiscence. Assessment/Plan Assessment/Plan Off pressors, bilirubin trending up, creatinine trending up, due for dialysis tomorrow -Continue to monitor drainage, continue to monitor OG output -Do not use j tube site yet, await further evaluation and input from Dr. Gould or Dr. Robles -Continue to reinforce/change dressings as needed, keep wounds clean and dry
[2017-04-24 08:00] VITALS: BP 100/70
--- NOTE | 2017-04-24 08:43 | PN- Resident CRCU ---
Subjective HPI/CRCU Issues: Patient is seen and examined at the bedside. He was responded to verbal command bymoving the head.He does not take part in any kind of conversation. He was having tenderness in his abdomen. Abdomen is distended. He was off pressors since overnight and currently getting IV fluids 75 cc/h. 24 Hour Events: Vital signs -temperature 98.9, pulse 72, normal sinus rhythm, respiratory rate 18, blood pressure 98/64, assist control ventilation with respiratory rate of 18 , tidal volume 500, FiO2 40%, PEEP 5, SPO2 100%. Intake/[id number]/850 Chest x-ray showed - - Multiple tubes and lines in stable position including endotracheal tube 3.5 cm above the holley. - Stable appearing small bilateral pleural effusions with adjacent airspace opacities and central vascular congestion. Blood workup showed-WBC 16.7, hemoglobin 7.7, sodium 134, potassium 3.8, bicarb 21, anion gap 17, BUN 33, creatinine 2.6, calcium 85, phosphorus 2.3, magnesium 1.9. Objective Vital Signs & I&O Last 8 Hrs of Vitals and I&O: Intake & Output 04/24 1600 Intake Total 680 Output Total 230 Balance 450 Intake, IV 600 Intake, Other 80 Output, 230 Gastric Drainage Exam General Appearance: comfortable, intubated Respiratory: decreased breath sounds Cardiovascular: regular rate/rhythm Gastrointestinal: soft, tender, distended, J tube in lower abdoman Skin: pallor Skin Temp/Moisture Exam: Cool/Dry Current Medications: Current Medications Sig/Lola Start time Last Medication Dose Route Stop Time Status Admin Acetaminophen 650 MG .STK-MED ONE 04/24 1444 DC PO 04/24 1445 Acetaminophen 650 MG Q4P PRN 04/17 1645 AC 04/24 PO 1452 Albumin Human 25 GM ONCE ONE 04/25 0845 DC 04/25 IV 04/25 0846 0908 Albumin Human 25 GM Q8 04/22 1400 AC 04/25 IV 0533 Ampicillin Sodium/ 3,000 MG Q24H 04/25 1300 AC Sulbactam Sodium IV Sodium Chloride 100 ML Benzocaine/Menthol 1 MYLES Q2P PRN 04/03 1100 AC PO Bisacodyl 10 MG ONCE PRN 04/09 1330 AC WV Collagenase 1 BENEDICTO BID 04/02 1100 AC 04/24 TOP 2100 Desvenlafaxine 50 MG MoWeFr@1300 04/20 1300 AC 04/20 Succinate PO 1252 Dextrose 12.5 GM ONCE ONE 04/24 2345 DC 04/24 IV 04/24 2346 2343 Dextrose/Sodium 1,000 ML Q16H 04/24 1745 AC 04/24 Chloride IV 2052 Dextrose/Sodium 1,000 ML Q13H 04/21 2345 DC 04/24 Chloride IV 1300 Epoetin Bryan 3,000 UNIT 03/30 1000 AC 04/22 IV 0945 Glycerin 2 SPRAY Q2P PRN 04/01 2045 AC PO Heparin Sodium 5,000 UNIT Q8 03/28 1444 DC 04/24 (Porcine) SC 1451 Meropenem 1 GM DAILY 04/24 1000 DC 04/25 IV 0940 Morphine Sulfate 2 MG Q4P PRN 04/19 1145 AC 04/25 IV 0254 Multivitamins 1 TAB 1700 03/25 1700 AC 04/24 PO 1525 Norepinephrine 4 MG ONCE ONE 04/25 1000 DC 04/25 Sodium Chloride 250 ML IV 04/25 1001 1005 Ondansetron HCl 4 MG Q6P PRN 04/12 0845 AC 04/22 IV 0130 Pantoprazole Sodium 40 MG DAILY 04/21 2230 AC 04/25 IV 0940 Polyethylene Glycol 17 GM DAILY PRN 04/03 1100 AC 04/06 PO 1850 Potassium Phosphate 15 mMol ONE ONE 04/25 0745 DC 04/25 Sodium Chloride 250 ML IV 04/25 1149 0940 Senna/Docusate Sodium 1 TAB BID PRN 04/06 1500 AC 04/13 PO 1308 Verapamil HCl 180 MG DAILY 03/25 0745 AC 04/19 PO 0836 Impression/Plan Impression/Problem List Impression: Mr. Tijerina is a 66 yo m with a PMH of PKD, Polycystic liver disease, portal HTN , HTN, HLD, umbilical hernia repair, colon ademona, GERD presented to the ED with NVD with progressively worsened abdominal distention from ascitic fluid. 1. Hypotension 2. Ascites likely secondary to Portal Hypertension 3. Depression 4. Catheter-associated Peritonitis - resolved 5. Nonsustained SVT - currently resolved 6. Acute Hypoxic Respiratory Failure - resolved 7. SHELBY on CKD - resolved 8. History of Polycystic Kidney and Liver disease Assessment and vee * Patient is still on the ventilator, saturating well. He is off pressors. * We will continue IV fluids -decrease to 50 cc/h(as he is having positive balance) * He will go for dialysis tomorrow * His blood workup showing low platelet count, advised to stop heparin. DIC Panel was not much conclusive. We will discuss with the development executive if they can decrease the use of heparin during dialysis. We will stop pantoprazole. * We will discuss with for further management of infection. We will continue injection meropenem as before. * We will follow Dr steiner advise for J tube. * We will discuss the goals of care with family. Code - FC; please discuss goals of care with family. DVT prophylaxis - ALPS Problem List: 1. ESRD (end stage renal disease) 2. Polycystic kidney disease Pain Ratin (cannt comment) Tomorrow's Labs & Rationales: CBC,ICU bundle Plan DVT/Prophylaxis: mechanical
--- NOTE | 2017-04-24 08:59 | PN- Infect Dx ---
Subjective Subjective: MAXIMUM TEMPERATURE 100.1. His blood pressure has improved, now off pressors. He does not offer any specific complaints. Objective Last 24 Hrs of Vital Signs/I&O Vital Signs Date Time Temp Pulse Resp B/P B/P Pulse O2 O2 Flow FiO2 Mean Ox Delivery Rate 04/24 0610 40 04/24 0400 98 Ventilator 40% 04/24 0320 40 04/24 0044 70 100/72 04/24 0025 40 04/24 0000 97 Ventilator 40% 04/24 0000 98.0 72 18 92/50 97 Ventilator 40% 04/23 2213 40 04/23 2030 40 04/23 2000 96 Ventilator 40% 04/23 1645 40 04/23 1600 96 Ventilator 40% 04/23 1600 98.4 85 18 102/56 96 Ventilator 40% 04/23 1358 40 04/23 1203 40 04/23 1200 95 Ventilator 40% 04/23 0853 45 Intake & Output 04/24 1600 04/24 0800 04/24 0000 Intake Total 725 828 Output Total 225 200 Balance 500 628 Intake, IV 725 828 Number 0 2 Bowel Movements Output, 225 200 Gastric Drainage Physical Exam Other Physical Findings: He is awake and alert on the ventilator Neck dialysis catheter in the right IJ with no inflammation at the site; triple- lumen catheter in the left subclavian with no inflammation at the site Lungs are clear anteriorly Heart regular rhythm with no murmur Abdomen is distended, tender on palpation diffusely, with positive bowel sounds; J-tube site dressing was saturated with serous drainage Extremities no cyanosis, clubbing or edema Results Last 24 Hours of Lab Results: Laboratory Tests 04/24 04/23 0450 1150 Blood Gas pH (7.35 - 7.45 PH) 7.42 pCO2 (35 - 45 TORR) 29 L pO2 (80 - 100 TORR) 91 HCO3 (21 - 28 MEQ/L) 18 L ABG O2 Sat (Measured) (>96.0 %) 95.0 L P-50 (Temp Corrected) Y Carboxyhemoglobin (1.5 - 5.0 %) 0.9 L O2 Concentration % 40% Temperature (97.0 - 100.0 FARH) 100.1 H Respiration Rate (BPM) 18 O2 Delivery Method VENT Vent Mode VC-AC Expiratory Pressure (CMH2O/P) 5 Tidal Volume (CC) 500 Chemistry Sodium (137 - 145 mmol/L) 144 Potassium (3.5 - 5.1 mmol/L) 3.3 L Chloride (98 - 107 mmol/L) 106 Carbon Dioxide (22 - 30 mmol/L) 21 L Anion Gap (5 - 16) 17 H BUN (9 - 20 mg/dL) 33 H Creatinine (0.7 - 1.2 mg/dL) 2.6 H Estimated GFR (>60 ml/min) 25 L Glucose (65 - 99 mg/dL) 73 Calcium (8.4 - 10.2 mg/dL) 8.5 Phosphorus (2.5 - 4.5 mg/dL) 2.3 L Magnesium (1.6 - 2.3 mg/dL) 1.9 Total Bilirubin (0.2 - 1.3 mg/dL) 6.2 H AST (17 - 59 U/L) 210 H ALT (21 - 72 U/L) 73 H Albumin (3.5 - 5.0 g/dL) 2.7 L Coagulation PT (9.4 - 12.5 SEC) 31.5 H INR (0.90 - 1.17) 3.03 H APTT (25 - 37 SEC) 83 H Fibrinogen Activity (200 - 393 MG/DL) 128 L Hematology CBC w Diff NO MAN DIFF REQ WBC (4.8 - 10.8 /CUMM) 16.7 H RBC (4.70 - 6.10 /CUMM) 2.95 L Hgb (14.0 - 18.0 G/DL) 7.7 L Hct (42 - 52 %) 23.6 L MCV (80.0 - 94.0 FL) 79.8 L MCH (27.0 - 31.0 PG) 25.9 L MCHC (33.0 - 37.0 G/DL) 32.5 L RDW (11.5 - 14.5 %) 22.4 H Plt Count (130 - 400 /CUMM) 76 L MPV (7.4 - 10.4 FL) 9.8 Gran % (42.2 - 75.2 %) 87.7 H Lymphocytes % (20.5 - 51.1 %) 7.5 L Monocytes % (1.7 - 9.3 %) 4.3 Eosinophils % (0 - 5 %) 0.2 Basophils % (0.0 - 2.0 %) 0.3 Absolute Granulocytes (1.4 - 6.5 /CUMM) 14.7 H Absolute Lymphocytes (1.2 - 3.4 /CUMM) 1.2 Absolute Monocytes (0.10 - 0.60 /CUMM) 0.7 H Absolute Eosinophils (0.0 - 0.7 /CUMM) 0 Absolute Basophils (0.0 - 0.2 /CUMM) 0 Miscellaneous Phlebotomy Draw Site RIGHT RADIAL Last 24 Hours of Clarke Results: Peritoneal abscess culture April 21 positive for anaerobic gram-negative rods Blood cultures 2 April 21 negative Recent Imaging Studies: Chest x-ray April 24 bilateral haziness likely secondary to bilateral pleural effusions Assessment/Plan Impression: Condition remains poor, though improved, now off pressors, with decreased oxygen requirements, decreasing temperatures and decreasing white blood cell count on Meropenem Day 3 of treatment for peritonitis/small interloop intra-abdominal abscesses status post drainage 3 days ago during placement of a feeding jejunostomy tube in the OR, at which time he also underwent lysis of adhesions and removal of 5 L of ascitic fluid. His transaminases are decreasing, though his bilirubin and alkaline phosphatase are increased, likely secondary to sepsis , with the recent workup for a biliary process, including MRI of the abdomen and HIDA scan, negative. His chest x-ray suggests increasing bilateral pleural effusions and further evaluation of these, including possible thoracentesis, may need to be considered. The drainage around the J-tube site is of some concern and is being evaluated by Surgery. Suggestion: 1. Follow-up final OR culture 2. Send a sputum culture 3. Further management of his J-tube site per Surgery 4. Continue Meropenem pending above
--- NOTE | 2017-04-24 09:32 | PN- Pulmonary ---
Subjective HPI/Critical Care Issues: Patient remains intubated with borderline blood pressures now off pressors urine output remains borderline Objective Current Medications: Current Medications Sig/Lola Start time Last Medication Dose Route Stop Time Status Admin Acetaminophen 650 MG Q4P PRN 04/17 1645 AC 04/19 PO 1142 Albumin Human 25 GM Q8 04/22 1400 AC 04/24 IV 0506 Benzocaine/Menthol 1 MYLES Q2P PRN 04/03 1100 AC PO Bisacodyl 10 MG ONCE PRN 04/09 1330 AC [place] Collagenase 1 BENEDICTO BID 04/02 1100 AC 04/23 TOP 2200 Desvenlafaxine 50 MG MoWeFr@1300 04/20 1300 AC 04/20 Succinate PO 1252 Dextrose/Sodium 1,000 ML Q13H 04/21 2345 AC 04/23 Chloride IV 2236 Epoetin Bryan 3,000 UNIT 03/30 1000 AC 04/22 IV 0945 Glycerin 2 SPRAY Q2P PRN 04/01 2045 AC PO Heparin Sodium 5,000 UNIT Q8 03/28 1444 AC 04/24 (Porcine) SC 0506 Meropenem 1 GM DAILY 04/24 1000 AC IV Meropenem 0.5 GM ONCE ONE 04/23 1615 DC 04/23 IV 04/23 1616 1746 Meropenem 0.5 GM DAILY 04/22 1307 DC 04/23 IV 1009 Morphine Sulfate 2 MG Q4P PRN 04/19 1145 AC 04/23 IV 0851 Multivitamins 1 TAB 1700 03/25 1700 AC 04/23 PO 1746 Norepinephrine 4 MG Q3H 04/22 0900 DC 04/23 Sodium Chloride 250 ML IV 2000 Ondansetron HCl 4 MG Q6P PRN 04/12 0845 AC 04/22 IV 0130 Pantoprazole Sodium 40 MG DAILY 04/21 2230 AC 04/23 IV 1009 Phenylephrine HCl 40 MG Q6H 04/22 1900 DC 04/22 Dextrose/Water 250 ML IV 2341 Polyethylene Glycol 17 GM DAILY PRN 04/03 1100 AC 04/06 PO 1850 Potassium Chloride 40 MEQ ONCE ONE 04/24 0845 DC PO 04/24 0846 Senna/Docusate Sodium 1 TAB BID PRN 04/06 1500 AC 04/13 PO 1308 Sevelamer Carbonate 1,600 MG WITH MEALS 03/24 1700 DC 04/20 PO 1252 Vasopressin 40 UNITS Q16H 04/24 0330 CAN Sodium Chloride 100 ML IV Vasopressin 40 UNITS Q16H 04/21 1700 DC 04/23 Sodium Chloride 100 ML IV 04/24 0329 1128 Verapamil HCl 180 MG DAILY 03/25 0745 AC 04/19 PO 0836 Vital Signs & I&O Last 24 Hrs of Vitals and I&O: Vital Signs Date Time Temp Pulse Resp B/P B/P Pulse O2 O2 Flow FiO2 Mean Ox Delivery Rate 04/24 799 97.8 74 18 100/70 100 Ventilator 40% 04/24 0610 40 04/24 0400 98 Ventilator 40% 04/24 0320 40 04/24 0044 70 100/72 04/24 0025 40 04/24 0000 97 Ventilator 40% 04/24 0000 98.0 72 18 92/50 97 Ventilator 40% 04/23 2213 40 04/23 2030 40 04/23 2000 96 Ventilator 40% 04/23 1645 40 04/23 1600 96 Ventilator 40% 04/23 1600 98.4 85 18 102/56 96 Ventilator 40% 04/23 1358 40 04/23 1203 40 04/23 1200 95 Ventilator 40% Intake & Output 04/24 1600 04/24 0800 04/24 0000 Intake Total 725 828 Output Total 225 200 Balance 500 628 Intake, IV 725 828 Number 0 2 Bowel Movements Output, 225 200 Gastric Drainage Saturation 40% 100% saphenous chest shows occasional rhonchi cardiac exam shows regular S1 and S2 without murmurs abdomen is tensely distended Impression/Plan Impression/Plan Impression/Plan: Patient remains intubated with borderline blood pressure now off pressors his overall condition remains extremely poor Recommendations: Taper FiO2 his saturations allow. Follow up on cultures. Follow-up infectious disease recommendations;.l surgery follow-up regarding initiation of nutrition weaning does not appear realistic at this time
--- NOTE | 2017-04-24 13:31 | RADIOLOGY REPORT ---
EXAMINATION: XR PORTABLE CHEST CLINICAL INFORMATION: Follow-up status post intubation. COMPARISON: Chest x-ray 04/23/2017. TECHNIQUE: Portable frontal view of the chest was obtained. FINDINGS: Endotracheal tube tip again projects 3.5 cm above the holley. Enteric tube courses below the diaphragm with its tip projecting over the stomach. Right IJ dialysis catheter tip continues to project over the right atrium and a left subclavian venous catheter tip projects over the cavoatrial junction. Stable appearing small bilateral pleural effusions with adjacent airspace opacities. No residual lucency projecting over the upper abdomen. There is central vascular congestion. Pulmonary arterial contour is enlarged suggesting underlying pulmonary arterial hypertension. Cardiac silhouette and osseous structures are stable. IMPRESSION: - Multiple tubes and lines in stable position including endotracheal tube 3.5 cm above the holley. - Stable appearing small bilateral pleural effusions with adjacent airspace opacities and central vascular congestion.
[2017-04-24 16:00] VITALS: BP 106/64
[2017-04-25] VITALS: BP 120/70
--- NOTE | 2017-04-25 01:29 | Event Note ---
Event Note Event Note: Called to patient's bedside on 04/24/2017 for report of sudden onset of copious amounts of ascitic fluid drainage from around j tube site. Within several minutes of its onset, the output was greater than 1 liter. Upon examination of site, it appeared that there was an opening in the skin adjacent to the tube. A single, simple suture was placed. The drainage slowed immediately although there was not a complete resolution. We will continue to monitor site. It is not recommended to start tube feeds under the circumstances. Surgery will reasses on 04/25/17.
[2017-04-25 05:06] LABS: ABSOLUTE BASOPHIL COUNT 0 /CUMM (0.0-0.2); ABSOLUTE EOSINOPHIL COUNT 0.1 /CUMM (0.0-0.7); ABSOLUTE GRANULOCYTE CT 13.4 /CUMM (1.4-6.5); ABSOLUTE LYMPH COUNT 0.9 /CUMM (1.2-3.4); ABSOLUTE MONOCYTE COUNT 0.6 /CUMM (0.10-0.60); BASOPHIL % 0.1 % (0.0-2.0); EOSINOPHIL % 0.4 % (0-5); MEAN CORPUSCULAR HGB 25.6 PG (27.0-31.0); MEAN CORPUSCULAR HGB CONC 32.4 G/DL (33.0-37.0); MEAN CORPUSCULAR VOLUME 79.1 FL (80.0-94.0); MEAN PLATELET VOLUME 10.1 FL (7.4-10.4); RBC DISTRIBUTION WIDTH 22.4 % (11.5-14.5); RED BLOOD CELL CT 3.42 /CUMM (4.70-6.10); WHITE BLOOD CELL COUNT 14.9 /CUMM (4.8-10.8)
[2017-04-25 05:51] LABS: GRANULOCYTE % 89.5 % (42.2-75.2)
[2017-04-25 05:52] LABS: PLATELET COUNT 63 /CUMM (130-400)
--- NOTE | 2017-04-25 07:27 | PN- Resident CRCU ---
Subjective HPI/CRCU Issues: Hypotension Ascites Respiratory Distress 24 Hour Events: No acute events overnight. Patient remains intubated. He was weaned off the pressors during the weekend. However, he was due for dialysis today which tends to drop his blood pressure and he has been restarted on Norepi. He has reaccumulated peritioneal fluid which is causing significant strain on his sutures. He has been scheduled for a paracentesis with IR tomorrow. A suture was placed last night to reinforce the surgical site. There is some fluid drainage from the J tube site. Current Vent Settings: AC mode, FiO2 35%, Vt 500, PEEP 5, PIP 20 Objective Vital Signs & I&O Last 8 Hrs of Vitals and I&O: . Exam General Appearance: alert, awake, cachetic, intubated Head: atraumatic, normal appearance Respiratory: normal breath sounds, chest non-tender Cardiovascular: regular rate/rhythm, systolic murmur Gastrointestinal: soft, non-tender, distention, palpable cystic masses Extremities: no edema Cranial Nerves: normal hearing Skin: sacral decubitus ulcer Skin Temp/Moisture Exam: Warm/Dry Sepsis Skin Exam (color): Normal for Ethnicity Current Medications: Current Medications Sig/Lola Start time Last Medication Dose Route Stop Time Status Admin Acetaminophen 650 MG Q4P PRN 04/17 1645 AC 04/24 PO 1452 Albumin Human 25 GM ONCE ONE 04/25 0845 DC 04/25 IV 04/25 0846 0908 Albumin Human 25 GM Q8 04/22 1400 AC 04/25 IV 1422 Ampicillin Sodium/ 3,000 MG Q24H 04/25 1300 AC 04/25 Sulbactam Sodium IV 1422 Sodium Chloride 100 ML Benzocaine/Menthol 1 MYLES Q2P PRN 04/03 1100 AC PO Bisacodyl 10 MG ONCE PRN 04/09 1330 AC [place] Collagenase 1 BENEDICTO BID 04/02 1100 AC 04/24 TOP 2100 Desvenlafaxine 50 MG MoWeFr@1300 04/20 1300 AC 04/25 Succinate PO 1422 Dextrose 25 GM ONCE ONE 04/25 1630 DC 04/25 IV 04/25 1631 1631 Dextrose 12.5 GM ONCE ONE 04/24 2345 DC 04/24 IV 04/24 2346 2343 Dextrose/Sodium 1,000 ML Q16H 04/24 1745 AC 04/24 Chloride IV 2052 Dextrose/Sodium 1,000 ML Q13H 04/21 2345 DC 04/24 Chloride IV 1300 Epoetin Bryan 3,000 UNIT 03/30 1000 AC 04/25 IV 1130 Glycerin 2 SPRAY Q2P PRN 04/01 2045 AC PO Heparin Sodium 5,000 UNIT Q8 03/28 1444 DC 04/24 (Porcine) SC 1451 Meropenem 1 GM DAILY 04/24 1000 DC 04/25 IV 0940 Morphine Sulfate 2 MG Q4P PRN 04/19 1145 AC 04/25 IV 0254 Multivitamins 1 TAB 1700 03/25 1700 AC 04/24 PO 1525 Norepinephrine 4 MG ONCE ONE 04/25 1000 DC 04/25 Sodium Chloride 250 ML IV 04/25 1001 1005 Ondansetron HCl 4 MG Q6P PRN 04/12 0845 AC 04/22 IV 0130 Pantoprazole Sodium 40 MG DAILY 04/21 2230 AC 04/25 IV 0940 Phytonadione 10 MG ONCE ONE 04/25 1330 DC 04/25 SC 04/25 1331 1421 Polyethylene Glycol 17 GM DAILY PRN 04/03 1100 AC 04/06 PO 1850 Potassium Phosphate 15 mMol ONE ONE 04/25 0745 DC 04/25 Sodium Chloride 250 ML IV 04/25 1149 0940 Senna/Docusate Sodium 1 TAB BID PRN 04/06 1500 AC 04/13 PO 1308 Verapamil HCl 180 MG DAILY 03/25 0745 AC 04/19 PO 0836 Impression/Plan Impression/Problem List Impression: Mr. Tijerina is a 66 yo m with a PMH of PKD, Polycystic liver disease, portal HTN , HTN, HLD, umbilical hernia repair, colon ademona, GERD who presented to the ED with NVD with progressively worsened abdominal distention from ascitic fluid. Assessment and Plan: 1. Hypotension 2. Ascites likely secondary to Portal Hypertension 3. Thrombocytopenia/low fibrinogen 4. Elevated INR 5. ESRD 6. Depression 7. Catheter-associated Peritonitis - resolved 8. Nonsustained SVT - currently resolved 9. Acute Hypoxic Respiratory Failure - resolved 10. SHELBY on CKD - resolved 11. History of Polycystic Kidney and Liver disease Plan: 1. Respiratory: Continues to be intubated with FiO2 of 35%. 2. Infectious: Has been afebrile in the past 24 hours. White count elevated to 14.9 but slightly decreased from 16.7 yesterday. OR cultures show growth of anerobic gram negative rods, which is most likely Bacteroides. The patient was previously on Meropenem but has been switched to IV Unasyn 3g OD (renal adjusted dose) per ID. Final OR cultures will need to be followed. 3. Metabolic- Underwent dialysis today 04/25/17, and continued to be hypotensive. He was started on norepinephrine. Currently on a very low dose of levo. Wean off levo as tolerated. He also received fluids and albumin prior dialysis to maintain his blood pressure. Replete electrolytes accordingly. If needed, he can be started 5% albumin to increase the amount of fluids. Continue IV Albumin 25mg q8 for now. 4. Hematology- There has been an acute drop in platelets, likely due to sepsis. SC heparin has been dc'd. Fibrinogen has been low. This could represent DIC. Will continue to follow DIC panel (INR, fibrinogen levels). If level <100, can give cryoprecipitate. 5. Alimentary- Had a new Jej tube placed last week. There is drainage from the J tube due to reaccumulating ascitic fluid. Tube feedings were started today via OG tube with Vital AF with a goal rate of 10cc/hr. Will continue at low rate until he can be weaned off levophed. 6. Cardiovascular - He previously has had runs of NSVT. He will need to be restarted on his Metoprolol once his blood pressure becomes more stable. Diet: Tube feedings with Vital AF. DVT Prophylaxis: ALPS Code: Full Code. states patient has a living will that says DNR/DNI. She will bring it tomorrow. Problem List: 1. Polycystic liver disease 2. Polycystic kidney disease Pain Ratin Tomorrow's Labs & Rationales: CBC, ICU bundle, LFTs, INR Plan DVT/Prophylaxis: mechanical
[2017-04-25 08:00] VITALS: BP 92/74
--- NOTE | 2017-04-25 09:09 | PN- Nephrology ---
Assessment/Plan Assessment: 1. ESRD: due to PCKD; repeat HD in progress --> no UF 2. Hypotension: prob due to sepsis & liver failure; will give volume w HD but may need pressors restarted 3. Hypokalemia/hypophos: agree w IV supplement Suggestion: Next HD Dottie ? limits of care Subjective Subjective: Awake - intubated Off pressorrs but hypotensive to 80s systolic prior to HD start Continues to drain bloody ascites Objective Vital Signs and I&Os Vital Signs Date Time Temp Pulse Resp B/P B/P Pulse O2 O2 Flow FiO2 Mean Ox Delivery Rate 04/25 0632 35 04/25 0400 100 Ventilator 35% 04/25 0343 35 04/25 0057 35 04/25 0000 98.0 84 18 120/70 98 Ventilator 35% 04/25 0000 98 Ventilator 35% 04/24 2237 35 04/24 2000 97 Ventilator 35% 04/24 1940 35 04/24 1640 35 04/24 1600 98.0 80 18 106/64 98 Ventilator 35% 04/24 1600 96 Ventilator 35% 04/24 1349 35 04/24 1200 97 Ventilator 35% 04/24 1025 74 103/73 04/24 0926 40 Intake & Output 04/25 1600 04/25 0400 04/24 1600 04/24 0400 04/23 1600 04/23 0400 Intake Total 751 107 6794 828 2349 2013 Output Total 230 1520 455 200 175 300 Balance 319 -859 791 119 7323 1714 Intake, Blood 100 100 Product Intake, IV 379 145 6014 828 2209 1914 Intake, Oral 0 0 Intake, Other 80 40 Intake, Tube 90 Irrigant Number 0 2 Bowel Movements Output, 150 170 455 200 175 300 Gastric Drainage Output, Other 80 1350 Output, Urine 0 Physical Exam General Appearance: awake, intubated Head: atraumatic Ears, Nose, Throat: ET tube & OG tube Neck: R IJ HD cath Respiratory: rhonchi Cardiovascular: regular rate/rhythm, friction rub (none) Abdomen: distended & tender; Drain LLQ Extremities: no edema Neurologic/Psychiatric: awake, alert Skin: jaundice Current Medications: Current Medications Sig/Lola Start time Last Medication Dose Route Stop Time Status Admin Acetaminophen 650 MG .STK-MED ONE 04/24 1444 DC PO 04/24 1445 Acetaminophen 650 MG Q4P PRN 04/17 1645 AC 04/24 PO 1452 Albumin Human 25 GM ONCE ONE 04/25 0845 DC IV 04/25 0846 Albumin Human 25 GM Q8 04/22 1400 AC 04/25 IV 0533 Benzocaine/Menthol 1 MYLES Q2P PRN 04/03 1100 AC PO Bisacodyl 10 MG ONCE PRN 04/09 1330 AC RI Collagenase 1 BENEDICTO BID 04/02 1100 AC 04/24 TOP 2100 Desvenlafaxine 50 MG MoWeFr@1300 04/20 1300 AC 04/20 Succinate PO 1252 Dextrose 12.5 GM ONCE ONE 04/24 2345 DC 04/24 IV 04/24 2346 2343 Dextrose/Sodium 1,000 ML Q16H 04/24 1745 AC 04/24 Chloride IV 2052 Dextrose/Sodium 1,000 ML Q13H 04/21 2345 DC 04/24 Chloride IV 1300 Epoetin Bryan 3,000 UNIT 03/30 1000 AC 04/22 IV 0945 Glycerin 2 SPRAY Q2P PRN 04/01 2045 AC PO Heparin Sodium 5,000 UNIT Q8 03/28 1444 DC 04/24 (Porcine) SC 1451 Meropenem 1 GM DAILY 04/24 1000 AC 04/24 IV 1025 Morphine Sulfate 2 MG Q4P PRN 04/19 1145 AC 04/25 IV 0254 Multivitamins 1 TAB 1700 03/25 1700 AC 04/24 PO 1525 Ondansetron HCl 4 MG Q6P PRN 04/12 0845 AC 04/22 IV 0130 Pantoprazole Sodium 40 MG DAILY 04/21 2230 AC 04/24 IV 1025 Polyethylene Glycol 17 GM DAILY PRN 04/03 1100 AC 04/06 PO 1850 Potassium Phosphate 15 mMol ONE ONE 04/25 0745 AC Sodium Chloride 250 ML IV 04/25 1149 Senna/Docusate Sodium 1 TAB BID PRN 04/06 1500 AC 04/13 PO 1308 Verapamil HCl 180 MG DAILY 03/25 0745 AC 04/19 PO 0836 Results Pertinent Lab Results: Laboratory Tests 04/25 04/24 0425 0450 Chemistry Sodium (137 - 145 mmol/L) 144 144 Potassium (3.5 - 5.1 mmol/L) 3.6 3.3 L Chloride (98 - 107 mmol/L) 108 H 106 Carbon Dioxide (22 - 30 mmol/L) 17 L 21 L Anion Gap (5 - 16) 18 H 17 H BUN (9 - 20 mg/dL) 44 H 33 H Creatinine (0.7 - 1.2 mg/dL) 2.8 H 2.6 H Estimated GFR (>60 ml/min) 23 L 25 L Glucose (65 - 99 mg/dL) 61 L 73 Calcium (8.4 - 10.2 mg/dL) 8.9 8.5 Phosphorus (2.5 - 4.5 mg/dL) 2.2 L 2.3 L Magnesium (1.6 - 2.3 mg/dL) 1.8 1.9 Total Bilirubin (0.2 - 1.3 mg/dL) 7.8 H 6.2 H AST (17 - 59 U/L) 96 H 210 H ALT (21 - 72 U/L) 42 73 H Albumin (3.5 - 5.0 g/dL) 2.9 L 2.7 L Coagulation PT (9.4 - 12.5 SEC) 31.5 H INR (0.90 - 1.17) 3.03 H APTT (25 - 37 SEC) 83 H Fibrinogen Activity (200 - 393 MG/DL) 128 L Hematology CBC w Diff NO MAN DIFF REQ NO MAN DIFF REQ WBC (4.8 - 10.8 /CUMM) 14.9 H 16.7 H RBC (4.70 - 6.10 /CUMM) 3.42 L 2.95 L Hgb (14.0 - 18.0 G/DL) 8.8 L 7.7 L Hct (42 - 52 %) 27.0 L 23.6 L MCV (80.0 - 94.0 FL) 79.1 L 79.8 L MCH (27.0 - 31.0 PG) 25.6 L 25.9 L MCHC (33.0 - 37.0 G/DL) 32.4 L 32.5 L RDW (11.5 - 14.5 %) 22.4 H 22.4 H Plt Count (130 - 400 /CUMM) 63 L 76 L MPV (7.4 - 10.4 FL) 10.1 9.8 Gran % (42.2 - 75.2 %) 89.5 H 87.7 H Lymphocytes % (20.5 - 51.1 %) 6.2 L 7.5 L Monocytes % (1.7 - 9.3 %) 3.8 4.3 Eosinophils % (0 - 5 %) 0.4 0.2 Basophils % (0.0 - 2.0 %) 0.1 0.3 Absolute Granulocytes (1.4 - 6.5 /CUMM) 13.4 H 14.7 H Absolute Lymphocytes (1.2 - 3.4 /CUMM) 0.9 L 1.2 Absolute Monocytes (0.10 - 0.60 /CUMM) 0.6 0.7 H Absolute Eosinophils (0.0 - 0.7 /CUMM) 0.1 0 Absolute Basophils (0.0 - 0.2 /CUMM) 0 0 04/23 04/23 1150 0645 Blood Gas pH (7.35 - 7.45 PH) 7.42 7.49 H pCO2 (35 - 45 TORR) 29 L 22 L pO2 (80 - 100 TORR) 91 76 L HCO3 (21 - 28 MEQ/L) 18 L 16 L ABG O2 Sat (Measured) (>96.0 %) 95.0 L 94.0 L P-50 (Temp Corrected) Y Carboxyhemoglobin (1.5 - 5.0 %) 0.9 L 0.8 L O2 Concentration % 40% 45 Temperature (97.0 - 100.0 FARH) 100.1 H Respiration Rate (BPM) 18 26 O2 Delivery Method VENT VENT Vent Mode VC-AC AC Expiratory Pressure (CMH2O/P) 5 5 Tidal Volume (CC) 500 500 Miscellaneous Phlebotomy Draw Site RIGHT RADIAL RIGHT RADIAL 04/23 3936 Chemistry Sodium (137 - 145 mmol/L) 139 Potassium (3.5 - 5.1 mmol/L) 3.6 Chloride (98 - 107 mmol/L) 103 Carbon Dioxide (22 - 30 mmol/L) 19 L Anion Gap (5 - 16) 17 H BUN (9 - 20 mg/dL) 22 H Creatinine (0.7 - 1.2 mg/dL) 2.0 H Estimated GFR (>60 ml/min) 33 L Glucose (65 - 99 mg/dL) 81 Calcium (8.4 - 10.2 mg/dL) 8.1 L Phosphorus (2.5 - 4.5 mg/dL) 2.1 L Magnesium (1.6 - 2.3 mg/dL) 1.8 Total Bilirubin (0.2 - 1.3 mg/dL) 6.1 H Direct Bilirubin (< 0.4 mg/dL) 4.5 H AST (17 - 59 U/L) 678 H ALT (21 - 72 U/L) 175 H Alkaline Phosphatase (< 127 U/L) 265 H Total Protein (6.3 - 8.2 g/dL) 5.0 L Albumin (3.5 - 5.0 g/dL) 2.8 L Hematology CBC w Diff MAN DIFF ORDERED WBC (4.8 - 10.8 /CUMM) 22.7 H RBC (4.70 - 6.10 /CUMM) 3.58 L Hgb (14.0 - 18.0 G/DL) 9.1 L Hct (42 - 52 %) 28.3 L MCV (80.0 - 94.0 FL) 79.0 L MCH (27.0 - 31.0 PG) 25.5 L MCHC (33.0 - 37.0 G/DL) 32.3 L RDW (11.5 - 14.5 %) 21.4 H Plt Count (130 - 400 /CUMM) 111 L MPV (7.4 - 10.4 FL) 9.4 Gran % (42.2 - 75.2 %) 86.9 H Lymphocytes % (20.5 - 51.1 %) 8.8 L Monocytes % (1.7 - 9.3 %) 4.3 Eosinophils % (0 - 5 %) 0 Basophils % (0.0 - 2.0 %) 0 Absolute Granulocytes (1.4 - 6.5 /CUMM) 19.7 H Segmented Neutrophils (42.2 - 75.2 %) 88 H Band Neutrophils (0.0 - 5.0 %) 4 Absolute Lymphocytes (1.2 - 3.4 /CUMM) 2.0 Lymphocytes (20.5 - 51.1 %) 4 L Monocytes (1.7 - 9.3 %) 3 Absolute Monocytes (0.10 - 0.60 /CUMM) 1.0 H Absolute Eosinophils (0.0 - 0.7 /CUMM) 0 Absolute Basophils (0.0 - 0.2 /CUMM) 0 Metamyelocytes (0.0 - 1.0 %) 1 Platelet Estimate (ADEQUATE) DECREASED Hypochromic-Microcytic 3+ Poikilocytosis 2+ Ovalocytes 1+ Imaging/Other Studies: CXR: Endotracheal tube tip again projects 3.5 cm above the holley. Enteric tube courses below the diaphragm with its tip projecting over the stomach. Right IJ dialysis catheter tip continues to project over the right atrium and a left subclavian venous catheter tip projects over the cavoatrial junction. Stable appearing small bilateral pleural effusions with adjacent airspace opacities. No residual lucency projecting over the upper abdomen. There is central vascular congestion. Pulmonary arterial contour is enlarged suggesting underlying pulmonary arterial hypertension. Cardiac silhouette and osseous structures are stable. MR: There are innumerable well-circumscribed T2 hyperintense hepatic cysts enlarging the liver consistent with the history of polycystic kidney disease. Dilated the common bile duct, nor the intrahepatic ducts are well visualized, presumably they are not dilated. There is a fluid fluid level within a 15+ cm cyst in the left lobe of the liver, presumably from internal hemorrhage. The liver is not completely imaged, extending off the inferior margin of the sequences. There are innumerable bilateral renal cysts enlarging the bilateral kidneys. The kidneys are not imaged in their entirety. No definite hydronephrosis is seen. More complete evaluation is limited by lack of IV contrast. Normal-appearing spleen seen, displaced posteriorly in the left upper quadrant. There is mass effect on the stomach. Moderate volume of partially imaged ascites. Normal caliber abdominal aorta. The flow-void from the inferior vena cava is visible. No definite retroperitoneal lymphadenopathy. IMPRESSION: Very limited study. The biliary tree is not seen, suggesting that it is not significantly dilated.
--- NOTE | 2017-04-25 09:36 | PN- CRCU ---
Subjective HPI/Critical Care Issues: Continues to be intubated Ongoing dialysis Awake and arousable Afebrile In sinus rhythm with heart rate of 89 Maintaining his blood pressure however hypotensive slightly while on dialysis On assist control tidal volume of 500 FiO2 of 35% with 99% sats Continues to be on D5 normal saline at 60 mL. No significant urine output noted patient is on dialysis. Has come off vasopressors. SIGNIFICANT DATA Chest x-ray showed bilateral pleural effusions Blood work reviewed as noted Cultures were noted. Objective Current Medications: Current Medications Sig/Lola Start time Last Medication Dose Route Stop Time Status Admin Acetaminophen 650 MG .STK-MED ONE 04/24 1444 DC PO 04/24 1445 Acetaminophen 650 MG Q4P PRN 04/17 1645 AC 04/24 PO 1452 Albumin Human 25 GM ONCE ONE 04/25 0845 DC 04/25 IV 04/25 0846 0908 Albumin Human 25 GM Q8 04/22 1400 AC 04/25 IV 0533 Benzocaine/Menthol 1 MYLES Q2P PRN 04/03 1100 AC PO Bisacodyl 10 MG ONCE PRN 04/09 1330 AC [place] Collagenase 1 BENEDICTO BID 04/02 1100 AC 04/24 TOP 2100 Desvenlafaxine 50 MG MoWeFr@1300 04/20 1300 AC 04/20 Succinate PO 1252 Dextrose 12.5 GM ONCE ONE 04/24 2345 DC 04/24 IV 04/24 2346 2343 Dextrose/Sodium 1,000 ML Q16H 04/24 1745 AC 04/24 Chloride IV 2052 Dextrose/Sodium 1,000 ML Q13H 04/21 2345 DC 04/24 Chloride IV 1300 Epoetin Bryan 3,000 UNIT 03/30 1000 AC 04/22 IV 0945 Glycerin 2 SPRAY Q2P PRN 04/01 2045 AC PO Heparin Sodium 5,000 UNIT Q8 03/28 1444 DC 04/24 (Porcine) SC 1451 Meropenem 1 GM DAILY 04/24 1000 AC 04/24 IV 1025 Morphine Sulfate 2 MG Q4P PRN 04/19 1145 AC 04/25 IV 0254 Multivitamins 1 TAB 1700 03/25 1700 AC 04/24 PO 1525 Ondansetron HCl 4 MG Q6P PRN 04/12 0845 AC 04/22 IV 0130 Pantoprazole Sodium 40 MG DAILY 04/21 2230 AC 04/24 IV 1025 Polyethylene Glycol 17 GM DAILY PRN 04/03 1100 AC 04/06 PO 1850 Potassium Phosphate 15 mMol ONE ONE 04/25 0745 AC Sodium Chloride 250 ML IV 04/25 1149 Senna/Docusate Sodium 1 TAB BID PRN 04/06 1500 AC 04/13 PO 1308 Verapamil HCl 180 MG DAILY 03/25 0745 AC 04/19 PO 0836 Vital Signs & I&O Last 24 Hrs of Vitals and I&O: Vital Signs Date Time Temp Pulse Resp B/P B/P Pulse O2 O2 Flow FiO2 Mean Ox Delivery Rate 04/25 0632 35 04/25 0400 100 Ventilator 35% 04/25 0343 35 04/25 0057 35 04/25 0000 98.0 84 18 120/70 98 Ventilator 35% 04/25 0000 98 Ventilator 35% 04/24 2237 35 04/24 2000 97 Ventilator 35% 04/24 1940 35 04/24 1640 35 04/24 1600 98.0 80 18 106/64 98 Ventilator 35% 04/24 1600 96 Ventilator 35% 04/24 1349 35 04/24 1200 97 Ventilator 35% 04/24 1025 74 103/73 Intake & Output 04/25 1600 04/25 0800 04/25 0000 Intake Total 549 661 Output Total 230 1520 Balance 319 -859 Intake, IV 549 571 Intake, Oral 0 0 Intake, Tube 90 Irrigant Output, 150 170 Gastric Drainage Output, Other 80 1350 Output, Urine 0 Impression/Plan Impression/Plan Impression/Plan: He is awake and alert on the ventilator Neck dialysis catheter in the right IJ with no inflammation at the site; triple- lumen catheter in the left subclavian with no inflammation at the site Lungs are clear anteriorly Heart regular rhythm with no murmur Abdomen is distended, tender on palpation diffusely, with positive bowel sounds; J-tube site dressing was saturated with serous drainage Extremities no cyanosis, clubbing or edema IMPRESSION Mr. Tijerina is a 66 yo m with a PMH of PKD, Polycystic liver disease, portal HTN , HTN, HLD, umbilical hernia repair, colon ademona, GERD who presented to the ED with NVD with progressively worsened abdominal distention from ascitic fluid. 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
--- NOTE | 2017-04-25 10:13 | PN- General Surgery ---
Surgical Brief Attending Note Brief Attending Note: stable off pressors now. leaking ascites around j tube. recommend paracentesis today. Ok to start trophic feeds today.
--- NOTE | 2017-04-25 10:32 | PN- Infect Dx ---
Subjective Subjective: Afebrile. His blood pressure has remained stable off pressors, though it has just decreased on dialysis. He does not offer any complaints but is quite lethargic and unable to provide a history on the ventilator. Objective Last 24 Hrs of Vital Signs/I&O Vital Signs Date Time Temp Pulse Resp B/P B/P Pulse O2 O2 Flow FiO2 Mean Ox Delivery Rate 04/25 1005 98.8 90 18 83/62 04/25 0900 35 04/25 0632 35 04/25 0400 100 Ventilator 35% 04/25 0343 35 04/25 0057 35 04/25 0000 98.0 84 18 120/70 98 Ventilator 35% 04/25 0000 98 Ventilator 35% 04/24 2237 35 04/24 2000 97 Ventilator 35% 04/24 1940 35 04/24 1640 35 04/24 1600 98.0 80 18 106/64 98 Ventilator 35% 04/24 1600 96 Ventilator 35% 04/24 1349 35 04/24 1200 97 Ventilator 35% 04/24 1025 74 103/73 Intake & Output 04/25 1600 04/25 0800 04/25 0000 Intake Total 549 661 Output Total 230 1520 Balance 319 -859 Intake, IV 549 571 Intake, Oral 0 0 Intake, Tube 90 Irrigant Output, 150 170 Gastric Drainage Output, Other 80 1350 Output, Urine 0 Physical Exam Other Physical Findings: He is lethargic but arousable on the ventilator, appearing cachectic Neck dialysis catheter in the right IJ and triple lumen catheter in the left subclavian with no inflammation at the sites Lungs are clear Heart regular rhythm with no murmur Abdomen is distended, tender on palpation; bloody ascitic fluid draining around the recently placed J-tube Extremities no cyanosis, clubbing or edema Results Last 24 Hours of Lab Results: Laboratory Tests 04/25 0425 Chemistry Sodium (137 - 145 mmol/L) 144 Potassium (3.5 - 5.1 mmol/L) 3.6 Chloride (98 - 107 mmol/L) 108 H Carbon Dioxide (22 - 30 mmol/L) 17 L Anion Gap (5 - 16) 18 H BUN (9 - 20 mg/dL) 44 H Creatinine (0.7 - 1.2 mg/dL) 2.8 H Estimated GFR (>60 ml/min) 23 L Glucose (65 - 99 mg/dL) 61 L Calcium (8.4 - 10.2 mg/dL) 8.9 Phosphorus (2.5 - 4.5 mg/dL) 2.2 L Magnesium (1.6 - 2.3 mg/dL) 1.8 Total Bilirubin (0.2 - 1.3 mg/dL) 7.8 H AST (17 - 59 U/L) 96 H ALT (21 - 72 U/L) 42 Albumin (3.5 - 5.0 g/dL) 2.9 L Hematology CBC w Diff NO MAN DIFF REQ WBC (4.8 - 10.8 /CUMM) 14.9 H RBC (4.70 - 6.10 /CUMM) 3.42 L Hgb (14.0 - 18.0 G/DL) 8.8 L Hct (42 - 52 %) 27.0 L MCV (80.0 - 94.0 FL) 79.1 L MCH (27.0 - 31.0 PG) 25.6 L MCHC (33.0 - 37.0 G/DL) 32.4 L RDW (11.5 - 14.5 %) 22.4 H Plt Count (130 - 400 /CUMM) 63 L MPV (7.4 - 10.4 FL) 10.1 Gran % (42.2 - 75.2 %) 89.5 H Lymphocytes % (20.5 - 51.1 %) 6.2 L Monocytes % (1.7 - 9.3 %) 3.8 Eosinophils % (0 - 5 %) 0.4 Basophils % (0.0 - 2.0 %) 0.1 Absolute Granulocytes (1.4 - 6.5 /CUMM) 13.4 H Absolute Lymphocytes (1.2 - 3.4 /CUMM) 0.9 L Absolute Monocytes (0.10 - 0.60 /CUMM) 0.6 Absolute Eosinophils (0.0 - 0.7 /CUMM) 0.1 Absolute Basophils (0.0 - 0.2 /CUMM) 0 Last 24 Hours of [place] Results: OR culture labeled peritoneal abscess April 21 positive for light growth of probable Bacteroides fragilis Blood cultures 2 April 21 remain negative Assessment/Plan Impression: Condition remains poor, though he remains off pressors, with decreased oxygen requirements, temperatures normal and white blood cell count continuing to decrease on Meropenem Day 4 of treatment for peritonitis/small interloop intra- abdominal abscesses status post drainage 4 days ago, at the time of placement of the feeding jejunostomy tube, now with leakage of ascitic fluid around the tube. His transaminases continue to decrease, though his bilirubin and alkaline phosphatase are increased, likely secondary to sepsis, with his platelet count continuing to decrease also likely secondary to sepsis. His chest x-ray suggests increasing bilateral pleural effusions and further evaluation of these, including possible thoracentesis, may need to be considered. Suggestion: 1. Further management of his J-tube and leakage per Surgery, with recommendation noted for a paracentesis 2. Discontinue Meropenem 3. Begin Unasyn 3 g IV every 24 hours
[2017-04-25 15:14] LABS: PT 23.9 SEC (9.4-12.5)
[2017-04-25 18:00] VITALS: BP 102/66
[2017-04-25 23:07] LABS: PT 23.9 SEC (9.4-12.5)
[2017-04-26] VITALS: BP 110/58
--- NOTE | 2017-04-26 07:40 | PN- Resident CRCU ---
Subjective HPI/CRCU Issues: Acute respiratory failure with hypoxemia related to ongoing liver failure, sepsis, multiple organ dysfunction Peritonitis with ascites hepatic hydrothorax PCKD with renal and liver dysfunction CKD with acute renal failure on HD 24 Hour Events: Patient remains intubated Tmax 98.8 Heart rate 107 t092 sinus rhythm to sinus tachycardia respiratory rate within normal limits borderline blood pressure 92/74,88/64 102/60 AC mode, FiO2 35%, Vt 500, PEEP 5, PIP 20 Objective Vital Signs & I&O Last 8 Hrs of Vitals and I&O: Vital Signs Date Time Temp Pulse Resp B/P B/P Pulse O2 O2 Flow FiO2 Mean Ox Delivery Rate 04/26 1401 30 04/26 1145 30 04/26 1100 86 92/70 04/26 0845 30 04/26 0710 30 04/26 0400 98 Ventilator 30% 04/26 0355 30 04/26 0102 30 04/26 0000 99 Ventilator 30% 04/26 0000 99.9 92 18 110/58 99 Ventilator 30% 04/25 2226 30 04/25 2015 93 95/68 04/25 2000 98 Ventilator 30% 04/25 1955 30 04/25 1800 99 Ventilator 30% 04/25 1800 98.6 89 18 102/66 99 Ventilator 30% 04/25 1605 35 04/25 1441 35 Intake & Output 04/26 1600 04/26 0800 04/26 0000 Intake Total 1351 985 Output Total 800 495 Balance 551 490 Intake, Blood 598 Product Intake, IV 579 907 Intake, Oral 0 0 Intake, Tube 84 48 Feeding Intake, Tube 90 30 Irrigant Number 0 Bowel Movements Output, 150 150 Gastric Drainage Output, Other 650 345 Output, Urine 0 Exam General Appearance: intubated, lethargic Head: atraumatic, normal appearance Neck: normal inspection Respiratory: normal breath sounds, chest non-tender Cardiovascular: S1 S2 Gastrointestinal: distention, Jtube, midline sutures Extremities: no edema Skin: Sacral decubitis ulcer Current Medications: Current Medications Sig/Lola Start time Last Medication Dose Route Stop Time Status Admin Acetaminophen 650 MG Q4P PRN 04/17 1645 AC 04/24 PO 1452 Albumin Human 25 GM Q8 04/22 1400 DC 04/26 IV 0601 Ampicillin Sodium/ 3,000 MG Q24H 04/25 1300 AC 04/25 Sulbactam Sodium IV 1422 Sodium Chloride 100 ML Benzocaine/Menthol 1 MYLES Q2P PRN 04/03 1100 AC PO Bisacodyl 10 MG ONCE PRN 04/09 1330 AC FL Collagenase 1 BENEDICTO BID 04/02 1100 AC 04/26 TOP 1100 Desvenlafaxine 50 MG MoWeFr@1300 04/20 1300 AC 04/25 Succinate PO 1422 Dextrose 25 GM ONCE ONE 04/25 1630 DC 04/25 IV 04/25 1631 1631 Dextrose/Sodium 1,000 ML Q16H 04/24 1745 AC 04/26 Chloride IV 0216 Epoetin Bryan 3,000 UNIT 03/30 1000 AC 04/25 IV 1130 Glycerin 2 SPRAY Q2P PRN 04/01 2045 AC PO Magnesium Sulfate 1 GM ONCE ONE 04/26 0845 AC 04/26 Dextrose/Water 100 ML IV 04/26 1244 1100 Meropenem 1 GM DAILY 04/24 1000 DC 04/25 IV 0940 Morphine Sulfate 2 MG Q4P PRN 04/19 1145 AC 04/25 IV 2008 Multivitamins 1 TAB 1700 03/25 1700 AC 04/25 PO 1743 Norepinephrine 4 MG Q24H 04/25 2130 DC 04/25 Sodium Chloride 250 ML IV 2015 Ondansetron HCl 4 MG Q6P PRN 04/12 0845 AC 04/22 IV 0130 Pantoprazole Sodium 40 MG DAILY 04/21 2230 AC 04/26 IV 1059 Phosphate 250 MG PC AND AT BEDTIME 04/26 0900 AC 04/26 PO 1000 Phytonadione 10 MG ONCE ONE 04/25 1330 DC 04/25 SC 04/25 1331 1421 Polyethylene Glycol 17 GM DAILY PRN 04/03 1100 AC 04/06 PO 1850 Potassium Chloride 40 MEQ BID 04/26 1000 AC 04/26 PO 04/27 1001 1100 Potassium Phosphate 15 mMol ONE ONE 04/25 0745 DC 04/25 Sodium Chloride 250 ML IV 04/25 1149 0940 Senna/Docusate Sodium 1 TAB BID PRN 04/06 1500 AC 04/13 PO 1308 Verapamil HCl 180 MG DAILY 03/25 0745 AC 04/19 PO 0836 Impression/Plan Impression/Problem List Impression: Mr. Tijerina is a 66 yo m with a PMH of PKD, Polycystic liver disease, portal HTN , HTN, HLD, umbilical hernia repair, colon ademona, GERD who presented to the ED with NVD with progressively worsened abdominal distention from ascitic fluid. Assessment and Plan: 1. Hypotension 2. Ascites likely secondary to Portal Hypertension 3. Thrombocytopenia/low fibrinogen 4. Elevated INR 5. ESRD 6. Depression 7. Catheter-associated Peritonitis - resolved 8. Nonsustained SVT - currently resolved 9. Acute Hypoxic Respiratory Failure - resolved 10. SHELBY on CKD - resolved 11. History of Polycystic Kidney and Liver disease Plan: 1. Respiratory: Continues to be intubated with FiO2 of 35%. 2. Infectious: Has been afebrile in the past 24 hours.OR cultures show growth of anerobic gram negative rods, which is most likely Bacteroides. The patient was previously on Meropenem -Currently he is on Unasyn and we are going to continueIV Unasyn 3g OD (renal adjusted dose) per ID. -F/U final OR report -Monitoring FEVER AND WBC count white cell count 8.4 3. Metabolic- Underwent dialysis yesterday and was hypotensive. He was started on norepinephrine and weaned off levo . He also received fluids and albumin prior dialysis to maintain his blood pressure. If needed, he can be started 5% albumin to increase the amount of fluids. -Discontinue IV Albumin 25mg q8 with serum Alb > 3 -HD tomorrow -Monitor BEP and replete electrolytes accordingly 4. Hematology- There has been an acute drop in platelets, likely due to sepsis. SC heparin has been dc'd. Fibrinogen has been low. This could represent DIC. Will continue to follow DIC panel (INR, fibrinogen levels). If level <100, can give cryoprecipitate. -H/H7.04/04, WBC 8.4, platelets 33 -All cell lines are depressed, hemodilution? Repeat CBC at 12 PM 5. Alimentary- Had a new Jej tube placed last week. There is drainage from the J tube due to reaccumulating ascitic fluid. Tube feedings were started today via OG tube with Vital AF with a goal rate of 10cc/hr. -Ascites likely secondary to Portal Hypertension, therapeutic paracentesis. We will maintain patient's blood pressure by giving him albumin. 6. Cardiovascular - He previously has had runs of NSVT. He will need to be restarted on his Metoprolol once his blood pressure becomes more stable. Tube feedings with Vital AF/DVT Prophylaxis with ALPS/ Full Code. states patient has a living will that says DNR/DNI, which she is supposed to bring in. Problem List: 1. Peritonitis 2. Portal hypertension 3. Ascites 4. Hydrothorax 5. ESRD (end stage renal disease) Pain Ratin Tomorrow's Labs & Rationales: cbc icu bundle inr lfts fibriogen Plan DVT/Prophylaxis: mechanical
[2017-04-26 08:00] VITALS: BP 102/60
[2017-04-26 08:26] LABS: ABSOLUTE BASOPHIL COUNT 0 /CUMM (0.0-0.2); ABSOLUTE EOSINOPHIL COUNT 0 /CUMM (0.0-0.7); ABSOLUTE GRANULOCYTE CT 6.4 /CUMM (1.4-6.5); ABSOLUTE LYMPH COUNT 1.3 /CUMM (1.2-3.4); ABSOLUTE MONOCYTE COUNT 0.6 /CUMM (0.10-0.60); BASOPHIL % 0.1 % (0.0-2.0); EOSINOPHIL % 0.3 % (0-5); MEAN CORPUSCULAR HGB 25.5 PG (27.0-31.0); MEAN CORPUSCULAR HGB CONC 32.6 G/DL (33.0-37.0); MEAN CORPUSCULAR VOLUME 78.2 FL (80.0-94.0); RBC DISTRIBUTION WIDTH 22.6 % (11.5-14.5); WHITE BLOOD CELL COUNT 8.4 /CUMM (4.8-10.8)
[2017-04-26 08:29] LABS: PT 16.9 SEC (9.4-12.5); PTT 52 SEC (25-37)
[2017-04-26 08:38] LABS: GRANULOCYTE % 76.8 % (42.2-75.2); HEMATOCRIT 21.9 % (42-52); PLATELET COUNT 37 /CUMM (130-400)
--- NOTE | 2017-04-26 09:24 | RADIOLOGY REPORT ---
EXAMINATION: CR PORTABLE CHEST CLINICAL INFORMATION: Confirmation of lines and tubes. Pleural effusion. COMPARISON: Several prior chest x-rays, most recent of which is dated 04/24/2017. TECHNIQUE: Portable AP semierect view of the chest was obtained. FINDINGS: Endotracheal tube tip approximately 5 cm from the holley. Enteric tube courses into the abdomen with course followed down to the gastric body level with tip poorly visualized. Large bore right jugular central venous line is at the cavoatrial junction. The cardiomediastinal silhouette is within normal limits in size. Low lung volumes are seen with bilateral layering pleural effusions and associated mid and lower lung parenchymal opacities, unchanged compared to prior exam. Central vascular congestion again noted. No pneumothorax is seen. Bony structures are grossly unremarkable. IMPRESSION: 1. Endotracheal tube tip 5 cm above the holley. 2. Enteric tube courses into the abdomen with tip not seen. 3. Large bore right jugular central venous line at the cavoatrial junction. 4. No significant change in bilateral pleural effusions and associated mid and lower lung parenchymal opacities, likely related to atelectasis or pneumonia. 5. Central vascular congestion persists unchanged.
--- NOTE | 2017-04-26 09:32 | PN- CRCU ---
Subjective HPI/Critical Care Issues: Continues to be critically ill Afebrile Hypotensive now off pressors Continues to be met intravenous fluid No urine output Significant data reviewed Continues to be lethargic. Objective Current Medications: Current Medications Sig/Lola Start time Last Medication Dose Route Stop Time Status Admin Acetaminophen 650 MG Q4P PRN / 1645 AC 04/24 PO 1452 Albumin Human 25 GM Q8 04/22 1400 AC 04/26 IV 0601 Ampicillin Sodium/ 3,000 MG Q24H 04/25 1300 AC 04/25 Sulbactam Sodium IV 1422 Sodium Chloride 100 ML Benzocaine/Menthol 1 MYLES Q2P PRN 04/03 1100 AC PO Bisacodyl 10 MG ONCE PRN 04/09 1330 AC [place] Collagenase 1 BENEDICTO BID 04/02 1100 AC 04/25 TOP 2125 Desvenlafaxine 50 MG MoWeFr@1300 04/20 1300 AC 04/25 Succinate PO 1422 Dextrose 25 GM ONCE ONE 04/25 1630 DC 04/25 IV 04/25 1631 1631 Dextrose/Sodium 1,000 ML Q16H 04/24 1745 AC 04/26 Chloride IV 0216 Epoetin Bryan 3,000 UNIT 03/30 1000 AC 04/25 IV 1130 Glycerin 2 SPRAY Q2P PRN 04/01 2045 AC PO Magnesium Sulfate 1 GM ONCE ONE 04/26 0845 AC Dextrose/Water 100 ML IV 04/26 1244 Meropenem 1 GM DAILY 04/24 1000 DC 04/25 IV 0940 Morphine Sulfate 2 MG Q4P PRN 04/19 1145 AC 04/25 IV 2008 Multivitamins 1 TAB 1700 03/25 1700 AC 04/25 PO 1743 Norepinephrine 4 MG Q24H 04/25 2130 DC 04/25 Sodium Chloride 250 ML IV 2015 Norepinephrine 4 MG ONCE ONE 04/25 1000 DC 04/25 Sodium Chloride 250 ML IV 04/25 1001 1005 Norepinephrine 4 MG .STK-MED ONE 04/25 1000 DC IV 04/25 1001 Ondansetron HCl 4 MG Q6P PRN 04/12 0845 AC 04/22 IV 0130 Pantoprazole Sodium 40 MG DAILY 04/21 2230 AC 04/25 IV 0940 Phosphate 250 MG PC AND AT BEDTIME 04/26 0900 AC PO Phytonadione 10 MG ONCE ONE 04/25 1330 DC 04/25 WA 04/25 1331 1421 Polyethylene Glycol 17 GM DAILY PRN 04/03 1100 AC 04/06 PO 1850 Potassium Chloride 40 MEQ BID 04/26 1000 AC PO 04/27 1001 Potassium Phosphate 15 mMol ONE ONE 04/25 0745 DC 04/25 Sodium Chloride 250 ML IV 04/25 1149 0940 Senna/Docusate Sodium 1 TAB BID PRN 04/06 1500 AC 04/13 PO 1308 Verapamil HCl 180 MG DAILY 03/25 0745 AC 04/19 PO 0836 Vital Signs & I&O Last 24 Hrs of Vitals and I&O: Vital Signs Date Time Temp Pulse Resp B/P B/P Pulse O2 O2 Flow FiO2 Mean Ox Delivery Rate 04/26 0710 30 04/26 0400 98 Ventilator 30% 04/26 0355 30 04/26 0102 30 04/26 0000 99 Ventilator 30% 04/26 0000 99.9 92 18 110/58 99 Ventilator 30% 04/25 2226 30 04/25 2015 93 95/68 04/25 2000 98 Ventilator 30% 04/25 1955 30 04/25 1800 99 Ventilator 30% 04/25 1800 98.6 89 18 102/66 99 Ventilator 30% 04/25 1605 35 04/25 1441 35 04/25 1200 100 Ventilator 35% 04/25 1128 35 04/25 1005 98.8 90 18 83/62 Intake & Output 04/26 1600 04/26 0800 04/26 0000 Intake Total 1351 985 Output Total 800 495 Balance 551 490 Intake, Blood 598 Product Intake, IV 579 907 Intake, Oral 0 0 Intake, Tube 84 48 Feeding Intake, Tube 90 30 Irrigant Number 0 Bowel Movements Output, 150 150 Gastric Drainage Output, Other 650 345 Output, Urine 0 Impression/Plan Impression/Plan Impression/Plan: He is awake and alert on the ventilator, lethargic Neck dialysis catheter in the right IJ with no inflammation at the site; triple- lumen catheter in the left subclavian with no inflammation at the site Lungs are clear anteriorly Heart regular rhythm with no murmur Abdomen is distended, tender on palpation diffusely, with positive bowel sounds; J-tube site dressing was saturated with serous drainage Extremities no cyanosis, clubbing or edema IMPRESSION Mr. Tijerina is a 66 yo m with a PMH of PKD, Polycystic liver disease, portal HTN , HTN, HLD, umbilical hernia repair, colon ademona, GERD who presented to the ED with NVD with progressively worsened abdominal distention from ascitic fluid. ISsues Acute respiratory failure with hypoxemia related to ongoing liver failure, sepsis, multiple organ dysfunction Peritonitis with asitics hepatic hydrothorax PCKD with renal and liver dysfunction CKD with acute renal failure s/p tunneled cath and first dialysis yesterday SVT now resolved Electrolyte imbalance Anemia Cachexia Status post J-tube REC Continue mechanical ventilator Continue intravenous fluids Paracentesis today J-tube management per surgery, if tolerated increase it tube feeding to 20 mL Antibiotics to continue per ID Dialysis ongoing REnal to to follow will follow PT is critically ill tts 41 mins
--- NOTE | 2017-04-26 10:12 | PN- Nephrology ---
Assessment/Plan Assessment: 1. ESRD: due to PCKD; no HD need today 2. Hypotension: improved --> prob due to sepsis & liver failure. No indication for additional SP alb IV today w serum Alb > 3 3. Hypokalemia/hypophos: supplement via GI tract Suggestion: HD tomorrow D/C IV SP Alb Subjective Subjective: Remains on vent - lethargic but arouseable Required NE again yesterday during HD but tapered off w systolic ~ 100 J tube feeding underway Objective Vital Signs and I&Os Vital Signs Date Time Temp Pulse Resp B/P B/P Pulse O2 O2 Flow FiO2 Mean Ox Delivery Rate 04/26 0710 30 04/26 0400 98 Ventilator 30% 04/26 0355 30 04/26 0102 30 04/26 0000 99 Ventilator 30% 04/26 0000 99.9 92 18 110/58 99 Ventilator 30% 04/25 2226 30 04/25 2015 93 95/68 04/25 2000 98 Ventilator 30% 04/25 1955 30 04/25 1800 99 Ventilator 30% 04/25 1800 98.6 89 18 102/66 99 Ventilator 30% 04/25 1605 35 04/25 1441 35 04/25 1200 100 Ventilator 35% 04/25 1128 35 Intake & Output 04/26 1600 04/26 0400 04/25 1600 04/25 0400 04/24 1600 04/24 0400 Intake Total 3911 855 2044 661 1405 828 Output Total 800 906 758 8468 455 200 Balance 551 490 851 -859 950 628 Intake, Blood 598 Product Intake, IV 920 740 1251 571 1325 828 Intake, Oral 0 0 0 0 Intake, Other 40 80 Intake, Tube 84 48 Feeding Intake, Tube 90 30 90 Irrigant Number 0 0 2 Bowel Movements Output, 150 150 250 170 455 200 Gastric Drainage Output, Other 650 061 156 3660 Output, Urine 0 0 Physical Exam General Appearance: cachetic, intubated Head: atraumatic Neck: R IJ HD cath Respiratory: decreased breath sounds, rhonchi Cardiovascular: regular rate/rhythm, friction rub (none) Abdomen: distention, tenderness Extremities: no edema Neurologic/Psychiatric: awake Skin: jaundice Current Medications: Current Medications Sig/Lola Start time Last Medication Dose Route Stop Time Status Admin Acetaminophen 650 MG Q4P PRN 04/17 1645 AC 04/24 PO 1452 Albumin Human 25 GM Q8 04/22 1400 AC 04/26 IV 0601 Ampicillin Sodium/ 3,000 MG Q24H 04/25 1300 AC 04/25 Sulbactam Sodium IV 1422 Sodium Chloride 100 ML Benzocaine/Menthol 1 MYLES Q2P PRN 04/03 1100 AC PO Bisacodyl 10 MG ONCE PRN 04/[address] Collagenase 1 BENEDICTO BID 04/02 1100 AC 04/25 TOP 2125 Desvenlafaxine 50 MG MoWeFr@1300 04/20 1300 AC 04/25 Succinate PO 1422 Dextrose 25 GM ONCE ONE 04/25 1630 DC 04/25 IV 04/25 1631 1631 Dextrose/Sodium 1,000 ML Q16H 04/24 1745 AC 04/26 Chloride IV 0216 Epoetin Bryan 3,000 UNIT 03/30 1000 AC 04/25 IV 1130 Glycerin 2 SPRAY Q2P PRN 04/01 2045 AC PO Magnesium Sulfate 1 GM ONCE ONE 04/26 0845 AC Dextrose/Water 100 ML IV 04/26 1244 Meropenem 1 GM DAILY 04/24 1000 DC 04/25 IV 0940 Morphine Sulfate 2 MG Q4P PRN 04/19 1145 AC 04/25 IV 2008 Multivitamins 1 TAB 1700 03/25 1700 AC 04/25 PO 1743 Norepinephrine 4 MG Q24H 04/25 2130 DC 04/25 Sodium Chloride 250 ML IV 2015 Ondansetron HCl 4 MG Q6P PRN 04/12 0845 AC 04/22 IV 0130 Pantoprazole Sodium 40 MG DAILY 04/21 2230 AC 04/25 IV 0940 Phosphate 250 MG PC AND AT BEDTIME 04/26 0900 AC PO Phytonadione 10 MG ONCE ONE 04/25 1330 DC 04/25 SC 04/25 1331 1421 Polyethylene Glycol 17 GM DAILY PRN 04/03 1100 AC 04/06 PO 1850 Potassium Chloride 40 MEQ BID 04/26 1000 AC PO 04/27 1001 Potassium Phosphate 15 mMol ONE ONE 04/25 0745 DC 04/25 Sodium Chloride 250 ML IV 04/25 1149 0940 Senna/Docusate Sodium 1 TAB BID PRN 04/06 1500 AC 04/13 PO 1308 Verapamil HCl 180 MG DAILY 03/25 0745 AC 04/19 PO 0836 Results Pertinent Lab Results: Laboratory Tests 04/26 04/26 0820 0705 Blood Gas pH (7.35 - 7.45 PH) 7.53 H pCO2 (35 - 45 TORR) 23 L pO2 (80 - 100 TORR) 91 HCO3 (21 - 28 MEQ/L) 19 L ABG O2 Sat (Measured) (>96.0 %) 96.0 P-50 (Temp Corrected) N Carboxyhemoglobin (1.5 - 5.0 %) 1.1 L O2 Concentration % 30% Temperature (97.0 - 100.0 FARH) 99.9 Respiration Rate (BPM) 18 O2 Delivery Method VENT Vent Mode VC-AC Expiratory Pressure (CMH2O/P) 5 Tidal Volume (CC) 500 Chemistry Sodium (137 - 145 mmol/L) 144 Potassium (3.5 - 5.1 mmol/L) 3.4 L Chloride (98 - 107 mmol/L) 105 Carbon Dioxide (22 - 30 mmol/L) 21 L Anion Gap (5 - 16) 18 H BUN (9 - 20 mg/dL) 28 H Creatinine (0.7 - 1.2 mg/dL) 2.0 H Estimated GFR (>60 ml/min) 33 L Glucose (65 - 99 mg/dL) 85 Calcium (8.4 - 10.2 mg/dL) 9.2 Phosphorus (2.5 - 4.5 mg/dL) 2.3 L Magnesium (1.6 - 2.3 mg/dL) 1.7 Total Bilirubin (0.2 - 1.3 mg/dL) 7.7 H Direct Bilirubin (< 0.4 mg/dL) 5.4 H AST (17 - 59 U/L) 31 ALT (21 - 72 U/L) 23 Alkaline Phosphatase (< 127 U/L) 174 H Total Protein (6.3 - 8.2 g/dL) 5.4 L Albumin (3.5 - 5.0 g/dL) 3.1 L Coagulation PT (9.4 - 12.5 SEC) 16.9 H INR (0.90 - 1.17) 1.62 H APTT (25 - 37 SEC) 52 H Fibrinogen Activity (200 - 393 MG/DL) 164 L Hematology CBC w Diff NO MAN DIFF REQ WBC (4.8 - 10.8 /CUMM) 8.4 RBC (4.70 - 6.10 /CUMM) 2.80 L Hgb (14.0 - 18.0 G/DL) 7.1 *L Hct (42 - 52 %) 21.9 L MCV (80.0 - 94.0 FL) 78.2 L MCH (27.0 - 31.0 PG) 25.5 L MCHC (33.0 - 37.0 G/DL) 32.6 L RDW (11.5 - 14.5 %) 22.6 H Plt Count (130 - 400 /CUMM) 37 L MPV (7.4 - 10.4 FL) 10.0 Gran % (42.2 - 75.2 %) 76.8 H Lymphocytes % (20.5 - 51.1 %) 15.6 L Monocytes % (1.7 - 9.3 %) 7.2 Eosinophils % (0 - 5 %) 0.3 Basophils % (0.0 - 2.0 %) 0.1 Absolute Granulocytes (1.4 - 6.5 /CUMM) 6.4 Absolute Lymphocytes (1.2 - 3.4 /CUMM) 1.3 Absolute Monocytes (0.10 - 0.60 /CUMM) 0.6 Absolute Eosinophils (0.0 - 0.7 /CUMM) 0 Absolute Basophils (0.0 - 0.2 /CUMM) 0 Miscellaneous Phlebotomy Draw Site RIGHT RADIAL 04/25 04/25 04/25 04/25 2200 1448 1448 1335 Chemistry Ammonia (9 - 30 umol/L) 9 Coagulation PT (9.4 - 12.5 SEC) 23.9 H 23.9 H INR (0.90 - 1.17) 2.29 H 2.29 H Fibrinogen Activity (200 - 393 MG/DL) 128 L Other Body Source Fluid WBC Cancelled Fld Total RBCs Counted Cancelled Fluid Albumin Cancelled 04/25 04/25 04/25 1219 1219 0425 Chemistry Sodium (137 - 145 mmol/L) 144 Potassium (3.5 - 5.1 mmol/L) 3.6 Chloride (98 - 107 mmol/L) 108 H Carbon Dioxide (22 - 30 mmol/L) 17 L Anion Gap (5 - 16) 18 H BUN (9 - 20 mg/dL) 44 H Creatinine (0.7 - 1.2 mg/dL) 2.8 H Estimated GFR (>60 ml/min) 23 L Glucose (65 - 99 mg/dL) 61 L Calcium (8.4 - 10.2 mg/dL) 8.9 Phosphorus (2.5 - 4.5 mg/dL) 2.2 L Magnesium (1.6 - 2.3 mg/dL) 1.8 Total Bilirubin (0.2 - 1.3 mg/dL) 7.8 H AST (17 - 59 U/L) 96 H ALT (21 - 72 U/L) 42 Albumin (3.5 - 5.0 g/dL) 2.9 L Hematology CBC w Diff NO MAN DIFF REQ WBC (4.8 - 10.8 /CUMM) 14.9 H RBC (4.70 - 6.10 /CUMM) 3.42 L Hgb (14.0 - 18.0 G/DL) 8.8 L Hct (42 - 52 %) 27.0 L MCV (80.0 - 94.0 FL) 79.1 L MCH (27.0 - 31.0 PG) 25.6 L MCHC (33.0 - 37.0 G/DL) 32.4 L RDW (11.5 - 14.5 %) 22.4 H Plt Count (130 - 400 /CUMM) 63 L MPV (7.4 - 10.4 FL) 10.1 Gran % (42.2 - 75.2 %) 89.5 H Lymphocytes % (20.5 - 51.1 %) 6.2 L Monocytes % (1.7 - 9.3 %) 3.8 Eosinophils % (0 - 5 %) 0.4 Basophils % (0.0 - 2.0 %) 0.1 Absolute Granulocytes (1.4 - 6.5 /CUMM) 13.4 H Absolute Lymphocytes (1.2 - 3.4 /CUMM) 0.9 L Absolute Monocytes (0.10 - 0.60 /CUMM) 0.6 Absolute Eosinophils (0.0 - 0.7 /CUMM) 0.1 Absolute Basophils (0.0 - 0.2 /CUMM) 0 Other Body Source Fluid WBC Cancelled Fld Total RBCs Counted Cancelled Fluid Albumin Cancelled 04/24 04/23 0450 1150 Blood Gas pH (7.35 - 7.45 PH) 7.42 pCO2 (35 - 45 TORR) 29 L pO2 (80 - 100 TORR) 91 HCO3 (21 - 28 MEQ/L) 18 L ABG O2 Sat (Measured) (>96.0 %) 95.0 L P-50 (Temp Corrected) Y Carboxyhemoglobin (1.5 - 5.0 %) 0.9 L O2 Concentration % 40% Temperature (97.0 - 100.0 FARH) 100.1 H Respiration Rate (BPM) 18 O2 Delivery Method VENT Vent Mode VC-AC Expiratory Pressure (CMH2O/P) 5 Tidal Volume (CC) 500 Chemistry Sodium (137 - 145 mmol/L) 144 Potassium (3.5 - 5.1 mmol/L) 3.3 L Chloride (98 - 107 mmol/L) 106 Carbon Dioxide (22 - 30 mmol/L) 21 L Anion Gap (5 - 16) 17 H BUN (9 - 20 mg/dL) 33 H Creatinine (0.7 - 1.2 mg/dL) 2.6 H Estimated GFR (>60 ml/min) 25 L Glucose (65 - 99 mg/dL) 73 Calcium (8.4 - 10.2 mg/dL) 8.5 Phosphorus (2.5 - 4.5 mg/dL) 2.3 L Magnesium (1.6 - 2.3 mg/dL) 1.9 Total Bilirubin (0.2 - 1.3 mg/dL) 6.2 H AST (17 - 59 U/L) 210 H ALT (21 - 72 U/L) 73 H Albumin (3.5 - 5.0 g/dL) 2.7 L Coagulation PT (9.4 - 12.5 SEC) 31.5 H INR (0.90 - 1.17) 3.03 H APTT (25 - 37 SEC) 83 H Fibrinogen Activity (200 - 393 MG/DL) 128 L Hematology CBC w Diff NO MAN DIFF REQ WBC (4.8 - 10.8 /CUMM) 16.7 H RBC (4.70 - 6.10 /CUMM) 2.95 L Hgb (14.0 - 18.0 G/DL) 7.7 L Hct (42 - 52 %) 23.6 L MCV (80.0 - 94.0 FL) 79.8 L MCH (27.0 - 31.0 PG) 25.9 L MCHC (33.0 - 37.0 G/DL) 32.5 L RDW (11.5 - 14.5 %) 22.4 H Plt Count (130 - 400 /CUMM) 76 L MPV (7.4 - 10.4 FL) 9.8 Gran % (42.2 - 75.2 %) 87.7 H Lymphocytes % (20.5 - 51.1 %) 7.5 L Monocytes % (1.7 - 9.3 %) 4.3 Eosinophils % (0 - 5 %) 0.2 Basophils % (0.0 - 2.0 %) 0.3 Absolute Granulocytes (1.4 - 6.5 /CUMM) 14.7 H Absolute Lymphocytes (1.2 - 3.4 /CUMM) 1.2 Absolute Monocytes (0.10 - 0.60 /CUMM) 0.7 H Absolute Eosinophils (0.0 - 0.7 /CUMM) 0 Absolute Basophils (0.0 - 0.2 /CUMM) 0 Miscellaneous Phlebotomy Draw Site RIGHT RADIAL
--- NOTE | 2017-04-26 11:51 | PN- Infect Dx ---
Subjective Subjective: Afebrile. His blood pressure is stable off pressors. Objective Last 24 Hrs of Vital Signs/I&O Vital Signs Date Time Temp Pulse Resp B/P B/P Pulse O2 O2 Flow FiO2 Mean Ox Delivery Rate 04/26 1100 86 92/70 04/26 0845 30 04/26 0710 30 04/26 0400 98 Ventilator 30% 04/26 0355 30 04/26 0102 30 04/26 0000 99 Ventilator 30% 04/26 0000 99.9 92 18 110/58 99 Ventilator 30% 04/25 2226 30 04/25 2015 93 95/68 04/25 2000 98 Ventilator 30% 04/25 1955 30 04/25 1800 99 Ventilator 30% 04/25 1800 98.6 89 18 102/66 99 Ventilator 30% 04/25 1605 35 04/25 1441 35 04/25 1200 100 Ventilator 35% Intake & Output 04/26 1600 04/26 0800 04/26 0000 Intake Total 1351 985 Output Total 800 495 Balance 551 490 Intake, Blood 598 Product Intake, IV 579 907 Intake, Oral 0 0 Intake, Tube 84 48 Feeding Intake, Tube 90 30 Irrigant Number 0 Bowel Movements Output, 150 150 Gastric Drainage Output, Other 650 345 Output, Urine 0 Physical Exam Other Physical Findings: He is lethargic but arousable on the ventilator Neck dialysis catheter in the right IJ and triple-lumen catheter in the left subclavian with no inflammation at the sites Lungs scattered rhonchi bilaterally Heart regular rhythm with no murmur Abdomen is distended, tender to palpation, with positive bowel sounds Extremities no cyanosis, clubbing or edema Results Last 24 Hours of Lab Results: Laboratory Tests 04/26 04/26 0820 0705 Blood Gas pH (7.35 - 7.45 PH) 7.53 H pCO2 (35 - 45 TORR) 23 L pO2 (80 - 100 TORR) 91 HCO3 (21 - 28 MEQ/L) 19 L ABG O2 Sat (Measured) (>96.0 %) 96.0 P-50 (Temp Corrected) N Carboxyhemoglobin (1.5 - 5.0 %) 1.1 L O2 Concentration % 30% Temperature (97.0 - 100.0 FARH) 99.9 Respiration Rate (BPM) 18 O2 Delivery Method VENT Vent Mode VC-AC Expiratory Pressure (CMH2O/P) 5 Tidal Volume (CC) 500 Chemistry Sodium (137 - 145 mmol/L) 144 Potassium (3.5 - 5.1 mmol/L) 3.4 L Chloride (98 - 107 mmol/L) 105 Carbon Dioxide (22 - 30 mmol/L) 21 L Anion Gap (5 - 16) 18 H BUN (9 - 20 mg/dL) 28 H Creatinine (0.7 - 1.2 mg/dL) 2.0 H Estimated GFR (>60 ml/min) 33 L Glucose (65 - 99 mg/dL) 85 Calcium (8.4 - 10.2 mg/dL) 9.2 Phosphorus (2.5 - 4.5 mg/dL) 2.3 L Magnesium (1.6 - 2.3 mg/dL) 1.7 Total Bilirubin (0.2 - 1.3 mg/dL) 7.7 H Direct Bilirubin (< 0.4 mg/dL) 5.4 H AST (17 - 59 U/L) 31 ALT (21 - 72 U/L) 23 Alkaline Phosphatase (< 127 U/L) 174 H Total Protein (6.3 - 8.2 g/dL) 5.4 L Albumin (3.5 - 5.0 g/dL) 3.1 L Coagulation PT (9.4 - 12.5 SEC) 16.9 H INR (0.90 - 1.17) 1.62 H APTT (25 - 37 SEC) 52 H Fibrinogen Activity (200 - 393 MG/DL) 164 L Hematology CBC w Diff NO MAN DIFF REQ WBC (4.8 - 10.8 /CUMM) 8.4 RBC (4.70 - 6.10 /CUMM) 2.80 L Hgb (14.0 - 18.0 G/DL) 7.1 *L Hct (42 - 52 %) 21.9 L MCV (80.0 - 94.0 FL) 78.2 L MCH (27.0 - 31.0 PG) 25.5 L MCHC (33.0 - 37.0 G/DL) 32.6 L RDW (11.5 - 14.5 %) 22.6 H Plt Count (130 - 400 /CUMM) 37 L MPV (7.4 - 10.4 FL) 10.0 Gran % (42.2 - 75.2 %) 76.8 H Lymphocytes % (20.5 - 51.1 %) 15.6 L Monocytes % (1.7 - 9.3 %) 7.2 Eosinophils % (0 - 5 %) 0.3 Basophils % (0.0 - 2.0 %) 0.1 Absolute Granulocytes (1.4 - 6.5 /CUMM) 6.4 Absolute Lymphocytes (1.2 - 3.4 /CUMM) 1.3 Absolute Monocytes (0.10 - 0.60 /CUMM) 0.6 Absolute Eosinophils (0.0 - 0.7 /CUMM) 0 Absolute Basophils (0.0 - 0.2 /CUMM) 0 Miscellaneous Phlebotomy Draw Site RIGHT RADIAL 04/26 04/25 04/25 04/25 0700 2200 1448 1448 Coagulation PT (9.4 - 12.5 SEC) Cancelled 23.9 H INR (0.90 - 1.17) Cancelled 2.29 H Other Body Source Fluid WBC Cancelled Fld Total RBCs Counted Cancelled Fluid Albumin Cancelled 04/25 04/25 04/25 1335 1219 1219 Chemistry Ammonia (9 - 30 umol/L) 9 Coagulation PT (9.4 - 12.5 SEC) 23.9 H INR (0.90 - 1.17) 2.29 H Fibrinogen Activity (200 - 393 MG/DL) 128 L Other Body Source Fluid WBC Cancelled Fld Total RBCs Counted Cancelled Fluid Albumin Cancelled Last 24 Hours of Clarke Results: No new cultures Recent Imaging Studies: Chest x-ray April 26 reveals no change in the bilateral pleural effusions and associated mid and lower lung parenchymal opacities Assessment/Plan Impression: Condition remains poor, though he remains off pressors, with a further decrease in his oxygen requirements, and with temperatures and white blood cell count now normal on Unasyn Day 5 of treatment for peritonitis/small interloop intra- abdominal abscesses status post drainage 5 days ago in the OR, where he underwent placement of a feeding jejunostomy tube, which is now leaking ascitic fluid. His transaminases continue to decrease, though his bilirubin remains elevated. His platelet count continues to decrease, likely secondary to sepsis. His chest x-ray suggests increasing bilateral pleural effusions, which might benefit from thoracenteses, though his respiratory status has overall improved. Suggestion: 1. Further management of his J-tube leakage per Surgery 2. Await paracentesis 3. Consider need for therapeutic thoracenteses 4. Continue Unasyn
[2017-04-26 13:08] LABS: ABSOLUTE BASOPHIL COUNT 0 /CUMM (0.0-0.2); ABSOLUTE EOSINOPHIL COUNT 0 /CUMM (0.0-0.7); ABSOLUTE GRANULOCYTE CT 6.7 /CUMM (1.4-6.5); ABSOLUTE LYMPH COUNT 1.1 /CUMM (1.2-3.4); ABSOLUTE MONOCYTE COUNT 0.7 /CUMM (0.10-0.60); BASOPHIL % 0.1 % (0.0-2.0); EOSINOPHIL % 0.3 % (0-5); GRANULOCYTE % 78.5 % (42.2-75.2); MEAN CORPUSCULAR HGB 25.5 PG (27.0-31.0); MEAN CORPUSCULAR HGB CONC 32.5 G/DL (33.0-37.0); MEAN CORPUSCULAR VOLUME 78.6 FL (80.0-94.0); MEAN PLATELET VOLUME 9.8 FL (7.4-10.4); RBC DISTRIBUTION WIDTH 22.2 % (11.5-14.5); RED BLOOD CELL CT 2.92 /CUMM (4.70-6.10); WHITE BLOOD CELL COUNT 8.5 /CUMM (4.8-10.8)
[2017-04-26 13:10] LABS: PLATELET COUNT 38 /CUMM (130-400)
--- NOTE | 2017-04-26 15:56 | PN- General Surgery ---
Surgical Brief Attending Note Brief Attending Note: appears to be tolerating tube feeds. advance. paracentesis today?
[2017-04-26 16:00] VITALS: BP 100/70
[2017-04-27] VITALS: BP 110/80
--- NOTE | 2017-04-27 01:19 | Transfer of Care Summary ---
Hospital Course Course Hospital Course: Reason for readmission to ICU: Transferred from OR for hypotension and failure to be extubated s/p J tube placement. HPI: Mr. Tijerina is a 66 yo m with a PMH of PKD, Polycystic liver disease, portal HTN, HTN, HLD, umbilical hernia repair, colon ademona, GERD who presented to the ED with NVD with progressively worsened abdominal distention from ascitic fluid. Interval Events: (Please see previous TREVOR for previous events in ICU). Mr Tijerina was previously stablized in the ICU and downgraded to the general medicine. His oral intake had been poor and due to his poor nutritional status, he was scheduled for a J tube placement with general surgery. In the OR, prior to J tube placement, approximately 5L of ascitic fluid was drained. He was administered 37.5gm of Albumin after drainage. In addition, he underwent lysis of small bowel adhesions and drainage of 3 small 1cm intraabdominal abscesses. He did have some blood loss during the procedure. Post procedure, the patient failed to be extubated and he was placed on mechanical ventilation. On returning to the ICU from OR, the patient was persistently hypotensive requiring the need for pressors, fluid bolus and albumin. His CBC showed anemia requiring two units of pRBC. In addition, he was started on antibiotics for intraabdominal infection/peritonitis. While he has been weaned off pressors he intermittently requires the need for pressors during dialysis which tends to drop his blood pressure. A few days after placement of J tube, the patient's abdomen showed signs of fluid recollection with significant drainage through the tube. He may require abdominal paracentesis to relieve pressure on his surgical sutures. In the meantime, his antibiotics can be continued. Other things to keep an eye on is his DIC panel. His fibrinogen has been decreasing along with Plt count. Goals of care discussion with family as patient's prognosis is poor. Assessment/Plan: Assessment 1. Hypotension 2. Ascites likely secondary to Portal Hypertension 3. Thrombocytopenia/low fibrinogen 4. Elevated INR 5. ESRD 6. Depression 7. Catheter-associated Peritonitis - resolved 8. Nonsustained SVT - currently resolved 9. Acute Hypoxic Respiratory Failure - resolved 10. SHELBY on CKD - resolved 11. History of Polycystic Kidney and Liver disease Plan: * Continue antibiotics as per ID * Monitor DIC panel * Monitor CBC * Continue scheduled dialysis. * Goals of care discussion with family as prognosis is poor. * Continue IV Albumin 25mg q8. Can give additional doses if needed. * Continue DesVenlafaxine for depression. * Tigan/Zofran for nausea as needed * He will need to be restarted on his Metoprolol once his blood pressure becomes more stable. * Diet: Continue tube feeds and advance rate as tolerated. * DVT Prophylaxis: * Code: Full Code. states patient has a living will that says DNR/DNI. Confirm code status
[2017-04-27 05:13] LABS: ABSOLUTE BASOPHIL COUNT 0 /CUMM (0.0-0.2); ABSOLUTE EOSINOPHIL COUNT 0 /CUMM (0.0-0.7); ABSOLUTE GRANULOCYTE CT 1.9 /CUMM (1.4-6.5); ABSOLUTE MONOCYTE COUNT 0.5 /CUMM (0.10-0.60); BASOPHIL % 0.5 % (0.0-2.0); EOSINOPHIL % 0.6 % (0-5); GRANULOCYTE % 55.9 % (42.2-75.2); HEMATOCRIT 25.5 % (42-52); MEAN CORPUSCULAR HGB CONC 30.3 G/DL (33.0-37.0); MEAN CORPUSCULAR VOLUME 78.9 FL (80.0-94.0); RBC DISTRIBUTION WIDTH 22.7 % (11.5-14.5); RED BLOOD CELL CT 3.23 /CUMM (4.70-6.10)
[2017-04-27 05:16] LABS: PT 16.7 SEC (9.4-12.5)
[2017-04-27 05:22] LABS: WHITE BLOOD CELL COUNT 3.4 /CUMM (4.8-10.8)
[2017-04-27 05:47] LABS: PLATELET COUNT 35 /CUMM (130-400)
[2017-04-27 05:48] LABS: MEAN CORPUSCULAR HGB 23.9 PG (27.0-31.0)
--- NOTE | 2017-04-27 07:33 | PN- Resident CRCU ---
Subjective HPI/CRCU Issues: 1. Hypotension 2. Ascites likely secondary to Portal Hypertension 3. Thrombocytopenia/low fibrinogen 4. Elevated INR 5. ESRD 6. Depression 7. Catheter-associated Peritonitis - resolved 8. Nonsustained SVT - currently resolved 9. Acute Hypoxic Respiratory Failure - resolved 10. SHELBY on CKD - resolved 11. History of Polycystic Kidney and Liver disease 24 Hour Events: Patient was hypotensive yesterday and was given 500 ML bolus maintain blood pressure in 100/60. He became hypotensive 77/58 early in the morning as well and was started back on levophid. His condition continues to be progressively worse. He underwent paracentesis yesterday with removal of 500mL. His J-tube site continues to drain serosaguinous ascites. Patient is scheduled for hemodialysis today. He remains intubated Tmax 98.7 Heart rate ranging 90s to 70s Normal sinus rhythm Respiratory rate ranging from 14-18 Blood pressure 100's/60's with episodes of transient hypotension. AC mode RR 18, FiO2 30%, Vt 500, PEEP 5 Input 91391 output 5025 WBC count 3.4, platelet count 35 concerning, H/H7.7/25.5 stable from yesterday Sodium 145, potassium 4.5, chloride 109, bicarbonate 19, anion gap 17, creatinine 2.4, alkaline phosphatase 204, INR 1.65 which is 146 Chest x-ray 1. Endotracheal tube tip 5.5 cm above the holley. 2. Enteric tube courses into the abdomen with tip beyond the [id number] of this exam. 3. No change in positioning of bilateral central venous catheters. 4. No significant change in bilateral small pleural effusions and associated bibasilar atelectasis or pneumonia. Paracentesis was performed yesterday 500 mL drained, WBC count 6600 RBC count 00473, culture growing gram-negative rods and will need to broaden the antibiotic coverage We will touch base with ID and have goals of care discussion today. Objective Vital Signs & I&O Last 8 Hrs of Vitals and I&O: Vital Signs Date Time Temp Pulse Resp B/P B/P Pulse O2 O2 Flow FiO2 Mean Ox Delivery Rate 04/27 1207 30 04/27 0845 30 04/27 0800 96 Ventilator 30% 04/27 0800 98.7 98 14 100/60 99 Ventilator 30% 04/27 0617 35 02/14 0447 99.7 90 14 77/58 04/27 0408 35 04/27 0400 96 Ventilator 30% 04/27 0156 35 04/27 0000 97.7 91 16 110/80 100 Ventilator 30% 04/27 0000 100 Ventilator 30% 04/26 2230 30 04/26 2000 98 Ventilator 30% 04/26 1924 30 04/26 1628 35 04/26 1600 98.2 94 18 100/70 97 Ventilator 30% 04/26 1600 96 Ventilator 30% Intake & Output 04/27 1600 04/27 0800 04/27 0000 Intake Total 880 940 Output Total 450 235 Balance 430 705 Intake, IV 699 761 Intake, Tube 90 79 Feeding Intake, Tube 91 100 Irrigant Output, 150 160 Gastric Drainage Output, Other 300 75 Exam General Appearance: intubated Head: atraumatic Respiratory: chest non-tender Gastrointestinal: distention Extremities: no edema Current Medications: Current Medications Sig/Lola Start time Last Medication Dose Route Stop Time Status Admin Acetaminophen 650 MG Q4P PRN 04/17 1645 AC 04/24 PO 1452 Albumin Human 25 GM ONCE ONE 04/26 1445 DC 04/26 IV 04/26 1446 1458 Albumin Human 50 GM ONCE ONE 04/26 1445 DC 04/26 IV 04/26 1446 1500 Ampicillin Sodium/ 3,000 MG Q24H 04/25 1300 DC 04/26 Sulbactam Sodium IV 1400 Sodium Chloride 100 ML Benzocaine/Menthol 1 MYLES Q2P PRN 04/03 1100 AC PO Bisacodyl 10 MG ONCE PRN 04/09 1330 AC ID Collagenase 1 BENEDICTO BID 04/02 1100 AC 04/26 TOP 2032 Desvenlafaxine 50 MG MoWeFr@1300 04/20 1300 AC 04/25 Succinate PO 1422 Dextrose/Sodium 1,000 ML Q16H 04/24 1745 AC 04/26 Chloride IV 2019 Epoetin Bryan 3,000 UNIT 03/30 1000 AC 04/25 IV 1130 Glycerin 2 SPRAY Q2P PRN 04/01 2045 AC PO Meropenem 1 GM Q24 04/27 1059 AC IV Morphine Sulfate 2 MG ONCE ONE 04/27 1330 DC 04/27 IV 04/27 1331 1324 Morphine Sulfate 2 MG Q4P PRN 04/26 2145 AC 04/27 IV 1310 Multivitamins 1 TAB 1700 03/25 1700 DC 04/26 PO 1800 Norepinephrine 4 MG Q13H 04/27 0830 AC Dextrose/Water 250 ML IV Norepinephrine 4 MG Q24H 04/27 0800 DC Dextrose/Water 250 ML IV Norepinephrine 4 MG ONCE ONE 04/27 0445 DC 04/27 Sodium Chloride 250 ML IV 04/27 0446 0447 Ondansetron HCl 4 MG Q6P PRN 04/12 0845 AC 04/22 IV 0130 Pantoprazole Sodium 40 MG DAILY 04/21 2230 AC 04/26 IV 1059 Phosphate 250 MG PC AND AT BEDTIME 04/26 0900 AC 04/26 PO 2105 Polyethylene Glycol 17 GM DAILY PRN 04/03 1100 AC 04/06 PO 1850 Potassium Chloride 40 MEQ BID 04/26 1000 DC 04/26 PO 04/27 1001 2103 Scopolamine HBr 1 PAT Q72H 04/27 1415 AC TOP Senna/Docusate Sodium 1 TAB BID PRN 04/06 1500 AC 04/13 PO 1308 Verapamil HCl 180 MG DAILY 03/25 0745 DC 04/19 PO 0836 Impression/Plan Impression/Problem List Impression: Mr. Tijerina is a 66 yo m with a PMH of PKD, Polycystic liver disease, portal HTN , HTN, HLD, umbilical hernia repair, colon ademona, GERD who presented to the ED with NVD with progressively worsened abdominal distention from ascitic fluid. Assessment and Plan: 1. Hypotension 2. Ascites likely secondary to Portal Hypertension 3. Thrombocytopenia/low fibrinogen 4. Elevated INR 5. ESRD 6. Depression 7. Catheter-associated Peritonitis - resolved 8. Nonsustained SVT - currently resolved 9. Acute Hypoxic Respiratory Failure - resolved 10. SHELBY on CKD - resolved 11. History of Polycystic Kidney and Liver disease Plan: code status has been converted to comfort care after family meeting. 1. Respiratory: Extubated 2. Infectious: Has been afebrile in the past 24 hours.OR cultures show growth of anerobic gram negative rods, which is most likely Bacteroides. Paracentesis was performed yesterday 500 mL drained, WBC count 6600 RBC count 33811, culture growing gram-negative rods concerning for recurrent peritonitis -Unasyn discontinued and patient is currently on meropenem and pancultured -Worsening WBC count and platelet concerning for sepsis 3. Metabolic- Underwent dialysis yesterday and was hypotensive. He was started on norepinephrine and weaned off levo . He also received fluids and albumin prior dialysis to maintain his blood pressure. If needed, he can be started 5% albumin to increase the amount of fluids. -Discontinue IV Albumin 25mg q8 with serum Alb > 3 -HD ongoing -Monitor BEP and replete electrolytes accordingly 4. Hematology- There has been an acute drop in platelets, likely due to sepsis. SC heparin has been dc'd. Fibrinogen has been low. This could represent DIC. Will continue to follow DIC panel (INR, fibrinogen levels). If level <100, can give cryoprecipitate. -H/H7.7/25, WBC 3.4, platelets 35 5. Alimentary- Had a new Jej tube placed last week. There is drainage from the J tube due to reaccumulating ascitic fluid. Tube feedings were started today via OG tube with Vital AF with a goal rate of 20cc/hr. -Ascites likely secondary to Portal Hypertension, therapeutic paracentesis. 6. Cardiovascular - He previously has had runs of NSVT. He will need to be restarted on his Metoprolol once his blood pressure becomes more stable. Tube feedings with Vital AF/DVT Prophylaxis with ALPS/ Problem List: 1. Hyponatremia 2. Renal insufficiency Pain Ratin Tomorrow's Labs & Rationales: none Plan DVT/Prophylaxis: mechanical
[2017-04-27 08:00] VITALS: BP 100/60
--- NOTE | 2017-04-27 08:33 | ULTRASOUND REPORT ---
CLINICAL HISTORY: This patient is a 67 years old Male with ascites found on physical exam, who is referred to Interventional Radiology for ultrasound-guided paracentesis. PROCEDURE: Ultrasound-guided paracentesis. PHYSICIANS: Dr. Jmai Parker (attending). MEDICATIONS: 10 mL of 1% lidocaine SQ. COMPLICATIONS: None ESTIMATED BLOOD LOSS: <5 mL SPECIMENS: Abdominal ascites IMPLANT: None. SITE MARKING: As part of the preprocedure verification policy, a site marking procedure was initiated. Due to the nature the procedure, the insertion site could not be predetermined thus invoking the policy of exemption to site laterality and marking. Insertion site marking was performed in the procedure room in conjunction with imaging confirmation. PROCEDURE NOTE: Informed consent was obtained from the patient prior to the procedure. During this process, the procedure and potential alternatives were explained along with the intended outcome and benefits. The risks of the procedure, including the possibility of an unsuccessful procedure, as well as the risk of not doing the procedure, were discussed. The patient was given the opportunity to ask questions regarding the procedure and appeared competent to make decisions. A signed consent form documenting this discussion was placed in the medical record. A time-out procedure was performed. Appropriate preprocedure medical history and imaging studies were reviewed. The patient was brought to the ultrasound room and placed in the supine position. A time-out procedure was performed. Ultrasound images of the abdomen were obtained to localize a moderate collection of ascites. Note was also made of multiple tense intra-abdominal cysts that do not communicate with the ascites. Images were permanently saved to the record. An area of the right lower quadrant was prepped and draped in the standard sterile fashion. All elements of maximal sterile barrier technique followed including use of cap, mask, sterile gown, sterile gloves, a sterile full body drape and hand hygiene. Also followed skin preparation with 2% chlorhexidine for cutaneous antisepsis, and sterile ultrasound preparation with sterile gel and probe cover when applicable. 10 mL of 1% lidocaine was used to obtain local anesthesia of the skin and deeper tissues. A standard small-bore needle was introduced to sample fluid and demonstrated a safe access route. There was no evidence of traversing adjacent organs or vascular structures. A 6-Fr [id number]-Ybtuzqem closed needle/catheter system was utilized for access. 466 0 mL of bright yellow fluid was aspirated before drainage ceased. The catheter was removed and sterile dressing applied. The patient tolerated the procedure well without evidence of complications. FINDINGS: Moderate simple abdominal ascites as detailed above. After the paracentesis was completed, the patient's abdomen remained tense and distended due to multiple intra-abdominal cysts that do not communicate with the ascites. IMPRESSION: Successful ultrasound-guided therapeutic and diagnostic paracentesis. After the paracentesis was completed, the patient's abdomen remained tense and distended due to multiple intra-abdominal cysts that do not communicate with the ascites. PLAN: The patient was stable after the procedure.
--- NOTE | 2017-04-27 09:13 | PN- Nephrology ---
Assessment/Plan Assessment: 1. 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 Hypotension: back on pressors Prognosis poor Suggestion: Limits of care need to be addressed Subjective Subjective: Lethargic on Vent Hypotensive w HD --> NE restarted Objective Vital Signs and I&Os Vital Signs Date Time Temp Pulse Resp B/P B/P Pulse O2 O2 Flow FiO2 Mean Ox Delivery Rate 04/27 0845 30 04/27 0800 98.7 98 14 100/60 99 Ventilator 30% 04/27 0617 35 04/27 0447 99.7 90 14 77/58 04/27 0408 35 04/27 0400 96 Ventilator 30% 04/27 0156 35 04/27 0000 97.7 91 16 110/80 100 Ventilator 30% 04/27 0000 100 Ventilator 30% 04/26 2230 30 04/26 2000 98 Ventilator 30% 04/26 1924 30 04/26 1628 35 04/26 1600 98.2 94 18 100/70 97 Ventilator 30% 04/26 1600 96 Ventilator 30% 04/26 1401 30 04/26 1200 97 Ventilator 30% 04/26 1145 30 04/26 1100 86 92/70 Intake & Output 04/27 1600 04/27 0400 04/26 1600 04/26 0400 04/25 1600 04/25 0400 Intake Total 914 250 0712 985 1431 661 Output Total 780 726 5349 338 900 2073 Balance 863 340 6341 490 851 -859 Intake, Blood 598 Product Intake, IV 946 091 8593 907 1391 571 Intake, Oral 0 0 0 0 Intake, Other 40 Intake, Tube 90 79 170 48 Feeding Intake, Tube 91 100 210 30 90 Irrigant Number 0 Bowel Movements Output, 150 160 340 150 250 170 Gastric Drainage Output, Other 300 75 880 068 639 2199 Output, Urine 0 0 Physical Exam General Appearance: cachetic, intubated Neck: R IJ cath Respiratory: rhonchi Cardiovascular: regular rate/rhythm Abdomen: distention Extremities: no edema Neurologic/Psychiatric: lethargic Current Medications: Current Medications Sig/Lola Start time Last Medication Dose Route Stop Time Status Admin Acetaminophen 650 MG Q4P PRN 04/17 1645 AC 04/24 PO 1452 Albumin Human 25 GM ONCE ONE 04/26 1445 DC 04/26 IV 04/26 1446 1458 Albumin Human 50 GM ONCE ONE 04/26 1445 DC 04/26 IV 04/26 1446 1500 Albumin Human 25 GM Q8 04/22 1400 DC 04/26 IV 0601 Ampicillin Sodium/ 3,000 MG Q24H 04/25 1300 AC 04/26 Sulbactam Sodium IV 1400 Sodium Chloride 100 ML Benzocaine/Menthol 1 MYLES Q2P PRN 04/03 1100 AC PO Bisacodyl 10 MG ONCE PRN 04/09 1330 AC SD Collagenase 1 BENEDICTO BID 04/02 1100 AC 04/26 TOP 2032 Desvenlafaxine 50 MG MoWeFr@1300 04/20 1300 AC 04/25 Succinate PO 1422 Dextrose/Sodium 1,000 ML Q16H 04/24 1745 AC 04/26 Chloride IV 2019 Epoetin Bryan 3,000 UNIT 03/30 1000 AC 04/25 IV 1130 Glycerin 2 SPRAY Q2P PRN 04/01 2045 AC PO Magnesium Sulfate 1 GM ONCE ONE 04/26 0845 DC 04/26 Dextrose/Water 100 ML IV 04/26 1244 1100 Morphine Sulfate 2 MG Q4P PRN 04/26 2145 AC 04/27 IV 0752 Morphine Sulfate 2 MG Q4P PRN 04/19 1145 DC 04/25 IV 2008 Multivitamins 1 TAB 1700 03/25 1700 AC 04/26 PO 1800 Norepinephrine 4 MG Q13H 04/27 0830 AC Dextrose/Water 250 ML IV Norepinephrine 4 MG Q24H 04/27 0800 DC Dextrose/Water 250 ML IV Norepinephrine 4 MG ONCE ONE 04/27 0445 DC 04/27 Sodium Chloride 250 ML IV 04/27 0446 0447 Norepinephrine 4 MG Q24H 04/25 2130 DC 04/25 Sodium Chloride 250 ML IV 2015 Ondansetron HCl 4 MG Q6P PRN 04/12 0845 AC 04/22 IV 0130 Pantoprazole Sodium 40 MG DAILY 04/21 2230 AC 04/26 IV 1059 Phosphate 250 MG PC AND AT BEDTIME 04/26 0900 AC 04/26 PO 2105 Polyethylene Glycol 17 GM DAILY PRN 04/03 1100 AC 04/06 PO 1850 Potassium Chloride 40 MEQ BID 04/26 1000 AC 04/26 PO 04/27 1001 2103 Senna/Docusate Sodium 1 TAB BID PRN 04/06 1500 AC 04/13 PO 1308 Sodium Chloride 500 ML BOLUS ONE 04/26 1145 DC 04/26 IV 04/26 1244 1154 Verapamil HCl 180 MG DAILY 03/25 0745 AC 04/19 PO 0836 Results Pertinent Lab Results: Laboratory Tests 04/27 04/26 04/26 0400 1510 1510 Chemistry Sodium (137 - 145 mmol/L) 145 Potassium (3.5 - 5.1 mmol/L) 4.5 Chloride (98 - 107 mmol/L) 109 H Carbon Dioxide (22 - 30 mmol/L) 19 L Anion Gap (5 - 16) 17 H BUN (9 - 20 mg/dL) 38 H Creatinine (0.7 - 1.2 mg/dL) 2.4 H Estimated GFR (>60 ml/min) 27 L Glucose (65 - 99 mg/dL) 88 Calcium (8.4 - 10.2 mg/dL) 9.0 Phosphorus (2.5 - 4.5 mg/dL) 2.9 Magnesium (1.6 - 2.3 mg/dL) 1.9 Total Bilirubin (0.2 - 1.3 mg/dL) 7.5 H Direct Bilirubin (< 0.4 mg/dL) 5.8 H AST (17 - 59 U/L) 21 ALT (21 - 72 U/L) 23 Alkaline Phosphatase (< 127 U/L) 204 H Total Protein (6.3 - 8.2 g/dL) 4.9 L Albumin (3.5 - 5.0 g/dL) 2.8 L Coagulation PT (9.4 - 12.5 SEC) 16.7 H INR (0.90 - 1.17) 1.60 H Fibrinogen Activity (200 - 393 MG/DL) 146 L Hematology CBC w Diff NO MAN DIFF REQ WBC (4.8 - 10.8 /CUMM) 3.4 L RBC (4.70 - 6.10 /CUMM) 3.23 L Hgb (14.0 - 18.0 G/DL) 7.7 L Hct (42 - 52 %) 25.5 L MCV (80.0 - 94.0 FL) 78.9 L MCH (27.0 - 31.0 PG) 23.9 L MCHC (33.0 - 37.0 G/DL) 30.3 L RDW (11.5 - 14.5 %) 22.7 H Plt Count (130 - 400 /CUMM) 35 L MPV (7.4 - 10.4 FL) 10.0 Gran % (42.2 - 75.2 %) 55.9 Lymphocytes % (20.5 - 51.1 %) 29.3 Monocytes % (1.7 - 9.3 %) 13.7 H Eosinophils % (0 - 5 %) 0.6 Basophils % (0.0 - 2.0 %) 0.5 Absolute Granulocytes (1.4 - 6.5 /CUMM) 1.9 Absolute Lymphocytes (1.2 - 3.4 /CUMM) 1.0 L Lymphocytes (%) 3 Absolute Monocytes (0.10 - 0.60 /CUMM) 0.5 Absolute Eosinophils (0.0 - 0.7 /CUMM) 0 Absolute Basophils (0.0 - 0.2 /CUMM) 0 % Normal PMNs (%) 88 Misc Hematology Test (%) Other Body Source Fluid WBC (0 - 5 /CUMM) 6600 H Fld Total RBCs Counted (0 /CUMM) 18240 H Fluid Glucose (mg/dL) 20 Fluid Total Protein (g/dL) 3.4 Fluid Albumin (g/dL) 1.8 Fluid LDH (U/L) 945 Fluid Amylase (U/L) < 30 04/26 04/26 1240 0820 Blood Gas pH (7.35 - 7.45 PH) 7.53 H pCO2 (35 - 45 TORR) 23 L pO2 (80 - 100 TORR) 91 HCO3 (21 - 28 MEQ/L) 19 L ABG O2 Sat (Measured) (>96.0 %) 96.0 P-50 (Temp Corrected) N Carboxyhemoglobin (1.5 - 5.0 %) 1.1 L O2 Concentration % 30% Temperature (97.0 - 100.0 FARH) 99.9 Respiration Rate (BPM) 18 O2 Delivery Method VENT Vent Mode VC-AC Expiratory Pressure (CMH2O/P) 5 Tidal Volume (CC) 500 Hematology CBC w Diff NO MAN DIFF REQ WBC (4.8 - 10.8 /CUMM) 8.5 RBC (4.70 - 6.10 /CUMM) 2.92 L Hgb (14.0 - 18.0 G/DL) 7.5 L Hct (42 - 52 %) 23.0 L MCV (80.0 - 94.0 FL) 78.6 L MCH (27.0 - 31.0 PG) 25.5 L MCHC (33.0 - 37.0 G/DL) 32.5 L RDW (11.5 - 14.5 %) 22.2 H Plt Count (130 - 400 /CUMM) 38 L MPV (7.4 - 10.4 FL) 9.8 Gran % (42.2 - 75.2 %) 78.5 H Lymphocytes % (20.5 - 51.1 %) 12.7 L Monocytes % (1.7 - 9.3 %) 8.4 Eosinophils % (0 - 5 %) 0.3 Basophils % (0.0 - 2.0 %) 0.1 Absolute Granulocytes (1.4 - 6.5 /CUMM) 6.7 H Absolute Lymphocytes (1.2 - 3.4 /CUMM) 1.1 L Absolute Monocytes (0.10 - 0.60 /CUMM) 0.7 H Absolute Eosinophils (0.0 - 0.7 /CUMM) 0 Absolute Basophils (0.0 - 0.2 /CUMM) 0 Miscellaneous Phlebotomy Draw Site RIGHT RADIAL 04/26 04/26 04/25 0705 0700 2200 Chemistry Sodium (137 - 145 mmol/L) 144 Potassium (3.5 - 5.1 mmol/L) 3.4 L Chloride (98 - 107 mmol/L) 105 Carbon Dioxide (22 - 30 mmol/L) 21 L Anion Gap (5 - 16) 18 H BUN (9 - 20 mg/dL) 28 H Creatinine (0.7 - 1.2 mg/dL) 2.0 H Estimated GFR (>60 ml/min) 33 L Glucose (65 - 99 mg/dL) 85 Calcium (8.4 - 10.2 mg/dL) 9.2 Phosphorus (2.5 - 4.5 mg/dL) 2.3 L Magnesium (1.6 - 2.3 mg/dL) 1.7 Total Bilirubin (0.2 - 1.3 mg/dL) 7.7 H Direct Bilirubin (< 0.4 mg/dL) 5.4 H AST (17 - 59 U/L) 31 ALT (21 - 72 U/L) 23 Alkaline Phosphatase (< 127 U/L) 174 H Total Protein (6.3 - 8.2 g/dL) 5.4 L Albumin (3.5 - 5.0 g/dL) 3.1 L Coagulation PT (9.4 - 12.5 SEC) 16.9 H Cancelled 23.9 H INR (0.90 - 1.17) 1.62 H Cancelled 2.29 H APTT (25 - 37 SEC) 52 H Fibrinogen Activity (200 - 393 MG/DL) 164 L Hematology CBC w Diff NO MAN DIFF REQ WBC (4.8 - 10.8 /CUMM) 8.4 RBC (4.70 - 6.10 /CUMM) 2.80 L Hgb (14.0 - 18.0 G/DL) 7.1 *L Hct (42 - 52 %) 21.9 L MCV (80.0 - 94.0 FL) 78.2 L MCH (27.0 - 31.0 PG) 25.5 L MCHC (33.0 - 37.0 G/DL) 32.6 L RDW (11.5 - 14.5 %) 22.6 H Plt Count (130 - 400 /CUMM) 37 L MPV (7.4 - 10.4 FL) 10.0 Gran % (42.2 - 75.2 %) 76.8 H Lymphocytes % (20.5 - 51.1 %) 15.6 L Monocytes % (1.7 - 9.3 %) 7.2 Eosinophils % (0 - 5 %) 0.3 Basophils % (0.0 - 2.0 %) 0.1 Absolute Granulocytes (1.4 - 6.5 /CUMM) 6.4 Absolute Lymphocytes (1.2 - 3.4 /CUMM) 1.3 Absolute Monocytes (0.10 - 0.60 /CUMM) 0.6 Absolute Eosinophils (0.0 - 0.7 /CUMM) 0 Absolute Basophils (0.0 - 0.2 /CUMM) 0 04/25 04/25 04/25 04/25 1448 1448 1335 1219 Chemistry Ammonia (9 - 30 umol/L) 9 Coagulation PT (9.4 - 12.5 SEC) 23.9 H INR (0.90 - 1.17) 2.29 H Fibrinogen Activity (200 - 393 MG/DL) 128 L Other Body Source Fluid WBC Cancelled Cancelled Fld Total RBCs Counted Cancelled Cancelled Fluid Albumin Cancelled 04/25 04/25 1219 0425 Chemistry Sodium (137 - 145 mmol/L) 144 Potassium (3.5 - 5.1 mmol/L) 3.6 Chloride (98 - 107 mmol/L) 108 H Carbon Dioxide (22 - 30 mmol/L) 17 L Anion Gap (5 - 16) 18 H BUN (9 - 20 mg/dL) 44 H Creatinine (0.7 - 1.2 mg/dL) 2.8 H Estimated GFR (>60 ml/min) 23 L Glucose (65 - 99 mg/dL) 61 L Calcium (8.4 - 10.2 mg/dL) 8.9 Phosphorus (2.5 - 4.5 mg/dL) 2.2 L Magnesium (1.6 - 2.3 mg/dL) 1.8 Total Bilirubin (0.2 - 1.3 mg/dL) 7.8 H AST (17 - 59 U/L) 96 H ALT (21 - 72 U/L) 42 Albumin (3.5 - 5.0 g/dL) 2.9 L Hematology CBC w Diff NO MAN DIFF REQ WBC (4.8 - 10.8 /CUMM) 14.9 H RBC (4.70 - 6.10 /CUMM) 3.42 L Hgb (14.0 - 18.0 G/DL) 8.8 L Hct (42 - 52 %) 27.0 L MCV (80.0 - 94.0 FL) 79.1 L MCH (27.0 - 31.0 PG) 25.6 L MCHC (33.0 - 37.0 G/DL) 32.4 L RDW (11.5 - 14.5 %) 22.4 H Plt Count (130 - 400 /CUMM) 63 L MPV (7.4 - 10.4 FL) 10.1 Gran % (42.2 - 75.2 %) 89.5 H Lymphocytes % (20.5 - 51.1 %) 6.2 L Monocytes % (1.7 - 9.3 %) 3.8 Eosinophils % (0 - 5 %) 0.4 Basophils % (0.0 - 2.0 %) 0.1 Absolute Granulocytes (1.4 - 6.5 /CUMM) 13.4 H Absolute Lymphocytes (1.2 - 3.4 /CUMM) 0.9 L Absolute Monocytes (0.10 - 0.60 /CUMM) 0.6 Absolute Eosinophils (0.0 - 0.7 /CUMM) 0.1 Absolute Basophils (0.0 - 0.2 /CUMM) 0 Other Body Source Fluid Albumin Cancelled Imaging/Other Studies: CXR: 1. Endotracheal tube tip 5 cm above the holley. 2. Enteric tube courses into the abdomen with tip not seen. 3. Large bore right jugular central venous line at the cavoatrial junction. 4. No significant change in bilateral pleural effusions and associated mid and lower lung parenchymal opacities, likely related to atelectasis or pneumonia. 5. Central vascular congestion persists unchanged.
--- NOTE | 2017-04-27 09:34 | PN- Infect Dx ---
Subjective Subjective: Afebrile. His blood pressure again dropped this morning to 77/58, and he is back on pressors. He was apparently suctioned for thick mariee secretions last evening. He is quite lethargic and unable to provide any history at this time. Objective Last 24 Hrs of Vital Signs/I&O Vital Signs Date Time Temp Pulse Resp B/P B/P Pulse O2 O2 Flow FiO2 Mean Ox Delivery Rate 04/27 0845 30 04/27 0800 96 Ventilator 30% 04/27 0800 98.7 98 14 100/60 99 Ventilator 30% 04/27 0617 35 04/27 0447 99.7 90 14 77/58 04/27 0408 35 04/27 0400 96 Ventilator 30% 04/27 0156 35 04/27 0000 97.7 91 16 110/80 100 Ventilator 30% 04/27 0000 100 Ventilator 30% 04/26 2230 30 04/26 2000 98 Ventilator 30% 04/26 1924 30 04/26 1628 35 04/26 1600 98.2 94 18 100/70 97 Ventilator 30% 04/26 1600 96 Ventilator 30% 04/26 1401 30 04/26 1200 97 Ventilator 30% 04/26 1145 30 04/26 1100 86 92/70 Intake & Output 04/27 1600 04/27 0800 04/27 0000 Intake Total 880 940 Output Total 450 235 Balance 430 705 Intake, IV 699 761 Intake, Tube 90 79 Feeding Intake, Tube 91 100 Irrigant Output, 150 160 Gastric Drainage Output, Other 300 75 Physical Exam Other Physical Findings: He is lethargic and minimally responsive, currently on dialysis Neck dialysis catheter in the right IJ and triple-lumen catheter in the left subclavian with no inflammation at the sites Lungs bilateral rhonchi Heart regular rhythm with no murmur Abdomen is distended, tender to palpation, with decreased bowel sounds Extremities no cyanosis, clubbing or edema Results Last 24 Hours of Lab Results: Laboratory Tests 04/27 04/26 04/26 0400 1510 1510 Chemistry Sodium (137 - 145 mmol/L) 145 Potassium (3.5 - 5.1 mmol/L) 4.5 Chloride (98 - 107 mmol/L) 109 H Carbon Dioxide (22 - 30 mmol/L) 19 L Anion Gap (5 - 16) 17 H BUN (9 - 20 mg/dL) 38 H Creatinine (0.7 - 1.2 mg/dL) 2.4 H Estimated GFR (>60 ml/min) 27 L Glucose (65 - 99 mg/dL) 88 Calcium (8.4 - 10.2 mg/dL) 9.0 Phosphorus (2.5 - 4.5 mg/dL) 2.9 Magnesium (1.6 - 2.3 mg/dL) 1.9 Total Bilirubin (0.2 - 1.3 mg/dL) 7.5 H Direct Bilirubin (< 0.4 mg/dL) 5.8 H AST (17 - 59 U/L) 21 ALT (21 - 72 U/L) 23 Alkaline Phosphatase (< 127 U/L) 204 H Total Protein (6.3 - 8.2 g/dL) 4.9 L Albumin (3.5 - 5.0 g/dL) 2.8 L Coagulation PT (9.4 - 12.5 SEC) 16.7 H INR (0.90 - 1.17) 1.60 H Fibrinogen Activity (200 - 393 MG/DL) 146 L Hematology CBC w Diff NO MAN DIFF REQ WBC (4.8 - 10.8 /CUMM) 3.4 L RBC (4.70 - 6.10 /CUMM) 3.23 L Hgb (14.0 - 18.0 G/DL) 7.7 L Hct (42 - 52 %) 25.5 L MCV (80.0 - 94.0 FL) 78.9 L MCH (27.0 - 31.0 PG) 23.9 L MCHC (33.0 - 37.0 G/DL) 30.3 L RDW (11.5 - 14.5 %) 22.7 H Plt Count (130 - 400 /CUMM) 35 L MPV (7.4 - 10.4 FL) 10.0 Gran % (42.2 - 75.2 %) 55.9 Lymphocytes % (20.5 - 51.1 %) 29.3 Monocytes % (1.7 - 9.3 %) 13.7 H Eosinophils % (0 - 5 %) 0.6 Basophils % (0.0 - 2.0 %) 0.5 Absolute Granulocytes (1.4 - 6.5 /CUMM) 1.9 Absolute Lymphocytes (1.2 - 3.4 /CUMM) 1.0 L Lymphocytes (%) 3 Absolute Monocytes (0.10 - 0.60 /CUMM) 0.5 Absolute Eosinophils (0.0 - 0.7 /CUMM) 0 Absolute Basophils (0.0 - 0.2 /CUMM) 0 % Normal PMNs (%) 88 Misc Hematology Test (%) Other Body Source Fluid WBC (0 - 5 /CUMM) 6600 H Fld Total RBCs Counted (0 /CUMM) 56983 H Fluid Glucose (mg/dL) 20 Fluid Total Protein (g/dL) 3.4 Fluid Albumin (g/dL) 1.8 Fluid LDH (U/L) 945 Fluid Amylase (U/L) < 30 04/26 1240 Hematology CBC w Diff NO MAN DIFF REQ WBC (4.8 - 10.8 /CUMM) 8.5 RBC (4.70 - 6.10 /CUMM) 2.92 L Hgb (14.0 - 18.0 G/DL) 7.5 L Hct (42 - 52 %) 23.0 L MCV (80.0 - 94.0 FL) 78.6 L MCH (27.0 - 31.0 PG) 25.5 L MCHC (33.0 - 37.0 G/DL) 32.5 L RDW (11.5 - 14.5 %) 22.2 H Plt Count (130 - 400 /CUMM) 38 L MPV (7.4 - 10.4 FL) 9.8 Gran % (42.2 - 75.2 %) 78.5 H Lymphocytes % (20.5 - 51.1 %) 12.7 L Monocytes % (1.7 - 9.3 %) 8.4 Eosinophils % (0 - 5 %) 0.3 Basophils % (0.0 - 2.0 %) 0.1 Absolute Granulocytes (1.4 - 6.5 /CUMM) 6.7 H Absolute Lymphocytes (1.2 - 3.4 /CUMM) 1.1 L Absolute Monocytes (0.10 - 0.60 /CUMM) 0.7 H Absolute Eosinophils (0.0 - 0.7 /CUMM) 0 Absolute Basophils (0.0 - 0.2 /CUMM) 0 Last 24 Hours of Clarke Results: Peritoneal fluid culture April 26 positive for gram-negative rods Recent Imaging Studies: Chest x-ray April 27 reveals bilateral haziness Assessment/Plan Impression: Condition has further deteriorated, with hypotension, requiring resumption of pressors, and with evidence of recurrent peritonitis, possibly related to his recent J-tube placement, though he was noted to have small interloop intra- abdominal abscesses intraoperatively at the time of the J-tube placement 6 days ago, or related to his initial episode of peritonitis secondary to the migrated Pleurx catheter. His J-tube site continues to drain ascitic fluid and have discussed this with Surgery. He remains afebrile and his white blood cell count is normal, but it is continuing to decrease, along with his platelet count, worrisome for ongoing sepsis. He is now on Unasyn Day 6 of treatment for peritonitis/small interloop intra-abdominal abscesses, with B. fragilis isolated from the OR culture, but, with his positive ascitic fluid, feel that his antibiotics should again be broadened pending final cultures. His transaminases have normalized, though his bilirubin remains elevated, likely secondary to sepsis. His overall prognosis remains poor and reevaluation of his overall level of care is apparently planned. Suggestion: 1. Further management of his J-tube leakage per Surgery 2. Repeat sputum and blood cultures 2 3. Follow-up peritoneal fluid culture 4. Await decision regarding overall level of care 5. Discontinue Unasyn 6. Restart Meropenem 1 g IV every 24 hours pending above
--- NOTE | 2017-04-27 09:36 | PN- General Surgery ---
Surgical Brief Attending Note Brief Attending Note: Back on pressors which began prior to dialysis. Paracentesis performed yesterday, only 500ml removed. He continues to leak ascites around the feeding tube which is controlled with urostomy bag. Recommend advancing feeds. It will have no impact on ascites leak. He is severely malnourished. In regards to GNR in paracentesis fluid yesterday, I feel that it represents an ongoing infection related to drainage of abscesses during feeding tube surgery. It will take longer to clear in setting of uncontrolled ascites. I do not feel that there is a bowel leak related to feeding tube placement. If that were the case, he would be leaking enteric contents, not serosaguinous ascites.
--- NOTE | 2017-04-27 10:25 | RADIOLOGY REPORT ---
EXAMINATION: CR PORTABLE CHEST CLINICAL INFORMATION: Intubated patient. Confirmation of lines and tubes. COMPARISON: Several prior chest x-rays, most recent of which is dated 04/26/2017. TECHNIQUE: Portable semiupright view of the chest was obtained. FINDINGS: Endotracheal tube is approximately 5.5 cm above the holley. Enteric tube courses into the abdomen with the tip beyond the [id number] of this exam. Right jugular large bore catheter is in place with tip at the cavoatrial junction, unchanged. Left subclavian central venous line tip is in the distal SVC/cavoatrial junction. The cardiomediastinal silhouette is within normal limits in size. There are bilateral small pleural effusions and associated opacities, similar to the previous exam, most likely representing atelectasis or other airspace disease. Upper lungs are relatively clear. No pneumothorax is seen. Bony structures are unremarkable. IMPRESSION: 1. Endotracheal tube tip 5.5 cm above the holley. 2. Enteric tube courses into the abdomen with tip beyond the [id number] of this exam. 3. No change in positioning of bilateral central venous catheters. 4. No significant change in bilateral small pleural effusions and associated bibasilar atelectasis or pneumonia.
--- NOTE | 2017-04-27 10:46 | PN- CRCU ---
Subjective HPI/Critical Care Issues: Doing poorly Afebrile. His blood pressure again dropped this morning to 77/58, and he is back on pressors. He was apparently suctioned for thick mariee secretions last evening. He is quite lethargic and unable to provide any history at this time. Objective Current Medications: Current Medications Sig/Lola Start time Last Medication Dose Route Stop Time Status Admin Acetaminophen 650 MG Q4P PRN 04/17 1645 AC 04/24 PO 1452 Albumin Human 25 GM ONCE ONE 04/26 1445 DC 04/26 IV 04/26 1446 1458 Albumin Human 50 GM ONCE ONE 04/26 1445 DC 04/26 IV 04/26 1446 1500 Ampicillin Sodium/ 3,000 MG Q24H 04/25 1300 DC 04/26 Sulbactam Sodium IV 1400 Sodium Chloride 100 ML Benzocaine/Menthol 1 MYLES Q2P PRN 04/03 1100 AC PO Bisacodyl 10 MG ONCE PRN 04/09 1330 AC TX Collagenase 1 BENEDICTO BID 04/02 1100 AC 04/26 TOP 2031 Desvenlafaxine 50 MG [id number]@1300 04/20 1300 AC 04/25 Succinate PO 1422 Dextrose/Sodium 1,000 ML Q16H 04/24 1745 AC 04/26 Chloride IV 2019 Epoetin Bryan 3,000 UNIT 03/30 1000 AC 04/25 IV 1130 Glycerin 2 SPRAY Q2P PRN 04/01 2045 AC PO Magnesium Sulfate 1 GM ONCE ONE 04/26 0845 DC 04/26 Dextrose/Water 100 ML IV 04/26 1244 1100 Morphine Sulfate 2 MG Q4P PRN 04/26 2145 AC 04/27 IV 0752 Morphine Sulfate 2 MG Q4P PRN 04/19 1145 DC 04/25 IV 2008 Multivitamins 1 TAB 1700 03/25 1700 AC 04/26 PO 1800 Norepinephrine 4 MG Q13H 04/27 0830 AC Dextrose/Water 250 ML IV Norepinephrine 4 MG Q24H 04/27 0800 DC Dextrose/Water 250 ML IV Norepinephrine 4 MG ONCE ONE 04/27 0445 DC 04/27 Sodium Chloride 250 ML IV 04/27 0446 0447 Ondansetron HCl 4 MG Q6P PRN 04/12 0845 AC 04/22 IV 0130 Pantoprazole Sodium 40 MG DAILY 04/21 2230 AC 04/26 IV 1059 Phosphate 250 MG PC AND AT BEDTIME 04/26 0900 AC 04/26 PO 2105 Polyethylene Glycol 17 GM DAILY PRN 04/03 1100 AC 04/06 PO 1850 Potassium Chloride 40 MEQ BID 04/26 1000 DC 04/26 PO 04/27 1001 2103 Senna/Docusate Sodium 1 TAB BID PRN 04/06 1500 AC 04/13 PO 1308 Sodium Chloride 500 ML BOLUS ONE 04/26 1145 DC 04/26 IV 04/26 1244 1154 Verapamil HCl 180 MG DAILY 03/25 0745 AC 04/19 PO 0836 Vital Signs & I&O Last 24 Hrs of Vitals and I&O: Vital Signs Date Time Temp Pulse Resp B/P B/P Pulse O2 O2 Flow FiO2 Mean Ox Delivery Rate 04/27 0845 30 04/27 0800 96 Ventilator 30% 04/27 0800 98.7 98 14 100/60 99 Ventilator 30% 04/27 0617 35 04/27 0447 99.7 90 14 77/58 04/27 0408 35 04/27 0400 96 Ventilator 30% 04/27 0156 35 04/27 0000 97.7 91 16 110/80 100 Ventilator 30% 04/27 0000 100 Ventilator 30% 04/26 2230 30 04/26 2000 98 Ventilator 30% 04/26 1924 30 04/26 1628 35 04/26 1600 98.2 94 18 100/70 97 Ventilator 30% 04/26 1600 96 Ventilator 30% 04/26 1401 30 04/26 1200 97 Ventilator 30% 04/26 1145 30 04/26 1100 86 92/70 Intake & Output 04/27 1600 04/27 0800 04/27 0000 Intake Total 880 940 Output Total 450 235 Balance 430 705 Intake, IV 699 761 Intake, Tube 90 79 Feeding Intake, Tube 91 100 Irrigant Output, 150 160 Gastric Drainage Output, Other 300 75 Impression/Plan Impression/Plan Impression/Plan: He is awake and alert on the ventilator, lethargic Neck dialysis catheter in the right IJ with no inflammation at the site; triple- lumen catheter in the left subclavian with no inflammation at the site Lungs are clear anteriorly Heart regular rhythm with no murmur Abdomen is distended, tender on palpation diffusely, with positive bowel sounds; J-tube site dressing was saturated with serous drainage Extremities no cyanosis, clubbing or edema IMPRESSION Mr. Tijerina is a 66 yo m with a PMH of PKD, Polycystic liver disease, portal HTN , HTN, HLD, umbilical hernia repair, colon ademona, GERD who presented to the ED with NVD with progressively worsened abdominal distention from ascitic fluid. ISsues Acute respiratory failure with hypoxemia related to ongoing liver failure, sepsis, multiple organ dysfunction Peritonitis with asitics hepatic hydrothorax PCKD with renal and liver dysfunction CKD with acute renal failure s/p tunneled cath and first dialysis yesterday SVT now resolved Electrolyte imbalance Anemia Cachexia Status post J-tube REC Continue mechanical ventilator Continue intravenous fluids Paracentesis today J-tube management per surgery, if tolerated increase it tube feeding to 20 mL Antibiotics to continue per ID Dialysis ongoing REnal to to follow will follow PT is critically ill tts 41 mins Family meeting today will follow discussed with
--- NOTE | 2017-04-27 14:28 | Event Note ---
Event Note Event Note: Patient has been converted to comfort care. Family at bedside. We are going to de-escalate the antibiotics and pressors. Patient has been extubated.
[2017-04-27 16:00] VITALS: BP 60/42
== END 2017-04-27 21:39 | disposition hospice, home (50) | DRG 907 ==
LOC: ERH 14:52 → ERHI 19:14 → 2NB 19:14 → 1NO 19:14 → CRI 19:14 → ENRESERV 20:58 → ENTRNSPT 21:52 → CMPTRNSPT 22:16 → CRI 22:19 → 1NO 04-08 20:09 → ENTRNSPT 04-12 15:10 → EDTRNSPTTYP 04-12 15:15 → EDTRNSPT 04-12 15:15 → CMPTRNSPT 04-12 16:40 → ENTRNSPT 04-13 19:03 → EDTRNSPTSTS 04-13 19:07 → 2NB 04-13 19:22 → CMPTRNSPT 04-13 19:41 → 2NB 04-19 09:56 → ENRESERV 04-21 15:55 → CRI 04-21 16:22
PROVIDERS: Dermatology; Emergency Medicine; Internal Medicine; Internal Medicine Adolescent Medicine; Internal Medicine Endocrinology, Diabetes & Metabolism; Internal Medicine Infectious Disease; Internal Medicine Nephrology; Radiology Vascular & Interventional Radiology; Student in an Organized Health Care Education/Training Program
PROC: 0WPG00Z Removal of Drainage Device from Peritoneal Cavity, Open Approach (ICD-10-PCS; principal; 2017-03-23)
PROC: 0W9930Z Drainage of Right Pleural Cavity with Drainage Device, Percutaneous Approach (ICD-10-PCS; 2017-03-23)
PROC: 0JH60XZ Insertion of Tunneled Vascular Access Device into Chest Subcutaneous Tissue and Fascia, Open Approach (ICD-10-PCS; 2017-03-25)
PROC: B2141ZZ Fluoroscopy of Right Heart using Low Osmolar Contrast (ICD-10-PCS; 2017-03-25)
PROC: 02H633Z Insertion of Infusion Device into Right Atrium, Percutaneous Approach (ICD-10-PCS; 2017-03-25)
PROC: 5A1D70Z Performance of Urinary Filtration, Intermittent, Less than 6 Hours Per Day (ICD-10-PCS; 2017-03-26)
PROC: 30233N1 Transfusion of Nonautologous Red Blood Cells into Peripheral Vein, Percutaneous Approach (ICD-10-PCS; 2017-03-28)
PROC: 0W9G3ZX Drainage of Peritoneal Cavity, Percutaneous Approach, Diagnostic (ICD-10-PCS; 2017-03-31)
PROC: 0W9G3ZX Drainage of Peritoneal Cavity, Percutaneous Approach, Diagnostic (ICD-10-PCS; 2017-04-07)
PROC: 0W9G3ZZ Drainage of Peritoneal Cavity, Percutaneous Approach (ICD-10-PCS; 2017-04-13)
PROC: 0DN80ZZ Release Small Intestine, Open Approach (ICD-10-PCS; 2017-04-21)
PROC: 0DHA0UZ Insertion of Feeding Device into Jejunum, Open Approach (ICD-10-PCS; 2017-04-21)
PROC: 0W9G0ZZ Drainage of Peritoneal Cavity, Open Approach (ICD-10-PCS; 2017-04-21)
PROC: 02HV33Z Insertion of Infusion Device into Superior Vena Cava, Percutaneous Approach (ICD-10-PCS; 2017-04-21)
PROC: 5A1955Z Respiratory Ventilation, Greater than 96 Consecutive Hours (ICD-10-PCS; 2017-04-21)
PROC: 0BH17EZ Insertion of Endotracheal Airway into Trachea, Via Natural or Artificial Opening (ICD-10-PCS; 2017-04-21)
PROC: 3E0H76Z Introduction of Nutritional Substance into Lower GI, Via Natural or Artificial Opening (ICD-10-PCS; 2017-04-21)
PROC: 0W9G3ZZ Drainage of Peritoneal Cavity, Percutaneous Approach (ICD-10-PCS; 2017-04-26)
DX: T85.79XA Infection and inflammatory reaction due to other internal prosthetic devices, implants and grafts, initial encounter (principal); K65.1 Peritoneal abscess; K76.7 Hepatorenal syndrome; J96.01 Acute respiratory failure with hypoxia; N17.0 Acute kidney failure with tubular necrosis; J91.8 Pleural effusion in other conditions classified elsewhere; A41.9 Sepsis, unspecified organism; Z51.5 Encounter for palliative care; D69.6 Thrombocytopenia, unspecified; E83.42 Hypomagnesemia; N18.6 End stage renal disease; I12.0 Hypertensive chronic kidney disease with stage 5 chronic kidney disease or end stage renal disease; E87.1 Hypo-osmolality and hyponatremia; I47.1 Supraventricular tachycardia; Q61.2 Polycystic kidney, adult type; K76.6 Portal hypertension; Q44.6 Cystic disease of liver; E44.0 Moderate protein-calorie malnutrition; J94.8 Other specified pleural conditions; R64 Cachexia; I47.2 Ventricular tachycardia; E87.2 Acidosis; E87.5 Hyperkalemia; I95.9 Hypotension, unspecified; K72.90 Hepatic failure, unspecified without coma; L89.150 Pressure ulcer of sacral region, unstageable; K74.69 Other cirrhosis of liver; B96.20 Unspecified Escherichia coli [E. coli] as the cause of diseases classified elsewhere; Z68.24 Body mass index [BMI] 24.0-24.9, adult; B96.5 Pseudomonas (aeruginosa) (mallei) (pseudomallei) as the cause of diseases classified elsewhere; K66.0 Peritoneal adhesions (postprocedural) (postinfection); D50.9 Iron deficiency anemia, unspecified; Z99.2 Dependence on renal dialysis; E86.0 Dehydration; F32.9 Major depressive disorder, single episode, unspecified; Y83.8 Other surgical procedures as the cause of abnormal reaction of the patient, or of later complication, without mention of misadventure at the time of the procedure; Z86.010 Personal history of colon polyps; K21.9 Gastro-esophageal reflux disease without esophagitis; E78.5 Hyperlipidemia, unspecified
CPT/HCPCS: 04007; 1NP; 2NBP; 74181; 84133; 84300; 87070; 87075; CCU; 36415; 71045; 71046; 74176; 77001; 78226; 81001; 82436; 82570; 86920; 87040; 87045; 87086; 87328; 87329; 87804; 87804-59; 88305; 93005; 93010; 93306; 96374; 96375; 97110-GO; 97161-GP; 97530-GO; 99232; 99291; A9537; C1729; C1751; C1769; J0131; J0153; J0690; J0696; J0713; J0780; J0885; J1644; J2185; J2405; J2550; J2765; J2997; J3250; J3370; J3490; J7040; J7042; J7060; P9016; P9047

== ENCOUNTER 2017-04-27 21:51 | Inpatient (IN) | payer OTHER ==
[~2017-04-27 21:51] MED LIST changes: +RENVELA800 M1 PO
[2017-04-28] VITALS: BP 88/58
--- NOTE | 2017-04-28 14:34 | PN- Hospice ---
Subjective Subjective: Family at bedside. Pt is unresponsive, appears comfortable. No medications since last [place]annah. Mildly labored respirations. Daughter reports noting a couple of minor grimaces within the last hour or so. Review of Systems Constitutional: Reports: see HPI. Objective Last 24 Hrs of Vital Signs/I&O Vital Signs Date Time Temp Pulse Resp B/P B/P Pulse O2 O2 Flow FiO2 Mean Ox Delivery Rate 04/28 1004 Nasal 2.0L Cannula 04/28 0800 Nasal 2.0L Cannula 04/28 0000 Nasal 2.0L Cannula 04/28 0000 97.8 48 20 88/58 88 Nasal 2.0L Cannula Physical Exam General Appearance: no apparent distress, sedated Head: atraumatic Respiratory: Mildly labored, RR 24-26, no congestion noted Cardiovascular: regular rate/rhythm Abdomen: distention Extremities: no edema, no mottling Current Medications: Current Medications Sig/Lola Start time Last Medication Dose Route Stop Time Status Admin Acetaminophen 650 MG Q4P PRN 04/27 221 AC CA Artificial Tears 2 GTT Q2P PRN 04/27 221 AC OU Bisacodyl 10 MG DAILY NEEDED PRN 04/27 2215 AC CA Glycerin 2 SPRAY Q4P PRN 04/27 2215 AC PO Glycerin/Mineral Oil 1 BENEDICTO Q8P PRN 04/27 2215 AC TOP Glycopyrrolate 400 MCG Q4P PRN 04/27 221 AC IV Lorazepam 1 MG Q4 HRS NEEDED PRN 04/27 221 AC IV Morphine Sulfate 2 MG Q1P PRN 04/28 1345 AC IV Morphine Sulfate 0 Q1 NEEDED PRN 04/27 2215 DC IV Scopolamine HBr 1 PAT Q72 04/30 1000 AC TOP Assessment/Plan Assessment/Recommendations: Mr. Tijerina is a 66 yo m with a PMH of PKD, Polycystic liver disease, portal HTN , admitted to hospice last evening with acute respiratory failure with hypoxemia related to ongoing liver failure, sepsis and multiple organ dysfunction and acute renal failure on CKD. Pt. in general seems comfortable with mildly labored respirations. Discussed with family and nurse, who will give morphine at this time. Order for morphine 2mg IV every hour as needed. Continue other medicines on as needed basis.
--- NOTE | 2017-04-29 14:55 | Discharge Summary ---
Visit Information Visit Dates Admission Date: 04/27/17 Discharge Date: 04/29/17 Hospital Course Course Attending Physician: Zully Kilpatrick MD Primary Care Physician: Mervin Lehman MD Hospital Course: Mr. Tijerina is a 66 yo m with a PMH of PKD, Polycystic liver disease, portal HTN , admitted to hospice last evening with acute respiratory failure with hypoxemia related to ongoing liver failure, sepsis and multiple organ dysfunction and acute renal failure on CKD. He was kept comfortable with morphine and ativan until he peacefully. Allergies: Coded Allergies: NO KNOWN ALLERGIES (02/26/15) Disposition Summary Disposition Principal Diagnosis: Acute hypoxemic respiratory failure Acute on Chronic kidney failure Acute on chronic liver failure Polycystic kidney disease Polycystic liver disease Additional Diagnosis: Portal hypertension Discharge Disposition: Discharge Instructions General Discharge Information Code Status: Hospice Patient's Diet: N/A Patient's Activity: N/A Follow-Up Instructions/Appts: N/A Copies To: Mervin Lehman MD
== END 2017-04-29 03:30 | disposition expired | DRG 871 ==
LOC: CRI 21:51
DX: A41.9 Sepsis, unspecified organism (principal); J96.01 Acute respiratory failure with hypoxia; N17.9 Acute kidney failure, unspecified; Q61.3 Polycystic kidney, unspecified; K76.6 Portal hypertension; Q44.6 Cystic disease of liver; R65.20 Severe sepsis without septic shock; Z51.5 Encounter for palliative care; K72.90 Hepatic failure, unspecified without coma; N18.9 Chronic kidney disease, unspecified
CPT/HCPCS: CCU